=== PATIENT | male | born 1965 | race Caucasian/White ===

== ENCOUNTER 2023-03-10 09:12 | Outpatient (CLI) | payer OTHER, SELFPAY ==
--- NOTE | ~2023-03-10 | CT_ITS ---
EXAMINATION: CT cervical spine wo con DATE: 03/10/2023 09:49 INDICATION: Neck pain TECHNIQUE: Computed tomography (CT) of the cervical spine was performed without intravenous contrast. The dose-length product (DLP) was 429.98 mGy-cm. Automated exposure control and iterative reconstruc tion technique were employed. COMPARISON: None FINDINGS: There are 6 mm of anterolisthesis of C3 on C4. Bone alignment is otherwise normal. There is mild loss of intervertebral disc space height from C3-4 through C7-T1. There is severe facet and unc overtebral joint osteoarthritis at C3-4 and C4-5. The odontoid process is intact. The prevertebral so ft tissues are unremarkable. Small degenerative osteophytes project from the anterior endplates of mu ltiple vertebral bodies. IMPRESSION: 1. Grade 1 anterolisthesis of C3 on C4, otherwise mild to moderate cervical spondylosis. Reviewed, dictated and finalized at location B. IMPRESSION: 1. Grade 1 anterolisthesis of C3 on C4, otherwise mild to moderate cervical spo ndylosis.
--- NOTE | ~2023-03-10 | XR_ITS ---
EXAMINATION:[id number]_CR DATE: 03/10/2023 09:37 INDICATION: Neck pain TECHNIQUE: AP, lateral, lateral swimmers and odontoid views of the cervical spine are provided. COMPARISON: None FINDINGS: There are 6 mm of anterolisthesis of C3 on C4. The odontoid process is intact. No fracture is identified. The vertebral body heights are normal. There is mild loss of intervertebral disc space height from C3-4 through C7-T1. Prevertebral soft tissues are normal. There is severe facet and unco vertebral joint osteoarthritis at C3-4 and C4-5. IMPRESSION: 1. Grade 1 anterolisthesis of C3 on C4, otherwise mild to moderate cervical spondylosis. Reviewed, dictated and finalized at location B. IMPRESSION: 1. Grade 1 anterolisthesis of C3 on C4, otherwise mild to moderate cervical spo ndylosis.
== END 2023-03-10 09:13 | disposition home or self-care (01) ==
PROVIDERS: PCP Internal Medicine; Visit Provider Neurological Surgery
DX: M48.02 Spinal stenosis, cervical region (principal); M47.892 Other spondylosis, cervical region
CPT/HCPCS: 72040; 72125

== ENCOUNTER 2024-08-12 07:50 | Emergency (ER) | payer OTHER, SELFPAY ==
--- NOTE | ~2024-08-12 | CT_ITS ---
Non-contrast Head CT History: Trauma Technique: Axial non-contrast imaging of the brain was performed. Dose reduction technique was used on this scan by utilizing automated exposure control and iterative reconstruction technique. The dose -length product (DLP) was 605.33 mGy-cm. Findings: There is no evidence of intracranial hemorrhage, mass lesion, or acute infarct. There are patchy areas of decreased attenuation in the left centrum semiovale and left frontal lobe, suggestive areas of chronic infarct.. The ventricles and subarachnoid spaces are normal in size. The calvariu m appears normal. The visualized paranasal sinuses and mastoid air cells are clear. Impression: No acute abnormality seen. 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 Reviewed, dictated and finalized at location . INE FURNACE TENDER Impression: No acute abnormality seen. Multifocal areas of probable chronic infarction in the left centrum semiovale a nd left frontal lobe.
--- NOTE | ~2024-08-12 | XR_ITS ---
EXAMINATION: XR chest 2V DATE: 08/12/2024 09:09 INDICATION: Fall. Syncope. TECHNIQUE: frontal and lateral views of the chest were obtained. COMPARISON: Chest radiograph dated 08/27/2005 FINDINGS: Patient is rotated slightly towards the right on the frontal projection. Subtle lingular opacities at the anterior left lower lung zone which could represent atelectasis or pneumonia.. No other airspace opacities, pulmonary edema, pleural effusion or pneumothorax. Heart size is normal. IMPRESSION: 1. Mild lingular opacities consistent with atelectasis versus pneumonia. Reviewed, dictated and finalized at location A. T MAKER
--- NOTE | ~2024-08-12 | CT_ITS ---
Noncontrast CT scan of the cervical spine Technique: Multiple contiguous axial [address] images of the cervical spine were obtained and rec onstructed in 2D sagittal and coronal planes on the acquisition scanner. Dose reduction technique was used on this scan by utilizing automated exposure control, adjustment of the mA and/or kV according to patient size. The dose-length product (DLP) was 359.16 mGy-cm. Clinical History: Pain COMPARISON: 03/10/2023 Findings: No acute fracture or subluxation. Stable osseous alignment from prior exam. Stable 5 mm ant erolisthesis of C3 over C4. Stable minimal grade 4 mm anterolisthesis of C4 over C5. At C2-C3, there is mild degenerative disc change. No definite canal stenosis, cord compression, or ne ural foraminal narrowing. At C3-C4, there is severe facet arthropathy. Listhesis results in probable mild canal stenosis and se aiyana bilateral neural foraminal narrowing. At C4-C5, there is advanced facet arthropathy with bilateral neural foraminal narrowing. No definite canal stenosis or cord compression. At C5-C6, there is probable bilateral neural foraminal narrowing. No definite canal stenosis or cord compression. At C6-C7, there is disc ossify complex with probable mild canal stenosis and associated bilateral elena ral foraminal narrowing probably present. Paravertebral soft tissues are unremarkable. No prevertebral soft tissue swelling. Impression: No acute fracture or subluxation of the cervical spine. There is stable 5 mm anterolisthesis of C3 ov er C4, and 4 mm anterolisthesis of C4 over C5. Moderate to advanced degenerative spondylitic changes, as above. Reviewed, dictated and finalized at [facility]. NCIAL RESERVE CLERK Impression: No acute fracture or subluxation of the cervical spine. There is stable 5 mm an terolisthesis of C3 over C4, and 4 mm anterolisthesis of C4 over C5. Moderate to advanced degenerative spondylitic changes, as above.
[2024-08-12 07:43] VITALS: BP 153/104; PULSE 110; RESP 16; TEMP 36.7; O2SAT 96
[2024-08-12 08:12] LABS: Basophils Absolute Auto 0.1 K/mm3 (0.0-0.1); Basophils Percent Auto 0.5 % (0.2-1.2); Eosinophils Absolute Auto 0.1 K/mm3 (0-0.3); Eosinophils Percent Auto 0.8 % (0-4.4); Hematocrit 43.7 % (42.0-52.0); Hemoglobin 14.3 g/dL (14.0-18.0); Immature Granulocyte Absolute 0.07 K/mm3 (0.00-0.031); Immature Granulocyte Percent A 0.4 % (0-0.5); Lymphocytes Absolute Auto 0.79 K/mm3 (0.9-3.2); Lymphocytes Percent Auto 4.4 % (18.3-44.2); Mean Corpuscular HGB Conc 32.7 g/dl (32-36); Mean Corpuscular Hemoglobin 30.3 pg (26-34); Mean Corpuscular Volume 92.6 fl (80-100); Mean Platelet Volume 11.6 fl (7.4-10.4); Monocytes Percent Auto 5.6 % (2.6-8.5); Neutrophils Absolute Auto 15.9 K/mm3 (1.3-6.7); Neutrophils Percent Auto 88.3 % (45.5-73.1); Platelet Count Result 219 k/mm3 (150-375); Red Blood Count 4.72 M/mm3 (4.6-6.20); Red Cell Distribution Width 13.2 % (11.5-14.5)
[2024-08-12] MEDS: SODIUM CHLORIDE 0.9% IV 1,000 ML 999 ML IV CONT (08:20)
[2024-08-12 08:23] LABS: Alanine Aminotransferase 21 U/L (6-50); Albumin Level 3.9 g/dL (3.5-5.1); Alkaline Phosphatase 89 U/L (38-126); Anion Gap 7 mmol/L (4-12); Aspartate Amino Transferase 19 U/L (17-59); Bilirubin,Total 0.7 mg/dL (0.2-1.3); Blood Urea Nitrogen 9 mg/dL (9-20); Carbon Dioxide 30 mmol/L (22-30); Chloride 99 mmol/L (98-107); Estimated CRCL calculation 104 ml/min; Estimated Glomerular Filt Rate > 60; Glucose 167 mg/dL (65-110); Potassium 3.8 mmol/L (3.4-5.0); Sodium 136 mmol/L (137-145)
--- NOTE | 2024-08-12 08:27 | ED_ITS ---
HPI - Fall General Chief Complaint: Fall Stated Complaint: fall History of Present Illness HPI Narrative: Patient is a 58-year-old male who presents ER after falling out of his bed. He reports he did not stand up to get out of bed and merely woke up on the ground surrounded by healthcare workers. He does have contusion to left forehead. His roommate reports he was unconscious. Patient has no reports of pain. He does have an abrasion to left forearm. He has mild neck discomfort and is placed in a C-collar. Denies any recent symptoms of illness. Related Data Home Medications ?Medication ?Instructions ?Recorded ?Confirmed ?Last Taken ?Type alprazolam 0.5 mg tablet 0.5 mg PO TID PRN 01/10/23 Unknown History empagliflozin 10 mg-metformin ER 1 tablet PO DAILY 01/10/23 Unknown History 1,000 mg tablet,extended release 24hr (Synjardy XR) glimepiride 4 mg tablet 4 mg PO QAM 01/10/23 Unknown History lisinopril 20 1 tablet PO DAILY 01/10/23 Unknown History mg-hydrochlorothiazide 12.5 mg tablet pioglitazone 15 mg tablet 15 mg PO DAILY 01/10/23 Unknown History simvastatin 40 mg tablet 40 mg PO DAILY 01/10/23 Unknown History Allergies Allergy/AdvReac Type Severity Reaction Status Date / Time No Known Allergies Allergy Unverified 01/10/23 09:00 Review of Systems 2 Review of Systems: All systems reviewed & are unremarkable except as noted in HPI and below Constitutional: Constitutional: Reports no additional constitutional complaints ENT: Reports system reviewed and no additional complaints, except as documented Cardiovascular: Cardiovascular: Reports no additional cardiovascular complaints Respiratory: Respiratory: Reports no additional respiratory complaints Musculoskeletal: Musculoskeletal: Reports no additional musculoskeletal complaints Neurologic: Reports system reviewed and no additional complaints, except as documented [facility] Family History Family History (Updated 01/10/23 @ 09:08 by Jessica Snyder MA) Father Diabetes mellitus Cancer Mother Hypertension Heart disease Social History Social History (Updated 01/10/23 @ 09:07 by Jessica Snyder MA) Social History: Clifton is very confident filling out medical forms. In the last 12 months he has not received assistance from an organization or program. 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 Lack of Transportation: No Lack of Food: Sometimes True Current Housing: I Have Housing Concerned About Future Housing: No Difficulty Paying Gas/Electric Bills: No Difficulty Paying for Meds: No Currently Unemployed: No Education: High School Diploma/GED Difficulty w/ Childcare or Family Care: No Living arrangements: alone Occupation/Education: occupation 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 HEAD: Normocephalic, atraumatic. ENT: Mucous membranes moist. NECK: Supple. No midline tenderness, C-spine immobilized. CHEST: Clear to auscultation. No respiratory distress. HEART: Regular rate and rhythm. Normal peripheral pulses. ABDOMEN: Soft, nontender, nondistended. G-tube in epigastric. EXTREMITIES: Normal range of motion. No edema. SKIN: Warm, dry, no rash. Left forearm abrasion. NEURO: Alert and oriented x3. PSYCH: Normal mood and affect. Course Course Emergency Course: Patient resting comfortably. No complaints. Hydrated. Ambulatory without hypoxia and with a steady gait using walker. Appropriate for discharge home. Will place on antibiotics given lingular abnormality an elevated white blood cell count. Vital Signs Vital signs: Vital Signs Temperature 98.1 F 08/12/24 07:43 Pulse Rate 110 H 08/12/24 07:43 Respiratory Rate 16 08/12/24 07:43 Blood Pressure 153/104 H 08/12/24 07:43 Pulse Oximetry 96 08/12/24 07:43 Oxygen Delivery Room Air 08/12/24 07:43 Temperature 98.1 F 08/12/24 07:43 Pulse Rate 110 H 08/12/24 07:43 Respiratory Rate 16 08/12/24 07:43 Blood Pressure 153/104 H 08/12/24 07:43 Pulse Oximetry 96 08/12/24 07:43 Oxygen Delivery Room Air 08/12/24 07:43 MDM - Fall Lab Data 08/12/24 08:05 08/12/24 08:05 Labs: Lab Results 08/12/24 08/12/24 Range/Units 08:05 08:52 WBC 18.0 H (4.5-10.0) K/mm3 RBC 4.72 (4.6-6.20) M/mm3 Hgb 14.3 (14.0-18.0) g/dL Hct 43.7 (42.0-52.0) % MCV 92.6 (80-100) fl MCH 30.3 (26-34) pg MCHC 32.7 (32-36) g/dl RDW 13.2 (11.5-14.5) % Plt Count 219 (150-375) k/mm3 MPV 11.6 H (7.4-10.4) fl Immature Gran % (Auto) 0.4 (0-0.5) % Neut % (Auto) 88.3 H (45.5-73.1) % Lymph % (Auto) 4.4 L (18.3-44.2) % [place] % (Auto) 5.6 (2.6-8.5) % Eos % (Auto) 0.8 (0-4.4) % Baso % (Auto) 0.5 (0.2-1.2) % Lymph # (Auto) 0.79 L (0.9-3.2) K/mm3 Cascade # (Auto) 1.0 H (0.1-0.6) K/mm3 Eos # (Auto) 0.1 (0-0.3) K/mm3 Baso # (Auto) 0.1 (0.0-0.1) K/mm3 Abs Immat Gran (auto) 0.07 H (0.00-0.031) K/mm3 Absolute Neuts (auto) 15.9 H (1.3-6.7) K/mm3 Absolute Nucleated RBC 0.000 (0.0-0.012) K/mm3 Nucleated RBC % 0.0 (0.0-0.2) % Sodium 136 L (137-145) mmol/L Potassium 3.8 (3.4-5.0) mmol/L Chloride 99 (98-107) mmol/L Carbon Dioxide 30 (22-30) mmol/L Anion Gap 7 (4-12) mmol/L BUN 9 (9-20) mg/dL Creatinine 0.67 L (0.7-1.3) mg/dL Estim Creat Clear Calc 104 ml/min Estimated GFR > 60 (59 - ) Glucose 167 H (65-110) mg/dL Calcium 9.0 (8.4-10.2) mg/dL Total Bilirubin 0.7 (0.2-1.3) mg/dL AST 19 (17-59) U/L ALT 21 (6-50) U/L Alkaline Phosphatase 89 (38-126) U/L Total Creatine Kinase 56 (55-170) U/L Total Protein 7.0 (6.3-8.2) g/dL Albumin 3.9 (3.5-5.1) g/dL Urine Color Yellow (Yellow) Urine Appearance Clear (Clear) Urine pH 8.0 (5.0-9.0) Ur Specific [place] 1.010 (1.001-1.035) Urine Protein Trace (Negative) mg/dL Urine Glucose (UA) Negative (Negative) mg/dL Urine Ketones Negative (Negative) mg/dL Ur Blood (Man) Negative (Negative) Urine Nitrate Negative (Negative) Urine Bilirubin Negative (Negative) Urine Urobilinogen 0.2 (<2.0) mg/dL Leukocyte Esterase Rfl Negative (Negative) KO/UL Urine RBC 0-2 (0-2) /hpf Urine WBC 0-5 (0-3) /hpf Ur Squamous Epith Cells None seen (Few) /hpf Urine Bacteria None seen /hpf Urine Casts 0-2 Imaging Data Radiologist's impression: ITS Impressions Head CT 08/12/24 08:31 Impression: No acute abnormality seen. 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 Cervical Spine CT 08/12/24 08:32 Impression: No acute fracture or subluxation of the cervical spine. There is stable 5 mm anterolisthesis of C3 over C4, and 4 mm anterolisthesis of C4 over C5. Moderate to advanced degenerative spondylitic changes, as above. Chest X-Ray 08/12/24 09:09 IMPRESSION: 1. Mild lingular opacities consistent with atelectasis versus pneumonia. Discharge Plan Discharge Clinical Impression: Pneumonia, Contusion of head Patient Disposition: Home, Self-Care Condition: Stable Instructions: Antibiotic Form, Pneumonia (ED) Additional Instructions: Please return to the emergency department if you develop severe and persistent chest pain, difficulty breathing, dizziness, leg swelling or if you are coughing up blood as these can be signs of a medical emergency. Please call your doctor for a follow up appointment to determine the need for further testing. Patient Language: German Prescriptions: New amoxicillin-pot clavulanate 875-125 mg tablet 1 tablet PO Q12H Qty: 10 0RF No Action alprazolam 0.5 mg tablet 0.5 mg PO TID PRN glimepiride 4 mg tablet 4 mg PO QAM Rx Instructions: administer with breakfast lisinopril-hydrochlorothiazide 20-12.5 mg tablet 1 tablet PO DAILY simvastatin 40 mg tablet 40 mg PO DAILY Synjardy XR 10-1,000 mg tablet, IR - ER, biphasic 24hr 1 tablet PO DAILY pioglitazone 15 mg tablet 15 mg PO DAILY Follow-up/Referrals: Jose,Clifton Glasgow MD [Primary Care Provider] - 1 Week
--- OUTSIDE RECORDS SUMMARY | 2024-08-12 08:27 | XMS_ITS | Clinical Summary ---
Author Organization [employer] Administrative Offices Address [address] [place] [address] Care Team Providers Care Central Aisle Cashier Name Role Phone Clifton Garcia MD Primary Care Provider [phone] Allergies No known active allergies Medications lisinopril-hydr ochlorothiazide (ZESTORETIC) 20-12.5 mg Oral tablet Take 1 Tab by mouth daily. Active metFORMIN (GLUCOPHAGE) 500 mg Oral tablet Take 1 Tab by mouth 2 times daily. Active ALPRAZolam (XANAX) 0.25 mg Oral tablet Take 0.5 mg by mouth 3 times daily as needed . Active sertraline (ZOLOFT) 50 mg Oral tablet Take 2 Tablets by mouth daily . Active pioglitazone (ACTOS) 15 mg tablet Take 15 mg by mouth daily with breakfast. Active glimepiride (AMARYL) 4 mg tablet Take 4 mg by mouth daily with breakfast. Active ibuprofen (MOTRIN) 600 mg tablet Take 1 Tablet (600 mg) by mouth every 8 hours. 20 Tablet 09/09/2017 Active cyclobenzaprine (FLEXERIL) 5 mg Tablet Take 1 Tablet (5 mg) by mouth 3 times daily as needed for Spasm. 12 Tablet 09/09/2017 Active simvastatin (ZOCOR) 10 mg tablet Take 40 mg by mouth daily with supper . Active metFORMIN (GLUCOPHAGE XR) 500 mg Extended Release 24 hour tablet Take 500 mg by mouth daily with breakfast. Active Active Problems Problem Noted Date Diagnosed Date Episode of syncope 11/16/2018 Leukocytosis (leucocytosis) 11/16/2018 Type 2 diabetes mellitus with hyperglycemia 10/22 Tobacco abuse 11/16/2018 Hypotensive episode Immunizations Immunization Administration Dates Next Due (PNEUMOVAX 23)(50 YRS UP) PN EUMOCOCCAL POLYSACCHARIDE (PPV23) 0.5 ML, IM 11/16/2018() Family History Medical History Relation Name Comments Cancer Brother Cancer Father Diabetes Father Hypertension Father Heart Disease Mother Hypertension Mother Relation Name Status Comments Brother Alive Father Mother Sister Alive Social History Tobacco Use Types Packs/Day Years Used Date Smoking Tobacco: Every Day Cigarettes 1 25 Smokeless Tobacco: Never Tobacco Cessation:Ready to Q uit: Yes; Counseling Given: Yes Comments:Jun 2007 Alcohol Use Standard Drinks/Week Comments Yes 3 (1 standard drink = 0.6 oz pur e alcohol) Sex and Gender Information Value Date Recorded Sex Assigned at Not on file 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 Gender Identity Not on file Sexual Orientation Not on file Occupation Industry Job Start Date Job End Date Not on file Not on file Not on file Not on file Last Filed Vital Signs Vital Sign Reading Time Taken Comments Blood Pressure 188/85 11/16/2018 9:53 AM CDT Pulse 73 11/16/2018 8:00 AM CDT Temperature 36.8 C (98.3 F) 11/16/2018 8:00 AM CDT Respiratory Rate 18 11/16/2018 8:00 AM CDT Oxygen Saturation 99% 11/16/2018 8:00 AM CDT Inhaled Oxygen Concentration - - Weight 81.3 kg (179 lb 4.8 oz) 11/15/2018 8:42 P M CDT Height 180.3 cm (5' 11 ) 11/15/2018 8:42 PM CDT Body Mass Index 25.01 11/15/2018 8:42 PM CDT Plan of Treatment Health Maintenance Due Date Last Done Comments DIABETES ANNUAL FOOT EXAM 09/28/1981 DIABETES ANNUAL RETINAL EXAM 09/28/1981 DIABETES MICROALBUMIN ANNUAL SCREEN 09/28/1981 LDL CHOLESTEROL ANNUAL 09/28/1981 DTAP/TDAP/TD VACCINES (1 - Tdap) 09/28/1982 COLORECTAL SCREENING 09/28/2008 Colorectal Cancer Screening 09/28/2008 FIT-DNA Q 3 years 09/28/2008 FIT/FOBT Q 1 year 09/28/2008 Flex Sig/CT Colonography Q 5 years 09/28/2008 ZOSTER VACCINE (1 of 2) 09/28/2013 DIABETES HBA1C Q 6 MONTHS 05/18/20202019, 11/15/2018 INFLUENZA VACCINE (#1) 2024 RSV VACCINE (60+ or ) (1 - 1-dose 75+ series) 09/28/2038 HEPATITIS B VACCINES Aged Out No long er eligible based on patient's age to complete this topic Procedures Procedure Name Priority Date/Time Associated Diagnosis Comments HEMOGLOBIN A1C Routine 11/15/2018 4:43 PM CDT from Last 3 Months or Most Recently Relevant to Health Maintenance Results * (ABNORMAL) HEMOGLOBIN A1C (11/15/2018 4:43 PM CDT) HEMOGLOBIN A1C 10.6(H) See comment % 11/15/2018 9:12 PM CDT [facility] EST. AVG GLUCOSE, A1C 258 mg/dL 11/15/2018 9:12 PM CDT [facility] [facility] [facility] Blood Venipuncture / Unknown 11/15/2018 4:43 PM CDT 11/15/2018 4:49 PM CDT Narrative [facility] [employer] [facility] - 11/15/2018 9:12 PM CDT HGB A1C INTERPRETATION NORMAL: <5.7% PRE-DIABETES: 5.7 - 6.4% DIABETES: 6.5% OR GREATER us Zee Isaacs NP CHEMISTRY ORDERABLES Final Re sult [facility] [employer] [facility] CLIA# [id number] [place] [address] from Last 3 Months or Most Recently Relevant to Health Maintenance Insurance [facility] [id number] [facility] [id number] Advance Directives For more information, please contact: [phone] * Full Code (Latest Code Status on File) Date Activated Date Inactivated Comments 11/15/2018 8:45 PM 11/16/2018 3:20 PM * Full Code Date Activated Date Inactivated Comments 10/24/2009 7:24 AM 10/25/2009 2:32 AM Care Teams Central Aisle Cashier Relationship Specialty [place] [address] [place] [address] PCP - General 04/25/09
--- OUTSIDE RECORDS SUMMARY | 2024-08-12 08:28 | XMS_ITS | Encounter Summary ---
Author Organization [employer] Address 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 Gender Identity Not on file Sexual Orientation Not on file documented as of this encounter Plan of Treatment Not on file documented as of this encounter Procedures Procedure Name Priority Date/Time Associated Diagnosis Comments POC GLUCOSE Routine 09/02/2007 3:53 PM CDT PATHOLOGY Routine 09/02/2007 2:37 PM CDT POC GLUCOSE Routine 09/02/2007 2:36 PM CDT PATHOLOGY Routine 09/02/2007 1:48 PM CDT POC GLUCOSE Routine 09/02/2007 1:05 PM CDT POC GLUCOSE Routine 09/02/2007 12:23 PM CDT POC, BLOOD GASES Routine 09/02/2007 10:3 0 AM CDT documented in this encounter Results * (ABNORMAL) POC GLUCOSE (09/02/2007 3:53 PM CDT) GLUCOSE POC 196(H) 65 - 99 mg/dL [facility] Venous blood specimen (specimen) 09/02/2007 3:53 PM CDT 09/02/2007 3:53 PM CDT us Stephania Howard MD POINT OF CARE TESTING Final Resu lt Performing Organization Address City/State/[facility] Co de Phone Number [facility] [address] [place] [address] * PATHOLOGY (09/02/2007 2:37 PM CDT) FINAL REPORT [facility] [address] [place] [id number] Patient: FRANCK LOUISE : 1965 Procedure Date: 09/02/2007 Accession Date: 09/02/2007 Case No: [id number] Ordering Dr: STEPHANIA HOWARD Case types AW, BW, FW, NW and SH are performed by [place], [place] SURGICAL PATHOLOGY & NON-GYNECOLOGIC CYTOPATHOLOGY REPORT DIAGNOSIS LEFT NECK, FINE NEEDLE ASPIRATE, THINPREP CYTOLOGY AND CELL BLOCK EXAMINATION: - METASTATIC SQUAMOUS CARCINOMA (SEE DESCRIPTION). Specimen Description: FNA left neck mass. Operative Procedure: FNA left neck mass. Patient Information/Histor y/Diagnosis: A 41-year-old with left neck mass and left tonsillar lesion. See also [id number]. Gross: Received is one container with 30 cc blood-tinged fluid received in [employer]toLyt. MIKE/SHAJI 09.03.2007 03:24 pm Microscopic: The ThinPrep cytology preparation displays a cellular sample consisting of numerous pyknotic cells intermingled with atypical degenerated squamous epithelial cells; a few of these cells qualify as dysplastic keratinocytes. Rare anucleated squames are also present. The overall pattern is highly suspicious for squamous carcinoma. The cell block is examined at multiple levels. It displays isolated microfragments of squamous carcinoma set within a background of cellular degeneration. A single piece of distorted lymphoid stroma is also present. BBK/LKP 09.03.2007 03:24 pm Staging Form: No. ELECTRONIC SIGNATURE FOR AGUSTIN SINGER M.D.- 09/03/07 03:53 pm INTERFACE SYSTEM 09/02/2007 2:37 PM CDT Stephania Howard MD PATHOLOGY/CYTOLOGY ORDERABLES Fi nal Result Performing Organization Address City/[facility]/ZIP Co de Phone Number INTERFACE SYSTEM Refer to clinic/hospital department * (ABNORMAL) POC GLUCOSE (09/02/2007 2:36 PM CDT) GLUCOSE POC 210(H) 65 - 99 mg/dL [facility] Venous blood specimen (specimen) 09/02/2007 2:36 PM CDT 09/02/2007 2:36 PM CDT Stephania Howard MD POINT OF CARE TESTING Final Resu lt Performing Organization Address [facility] Co de Phone Number [facility] [address] [place] [address] * PATHOLOGY (09/02/2007 1:48 PM CDT) FINAL REPORT [facility] [address] [place], [place] [address] Patient: FRANCK LOUISE : 1965 Procedure Date: 09/02/2007 Accession Date: 09/02/2007 Case No: [id number] Ordering Dr: STEPHANIA HOWARD Case types AW, BW, FW, NW and SH are performed by [facility] [place], [place] SURGICAL PATHOLOGY & NON-GYNECOLOGIC CYTOPATHOLOGY REPORT DIAGNOSIS OROPHARYNX, LEFT PALATINE TONSIL, BIOPSY FOR FROZEN SECTION: - SQUAMOUS CELL CARCINOMA. - SEVERE DYSPLASIA. OROPHARYNX, LEFT PALATINE TONSIL, BIOPSY FOR PERMANENT SECTIONS: - DYSPLASIA, FOCAL. Specimen Description: (1) Left tonsil-for frozen section; (2) left tonsils-permanent. Operative Procedure: Micro-direct laryngoscopy; left tonsil biopsy; esophagoscopy. Patient Information/Histor y/Diagnosis: Left neck mass; left tonsil mass. Frozen Section: FS1: Tonsil, left, biopsy: - Architecturally complex atypical squamous proliferation, favor at least high-grade squamous dysplasia; cannot exclude invasion. - Acute inflammation. - Bacterial aggregates. [facility] 09.02.2007 04:01 pm Gross: Received are two containers labeled Franck Louise. Received in the first container, additionally labeled left tonsil for frozen section, is a 0.5 x 0.4 x 0.2-cm aggregate of multiple pink-cardoso tissue fragments which range from 0.1 cm to 0.3 cm in greatest dimension. The specimen is frozen entirely as FS1. The frozen section remnant is submitted in AFS1. Received in the second container, labeled left tonsil, is a 0.5 x 0.4 x 0.1-cm aggregate of pink-cardoso tissue fragments, which are submitted in block B1. [facility] 09.02.2007 04:01 pm Microscopic: Received are slides labeled [id number] Franck Louise. Review of frozen sections and subsequent permanent sections of left tonsil identify squamous cell carcinoma. The tonsillar epithelium is remarkable for foci of severe dysplasia. There is irregular extension of epithelium into the subepithelial stroma. Stromal fibrosis and infiltrates of plasma cells are present. The pattern is characteristic of invasive squamous cell carcinoma arising in the setting of severe dysplasia. The extent of invasion cannot be determined from this mucosal biopsy. Sections of left tonsillar biopsy for permanent sample stratified squamous epithelium and subepithelial stroma. There is very focal dysplasia of uncertain grade. Invasive carcinoma is not identified in this biopsy material. Summary of Significant Characteristics: Specimen Type: Biopsy. Tumor Site(s): Left tonsil. Tumor Size: Unknown. Histologic Type(s): Squamous cell carcinoma. Histologic Grade: Moderately differentiated. Extent of Invasion (TNM): TX NX MX. Perineural Invasion: Not identified. PJC/DRC 09.03.2007 12:59 pm Staging Form: Yes. ELECTRONIC SIGNATURE FOR SARAH SIN M.D.- 09/03/07 03:16 pm INTERFACE SYSTEM 09/02/2007 1:48 PM CDT Stephania Howard MD PATHOLOGY/CYTOLOGY ORDERABLES Fi nal Result Performing Organization Address City/[facility] Co de Phone Number INTERFACE SYSTEM Refer to clinic/hospital department * (ABNORMAL) POC GLUCOSE (09/02/2007 1:05 PM CDT) GLUCOSE POC 207(H) 65 - 99 mg/dL [facility] Venous blood specimen (specimen) 09/02/2007 1:05 PM CDT 09/02/2007 1:05 PM CDT Stephania Howard MD POINT OF CARE TESTING Final Resu lt Performing Organization Address [facility] Co de Phone Number [facility] [address] [place] [address] * (ABNORMAL) POC GLUCOSE (09/02/2007 12:23 PM CDT) GLUCOSE POC 197(H) 65 - 99 mg/dL [facility] Venous blood specimen (specimen) 09/02/2007 12:23 PM CDT 09/02/2007 12:23 PM CDT Stephania Howard MD POINT OF CARE TESTING Final Resu lt Performing Organization Address [facility] Co de Phone Number [facility] [address] [place] [address] * (ABNORMAL) POC RT, BLOOD GASES (09/02/2007 10:30 AM CDT) POTASSIUM POC 4.3 3.5 - 4.9 mmol/L [facility] HEMATOCRIT POC 49.0(H) 40.0 - 48.0 % [facility] PATIENT'S TEMPERATURE 37.0 Degree C [facility] COMMENT, GASES POC NOTIFIED [facility] Blood specimen (specimen) 09/02/2007 10:30 AM CDT 09/02/2007 10:30 AM CDT us Stephania Howard MD CHEMISTRY ORDERABLES Final Resul t Performing Organization Address City/State/[facility] Co de Phone Number [facility] [address] [place] [address] documented in this encounter Visit Diagnoses Not on filedocumented in this encounter Care Teams Felting Machine Operator Relationship Specialty [place] [address] [place] [address] PCP - General 04/25/09 documented as of this encounter
--- OUTSIDE RECORDS SUMMARY | 2024-08-12 08:28 | XMS_ITS | Referral Summary ---
Author Organization [facility] Address [address] [place] [address] Care Team Providers Care Marketing Communications Manager Name Role Phone Clifton Garcia MD Primary Care Provider [phone] Source Comments [facility],non-owned Affiliates and Associated Physician Practices is amultiple site organization consisting of ambulatory clinics and hospital sitesin [place], [place], [place] and [place]. This disclosure is being madepursuant to the Care Everywhere program and may not contain all information available regarding this patient. Last updated 18.[facility] [employer] Encounters Date Type Department Care Team Description 04/28/2024 9:22 AM ASSISTANT SCIENTIST - 06/02/2024 7:58 PM ASSISTANT SCIENTIST Hospital Encounter [facility] [id number] [place] [phone] Noam Jeff MD Esechie, Aimalohi, MD Jain, Aman, DO Edgell, Randall C, MD Scott, Jordan K, MD Linares, Guillermo, MD Nangle, Sarah E, DO Sonoda, Kento, MD Madi, Mahmoud, MD Fernelius, Joshua, MD Syed, MD Patrick Harris Keniesha O, MD Patel, Radhika, MD Internal Medicine Discharge Disposition: [facility] from Last 3 Months Allergies No known active allergies Medications * Be aware that medications may not be up to date on this document. Alwaysverify current medications with the patient. Medication Sig Dispensed Refills Start Date End Date Status metFORMIN (Glucophage) 500 MG tablet Take 1 (one) tablet by mouth 2 times daily with morning and evening meal Active polyethylene glycol 3350 (Miralax) 17 g packet 17 (seventeen) g by Enteral Tube route once daily 05/19/2024 Active senna (Senokot) 8.6 MG tablet 1 (one) tablet by Enteral Tube route once daily 05/19/2024 Active insulin aspart (NovoLOG) pen Inject 0 (zero) Units to 24 (twenty four) Units subcutaneously every 4 hours 05/18/2024 Active clopidogrel (plaVIX) 75 MG tablet Take 1 (one) tablet by mouth once daily 06/01/2024 Active atorvastatin (Lipitor) 80 MG tablet Take 1 (one) tablet by mouth at bedtime 06/01/2024 Active aspirin (Aspirin) 81 MG chew tablet Take 1 (one) tablet by mouth once daily 06/01/2024 Active finasteride (Proscar) 5 MG tablet Take 1 (one) tablet by mouth once daily 06/01/2024 Active insulin glargine (Lantus/Semglee) 100 units/mL pen Inject 30 (thirty) Units subcutaneously at bedtime 06/01/2024 Active vitamin D3 (Cholecalciferol) 25 MCG (1000 UNITS) tablet 4 (four) tablets by Enteral Tube route once daily 06/02/2024 Active multiple vitamins with iron tablet tablet 1 (one) tablet by Enteral Tube route once daily 06/02/2024 Active midodrine (Proamatine) 10 MG tablet 1 (one) tablet by Enteral Tube route every 8 hours 06/02/2024 Active Active Problems Problem Noted Date Diagnosed Date Severe malnutrition 06/01/2024 Adrenal insufficiency 05/08/2024 Partial anterior cerebral circulation infarction 05/04/2024 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 (FL UZONE; FLULAVAL; FLUARIX; AFLURIA TRIVALENT; 6MO+), 0.5 ML (IIV3) 06/01/2024 Social History Tobacco Use Types Packs/Day Years Used Date Smoking Tobacco: Every Day Pipe Tobacco Cessation:Ready to Q uit: Not Asked; Counseling Given: Not Answered AUDIT-C Answer Date Recorded Q1: How often do you have a drink containing alc ohol? Monthly or less 04/28/2024 Q2: How many drinks containi ng alcohol do you have on a typical day when you are drinking? 1 or 2 04/28/2024 Q3: How often do you have si x or more drinks on one occasion? Monthly 04/28/2024 Overall Financial Resource Strain (CARDIA) Answe r Date Recorded How hard is it for you to pa y for the very basics like food, housing, medical care, and heating? Not hard at all 04/28/2024 PHQ-2 Answer Date Recorded Patient Health Questionnaire-2 Score 0 05/12/2024 [facility] [place] [facility] - Occupational Stress Questionnaire Answer Date Recorded Do you feel stress - tense, restless, nervous, or anxious, or unable to sleep at night because your mind is troubled all the time - these days? Not at all 04/28/2024 Hunger Vital Sign Answer Date Recorded Within the past 12 months, y ou worried that your food would run out before you got the money to buy more. Never true 04/28/20 24 Within the past 12 months, t he food you bought just didn't last and you didn't have money to get more. Never true 04/28/2024 PRAPARE - Transportation Answer Date Re corded In the past 12 months, has l ack of transportation kept you from medical appointments or from getting medications? No 11/2023 In the past 12 months, has l ack of transportation kept you from meetings, work, or from getting things needed for daily living? No 04/28/2024 Housing Stability Vital Sign Answer Jose e Recorded In the last 12 months, was t here a time when you were not able to pay the mortgage or rent on time? No 04/28/2024 In the past 12 months, how m any times have you moved where you were living? 0 04/28/2024 At any time in the past 12 m [facility], were you homeless or living in a custodial (including now)? No 04/28/2024 Sex and Gender Information Value Date Recorded Sex Assigned at Not on file Gender Identity Not on file Sexual Orientation Not on file Last Filed Vital Signs Vital Sign Reading Time Taken Comments Blood Pressure 138/103 06/02/2024 7:26 PM ASSISTANT SCIENTIST Pulse 101 06/02/2024 7:26 PM ASSISTANT SCIENTIST Temperature 36.4 C (97.5 F) 06/02/2024 7:34 AM ASSISTANT SCIENTIST Respiratory Rate 18 06/02/2024 4:27 AM ASSISTANT SCIENTIST Oxygen Saturation 98% 06/02/2024 7:34 AM ASSISTANT SCIENTIST Inhaled Oxygen Concentration 28% 05/06/2024 7 :59 PM ASSISTANT SCIENTIST Weight 56.2 kg (124 lb) 05/27/2024 9:15 PM ASSISTANT SCIENTIST Height 177.8 cm (5' 10 ) 05/11/2024 8:00 AM ASSISTANT SCIENTIST Body Mass Index 17.79 05/11/2024 8:00 AM ASSISTANT SCIENTIST Functional Status Functional Status Response Date of Assess ment Is person deaf or have serious hearing difficult y? Yes 04/28/2024 Is person blind or have serious difficulty seein g? No 04/28/2024 Does person have serious dif ficulty walking/climbing stairs? No 04/28/2024 Does person have difficulty dressing/bathing? Ye s 04/28/2024 Does person have difficulty doing errands alone? Yes 04/28/2024 Cognitive Status Response Date of Assessm ent Does person have difficulty concentrating/remembering/making decisions? Yes 04/28/2024 Plan of Treatment Not on file Procedures Procedure Name Priority Date/Time Associated Diagnosis Comments GLUCOSE - POINT OF CARE Routine 06/02/2024 4:32 PM ASSISTANT SCIENTIST GLUCOSE - POINT OF CARE Routine 06/02/2024 11:17 AM ASSISTANT SCIENTIST GLUCOSE - POINT OF CARE Routine 06/02/2024 7:57 AM ASSISTANT SCIENTIST GLUCOSE - POINT OF CARE Routine 06/02/2024 4:35 AM ASSISTANT SCIENTIST GLUCOSE - POINT OF CARE Routine 06/02/2024 12:30 AM ASSISTANT SCIENTIST GLUCOSE - POINT OF CARE Routine 06/01/2024 8:52 PM ASSISTANT SCIENTIST GLUCOSE - POINT OF CARE Routine 06/01/2024 5:23 PM ASSISTANT SCIENTIST GLUCOSE - POINT OF CARE Routine 06/01/2024 2:47 PM ASSISTANT SCIENTIST GLUCOSE - POINT OF CARE Routine 06/01/2024 8:53 AM ASSISTANT SCIENTIST GLUCOSE - POINT OF CARE Routine 06/01/2024 7:31 AM ASSISTANT SCIENTIST GLUCOSE - POINT OF CARE Routine 06/01/2024 4:53 AM ASSISTANT SCIENTIST GLUCOSE - POINT OF CARE Routine 06/01/2024 12:38 AM ASSISTANT SCIENTIST GLUCOSE - POINT OF CARE Routine 05/31/2024 8:27 PM ASSISTANT SCIENTIST GLUCOSE - POINT OF CARE Routine 05/31/2024 4:27 PM ASSISTANT SCIENTIST GLUCOSE - POINT OF CARE Routine 05/31/2024 11:50 AM ASSISTANT SCIENTIST GLUCOSE - POINT OF CARE Routine 05/31/2024 8:31 AM ASSISTANT SCIENTIST GLUCOSE - POINT OF CARE Routine 05/31/2024 5:43 AM ASSISTANT SCIENTIST GLUCOSE - POINT OF CARE Routine 05/31/2024 12:42 AM ASSISTANT SCIENTIST GLUCOSE - POINT OF CARE Routine 05/30/2024 8:16 PM ASSISTANT SCIENTIST GLUCOSE - POINT OF CARE Routine 05/30/2024 4:40 PM ASSISTANT SCIENTIST GLUCOSE - POINT OF CARE Routine 05/30/2024 12:21 PM ASSISTANT SCIENTIST GLUCOSE - POINT OF CARE Routine 05/30/2024 8:19 AM ASSISTANT SCIENTIST GLUCOSE - POINT OF CARE Routine 05/30/2024 4:55 AM ASSISTANT SCIENTIST GLUCOSE - POINT OF CARE Routine 05/30/2024 1:09 AM ASSISTANT SCIENTIST GLUCOSE - POINT OF CARE Routine 05/30/2024 12:16 AM ASSISTANT SCIENTIST PHOSPHORUS BLOOD Routine 05/29/2024 8:44 PM ASSISTANT SCIENTIST MAGNESIUM BLOOD Routine 05/29/2024 8:44 PM ASSISTANT SCIENTIST CBC W/O DIFFERENTIAL Routine 05/29/2024 8:44 PM ASSISTANT SCIENTIST COMPREHENSIVE METABOLIC PANEL Routine 05/29/2024 8:44 PM ASSISTANT SCIENTIST GLUCOSE - POINT OF CARE Routine 05/29/2024 8:26 PM ASSISTANT SCIENTIST GLUCOSE - POINT OF CARE Routine 05/29/2024 11:33 AM ASSISTANT SCIENTIST GLUCOSE - POINT OF CARE Routine 05/29/2024 8:22 AM ASSISTANT SCIENTIST GLUCOSE - POINT OF CARE Routine 05/29/2024 3:46 AM ASSISTANT SCIENTIST GLUCOSE - POINT OF CARE Routine 05/29/2024 1:10 AM ASSISTANT SCIENTIST GLUCOSE - POINT OF CARE Routine 05/28/2024 8:19 PM ASSISTANT SCIENTIST GLUCOSE - POINT OF CARE Routine 05/28/2024 5:03 PM ASSISTANT SCIENTIST GLUCOSE - POINT OF CARE Routine 05/28/2024 11:43 AM ASSISTANT SCIENTIST GLUCOSE - POINT OF CARE Routine 05/28/2024 7:51 AM ASSISTANT SCIENTIST GLUCOSE - POINT OF CARE Routine 05/28/2024 3:47 AM ASSISTANT SCIENTIST GLUCOSE - POINT OF CARE Routine 05/27/2024 11:19 PM ASSISTANT SCIENTIST GLUCOSE - POINT OF CARE Routine 05/27/2024 8:14 PM ASSISTANT SCIENTIST GLUCOSE - POINT OF CARE Routine 05/27/2024 4:45 PM ASSISTANT SCIENTIST GLUCOSE - POINT OF CARE Routine 05/27/2024 12:20 PM ASSISTANT SCIENTIST GLUCOSE - POINT OF CARE Routine 05/27/2024 11:40 AM ASSISTANT SCIENTIST GLUCOSE - POINT OF CARE Routine 05/27/2024 8:29 AM ASSISTANT SCIENTIST GLUCOSE - POINT OF CARE Routine 05/27/2024 4:42 AM ASSISTANT SCIENTIST GLUCOSE - POINT OF CARE Routine 05/27/2024 12:25 AM ASSISTANT SCIENTIST GLUCOSE - POINT OF CARE Routine 05/26/2024 8:38 PM ASSISTANT SCIENTIST GLUCOSE - POINT OF CARE Routine 05/26/2024 5:03 PM ASSISTANT SCIENTIST GLUCOSE - POINT OF CARE Routine 05/26/2024 1:03 PM ASSISTANT SCIENTIST GLUCOSE - POINT OF CARE Routine 05/26/2024 12:24 PM ASSISTANT SCIENTIST GLUCOSE - POINT OF CARE Routine 05/26/2024 8:19 AM ASSISTANT SCIENTIST GLUCOSE - POINT OF CARE Routine 05/26/2024 3:28 AM ASSISTANT SCIENTIST GLUCOSE - POINT OF CARE Routine 05/26/2024 12:32 AM ASSISTANT SCIENTIST GLUCOSE - POINT OF CARE Routine 05/25/2024 8:21 PM ASSISTANT SCIENTIST GLUCOSE - POINT OF CARE Routine 05/25/2024 4:49 PM ASSISTANT SCIENTIST GLUCOSE - POINT OF CARE Routine 05/25/2024 12:08 PM ASSISTANT SCIENTIST GLUCOSE - POINT OF CARE Routine 05/25/2024 11:53 AM ASSISTANT SCIENTIST GLUCOSE - POINT OF CARE Routine 05/25/2024 7:51 AM ASSISTANT SCIENTIST GLUCOSE - POINT OF CARE Routine 05/25/2024 5:03 AM ASSISTANT SCIENTIST GLUCOSE - POINT OF CARE Routine 05/24/2024 11:05 PM ASSISTANT SCIENTIST GLUCOSE - POINT OF CARE Routine 05/24/2024 8:55 PM ASSISTANT SCIENTIST GLUCOSE - POINT OF CARE Routine 05/24/2024 4:24 PM ASSISTANT SCIENTIST GLUCOSE - POINT OF CARE Routine 05/24/2024 12:02 PM ASSISTANT SCIENTIST GLUCOSE - POINT OF CARE Routine 05/24/2024 8:28 AM ASSISTANT SCIENTIST GLUCOSE - POINT OF CARE Routine 05/24/2024 12:16 AM ASSISTANT SCIENTIST GLUCOSE - POINT OF CARE Routine 05/23/2024 9:56 PM ASSISTANT SCIENTIST GLUCOSE - POINT OF CARE Routine 05/23/2024 5:[address] BRAIN STROKE Routine 05/23/2024 12:36 PM ASSISTANT SCIENTIST Cerebrovascular accident (CVA), unspecified mechanism (HCC) GLUCOSE - POINT OF CARE Routine 05/23/2024 12:13 PM ASSISTANT SCIENTIST GLUCOSE - POINT OF CARE Routine 05/23/2024 8:14 AM ASSISTANT SCIENTIST GLUCOSE - POINT OF CARE Routine 05/23/2024 4:22 AM ASSISTANT SCIENTIST GLUCOSE - POINT OF CARE Routine 05/22/2024 11:44 PM ASSISTANT SCIENTIST GLUCOSE - POINT OF CARE Routine 05/22/2024 8:11 PM ASSISTANT SCIENTIST GLUCOSE - POINT OF CARE Routine 05/22/2024 5:27 PM ASSISTANT SCIENTIST GLUCOSE - POINT OF CARE Routine 05/22/2024 11:58 AM ASSISTANT SCIENTIST GLUCOSE - POINT OF CARE Routine 05/22/2024 7:36 AM ASSISTANT SCIENTIST CBC W/O DIFFERENTIAL Routine 05/22/2024 5:04 AM ASSISTANT SCIENTIST PHOSPHORUS BLOOD Routine 05/22/2024 5:03 AM ASSISTANT SCIENTIST MAGNESIUM BLOOD Timed 05/22/2024 5:03 AM ASSISTANT SCIENTIST BASIC METABOLIC PANEL (CALCIUM TOTAL) Routine 05/22/2024 5:03 AM ASSISTANT SCIENTIST GLUCOSE - POINT OF CARE Routine 05/22/2024 5:00 AM ASSISTANT SCIENTIST GLUCOSE - POINT OF CARE Routine 05/22/2024 12:54 AM ASSISTANT SCIENTIST GLUCOSE - POINT OF CARE Routine 05/21/2024 8:24 PM ASSISTANT SCIENTIST GLUCOSE - POINT OF CARE Routine 05/21/2024 4:43 PM ASSISTANT SCIENTIST GLUCOSE - POINT OF CARE Routine 05/21/2024 12:42 PM ASSISTANT SCIENTIST GLUCOSE - POINT OF CARE Routine 05/21/2024 11:52 AM ASSISTANT SCIENTIST GLUCOSE - POINT OF CARE Routine 05/21/2024 8:03 AM ASSISTANT SCIENTIST PHOSPHORUS BLOOD Routine 05/21/2024 5:35 AM ASSISTANT SCIENTIST MAGNESIUM BLOOD Timed 05/21/2024 5:35 AM ASSISTANT SCIENTIST CBC W/O DIFFERENTIAL Routine 05/21/2024 5:35 AM ASSISTANT SCIENTIST BASIC METABOLIC PANEL (CALCIUM TOTAL) Routine 05/21/2024 5:35 AM ASSISTANT SCIENTIST GLUCOSE - POINT OF CARE Routine 05/21/2024 4:59 AM ASSISTANT SCIENTIST GLUCOSE - POINT OF CARE Routine 05/20/2024 11:49 PM ASSISTANT SCIENTIST GLUCOSE - POINT OF CARE Routine 05/20/2024 8:28 PM ASSISTANT SCIENTIST GLUCOSE - POINT OF CARE Routine 05/20/2024 4:46 PM ASSISTANT SCIENTIST GLUCOSE - POINT OF CARE Routine 05/20/2024 12:14 PM ASSISTANT SCIENTIST C-PEPTIDE Routine 05/20/2024 10:17 AM ASSISTANT SCIENTIST PHOSPHORUS BLOOD Routine 05/20/2024 10:1 7 AM ASSISTANT SCIENTIST MAGNESIUM BLOOD Timed 05/20/2024 10:17 AM ASSISTANT SCIENTIST CBC W/O DIFFERENTIAL Routine 05/20/2024 10:17 AM ASSISTANT SCIENTIST BASIC METABOLIC PANEL (CALCIUM TOTAL) Routine 05/20/2024 10:17 AM ASSISTANT SCIENTIST GLUCOSE - POINT OF CARE Routine 05/20/2024 7:55 AM ASSISTANT SCIENTIST GLUCOSE - POINT OF CARE Routine 05/20/2024 3:57 AM ASSISTANT SCIENTIST GLUCOSE - POINT OF CARE Routine 05/20/2024 12:14 AM ASSISTANT SCIENTIST GLUCOSE - POINT OF CARE Routine 05/19/2024 8:07 PM ASSISTANT SCIENTIST GLUCOSE - POINT OF CARE Routine 05/19/2024 5:17 PM ASSISTANT SCIENTIST GLUCOSE - POINT OF CARE Routine 05/19/2024 11:28 AM ASSISTANT SCIENTIST GLUCOSE - POINT OF CARE Routine 05/19/2024 8:09 AM ASSISTANT SCIENTIST VITAMIN B12 AM Draw 05/19/2024 5:25 AM ASSISTANT SCIENTIST IRON + TRANSFERRIN PANEL Routine 05/19/2024 5:25 AM ASSISTANT SCIENTIST FOLATE Routine 05/19/2024 5:25 AM ASSISTANT SCIENTIST VITAMIN D 25-HYDROXY AM Draw 05/19/2024 5:25 AM ASSISTANT SCIENTIST PHOSPHORUS BLOOD Routine 05/19/2024 5:25 AM ASSISTANT SCIENTIST MAGNESIUM BLOOD Timed 05/19/2024 5:25 AM ASSISTANT SCIENTIST CBC W/O DIFFERENTIAL Routine 05/19/2024 5:25 AM ASSISTANT SCIENTIST BASIC METABOLIC PANEL (CALCIUM TOTAL) Routine 05/19/2024 5:25 AM ASSISTANT SCIENTIST GLUCOSE - POINT OF CARE Routine 05/19/2024 4:27 AM ASSISTANT SCIENTIST GLUCOSE - POINT OF CARE Routine 05/19/2024 12:14 AM ASSISTANT SCIENTIST GLUCOSE - POINT OF CARE Routine 05/18/2024 9:18 PM ASSISTANT SCIENTIST GLUCOSE - POINT OF CARE Routine 05/18/2024 5:48 PM ASSISTANT SCIENTIST GLUCOSE - POINT OF CARE Routine 05/18/2024 11:23 AM ASSISTANT SCIENTIST GLUCOSE - POINT OF CARE Routine 05/18/2024 7:56 AM ASSISTANT SCIENTIST GLUCOSE - POINT OF CARE Routine 05/18/2024 7:23 AM ASSISTANT SCIENTIST PHOSPHORUS BLOOD Routine 05/18/2024 5:35 AM ASSISTANT SCIENTIST MAGNESIUM BLOOD Timed 05/18/2024 5:35 AM ASSISTANT SCIENTIST CBC W/O DIFFERENTIAL Routine 05/18/2024 5:35 AM ASSISTANT SCIENTIST BASIC METABOLIC PANEL (CALCIUM TOTAL) Routine 05/18/2024 5:35 AM ASSISTANT SCIENTIST GLUCOSE - POINT OF CARE Routine 05/18/2024 4:04 AM ASSISTANT SCIENTIST GLUCOSE - POINT OF CARE Routine 05/17/2024 11:50 PM ASSISTANT SCIENTIST GLUCOSE - POINT OF CARE Routine 05/17/2024 8:48 PM ASSISTANT SCIENTIST GLUCOSE - POINT OF CARE Routine 05/17/2024 4:32 PM ASSISTANT SCIENTIST GLUCOSE - POINT OF CARE Routine 05/17/2024 12:17 PM ASSISTANT SCIENTIST GLUCOSE - POINT OF CARE Routine 05/17/2024 7:29 AM ASSISTANT SCIENTIST GLUCOSE - POINT OF CARE Routine 05/17/2024 4:01 AM ASSISTANT SCIENTIST PHOSPHORUS BLOOD Routine 05/17/2024 12:2 0 AM ASSISTANT SCIENTIST MAGNESIUM BLOOD Timed 05/17/2024 12:20 AM ASSISTANT SCIENTIST CBC W/O DIFFERENTIAL Routine 05/17/2024 12:20 AM ASSISTANT SCIENTIST BASIC METABOLIC PANEL (CALCIUM TOTAL) Routine 05/17/2024 12:20 AM ASSISTANT SCIENTIST GLUCOSE - POINT OF CARE Routine 05/17/2024 12:18 AM ASSISTANT SCIENTIST GLUCOSE - POINT OF CARE Routine 05/16/2024 8:36 PM ASSISTANT SCIENTIST GLUCOSE - POINT OF CARE Routine 05/16/2024 4:59 PM ASSISTANT SCIENTIST GLUCOSE - POINT OF CARE Routine 05/16/2024 12:28 PM ASSISTANT SCIENTIST GLUCOSE - POINT OF CARE Routine 05/16/2024 7:58 AM ASSISTANT SCIENTIST GLUCOSE - POINT OF CARE Routine 05/16/2024 4:12 AM ASSISTANT SCIENTIST PHOSPHORUS BLOOD Routine 05/15/2024 11:1 8 PM ASSISTANT SCIENTIST MAGNESIUM BLOOD Timed 05/15/2024 11:18 PM ASSISTANT SCIENTIST CBC W/O DIFFERENTIAL Routine 05/15/2024 11:18 PM ASSISTANT SCIENTIST BASIC METABOLIC PANEL (CALCIUM TOTAL) Routine 05/15/2024 11:18 PM ASSISTANT SCIENTIST GLUCOSE - POINT OF CARE Routine 05/15/2024 8:41 PM ASSISTANT SCIENTIST GLUCOSE - POINT OF CARE Routine 05/15/2024 4:42 PM ASSISTANT SCIENTIST BASIC METABOLIC PANEL (CALCIUM TOTAL) AM Draw 05/15/2024 2:29 PM ASSISTANT SCIENTIST GLUCOSE - POINT OF CARE Routine 05/15/2024 11:17 AM ASSISTANT SCIENTIST GLUCOSE - POINT OF CARE Routine 05/15/2024 8:10 AM ASSISTANT SCIENTIST GLUCOSE - POINT OF CARE Routine 05/15/2024 3:24 AM ASSISTANT SCIENTIST GLUCOSE - POINT OF CARE Routine 05/14/2024 11:13 PM ASSISTANT SCIENTIST PHOSPHORUS BLOOD Routine 05/14/2024 11:1 3 PM ASSISTANT SCIENTIST MAGNESIUM BLOOD Timed 05/14/2024 11:13 PM ASSISTANT SCIENTIST CBC W/O DIFFERENTIAL Routine 05/14/2024 11:13 PM ASSISTANT SCIENTIST BASIC METABOLIC PANEL (CALCIUM TOTAL) Routine 05/14/2024 11:13 PM ASSISTANT SCIENTIST GLUCOSE - POINT OF CARE Routine 05/14/2024 8:33 PM ASSISTANT SCIENTIST GLUCOSE - POINT OF CARE Routine 05/14/2024 4:12 PM ASSISTANT SCIENTIST PHOSPHORUS BLOOD Routine 05/14/2024 11:5 7 AM ASSISTANT SCIENTIST MAGNESIUM BLOOD Timed 05/14/2024 11:57 AM ASSISTANT SCIENTIST CBC W/O DIFFERENTIAL Routine 05/14/2024 11:57 AM ASSISTANT SCIENTIST BASIC METABOLIC PANEL (CALCIUM TOTAL) Routine 05/14/2024 11:57 AM ASSISTANT SCIENTIST GLUCOSE - POINT OF CARE Routine 05/14/2024 11:46 AM ASSISTANT SCIENTIST GLUCOSE - POINT OF CARE Routine 05/14/2024 8:32 AM ASSISTANT SCIENTIST GLUCOSE - POINT OF CARE Routine 05/14/2024 4:00 AM ASSISTANT SCIENTIST GLUCOSE - POINT OF CARE Routine 05/13/2024 11:08 PM ASSISTANT SCIENTIST PHOSPHORUS BLOOD Routine 05/13/2024 11:0 7 PM ASSISTANT SCIENTIST MAGNESIUM BLOOD Timed 05/13/2024 11:07 PM ASSISTANT SCIENTIST CBC W/O DIFFERENTIAL Routine 05/13/2024 11:07 PM ASSISTANT SCIENTIST BASIC METABOLIC PANEL (CALCIUM TOTAL) Routine 05/13/2024 11:07 PM ASSISTANT SCIENTIST GLUCOSE - POINT OF CARE Routine 05/13/2024 8:15 PM ASSISTANT SCIENTIST GLUCOSE - POINT OF CARE Routine 05/13/2024 4:15 PM ASSISTANT SCIENTIST GLUCOSE - POINT OF CARE Routine 05/13/2024 11:56 AM ASSISTANT SCIENTIST PHOSPHORUS BLOOD Routine 05/13/2024 11:5 4 AM ASSISTANT SCIENTIST MAGNESIUM BLOOD Timed 05/13/2024 11:54 AM ASSISTANT SCIENTIST CBC W/O DIFFERENTIAL Routine 05/13/2024 11:54 AM ASSISTANT SCIENTIST BASIC METABOLIC PANEL (CALCIUM TOTAL) Routine 05/13/2024 11:54 AM ASSISTANT SCIENTIST URINALYSIS REFLEX TO MICROSCOPIC NO CULTURE Routine 05/13/2024 11:27 AM ASSISTANT SCIENTIST LACTIC ACID BLOOD STAT 05/13/2024 8:0 5 AM ASSISTANT SCIENTIST GLUCOSE - POINT OF CARE Routine 05/13/2024 7:45 AM ASSISTANT SCIENTIST GLUCOSE - POINT OF CARE Routine 05/13/2024 4:17 AM ASSISTANT SCIENTIST PHOSPHORUS BLOOD Routine 05/13/2024 12:4 0 AM ASSISTANT SCIENTIST MAGNESIUM BLOOD Timed 05/13/2024 12:40 AM ASSISTANT SCIENTIST CBC W/O DIFFERENTIAL Routine 05/13/2024 12:40 AM ASSISTANT SCIENTIST BASIC METABOLIC PANEL (CALCIUM TOTAL) Routine 05/13/2024 12:40 AM ASSISTANT SCIENTIST GLUCOSE - POINT OF CARE Routine 05/13/2024 12:37 AM ASSISTANT SCIENTIST XR CHEST 1VW PORTABLE STAT 05/12/2024 7:52 PM ASSISTANT SCIENTIST Other specified hypotension GLUCOSE - POINT OF CARE Routine 05/12/2024 7:46 PM ASSISTANT SCIENTIST GLUCOSE - POINT OF CARE Routine 05/12/2024 4:08 PM ASSISTANT SCIENTIST FL SWALLOWING FUNCTION STUDY Routine 05/12/2024 2:11 PM ASSISTANT SCIENTIST 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) GLUCOSE - POINT OF CARE Routine 05/12/2024 12:34 PM ASSISTANT SCIENTIST PHOSPHORUS BLOOD Routine 05/12/2024 12:0 5 PM ASSISTANT SCIENTIST MAGNESIUM BLOOD Timed 05/12/2024 12:05 PM ASSISTANT SCIENTIST CBC W/O DIFFERENTIAL Routine 05/12/2024 12:05 PM ASSISTANT SCIENTIST BASIC METABOLIC PANEL (CALCIUM TOTAL) Routine 05/12/2024 12:05 PM ASSISTANT SCIENTIST GLUCOSE - POINT OF CARE Routine 05/12/2024 8:07 AM ASSISTANT SCIENTIST GLUCOSE - POINT OF CARE Routine 05/12/2024 4:07 AM ASSISTANT SCIENTIST HEMOGLOBIN A1C Add on 05/02/2024 9:09 AM ASSISTANT SCIENTIST from Last 3 Months or Most Recently Relevant to Health Maintenance Results * (ABNORMAL) GLUCOSE - POINT OF CARE (06/02/2024 4:32 PM ASSISTANT SCIENTIST) Only the most recent of134 resultswithin the time period is included. Pathologist [facility] Glucose WB/POC 249(H) 70 - 99 mg/dL 06/02/2024 4:59 PM ASSISTANT SCIENTIST [facility] Specimen Type Cap Fingerstick 2023 4:59 PM ASSISTANT SCIENTIST [facility] Blood BLOOD SPECIMEN / Unknown 06/02/2024 4:32 PM ASSISTANT SCIENTIST 06/02/2024 4:59 PM ASSISTANT SCIENTIST Elida Capellan MD LAB - POINT OF CARE ORDERABLES [address] [id number], [facility] [phone] * (ABNORMAL) CBC W/O DIFFERENTIAL (05/29/2024 8:44 PM ASSISTANT SCIENTIST) Only the most recent of14 resultswithin the time period is included. Pathologist [facility] WBC 8.6 4.0 - 10.7 x10E9/L 05/29/2024 9:21 PM ASSISTANT SCIENTIST [facility] RBC Count 4.24(L) 4.30 - 5.80 x10E12/L 05/29/2024 9:21 PM ASSISTANT SCIENTIST [facility] Hemoglobin 13.1(L) 13.3 - 17.5 g/dL 05/29/2024 9:21 PM [facility] Hematocrit 40.0 38.7 - 51.1 % 05/29/2024 9:21 PM [facility] MCV 94.3 80.0 - 98.0 fL 05/29/2024 9:21 PM [facility] MCH 30.9 26.7 - 33.6 pg 05/29/2024 9:21 PM [facility] MCHC 32.8 31.7 - 36.3 g/dL 05/29/2024 9:21 PM [facility] RDW-CV 14.7 11.3 - 14.8 % 05/29/2024 9:21 PM [facility] Platelet Count 177 150 - 420 x10E9/L 05/29/2024 9:21 PM [facility] MPV 12.8(H) 7.8 - 11.4 fL 05/29/2024 9:21 PM [facility] Blood BLOOD SPECIMEN / Unknown Lab Venipuncture / Unknown 05/29/2024 8:44 PM [facility] [employer] 05/29/2024 9:15 PM [facility] SCIENTIST Oral Nguyen MD LAB - HEMATOLOGY ORDERABLES Performing Organization Address City/State/[facility] Co de Phone Number [facility] [address] [place] [id number] [phone] * (ABNORMAL) COMPREHENSIVE METABOLIC PANEL (05/29/2024 8:44 PM [facility] SCIENTIST) BUN 26 7 - 26 mg/dL 05/29/2024 9:45 PM [facility] Creatinine 0.94 0.71 - 1.16 mg/dL 05/29/2024 9:45 PM [facility] Sodium 140 136 - 145 mmol/L 05/29/2024 9:45 PM [facility] Potassium 4.0 3.5 - 4.5 mmol/L 05/29/2024 9:45 PM [facility] Chloride 103 98 - 107 mmol/L 05/29/2024 9:45 PM [facility] CO2 27 22 - 29 mmol/L 05/29/2024 9:45 PM [facility] Glucose 194(H) 70 - 99 mg/dL 05/29/2024 9:45 PM [facility] Calcium 9.5 8.4 - 10.2 mg/dL 05/29/2024 9:45 PM [facility] Protein Total 6.7 6.0 - 8.3 g/dL 05/29/2024 9:45 PM [facility] Albumin 3.2(L) 3.4 - 5.0 g/dL 05/29/2024 9:45 PM [facility] Bilirubin Total 0.3 0.2 - 1.2 mg/dL 05/29/2024 9:45 PM [facility] Alkaline Phosphatase 72 40 - 150 U/L 05/29/2024 9:45 PM [facility] ALT 32 5 - 55 U/L 05/29/2024 9:45 PM [facility] AST 17 5 - 34 U/L 05/29/2024 9:45 PM [facility] Anion Gap 10 6 - 16 05/29/2024 9:45 PM [facility] BUN/Creatinine Ratio 28(H) 7 - 23 05/29/2024 9:45 PM [facility] Osmolality Calculated 300(H) 275 - 295 mOsm/kg 05/29/2024 9:45 PM [facility] Albumin/Globulin Ratio 0.9(L) 1.1 - 2.3 05/29/2024 9:45 PM [facility] eGFR by CKD-EPI >90 >=90 mL/min/1.7 3 m2 05/29/2024 9:45 PM [facility] Blood BLOOD SPECIMEN / Unknown Lab Venipuncture / Unknown 05/29/2024 8:44 PM ASSISTANT SCIENTIST 05/29/2024 9:15 PM ASSISTANT SCIENTIST Oral Nguyen MD LAB - CHEMISTRY O RDERABLES [facility] [address] [place] [address], [facility] [phone] * PHOSPHORUS BLOOD (05/29/2024 8:44 PM ASSISTANT SCIENTIST) Only the most recent of14 resultswithin the time period is included. Phosphorus 4.1 2.8 - 5.1 mg/dL 05/29/2024 9:45 PM ASSISTANT SCIENTIST [facility] Blood BLOOD SPECIMEN / Unknown Lab Venipuncture / Unknown 05/29/2024 8:44 PM ASSISTANT SCIENTIST 05/29/2024 9:15 PM ASSISTANT SCIENTIST Oral Nguyen MD LAB - CHEMISTRY O SALONI Performing Organization Address City/[facility]/ZIP Co de Phone Number [address] [address], [facility] [phone] * MAGNESIUM BLOOD (05/29/2024 8:44 PM ASSISTANT SCIENTIST) Only the most recent of14 resultswithin the time period is included. Magnesium 2.4 1.6 - 2.6 mg/dL 05/29/2024 9:45 PM ASSISTANT SCIENTIST [facility] Blood BLOOD SPECIMEN / Unknown Lab Venipuncture / Unknown 05/29/2024 8:44 PM ASSISTANT SCIENTIST 05/29/2024 9:15 PM ASSISTANT SCIENTIST Oral Nguyen MD LAB - CHEMISTRY O SALONI Performing Organization Address [facility] Co de Phone Number [address] [address], [facility] [phone] * CT Brain Stroke (05/23/2024 12:36 PM ASSISTANT SCIENTIST) Anatomical Region Laterality Modality Head Computed Tomogra phy 05/23/2024 12:3 3 PM ASSISTANT SCIENTIST Impressions 05/23/2024 12:43 PM ASSISTANT SCIENTIST IMPRESSION: 1. No acute intracranial hemorrhage. 2. Multiple areas of hypoattenuation with loss of gordon-white matter differentiation in the left greater than right cerebral hemispheres are consistent with developing encephalomalacia of areas of known infarct seen on the previous examination. These findings were discussed in detail with the patient's care provider, Dr. Hillman by Dr. Resendiz via telephone at 12:43 PM on 05/23/2024 with readback comprehension and verification. > Interpreting Provider: Yen Resendiz MD on 05/23/2024 12:43 PM Narrative 05/23/2024 12:43 PM ASSISTANT SCIENTIST PROCEDURE: CT BRAIN STROKE, DATE/TIME OF EXAM: 05/23/2024 12:36 PM, LOCATION [facility] INDICATION: I63.9: Cerebrovascular accident (CVA), unspecified mechanism (HCC) ADDITIONAL CLINICAL INFORMATION: Ordering Provider Reason For Exam: stroke Technologist Note: Additional: TECHNIQUE: CT of the head was performed without contrast according to standard protocol. CONTRAST: COMPARISON: Brain MRI dated 05/03/2024. FINDINGS: No acute intracranial hemorrhage or intra- or extra-axial fluid collections are identified. There is mild cerebral volume loss with associated ex vacuo ventricular dilatation. Multiple areas of hypoattenuation with loss of gordon-white matter differentiation in the left greater than right cerebral hemispheres are consistent with developing encephalomalacia of areas of known infarct seen on the previous examination. The basal cisterns are patent. No mass effect or midline shift is seen. The gordon-white matter differentiation is normal. Periventricular white matter hypoattenuation is a nonspecific finding that may be indicative of chronic small vessel ischemic disease. There is atherosclerotic calcification of the carotid siphons. The visualized portions of the orbits, paranasal sinuses, and mastoids appear normal. No acute calvarial fracture is identified. Procedure Note Yen Resendiz MD - 05/23/2024 PROCEDURE: CT BRAIN STROKE, DATE/TIME OF EXAM: 05/23/2024 12:36 PM, LOCATION [facility] INDICATION: I63.9: Cerebrovascular accident (CVA), unspecified mechanism (HCC) ADDITIONAL CLINICAL INFORMATION: Ordering Provider Reason For Exam: stroke Technologist Note: Additional: TECHNIQUE: CT of the head was performed without contrast according to standard protocol. CONTRAST: COMPARISON: Brain MRI dated 05/03/2024. FINDINGS: No acute intracranial hemorrhage or intra- or extra-axial fluidcollections are identified. There is mild cerebral volume loss with associated exvacuo ventricular dilatation. Multiple areas of hypoattenuation with loss of gordon-white matter differentiation in the left greater than rightcerebral hemispheres are consistent with developing encephalomalacia of areas of known infarct seen on the previous examination. The basal cisterns are patent. No mass effect or midline shift is seen. The gordon-white matter differentiation is normal. Periventricular white matter hypoattenuationis a nonspecific finding that may be indicative of chronic small vessel ischemic disease. There is atherosclerotic calcification of the carotid siphons. The visualized portions of the orbits, paranasal sinuses, and mastoids appear normal. No acute calvarial fracture is identified. IMPRESSION: 1. No acute intracranial hemorrhage. 2. Multiple areas of hypoattenuation with loss of gordon-white matter differentiation in the left greater than right cerebral hemispheres are consistent with developing encephalomalacia of areas of known infarctseen on the previous examination. These findings were discussed in detail with the patient's careprovider, Dr. Hillman by Dr. Resendiz via telephone at 12:43 PM on 05/23/2024 withreadback comprehension and verification. > Interpreting Provider: Yen Resendiz MD on 05/23/2024 12:43 PM Steffany Vidal MD CT ORDERABLES * (ABNORMAL) BASIC METABOLIC PANEL (CALCIUM TOTAL) (05/22/2024 5:03 AM ASSISTANT SCIENTIST) Only the most recent of14 resultswithin the time period is included. BUN 23 7 - 26 mg/dL 05/22/2024 7:15 AM [facility] Creatinine 1.02 0.71 - 1.16 mg/dL 05/22/2024 7:15 AM [facility] Sodium 143 136 - 145 mmol/L 05/22/2024 7:15 AM [facility] Potassium 4.3 3.5 - 4.5 mmol/L 05/22/2024 7:15 AM [facility] Chloride 104 98 - 107 mmol/L 05/22/2024 7:15 AM [facility] CO2 29 22 - 29 mmol/L 05/22/2024 7:15 AM [facility] Glucose 91 70 - 99 mg/dL 05/22/2024 7:15 AM [facility] Calcium 9.9 8.4 - 10.2 mg/dL 05/22/2024 7:15 AM [facility] Anion Gap 10 6 - 16 05/22/2024 7:15 AM [facility] BUN/Creatinine Ratio 23 7 - 23 05/22/2024 7:15 AM [facility] Osmolality Calculated 299(H) 275 - 295 mOsm/kg 05/22/2024 7:15 AM ASSISTANT SCIENTIST [facility] eGFR by CKD-EPI 84(L) >=90 mL/min/1.7 3 m2 05/22/2024 7:15 AM ASSISTANT SCIENTIST [facility] Blood BLOOD SPECIMEN / Unknown Lab Venipuncture / Unknown 05/22/2024 5:03 AM ASSISTANT SCIENTIST 05/22/2024 6:48 AM ASSISTANT SCIENTIST Patel Carroll MD LAB - CHEMISTRY ORD ERABLES [facility] [address] [place] [address], [facility] [phone] * (ABNORMAL) C-PEPTIDE (05/20/2024 10:17 AM ASSISTANT SCIENTIST) C-Peptide 4.0(H) 0.5 - 3.3 ng/mL 05/25/2024 9:33 PM ASSISTANT SCIENTIST [employer] ([facility]) Comment: INTERPRETIVE INFORMATION: Serum, C-Peptide Reference Interval applies to fasting specimens. To convert to nmol/L, multiply by 0.33 Performed By: [facility] [address] [place] [address] [employer] Grade Bulldozer Operator: Red Corbin MD, PhD CLIA Number: [id number] Blood BLOOD SPECIMEN / Unknown Lab Venipuncture / Unknown 05/20/2024 10:17 AM ASSISTANT SCIENTIST 05/20/2024 10:49 AM ASSISTANT SCIENTIST Marium Maria DO LAB - CHEMISTRY ORDE MARIANNA Performing Organization Address City/[facility]/ZIP Co de Phone Number [facility]) [address] * (ABNORMAL) VITAMIN D 25-HYDROXY (05/19/2024 5:25 AM ASSISTANT SCIENTIST) Vitamin D, 25 Hydroxy 28.4(L) 30.0 - 80.0 ng/mL 05/19/2024 7:38 AM ASSISTANT SCIENTIST [facility] Comment: The recommendations for 25-Hydroxy Vitamin D clinical decision points are as follows: Deficient: <20.0 ng/mL Insufficient: 20.0 - 29.9 ng/mL Sufficient: 30.0 - 100.0 ng/mL Potential Toxicity: >100 ng/mL Reference: The Endocrine Society Clinical Practice Guidelines. 2011 If the 25-Hydroxy Vitamin D results are inconsitent with clinical evidence, it is recommended that follow-up testing using a method such as LC/MS/MS be performed to confirm the result. Blood BLOOD SPECIMEN / Unknown Lab Venipuncture / Unknown 05/19/2024 5:25 AM ASSISTANT SCIENTIST 05/19/2024 6:32 AM ASSISTANT SCIENTIST Marium Maria DO LAB - CHEMISTRY ORDE MARIANNA [address] [address], [place] [phone] * FOLATE (05/19/2024 5:25 AM ASSISTANT SCIENTIST) Folate 14.8 7.0 - 31.4 ng/mL 05/19/2024 7:38 AM ASSISTANT SCIENTIST [facility] Blood BLOOD SPECIMEN / Unknown Lab Venipuncture / Unknown 05/19/2024 5:25 AM ASSISTANT SCIENTIST 05/19/2024 6:32 AM ASSISTANT SCIENTIST Marium Maria DO LAB - CHEMISTRY ORDE MARIANNA Performing Organization Address City/[facility]/ZIP Co de Phone Number [address] [address], [place] [phone] * VITAMIN B12 (05/19/2024 5:25 AM ASSISTANT SCIENTIST) Vitamin B12 627 213 - 816 pg/mL 05/19/2024 7:38 AM ASSISTANT SCIENTIST [facility] Blood BLOOD SPECIMEN / Unknown Lab Venipuncture / Unknown 05/19/2024 5:25 AM ASSISTANT SCIENTIST 05/19/2024 6:32 AM ASSISTANT SCIENTIST Marium Maria DO LAB - CHEMISTRY ORDE MARIANNA Performing Organization Address City/[facility]/ZIP Co de Phone Number [address] [address], [place] [phone] * (ABNORMAL) IRON + TRANSFERRIN PANEL (05/19/2024 5:25 AM ASSISTANT SCIENTIST) Iron 48(L) 50 - 175 ug/dL 05/19/2024 7:09 AM [facility] Transferrin 198 174 - 382 mg/dL 05/19/2024 7:09 AM [facility] Transferrin Saturation % 19 16 - 50 % 05/19/2024 7:09 AM [facility] TIBC Calculated 248 240 - 450 ug/dL 05/19/2024 7:09 AM [facility] Blood BLOOD SPECIMEN / Unknown Lab Venipuncture / Unknown 05/19/2024 5:25 AM ASSISTANT SCIENTIST 05/19/2024 6:[address] [facility] Marium Maria DO LAB - CHEMISTRY ORDE MARIANNA [facility] [address] [place] [address], [facility] [phone] * (ABNORMAL) URINALYSIS REFLEX TO MICROSCOPIC NO CULTURE (05/13/2024 11:27 AM ASSISTANT SCIENTIST) Color UA Yellow Straw, Yellow 05/13/2024 11:58 AM [facility] Clarity UA Clear Clear 05/13/2024 11:58 AM [facility] Specific Fackler UA 1.010 1.005 - 1.030 05/13/2024 11:58 AM [facility] pH UA 7.0 5.0 - 8.0 pH 05/13/2024 11:58 AM [facility] Protein UA Negative Negative 05/13/2024 11:58 AM [facility] Glucose UA 3+(A) Negative 05/13/2024 11:58 AM [facility] Ketone UA Negative Negative 05/13/2024 11:58 AM [facility] Bilirubin UA Negative Negative 05/13/2024 11:58 AM [facility] Blood UA Negative Negative 05/13/2024 11:58 AM [facility] Nitrite UA Negative Negative 05/13/2024 11:58 AM [facility] Leukocyte Esterase Negative Negative 05/13/2024 11:58 AM [facility] Urobilinogen UA Negative Negative mg/dL 05/13/2024 11:58 AM [facility] RBC UA 3-5 None Seen, 0-2, 3-5 /HPF 05/13/2024 11:58 AM [facility] WBC UA 0-5 None Seen, 0-5 /HPF 05/13/2024 11:58 AM [facility] Squamous Epithelial Cells UA None Seen None Seen, 0-2, 3-5 /HPF 05/13/2024 11:58 AM [facility] Urine URINE SPECIMEN OBTAINED BY SINGLE CATHETERIZATION OF URINARY BLADDER / Unknown Collection / Unknown 05/13/2024 11:27 AM ASSISTANT SCIENTIST 05/13/2024 11:36 AM ASSISTANT SCIENTIST Narrative [facility] - 05/13/2024 11:58 AM ASSISTANT SCIENTIST Sumanth Chacon FOOD PRESERVATION SCIENTIST-TRADER LAB - URINALYSIS O RDERABLES [address] [address], [facility] [phone] * LACTIC ACID BLOOD (05/13/2024 8:05 AM ASSISTANT SCIENTIST) Lactic Acid-Stat 1.0 <=2.0 mmol/L 05/13/2024 8:45 AM [facility] Blood BLOOD SPECIMEN / Unknown Venipuncture / Unknown 05/13/2024 8:05 AM ASSISTANT SCIENTIST 05/13/2024 8:13 AM ASSISTANT SCIENTIST Sonu Lemus MD LAB - CHEMISTRY [facility] [address] [address], [place] [phone] * XR Chest 1Vw Portable (05/12/2024 7:52 PM ASSISTANT SCIENTIST) Anatomical Region Laterality Modality Chest Digital Radiogra phy 05/13/2024 7:39 AM ASSISTANT SCIENTIST Impressions 05/13/2024 3:40 PM ASSISTANT SCIENTIST IMPRESSION: Mild amount of left medial basilar infiltrate and atelectasis. Report dictated by Summer Davidson MD, (Manager Filter). David Crane MD have personally reviewed and interpreted this examination/study. > Interpreting Provider: David Fitch MD on 05/13/2024 3:40 PM Narrative 05/13/2024 3:40 PM ASSISTANT SCIENTIST PROCEDURE: XR CHEST 1VW PORTABLE DATE/TIME OF EXAM: 05/12/2024 7:52 PM CLINICAL INFORMATION: None relevant/not provided if blank. Indication: I95.89: Other specified hypotension Additional History: ADDITIONAL CLINICAL INFORMATION: Ordering Provider Reason For Exam: concern for infection COMPARISON: Chest x-ray 05/04/2024. TECHNIQUE: Frontal radiograph of the chest. FINDINGS/IMPRESSION: AP portable semiupright view of the chest is performed and suggests subtle left medial basilar infiltrate/atelectasis. Left upper lung zone and visualized right lung appears clear. Lungs are hypoventilated. Heart, kar, mediastinum, pleural regions and vascular lung markings appeared within normal limits. Procedure Note David Fitch MD - 05/13/2024 PROCEDURE: XR CHEST 1VW PORTABLE DATE/TIME OF EXAM: 05/12/2024 7:52 PM CLINICAL INFORMATION: None relevant/not provided if blank. Indication: I95.89: Other specified hypotension Additional History: ADDITIONAL CLINICAL INFORMATION: Ordering Provider Reason For Exam: concern for infection COMPARISON: Chest x-ray 05/04/2024. TECHNIQUE: Frontal radiograph of the chest. FINDINGS/IMPRESSION: AP portable semiupright view of the chest is performed and suggestssubtle left medial basilar infiltrate/atelectasis. Left upper lung zone and visualized right lung appears clear. Lungs are hypoventilated. Heart, kar, mediastinum, pleural regions and vascular lung markings appeared within normal limits. IMPRESSION: Mild amount of left medial basilar infiltrate andatelectasis. Report dictated by Summer Davidson MD, (Manager Filter). David Crane MD have personally reviewed and interpreted this examination/study. > Interpreting Provider: David Fitch MD on 05/13/2024 3:40 PM Sonu Lemus MD DIAGNOSTIC IMAGING O RDERABLES * FL SWALLOWING FUNCTION STUDY (05/12/2024 2:11 PM ASSISTANT SCIENTIST) Anatomical Region Laterality Modality Chest Digital Radiogra phy 05/12/2024 2:35 PM ASSISTANT SCIENTIST Narrative 05/12/2024 6:40 PM ASSISTANT SCIENTIST PROCEDURE: FL SWALLOWING FUNCTION STUDY DATE/TIME OF EXAM: 05/12/2024 2:15 PM CLINICAL INFORMATION: None relevant/not provided if blank. 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 FLUOROSCOPY DOSE: 8.57 mGy Reference air kerma (ka,r). FLUOROSCOPY TIME: 3.51 minutes; Number of images: [id number] TECHNIQUE: Modified barium swallow fluoroscopy performed in conjunction with speech pathology staff. The speech pathologist administered varying thickness barium liquids and solids under direct Cine fluoroscopy. FINDINGS/IMPRESSION: Fluoroscopic assistance was provided for a modified barium swallow test performed by Speech Therapy. Please see the Speech Therapy report for details of the study and final recommendations. Report dictated by Summer Davidson MD, (global president). Betito Crane MD have personally reviewed and interpreted this examination/study. > Interpreting Provider: Betito Damico MD on 05/12/2024 6:40 PM Procedure Note Betito Damico MD - 05/12/2024 PROCEDURE: FL SWALLOWING FUNCTION STUDY DATE/TIME OF EXAM: 05/12/2024 2:15 PM CLINICAL INFORMATION: None relevant/not provided if blank. 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 FLUOROSCOPY DOSE: 8.57 mGy Reference air kerma (ka,r). FLUOROSCOPY TIME: 3.51 minutes; Number of images: [id number] TECHNIQUE: Modified barium swallow fluoroscopy performed in conjunction with speech pathology staff. The speech pathologist administered varying thickness barium liquids and solids under direct Cine fluoroscopy. FINDINGS/IMPRESSION: Fluoroscopic assistance was provided for a modified barium swallow test performed by Speech Therapy. Please see the Speech Therapy report for details of the study and final recommendations. Report dictated by Summer Davidson MD, (global president). Betito Crane MD have personally reviewed and interpreted this examination/study. > Interpreting Provider: Betito Damico MD on 05/12/2024 6:40 PM Sonu Lemus MD FLUOROSCOPY ORDERABL ES * (ABNORMAL) HEMOGLOBIN A1C (05/02/2024 9:09 AM ASSISTANT SCIENTIST) Hemoglobin A1c 8.5(H) <=5.6 % 05/02/2024 2:42 PM ASSISTANT SCIENTIST [facility] Estimated Average Glucose 197 mg/dL 05/02/2024 2:42 PM [facility] Comment: HbA1c Interpretation: Normal : < 5.7% Pre-diabetes: 5.7-6.4% Diabetes: Equal to or greater than 6.5% Test results diagnostic of diabetes should be repeated for confirmation. Treatment target values recommended by ADA and other clinical organizations should be used to evaluate metabolic control in patients. Reference: [place] [employer], Standards of Care in Diabetes -2020 In patients 70 years and older consider HbA1c target range of 7.0-7.5% (Reference: Rico Mercedes et al. JAMDA. 2012) The Sebia assay for the measurement of HbA1c is a National Glycohemoglobin Standardization Program (NGSP) certified method. Blood BLOOD SPECIMEN / Unknown Venipuncture / Unknown 05/02/2024 9:09 AM ASSISTANT SCIENTIST 05/02/2024 9:20 AM ASSISTANT SCIENTIST Martín Daly DO LAB - CHEMISTRY [facility] [address] [place] [address], [facility] [phone] from Last 3 Months or Most Recently Relevant to Health Maintenance Advance Directives * Full Code (Latest Code Status on File) Date Activated Date Inactivated Comments 04/28/2024 10:02 AM 06/02/2024 9:04 PM Care Teams Marketing Communications Manager Relationship Specialty [place] [address] [facility] [address] [place] [address] PCP - General Internal Medicine 04/28/24
--- OUTSIDE RECORDS SUMMARY | 2024-08-12 08:28 | XMS_ITS | Referral Summary ---
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 Name Role Phone Franck Garcia MD Primary Care Provider [phone] Encounters Date Type Department Care Team Description 07/08/2024 12:43 PM CLERICAL CLERK - 07/13/2024 2:20 PM CLERICAL CLERK Hospital Encounter [address] [address] PrograiLizet ham MD Lun, Yu, MD Lopez, Manuel Emilio, MD Syncope and collapse (Primary Dx); Sepsis due to Escherichia coli, unspecified whether acute organ dysfunction present (HCC); Benign prostatic hyperplasia, unspecified whether lower urinary tract symptoms present Discharge Disposition: Discharge to SNF 07/08/2024 NH/SNF Visit [facility] Medical [address] [phone] Percy Collins MD Syncope and collapse (Primary Dx); Type 2 diabetes mellitus without complication, with long-term current use of insulin ([facility]) (HCC); Dysphagia as late effect of cerebrovascular accident (CVA); PEG (percutaneous endoscopic gastrostomy) status ([facility]) (HCC); Hyperlipidemia, unspecified hyperlipidemia type 07/06/2024 NH/SNF Visit [facility] Medical Group Post [address] [phone] Pat Knight PA Neurogenic orthostatic hypotension (HCC) (Primary Dx); History of stroke; Type 2 diabetes mellitus without complication, with long-term current use of insulin (CMS/HCC) (HCC); Dysphagia as late effect of cerebrovascular accident (CVA); Urinary retention 07/01/2024 Documentation [facility] Medical [facility] Post [address] [phone] Percy Collins MD 06/30/2024 Orders [place] [facility] [place] [facility] [address] [place] [phone] Pat Knight PA 06/30/2024 NH/SNF Visit [facility] Acute Care [address] [phone] Pat Knight PA Dysphagia as late effect of cerebrovascular accident (CVA) (Primary Dx); Type 2 diabetes mellitus without complication, with long-term current use of insulin (CMS/[facility]) (HCC); Urinary retention 06/29/2024 1:00 PM CLERICAL CLERK - 06/29/2024 11:59 PM CLERICAL CLERK Hospital Encounter [facility] [address] [place] [address] Dysphagia as late effect of cerebrovascular accident (CVA) Discharge Disposition: Discharge to home or self care 06/29/2024 1:00 PM CLERICAL CLERK Therapy [facility] OP Speech Therapy [address] [address] Edson Talbert, CREW PERSON Dysphagia as late effect of cerebrovascular accident (CVA) (Primary Dx); Oropharyngeal dysphagia 06/28/2024 NH/SNF Visit [facility] Post [facility] [address] [phone] Pat Knight PA Type 2 diabetes mellitus without complication, with long-term current use of insulin (CMS/HCC) (HCC) (Primary Dx); Neurogenic orthostatic hypotension (HCC); History of stroke 06/23/2024 NH/SNF Visit [facility] Medical [facility] Post Acute Care [address] [phone] Pat Knight PA Dysphagia as late effect of cerebrovascular accident (CVA) (Primary Dx); Neurogenic orthostatic hypotension (HCC); Urinary retention 06/22/2024 Orders Only [facility] Medical Group Post Acute Care [address] [phone] Pat Knight PA Dysphagia as late effect of cerebrovascular accident (CVA) (Primary Dx) 06/21/2024 NH/SNF Visit [facility] Medical [facility] Acute Care [address] [phone] Pat Knight PA Type 2 diabetes mellitus without complication, with long-term current use of insulin (CMS/HCC) (HCC) (Primary Dx); History of stroke; Neurogenic orthostatic hypotension (HCC) 06/18/2024 NH/SNF Visit [facility] Medical [facility] Post [facility] [address] [phone] Percy Collins MD Type 2 diabetes mellitus without complication, with long-term current use of insulin (CMS/HCC) (HCC) (Primary Dx); PEG (percutaneous endoscopic gastrostomy) status (CMS/HCC) (HCC); Neurogenic orthostatic hypotension (HCC); History of stroke 06/15/2024 NH/SNF Visit [facility] Medical Group Post [address] [phone] Percy Collins MD Hyperlipidemia, unspecified hyperlipidemia type (Primary Dx); Neurogenic orthostatic hypotension (HCC); Type 2 diabetes mellitus without complication, with long-term current use of insulin (CMS/HCC) (HCC); PEG (percutaneous endoscopic gastrostomy) status (CMS/HCC) (HCC); Dysphagia as late effect of cerebrovascular accident (CVA) 06/10/2024 NH/SNF Visit [facility] Medical [facility] Post [facility] [address] [phone] Percy Collins MD Neurogenic orthostatic hypotension (HCC) (Primary Dx); PEG (percutaneous endoscopic gastrostomy) status (CMS/HCC) (HCC); Dysphagia as late effect of cerebrovascular accident (CVA); Hyperlipidemia, unspecified hyperlipidemia type; Type 2 diabetes mellitus without complication, with long-term current use of insulin (CMS/HCC) (HCC); History of stroke 06/09/2024 9:03 AM CLERICAL CLERK - 06/09/2024 11:59 PM CLERICAL CLERK Hospital Encounter [facility] [address] [place] [address] Dysphagia as late effect of cerebrovascular accident (CVA) Discharge Disposition: Discharge to home or self care 06/09/2024 1:30 PM CLERICAL CLERK Therapy [facility] OP Speech Therapy [address] [address] Oksana Lei SLP History of stroke (Primary Dx); Dysphagia as late effect of cerebrovascular accident (CVA); PEG (percutaneous endoscopic gastrostomy) status (CMS/HCC) (HCC) 06/08/2024 NH/SNF Visit [address] [phone] Pat Knight PA Type 2 diabetes mellitus without complication, with long-term current use of insulin (CMS/HCC) (HCC) (Primary Dx); Dysphagia as late effect of cerebrovascular accident (CVA); History of stroke; Neurogenic orthostatic hypotension (HCC) 06/06/2024 NH/SNF Visit [address] [phone] Percy Collins MD History of stroke (Primary Dx); Hyperlipidemia, unspecified hyperlipidemia type; Type 2 diabetes mellitus without complication, with long-term current use of insulin (CMS/HCC) (HCC); PEG (percutaneous endoscopic gastrostomy) status (CMS/HCC) (HCC); Dysphagia as late effect of cerebrovascular accident (CVA); Urinary retention; Smoker; Vitamin D deficiency; Benign prostatic hyperplasia, unspecified whether lower urinary tract symptoms present; Orthostatic hypotension; Slow transit constipation 06/04/2024 Orders Only [facility] Medical [facility]ists [address] [place] [phone] Tawny Batres, JENNIFER 06/04/2024 NH/SNF Visit [address] [phone] Pat Knight PA Dysphagia as late effect of cerebrovascular accident (CVA) (Primary Dx); Type 2 diabetes mellitus without complication, with long-term current use of insulin (CMS/HCC) (HCC); Neurogenic orthostatic hypotension (HCC) 06/03/2024 NH/SNF Visit [facility] Medical Group Post Acute Care [address] [phone] Tawny Batres NP History of stroke (Primary Dx); Urinary retention; Dysphagia as late effect of cerebrovascular accident (CVA); PEG (percutaneous endoscopic gastrostomy) status (CMS/HCC) (HCC); Neurogenic orthostatic hypotension (HCC); Type 2 diabetes mellitus without complication, unspecified whether [facility] insulin use (HCC) from Last 3 Months Allergies No known active allergies Medications acetaminophen (TYLENOL) 325 mg tablet Administer per tube 2 tablets (650 mg total) every 6 (six) hours as needed for pain Active metFORMIN (GLUCOPHAGE) 500 mg tablet Administer per tube 2 tablets (1,000 mg total) 2 (two) times a day with meals Active aspirin 81 mg enteric coated tablet Administer per tube 1 tablet (81 mg total) daily Active atorvastatin (LIPITOR) 80 mg tablet Administer per tube 1 tablet (80 mg total) daily Active clopidogreL (PLAVIX) 75 mg tablet Administer per tube 1 tablet (75 mg total) daily Active cholecalciferol 25 mcg (1,000 unit) tablet Administer per tube 1 tablet (1,000 Units total) daily Active finasteride (PROSCAR) 5 mg tablet Administer per tube 1 tablet (5 mg total) daily Active insulin glargine 100 unit/mL vial for injection Inject 30 Units under the skin nightly Active insulin aspart (NovoLOG) 100 unit/mL (3 mL) pen for injection Inject 2-10 Units under the skin 3 (three) times a day before meals Sliding scale Blood Glucose level - Units of Insulin/orders 150-199 = 2 units (call MD if less than 100) 200-249 = 4 units 250-299 = 6 units 300-349 = 8 units 350-399 = 10 units Call MD if > 400 Active multivitamin with iron tablet Administer per tube 1 tablet daily Active senna-docusate (PERICOLACE) 8.6-50 mg Take 2 tablets by mouth nightly Active midodrine (PROAMATINE) 2.5 mg tabletIndication s:Symptomatic Orthostatic Hypotension Take 1 tablet (2.5 mg total) by mouth 2 (two) times a day before breakfast and dinner 60 tablet Active Active Problems Problem Noted Date Diagnosed Date Pulmonary nodule 07/12/2024 Mild protein-calorie malnutrition (CMS/HCC) 06/23 Fall 07/08/2024 Hypotension 06/03/2024 Assessment & Plan (07/06/2024 11:09 AM CLERICAL CLERK): Hypotension has resolved, patient has not required use of midodrine. Midodrine discontinued. Continue to monitor Assessment & Plan (06/28/2024 1:34 PM CLERICAL CLERK): No further hypotensive episodes, patient denies dizziness with participation in therapy. Blood pressure was actually been higher. If this persists we will need to start an antihypertensive. Midodrine will remain on hold. Continue to monitor Assessment & Plan (06/23/2024 6:03 PM CLERICAL CLERK): Blood pressure has significantly improved. Midodrine has not been dosed due to hold parameters. We will place midodrine on hold. Monitor blood pressure Assessment & Plan (06/22/2024 9:07 AM CLERICAL CLERK): This is chronic but currently stable. We will continue midodrine 2.5 mg b.i.d.. Assessment & Plan (06/21/2024 6:18 PM CLERICAL CLERK): As patient's strength improves, blood pressure has rebounded. We will decrease midodrine to 2.5 mg b.i.d. with hold parameters in place. Assessment & Plan (06/20/2024 7:28 AM CLERICAL CLERK): This is chronic and currently stable. We will continue midodrine 10 mg b.i.d. Assessment & Plan (06/10/2024 2:44 PM CLERICAL CLERK): He had a witnessed episode of syncope or near-syncope that lasted less than 3 seconds. The staff was present. This was during his morning hygiene. There was no witnessed seizure activity. Afterwards his blood pressure and vital signs indicated a supine blood pressure 141/90 and a standing blood pressure 105/76. We will resume midodrine 10 mg at 8:00 a.m. and 10 mg at noon. We will observe for elevated resting blood pressure. Assessment & Plan (06/08/2024 11:56 AM CLERICAL CLERK): Blood pressure has rebounded, we will place midodrine on hold Assessment & Plan (06/04/2024 10:30 PM CLERICAL CLERK): Blood pressure so far well controlled, patient currently asymptomatic. Continue scheduled midodrine 10 mg t.i.d.. Patient has not displayed any hypertensive episodes. Hold parameters in place Assessment & Plan (06/03/2024 1:36 PM CLERICAL CLERK): BP stable, mildly elevated. Is on Midodrine q8h to be held with MAP>80 per Neurology. History of stroke 06/03/2024 Assessment & Plan (07/06/2024 11:12 AM CLERICAL CLERK): Remains weak but is slowly making improvements with strength and endurance. Continue aspirin, atorvastatin, Plavix, blood pressure management. Assessment & Plan (06/28/2024 1:36 PM CLERICAL CLERK): No new neurologic changes, dysphagia persists although has improved. Modified barium swallow was postponed until tomorrow. Continue post stroke prophylaxis with aspirin, atorvastatin, Plavix, blood pressure management. Assessment & Plan (06/21/2024 6:20 PM CLERICAL CLERK): Right-sided weakness and some dysphagia, slowly improving with therapy modalities. Pain is controlled. Continue post stroke prophylaxis with Plavix, aspirin, atorvastatin, blood pressure management Assessment & Plan (06/10/2024 2:58 PM CLERICAL CLERK): This is chronic and stable. Please continue aspirin 81 mg, atorvastatin, Plavix. Assessment & Plan (06/08/2024 11:55 AM CLERICAL CLERK): With persistent right-sided weakness. Patient is participating well in therapy and is slowly making progress with strength and endurance. Continue post stroke prophylaxis with aspirin, atorvastatin, Plavix, blood pressure control Assessment & Plan (06/06/2024 8:45 AM CLERICAL CLERK): I endorse admission to residential care. The patient is at risk of injury, illness and a requirement for a higher level of care without this service. The patient needs assistance from the nurses and care team for all activities of daily living including dressing, hygeine of person and toilet, safe transfer and mobility, dietary needs, medication administration, and grooming. The patient will need physical and occupational therapy to progress to a safer level of care. Assessment & Plan (06/03/2024 1:28 PM CLERICAL CLERK): L MCA stroke with residual effects of dysphagia & R-sided weakness. Continue ASA, Statin, BP & DM control. PT/OT/ST to assess. Dysphagia as late effect of cerebrovascular acci dent (CVA) 06/03/2024 Assessment & Plan (07/06/2024 11:11 AM CLERICAL CLERK): Patient was made significant progress with his swallow function. Last week was upgraded to pureed solids with nectar thickened liquids and has been attempting to advance with speech therapy. Has not required tube feed for nutrition, was started on ensure enlive with each meal Assessment & Plan (06/30/2024 11:34 PM CLERICAL CLERK): Patient had modified barium swallow performed 06/29/2024 with the following recommendations: Puree solids and [place] thick liquids (initially with CREW PERSON advancing to PO diet per treating CREW PERSON recommendations) Medication Administration: per tube Compensatory Strategies/Modifications: Sit upright at 90' during all oral intake, Small bites, Small sips, and Dry swallow 2-3 time(s) between bites/sips Spoke with house CREW PERSON, is hopeful to advanced quickly as patient seemed to do very well with his swallow study. We will continue current tube feeds for now with Glucerna 1.2 calories 360 cc 5 times daily. Hopeful that patient's p.o. intake will improve quickly and we will be able to reassess nutritional status and need for further tube feed. Assessment & Plan (06/23/2024 6:08 PM CLERICAL CLERK): Working with CREW PERSON - patient was making good progress, tolerating ice chips. CREW PERSON requesting to repeat modified barium swallow which will be performed in a.m.. Tolerating current tube feeds with Glucerna 1.2 heidi 360 cc 5 times per day followed by 30 cc water flushes Assessment & Plan (06/08/2024 11:54 AM CLERICAL CLERK): Patient is now tolerating tube feeds well without nausea, abdominal pain, emesis. He is working hard with speech therapy, CREW PERSON reports that he has been tolerating all trials of liquids and pudding/applesauce. We will order repeat modified barium swallow per CREW PERSON request Assessment & Plan (06/04/2024 10:23 PM CLERICAL CLERK): Adjustment in tube feeds have significantly reduced GI symptoms. Continue Glucerna 1.2 calorie boluses 360cc , 5 times per day followed by a 30 cc water flush after each feeding. Speech therapy will continue to follow, we will monitor for improved strength with swallow. Assessment & Plan (06/03/2024 1:35 PM CLERICAL CLERK): PEG in place with bolus feeds. Not tolerating bolus feeds well currently per nursing. Have reduced water flush to 30ml after feeding, continue bolus feeding 5x/d but nursing can run over pump. Will monitor. CREW PERSON to follow. Urinary retention 06/03/2024 Assessment & Plan (07/06/2024 11:11 AM CLERICAL CLERK): Resolved, continue finasteride Assessment & Plan (06/30/2024 11:34 PM CLERICAL CLERK): Patient continues to void well, we will continue finasteride Assessment & Plan (06/23/2024 6:09 PM CLERICAL CLERK): Patient has been voiding without difficulty using urinal. Continue finasteride 5 mg daily Assessment & Plan (06/03/2024 1:29 PM CLERICAL CLERK): Noted in hospital. Etiology unknown. Likely s/t neurogenic. Will have staff bladder scan & monitor for need for ISC. PEG (percutaneous endoscopic gastrostomy) status ([facility]) 06/03/2024 Assessment & Plan (06/22/2024 9:07 AM CLERICAL CLERK): We will continue tube feedings for nutrition. I appreciate the input from speech therapy and the dietitian. Smoker 01/06/2019 Type 2 diabetes mellitus 03/09/2017 Assessment & Plan (07/08/2024 5:31 PM CLERICAL CLERK): Pending ER evaluation, continue insulin aspart, insulin glargine, metformin. Assessment & Plan (07/06/2024 11:09 AM CLERICAL CLERK): A1c 7.6, Accu-Cheks well controlled with rare use sliding scale. Continue Lantus 30 units q.h.s., metformin 1000 mg b.i.d. Assessment & Plan (06/30/2024 11:29 PM CLERICAL CLERK): Accu-Cheks ranging from 114-220 with a hemoglobin A1c of 7.6. Continue Lantus 30 units q.h.s., metformin 1000 mg b.i.d., sliding scale insulin with meals Assessment & Plan (06/28/2024 1:36 PM CLERICAL CLERK): A1c 7.6, Accu-Cheks ranging from 111-209. Continue metformin 1000 mg b.i.d., Lantus 30 units q.h.s., sliding scale insulin with meals Assessment & Plan (06/22/2024 9:07 AM CLERICAL CLERK): This is chronic but currently stable. We will continue to monitor point of care glucose and labs. We will continue aspirin, atorvastatin, insulin aspart, insulin glargine, and metformin. Assessment & Plan (06/21/2024 6:20 PM CLERICAL CLERK): A1c 7.6, Accu-Cheks 144-223 continue Lantus 30 units q.h.s., metformin 1000 mg b.i.d., sliding scale insulin with meals Assessment & Plan (06/20/2024 7:28 AM CLERICAL CLERK): This is chronic and stable. We will continue insulin aspart and insulin glargine. We will continue scripting of metformin. We will follow point of care glucose. Assessment & Plan (06/10/2024 2:58 PM CLERICAL CLERK): This is chronic and stable. Please continue metformin Assessment & Plan (06/08/2024 11:53 AM CLERICAL CLERK): A1c 7.6, Accu-Cheks ranging from 177 to 303. We will increase metformin to 1000 mg b.i.d., continue Lantus 30 units q.h.s. with sliding scale insulin t.i.d. a.c. Assessment & Plan (06/04/2024 10:28 PM CLERICAL CLERK): A1c 7.6, blood sugars ranging from 140-310. Continue Lantus 30 units q.h.s., sliding scale insulin t.i.d., metformin 500 mg b.i.d.. If blood sugars remain elevated we will consider increasing metformin dose Assessment & Plan (06/03/2024 1:40 PM CLERICAL CLERK): A1c ordered in am. Continue insulin + Metformin currently & Monitor BS. Hyperlipidemia 03/09/2017 Assessment & Plan (07/08/2024 5:34 PM CLERICAL CLERK): Chronic, stable. Continue atorvastatin Assessment & Plan (06/20/2024 7:28 AM CLERICAL CLERK): This is chronic and stable. We will continue atorvastatin 80 mg daily Assessment & Plan (06/10/2024 2:57 PM CLERICAL CLERK): This is chronic and stable. Please continue atorvastatin Resolved Problems Problem Noted Date Diagnosed Date Resolved Date Syncope and collapse 07/08/2024 025 Assessment & Plan (07/08/2024 5:32 PM CLERICAL CLERK): He experienced an unwitnessed fall. The therapist found him sitting in an upright position beside his bed. At that time, he believed that he had lost his balance while standing up from the bed to look out the window at the snow. He was examined for injury and there were no focal findings of palpable tenderness, restricted motion, or angulation of his extremities. The nurses were asked to observe. Later of the same day, the same therapist called the nurse and this provider back to the room. She had noticed a staring like episode that lasted for several seconds. His roommate (a retired healthcare worker) noted that he had had several such episodes both before and since his fall. After evaluation he was transferred to the emergency room for further investigation and care. Social History Tobacco Use Types Packs/Day Years Used Date Smoking Tobacco: Light Smoker Smokeless Tobacco: Never Tobacco Cessation:Ready to Q uit: Not Asked; Counseling Given: Not Answered [facility] Decision Paceities Answer Date Recorded In the past 12 months has [employer], gas, oil, or water [employer] threatened to shut off services in your home? No 07/09/2024 Social Connection and Isolation Panel [NHANES] A nswer Date Recorded In a typical week, how many times do you talk on the phone with family, friends, or neighbors? Three times a week 07/09/2024 How often do you get togethe r with friends or relatives? Three times a week 07/09/2024 How often do you attend chur ch or yazidi services? Never 07/09/2024 Do you belong to any clubs o r organizations such as mandaen groups, unions, fraternal or athletic groups, or school groups? No 07/09/2024 How often do you attend meet ings of the clubs or organizations you belong to? Never 07/09/2024 Are you , , di vorced, , never , or living with a partner? Never 07/09/2024 Overall Financial Resource Strain (CARDIA) Answe r Date Recorded How hard is it for you to pa y for the very basics like food, housing, medical care, and heating? Not very hard 07/09/2024 Hunger Vital Sign Answer Date Recorded Within the past 12 months, y ou worried that your food would run out before you got the money to buy more. Never true 07/09/19 25 Within the past 12 months, t he food you bought just didn't last and you didn't have money to get more. Never true 07/09/2024 PRAPARE - Transportation Answer Date Re corded In the past 12 months, has l ack of transportation kept you from medical appointments or from getting medications? No 06/23 In the past 12 months, has l ack of transportation kept you from meetings, work, or from getting things needed for daily living? No 07/09/2024 Housing Stability Vital Sign Answer Jose e Recorded In the last 12 months, was t here a time when you were not able to pay the mortgage or rent on time? No 07/09/2024 In the past 12 months, how m any times have you moved where you were living? 0 07/09/2024 At any time in the past 12 m [facility], were you homeless or living in a intermediate (including now)? No 07/09/2024 Personal Safety Answer Date Recorded Have you ever been in or are you currently in a harmful physical or emotional relationship or is someone making you feel afraid or unsafe? 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 Not on file Not on libra e Last Filed Vital Signs Vital Sign Reading Time Taken Comments Blood Pressure 145/105 07/13/2024 11:04 AM CLERICAL CLERK Pulse 92 07/13/2024 11:04 AM CLERICAL CLERK Temperature 36.4 C (97.5 F) 07/13/2024 11:04 AM CLERICAL CLERK Respiratory Rate 18 07/13/2024 11:04 AM CLERICAL CLERK Oxygen Saturation 98% 07/13/2024 11:04 AM CLERICAL CLERK Inhaled Oxygen Concentration - - Weight 75.3 kg (166 lb 0.1 oz) 07/12/2024 5:00 A M CLERICAL CLERK Height 180.3 cm (5' 11 ) 07/08/2024 8:00 PM CLERICAL CLERK Body Mass Index 23.15 07/08/2024 8:00 PM CLERICAL CLERK Plan of Treatment Not on file Procedures Procedure Name Priority Date/Time Associated Diagnosis Comments POCT GLUCOSE DEVICE Routine 07/13/2024 12:00 PM CLERICAL CLERK POCT GLUCOSE DEVICE Routine 07/13/2024 8 :09 AM CLERICAL CLERK POCT GLUCOSE DEVICE Routine 07/12/2024 7 :48 PM CLERICAL CLERK POCT GLUCOSE DEVICE Routine 07/12/2024 4 :59 PM CLERICAL CLERK POCT GLUCOSE DEVICE Routine 07/12/2024 11:48 AM CLERICAL CLERK POCT GLUCOSE DEVICE Routine 07/12/2024 7 :39 AM CLERICAL CLERK POCT GLUCOSE DEVICE Routine 07/11/2024 8 :03 PM CLERICAL CLERK POCT GLUCOSE DEVICE Routine 07/11/2024 5 :26 PM CLERICAL CLERK POCT GLUCOSE DEVICE Routine 07/11/2024 1 :26 PM CLERICAL CLERK POCT GLUCOSE DEVICE Routine 07/11/2024 11:41 AM CLERICAL CLERK POCT GLUCOSE DEVICE Routine 07/11/2024 8 :04 AM CLERICAL CLERK POCT GLUCOSE DEVICE Routine 07/10/2024 7 :48 PM CLERICAL CLERK POCT GLUCOSE DEVICE Routine 07/10/2024 5 :34 PM CLERICAL CLERK POCT GLUCOSE DEVICE Routine 07/10/2024 1 :08 PM CLERICAL CLERK POCT GLUCOSE DEVICE Routine 07/10/2024 12:10 PM CLERICAL CLERK POCT GLUCOSE DEVICE Routine 07/10/2024 8 :04 AM CLERICAL CLERK POCT GLUCOSE DEVICE Routine 07/09/2024 8 :17 PM CLERICAL CLERK POCT GLUCOSE DEVICE Routine 07/09/2024 5 :18 PM CLERICAL CLERK CTA HEAD NECK W WO CONTRAST IP Routine 07/09/2024 3:57 PM CLERICAL CLERK POCT GLUCOSE DEVICE Routine 07/09/2024 1 :03 PM CLERICAL CLERK EEG Routine 07/09/2024 12:34 PM CLERICAL CLERK POCT GLUCOSE DEVICE Routine 07/09/2024 11:29 AM CLERICAL CLERK POCT GLUCOSE DEVICE Routine 07/09/2024 7 :40 AM CLERICAL CLERK EGFR Routine 07/09/2024 3:25 AM CLERICAL CLERK DIFFERENTIAL AUTO Routine 07/09/2024 3:2 5 AM CLERICAL CLERK BASIC METABOLIC PANEL Routine 07/09/2024 3:25 AM CLERICAL CLERK CBC WITH AUTO DIFFERENTIAL Routine 07/09/2024 3:25 AM CLERICAL CLERK POCT GLUCOSE DEVICE Routine 07/08/2024 8 :10 PM CLERICAL CLERK SEPSIS LACTATE WITH REFLEX Timed 07/08/2024 8:03 PM CLERICAL CLERK TROPONIN T HIGH-SENSITIVITY 6-HOUR Timed 07/08/2024 8:03 PM CLERICAL CLERK TROPONIN T HIGH-SENSITIVITY 4-HR Timed 07/08/2024 5:59 PM CLERICAL CLERK URINALYSIS, MICROSCOPIC ONLY STAT 07/08/2024 4:20 PM CLERICAL CLERK URINE CULTURE STAT 07/08/2024 4:20 PM CLERICAL CLERK URINALYSIS AND REFLEX TO MICROSCOPIC AND CULTURE STAT 07/08/2024 4:20 PM CLERICAL CLERK SEPSIS LACTATE WITH REFLEX Timed 07/08/2024 4:19 PM CLERICAL CLERK TROPONIN T HIGH-SENSITIVITY 2-HOUR Timed 07/08/2024 3:36 PM CLERICAL CLERK PROTIME-INR STAT 07/08/2024 1:34 PM CLERICAL CLERK SEPSIS LACTATE WITH REFLEX STAT 07/08/2024 1:[address] HEAD WO CONTRAST ED 07/08/2024 1 :31 PM CLERICAL CLERK XR CHEST 1 VIEW ED 07/08/2024 1:30 PM CLERICAL CLERK EGFR STAT 07/08/2024 1:04 PM CLERICAL CLERK DIFFERENTIAL AUTO STAT 07/08/2024 1:0 4 PM CLERICAL CLERK TROPONIN T HIGH-SENSITIVITY SERIES (BASELINE, 2HR, 4HR, 6HR) STAT 07/08/2024 1:04 PM CLERICAL CLERK COMPREHENSIVE METABOLIC PANEL STAT 07/08/2024 1:04 PM CLERICAL CLERK CBC WITH AUTO DIFFERENTIAL STAT 07/08/2024 1:04 PM CLERICAL CLERK ECG 12-LEAD STAT 07/08/2024 12:50 PM CLERICAL CLERK EGFR Routine 06/30/2024 5:40 AM CLERICAL CLERK COMPREHENSIVE METABOLIC PANEL Routine 06/30/2024 5:40 AM CLERICAL CLERK CBC WITHOUT DIFFERENTIAL Routine 06/30/2024 5:40 AM CLERICAL CLERK FL MODIFIED BARIUM SWALLOW W VIDEO Schedule Routine, Read Routine (OP Routine) 06/29/2024 2:01 PM CLERICAL CLERK Dysphagia as late effect of cerebrovascular accident (CVA) CBC WITHOUT DIFFERENTIAL Routine 06/14/2024 5:44 AM CLERICAL CLERK FL MODIFIED BARIUM SWALLOW W VIDEO Schedule Routine, Read Routine (OP Routine) 06/09/2024 2:28 PM CLERICAL CLERK Dysphagia as late effect of cerebrovascular accident (CVA) EGFR Routine 06/08/2024 8:31 AM CLERICAL CLERK COMPREHENSIVE METABOLIC PANEL Routine 06/08/2024 8:31 AM CLERICAL CLERK CBC WITHOUT DIFFERENTIAL Routine 06/08/2024 8:31 AM CLERICAL CLERK EGFR Routine 06/04/2024 4:21 PM CLERICAL CLERK COMPREHENSIVE METABOLIC PANEL Routine 06/04/2024 4:21 PM CLERICAL CLERK MAGNESIUM Routine 06/04/2024 4:21 PM CLERICAL CLERK PHOSPHORUS Routine 06/04/2024 4:21 PM CLERICAL CLERK HEMOGLOBIN A1C Routine 06/04/2024 4:21 PM CLERICAL CLERK CBC WITHOUT DIFFERENTIAL Routine 06/04/2024 4:21 PM CLERICAL CLERK from Last 3 Months Results * POCT glucose (07/13/2024 12:00 PM CLERICAL CLERK) Glucose, POC 172 70 - 199 mg/dL Glucose comment 1 Use This Result [facility] Blood 07/13/2024 12:0 0 PM CLERICAL CLERK 07/13/2024 12:00 PM CLERICAL CLERK us Vignesh Lopez MD LAB POCT ORDERABLES - DEV ICE Final Result [facility] [address] [facility] Department [place] [address] * (ABNORMAL) POCT glucose (07/13/2024 8:09 AM CLERICAL CLERK) Glucose, POC 213(H) 70 - 199 mg/dL Glucose comment 1 Use This Result [facility] Glucose comment 2 RN/MD Notified K[facility]L Blood 07/13/2024 8:09 AM CLERICAL CLERK 07/13/2024 8:09 AM CLERICAL CLERK Result [facility] Vignesh Lopez MD LAB POCT ORDERABLES - DEV ICE Final Result Performing Organization Address [facility] de Phone Number [address] Here@ [place] [address] * (ABNORMAL) POCT glucose (07/12/2024 7:48 PM CLERICAL CLERK) Glucose, POC 326(H) 70 - 199 mg/dL Glucose comment 1 Use This Result [facility] Glucose comment 2 RN/MD Notified [facility] Blood 07/12/2024 7:48 PM CLERICAL CLERK 07/12/2024 7:48 PM CLERICAL CLERK Result [facility] Leilani Resendiz MD LAB POCT ORDERABLES - DEVICE Fin al Result Performing Organization Address [facility] de Phone Number [address] Here@ [place] [address] * (ABNORMAL) POCT glucose (07/12/2024 4:59 PM CLERICAL CLERK) Glucose, POC 217(H) 70 - 199 mg/dL Blood 07/12/2024 4:59 PM CLERICAL CLERK 07/12/2024 4:59 PM CLERICAL CLERK Result [facility] Leilani Resendiz MD LAB POCT ORDERABLES - DEVICE Fin al Result Performing Organization Address [facility] de Phone Number [address] Here@ [place] [address] * (ABNORMAL) POCT glucose (07/12/2024 11:48 AM CLERICAL CLERK) Glucose, POC 317(H) 70 - 199 mg/dL Blood 07/12/2024 11:4 8 AM CLERICAL CLERK 07/12/2024 11:48 AM CLERICAL CLERK Leilani Resendiz MD LAB POCT ORDERABLES - DEVICE Fin al Result Performing Organization Address [facility] Co de Phone Number KARL [address] Here@ [place] [address] * (ABNORMAL) POCT glucose (07/12/2024 7:39 AM CLERICAL CLERK) Glucose, POC 224(H) 70 - 199 mg/dL Blood 07/12/2024 7:39 AM CLERICAL CLERK 07/12/2024 7:39 AM CLERICAL CLERK Leilani Resendiz MD LAB POCT ORDERABLES - DEVICE Fin al Result Performing Organization Address [facility] de Phone Number [address] [address] * (ABNORMAL) POCT glucose (07/11/2024 8:03 PM CLERICAL CLERK) Glucose, POC 326(H) 70 - 199 mg/dL Glucose comment 1 Use This Result [facility] Blood 07/11/2024 8:03 PM CLERICAL CLERK 07/11/2024 8:03 PM CLERICAL CLERK Leilani Resendiz MD LAB POCT ORDERABLES - DEVICE Fin al Result Performing Organization Address [facility] Co de Phone Number [address] Here@ [place] [address] * (ABNORMAL) POCT glucose (07/11/2024 5:26 PM CLERICAL CLERK) Glucose, POC 325(H) 70 - 199 mg/dL Blood 07/11/2024 5:26 PM CLERICAL CLERK 07/11/2024 5:26 PM CLERICAL CLERK Leilani Resendiz MD LAB POCT ORDERABLES - DEVICE Fin al Result Performing Organization Address [facility] Co de Phone Number [address] Here@ [place] [address] * (ABNORMAL) POCT glucose (07/11/2024 1:26 PM CLERICAL CLERK) Glucose, POC 283(H) 70 - 199 mg/dL Blood 07/11/2024 1:26 PM CLERICAL CLERK 07/11/2024 1:26 PM CLERICAL CLERK Leilani Resendiz MD LAB POCT ORDERABLES - DEVICE Fin al Result Performing Organization Address [facility] de Phone Number [address] [address] * (ABNORMAL) POCT glucose (07/11/2024 11:41 AM CLERICAL CLERK) Glucose, POC 366(H) 70 - 199 mg/dL Glucose comment 1 Use This Result [facility] Glucose comment 2 RN/MD Notified [facility] Blood 07/11/2024 11:4 1 AM CLERICAL CLERK 07/11/2024 11:41 AM CLERICAL CLERK Leilani Resendiz MD LAB POCT ORDERABLES - DEVICE Fin al Result Performing Organization Address [facility] de Phone Number [address] [address] * (ABNORMAL) POCT glucose (07/11/2024 8:04 AM CLERICAL CLERK) Glucose, POC 264(H) 70 - 199 mg/dL Blood 07/11/2024 8:04 AM CLERICAL CLERK 07/11/2024 8:04 AM CLERICAL CLERK Leilani Resendiz MD LAB POCT ORDERABLES - DEVICE Fin al Result Performing Organization Address [facility] de Phone Number [address] [address] * (ABNORMAL) POCT glucose (07/10/2024 7:48 PM CLERICAL CLERK) Glucose, POC 281(H) 70 - 199 mg/dL Glucose comment 1 Use This Result [facility] Blood 07/10/2024 7:48 PM CLERICAL CLERK 07/10/2024 7:48 PM CLERICAL CLERK us Leilani Resendiz MD LAB POCT ORDERABLES - DEVICE Fin al Result Performing Organization Address [facility] Co de Phone Number KARL [address] Here@ [place] [address] * (ABNORMAL) POCT glucose (07/10/2024 5:34 PM CLERICAL CLERK) Glucose, POC 366(H) 70 - 199 mg/dL Blood 07/10/2024 5:34 PM CLERICAL CLERK 07/10/2024 5:34 PM CLERICAL CLERK Leilani Resendiz MD LAB POCT ORDERABLES - DEVICE Fin al Result Performing Organization Address [facility] de Phone Number [address] Here@ [place] [address] * (ABNORMAL) POCT glucose (07/10/2024 1:08 PM CLERICAL CLERK) Glucose, POC 294(H) 70 - 199 mg/dL Blood 07/10/2024 1:08 PM CLERICAL CLERK 07/10/2024 1:08 PM CLERICAL CLERK us Leilani Resendiz MD LAB POCT ORDERABLES - DEVICE Fin al Result Performing Organization Address [facility] de Phone Number [address] Here@ [place] [address] * (ABNORMAL) POCT glucose (07/10/2024 12:10 PM CLERICAL CLERK) Glucose, POC 332(H) 70 - 199 mg/dL Glucose comment 1 RN/MD Notified [facility] Blood 07/10/2024 12:1 0 PM CLERICAL CLERK 07/10/2024 12:10 PM CLERICAL CLERK Result [facility] us Leilani Resendiz MD LAB POCT ORDERABLES - DEVICE Fin al Result Performing Organization Address [facility] Co de Phone Number [address] Here@ [place] [address] * (ABNORMAL) POCT glucose (07/10/2024 8:04 AM CLERICAL CLERK) Glucose, POC 269(H) 70 - 199 mg/dL Blood 07/10/2024 8:04 AM CLERICAL CLERK 07/10/2024 8:04 AM CLERICAL CLERK Leilani Resendiz MD LAB POCT ORDERABLES - DEVICE Fin al Result Performing Organization Address [facility] Co de Phone Number KARL [address] Here@ [place] [address] * (ABNORMAL) POCT glucose (07/09/2024 8:17 PM CLERICAL CLERK) Glucose, POC 387(H) 70 - 199 mg/dL Blood 07/09/2024 8:17 PM CLERICAL CLERK 07/09/2024 8:17 PM CLERICAL CLERK Leilani Resendiz MD LAB POCT ORDERABLES - DEVICE Fin al Result Performing Organization Address [facility] Co de Phone Number [address] [address] * (ABNORMAL) POCT glucose (07/09/2024 5:18 PM CLERICAL CLERK) Glucose, POC 275(H) 70 - 199 mg/dL Glucose comment 1 Use This Result [facility] Blood 07/09/2024 5:18 PM CLERICAL CLERK 07/09/2024 5:18 PM CLERICAL CLERK Leilani Resendiz MD LAB POCT ORDERABLES - DEVICE Fin al Result Performing Organization Address [facility] Co de Phone Number [address] Here@ [place] [address] * CTA Head Neck W WO Contrast (07/09/2024 3:57 PM CLERICAL CLERK) Anatomical Region Laterality Modality Head and Neck N/A Computed Tomogra phy 07/09/2024 4:24 PM CLERICAL CLERK Narrative 07/09/2024 8:21 PM CLERICAL CLERK EXAM DESCRIPTION: CTA HEAD NECK W WO CONTRAST REASON FOR STUDY: Stroke/TIA, determine embolic source, prior CVA, now w possible syncopal episode with staring spells Stroke/TIA, determine embolic source, prior CVA, now w possible syncopal episode with staring spells TECHNIQUE: Axial images were first obtained through the brain without contrast. Axial dynamic scanning technique with dynamic contrast enhancement through the intracranial and extracranial carotid and vertebral arteries. Multiplanar reconstruction. All stenosis measurements are based on NASCET criteria. 3D MIP images rendered on scanning unit and reviewed at time of interpretation. Automated exposure control was used as a dose optimization technique for this examination. CONTRAST TYPE/DOSE: 100mL of IOVERSOL 350 MG IODINE/ML INTRAVENOUS SYRINGE injected via intravenous COMPARISON: Head CT 07/08/2024. FINDINGS: BRAIN CEREBRUM: No acute infarction or hemorrhage. Stable old infarcts in border zone regions of the anterior and middle cerebral arteries primarily affecting the paramidline frontal lobes and white matter. No new or acute abnormality on today's head CT. WHITE MATTER: Border zone infarcts as above. Lacunar infarcts of periventricular white matter. Old lacunar infarct of left anterior limb internal capsule. POSTERIOR FOSSA: Small old lacunar infarct of the left meek. Brainstem and cerebellum otherwise appear unremarkable. EXTRA-AXIAL SPACES: No fluid collections. No masses. ORBITS: Postop changes of the right lens partly visualized. CALVARIUM: No fracture. SINUSES/MASTOIDS: No fluid or mucosal thickening. OTHER: No other significant abnormality. INTRACRANIAL VESSELS ALTURAS OF BATRES: The cervical internal carotid arteries are occluded bilaterally. There is faint reconstitution of the left internal carotid artery likely retrograde through the external carotid artery collaterals which supply a atretic cervical ICA to the skull base and cavernous carotid artery. This contributes to flow of the bilateral anterior and middle cerebral arteries with cross-filling through anterior communicating artery segment however there also appears to be marked leptomeningeal collateralization of intracranial vasculature bilaterally. The flow to the right and left MCA vasculature is not well delineated given overall low flow state. Within limitation, no definable aneurysm. No evidence of aneurysm or focal stenosis. POSTERIOR CIRCULATION: Reconstitution of the distal right vertebral artery likely from muscular branches at the foramen magnum. Both intracranial vertebral arteries demonstrate normal contrast enhancement. Normal supply to the basilar artery and posterior cerebral arteries is evident bilaterally. BRAIN: No gross enhancing lesions as visualized. CAROTID CTA RIGHT CAROTIDS: The right internal carotid artery is occluded roughly 1-2 cm from its origin at the innominate trunk. No significant reconstitution is evident. There is faint cross-filling of flow to the right anterior and middle cerebral arteries from the anterior communicating artery segment supplied by the external carotid artery collaterals on the left. LEFT CAROTIDS: The left carotid artery is occluded roughly 2 cm from its origin from the aortic arch. There is trace reconstitution of the left internal carotid artery likely due to facial collaterals through the external carotid artery.. LEFT VERTEBRAL: Patent. This is the dominant vessel. No significant stenosis. No dissection. RIGHT VERTEBRAL: Right vertebral artery is occluded throughout its cervical course. There may be some reconstitution distally from muscular branches at the skull base.. AORTIC ARCH: Normal three-vessel origin. Bilateral subclavian arteries are patent. No dissection. NECK SOFT TISSUE: No mass, adenopathy. No thyroid nodule greater than 1 cm. INCLUDED LUNGS: Irregular 7 mm nodule in the right upper lobe adjacent to minor fissure. This is new from chest CT dated 09/26/2022. Three-month follow-up chest CT is suggested. OTHER: Marked abnormality of the cervical spine with severe erosive appearing facet arthropathy and anterolisthesis of C3 on 4. There are postoperative changes of decompression of the posterior spinal canal. Dedicated cervical CT imaging correlation may be considered. IMPRESSION: BRAIN: No acute abnormalities. Multiple old infarcts in border zone regions. INTRACRANIAL CTA: Occlusion of the internal carotid arteries bilaterally with cross-filling of the anterior and middle cerebral arteries from the external carotid arteries through anterior communicating artery segment. There is also marked leptomeningeal collateralization of the intracranial vasculature. Within limitation, no definable aneurysm or other vascular abnormality. CAROTID CTA: Occlusion of the internal carotid arteries bilaterally roughly 2 cm from the aortic arch. Faint reconstitution of the left internal carotid artery at the carotid bifurcation likely due to retrograde flow through facial collaterals and muscular collaterals of the left external carotid artery. This reconstituted vessel does extend through skull base and supplies cavernous ICA with cross-filling to right-side intracranial vasculature. Not well delineated but partly visualized on this exam is extensive leptomeningeal, scalp, and other skull base collateralization of the intracranial vasculature. Occlusion of the right vertebral artery throughout its cervical course with some reconstitution distally from muscular branches at the skull base. Patent dominant left vertebral artery. New 7 mm nodule in the right upper lung field adjacent to the minor fissure. Per Fleischner Society Guidelines, follow-up CT of the complete chest after an appropriate interval (312 months depending on clinical risk) to confirm stability and to evaluate additional findings. Severe abnormality of the cervical spine with postoperative changes of the posterior spinal canal. Dedicated cervical CT imaging may be considered. THIS IS AN ELECTRONICALLY VERIFIED FINAL REPORT 07/09/2024 8:21 PM - Electronically signed by Sanjuanita Cleveland M.D. LC T: Report ID: [id number] Reading Location: [id number] Procedure Note Colette Cleveland MD - 07/09/2024 EXAM DESCRIPTION: CTA HEAD NECK W WO CONTRAST REASON FOR STUDY: Stroke/TIA, determine embolic source, prior CVA, now w possible syncopal episode with staring spells Stroke/TIA, determine embolic source, prior CVA, now w possible syncopal episode with staring spells TECHNIQUE: Axial images were first obtained through the brain without contrast. Axial dynamic scanning technique with dynamic contrast enhancement throughthe intracranial and extracranial carotid and vertebral arteries. Multiplanar reconstruction. All stenosis measurements are based on NASCET criteria. 3D MIP images rendered on scanning unit and reviewed at time of interpretation. Automated exposure control was used as a dose optimization technique forthis examination. CONTRAST TYPE/DOSE: 100mL of IOVERSOL 350 MG IODINE/ML INTRAVENOUSSYRINGE injected via intravenous COMPARISON: Head CT 07/08/2024. FINDINGS: BRAIN CEREBRUM: No acute infarction or hemorrhage. Stable old infarcts inborder zone regions of the anterior and middle cerebral arteries primarilyaffecting the paramidline frontal lobes and white matter. No new or acuteabnormality on today's head CT. WHITE MATTER: Border zone infarcts as above. Lacunar infarcts of periventricular white matter. Old lacunar infarct of left anterior limb internal capsule. POSTERIOR FOSSA: Small old lacunar infarct of the left meek. Brainstemand cerebellum otherwise appear unremarkable. EXTRA-AXIAL SPACES: No fluid collections. No masses. ORBITS: Postop changes of the right lens partly visualized. CALVARIUM: No fracture. SINUSES/MASTOIDS: No fluid or mucosal thickening. OTHER: No other significant abnormality. INTRACRANIAL VESSELS ALTURAS OF BATRES: The cervical internal carotid arteries are occluded bilaterally. There is faint reconstitution of the left internal carotid artery likely retrograde through the external carotid artery collateralswhich supply a atretic cervical ICA to the skull base and cavernous carotidartery. This contributes to flow of the bilateral anterior and middle cerebral arteries with cross-filling through anterior communicating artery segment however there also appears to be marked leptomeningeal collateralizationof intracranial vasculature bilaterally. The flow to the right and left MCA vasculature is not well delineated given overall low flow state. Within limitation, no definable aneurysm. No evidence of aneurysm or focalstenosis. POSTERIOR CIRCULATION: Reconstitution of the distal right vertebralartery likely from muscular branches at the foramen magnum. Both intracranial vertebral arteries demonstrate normal contrast enhancement. Normal supplyto the basilar artery and posterior cerebral arteries is evident bilaterally. BRAIN: No gross enhancing lesions as visualized. CAROTID CTA RIGHT CAROTIDS: The right internal carotid artery is occluded roughly1-2 cm from its origin at the innominate trunk. No significant reconstitution is evident. There is faint cross-filling of flow to the right anterior and middle cerebral arteries from the anterior communicating artery segment supplied by the external carotid artery collaterals on the left. LEFT CAROTIDS: The left carotid artery is occluded roughly 2 cm from its origin from the aortic arch. There is trace reconstitution of the left internal carotid artery likely due to facial collaterals through theexternal carotid artery.. LEFT VERTEBRAL: Patent. This is the dominant vessel. No significant stenosis. No dissection. RIGHT VERTEBRAL: Right vertebral artery is occluded throughout itscervical course. There may be some reconstitution distally from muscular branchesat the skull base.. AORTIC ARCH: Normal three-vessel origin. Bilateral subclavian arteriesare patent. No dissection. NECK SOFT TISSUE: No mass, adenopathy. No thyroid nodule greater than 1cm. INCLUDED LUNGS: Irregular 7 mm nodule in the right upper lobe adjacentto minor fissure. This is new from chest CT dated 09/26/2022. Three-month follow-up chest CT is suggested. OTHER: Marked abnormality of the cervical spine with severe erosive appearing facet arthropathy and anterolisthesis of C3 on 4. There are postoperative changes of decompression of the posterior spinal canal. Dedicated cervical CT imaging correlation may be considered. IMPRESSION: BRAIN: No acute abnormalities. Multiple old infarcts in border zone regions. INTRACRANIAL CTA: Occlusion of the internal carotid arteries bilaterally with cross-fillingof the anterior and middle cerebral arteries from the external carotidarteries through anterior communicating artery segment. There is also marked leptomeningeal collateralization of the intracranial vasculature. Within limitation, no definable aneurysm or other vascular abnormality. CAROTID CTA: Occlusion of the internal carotid arteries bilaterally roughly 2 cm fromthe aortic arch. Faint reconstitution of the left internal carotid artery atthe carotid bifurcation likely due to retrograde flow through facialcollaterals and muscular collaterals of the left external carotid artery. This reconstituted vessel does extend through skull base and supplies cavernousICA with cross-filling to right-side intracranial vasculature. Not well delineated but partly visualized on this exam is extensive leptomeningeal, scalp, and other skull base collateralization of the intracranialvasculature. Occlusion of the right vertebral artery throughout its cervical coursewith some reconstitution distally from muscular branches at the skull base. Patent dominant left vertebral artery. New 7 mm nodule in the right upper lung field adjacent to the minorfissure. Per Fleischner Society Guidelines, follow-up CT of the complete chestafter an appropriate interval (312 months depending on clinical risk) to confirm stability and to evaluate additional findings. Severe abnormality of the cervical spine with postoperative changes ofthe posterior spinal canal. Dedicated cervical CT imaging may be considered. THIS IS AN ELECTRONICALLY VERIFIED FINAL REPORT 07/09/2024 8:21 PM - Electronically signed by Sanjuanita Cleveland M.D. T: Report ID: [id number] Reading Location: [id number] Leilani Resendiz MD IMG CT PROCEDURES Final Result * (ABNORMAL) POCT glucose (07/09/2024 1:03 PM CLERICAL CLERK) Glucose, POC 215(H) 70 - 199 mg/dL Glucose comment 1 Use This Result KARL Blood 07/09/2024 1:03 PM CLERICAL CLERK 07/09/2024 1:03 PM CLERICAL CLERK Leilani Resendiz MD LAB POCT ORDERABLES - DEVICE Fin al Result Performing Organization Address City/State/[facility] Co de Phone Number KARL [address] [facility] Department of Here@ [place] [address] * EEG (07/09/2024 12:34 PM CLERICAL CLERK) Anatomical Region Laterality Modality Other Narrative 07/09/2024 12:46 PM CLERICAL CLERK Hilario Gilmore MD 07/09/2024 12:46 PM Reason for exam: Staring spells Technical: This is a digitally recorded electroencephalogram. It was just over 27 minutes long. The international 10-20 electrode placement system is used for scalp electrode placement. Eighteen channels of scalp EEG are recorded. One channel was used for EOG. Another channel was used for ECG. The data are stored digitally and reviewed in reformatted montages for optimal display. Background: 8-9 hertz alpha activity was seen. Maximal over the posterior head region. These activities are symmetric on both sides. They attenuated with eye opening. Description: No focal slowing was seen. No seizure like activity was observed during this recording. Patient entered into periods of drowsiness and light sleep. Hyperventilation was not performed due to patient's clinical condition. Photic stimulation was performed without any additional abnormalities. Impression: Normal EEG. No focal slowing no seizure like activity was observed. Correlation with clinical findings is needed. us Leilani Resendiz MD NEUROLOGY ORDERABLES Final Resul t * (ABNORMAL) POCT glucose (07/09/2024 11:29 AM CLERICAL CLERK) Glucose, POC 284(H) 70 - 199 mg/dL Glucose comment 1 Use This Result KARL Blood 07/09/2024 11:2 9 AM CLERICAL CLERK 07/09/2024 11:29 AM CLERICAL CLERK us Leilani Resendiz MD LAB POCT ORDERABLES - DEVICE Fin al Result Performing Organization Address [facility] Co de Phone Number KARL [address] [facility] Department of Here@ [place] [address] * POCT glucose (07/09/2024 7:40 AM CLERICAL CLERK) Glucose, POC 147 70 - 199 mg/dL Glucose comment 1 Use This Result KRYSTALKEVIN Blood 07/09/2024 7:40 AM CLERICAL CLERK 07/09/2024 7:40 AM CLERICAL CLERK Leilani Resendiz MD LAB POCT ORDERABLES - DEVICE Fin al Result Performing Organization Address [facility] Co de Phone Number [address] Here@ [place] [address] * eGFR (07/09/2024 3:25 AM CLERICAL CLERK) eGFR >90 >=60 mL/min/1. 73 m2 Comment: Interpretive Data Reference Interval Normal >/= 90 mL/min/1.73m2 Mildly decreased* 60 - 89 mL/min/1.73m2 Mildly to moderately decreased 45 - 59 mL/min/1.73m2 Moderately to severely decreased 30 - 44 mL/min/1.73m2 Severely decreased 15 - 29 mL/min/1.73m2 Kidney Failure < 15 mL/min/1.73m2 *Relative to young adult level Estimated glomerular filtration rate is determined by the 2020 CKD-EPI equation recommended by the National Kidney Foundation (A Unifying Approach to GFR Estimation: Recommendations of the NKF-ASK Task Force on Reassessing the Inclusion of Race in Diagnosing Kidney Disease, JASN 2020). The CKD-EPI equation should not be used for patients with unstable renal function and has not been validated in children and those over 70. Current interpretive data was last reviewed 2021. Blood 07/09/2024 3:25 AM CLERICAL CLERK 07/09/2024 3:29 AM CLERICAL CLERK Leilani Resendiz MD LAB BLOOD ORDERABLES Final Resul t Performing Organization Address [facility] Co de Phone Number [address] Here@ [place] [address] * (ABNORMAL) Differential, auto (07/09/2024 3:25 AM CLERICAL CLERK) Neutrophil abs 5.5 1.5 - 6.5 K/cumm Imm gran abs 0.0 0.0 - 0.1 K/cumm [facility] Lymphocyte abs 1.6 0.8 - 3.3 K/cumm [facility] Monocyte abs 0.9(H) 0.2 - 0.8 K/cumm [facility] Eosinophil abs 0.3 0.0 - 0.5 K/cumm [facility] Basophil abs 0.1 0.0 - 0.1 K/cumm [facility] Neutrophil pct 65.0 % [facility] Comment: Interpretive Data Percent cell count reference ranges are not reported, since discordance with absolute values may lead to misinterpretation of CBC data. Current Interpretive Data was last revised on 2017. Imm gran pct 0.5 % [facility] Comment: Interpretive Data Percent cell count reference ranges are not reported, since discordance with absolute values may lead to misinterpretation of CBC data. Current Interpretive Data was last revised on 2017. Lymphocyte pct 18.4 % [facility] Comment: Interpretive Data Percent cell count reference ranges are not reported, since discordance with absolute values may lead to misinterpretation of CBC data. Current Interpretive Data was last revised on 2017. Monocyte pct 11.1 % [facility] Comment: Interpretive Data Percent cell count reference ranges are not reported, since discordance with absolute values may lead to misinterpretation of CBC data. Current Interpretive Data was last revised on 2017. Eosinophil pct 3.8 % [facility] Comment: Interpretive Data Percent cell count reference ranges are not reported, since discordance with absolute values may lead to misinterpretation of CBC data. Current Interpretive Data was last revised on 2017. Basophil pct 1.2 % [facility] Comment: Interpretive Data Percent cell count reference ranges are not reported, since discordance with absolute values may lead to misinterpretation of CBC data. Current Interpretive Data was last revised on 2017. Blood 07/09/2024 3:25 AM CLERICAL CLERK 07/09/2024 3:29 AM CLERICAL CLERK us Leilani Resendiz MD LAB BLOOD ORDERABLES Final Resul t [facility] [address] [facility] [place] [address] * (ABNORMAL) CBC with auto differential (07/09/2024 3:25 AM CLERICAL CLERK) [facility] WBC 8.5 3.8 - 9.9 K/cumm Hgb 14.1 13.0 - 17.5 g/dL [facility] Hct 43.7 38.9 - 50.3 % [facility] Plt 214 150 - 400 K/cumm [facility] MPV 11.7 9.1 - 12.3 fL [facility] RBC 4.59 4.30 - 5.80 M/cumm [facility] MCV 95.2 81.3 - 96.4 fL [facility] MCH 30.7 27.1 - 33.3 pg [facility] MCHC 32.3 32.3 - 35.7 g/dL [facility] RDW CV 13.9 11.1 - 14.9 % [facility] RDW SD 48.3(H) 35.7 - 48.1 fL [facility] NRBC abs 0.00 0.00 - 0.01 K/cumm [facility] Blood 07/09/2024 3:25 AM CLERICAL CLERK 07/09/2024 3:29 AM CLERICAL CLERK us Leilani Resendiz MD LAB BLOOD ORDERABLES Final Resul t [facility] [address] [facility] [place] [address] * Basic metabolic panel (07/09/2024 3:25 AM CLERICAL CLERK) [facility] Sodium 138 135 - 145 mmol/L Potassium, pl 4.1 3.3 - 4.9 mmol/L [facility] Chloride 102 97 - 110 mmol/L [facility] CO2 26 22 - 32 mmol/L [facility] Anion gap 10 2 - 15 mmol/L [facility] BUN 14 6 - 25 mg/dL [facility] Creatinine 0.81 0.80 - 1.30 mg/dL [facility] Glucose 152 70 - 199 mg/dL [facility] Comment: Interpretive Data Fasting glucose >/= 126 mg/dl is diagnostic for diabetes. Fasting is defined as no caloric intake for at least 8 hours. Fasting glucose between 100 mg/dl to 125 mg/dl is diagnostic of prediabetes. In a patient with classic symptoms of hyperglycemia or hyperglycemic crisis, a random glucose >/= 200 mg/dl is diagnostic for diabetes. In the absence of unequivocal hyperglycemia, results should be confirmed by repeat testing. The classification and Diagnosis of Diabetes Diabetes Care 202; 46: S19-S40. Current interpretive data was last revised 2022. Calcium 9.8 8.5 - 10.3 mg/dL [facility] Blood 07/09/2024 3:25 AM CLERICAL CLERK 07/09/2024 3:29 AM CLERICAL CLERK Result [facility] Leilani Resendiz MD LAB BLOOD ORDERABLES Final Resul t Performing Organization Address City/[facility]/ZIP Co de Phone Number [address] [place] [address] * POCT glucose (07/08/2024 8:10 PM CLERICAL CLERK) Glucose, POC 96 70 - 199 mg/dL Glucose comment 1 RN/MD Notified [facility] Blood 07/08/2024 8:10 PM CLERICAL CLERK 07/08/2024 8:10 PM CLERICAL CLERK Result [facility] Leilani Resendiz MD LAB POCT ORDERABLES - DEVICE Fin al Result Performing Organization Address [facility] Co de Phone Number [address] Here@ [place] [address] * Troponin T high-sensitivity 6-hour (07/08/2024 8:03 PM CLERICAL CLERK) Trop T hs 13 <=22 ng/L Comment: Interpretive Data For further hscTnT resources including the diagnostic algorithm and an aid in interpretation, copy and paste this link: https://nrl.testcatalog.org/show/hsTrop Current Interpretive Data last revised 2020. Trop T hs delta -3 ng/L [facility] Trop T hs interp Insignificant [facility] Blood 07/08/2024 8:03 PM CLERICAL CLERK 07/08/2024 8:07 PM CLERICAL CLERK Lorraine Dumont MD LAB BLOOD ORDERABLES Final Resu lt Performing Organization Address [facility] de Phone Number KARL [address] Here@ [place] [address] * Sepsis Lactate w/ Reflex (07/08/2024 8:03 PM CLERICAL CLERK) [facility] Sepsis Lactate 1.4 0.7 - 2.0 mmol/L Blood 07/08/2024 8:03 PM CLERICAL CLERK 07/08/2024 8:07 PM CLERICAL CLERK Lizet Sotelo MD LAB BLOOD ORDERABLES F inal Result Performing Organization Address [facility] de Phone Number [address]RY[address] [address] * Troponin T high-sensitivity 4-hour (07/08/2024 5:59 PM CLERICAL CLERK) [facility] Trop T hs 11 <=22 ng/L Comment: Interpretive Data For further hscTnT resources including the diagnostic algorithm and an aid in interpretation, copy and paste this link: https://nrl.testcatalog.org/show/hsTrop Current Interpretive Data last revised 2020. Trop T hs delta -5 ng/L KARL Trop T hs interp Equivocal KARL Blood 07/08/2024 5:59 PM CLERICAL CLERK 07/08/2024 6:01 PM CLERICAL CLERK Lorraine Dumont MD LAB BLOOD ORDERABLES Final Resu lt Performing Organization Address [facility] de Phone Number [facility] [address] [facility] Here@ [place] [address] * (ABNORMAL) Urinalysis reflex to microscopic and culture Urine, in and out catheter (07/08/2024 4:20PM CLERICAL CLERK) [facility] Color, ur Yellow Yellow Clarity, ur Cloudy(A) Clear KARL Specific gravity, ur 1.018 1.003 - 1.030 KARL pH, urine 6.0 KARL Comment: Interpretive Data U rine pH is affected by diet, medications, systemic acid-base disturbances, and renal tubular function. pH may affect urinary stone formation. For example, urine pH below 6.0 may help reduce the tendency for calcium phosphate stones and pH greater than 6.0 may reduce the tendency for uric acid stone formation. Source: [facility] Current Interpretive Data was last revised on 2017 Protein, ur ql 1+(A) Negative [facility] Glucose, ur ql Negative Negative [facility] Ketones, ur Negative Negative [facility] Bilirubin, ur Negative Negative [facility] Blood, ur Negative Negative [facility] Urobilinogen, ur 2.0(A) <2.0 mg/dL [facility] Nitrite, ur Positive(A) Negative [facility] Leukocyte esterase, ur 4+(A) Negative [facility] UA reflex comment Reflex to microscopic UA will be performed. KARL Urine, in and out catheter 07/08/2024 4:20 PM CLERICAL CLERK 07/08/2024 4:25 PM CLERICAL CLERK Lizet Sotelo MD LAB MICROBIOLOGY - GEN ERAL ORDERABLES Final Result Performing Organization Address [facility] Co de Phone Number KARL [address] Here@ [place] [address] * (ABNORMAL) Urinalysis, microscopic only (07/08/2024 4:20 PM CLERICAL CLERK) WBC, ur >50(A) 0 - 5 /HPF RBC, ur 6-10(A) 0 - 2 /HPF [facility] Bacteria, ur 4+(A) [facility] Mucous, ur Present(A) [facility] Culture Reflex Comment Reflex to urine culture will be performed. [facility] Urine, in and out catheter 07/08/2024 4:20 PM CLERICAL CLERK 07/08/2024 4:25 PM CLERICAL CLERK Lizet Sotelo MD LAB URINE ORDERABLES F inal Result Performing Organization Address [facility] Co de Phone Number KRYSTAL[address] Here@ [place] [address] * (ABNORMAL) Urine culture Urine, in and out catheter (07/08/2024 4:20 PM CLERICAL CLERK) Report Final Report: Greater than or equal to 100,000 colonies/mL of Klebsiella pneumoniae Greater than or equal to 100,000 colonies/mL of Klebsiella pneumoniae #2 (.) Comment:Testing performed by : [facility], [address] [place] [address] Organism KLEBSIELLA PNEUMONIAE KARL Organism KLEBSIELLA PNEUMONIAE KARL Urine, in and out catheter 07/08/2024 4:20 PM CLERICAL CLERK 07/08/2024 8:01 PM CLERICAL CLERK Narrative KARL [place] - 07/10/2024 3:41 PM CLERICAL CLERK Urine culture reflexed based upon urinalysis results. Testing performed by [facility] ([phone]) Organism Antibiotic Method Susceptibility Klebsiella pneumoniae Ampicillin INTERPRETATION Resistant Klebsiella pneumoniae Cefazolin INTERPRETATION Susceptible Klebsiella pneumoniae Nitrofurantoin INTERPRETATION Susceptible Klebsiella pneumoniae Gentamicin INTERPRETATION Susceptible Klebsiella pneumoniae Trimethoprim with Sulfamethoxazole INTERPRETATION Susceptible Klebsiella pneumoniae Meropenem INTERPRETATION Susceptible Klebsiella pneumoniae Cefepime INTERPRETATION Susceptible Klebsiella pneumoniae Ciprofloxacin INTERPRETATION Susceptible Klebsiella pneumoniae Ceftazidime INTERPRETATION Susceptible Klebsiella pneumoniae Ceftriaxone INTERPRETATION Susceptible Klebsiella pneumoniae Piperacillin/Tazobactam INTERPRE TATION Susceptible Klebsiella pneumoniae Cephalexin INTERPRETATION Susceptible Klebsiella pneumoniae Cefuroxime-axetil INTERPRETATION Susceptible Klebsiella pneumoniae Cefdinir INTERPRETATION Susceptible Klebsiella pneumoniae Ampicillin INTERPRETATION Resistant Klebsiella pneumoniae Cefazolin INTERPRETATION Susceptible Klebsiella pneumoniae Nitrofurantoin INTERPRETATION Susceptible Klebsiella pneumoniae Gentamicin INTERPRETATION Susceptible Klebsiella pneumoniae Trimethoprim with Sulfamethoxazole INTERPRETATION Susceptible Klebsiella pneumoniae Meropenem INTERPRETATION Susceptible Klebsiella pneumoniae Cefepime INTERPRETATION Susceptible Klebsiella pneumoniae Ciprofloxacin INTERPRETATION Susceptible Klebsiella pneumoniae Ceftazidime INTERPRETATION Susceptible Klebsiella pneumoniae Ceftriaxone INTERPRETATION Susceptible Klebsiella pneumoniae Piperacillin/Tazobactam INTERPRE TATION Susceptible Klebsiella pneumoniae Cephalexin INTERPRETATION Susceptible Klebsiella pneumoniae Cefuroxime-axetil INTERPRETATION Susceptible Klebsiella pneumoniae Cefdinir INTERPRETATION Susceptible us Lizet Sotelo MD LAB MICROBIOLOGY - GEN ERAL ORDERABLES Final Result KARL [address] [facility] Department [place] [address] * (ABNORMAL) Sepsis Lactate w/ Reflex (07/08/2024 4:19 PM CLERICAL CLERK) [facility] Sepsis Lactate 3.2(C) 0.7 - 2.0 mmol/L Comment:Critical Result call ed to and read back by [id number], DATE: 2024-07-08 16:56:38 BY: [id number] Blood 07/08/2024 4:19 PM CLERICAL CLERK 07/08/2024 4:25 PM CLERICAL CLERK Lizet Sotelo MD LAB BLOOD ORDERABLES F inal Result Performing Organization Address [facility] Co de Phone Number KARL [address] of Here@ [place] [address] * Troponin T high-sensitivity 2-hour (07/08/2024 3:36 PM CLERICAL CLERK) [facility] Trop T hs 14 <=22 ng/L Comment: Interpretive Data For further hscTnT resources including the diagnostic algorithm and an aid in interpretation, copy and paste this link: https://nrl.testcatalog.org/show/hsTrop Current Interpretive Data last revised 2020. Trop T hs delta -2 ng/L KARL Trop T hs interp Insignificant KARL Blood 07/08/2024 3:36 PM CLERICAL CLERK 07/08/2024 3:41 PM CLERICAL CLERK Lorraine Dumont MD LAB BLOOD ORDERABLES Final Resu lt Performing Organization Address [facility]/ZIP Co de Phone Number KRYSTAL[address] [place] [address] * (ABNORMAL) Sepsis Lactate w/ Reflex (07/08/2024 1:34 PM CLERICAL CLERK) [facility] Sepsis Lactate 3.5(C) 0.7 - 2.0 mmol/L Comment:Critical Result call ed to and read back by [email or web address], DATE: 2024-07-08 14:05:44 BY: [id number] Blood 07/08/2024 1:34 PM CLERICAL CLERK 07/08/2024 1:36 PM CLERICAL CLERK Lizet Sotelo MD LAB BLOOD ORDERABLES F inal Result Performing Organization Address [facility] de Phone Number KARL [facility] Here@ [place] [address] * Protime-INR (07/08/2024 1:34 PM CLERICAL CLERK) PT 12.9 12.0 - 14.6 sec INR 1.0 0.9 - 1.2 KARL Comment: Ref Range High Interpretive data Oral anticoagulant therapeutic ranges: Venous thromboembolism prophylaxis or treatment: 2.0-3.0 CARDIOLOGY Standard range: 2.0-3.0 High-intensity range: 2.5-3.5 Refer to indication-specific guidelines for appropriate target ranges for prosthetic heart valve replacement. Current interpretive data was last revised on 2019. Blood 07/08/2024 1:34 PM CLERICAL CLERK 07/08/2024 1:36 PM CLERICAL CLERK Lizet Sotelo MD LAB BLOOD ORDERABLES F inal Result Performing Organization Address [facility] de Phone Number [place] [address] [place] [address] * CT Head WO Contrast (07/08/2024 1:31 PM CLERICAL CLERK) Anatomical Region Laterality Modality Head and Neck N/A Computed Tomogra phy 07/08/2024 1:41 PM CLERICAL CLERK Narrative 07/08/2024 1:44 PM CLERICAL CLERK EXAM DESCRIPTION: CT HEAD WO CONTRAST REASON FOR STUDY: Syncopal episode and fall this morning at 1100 without provided history of closed head injury pursuant to event. No provided focal neurologic deficits. No provided history of inciting and/or aggravating events. No provided past medical or surgical history. TECHNIQUE: Axial images acquired through the brain without intravenous contrast. Images stored on PACS. Automated exposure control was used as a dose optimization technique for this examination. COMPARISON: Relevant portions of CT soft tissue neck with contrast 09/26/2022. FINDINGS: BRAIN: No acute intra-axial hemorrhage. No edema, mass effect, midline shift, or herniation. No evidence of acute territorial ischemia or infarct. Area of encephalomalacia with surrounding gliosis anterior left frontal lobe. Otherwise, scattered chronic lacunar infarcts, maximal about the left rodriguez radiata extending into the anterior limb of the left internal capsule. Otherwise, there is periventricular-subcortical hypoattenuating white matter disease, nonspecific, though likely secondary to chronic microvascular ischemia. EXTRA-AXIAL SPACES: No extra-axial fluid collections. No unenhanced CT evidence of extra-axial mass. There is cerebral and cerebellar volume loss. There is intracranial calcific atherosclerotic disease. CALVARIUM: No acute calvarial fracture. SINUSES/MASTOIDS: No significant mucosal thickening and no fluid levels of the visualized paranasal sinuses. Mastoid air cells well-developed and well aerated. Debris in the luuxo-mgjkgbr-ryra-left EACs. ORBITS: No acute abnormality. Right nightmute ocular lens replaced. OTHER: No other significant abnormality. IMPRESSION: No acute intracranial process with chronic findings as above. THIS IS AN ELECTRONICALLY VERIFIED FINAL REPORT 07/08/2024 1:44 PM - Electronically signed by Mike OLIVEIRA T: Report ID: [id number] Reading Location: [place] [address] Procedure Note Mike Madera MD - 07/08/2024 EXAM DESCRIPTION: CT HEAD WO CONTRAST REASON FOR STUDY: Syncopal episode and fall this morning at 1100 without provided history of closed head injury pursuant to event. No providedfocal neurologic deficits. No provided history of inciting and/or aggravating events. No provided past medical or surgical history. TECHNIQUE: Axial images acquired through the brain without intravenous contrast. Images stored on PACS. Automated exposure control was used asa dose optimization technique for this examination. COMPARISON: Relevant portions of CT soft tissue neck with [id number]/2023. FINDINGS: BRAIN: No acute intra-axial hemorrhage. No edema, mass effect, midlineshift, or herniation. No evidence of acute territorial ischemia or infarct.Area of encephalomalacia with surrounding gliosis anterior left frontal lobe. Otherwise, scattered chronic lacunar infarcts, maximal about the leftcorona radiata extending into the anterior limb of the left internal capsule. Otherwise, there is periventricular-subcortical hypoattenuating whitematter disease, nonspecific, though likely secondary to chronic microvascular ischemia. EXTRA-AXIAL SPACES: No extra-axial fluid collections. No unenhanced CT evidence of extra-axial mass. There is cerebral and cerebellar volumeloss. There is intracranial calcific atherosclerotic disease. CALVARIUM: No acute calvarial fracture. SINUSES/MASTOIDS: No significant mucosal thickening and no fluid levelsof the visualized paranasal sinuses. Mastoid air cells well-developed andwell aerated. Debris in the lqvts-guqrzbn-gxae-left EACs. ORBITS: No acute abnormality. Right nightmute ocular lens replaced. OTHER: No other significant abnormality. IMPRESSION: No acute intracranial process with chronic findings as above. THIS IS AN ELECTRONICALLY VERIFIED FINAL REPORT 07/08/2024 1:44 PM - Electronically signed by Mike OLIVEIRA T: Report ID: [id number] Reading Location: [id number] Lizet Sotelo MD IMG CT PROCEDURES Di l Result * XR Chest 1 Vw Portable (if patient condition/safety warrant portable) (07/08/2024 1:30 PM CLERICAL CLERK) Anatomical Region Laterality Modality Body, Chest N/A Computed Radiogr aphy 07/08/2024 1:44 PM CLERICAL CLERK Narrative 07/08/2024 1:45 PM CLERICAL CLERK EXAM DESCRIPTION: XR CHEST 1 VIEW REASON FOR STUDY: Syncopal episode today. No provided chest complaints. TECHNIQUE: Frontal radiographic views acquired of the chest. COMPARISON: Chest radiograph 07/30/2007 (images without report). FINDINGS: LUNGS: No focal consolidation. No pleural effusion. No pneumothorax. HEART/MEDIASTINUM: Trachea midline. Heart normal size and contour. Left hilar calcified lymph nodes. LINES/TUBES: None. BONES: No acute osseous abnormality. IMPRESSION: No acute cardiopulmonary process. THIS IS AN ELECTRONICALLY VERIFIED FINAL REPORT 07/08/2024 1:45 PM - Electronically signed by Mike OLIVEIRA T: Report ID: [id number] Reading Location: [id number] Procedure Note Mike Madera MD - 07/08/2024 EXAM DESCRIPTION: XR CHEST 1 VIEW REASON FOR STUDY: Syncopal episode today. No provided chest complaints. TECHNIQUE: Frontal radiographic views acquired of the chest. COMPARISON: Chest radiograph 07/30/2007 (images without report). FINDINGS: LUNGS: No focal consolidation. No pleural effusion. No pneumothorax. HEART/MEDIASTINUM: Trachea midline. Heart normal size and contour. Left hilar calcified lymph nodes. LINES/TUBES: None. BONES: No acute osseous abnormality. IMPRESSION: No acute cardiopulmonary process. THIS IS AN ELECTRONICALLY VERIFIED FINAL REPORT 07/08/2024 1:45 PM - Electronically signed by Mike OLIVEIRA T: Report ID: [id number] Reading Location: [id number] us Lizet Sotelo MD IMG XR PROCEDURES Di l Result * Troponin T high-sensitivity series (baseline, 2hr, 4hr, 6hr) (07/08/2024 1:04 PM CLERICAL CLERK) Pathologist [facility] Trop T hs 16 <=22 ng/L Comment: Interpretive Data For further hscTnT resources including the diagnostic algorithm and an aid in interpretation, copy and paste this link: [email or web address].testcatalog.org/[email or web address] Current Interpretive Data last revised 2020. Blood 07/08/2024 1:04 PM CLERICAL CLERK 07/08/2024 1:07 PM CLERICAL CLERK us Lizet Sotelo MD LAB BLOOD ORDERABLES F inal Result [facility] [address] [facility] Department [place] [address] * eGFR (07/08/2024 1:04 PM CLERICAL CLERK) [facility] eGFR >90 >=60 mL/min/1. 73 m2 Comment: Interpretive Data Reference Interval Normal >/= 90 mL/min/1.73m2 Mildly decreased* 60 - 89 mL/min/1.73m2 Mildly to moderately decreased 45 - 59 mL/min/1.73m2 Moderately to severely decreased 30 - 44 mL/min/1.73m2 Severely decreased 15 - 29 mL/min/1.73m2 Kidney Failure < 15 mL/min/1.73m2 *Relative to young adult level Estimated glomerular filtration rate is determined by the 2020 CKD-EPI equation recommended by the National Kidney Foundation (A Unifying Approach to GFR Estimation: Recommendations of the NKF-ASK Task Force on Reassessing the Inclusion of Race in Diagnosing Kidney Disease, JASN 2020). The CKD-EPI equation should not be used for patients with unstable renal function and has not been validated in children and those over 70. Current interpretive data was last reviewed 2021. Blood 07/08/2024 1:04 PM CLERICAL CLERK 07/08/2024 1:07 PM CLERICAL CLERK us Rehab Tim MATHIAS LAB BLOOD ORDERABLES Final Resu lt [place] [id number] [facility] Department [place] [address] * (ABNORMAL) Differential, auto (07/08/2024 1:04 PM CLERICAL CLERK) Pathologist [facility] Neutrophil abs 10.0(H) 1.5 - 6.5 K/cumm Imm gran abs 0.1 0.0 - 0.1 K/cumm [facility] Lymphocyte abs 1.3 0.8 - 3.3 K/cumm [facility] Monocyte abs 1.0(H) 0.2 - 0.8 K/cumm [facility] Eosinophil abs 0.2 0.0 - 0.5 K/cumm [facility] Basophil abs 0.1 0.0 - 0.1 K/cumm [facility] Neutrophil pct 79.9 % [facility] Comment: Interpretive Data Percent cell count reference ranges are not reported, since discordance with absolute values may lead to misinterpretation of CBC data. Current Interpretive Data was last revised on 2017. Imm gran pct 0.4 % [facility] Comment: Interpretive Data Percent cell count reference ranges are not reported, since discordance with absolute values may lead to misinterpretation of CBC data. Current Interpretive Data was last revised on 2017. Lymphocyte pct 10.1 % [facility] Comment: Interpretive Data Percent cell count reference ranges are not reported, since discordance with absolute values may lead to misinterpretation of CBC data. Current Interpretive Data was last revised on 2017. Monocyte pct 7.7 % [facility] Comment: Interpretive Data Percent cell count reference ranges are not reported, since discordance with absolute values may lead to misinterpretation of CBC data. Current Interpretive Data was last revised on 2017. Eosinophil pct 1.3 % [facility] Comment: Interpretive Data Percent cell count reference ranges are not reported, since discordance with absolute values may lead to misinterpretation of CBC data. Current Interpretive Data was last revised on 2017. Basophil pct 0.6 % [facility] Comment: Interpretive Data Percent cell count reference ranges are not reported, since discordance with absolute values may lead to misinterpretation of CBC data. Current Interpretive Data was last revised on 2017. Blood 07/08/2024 1:04 PM CLERICAL CLERK 07/08/2024 1:07 PM CLERICAL CLERK us Rehab Tim MATHIAS LAB BLOOD ORDERABLES Final Resu lt [facility] [address] [facility] Department [place] [address] * (ABNORMAL) CBC with auto differential (07/08/2024 1:04 PM CLERICAL CLERK) WBC 12.5(H) 3.8 - 9.9 K/cumm Hgb 15.0 13.0 - 17.5 g/dL [facility] Hct 44.9 38.9 - 50.3 % [facility] Plt 213 150 - 400 K/cumm [facility] MPV 11.9 9.1 - 12.3 fL [facility] RBC 4.79 4.30 - 5.80 M/cumm [facility] MCV 93.7 81.3 - 96.4 fL [facility] MCH 31.3 27.1 - 33.3 pg [facility] MCHC 33.4 32.3 - 35.7 g/dL [facility] RDW CV 13.9 11.1 - 14.9 % [facility] RDW SD 47.7 35.7 - 48.1 fL [facility] NRBC abs 0.00 0.00 - 0.01 K/cumm [facility] Blood (Blood, Venous) 07/08/2024 1:04 PM CLERICAL CLERK 07/08/2024 1:07 PM CLERICAL CLERK us Lizet Sotelo MD LAB BLOOD ORDERABLES F inal Result [facility] [address] [facility] Department [place] [address] * Comprehensive metabolic panel (07/08/2024 1:04 PM CLERICAL CLERK) Sodium 135 135 - 145 mmol/L Potassium, pl 4.3 3.3 - 4.9 mmol/L [facility] Chloride 98 97 - 110 mmol/L [facility] CO2 25 22 - 32 mmol/L [facility] Anion gap 12 2 - 15 mmol/L [facility] BUN 15 6 - 25 mg/dL [facility] Creatinine 0.90 0.80 - 1.30 mg/dL [facility] Glucose 177 70 - 199 mg/dL [facility] Comment: Interpretive Data Fasting glucose >/= 126 mg/dl is diagnostic for diabetes. Fasting is defined as no caloric intake for at least 8 hours. Fasting glucose between 100 mg/dl to 125 mg/dl is diagnostic of prediabetes. In a patient with classic symptoms of hyperglycemia or hyperglycemic crisis, a random glucose >/= 200 mg/dl is diagnostic for diabetes. In the absence of unequivocal hyperglycemia, results should be confirmed by repeat testing. The classification and Diagnosis of Diabetes Diabetes Care 202; 46: S19-S40. Current interpretive data was last revised 2022. Calcium 9.9 8.5 - 10.3 mg/dL [facility] Bilirubin, total 0.5 0.1 - 1.2 mg/dL [facility] Protein, pl 7.3 6.5 - 8.5 g/dL [facility] Albumin 4.2 3.5 - 5.0 g/dL [facility] Alk phos 76 40 - 130 Units/L [facility] ALT 19 7 - 55 Units/L [facility] AST 12 10 - 50 Units/L [facility] Blood 07/08/2024 1:04 PM CLERICAL CLERK 07/08/2024 1:07 PM CLERICAL CLERK Lizet Sotelo MD LAB BLOOD ORDERABLES F inal Result Performing Organization Address [facility] Co de Phone Number [facility] [address] [facility] Department [place] [address] * ECG 12 lead (07/08/2024 12:50 PM CLERICAL CLERK) Pathologist [facility] Ventricular Rate EKG/Min 107 BPM [facility] Atrial Rate 107 BPM [facility] CA-Interval (MSEC) 190 ms [facility] QRS-Interval (MSEC) 92 ms [facility] QT-Interval (MSEC) 356 ms [facility] QTc 475 ms [facility] P [place] 62 degrees [facility] R [place] 61 degrees [facility] T [place] 55 degrees [facility] Diagnosis Sinus tachycardia Low voltage QRS Borderline ECG No previous ECGs available Confirmed by KENDALL ORTEGA M.D. ([id number]) on 07/09/2024 8:19:39 AM [facility] 07/08/2024 12:5 0 PM CLERICAL CLERK 07/09/2024 8:19 AM CLERICAL CLERK us Lizet Sotelo MD ECG ORDERABLES Final Result Performing Organization Address [facility] de Phone Number [facility] * eGFR (06/30/2024 5:40 AM CLERICAL CLERK) Pathologist [facility] eGFR >90 >=60 mL/min/1. 73 m2 KARL Comment: Interpretive Data Reference Interval Normal >/= 90 mL/min/1.73m2 Mildly decreased* 60 - 89 mL/min/1.73m2 Mildly to moderately decreased 45 - 59 mL/min/1.73m2 Moderately to severely decreased 30 - 44 mL/min/1.73m2 Severely decreased 15 - 29 mL/min/1.73m2 Kidney Failure < 15 mL/min/1.73m2 *Relative to young adult level Estimated glomerular filtration rate is determined by the 2020 CKD-EPI equation recommended by the National Kidney Foundation (A Unifying Approach to GFR Estimation: Recommendations of the NKF-ASK Task Force on Reassessing the Inclusion of Race in Diagnosing Kidney Disease, JASN 2020). The CKD-EPI equation should not be used for patients with unstable renal function and has not been validated in children and those over 70. Current interpretive data was last reviewed 2021. [facility], [address] [place] [address]., [id number] Blood 06/30/2024 5:40 AM CLERICAL CLERK 06/30/2024 7:08 AM CLERICAL CLERK us Pat EMERY LAB BLOOD ORDERABLES Final Resu lt [facility] [place] [address] [place] [address] Department [place] [address] * (ABNORMAL) CBC without differential (06/30/2024 5:40 AM CLERICAL CLERK) WBC 7.6 3.8 - 9.9 K/cumm [facility] [place] Comment:[address] [address] Hgb 13.9 13.0 - 17.5 g/dL [facility] [place] Comment:[address] [address] Hct 42.5 38.9 - 50.3 % [facility] [place] Comment:[address] [address] Plt 185 150 - 400 K/cumm [facility] [place] Comment:[address] [address] MPV 12.9(H) 9.1 - 12.3 fL [facility] [place] Comment:[address] [address] RBC 4.50 4.30 - 5.80 M/cumm [facility] [place] Comment:[address] [address] MCV 94.4 81.3 - 96.4 fL [facility] [place] Comment:[address] [address] MCH 30.9 27.1 - 33.3 pg [facility] [place] Comment:[address], [address] MCHC 32.7 32.3 - 35.7 g/dL [facility] Comment:[address] [address] RDW CV 13.9 11.1 - 14.9 % [facility] Comment:[address] [address] RDW SD 47.9 35.7 - 48.1 fL [facility] Comment:[address], [address] NRBC abs 0.00 0.00 - 0.01 K/cumm [facility] [place] Comment:[address] [address] Blood 06/30/2024 5:40 AM CLERICAL CLERK 06/30/2024 7:08 AM CLERICAL CLERK us Pat EMERY LAB BLOOD ORDERABLES Final Resu lt [facility] 45[address] [facility] Department [place] [address] * Comprehensive metabolic panel (06/30/2024 5:40 AM CLERICAL CLERK) Sodium 138 135 - 145 mmol/L [facility] Comment:[address] [address] Potassium, pl 4.1 3.3 - 4.9 mmol/L [facility] Comment:[address] [address] Chloride 99 97 - 110 mmol/L [facility] Comment:[address], [address] CO2 29 22 - 32 mmol/L [facility] Comment:[address], [address] Anion gap 10 2 - 15 mmol/L [facility] Comment:[address], [address] BUN 18 6 - 25 mg/dL [facility] Comment:[address] [address] Creatinine 0.80 0.80 - 1.30 mg/dL [facility] Comment:[address] [address] Glucose 187 70 - 199 mg/dL [facility] Comment: Interpretive Data Fasting glucose >/= 126 mg/dl is diagnostic for diabetes. Fasting is defined as no caloric intake for at least 8 hours. Fasting glucose between 100 mg/dl to 125 mg/dl is diagnostic of prediabetes. In a patient with classic symptoms of hyperglycemia or hyperglycemic crisis, a random glucose >/= 200 mg/dl is diagnostic for diabetes. In the absence of unequivocal hyperglycemia, results should be confirmed by repeat testing. The classification and Diagnosis of Diabetes Diabetes Care 202; 46: S19-S40. Current interpretive data was last revised 2022. [facility], [address] [place]., [address] Calcium 9.5 8.5 - 10.3 mg/dL [facility] Comment:[address] [address] Bilirubin, total 0.3 0.1 - 1.2 mg/dL [facility] Comment:[address] [address] Protein, pl 6.5 6.5 - 8.5 g/dL [facility] Comment:[address] [address] Albumin 3.9 3.5 - 5.0 g/dL [facility] Comment:[address] [address] Alk phos 69 40 - 130 Units/L [facility] Comment:[address] [address] ALT 12 7 - 55 Units/L [facility] Comment:[address] [address] AST 12 10 - 50 Units/L [facility] Comment:[address] [address] Blood 06/30/2024 5:40 AM CLERICAL CLERK 06/30/2024 7:08 AM CLERICAL CLERK Pat EMERY LAB BLOOD ORDERABLES Final Resu lt KAR[facility] 8[address] [facility] Department [place] [address] * FL Modified Barium Swallow W Video (06/29/2024 2:01 PM CLERICAL CLERK) Anatomical Region Laterality Modality Head and Neck N/A Computed Radiogr aphy, Computed Radiography 06/29/2024 2:13 PM CLERICAL CLERK Narrative 06/29/2024 2:14 PM CLERICAL CLERK EXAM DESCRIPTION: FL MODIFIED BARIUM SWALLOW EVALUATION WITH SPEECH THERAPIST REASON FOR STUDY: DYSPHAGIA, OROPHARYNGEAL, HAS ATTRIBUTABLE CAUSE TECHNIQUE: A fluoroscopic swallowing evaluation was performed in conjunction with the speech pathologist using multiple consistencies of barium. Dose area product 336.15 uGy per meter squared. FINDINGS: Penetration with silent aspiration of thin liquids, particularly with a straw. IMPRESSION: Aspiration. Please refer to the speech pathologist's report for additional details. THIS IS AN ELECTRONICALLY VERIFIED FINAL REPORT 06/29/2024 2:14 PM - Electronically signed by Kareem Burnett M.D. SN T: Report ID: [id number] Reading Location: [place] [address] Procedure Note Kareem Burnett MD - 06/29/2024 EXAM DESCRIPTION: FL MODIFIED BARIUM SWALLOW EVALUATION WITH SPEECHTHERAPIST REASON FOR STUDY: DYSPHAGIA, OROPHARYNGEAL, HAS ATTRIBUTABLE CAUSE TECHNIQUE: A fluoroscopic swallowing evaluation was performed inconjunction with the speech pathologist using multiple consistencies of barium. Dosearea product 336.15 uGy per meter squared. FINDINGS: Penetration with silent aspiration of thin liquids, particularly with a straw. IMPRESSION: Aspiration. Please refer to the speech pathologist's report for additional details. THIS IS AN ELECTRONICALLY VERIFIED FINAL REPORT 06/29/2024 2:14 PM - Electronically signed by Kareem Burnett M.D. SN T: Report ID: [id number] Reading Location: [place] [address] Pat EMERY IMG FLUOROSCOPY PROCEDURES Di l Result * (ABNORMAL) CBC without differential (06/14/2024 5:44 AM CLERICAL CLERK) WBC 9.2 3.8 - 9.9 K/cumm K[facility] Comment:[address], [address] Hgb 13.5 13.0 - 17.5 g/dL [facility] Comment:[address], [address] Hct 41.7 38.9 - 50.3 % [facility] Comment:[address], [address] Plt 226 150 - 400 K/cumm [facility] Comment:[address], [address] MPV 13.1(H) 9.1 - 12.3 fL [facility] Comment:[address], [address] RBC 4.33 4.30 - 5.80 M/cumm [facility] Comment:[address], [address] MCV 96.3 81.3 - 96.4 fL [facility] Comment:[address], [address] MCH 31.2 27.1 - 33.3 pg [facility] Comment:[address], [address] MCHC 32.4 32.3 - 35.7 g/dL [facility] Comment:[address], [address] RDW CV 14.2 11.1 - 14.9 % [facility] Comment:[address], [address] RDW SD 50.1(H) 35.7 - 48.1 fL [facility] Comment:[address], [address] NRBC abs 0.00 0.00 - 0.01 K/cumm [facility] Comment:[address], [address] Blood 06/14/2024 5:44 AM CLERICAL CLERK 06/14/2024 8:08 AM CLERICAL CLERK us Pat EMERY LAB BLOOD ORDERABLES Final Resu lt [facility] [address] [facility] Department [place] [address] * FL Modified Barium Swallow W Video (06/09/2024 2:28 PM CLERICAL CLERK) Anatomical Region Laterality Modality Head and Neck N/A Computed Radiogr aphy, Computed Radiography 06/09/2024 2:41 PM CLERICAL CLERK Narrative 06/09/2024 2:43 PM CLERICAL CLERK EXAM DESCRIPTION: FL MODIFIED BARIUM SWALLOW EVALUATION WITH SPEECH THERAPIST REASON FOR STUDY: Chronic dysphagia. RADIATION DOSE: Dose: 191.21 mGy Reference Air Kerma (Ka,r) TECHNIQUE: Fluoroscopic assistance provided to Speech Pathology Department who performed the exam. The patient was brought into the fluoro room and placed upright on a modified barium swallow chair. The patient was then given multiple consistencies mixed with barium to swallow under live fluoroscopic video guidance. COMPARISON: None. FINDINGS: Aspiration of thin liquid consistency. Variable residuals to include variable vallecular pooling of multiple consistencies. IMPRESSION: 1. Aspiration of thin liquid consistency. 2. Variable residuals to include variable vallecular pooling of multiple consistencies. 3. Please reference Speech Pathology report for details. THIS IS AN ELECTRONICALLY VERIFIED FINAL REPORT 06/09/2024 2:43 PM - Electronically signed by Mike Madera M.D. TEE T: Report ID: [id number] Reading Location: [id number] Procedure Note Mike Madera MD - 06/09/2024 EXAM DESCRIPTION: FL MODIFIED BARIUM SWALLOW EVALUATION WITH SPEECH THERAPIST REASON FOR STUDY: Chronic dysphagia. RADIATION DOSE: Dose: 191.21 mGy Reference Air Kerma (Ka,r) TECHNIQUE: Fluoroscopic assistance provided to Speech Pathology Departmentwho performed the exam. The patient was brought into the fluoro room and placed upright on amodified barium swallow chair. The patient was then given multiple consistenciesmixed with barium to swallow under live fluoroscopic video guidance. COMPARISON: None. FINDINGS: Aspiration of thin liquid consistency. Variable residuals to include variable vallecular pooling of multiple consistencies. IMPRESSION: 1. Aspiration of thin liquid consistency. 2. Variable residuals to include variable vallecular pooling of multiple consistencies. 3. Please reference Speech Pathology report for details. THIS IS AN ELECTRONICALLY VERIFIED FINAL REPORT 06/09/2024 2:43 PM - Electronically signed by Mike OLIVEIRA T: Report ID: [id number] Reading Location: [place] [address] Pat EMERY IMG FLUOROSCOPY PROCEDURES Di l Result * eGFR (06/08/2024 8:31 AM CLERICAL CLERK) eGFR >90 >=60 mL/min/1. 73 m2 [facility] [place] Comment: Interpretive Data Reference Interval Normal >/= 90 mL/min/1.73m2 Mildly decreased* 60 - 89 mL/min/1.73m2 Mildly to moderately decreased 45 - 59 mL/min/1.73m2 Moderately to severely decreased 30 - 44 mL/min/1.73m2 Severely decreased 15 - 29 mL/min/1.73m2 Kidney Failure < 15 mL/min/1.73m2 *Relative to young adult level Estimated glomerular filtration rate is determined by the 2020 CKD-EPI equation recommended by the National Kidney Foundation (A Unifying Approach to GFR Estimation: Recommendations of the NKF-ASK Task Force on Reassessing the Inclusion of Race in Diagnosing Kidney Disease, JASN 2020). The CKD-EPI equation should not be used for patients with unstable renal function and has not been validated in children and those over 70. Current interpretive data was last reviewed 2021. [facility], [address] [place] [address], [place]., [address] Blood 06/08/2024 8:31 AM CLERICAL CLERK 06/08/2024 8:42 AM CLERICAL CLERK Pat EMERY LAB BLOOD ORDERABLES Final Resu lt [facility] [place] [address] [place] [address] Department [place] [address] * (ABNORMAL) CBC without differential (06/08/2024 8:31 AM CLERICAL CLERK) WBC 11.1(H) 3.8 - 9.9 K/cumm [facility] Comment:[address], [address] Hgb 13.6 13.0 - 17.5 g/dL [facility] Comment:[address], [address] Hct 41.6 38.9 - 50.3 % [facility] Comment:[address], [address] Plt 171 150 - 400 K/cumm [facility] Comment:[address], [address] MPV 13.2(H) 9.1 - 12.3 fL [facility] Comment:[address], [address] RBC 4.33 4.30 - 5.80 M/cumm [facility] Comment:[address], [address] MCV 96.1 81.3 - 96.4 fL [facility] Comment:[address], [address] MCH 31.4 27.1 - 33.3 pg [facility] Comment:[address], [address] MCHC 32.7 32.3 - 35.7 g/dL [facility] Comment:[address], [address] RDW CV 14.6 11.1 - 14.9 % [facility] Comment:[address], [address] RDW SD 51.8(H) 35.7 - 48.1 fL [facility] Comment:[address], [address] NRBC abs 0.00 0.00 - 0.01 K/cumm [facility] Comment:[address], [address] Blood 06/08/2024 8:31 AM CLERICAL CLERK 06/08/2024 8:42 AM CLERICAL CLERK us Pat EMERY LAB BLOOD ORDERABLES Final Resu lt [facility] [address] Department [place] [address] * (ABNORMAL) Comprehensive metabolic panel (06/08/2024 8:31 AM CLERICAL CLERK) Sodium 135 135 - 145 mmol/L [facility] Comment:[address] [address] Potassium, pl 4.2 3.3 - 4.9 mmol/L [facility] Comment:[address] [address] Chloride 98 97 - 110 mmol/L [facility] Comment:[address] [address] CO2 29 22 - 32 mmol/L [facility] Comment:[address] [address] Anion gap 8 2 - 15 mmol/L [facility] Comment:[address] [address] BUN 24 6 - 25 mg/dL [facility] Comment:[address] [address] Creatinine 0.94 0.80 - 1.30 mg/dL [facility] Comment:[address] [address] Glucose 271(H) 70 - 199 mg/dL [facility] Comment: Interpretive Data Fasting glucose >/= 126 mg/dl is diagnostic for diabetes. Fasting is defined as no caloric intake for at least 8 hours. Fasting glucose between 100 mg/dl to 125 mg/dl is diagnostic of prediabetes. In a patient with classic symptoms of hyperglycemia or hyperglycemic crisis, a random glucose >/= 200 mg/dl is diagnostic for diabetes. In the absence of unequivocal hyperglycemia, results should be confirmed by repeat testing. The classification and Diagnosis of Diabetes Diabetes Care 202; 46: S19-S40. Current interpretive data was last revised 2022. [facility], [address] [place] [address]., [address] Calcium 9.9 8.5 - 10.3 mg/dL [facility] Comment:[address] [address] Bilirubin, total 0.3 0.1 - 1.2 mg/dL [facility] Comment:[address] [address] Protein, pl 6.6 6.5 - 8.5 g/dL [facility] Comment:[address] [address] Albumin 3.9 3.5 - 5.0 g/dL [facility] Comment:[address] [address] Alk phos 78 40 - 130 Units/L [facility] Comment:[address] [address] ALT 23 7 - 55 Units/L [facility] Comment:[address], [address] AST 18 10 - 50 Units/L [facility] Comment:[address] [address] Blood 06/08/2024 8:31 AM CLERICAL CLERK 06/08/2024 8:42 AM CLERICAL CLERK us Pat EMERY LAB BLOOD ORDERABLES Final Resu lt [facility] [address] [facility] Department [place] [address] * eGFR (06/04/2024 4:21 PM CLERICAL CLERK) eGFR >90 >=60 mL/min/1. 73 m2 [facility] Comment: Interpretive Data Reference Interval Normal >/= 90 mL/min/1.73m2 Mildly decreased* 60 - 89 mL/min/1.73m2 Mildly to moderately decreased 45 - 59 mL/min/1.73m2 Moderately to severely decreased 30 - 44 mL/min/1.73m2 Severely decreased 15 - 29 mL/min/1.73m2 Kidney Failure < 15 mL/min/1.73m2 *Relative to young adult level Estimated glomerular filtration rate is determined by the 2020 CKD-EPI equation recommended by the National Kidney Foundation (A Unifying Approach to GFR Estimation: Recommendations of the NKF-ASK Task Force on Reassessing the Inclusion of Race in Diagnosing Kidney Disease, JASN 202). The CKD-EPI equation should not be used for patients with unstable renal function and has not been validated in children and those over 70. Current interpretive data was last reviewed 2021. [facility], [facility] [place]., [address] Blood 06/04/2024 4:21 PM CLERICAL CLERK 06/04/2024 4:34 PM CLERICAL CLERK us Tawny Batres BED LABORER LAB BLOOD ORDERABLES Final Result KARL [address] Department [place] [address] * (ABNORMAL) CBC without differential (06/04/2024 4:21 PM CLERICAL CLERK) WBC 8.3 3.8 - 9.9 K/cumm KARL Comment:[address] [address] Hgb 13.3 13.0 - 17.5 g/dL KARL Comment:[address] [address] Hct 39.4 38.9 - 50.3 % KARL Comment:[address] [address] Plt 136(L) 150 - 400 K/cumm KARL Comment:[address] [address] MPV 12.7(H) 9.1 - 12.3 fL KARL Comment:[address] [address] RBC 4.17(L) 4.30 - 5.80 M/cumm KARL Comment:[address] [address] MCV 94.5 81.3 - 96.4 fL KARL Comment:[address] [address] MCH 31.9 27.1 - 33.3 pg KARL Comment:[address] [address] MCHC 33.8 32.3 - 35.7 g/dL [facility] [place] Comment:[address] [address] RDW CV 14.6 11.1 - 14.9 % [facility] [place] Comment:[address] [address] RDW SD 50.1(H) 35.7 - 48.1 fL [facility] [place] Comment:[address] [address] NRBC abs 0.00 0.00 - 0.01 K/cumm [facility] [place] Comment:[address] [address] Blood 06/04/2024 4:21 PM CLERICAL CLERK 06/04/2024 4:34 PM CLERICAL CLERK Tawny Batres BED LABORER LAB BLOOD ORDERABLES Final Result Performing Organization Address City/[facility] Co de Phone Number [id number] [employer]@ [place] [address] * Phosphorus (06/04/2024 4:21 PM CLERICAL CLERK) Phosphorus, pl 3.6 2.3 - 4.5 mg/dL KARL Comment:[address] [address] Blood 06/04/2024 4:21 PM CLERICAL CLERK 06/04/2024 4:34 PM CLERICAL CLERK Tawny Batres BED LABORER LAB BLOOD ORDERABLES Final Result [address] Here@ [place] [address] * Magnesium (06/04/2024 4:21 PM CLERICAL CLERK) Magnesium 2.3 1.4 - 2.5 mg/dL [facility] [place] Comment:[address] [address] Blood 06/04/2024 4:21 PM CLERICAL CLERK 06/04/2024 4:34 PM CLERICAL CLERK Tawny Batres BED LABORER LAB BLOOD ORDERABLES Final Result Performing Organization Address [facility]/ZIP Co de Phone Number KARL [address] Department [place] [address] * (ABNORMAL) Hemoglobin A1c (06/04/2024 4:21 PM CLERICAL CLERK) Hgb A1C 7.6(H) 4.0 - 5.6 % KARL Comment:[address] [address] Estimated Average Glucose 171 mg/dL KARL Comment: The ADA recommends reporting an estimated Average Glucose (eAG) with all Hemoglobin A1c results using the equation derived from a study of 507 normal and diabetic adults. Minority populations were underrepresented and children were not included. (Diabetes Care 31:2887-8462, 2008). The eAG is not equivalent to a fasting glucose. [address] [address] Blood 06/04/2024 4:21 PM CLERICAL CLERK 06/04/2024 4:34 PM CLERICAL CLERK Tawny Batres NP LAB BLOOD ORDERABLES Final Result Performing Organization Address [facility] Co de Phone Number KARL [address] [place] [address] * (ABNORMAL) Comprehensive metabolic panel (06/04/2024 4:21 PM CLERICAL CLERK) Sodium 134(L) 135 - 145 mmol/L KRAL Comment:[address] [address] Potassium, pl 4.1 3.3 - 4.9 mmol/L KARL Comment:[address] [address] Chloride 95(L) 97 - 110 mmol/L KARL Comment:[address] [address] CO2 27 22 - 32 mmol/L KARL Comment:[address] [address] Anion gap 12 2 - 15 mmol/L [facility] Comment:[address] [address] BUN 25 6 - 25 mg/dL [facility] Comment:[address] [address] Creatinine 0.86 0.80 - 1.30 mg/dL [facility] Comment:[address] [address] Glucose 229(H) 70 - 199 mg/dL [facility] Comment: Interpretive Data Fasting glucose >/= 126 mg/dl is diagnostic for diabetes. Fasting is defined as no caloric intake for at least 8 hours. Fasting glucose between 100 mg/dl to 125 mg/dl is diagnostic of prediabetes. In a patient with classic symptoms of hyperglycemia or hyperglycemic crisis, a random glucose >/= 200 mg/dl is diagnostic for diabetes. In the absence of unequivocal hyperglycemia, results should be confirmed by repeat testing. The classification and Diagnosis of Diabetes Diabetes Care 202; 46: S19-S40. Current interpretive data was last revised 2022. [facility], [address] [place]., [address] Calcium 9.5 8.5 - 10.3 mg/dL [facility] Comment:[address] [address] Bilirubin, total 0.4 0.1 - 1.2 mg/dL [facility] Comment:[address] [address] Protein, pl 6.5 6.5 - 8.5 g/dL [facility] Comment:[address] [address] Albumin 3.9 3.5 - 5.0 g/dL [facility] Comment:[address] [address] Alk phos 79 40 - 130 Units/L [facility] Comment:[address] [address] ALT 28 7 - 55 Units/L [facility] Comment:[address] [address] AST 13 10 - 50 Units/L [facility] Comment:[address] [address] Blood 06/04/2024 4:21 PM CLERICAL CLERK 06/04/2024 4:34 PM CLERICAL CLERK Tawny Batres BED LABORER LAB BLOOD ORDERABLES Final Result KARL [facility] [address] [facility] Department [place] [address] from Last 3 Months Insurance [address] [place] [id number] Advance Directives For more information, please contact: [phone] Documents on File Type Date Recorded Patient Quality Technician Expl anation ADVANCE DIRECTIVE 07/14/2024 11:20 AM POLS T - Phys Order for PT Preferences * Full Code (Latest Code Status on File) Date Activated Date Inactivated Comments 07/08/2024 8:07 PM 07/13/2024 6:31 PM Care Teams [employer]er Relationship Specialty Start Date End Date Franck Garcia MD PCP - General 02/10/17
--- OUTSIDE RECORDS SUMMARY | 2024-08-12 08:28 | XMS_ITS | Clinical Summary ---
Author Organization [facility] Physician Office Building [address] [place] [phone] Care Team Providers Care Stroke Coordinator Name Role Phone Franck Garcia MD Primary Care Provider Allergies No known active allergies Medications acetaminophen [...] 06/03/2024 Assessment & Plan (07/06/2024 11:09 AM INTERACTIVE MULTIMEDIA DESIGNER): Hypotension has resolved, patient has not required use of midodrine. Midodrine discontinued. Continue to monitor Assessment & Plan (06/28/2024 1:34 PM INTERACTIVE MULTIMEDIA DESIGNER): No further hypotensive episodes, patient denies dizziness with participation in therapy. Blood pressure was actually been higher. If this persists we will need to start an antihypertensive. Midodrine will remain on hold. Continue to monitor Assessment & Plan (06/23/2024 6:03 PM INTERACTIVE MULTIMEDIA DESIGNER): Blood pressure has significantly improved. Midodrine has not been dosed due to hold parameters. We will place midodrine on hold. Monitor blood pressure Assessment & Plan (06/22/2024 9:07 AM INTERACTIVE MULTIMEDIA DESIGNER): This is chronic but currently stable. We will continue midodrine 2.5 mg b.i.d.. Assessment & Plan (06/21/2024 6:18 PM INTERACTIVE MULTIMEDIA DESIGNER): As patient's strength improves, blood pressure has rebounded. We will decrease midodrine to 2.5 mg b.i.d. with hold parameters in place. Assessment & Plan (06/20/2024 7:28 AM INTERACTIVE MULTIMEDIA DESIGNER): This is chronic and currently stable. We will continue midodrine 10 mg b.i.d. Assessment & Plan (06/10/2024 2:44 PM INTERACTIVE MULTIMEDIA DESIGNER): He had a witnessed episode of syncope [...] pressure. Assessment & Plan (06/08/2024 11:56 AM INTERACTIVE MULTIMEDIA DESIGNER): Blood pressure has rebounded, we will place midodrine on hold Assessment & Plan (06/04/2024 10:30 PM INTERACTIVE MULTIMEDIA DESIGNER): Blood pressure so far well controlled, patient currently asymptomatic. Continue scheduled midodrine 10 mg t.i.d.. Patient has not displayed any hypertensive episodes. Hold parameters in place Assessment & Plan (06/03/2024 1:36 PM INTERACTIVE MULTIMEDIA DESIGNER): BP stable, mildly elevated. Is on Midodrine q8h to be held with MAP>80 per Neurology. History of stroke 06/03/2024 Assessment & Plan (07/06/2024 11:12 AM INTERACTIVE MULTIMEDIA DESIGNER): Remains weak but is slowly making improvements with strength and endurance. Continue aspirin, atorvastatin, Plavix, blood pressure management. Assessment & Plan (06/28/2024 1:36 PM INTERACTIVE MULTIMEDIA DESIGNER): No new neurologic changes, dysphagia persists although has improved. Modified barium swallow was postponed until tomorrow. Continue post stroke prophylaxis with aspirin, atorvastatin, Plavix, blood pressure management. Assessment & Plan (06/21/2024 6:20 PM INTERACTIVE MULTIMEDIA DESIGNER): Right-sided weakness and some dysphagia, slowly improving with therapy modalities. Pain is controlled. Continue post stroke prophylaxis with Plavix, aspirin, atorvastatin, blood pressure management Assessment & Plan (06/10/2024 2:58 PM INTERACTIVE MULTIMEDIA DESIGNER): This is chronic and stable. Please continue aspirin 81 mg, atorvastatin, Plavix. Assessment & Plan (06/08/2024 11:55 AM INTERACTIVE MULTIMEDIA DESIGNER): With persistent right-sided weakness. Patient is participating well in therapy and is slowly making progress with strength and endurance. Continue post stroke prophylaxis with aspirin, atorvastatin, Plavix, blood pressure control Assessment & Plan (06/06/2024 8:45 AM INTERACTIVE MULTIMEDIA DESIGNER): I endorse admission to custodial care. The patient is at risk of [...] care. 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 Continue ASA, Statin, BP & DM control. PT/OT/ST to assess. Dysphagia as late effect of cerebrovascular acci dent (CVA) 06/03/2024 Assessment & Plan (07/06/2024 11:11 AM INTERACTIVE MULTIMEDIA DESIGNER): Patient was made significant progress with his swallow function. Last week was upgraded to pureed solids with nectar thickened liquids and has been attempting to advance with speech therapy. Has not required tube feed for nutrition, was started on ensure enlive with each meal Assessment & Plan (06/30/2024 11:34 PM INTERACTIVE MULTIMEDIA DESIGNER): Patient had modified barium swallow performed 06/29/2024 with the following recommendations: Puree solids and Gibbon thick liquids (initially with RN APPEALS advancing to PO diet per treating RN APPEALS recommendations) Medication Administration: per tube Compensatory Strategies/Modifications: Sit upright at 90' during all oral intake, Small bites, Small sips, and Dry swallow 2-3 time(s) between bites/sips Spoke with house RN APPEALS, is hopeful to advanced quickly as patient seemed to do very well with his swallow study. We will continue current tube feeds for now with Glucerna 1.2 calories 360 cc 5 times daily. Hopeful that patient's p.o. intake will improve quickly and we will be able to reassess nutritional status and need for further tube feed. Assessment & Plan (06/23/2024 6:08 PM INTERACTIVE MULTIMEDIA DESIGNER): Working with RN APPEALS - patient was making good progress, tolerating ice chips. RN APPEALS requesting to repeat modified barium swallow which will be performed in a.m.. Tolerating current tube feeds with Glucerna 1.2 heidi 360 cc 5 times per day followed by 30 cc water flushes Assessment & Plan (06/08/2024 11:54 AM INTERACTIVE MULTIMEDIA DESIGNER): Patient is now tolerating tube feeds well without nausea, abdominal pain, emesis. He is working hard with speech therapy, RN APPEALS reports that he has been tolerating all trials of liquids and pudding/applesauce. We will order repeat modified barium swallow per RN APPEALS request Assessment & Plan (06/04/2024 10:23 PM INTERACTIVE MULTIMEDIA DESIGNER): Adjustment in tube feeds have significantly reduced GI symptoms. Continue Glucerna 1.2 calorie boluses 360cc , 5 times per day followed by a 30 cc water flush after each feeding. Speech therapy will continue to follow, we will monitor for improved strength with swallow. Assessment & Plan (06/03/2024 1:35 PM INTERACTIVE MULTIMEDIA DESIGNER): PEG in place with bolus feeds. Not tolerating bolus feeds well currently per nursing. Have reduced water flush to 30ml after feeding, continue bolus feeding 5x/d but nursing can run over pump. Will monitor. RN APPEALS to follow. Urinary retention 06/03/2024 Assessment & Plan (07/06/2024 11:11 AM INTERACTIVE MULTIMEDIA DESIGNER): Resolved, continue finasteride Assessment & Plan (06/30/2024 11:34 PM INTERACTIVE MULTIMEDIA DESIGNER): Patient continues to void well, we will continue finasteride Assessment & Plan (06/23/2024 6:09 PM INTERACTIVE MULTIMEDIA DESIGNER): Patient has been voiding without difficulty using urinal. Continue finasteride 5 mg daily Assessment & Plan (06/03/2024 1:29 PM INTERACTIVE MULTIMEDIA DESIGNER): Noted in hospital. Etiology unknown. Likely s/t neurogenic. Will have staff bladder scan & monitor for need for ISC. PEG (percutaneous endoscopic gastrostomy) status ([facility]) 06/03/2024 Assessment & Plan (06/22/2024 9:07 AM INTERACTIVE MULTIMEDIA DESIGNER): We will continue tube feedings for nutrition. I appreciate the input from speech therapy and the dietitian. Smoker 01/06/2019 Type 2 diabetes mellitus 03/09/2017 Assessment & Plan (07/08/2024 5:31 PM INTERACTIVE MULTIMEDIA DESIGNER): Pending ER evaluation, continue insulin aspart, insulin glargine, metformin. Assessment & Plan (07/06/2024 11:09 AM INTERACTIVE MULTIMEDIA DESIGNER): A1c 7.6, Accu-Cheks well controlled with rare use sliding scale. Continue Lantus 30 units q.h.s., metformin 1000 mg b.i.d. Assessment & Plan (06/30/2024 11:29 PM INTERACTIVE MULTIMEDIA DESIGNER): Accu-Cheks ranging from 114-220 with a hemoglobin A1c of 7.6. Continue Lantus 30 units q.h.s., metformin 1000 mg b.i.d., sliding scale insulin with meals Assessment & Plan (06/28/2024 1:36 PM INTERACTIVE MULTIMEDIA DESIGNER): A1c 7.6, Accu-Cheks ranging from 111-209. Continue metformin 1000 mg b.i.d., Lantus 30 units q.h.s., sliding scale insulin with meals Assessment & Plan (06/22/2024 9:07 AM INTERACTIVE MULTIMEDIA DESIGNER): This is chronic but currently stable. We will continue to monitor point of care glucose and labs. We will continue aspirin, atorvastatin, insulin aspart, insulin glargine, and metformin. Assessment & Plan (06/21/2024 6:20 PM INTERACTIVE MULTIMEDIA DESIGNER): A1c 7.6, Accu-Cheks 144-223 continue Lantus 30 units q.h.s., metformin 1000 mg b.i.d., sliding scale insulin with meals Assessment & Plan (06/20/2024 7:28 AM INTERACTIVE MULTIMEDIA DESIGNER): This is chronic and stable. We will continue insulin aspart and insulin glargine. We will continue scripting of metformin. We will follow point of care glucose. Assessment & Plan (06/10/2024 2:58 PM INTERACTIVE MULTIMEDIA DESIGNER): This is chronic and stable. Please continue metformin Assessment & Plan (06/08/2024 11:53 AM INTERACTIVE MULTIMEDIA DESIGNER): A1c 7.6, Accu-Cheks ranging from 177 to 303. We will increase metformin to 1000 mg b.i.d., continue Lantus 30 units q.h.s. with sliding scale insulin t.i.d. a.c. Assessment & Plan (06/04/2024 10:28 PM INTERACTIVE MULTIMEDIA DESIGNER): A1c 7.6, blood sugars ranging from 140-310. Continue Lantus 30 units q.h.s., sliding scale insulin t.i.d., metformin 500 mg b.i.d.. If blood sugars remain elevated we will consider increasing metformin dose Assessment & Plan (06/03/2024 1:40 PM INTERACTIVE MULTIMEDIA DESIGNER): A1c ordered in am. Continue insulin + Metformin currently & Monitor BS. Hyperlipidemia 03/09/2017 Assessment & Plan (07/08/2024 5:34 PM INTERACTIVE MULTIMEDIA DESIGNER): Chronic, stable. Continue atorvastatin Assessment & Plan (06/20/2024 7:28 AM INTERACTIVE MULTIMEDIA DESIGNER): This is chronic and stable. We will continue atorvastatin 80 mg daily Assessment & Plan (06/10/2024 2:57 PM INTERACTIVE MULTIMEDIA DESIGNER): This is chronic and stable. Please continue atorvastatin Resolved Problems Problem Noted Date Diagnosed Date Resolved Date Syncope and collapse 07/08/2024 025 Assessment & Plan (07/08/2024 5:32 PM INTERACTIVE MULTIMEDIA DESIGNER): He experienced an unwitnessed fall. The therapist [...] emergency room for further investigation and care. Encounters Date Type Department Care Team Description 07/08/2024 12:43 PM INTERACTIVE MULTIMEDIA DESIGNER - 07/13/2024 2:20 PM INTERACTIVE MULTIMEDIA DESIGNER [place] [address] Lizet Sotelo MD Lun, Yu, MD Lopez, Manuel Emilio, MD Syncope and collapse (Primary Dx); Sepsis due to Escherichia coli, unspecified whether acute organ dysfunction present (HCC); Benign prostatic hyperplasia, unspecified whether lower urinary tract symptoms present Discharge Disposition: Discharge to SNF 07/08/2024 NH/SNF Visit [facility] [address] [phone] Percy Collins MD Syncope and collapse (Primary Dx); Type 2 diabetes mellitus without complication, with long-term current use of insulin ([facility]) (HCC); Dysphagia as late effect of cerebrovascular accident (CVA); PEG (percutaneous endoscopic gastrostomy) status ([facility]) (HCC); Hyperlipidemia, unspecified hyperlipidemia type 07/06/2024 NH/SNF Visit [facility] [address] [phone] Pat Knight PA Neurogenic orthostatic hypotension (HCC) (Primary Dx); History of stroke; Type 2 diabetes mellitus without complication, with long-term current use of insulin (CMS/HCC) (HCC); Dysphagia as late effect of cerebrovascular accident (CVA); Urinary retention 07/01/2024 Documentation [facility] [address] [phone] Percy Collins MD 06/30/2024 Orders [place] [facility] [address] [place] [phone] Pat Knight PA 06/30/2024 NH/SNF Visit [facility] [address] [phone] Pat Knight PA Dysphagia as late effect of cerebrovascular accident (CVA) (Primary Dx); Type 2 diabetes mellitus without complication, with long-term current use of insulin (CMS/[facility]) (HCC); Urinary retention 06/29/2024 1:00 PM INTERACTIVE MULTIMEDIA DESIGNER - 06/29/2024 11:59 PM INTERACTIVE MULTIMEDIA DESIGNER Hospital Encounter [facility] [address] [place] [address] Dysphagia as late effect of cerebrovascular accident (CVA) Discharge Disposition: Discharge to home or self care 06/29/2024 1:00 PM INTERACTIVE MULTIMEDIA DESIGNER Therapy [facility] Speech Therapy [address] [phone] Edson Talbert, RN APPEALS Dysphagia as late effect of cerebrovascular accident (CVA) (Primary Dx); Oropharyngeal dysphagia 06/28/2024 NH/SNF Visit [facility] Care [address] [phone] Pat Kngiht PA Type 2 diabetes mellitus without complication, with long-term current use of insulin (CMS/HCC) (HCC) (Primary Dx); Neurogenic orthostatic hypotension (HCC); History of stroke 06/23/2024 NH/SNF Visit [facility] [address] [phone] Pat Knight PA Dysphagia as late effect of cerebrovascular accident (CVA) (Primary Dx); Neurogenic orthostatic hypotension (HCC); Urinary retention 06/22/2024 Orders Only [facility] Acute [address] [phone] Pat Knight PA Dysphagia as late effect of cerebrovascular accident (CVA) (Primary Dx) 06/21/2024 NH/SNF Visit [facility] [address] [phone] Pat Knight PA Type 2 diabetes mellitus without complication, with long-term current use of insulin (CMS/HCC) (HCC) (Primary Dx); History of stroke; Neurogenic orthostatic hypotension (HCC) 06/18/2024 NH/SNF Visit [facility] Care [address] [phone] Percy Collins MD Type 2 diabetes mellitus without complication, with long-term current use of insulin (CMS/HCC) (HCC) (Primary Dx); PEG (percutaneous endoscopic gastrostomy) status (CMS/HCC) (HCC); Neurogenic orthostatic hypotension (HCC); History of stroke 06/15/2024 NH/SNF Visit [facility] Care [address] [phone] Percy Collins MD Hyperlipidemia, unspecified hyperlipidemia type (Primary Dx); Neurogenic orthostatic hypotension (HCC); Type 2 diabetes mellitus without complication, with long-term current use of insulin (CMS/HCC) (HCC); PEG (percutaneous endoscopic gastrostomy) status (CMS/HCC) (HCC); Dysphagia as late effect of cerebrovascular accident (CVA) 06/10/2024 NH/SNF Visit [facility] Care [address] [phone] Percy Collins MD Neurogenic orthostatic hypotension (HCC) (Primary Dx); PEG (percutaneous endoscopic gastrostomy) status (CMS/HCC) (HCC); Dysphagia as late effect of cerebrovascular accident (CVA); Hyperlipidemia, unspecified hyperlipidemia type; Type 2 diabetes mellitus without complication, with long-term current use of insulin (CMS/HCC) (HCC); History of stroke 06/09/2024 1:30 PM INTERACTIVE MULTIMEDIA DESIGNER Therapy [facility] OP Speech Therapy [address] [phone] Oksana Lei SLP History of stroke (Primary Dx); Dysphagia as late effect of cerebrovascular accident (CVA); PEG (percutaneous endoscopic gastrostomy) status (CMS/HCC) (HCC) 06/09/2024 9:03 AM INTERACTIVE MULTIMEDIA DESIGNER - 06/09/2024 11:59 PM INTERACTIVE MULTIMEDIA DESIGNER Hospital Encounter [facility] [address] [place] [address] Dysphagia as late effect of cerebrovascular accident (CVA) Discharge Disposition: Discharge to home or self care 06/08/2024 NH/SNF Visit [facility] Medical [address] [phone] Pat Knight PA Type 2 diabetes mellitus without complication, with long-term current use of insulin (CMS/[facility]) ([facility]) (Primary Dx); Dysphagia as late effect of cerebrovascular accident (CVA); History of stroke; Neurogenic orthostatic hypotension (HCC) 06/06/2024 NH/SNF Visit [facility] Medical [address] [phone] Percy Collins MD History of stroke (Primary Dx); Hyperlipidemia, unspecified hyperlipidemia type; Type 2 diabetes mellitus without complication, with long-term current use of insulin (CMS/[facility]) (HCC); PEG (percutaneous endoscopic gastrostomy) status ([facility]) (HCC); Dysphagia as late effect of cerebrovascular accident (CVA); Urinary retention; Smoker; Vitamin D deficiency; Benign prostatic hyperplasia, unspecified whether lower urinary tract symptoms present; Orthostatic hypotension; Slow transit constipation 06/04/2024 Orders Only [facility] Medical [facility] [address] [place] [phone] Tawny Batres NP 06/04/2024 NH/SNF Visit [facility] Medical [address] [phone] Pat Knight PA Dysphagia as late effect of cerebrovascular accident (CVA) (Primary Dx); Type 2 diabetes mellitus without complication, with long-term current use of insulin (CMS/HCC) (HCC); Neurogenic orthostatic hypotension (HCC) 06/03/2024 NH/SNF Visit [facility] [address] [phone] Tawny Batres NP History of stroke (Primary Dx); Urinary retention; Dysphagia as late effect of cerebrovascular accident (CVA); PEG (percutaneous endoscopic gastrostomy) status (CMS/HCC) (HCC); Neurogenic orthostatic hypotension (HCC); Type 2 diabetes mellitus without complication, unspecified whether continuous churn buttermaker insulin use (HCC) from Last 3 Months Surgical History Surgery Date Site/Laterality Comments LAMINECTOMY 06/23/2016 - 06/22/2017 Medical History Medical History Date Comments Anxiety Cancer (CMS/HCC) (HCC) Diabetes mellitus (HCC) Hypertension Dental disease Dizziness Family History Medical History Relation Name Comments Cancer Father Deep Diabetes Father Deep Hearing loss Father Deep Relation Name Status Comments Father Deep Social History Tobacco Use Types Packs/Day Years Used Date Smoking Tobacco: Light Smoker Smokeless Tobacco: Never Tobacco Cessation:Ready to Q uit: Not Asked; Counseling Given: Not Answered [facility] [employer] Answer Date Recorded In the past 12 months has e [employer], gas, oil, or water [employer] threatened to shut off services in your [...] often do you attend chur ch or rastafari services? Never 07/09/2024 Do you belong to any clubs o r organizations such as jain groups, unions, fraternal or athletic groups, or [...] any time in the past 12 [facility], were you homeless or living in a long-term (including now)? No 07/09/2024 Personal Safety Answer Date Recorded Have you ever been in or are you currently in a harmful physical or emotional relationship or is someone making you feel afraid or unsafe? 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 Not on file Not on file Not on libra e Obstetrics History Last Filed Vital Signs Vital Sign Reading Time Taken Comments Blood Pressure 145/105 07/13/2024 11:04 AM INTERACTIVE MULTIMEDIA DESIGNER Pulse 92 07/13/2024 11:04 AM INTERACTIVE MULTIMEDIA DESIGNER Temperature 36.4 C (97.5 F) 07/13/2024 11:04 AM INTERACTIVE MULTIMEDIA DESIGNER Respiratory Rate 18 07/13/2024 11:04 AM INTERACTIVE MULTIMEDIA DESIGNER Oxygen Saturation 98% 07/13/2024 11:04 AM INTERACTIVE MULTIMEDIA DESIGNER Inhaled Oxygen Concentration - - Weight 75.3 kg (166 lb 0.1 oz) 07/12/2024 5:00 A M INTERACTIVE MULTIMEDIA DESIGNER Height 180.3 cm (5' 11 ) 07/08/2024 8:00 PM INTERACTIVE MULTIMEDIA DESIGNER Body Mass Index 23.15 07/08/2024 8:00 PM INTERACTIVE MULTIMEDIA DESIGNER Plan of Treatment Health Maintenance Due Date Last Done Comments Albumin Creatinine Ratio, Urine 1963 Colon Cancer Screening-Colonoscopy 1963 Depression Screening 1963 Hepatitis C Screening 1963 Prostate Cancer Screening-PSA 1963 Dilated Eye Exam 1963 Foot Exam 1963 DTaP/Tdap/Td Vaccine (1 - Tdap) 09/28/1974 Hepatitis B Screening 09/28/1981 Regular Well Visit/Exam 18-64 09/28/1981 Pneumococcal vaccine <65 (2 of 2 - PPSV23) 03/03/2019 01/06/2019 Covid-19 Vaccine (2023-2 5 season) 2024 04/24/2021, 10/15/2020, 09/22/2020, Additional history exists Lipid Panel 10/30/2024 10/31/2023 Hemoglobin A1C 12/03/2024 06/04/2024 eGFR 07/09/2025 07/09/2024, 06/23, 06/30/2024, Additional history exists Zoster Vaccine Completed 02/07/2024, 11/09/2023 Influenza Vaccine Completed 06/01/2024, , 07/13/2019 Procedures Procedure Name Priority Date/Time Associated Diagnosis Comments POCT GLUCOSE DEVICE Routine 07/13/2024 12:00 PM INTERACTIVE MULTIMEDIA DESIGNER POCT GLUCOSE DEVICE Routine 07/13/2024 8 :09 AM INTERACTIVE MULTIMEDIA DESIGNER POCT GLUCOSE DEVICE Routine 07/12/2024 7 :48 PM INTERACTIVE MULTIMEDIA DESIGNER POCT GLUCOSE DEVICE Routine 07/12/2024 4 :59 PM INTERACTIVE MULTIMEDIA DESIGNER POCT GLUCOSE DEVICE Routine 07/12/2024 11:48 AM INTERACTIVE MULTIMEDIA DESIGNER POCT GLUCOSE DEVICE Routine 07/12/2024 7 :39 AM INTERACTIVE MULTIMEDIA DESIGNER POCT GLUCOSE DEVICE Routine 07/11/2024 8 :03 PM INTERACTIVE MULTIMEDIA DESIGNER POCT GLUCOSE DEVICE Routine 07/11/2024 5 :26 PM INTERACTIVE MULTIMEDIA DESIGNER POCT GLUCOSE DEVICE Routine 07/11/2024 1 :26 PM INTERACTIVE MULTIMEDIA DESIGNER POCT GLUCOSE DEVICE Routine 07/11/2024 11:41 AM INTERACTIVE MULTIMEDIA DESIGNER POCT GLUCOSE DEVICE Routine 07/11/2024 8 :04 AM INTERACTIVE MULTIMEDIA DESIGNER POCT GLUCOSE DEVICE Routine 07/10/2024 7 :48 PM INTERACTIVE MULTIMEDIA DESIGNER POCT GLUCOSE DEVICE Routine 07/10/2024 5 :34 PM INTERACTIVE MULTIMEDIA DESIGNER POCT GLUCOSE DEVICE Routine 07/10/2024 1 :08 PM INTERACTIVE MULTIMEDIA DESIGNER POCT GLUCOSE DEVICE Routine 07/10/2024 12:10 PM INTERACTIVE MULTIMEDIA DESIGNER POCT GLUCOSE DEVICE Routine 07/10/2024 8 :04 AM INTERACTIVE MULTIMEDIA DESIGNER POCT GLUCOSE DEVICE Routine 07/09/2024 8 :17 PM INTERACTIVE MULTIMEDIA DESIGNER POCT GLUCOSE DEVICE Routine 07/09/2024 5 :18 PM INTERACTIVE MULTIMEDIA DESIGNER CTA HEAD NECK W WO CONTRAST IP Routine 07/09/2024 3:57 PM INTERACTIVE MULTIMEDIA DESIGNER POCT GLUCOSE DEVICE Routine 07/09/2024 1 :03 PM INTERACTIVE MULTIMEDIA DESIGNER EEG Routine 07/09/2024 12:34 PM INTERACTIVE MULTIMEDIA DESIGNER POCT GLUCOSE DEVICE Routine 07/09/2024 11:29 AM INTERACTIVE MULTIMEDIA DESIGNER POCT GLUCOSE DEVICE Routine 07/09/2024 7 :40 AM INTERACTIVE MULTIMEDIA DESIGNER EGFR Routine 07/09/2024 3:25 AM INTERACTIVE MULTIMEDIA DESIGNER DIFFERENTIAL AUTO Routine 07/09/2024 3:2 5 AM INTERACTIVE MULTIMEDIA DESIGNER BASIC METABOLIC PANEL Routine 07/09/2024 3:25 AM INTERACTIVE MULTIMEDIA DESIGNER CBC WITH AUTO DIFFERENTIAL Routine 07/09/2024 3:25 AM INTERACTIVE MULTIMEDIA DESIGNER POCT GLUCOSE DEVICE Routine 07/08/2024 8 :10 PM INTERACTIVE MULTIMEDIA DESIGNER SEPSIS LACTATE WITH REFLEX Timed 07/08/2024 8:03 PM INTERACTIVE MULTIMEDIA DESIGNER TROPONIN T HIGH-SENSITIVITY 6-HOUR Timed 07/08/2024 8:03 PM INTERACTIVE MULTIMEDIA DESIGNER TROPONIN T HIGH-SENSITIVITY 4-HR Timed 07/08/2024 5:59 PM INTERACTIVE MULTIMEDIA DESIGNER URINALYSIS, MICROSCOPIC ONLY STAT 07/08/2024 4:20 PM INTERACTIVE MULTIMEDIA DESIGNER URINE CULTURE STAT 07/08/2024 4:20 PM INTERACTIVE MULTIMEDIA DESIGNER URINALYSIS AND REFLEX TO MICROSCOPIC AND CULTURE STAT 07/08/2024 4:20 PM INTERACTIVE MULTIMEDIA DESIGNER SEPSIS LACTATE WITH REFLEX Timed 07/08/2024 4:19 PM INTERACTIVE MULTIMEDIA DESIGNER TROPONIN T HIGH-SENSITIVITY 2-HOUR Timed 07/08/2024 3:36 PM INTERACTIVE MULTIMEDIA DESIGNER PROTIME-INR STAT 07/08/2024 1:34 PM INTERACTIVE MULTIMEDIA DESIGNER SEPSIS LACTATE WITH REFLEX STAT 07/08/2024 1:34 PM INTERACTIVE MULTIMEDIA DESIGNER CT HEAD WO CONTRAST ED 07/08/2024 1 :31 PM INTERACTIVE MULTIMEDIA DESIGNER XR CHEST 1 VIEW ED 07/08/2024 1:30 PM INTERACTIVE MULTIMEDIA DESIGNER EGFR STAT 07/08/2024 1:04 PM INTERACTIVE MULTIMEDIA DESIGNER DIFFERENTIAL AUTO STAT 07/08/2024 1:0 4 PM INTERACTIVE MULTIMEDIA DESIGNER TROPONIN T HIGH-SENSITIVITY SERIES (BASELINE, 2HR, 4HR, 6HR) STAT 07/08/2024 1:04 PM INTERACTIVE MULTIMEDIA DESIGNER COMPREHENSIVE METABOLIC PANEL STAT 07/08/2024 1:04 PM INTERACTIVE MULTIMEDIA DESIGNER CBC WITH AUTO DIFFERENTIAL STAT 07/08/2024 1:04 PM INTERACTIVE MULTIMEDIA DESIGNER ECG 12-LEAD STAT 07/08/2024 12:50 PM INTERACTIVE MULTIMEDIA DESIGNER EGFR Routine 06/30/2024 5:40 AM INTERACTIVE MULTIMEDIA DESIGNER COMPREHENSIVE METABOLIC PANEL Routine 06/30/2024 5:40 AM INTERACTIVE MULTIMEDIA DESIGNER CBC WITHOUT DIFFERENTIAL Routine 06/30/2024 5:40 AM INTERACTIVE MULTIMEDIA DESIGNER FL MODIFIED BARIUM SWALLOW W VIDEO Schedule Routine, Read Routine (OP Routine) 06/29/2024 2:01 PM INTERACTIVE MULTIMEDIA DESIGNER Dysphagia as late effect of cerebrovascular accident (CVA) CBC WITHOUT DIFFERENTIAL Routine 06/14/2024 5:44 AM INTERACTIVE MULTIMEDIA DESIGNER FL MODIFIED BARIUM SWALLOW W VIDEO Schedule Routine, Read Routine (OP Routine) 06/09/2024 2:28 PM INTERACTIVE MULTIMEDIA DESIGNER Dysphagia as late effect of cerebrovascular accident (CVA) EGFR Routine 06/08/2024 8:31 AM INTERACTIVE MULTIMEDIA DESIGNER COMPREHENSIVE METABOLIC PANEL Routine 06/08/2024 8:31 AM INTERACTIVE MULTIMEDIA DESIGNER CBC WITHOUT DIFFERENTIAL Routine 06/08/2024 8:31 AM INTERACTIVE MULTIMEDIA DESIGNER EGFR Routine 06/04/2024 4:21 PM INTERACTIVE MULTIMEDIA DESIGNER COMPREHENSIVE METABOLIC PANEL Routine 06/04/2024 4:21 PM INTERACTIVE MULTIMEDIA DESIGNER MAGNESIUM Routine 06/04/2024 4:21 PM INTERACTIVE MULTIMEDIA DESIGNER PHOSPHORUS Routine 06/04/2024 4:21 PM INTERACTIVE MULTIMEDIA DESIGNER HEMOGLOBIN A1C Routine 06/04/2024 4:21 PM INTERACTIVE MULTIMEDIA DESIGNER CBC WITHOUT DIFFERENTIAL Routine 06/04/2024 4:21 PM INTERACTIVE MULTIMEDIA DESIGNER from Last 3 Months Results * POCT glucose (07/13/2024 12:00 PM INTERACTIVE MULTIMEDIA DESIGNER) Glucose, POC 172 70 - 199 mg/dL Glucose comment 1 Use This Result [facility] Blood 07/13/2024 12:0 0 PM INTERACTIVE MULTIMEDIA DESIGNER 07/13/2024 12:00 PM INTERACTIVE MULTIMEDIA DESIGNER us Vignesh Lopez MD LAB POCT ORDERABLES - DEV ICE Final Result Performing Organization Address City/[facility] Co de Phone Number [address] [place] [address] * (ABNORMAL) POCT glucose (07/13/2024 8:09 AM INTERACTIVE MULTIMEDIA DESIGNER) Glucose, POC 213(H) 70 - 199 mg/dL Glucose comment 1 Use This Result [facility] Glucose comment 2 RN/MD Notified [facility] Blood 07/13/2024 8:09 AM INTERACTIVE MULTIMEDIA DESIGNER 07/13/2024 8:09 AM INTERACTIVE MULTIMEDIA DESIGNER us Vignesh Lopez MD LAB POCT ORDERABLES - DEV ICE Final Result [address] [place] [address] * (ABNORMAL) POCT glucose (07/12/2024 7:48 PM INTERACTIVE MULTIMEDIA DESIGNER) Glucose, POC 326(H) 70 - 199 mg/dL Glucose comment 1 Use This Result [facility] Glucose comment 2 RN/MD Notified [facility] Blood 07/12/2024 7:48 PM INTERACTIVE MULTIMEDIA DESIGNER 07/12/2024 7:48 PM INTERACTIVE MULTIMEDIA DESIGNER us Leilani Resendiz MD LAB POCT ORDERABLES - DEVICE Fin al Result Performing Organization Address [facility] Co de Phone Number KARL [address] [place] [address] * (ABNORMAL) POCT glucose (07/12/2024 4:59 PM INTERACTIVE MULTIMEDIA DESIGNER) Glucose, POC 217(H) 70 - 199 mg/dL Blood 07/12/2024 4:59 PM INTERACTIVE MULTIMEDIA DESIGNER 07/12/2024 4:59 PM INTERACTIVE MULTIMEDIA DESIGNER us Leilani Resendiz MD LAB POCT ORDERABLES - DEVICE Fin al Result Performing Organization Address [facility] de Phone Number KARL [address] [place] [address] * (ABNORMAL) POCT glucose (07/12/2024 11:48 AM INTERACTIVE MULTIMEDIA DESIGNER) Glucose, POC 317(H) 70 - 199 mg/dL Blood 07/12/2024 11:4 8 AM INTERACTIVE MULTIMEDIA DESIGNER 07/12/2024 11:48 AM INTERACTIVE MULTIMEDIA DESIGNER Leilani Resendiz MD LAB POCT ORDERABLES - DEVICE Fin al Result Performing Organization Address [facility] Co de Phone Number [address] [place] [address] * (ABNORMAL) POCT glucose (07/12/2024 7:39 AM INTERACTIVE MULTIMEDIA DESIGNER) Glucose, POC 224(H) 70 - 199 mg/dL Blood 07/12/2024 7:39 AM INTERACTIVE MULTIMEDIA DESIGNER 07/12/2024 7:39 AM INTERACTIVE MULTIMEDIA DESIGNER us Leilani Resendiz MD LAB POCT ORDERABLES - DEVICE Fin al Result Performing Organization Address [facility] Co de Phone Number [address] [address] * (ABNORMAL) POCT glucose (07/11/2024 8:03 PM INTERACTIVE MULTIMEDIA DESIGNER) Glucose, POC 326(H) 70 - 199 mg/dL Glucose comment 1 Use This Result [facility] Blood 07/11/2024 8:03 PM INTERACTIVE MULTIMEDIA DESIGNER 07/11/2024 8:03 PM INTERACTIVE MULTIMEDIA DESIGNER Leilani Resenidz MD LAB POCT ORDERABLES - DEVICE Fin al Result Performing Organization Address [facility] Co de Phone Number [address] [address] * (ABNORMAL) POCT glucose (07/11/2024 5:26 PM INTERACTIVE MULTIMEDIA DESIGNER) Glucose, POC 325(H) 70 - 199 mg/dL Blood 07/11/2024 5:26 PM INTERACTIVE MULTIMEDIA DESIGNER 07/11/2024 5:26 PM INTERACTIVE MULTIMEDIA DESIGNER Leilani Resendiz MD LAB POCT ORDERABLES - DEVICE Fin al Result Performing Organization Address [facility] Co de Phone Number [address] [address] * (ABNORMAL) POCT glucose (07/11/2024 1:26 PM INTERACTIVE MULTIMEDIA DESIGNER) Glucose, POC 283(H) 70 - 199 mg/dL Blood 07/11/2024 1:26 PM INTERACTIVE MULTIMEDIA DESIGNER 07/11/2024 1:26 PM INTERACTIVE MULTIMEDIA DESIGNER Leilani Resendiz MD LAB POCT ORDERABLES - DEVICE Fin al Result Performing Organization Address [facility] Co de Phone Number [address] [address] * (ABNORMAL) POCT glucose (07/11/2024 11:41 AM INTERACTIVE MULTIMEDIA DESIGNER) Glucose, POC 366(H) 70 - 199 mg/dL Glucose comment 1 Use This Result [facility] Glucose comment 2 RN/MD Notified [facility] Blood 07/11/2024 11:4 1 AM INTERACTIVE MULTIMEDIA DESIGNER 07/11/2024 11:41 AM INTERACTIVE MULTIMEDIA DESIGNER Leilani Resendiz MD LAB POCT ORDERABLES - DEVICE Fin al Result Performing Organization Address [facility] Co de Phone Number KARL [address] [place] [address] * (ABNORMAL) POCT glucose (07/11/2024 8:04 AM INTERACTIVE MULTIMEDIA DESIGNER) Glucose, POC 264(H) 70 - 199 mg/dL Blood 07/11/2024 8:04 AM INTERACTIVE MULTIMEDIA DESIGNER 07/11/2024 8:04 AM INTERACTIVE MULTIMEDIA DESIGNER Leilani Resendiz MD LAB POCT ORDERABLES - DEVICE Fin al Result Performing Organization Address [facility] Co de Phone Number [address] [place] [address] * (ABNORMAL) POCT glucose (07/10/2024 7:48 PM INTERACTIVE MULTIMEDIA DESIGNER) Glucose, POC 281(H) 70 - 199 mg/dL Glucose comment 1 Use This Result [facility] Blood 07/10/2024 7:48 PM INTERACTIVE MULTIMEDIA DESIGNER 07/10/2024 7:48 PM INTERACTIVE MULTIMEDIA DESIGNER Leilani Resendiz MD LAB POCT ORDERABLES - DEVICE Fin al Result Performing Organization Address [facility] Co de Phone Number [address] [place] [address] * (ABNORMAL) POCT glucose (07/10/2024 5:34 PM INTERACTIVE MULTIMEDIA DESIGNER) Glucose, POC 366(H) 70 - 199 mg/dL Blood 07/10/2024 5:34 PM INTERACTIVE MULTIMEDIA DESIGNER 07/10/2024 5:34 PM INTERACTIVE MULTIMEDIA DESIGNER Leilani Resendiz MD LAB POCT ORDERABLES - DEVICE Fin al Result Performing Organization Address [facility] Co de Phone Number KARL [address] [place] [address] * (ABNORMAL) POCT glucose (07/10/2024 1:08 PM INTERACTIVE MULTIMEDIA DESIGNER) Glucose, POC 294(H) 70 - 199 mg/dL Blood 07/10/2024 1:08 PM INTERACTIVE MULTIMEDIA DESIGNER 07/10/2024 1:08 PM INTERACTIVE MULTIMEDIA DESIGNER Leilani Resendiz MD LAB POCT ORDERABLES - DEVICE Fin al Result Performing Organization Address [facility] de Phone Number KARL [address] [place] [address] * (ABNORMAL) POCT glucose (07/10/2024 12:10 PM INTERACTIVE MULTIMEDIA DESIGNER) Glucose, POC 332(H) 70 - 199 mg/dL Glucose comment 1 RN/MD Notified [facility] Blood 07/10/2024 12:1 0 PM INTERACTIVE MULTIMEDIA DESIGNER 07/10/2024 12:10 PM INTERACTIVE MULTIMEDIA DESIGNER Leilani Resendiz MD LAB POCT ORDERABLES - DEVICE Fin al Result Performing Organization Address [facility] Co de Phone Number [address] [place] [address] * (ABNORMAL) POCT glucose (07/10/2024 8:04 AM INTERACTIVE MULTIMEDIA DESIGNER) Glucose, POC 269(H) 70 - 199 mg/dL Blood 07/10/2024 8:04 AM INTERACTIVE MULTIMEDIA DESIGNER 07/10/2024 8:04 AM INTERACTIVE MULTIMEDIA DESIGNER us Leilani Resendiz MD LAB POCT ORDERABLES - DEVICE Fin al Result Performing Organization Address City/[facility] Co de Phone Number [address] [place] [address] * (ABNORMAL) POCT glucose (07/09/2024 8:17 PM INTERACTIVE MULTIMEDIA DESIGNER) Glucose, POC 387(H) 70 - 199 mg/dL Blood 07/09/2024 8:17 PM INTERACTIVE MULTIMEDIA DESIGNER 07/09/2024 8:17 PM INTERACTIVE MULTIMEDIA DESIGNER Leilani Resendiz MD LAB POCT ORDERABLES - DEVICE Fin al Result Performing Organization Address [facility] Co de Phone Number [address] [place] [address] * (ABNORMAL) POCT glucose (07/09/2024 5:18 PM INTERACTIVE MULTIMEDIA DESIGNER) Glucose, POC 275(H) 70 - 199 mg/dL Glucose comment 1 Use This Result [facility] Blood 07/09/2024 5:18 PM INTERACTIVE MULTIMEDIA DESIGNER 07/09/2024 5:18 PM INTERACTIVE MULTIMEDIA DESIGNER Leilani Resendiz MD LAB POCT ORDERABLES - DEVICE Fin al Result Performing Organization Address [facility] de Phone Number [address] [place] [address] * CTA Head Neck W WO Contrast (07/09/2024 3:57 PM INTERACTIVE MULTIMEDIA DESIGNER) Anatomical Region Laterality Modality Head and Neck N/A Computed Tomogra phy 07/09/2024 4:24 PM INTERACTIVE MULTIMEDIA DESIGNER Narrative 07/09/2024 8:21 PM INTERACTIVE MULTIMEDIA DESIGNER EXAM DESCRIPTION: CTA HEAD NECK W WO [...] OTHER: No other significant abnormality. INTRACRANIAL VESSELS [place]: The cervical internal carotid arteries [...] 8:21 PM - Electronically signed by Sanjuanita CEBALLOS T: Report ID: [id number] Reading Location: [id number] Procedure Note Colette Cleveland MD - 07/09/2024 [...] OTHER: No other significant abnormality. INTRACRANIAL VESSELS [place]: The cervical internal carotid arteries [...] by Sanjuanita Cleveland M.D. T: Report ID: [id number] Reading Location: [place] [address] Leilani Resendiz MD IMG CT PROCEDURES Final Result * (ABNORMAL) POCT glucose (07/09/2024 1:03 PM INTERACTIVE MULTIMEDIA DESIGNER) Glucose, POC 215(H) 70 - 199 mg/dL Glucose comment 1 Use This Result [facility] [place] Blood 07/09/2024 1:03 PM INTERACTIVE MULTIMEDIA DESIGNER 07/09/2024 1:03 PM INTERACTIVE MULTIMEDIA DESIGNER us Leilani Resendiz MD LAB POCT ORDERABLES - DEVICE Fin al Result [facility] [address] [facility] [place] [address] * EEG (07/09/2024 12:34 PM INTERACTIVE MULTIMEDIA DESIGNER) Anatomical Region Laterality Modality Other Narrative 07/09/2024 12:46 PM INTERACTIVE MULTIMEDIA DESIGNER Hilario Gilmore MD 07/09/2024 12:46 PM Reason [...] * (ABNORMAL) POCT glucose (07/09/2024 11:29 AM INTERACTIVE MULTIMEDIA DESIGNER) Glucose, POC 284(H) 70 - 199 mg/dL Glucose comment 1 Use This Result [facility] Blood 07/09/2024 11:2 9 AM INTERACTIVE MULTIMEDIA DESIGNER 07/09/2024 11:29 AM INTERACTIVE MULTIMEDIA DESIGNER us Leilani Resendiz MD LAB POCT ORDERABLES - DEVICE Fin al Result Performing Organization Address [facility] Co de Phone Number KARL [address] [place] [place] [address] * POCT glucose (07/09/2024 7:40 AM INTERACTIVE MULTIMEDIA DESIGNER) Glucose, POC 147 70 - 199 mg/dL Glucose comment 1 Use This Result [facility] Blood 07/09/2024 7:40 AM INTERACTIVE MULTIMEDIA DESIGNER 07/09/2024 7:40 AM INTERACTIVE MULTIMEDIA DESIGNER Leilani Resendiz MD LAB POCT ORDERABLES - DEVICE Fin al Result Performing Organization Address [facility] Co de Phone Number [address] [place] [address] * eGFR (07/09/2024 3:25 AM INTERACTIVE MULTIMEDIA DESIGNER) Pathologist [facility] eGFR >90 >=60 mL/min/1. 73 m2 Comment: [...] last reviewed 2021. Blood 07/09/2024 3:25 AM INTERACTIVE MULTIMEDIA DESIGNER 07/09/2024 3:29 AM INTERACTIVE MULTIMEDIA DESIGNER Leilani Resendiz MD LAB BLOOD ORDERABLES Final Resul t [facility] [address] [facility] Department of Laboratories [place], [place] [id number] * (ABNORMAL) Differential, auto (07/09/2024 3:25 AM INTERACTIVE MULTIMEDIA DESIGNER) Neutrophil abs 5.5 1.5 - 6.5 K/cumm Imm gran abs 0.0 0.0 - 0.1 K/cumm [facility] Lymphocyte abs 1.6 0.8 - 3.3 K/cumm [facility] Monocyte abs 0.9(H) 0.2 - 0.8 K/cumm [facility] Eosinophil abs 0.3 0.0 - 0.5 K/cumm [facility] Basophil abs 0.1 0.0 - 0.1 K/cumm [facility] Neutrophil pct 65.0 % [facility] Comment: Interpretive Data Percent cell count reference ranges are not reported, since discordance with absolute values may lead to misinterpretation of CBC data. Current Interpretive Data was last revised on 2017. Imm gran pct 0.5 % [facility] Comment: Interpretive Data Percent cell count reference ranges are not reported, since discordance with absolute values may lead to misinterpretation of CBC data. Current Interpretive Data was last revised on 2017. Lymphocyte pct 18.4 % [facility] Comment: Interpretive Data Percent cell count reference ranges are not reported, since discordance with absolute values may lead to misinterpretation of CBC data. Current Interpretive Data was last revised on 2017. Monocyte pct 11.1 % [facility] Comment: Interpretive Data Percent cell count reference ranges are not reported, since discordance with absolute values may lead to misinterpretation of CBC data. Current Interpretive Data was last revised on 2017. Eosinophil pct 3.8 % [facility] Comment: Interpretive Data Percent cell count reference ranges are not reported, since discordance with absolute values may lead to misinterpretation of CBC data. Current Interpretive Data was last revised on 2017. Basophil pct 1.2 % [facility] Comment: Interpretive Data Percent cell count reference ranges are not reported, since discordance with absolute values may lead to misinterpretation of CBC data. Current Interpretive Data was last revised on 2017. Blood 07/09/2024 3:25 AM INTERACTIVE MULTIMEDIA DESIGNER 07/09/2024 3:29 AM INTERACTIVE MULTIMEDIA DESIGNER us Leilani Resendiz MD LAB BLOOD ORDERABLES Final Resul t [facility] [address] [facility] Department [place] [address] * (ABNORMAL) CBC with auto differential (07/09/2024 3:25 AM INTERACTIVE MULTIMEDIA DESIGNER) WBC 8.5 3.8 - 9.9 K/cumm Hgb 14.1 13.0 - 17.5 g/dL [facility] Hct 43.7 38.9 - 50.3 % [facility] Plt 214 150 - 400 K/cumm [facility] MPV 11.7 9.1 - 12.3 fL [facility] RBC 4.59 4.30 - 5.80 M/cumm [facility] MCV 95.2 81.3 - 96.4 fL [facility] MCH 30.7 27.1 - 33.3 pg [facility] MCHC 32.3 32.3 - 35.7 g/dL [facility] RDW CV 13.9 11.1 - 14.9 % [facility] RDW SD 48.3(H) 35.7 - 48.1 fL [facility] NRBC abs 0.00 0.00 - 0.01 K/cumm [facility] Blood 07/09/2024 3:25 AM INTERACTIVE MULTIMEDIA DESIGNER 07/09/2024 3:29 AM INTERACTIVE MULTIMEDIA DESIGNER Leilani Resendiz MD LAB BLOOD ORDERABLES Final Resul t Performing Organization Address [facility] de Phone Number [facility] [address] [facility] Department [place] [address] * Basic metabolic panel (07/09/2024 3:25 AM INTERACTIVE MULTIMEDIA DESIGNER) Sodium 138 135 - 145 mmol/L Potassium, pl 4.1 3.3 - 4.9 mmol/L [facility] Chloride 102 97 - 110 mmol/L [facility] CO2 26 22 - 32 mmol/L [facility] Anion gap 10 2 - 15 mmol/L [facility] BUN 14 6 - 25 mg/dL [facility] Creatinine 0.81 0.80 - 1.30 mg/dL [facility] Glucose 152 70 - 199 mg/dL [facility] Comment: Interpretive Data Fasting glucose >/= 126 [...] classification and Diagnosis of Diabetes Diabetes Care 2021; 46: [id number]. Current interpretive data was last revised 2022. Calcium 9.8 8.5 - 10.3 mg/dL [facility] Blood 07/09/2024 3:25 AM INTERACTIVE MULTIMEDIA DESIGNER 07/09/2024 3:29 AM INTERACTIVE MULTIMEDIA DESIGNER Leilani Resendiz MD LAB BLOOD ORDERABLES Final Resul t Performing Organization Address [facility]/ZIP Co de Phone Number [address] [address] * POCT glucose (07/08/2024 8:10 PM INTERACTIVE MULTIMEDIA DESIGNER) [facility] Glucose, POC 96 70 - 199 mg/dL Glucose comment 1 RN/MD Notified [facility] Blood 07/08/2024 8:10 PM INTERACTIVE MULTIMEDIA DESIGNER 07/08/2024 8:10 PM INTERACTIVE MULTIMEDIA DESIGNER us Leilani Resendiz MD LAB POCT ORDERABLES - DEVICE Fin al Result Performing Organization Address [facility] Co de Phone Number [address] [address] * Troponin T high-sensitivity 6-hour (07/08/2024 8:03 PM INTERACTIVE MULTIMEDIA DESIGNER) [facility] Trop T hs 13 <=22 ng/L Comment: Interpretive Data For further hscTnT resources including the diagnostic algorithm and an aid in interpretation, copy and paste this link: https://nrl.testcatalog.org/show/hsTrop Current Interpretive Data last revised 2020. Trop T hs delta -3 ng/L [facility] Trop T hs interp Insignificant [facility] Blood 07/08/2024 8:03 PM INTERACTIVE MULTIMEDIA DESIGNER 07/08/2024 8:07 PM INTERACTIVE MULTIMEDIA DESIGNER us Lorraine Dumont MD LAB BLOOD ORDERABLES Final Resu lt Performing Organization Address [facility]/ZIP Co de Phone Number [address] [address] * Sepsis Lactate w/ Reflex (07/08/2024 8:03 PM INTERACTIVE MULTIMEDIA DESIGNER) [facility] Sepsis Lactate 1.4 0.7 - 2.0 mmol/L Blood 07/08/2024 8:03 PM INTERACTIVE MULTIMEDIA DESIGNER 07/08/2024 8:07 PM INTERACTIVE MULTIMEDIA DESIGNER Lizet Sotelo MD LAB BLOOD ORDERABLES F inal Result Performing Organization Address [facility] de Phone Number [facility] [address] [place] [address] * Troponin T high-sensitivity 4-hour (07/08/2024 5:59 PM INTERACTIVE MULTIMEDIA DESIGNER) Trop T hs 11 <=22 ng/L Comment: Interpretive Data For further hscTnT resources including the diagnostic algorithm and an aid in interpretation, copy and paste this link: https://nrl.testcatalog.org/show/hsTrop Current Interpretive Data last revised 2020. Trop T hs delta -5 ng/L [facility] Trop T hs interp Equivocal [facility] Blood 07/08/2024 5:59 PM INTERACTIVE MULTIMEDIA DESIGNER 07/08/2024 6:01 PM INTERACTIVE MULTIMEDIA DESIGNER us Rehab Tim MATHIAS LAB BLOOD ORDERABLES Final Resu lt Performing Organization Address [facility] de Phone Number [facility] [address] [place] [address] * (ABNORMAL) Urinalysis reflex to microscopic and culture Urine, in and out catheter (07/08/2024 4:20PM INTERACTIVE MULTIMEDIA DESIGNER) Color, ur Yellow Yellow Clarity, ur Cloudy(A) Clear [facility] Specific gravity, ur 1.018 1.003 - 1.030 [facility] pH, urine 6.0 [facility] Comment: Interpretive Data U rine pH is affected by diet, medications, systemic acid-base disturbances, and renal tubular function. pH may affect urinary stone formation. For example, urine pH below 6.0 may help reduce the tendency for calcium phosphate stones and pH greater than 6.0 may reduce the tendency for uric acid stone formation. Source: [facility] [place] Current Interpretive Data was last revised on 2017 Protein, ur ql 1+(A) Negative [facility] Glucose, ur ql Negative Negative [facility] Ketones, ur Negative Negative [facility] Bilirubin, ur Negative Negative [facility] Blood, ur Negative Negative [facility] Urobilinogen, ur 2.0(A) <2.0 mg/dL [facility] Nitrite, ur Positive(A) Negative [facility] Leukocyte esterase, ur 4+(A) Negative [facility] UA reflex comment Reflex to microscopic UA will be performed. [facility] Urine, in and out catheter 07/08/2024 4:20 PM INTERACTIVE MULTIMEDIA DESIGNER 07/08/2024 4:25 PM INTERACTIVE MULTIMEDIA DESIGNER Lizet Sotelo MD LAB MICROBIOLOGY - GEN ERAL ORDERABLES Final Result Performing Organization Address [facility] de Phone Number [address] [address] * (ABNORMAL) Urinalysis, microscopic only (07/08/2024 4:20 PM INTERACTIVE MULTIMEDIA DESIGNER) WBC, ur >50(A) 0 - 5 /HPF RBC, ur 6-10(A) 0 - 2 /HPF [facility] Bacteria, ur 4+(A) [facility] Mucous, ur Present(A) [facility] Culture Reflex Comment Reflex to urine culture will be performed. [facility] Urine, in and out catheter 07/08/2024 4:20 PM INTERACTIVE MULTIMEDIA DESIGNER 07/08/2024 4:25 PM INTERACTIVE MULTIMEDIA DESIGNER Lizet Sotelo MD LAB URINE ORDERABLES F inal Result Performing Organization Address [facility] de Phone Number [address] [address] * (ABNORMAL) Urine culture Urine, in and out catheter (07/08/2024 4:20 PM INTERACTIVE MULTIMEDIA DESIGNER) Report Final Report: Greater than or equal to 100,000 colonies/mL of Klebsiella pneumoniae Greater than or equal to 100,000 colonies/mL of Klebsiella pneumoniae #2 (.) Comment:Testing performed by : [facility], [address] [facility], [place]., [address] Organism KLEBSIELLA PNEUMONIAE [facility] Organism KLEBSIELLA PNEUMONIAE [facility] Urine, in and out catheter 07/08/2024 4:20 PM INTERACTIVE MULTIMEDIA DESIGNER 07/08/2024 8:01 PM INTERACTIVE MULTIMEDIA DESIGNER Narrative KARL - 07/10/2024 3:41 PM INTERACTIVE MULTIMEDIA DESIGNER Urine culture reflexed based upon urinalysis results. Testing performed by [facility] ([phone]) Organism Antibiotic Method Susceptibility Klebsiella pneumoniae Ampicillin [...] INTERPRETATION Susceptible Klebsiella pneumoniae Cefdinir INTERPRETATION Susceptible Lizet Sotelo MD LAB MICROBIOLOGY - GEN ERAL ORDERABLES Final Result Performing Organization Address City/[facility]/ZIP Co de Phone Number [address] [place] [employer] [place] [address] * (ABNORMAL) Sepsis Lactate w/ Reflex (07/08/2024 4:19 PM INTERACTIVE MULTIMEDIA DESIGNER) Sepsis Lactate 3.2(C) 0.7 - 2.0 mmol/L Comment:Critical Result call ed to and read back by [id number], DATE: 2024-07-08 16:56:38 BY: [id number] Blood 07/08/2024 4:19 PM INTERACTIVE MULTIMEDIA DESIGNER 07/08/2024 4:25 PM INTERACTIVE MULTIMEDIA DESIGNER Lizet Sotelo MD LAB BLOOD ORDERABLES F inal Result [address] [place] [employer] [place] [address] * Troponin T high-sensitivity 2-hour (07/08/2024 3:36 PM INTERACTIVE MULTIMEDIA DESIGNER) Pathologist [facility] [place] Trop T hs 14 <=22 ng/L Comment: Interpretive Data For further hscTnT resources including the diagnostic algorithm and an aid in interpretation, copy and paste this link: https://nrl.testcatalog.org/show/hsTrop Current Interpretive Data last revised 2020. Trop T hs delta -2 ng/L KARL Trop T hs interp Insignificant KARL Blood 07/08/2024 3:36 PM INTERACTIVE MULTIMEDIA DESIGNER 07/08/2024 3:41 PM INTERACTIVE MULTIMEDIA DESIGNER Lorraine Dumont MD LAB BLOOD ORDERABLES Final Resu lt Performing Organization Address [facility]/ZIP Co de Phone Number [address] [employer] [address] * (ABNORMAL) Sepsis Lactate w/ Reflex (07/08/2024 1:34 PM INTERACTIVE MULTIMEDIA DESIGNER) [facility] Sepsis Lactate 3.5(C) 0.7 - 2.0 mmol/L Comment:Critical Result call ed to and read back by [id number], DATE: 2024-07-08 14:05:44 BY: [id number] Blood 07/08/2024 1:34 PM INTERACTIVE MULTIMEDIA DESIGNER 07/08/2024 1:36 PM INTERACTIVE MULTIMEDIA DESIGNER Lizet Sotelo MD LAB BLOOD ORDERABLES F inal Result Performing Organization Address City/[facility]/ZIP Co de Phone Number [address] [place] [address] * Protime-INR (07/08/2024 1:34 PM INTERACTIVE MULTIMEDIA DESIGNER) [facility] PT 12.9 12.0 - 14.6 sec INR 1.0 0.9 - 1.2 KARL Comment: Ref Range High Interpretive data Oral anticoagulant therapeutic ranges: Venous thromboembolism prophylaxis or treatment: 2.0-3.0 CARDIOLOGY Standard range: 2.0-3.0 High-intensity range: 2.5-3.5 Refer to indication-specific guidelines for appropriate target ranges for prosthetic heart valve replacement. Current interpretive data was last revised on 2019. Blood 07/08/2024 1:34 PM INTERACTIVE MULTIMEDIA DESIGNER 07/08/2024 1:36 PM INTERACTIVE MULTIMEDIA DESIGNER us Lizet Sotelo MD LAB BLOOD ORDERABLES F inal Result KARL [address] [facility] [place] [address] * CT Head WO Contrast (07/08/2024 1:31 PM INTERACTIVE MULTIMEDIA DESIGNER) Anatomical Region Laterality Modality Head and Neck N/A Computed Tomogra phy 07/08/2024 1:41 PM INTERACTIVE MULTIMEDIA DESIGNER Narrative 07/08/2024 1:44 PM INTERACTIVE MULTIMEDIA DESIGNER EXAM DESCRIPTION: CT HEAD WO CONTRAST REASON [...] well-developed and well aerated. Debris in the sueho-pofspkr-kpkr-left EACs. ORBITS: No acute abnormality. Right [place] ocular lens replaced. OTHER: No other significant abnormality. IMPRESSION: No acute intracranial process with chronic findings as above. THIS IS AN ELECTRONICALLY VERIFIED FINAL REPORT 07/08/2024 1:44 PM - Electronically signed by Mike OLIVEIRA T: Report ID: [id number] Reading Location: [id number] Procedure Note Mike Madera MD - 07/08/2024 [...] portions of CT soft tissue neck with fxckotzv69/06/2023. FINDINGS: BRAIN: No acute intra-axial hemorrhage. No [...] cells well-developed andwell aerated. Debris in the qholx-vxbkyvx-fjwz-left EACs. ORBITS: No acute abnormality. Right tu[place] ocular lens replaced. OTHER: No other significant abnormality. IMPRESSION: No acute intracranial process with chronic findings as above. THIS IS AN ELECTRONICALLY VERIFIED FINAL REPORT 07/08/2024 1:44 PM - Electronically signed by Mike OLIVEIRA T: Report ID: [id number] Reading Location: [id number] Lizet Sotelo MD IMG CT PROCEDURES Di l Result * XR Chest 1 Vw Portable (if patient condition/safety warrant portable) (07/08/2024 1:30 PM INTERACTIVE MULTIMEDIA DESIGNER) Anatomical Region Laterality Modality Body, Chest N/A Computed Radiogr aphy 07/08/2024 1:44 PM INTERACTIVE MULTIMEDIA DESIGNER Narrative 07/08/2024 1:45 PM INTERACTIVE MULTIMEDIA DESIGNER EXAM DESCRIPTION: XR CHEST 1 VIEW REASON [...] signed by Mike OLIVEIRA T: Report ID: [id number] Reading Location: [id number] Procedure Note Mike Madera MD - 07/08/2024 [...] signed by Mike OLIVEIRA T: Report ID: [id number] Reading Location: [id number] us Lizet Sotelo MD IMG XR PROCEDURES Di l Result * Troponin T high-sensitivity series (baseline, 2hr, 4hr, 6hr) (07/08/2024 1:04 PM INTERACTIVE MULTIMEDIA DESIGNER) Trop T hs 16 <=22 ng/L Comment: Interpretive Data For further hscTnT resources including the diagnostic algorithm and an aid in interpretation, copy and paste this link: https://nrl.testcatalog.org/show/hsTrop Current Interpretive Data last revised 2020. Blood 07/08/2024 1:04 PM INTERACTIVE MULTIMEDIA DESIGNER 07/08/2024 1:07 PM INTERACTIVE MULTIMEDIA DESIGNER us Lizet Sotelo MD LAB BLOOD ORDERABLES F inal Result [facility] [address] [facility] [place] [address] * eGFR (07/08/2024 1:04 PM INTERACTIVE MULTIMEDIA DESIGNER) eGFR >90 >=60 mL/min/1. 73 m2 Comment: [...] of Race in Diagnosing Kidney Disease, JASN 2021). The CKD-EPI equation should not be used for patients with unstable renal function and has not been validated in children and those over 70. Current interpretive data was last reviewed 2021. Blood 07/08/2024 1:04 PM INTERACTIVE MULTIMEDIA DESIGNER 07/08/2024 1:07 PM INTERACTIVE MULTIMEDIA DESIGNER us Rehab Tim MATHIAS LAB BLOOD ORDERABLES Final Resu lt [facility] [address] [facility] [place] [address] * (ABNORMAL) Differential, auto (07/08/2024 1:04 PM INTERACTIVE MULTIMEDIA DESIGNER) Neutrophil abs 10.0(H) 1.5 - 6.5 K/cumm Imm gran abs 0.1 0.0 - 0.1 K/cumm [facility] Lymphocyte abs 1.3 0.8 - 3.3 K/cumm [facility] Monocyte abs 1.0(H) 0.2 - 0.8 K/cumm [facility] Eosinophil abs 0.2 0.0 - 0.5 K/cumm [facility] Basophil abs 0.1 0.0 - 0.1 K/cumm [facility] Neutrophil pct 79.9 % [facility] Comment: Interpretive Data Percent cell count reference ranges are not reported, since discordance with absolute values may lead to misinterpretation of CBC data. Current Interpretive Data was last revised on 2017. Imm gran pct 0.4 % [facility] Comment: Interpretive Data Percent cell count reference ranges are not reported, since discordance with absolute values may lead to misinterpretation of CBC data. Current Interpretive Data was last revised on 2017. Lymphocyte pct 10.1 % [facility] Comment: Interpretive Data Percent cell count reference ranges are not reported, since discordance with absolute values may lead to misinterpretation of CBC data. Current Interpretive Data was last revised on 2017. Monocyte pct 7.7 % [facility] Comment: Interpretive Data Percent cell count reference ranges are not reported, since discordance with absolute values may lead to misinterpretation of CBC data. Current Interpretive Data was last revised on 2017. Eosinophil pct 1.3 % [facility] Comment: Interpretive Data Percent cell count reference ranges are not reported, since discordance with absolute values may lead to misinterpretation of CBC data. Current Interpretive Data was last revised on 2017. Basophil pct 0.6 % [facility] Comment: Interpretive Data Percent cell count reference ranges are not reported, since discordance with absolute values may lead to misinterpretation of CBC data. Current Interpretive Data was last revised on 2017. Blood 07/08/2024 1:04 PM INTERACTIVE MULTIMEDIA DESIGNER 07/08/2024 1:07 PM INTERACTIVE MULTIMEDIA DESIGNER us Lorraine Dumont MD LAB BLOOD ORDERABLES Final Resu lt Performing Organization Address City/[facility] Co de Phone Number [facility] [address] [facility] Department [place] [address] * (ABNORMAL) CBC with auto differential (07/08/2024 1:04 PM INTERACTIVE MULTIMEDIA DESIGNER) WBC 12.5(H) 3.8 - 9.9 K/cumm Hgb 15.0 13.0 - 17.5 g/dL [facility] Hct 44.9 38.9 - 50.3 % [facility] Plt 213 150 - 400 K/cumm [facility] MPV 11.9 9.1 - 12.3 fL [facility] RBC 4.79 4.30 - 5.80 M/cumm [facility] MCV 93.7 81.3 - 96.4 fL [facility] MCH 31.3 27.1 - 33.3 pg [facility] MCHC 33.4 32.3 - 35.7 g/dL [facility] RDW CV 13.9 11.1 - 14.9 % [facility] RDW SD 47.7 35.7 - 48.1 fL [facility] NRBC abs 0.00 0.00 - 0.01 K/cumm [facility] Blood (Blood, Venous) 07/08/2024 1:04 PM INTERACTIVE MULTIMEDIA DESIGNER 07/08/2024 1:07 PM INTERACTIVE MULTIMEDIA DESIGNER Lizet Sotelo MD LAB BLOOD ORDERABLES F inal Result Performing Organization Address City/[facility]/ZIP Co de Phone Number KARL [address] [facility] Department [place] [address] * Comprehensive metabolic panel (07/08/2024 1:04 PM INTERACTIVE MULTIMEDIA DESIGNER) Sodium 135 135 - 145 mmol/L Potassium, pl 4.3 3.3 - 4.9 mmol/L [facility] Chloride 98 97 - 110 mmol/L [facility] CO2 25 22 - 32 mmol/L [facility] Anion gap 12 2 - 15 mmol/L [facility] BUN 15 6 - 25 mg/dL [facility] Creatinine 0.90 0.80 - 1.30 mg/dL [facility] Glucose 177 70 - 199 mg/dL [facility] Comment: Interpretive Data Fasting glucose >/= 126 [...] classification and Diagnosis of Diabetes Diabetes Care 2021; 46: S19-S40. Current interpretive data was last revised 2022. Calcium 9.9 8.5 - 10.3 mg/dL [facility] Bilirubin, total 0.5 0.1 - 1.2 mg/dL [facility] Protein, pl 7.3 6.5 - 8.5 g/dL [facility] Albumin 4.2 3.5 - 5.0 g/dL [facility] Alk phos 76 40 - 130 Units/L [facility] ALT 19 7 - 55 Units/L [facility] AST 12 10 - 50 Units/L [facility] Blood 07/08/2024 1:04 PM INTERACTIVE MULTIMEDIA DESIGNER 07/08/2024 1:07 PM INTERACTIVE MULTIMEDIA DESIGNER Lizet Sotelo MD LAB BLOOD ORDERABLES F inal Result Performing Organization Address [facility]/ZIP Co de Phone Number KARL [address] [facility] Department [place] [address] * ECG 12 lead (07/08/2024 12:50 PM INTERACTIVE MULTIMEDIA DESIGNER) Ventricular Rate EKG/Min 107 BPM [facility] Atrial Rate 107 BPM [facility] HI-Interval (MSEC) 190 ms [facility] QRS-Interval (MSEC) 92 ms [facility] QT-Interval (MSEC) 356 ms [facility] QTc 475 ms [facility] P [place]win 62 degrees [facility] R [place] 61 degrees [facility] T [place]win 55 degrees [facility] Diagnosis Sinus tachycardia Low voltage QRS Borderline ECG No previous ECGs available Confirmed by KENDALL ORTEGA M.D. ([id number]) on 07/09/2024 8:19:39 AM [facility] 07/08/2024 12:5 0 PM INTERACTIVE MULTIMEDIA DESIGNER 07/09/2024 8:19 AM INTERACTIVE MULTIMEDIA DESIGNER us Lizet Sotelo MD ECG ORDERABLES Final Result [facility] * eGFR (06/30/2024 5:40 AM INTERACTIVE MULTIMEDIA DESIGNER) eGFR >90 >=60 mL/min/1. 73 m2 KARL [...] Current interpretive data was last reviewed 2021. [facility], [facility]0 [facility], [place]., [address] Blood 06/30/2024 5:40 AM INTERACTIVE MULTIMEDIA DESIGNER 06/30/2024 7:08 AM INTERACTIVE MULTIMEDIA DESIGNER us Pat EMERY LAB BLOOD ORDERABLES Final Resu lt KARL [address] [facility] Department [place] [address] * (ABNORMAL) CBC without differential (06/30/2024 5:40 AM INTERACTIVE MULTIMEDIA DESIGNER) WBC 7.6 3.8 - 9.9 K/cumm CERNER Comment:[address] [address] Hgb 13.9 13.0 - 17.5 g/dL [facility] Comment:[address], [address] Hct 42.5 38.9 - 50.3 % [facility] Comment:[address], [address] Plt 185 150 - 400 K/cumm [facility] Comment:[address], [address] MPV 12.9(H) 9.1 - 12.3 fL [facility] Comment:[address], [address] RBC 4.50 4.30 - 5.80 M/cumm [facility] Comment:[address], [address] MCV 94.4 81.3 - 96.4 fL [facility] Comment:[address], [address] MCH 30.9 27.1 - 33.3 pg [facility] Comment:[address] [address] MCHC 32.7 32.3 - 35.7 g/dL [facility] Comment:[address], [address] RDW CV 13.9 11.1 - 14.9 % [facility] Comment:[address], [address] RDW SD 47.9 35.7 - 48.1 fL [facility] Comment:[address], [address] NRBC abs 0.00 0.00 - 0.01 K/cumm KARL Comment:[address] [address] Blood 06/30/2024 5:40 AM INTERACTIVE MULTIMEDIA DESIGNER 06/30/2024 7:08 AM INTERACTIVE MULTIMEDIA DESIGNER us Pat EMERY LAB BLOOD ORDERABLES Final Resu lt KARL [address] [facility] Department [place] [address] * Comprehensive metabolic panel (06/30/2024 5:40 AM INTERACTIVE MULTIMEDIA DESIGNER) Sodium 138 135 - 145 mmol/L KARL Comment:[address] [address] Potassium, pl 4.1 3.3 - 4.9 mmol/L KARL Comment:[address] [address] Chloride 99 97 - 110 mmol/L KARL Comment:[address] [address] CO2 29 22 - 32 mmol/L KARL Comment:[address] [address] Anion gap 10 2 - 15 mmol/L KARL Comment:[address] [address] BUN 18 6 - 25 mg/dL KARL Comment:[address] [address] Creatinine 0.80 0.80 - 1.30 mg/dL KARL Comment:[address] [address] Glucose 187 70 - 199 mg/dL KARL Comment: Interpretive [...] Current interpretive data was last revised 2022. [facility], [address] [place]., [address] Calcium 9.5 8.5 - 10.3 mg/dL [facility] Comment:[facility], [address] [place] [address]., [address] Bilirubin, total 0.3 0.1 - 1.2 mg/dL [facility] Comment:[address] [address] Protein, pl 6.5 6.5 - 8.5 g/dL [facility] Comment:[address] [address] Albumin 3.9 3.5 - 5.0 g/dL [facility] Comment:[address] [address] Alk phos 69 40 - 130 Units/L [facility] Comment:[address] [address] ALT 12 7 - 55 Units/L [facility] Comment:[address] [address] AST 12 10 - 50 Units/L [facility] Comment:[address] [address] Blood 06/30/2024 5:40 AM INTERACTIVE MULTIMEDIA DESIGNER 06/30/2024 7:08 AM INTERACTIVE MULTIMEDIA DESIGNER Pat EMERY LAB BLOOD ORDERABLES Final Resu lt KARL [address] [place] [address] * FL Modified Barium Swallow W Video (06/29/2024 2:01 PM INTERACTIVE MULTIMEDIA DESIGNER) Anatomical Region Laterality Modality Head and Neck N/A Computed Radiogr aphy, Computed Radiography 06/29/2024 2:13 PM INTERACTIVE MULTIMEDIA DESIGNER Narrative 06/29/2024 2:14 PM INTERACTIVE MULTIMEDIA DESIGNER EXAM DESCRIPTION: FL MODIFIED BARIUM SWALLOW EVALUATION [...] Kareem Burnett M.D. SN T: Report ID: [id number] Reading Location: [place] [address] Procedure Note Kareem Burnett MD - 06/29/2024 [...] Kareem Burnett M.D. SN T: Report ID: [id number] Reading Location: [place] [address] Pat EMERY IMG FLUOROSCOPY PROCEDURES Di l Result * (ABNORMAL) CBC without differential (06/14/2024 5:44 AM INTERACTIVE MULTIMEDIA DESIGNER) WBC 9.2 3.8 - 9.9 K/cumm [facility]ARL [place] Comment:[address] [address] Hgb 13.5 13.0 - 17.5 g/dL [facility]ARL [place] Comment:[address] [address] Hct 41.7 38.9 - 50.3 % KARL [place] Comment:[address] [address] Plt 226 150 - 400 K/cumm KARL [place] Comment:[address], [address] MPV 13.1(H) 9.1 - 12.3 fL KARL Comment:[address], [address] RBC 4.33 4.30 - 5.80 M/cumm KARL MH Comment:[address], [address] MCV 96.3 81.3 - 96.4 fL KARL Comment:[address], [address] MCH 31.2 27.1 - 33.3 pg KARL Comment:[address], [address] MCHC 32.4 32.3 - 35.7 g/dL KARL Comment:[address], [address] RDW CV 14.2 11.1 - 14.9 % KARL Comment:[address], [address] RDW SD 50.1(H) 35.7 - 48.1 fL KARL Comment:[address], [address] NRBC abs 0.00 0.00 - 0.01 K/cumm KARL Comment:[address] [address] Blood 06/14/2024 5:44 AM INTERACTIVE MULTIMEDIA DESIGNER 06/14/2024 8:08 AM INTERACTIVE MULTIMEDIA DESIGNER Pat EMERY LAB BLOOD ORDERABLES Final Resu lt KARL [address] [facility] Department [place] [address] * FL Modified Barium Swallow W Video (06/09/2024 2:28 PM INTERACTIVE MULTIMEDIA DESIGNER) Anatomical Region Laterality Modality Head and Neck N/A Computed Radiogr aphy, Computed Radiography 06/09/2024 2:41 PM INTERACTIVE MULTIMEDIA DESIGNER Narrative 06/09/2024 2:43 PM INTERACTIVE MULTIMEDIA DESIGNER EXAM DESCRIPTION: FL MODIFIED BARIUM SWALLOW EVALUATION [...] signed by Mike OLIVEIRA T: Report ID: [id number] Reading Location: [id number] Procedure Note Mike Madera MD - 06/09/2024 [...] signed by Mike OLIVEIRA T: Report ID: [id number] Reading Location: [id number] Pat EMERY IMG FLUOROSCOPY PROCEDURES Di l Result * eGFR (06/08/2024 8:31 AM INTERACTIVE MULTIMEDIA DESIGNER) eGFR >90 >=60 mL/min/1. 73 m2 KARL [...] Current interpretive data was last reviewed 2021. [facility], [address] [place] [address]., [address] Blood 06/08/2024 8:31 AM INTERACTIVE MULTIMEDIA DESIGNER 06/08/2024 8:42 AM INTERACTIVE MULTIMEDIA DESIGNER us Pat EMERY LAB BLOOD ORDERABLES Final Resu lt KARL [address] Department [place] [address] * (ABNORMAL) CBC without differential (06/08/2024 8:31 AM INTERACTIVE MULTIMEDIA DESIGNER) Pathologist [facility] [place] WBC 11.1(H) 3.8 - 9.9 K/cumm KARL [place] Comment:[address] [address] Hgb 13.6 13.0 - 17.5 g/dL KARL [place] Comment:[address] [address] Hct 41.6 38.9 - 50.3 % KALR [place] Comment:[address] [address] Plt 171 150 - 400 K/cumm KARL Comment:[address] [address] MPV 13.2(H) 9.1 - 12.3 fL KARL Comment:[address] [address] RBC 4.33 4.30 - 5.80 M/cumm KARL MH Comment:[address] [address] MCV 96.1 81.3 - 96.4 fL KARL Comment:[address] [address] MCH 31.4 27.1 - 33.3 pg KARL Comment:[address], [address] MCHC 32.7 32.3 - 35.7 g/dL KARL Comment:[address], [address] RDW CV 14.6 11.1 - 14.9 % KARL Comment:[address] [address] RDW SD 51.8(H) 35.7 - 48.1 fL KARL Comment:[address] [address] NRBC abs 0.00 0.00 - 0.01 K/cumm KARL Comment:[address] [address] Blood 06/08/2024 8:31 AM INTERACTIVE MULTIMEDIA DESIGNER 06/08/2024 8:42 AM INTERACTIVE MULTIMEDIA DESIGNER Pat EMERY LAB BLOOD ORDERABLES Final Resu lt [facility] [address] [facility] [place] [address] * (ABNORMAL) Comprehensive metabolic panel (06/08/2024 8:31 AM INTERACTIVE MULTIMEDIA DESIGNER) Sodium 135 135 - 145 mmol/L KARL Comment:[address], [address] Potassium, pl 4.2 3.3 - 4.9 mmol/L KARL [place] Comment:[address] [address] Chloride 98 97 - 110 mmol/L [facility] Comment:[address] [address] CO2 29 22 - 32 mmol/L [facility] Comment:[address] [address] Anion gap 8 2 - 15 mmol/L [facility] Comment:[address] [address] BUN 24 6 - 25 mg/dL [facility] Comment:[address] [address] Creatinine 0.94 0.80 - 1.30 mg/dL [facility] Comment:[address] [address] Glucose 271(H) 70 - 199 mg/dL [facility] Comment: Interpretive Data Fasting glucose >/= 126 [...] Current interpretive data was last revised 2022. [facility], [address] [place]., [address] Calcium 9.9 8.5 - 10.3 mg/dL [facility] Comment:[address] [address] Bilirubin, total 0.3 0.1 - 1.2 mg/dL [facility] Comment:[address] [address] Protein, pl 6.6 6.5 - 8.5 g/dL [facility] Comment:[address] [address] Albumin 3.9 3.5 - 5.0 g/dL [facility] Comment:[address] [address] Alk phos 78 40 - 130 Units/L [facility] Comment:[address], [place]., [address] ALT 23 7 - 55 Units/L KARL Comment:[address] [address] AST 18 10 - 50 Units/L KARL Comment:[address] [address] Blood 06/08/2024 8:31 AM INTERACTIVE MULTIMEDIA DESIGNER 06/08/2024 8:42 AM INTERACTIVE MULTIMEDIA DESIGNER Pat Knight PA LAB BLOOD ORDERABLES Final Resu lt [address] [place] [address] * eGFR (06/04/2024 4:21 PM INTERACTIVE MULTIMEDIA DESIGNER) eGFR >90 >=60 mL/min/1. 73 m2 KARL [...] Current interpretive data was last reviewed 2021. [facility], [address] [place] [address]., [address] Blood 06/04/2024 4:21 PM INTERACTIVE MULTIMEDIA DESIGNER 06/04/2024 4:34 PM INTERACTIVE MULTIMEDIA DESIGNER Tawny Batres [employer]GRAM[employer] LAB BLOOD ORDERABLES Final Result KARL [address] [facility] Department [place] [address] * (ABNORMAL) CBC without differential (06/04/2024 4:21 PM INTERACTIVE MULTIMEDIA DESIGNER) WBC 8.3 3.8 - 9.9 K/cumm KARL Comment:[address], [address] Hgb 13.3 13.0 - 17.5 g/dL KARL Comment:[address], [address] Hct 39.4 38.9 - 50.3 % KARL Comment:[address], [address] Plt 136(L) 150 - 400 K/cumm KARL Comment:[address], [address] MPV 12.7(H) 9.1 - 12.3 fL KARL Comment:[address], [address] RBC 4.17(L) 4.30 - 5.80 M/cumm KARL Comment:[address], [address] MCV 94.5 81.3 - 96.4 fL KARL Comment:[address], [address] MCH 31.9 27.1 - 33.3 pg KARL Comment:[address], [address] MCHC 33.8 32.3 - 35.7 g/dL KARL Comment:[address], [address] RDW CV 14.6 11.1 - 14.9 % KARL Comment:[address], [address] RDW SD 50.1(H) 35.7 - 48.1 fL KARL Comment:[address], [address] NRBC abs 0.00 0.00 - 0.01 K/cumm KARL Comment:[address], [address] Blood 06/04/2024 4:21 PM INTERACTIVE MULTIMEDIA DESIGNER 06/04/2024 4:34 PM INTERACTIVE MULTIMEDIA DESIGNER Tawny Batres NP LAB BLOOD ORDERABLES Final Result KARL [address] [place] [address] * Phosphorus (06/04/2024 4:21 PM INTERACTIVE MULTIMEDIA DESIGNER) Phosphorus, pl 3.6 2.3 - 4.5 mg/dL KARL Comment:[address] [address] Blood 06/04/2024 4:21 PM INTERACTIVE MULTIMEDIA DESIGNER 06/04/2024 4:34 PM INTERACTIVE MULTIMEDIA DESIGNER Result [facility] Tawny Batres NP LAB BLOOD ORDERABLES Final Result Performing Organization Address [facility]/ZIP Co de Phone Number [id number] [place] [address] * Magnesium (06/04/2024 4:21 PM INTERACTIVE MULTIMEDIA DESIGNER) Pathologist [facility] [place] Magnesium 2.3 1.4 - 2.5 mg/dL KARL Comment:[facility], [address] [place] [address]., [address] Blood 06/04/2024 4:21 PM INTERACTIVE MULTIMEDIA DESIGNER 06/04/2024 4:34 PM INTERACTIVE MULTIMEDIA DESIGNER Result [facility] Tawny Batres NP LAB BLOOD ORDERABLES Final Result [address] [place] [address] * (ABNORMAL) Hemoglobin A1c (06/04/2024 4:21 PM INTERACTIVE MULTIMEDIA DESIGNER) Hgb A1C 7.6(H) 4.0 - 5.6 % KARL Comment:[address] [address] Estimated Average Glucose 171 mg/dL KARL Comment: The ADA recommends reporting an estimated Average Glucose (eAG) with all Hemoglobin A1c results using the equation derived from a study of 507 normal and diabetic adults. Minority populations were underrepresented and children were not included. (Diabetes Care 31:9288-9388, 2008). The eAG is not equivalent to a fasting glucose. [facility], [address] [place] [address]., [address] Blood 06/04/2024 4:21 PM INTERACTIVE MULTIMEDIA DESIGNER 06/04/2024 4:34 PM INTERACTIVE MULTIMEDIA DESIGNER us Tawny Batres NP LAB BLOOD ORDERABLES Final Result KARL [address] [place] [address] * (ABNORMAL) Comprehensive metabolic panel (06/04/2024 4:21 PM INTERACTIVE MULTIMEDIA DESIGNER) Sodium 134(L) 135 - 145 mmol/L KARL Comment:[address] [address] Potassium, pl 4.1 3.3 - 4.9 mmol/L KARL Comment:[address] [address] Chloride 95(L) 97 - 110 mmol/L KARL Comment:[address] [address] CO2 27 22 - 32 mmol/L KARL Comment:[address] [address] Anion gap 12 2 - 15 mmol/L KARL Comment:[address] [address] BUN 25 6 - 25 mg/dL KARL Comment:[address] [address] Creatinine 0.86 0.80 - 1.30 mg/dL KARL Comment:[address] [address] Glucose 229(H) 70 - 199 mg/dL KARL Comment: Interpretive [...] classification and Diagnosis of Diabetes Diabetes Care 2021; 46: S19-S40. Current interpretive data was last revised 2022. [facility], [address] [place]., [address] Calcium 9.5 8.5 - 10.3 mg/dL [facility] Comment:[address] [address] Bilirubin, total 0.4 0.1 - 1.2 mg/dL [facility] Comment:[address] [address] Protein, pl 6.5 6.5 - 8.5 g/dL [facility] Comment:[address] [address] Albumin 3.9 3.5 - 5.0 g/dL [facility] Comment:[address] [address] Alk phos 79 40 - 130 Units/L [facility] Comment:[address] [address] ALT 28 7 - 55 Units/L [facility] Comment:[address] [address] AST 13 10 - 50 Units/L [facility] Comment:[address] [address] Blood 06/04/2024 4:21 PM INTERACTIVE MULTIMEDIA DESIGNER 06/04/2024 4:34 PM INTERACTIVE MULTIMEDIA DESIGNER us Tawny Batres SAP ABAP PROGRAMMER LAB BLOOD ORDERABLES Final Result KARL [address] [place] [address] from Last 3 Months Insurance Advance Directives For more information, please contact: [phone] Documents on File Type Date Recorded Patient Electroplater Automatic Expl anation ADVANCE DIRECTIVE 07/14/2024 11:20 AM POLS T - Phys Order for PT Preferences * Full Code (Latest Code Status on File) Date Activated Date Inactivated Comments 07/08/2024 8:07 PM 07/13/2024 6:31 PM Care Teams Stroke Coordinator Relationship Specialty Start Date End Date Franck Garcia MD PCP - General 02/10/17
--- OUTSIDE RECORDS SUMMARY | 2024-08-12 08:29 | XMS_ITS | Encounter Summary ---
Author Organization [employer] Address [address] [place] [address] Care Team Providers Care Multigraph Operator Name Role Phone Clifton Garcia MD Primary Care Provider [phone] Encounter Details Date Type Department Care Team (Latest Contact Info) Description 11/06/2007 Outpatient Historical HIS RADIATION THERAPY David Seymour MD [facility] [address] [place] [address] Hilario Howard MD [address] [facility]. 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
--- OUTSIDE RECORDS SUMMARY | 2024-08-12 08:29 | XMS_ITS | Encounter Summary ---
Author Organization [employer] Address 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
--- OUTSIDE RECORDS SUMMARY | 2024-08-12 08:29 | XMS_ITS | Encounter Summary ---
Author Organization [employer] Address 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
--- OUTSIDE RECORDS SUMMARY | 2024-08-12 08:29 | XMS_ITS | Encounter Summary ---
Author Organization [employer] Address [address] [place] [address] Care Team Providers Care Patternmaker Wood Name Role Phone Clifton Garcia MD Primary Care Provider [phone] Encounter Details Date Type Department Care Team (Latest Contact Info) Description 02/17/2008 Outpatient Historical HIS RADIATION THERAPY David Seymour MD [address] [place] [address] [address] [place] [address] Malignant Neoplasm of Oropharynx, Unspecified Site (CMS/HCC) Social History Tobacco Use Types Packs/Day Years Used Date Smoking Tobacco: Never Assessed Sex and Gender Information Value Date Recorded Sex Assigned at Not on file Legal Sex Male 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
--- OUTSIDE RECORDS SUMMARY | 2024-08-12 08:29 | XMS_ITS | Encounter Summary ---
Author Organization [employer] [place] Address [address] [place] [address] Care Team Providers Care Asphalt Plant Laborer Name Role Phone Franck Garcia MD Primary Care Provider [phone] Encounter Details Date Type Department Care Team (Latest Contact Info) Description 10/07/2007 Outpatient Historical [facility] Stephania Howard MD [address] [facility] 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 He was treated with tonsillectomy and a left neck dissection at that time that demonstrated 15 of 49 lymph nodes positive for malignancy. He has not yet received radiation therapy or chemotherapy. A PET/CT study is needed for initial staging. PROCEDURE: Approximately 60 minutes after injection with 11.35 mCi of F-18 labeled FDG, CT imaging was acquired from the level of the orbits to the most proximal thighs. Subsequently, positron emission imaging was acquired over the same territory. The patient's blood glucose level at the time of tracer injection was 86 mg/dl. FINDINGS: No prior correlative imaging is available for . Tracer activity in the gordon matter, and cerebellum is unremarkable. At the level of the head and neck, the patient is status post left neck dissection with sacrifice of the left common jugular vein and left submandibular gland. The sternocleidomastoid muscle is intact. No significant adenopathy is appreciated in the left cervical territories. Additionally, there is only physiologic activity in subcentimeter right cervical lymph nodes. There is an expected post tonsillectomy pattern of FDG uptake in the oropharynx. Glottic and thyroid activity is physiologic. Bilaterally, the supraclavicular fossa are unremarkable. At the level of the chest, there is a normal pattern of tracer activity. Specifically, there is no significant uptake within the axillary or mediastinal lymphatics. Both lungs demonstrate an unremarkable pattern of tracer distribution. A vague groundglass opacity in the medial right middle lobe is FDG negative, and very difficult to characterize on the non-breath- hold CT images. At the level of the abdomen, there is diffuse fatty hepatic infiltration with relative sparing of hepatic segment 4. Hepatic FDG uptake is unremarkable. There is normal FDG uptake within the adrenal glands, spleen, stomach, duodenum and pancreas. FDG excretion via the kidneys bilaterally is in an expected pattern. At the level of the pelvis, there is normal tracer distribution to the iliac, obturator, inguinal and femoral lymph node territories bilaterally. Prostatic tracer activity is unremarkable, and a tiny calcification in the left prostate lobe is identified. Staples images are available on the hospital PACS system for review. IMPRESSION: 1. Postsurgical changes in the head and neck. 2. No evidence for recurrent or residual malignancy. 3. Vague groundglass opacity in the medial right middle lobe; finding is FDG negative, but very difficult to evaluate with the CT images from this study. 4. Fatty hepatic infiltration with relative sparing of hepatic segment 4. . Dictated by: KOLE GONZALEZ 10/07/2007 10:37 Electronically signed by: KOLE GONZALEZ 10/07/2007 10:55 Procedure Note Kole Gonzalez - 10/07/[address] [address] Admit Date: 10/07/2007 FRANCK LOUISE Sex: M Admit Prov: STEPHANIA HOWARD Date: 1965 Primary Care Prov: CMRN: [id number] Room: [facility] SSN: [id number] IMAGING SERVICES Ordering Prov: N/A Interpretation WHOLE BODY PET/CT HISTORY: 42 year old male diagnosed with squamous cell carcinoma of the lefttonsil in August 2007. He was treated with tonsillectomy and a left neckdissection at that time that demonstrated 15 of 49 lymph nodes positive for malignancy. He has not yet received radiation therapy orchemotherapy. A PET/CT study is needed for initial staging. PROCEDURE: Approximately 60 minutes after injection with 11.35 mCi of F-18labeled FDG, CT imaging was acquired from the level of the orbits to themost proximal thighs. Subsequently, positron emission imaging was acquiredover the same territory. The patient's blood glucose level at the time oftracer injection was 86 mg/dl. FINDINGS: No prior correlative imaging is available for . Tracer activity inthe gordon matter, and cerebellum is unremarkable. At the level of the head andneck, the patient is status post left neck dissection with sacrifice of theleft common jugular vein and left submandibular gland. Thesternocleidomastoid muscle is intact. No significant adenopathy is appreciated in theleft cervical territories. Additionally, there is only physiologicactivity in subcentimeter right cervical lymph nodes. There is an expected post tonsillectomy pattern of FDG uptake in the oropharynx. Glottic andthyroid activity is physiologic. Bilaterally, the supraclavicular fossa are unremarkable. At the level of the chest, there is a normal pattern of traceractivity. Specifically, there is no significant uptake within the axillary or mediastinal lymphatics. Both lungs demonstrate an unremarkablepattern of tracer distribution. A vague groundglass opacity in the medial rightmiddle lobe is FDG negative, and very difficult to characterize on thenon-breath- hold CT images. At the level of the abdomen, there is diffuse fatty hepaticinfiltration with relative sparing of hepatic segment 4. Hepatic FDG uptake is unremarkable. There is normal FDG uptake within the adrenal glands,spleen, stomach, duodenum and pancreas. FDG excretion via the kidneysbilaterally is in an expected pattern. At the level of the pelvis, there is normal tracer distribution tothe iliac, obturator, inguinal and femoral lymph node territoriesbilaterally. Prostatic tracer activity is unremarkable, and a tiny calcificationin the left prostate lobe is identified. Staples images are available on the hospital PACS system for review. IMPRESSION: 1. Postsurgical changes in the head and neck. 2. No evidence for recurrent or residual malignancy. 3. Vague groundglass opacity in the medial right middle lobe; findingis FDG negative, but very difficult to evaluate with the CT images fromthis study. 4. Fatty hepatic infiltration with relative sparing of hepaticsegment 4. . Dictated by: KOLE GONZALEZ 10/07/2007 10:37 Electronically signed by: KOLE GONZALEZ 10/07/2007 10:55 Stephania Howard MD PE ORDERABLES Final Result documented in this encounter Visit Diagnoses Diagnosis Malignant neoplasm of head, face, and neck (CMS/HCC) Malignant neoplasm of head, face, and neck documented in this encounter Care Teams Asphalt Plant Laborer Relationship Specialty [place] [address] [place] [id number] PCP - General 04/25/09 documented as of this encounter
--- OUTSIDE RECORDS SUMMARY | 2024-08-12 08:29 | XMS_ITS | Encounter Summary ---
Author Organization [employer] Address [address] [place] [address] Care Team Providers Care Therapeutic Dietitian Name Role Phone Clifton Garcia MD Primary Care Provider [phone] Encounter Details Date Type Department Care Team (Latest Contact Info) Description 10/05/2007 Outpatient Historical HIS RADIATION THERAPY David Seymour MD [facility] [address] [place] [address] Hilario Howard MD [address] [facility]. 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
--- OUTSIDE RECORDS SUMMARY | 2024-08-12 08:29 | XMS_ITS | Encounter Summary ---
Author Organization [employer] Address [address] [place] [address] Care Team Providers Care School Bus Inspector Name Role Phone Clifton Garcia MD Primary Care Provider [phone] Encounter Details Date Type Department Care Team (Latest Contact Info) Description 10/07/2007 Outpatient Historical [facility] Hilario Howard MD [address] 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 Gender Identity Not on file Sexual Orientation Not on file documented as of this encounter Plan of Treatment Not on file documented as of this encounter Visit Diagnoses Diagnosis Malignant neoplasm of head, face, and neck (CMS/HCC) Malignant neoplasm of head, face, and neck Other malignant neoplasm without specification of site (CMS/HCC) Other malignant neoplasm without specification of site documented in this encounter Care Teams School Bus Inspector Relationship Specialty Start [place] [address] [place] [address] PCP - General 04/25/09 documented as of this encounter
--- OUTSIDE RECORDS SUMMARY | 2024-08-12 08:29 | XMS_ITS | Encounter Summary ---
Author Organization [facility] Address [address] [place] [address] Care Team Providers Care Tobacco Packer Name Role Phone Franck Garcia MD Primary Care Provider [phone] Encounter Details Date Type Department Care Team (Latest Contact Info) Description 09/04/2007 Inpatient Historical [facility] Stephania Howard MD [address] [place] [id number] Malignant Neoplasm of Head, Face, and Neck (CMS/HCC) Social History Tobacco Use Types Packs/Day Years Used Date Smoking Tobacco: Never Assessed Sex and Gender Information Value Date Recorded Sex Assigned at Not on file Legal Sex Male 5:32 AM [employer] Gender Identity Not on file Sexual Orientation Not on file documented as of this encounter Plan of Treatment Not on file documented as of this encounter Procedures Procedure Name Priority Date/Time Associated Diagnosis Comments PATHOLOGY Routine 09/04/2007 3:53 PM CDT HEMOGLOBIN AND HEMATOCRIT Stat 09/04/2007 12:14 PM CDT BASIC METABOLIC PANEL Stat 09/04/2007 11:43 AM CDT documented in this encounter Results * PATHOLOGY (09/04/2007 3:53 PM CDT) FINAL [facility]PORT [facility] [address], [place] [address] Patient: FRANCK LOUISE : 1965 Procedure Date: 09/04/2007 Accession Date: 09/04/2007 Case No: [id number] Ordering Dr: STEPHANIA HOWARD Case types AW, BW, FW, NW and SH are performed by [facility], [place], [place] SURGICAL PATHOLOGY & NON-GYNECOLOGIC CYTOPATHOLOGY REPORT DIAGNOSIS TONSILLECTOMY: - SQUAMOUS CELL CARCINOMA (SEE DESCRIPTION). - SEVERE DYSPLASIA. OROPHARYNX, LEFT TONSIL, SUPERIOR MARGIN, EXCISION: - NO TUMOR SEEN. LYMPH NODE, LEFT CERVICAL, DISSECTION: - METASTATIC SQUAMOUS CELL CARCINOMA (15 OF 49 LYMPH NODES). SOFT TISSUE, LEFT NECK, DISSECTION: - SQUAMOUS CELL CARCINOMA. VEIN, LEFT JUGULAR, DISSECTION: - NO TUMOR SEEN. SALIVARY GLAND, LEFT SUBMANDIBULAR, NECK DISSECTION: - NO TUMOR SEEN. Specimen Description: (1) Left tonsil-stitch pathak superior; (2) new superior margin. Operative Procedure: Left tonsillectomy; left neck dissection. Patient Information/Histor y/Diagnosis: Squamous cell carcinoma, left tonsil. Gross: Two containers are received, labeled Franck Louise. Received in the first container, additionally labeled left tonsil, stitch pathak superior, is a 2.6 x 1.5 x 1-cm excision of ink-gordon glistening mucosa consistent with tonsil. A suture is present, indicating the superior margin. This tip is designated 12 o'clock. No discrete lesions are identified on the mucosal surface. The 3 o'clock half of the specimen is marked with blue ink. The 9 o'clock half of the specimen is marked with black ink. The tonsil is then serially sectioned from 12 o'clock to 6 o'clock. Sectioning exhibits a 0.8 x 0.7-cm mass in the 3 o'clock half of the tonsil, near the 12 o'clock tip. The mass is less than 0.1 cm from the blue-inked margin, and is 0.6 cm from the black-inked margin. The remainder of the tonsil has an unremarkable crypt architecture. The tonsil is entirely, sequentially submitted from 12 o'clock to 6 o'clock, in cassettes A1 through A4. Received in the second container additionally labeled new superior margin, are two unoriented pieces of red-gordon tissue, which are 0.8 and 1.4 cm in greatest dimension. The mucosa is identified on the larger piece of tissue. Both pieces of tissue are submitted in cassette B1. Received in the third container labeled left neck dissection tissue is the product of a left radical neck dissection. It includes the submandibular gland, internal and external jugular veins, and soft tissue with lymph nodes. The overall measurements are 10 x 9 x 2.5 cm. Skeletal muscle is not identified. The submandibular gland measures 4 x 3 x 2.5 cm. A segment of internal jugular vein included measures 5 cm in length and 0.6 cm in diameter. The external jugular portion included measures 5.5 cm in length and 0.7 cm in diameter. The veins contain blood clot. The submandibular gland has a lobulated appearance and appears grossly unremarkable. A sampling of the gland is submitted in block E1. The internal and external jugular veins appear grossly unremarkable, and they are sampled in block D1. Lymph nodes are dissected from the submandibular, superior jugular, mid jugular, inferior jugular and posterior triangle areas. Some submandibular and superior jugular lymph nodes are enlarged, the largest node being in the superior jugular area measuring 3.7 cm. Sections of the submandibular lymph nodes are submitted in blocks C1 and C2. The largest superior jugular node is grossly involved by tumor. It is partly cystic and is sampled in block C3. Additional superior jugular lymph nodes are submitted in blocks C4 and C5. The mid jugular lymph nodes are submitted in blocks C6 and C7. The inferior jugular lymph nodes are submitted in blocks C8 and C9, while the posterior triangle nodes are in C10. [facility] 09.04.2007 08:17 pm Microscopic: Received are slides labeled [id number], Franck Louise. Sections of left tonsil identify an invasive, keratinizing squamous cell carcinoma arising in the setting of severe dysplasia. Squamous cell carcinoma consists of irregular nests, cords, and patternless sheets of neoplastic cells, distributed in a desmoplastic stroma. This is a moderately differentiated, keratinizing neoplasm. Squamous cell carcinoma infiltrates skeletal muscle at the advancing edge of the tumor. Focal lymphovascular deposits of carcinoma are noted. Perineural invasion is focally noted. Carcinoma is extensively present in the superior edge of the excision (A1), and is present at the black-inked (9 o'clock half) margin in this section. Carcinoma focally approaches to within less than 1 mm of the blue inked margin (3 o'clock half) in this section. In the next section (A2), squamous cell carcinoma is focally present at the blue-inked margin in this section, within skeletal muscle. Squamous cell carcinoma is only a few microns from the black-inked margin in this section. The deep margin of resection is negative. All mucosal margins of resection are negative. Sections of new superior margin, sample unremarkable stratified squamous epithelium and abundance of epithelial stroma that includes skeletal muscle and minor salivary gland acini. Keratinous debris is focally present, but is not identifiable as squamous cell carcinoma. This may reflect tonsillar epithelium. Fifteen of 49 lymph nodes retrieved from the left neck dissection, contain deposits of metastatic carcinoma. Involved lymph nodes are in the superior, mid, and inferior jugular regions. The largest lymph node is in the superior jugular area of the dissection, and measures 3.7 cm in diameter. There are extensive infiltrates of squamous cell carcinoma in the adjacent soft tissue. Sections of jugular veins are unremarkable. Sections of the submandibular salivary gland are also unremarkable. Summary of Significant Characteristics: Specimen Type: Tonsillectomy. Tumor Site(s): Left palatine tonsil. Tumor Size: 0.8 x 0.7 x 0.7 cm. Histologic Type(s): Squamous cell carcinoma. Histologic Grade: Moderately differentiated. Extent of Invasion (TNM): T1 N2 Mx. Lymph Nodes: Number Examined 49; Number Involved 15. Margin(s): See description. Perineural Invasion: Present. [facility] 09.07.2007 04:19 pm Staging Form: Yes. ELECTRONIC SIGNATURE FOR SARAH SIN M.D.- 09/08/07 04:42 pm INTERFACE SYSTEM ADDENDUM REPORT [facility] [address] [place], [place] [address] Patient: FRANCK LOUISE : 1965 Procedure Date: 09/04/2007 Accession Date: 09/04/2007 Case No: [id number] Ordering Dr: STEPHANIA HOWARD Case types AW, BW, FW, NW and SH are performed by [facility], [place], [place] ADDENDUM REPORT NOTE: This addendum is issued to report the results of in situ hybridization studies for human papilloma virus. 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 Testing was performed and interpreted by [facility]. Tissue was tested via in situ hybridization using the INFORM low-risk and high-risk HPV kit. The low-risk HPV is interpreted as negative. The high- risk HPV was interpreted as positive. The high-risk HPV probe detects the following HPV genotypes: 16, 18, 31, 33, 35, 45, 51, 52, 56, 58, 59, 68, and 70. [facility] 02.08.08 ELECTRONIC SIGNATURE FOR SARAH SIN M.D. - 02/08/08 10:03 am SURGICAL PATHOLOGY & NON-GYNECOLOGIC CYTOPATHOLOGY REPORT DIAGNOSIS TONSILLECTOMY: - SQUAMOUS CELL CARCINOMA (SEE DESCRIPTION). - SEVERE DYSPLASIA. OROPHARYNX, LEFT TONSIL, SUPERIOR MARGIN, EXCISION: - NO TUMOR SEEN. LYMPH NODE, LEFT CERVICAL, DISSECTION: - METASTATIC SQUAMOUS CELL CARCINOMA (15 OF 49 LYMPH NODES). SOFT TISSUE, LEFT NECK, DISSECTION: - SQUAMOUS CELL CARCINOMA. VEIN, LEFT JUGULAR, DISSECTION: - NO TUMOR SEEN. SALIVARY GLAND, LEFT SUBMANDIBULAR, NECK DISSECTION: - NO TUMOR SEEN. Specimen Description: (1) Left tonsil-stitch pathak superior; (2) new superior margin. Operative Procedure: Left tonsillectomy; left neck dissection. Patient Information/Histor y/Diagnosis: Squamous cell carcinoma, left tonsil. Gross: Two containers are received, labeled Franck Louise. Received in the first container, additionally labeled left tonsil, stitch pathak superior, is a 2.6 x 1.5 x 1-cm excision of ink-gordon glistening mucosa consistent with tonsil. A suture is present, indicating the superior margin. This tip is designated 12 o'clock. No discrete lesions are identified on the mucosal surface. The 3 o'clock half of the specimen is marked with blue ink. The 9 o'clock half of the specimen is marked with black ink. The tonsil is then serially sectioned from 12 o'clock to 6 o'clock. Sectioning exhibits a 0.8 x 0.7-cm mass in the 3 o'clock half of the tonsil, near the 12 o'clock tip. The mass is less than 0.1 cm from the blue-inked margin, and is 0.6 cm from the black-inked margin. The remainder of the tonsil has an unremarkable crypt architecture. The tonsil is entirely, sequentially submitted from 12 o'clock to 6 o'clock, in cassettes A1 through A4. Received in the second container additionally labeled new superior margin, are two unoriented pieces of red-gordon tissue, which are 0.8 and 1.4 cm in greatest dimension. The mucosa is identified on the larger piece of tissue. Both pieces of tissue are submitted in cassette B1. Received in the third container labeled left neck dissection tissue is the product of a left radical neck dissection. It includes the submandibular gland, internal and external jugular veins, and soft tissue with lymph nodes. The overall measurements are 10 x 9 x 2.5 cm. Skeletal muscle is not identified. The submandibular gland measures 4 x 3 x 2.5 cm. A segment of internal jugular vein included measures 5 cm in length and 0.6 cm in diameter. The external jugular portion included measures 5.5 cm in length and 0.7 cm in diameter. The veins contain blood clot. The submandibular gland has a lobulated appearance and appears grossly unremarkable. A sampling of the gland is submitted in block E1. The internal and external jugular veins appear grossly unremarkable, and they are sampled in block D1. Lymph nodes are dissected from the submandibular, superior jugular, mid jugular, inferior jugular and posterior triangle areas. Some submandibular and superior jugular lymph nodes are enlarged, the largest node being in the superior jugular area measuring 3.7 cm. Sections of the submandibular lymph nodes are submitted in blocks C1 and C2. The largest superior jugular node is grossly involved by tumor. It is partly cystic and is sampled in block C3. Additional superior jugular lymph nodes are submitted in blocks C4 and C5. The mid jugular lymph nodes are submitted in blocks C6 and C7. The inferior jugular lymph nodes are submitted in blocks C8 and C9, while the posterior triangle nodes are in C10. [facility] 09.04.2007 08:17 pm Microscopic: Received are slides labeled [id number], Franck Louise. Sections of left tonsil identify an invasive, keratinizing squamous cell carcinoma arising in the setting of severe dysplasia. Squamous cell carcinoma consists of irregular nests, cords, and patternless sheets of neoplastic cells, distributed in a desmoplastic stroma. This is a moderately differentiated, keratinizing neoplasm. Squamous cell carcinoma infiltrates skeletal muscle at the advancing edge of the tumor. Focal lymphovascular deposits of carcinoma are noted. Perineural invasion is focally noted. Carcinoma is extensively present in the superior edge of the excision (A1), and is present at the black-inked (9 o'clock half) margin in this section. Carcinoma focally approaches to within less than 1 mm of the blue inked margin (3 o'clock half) in this section. In the next section (A2), squamous cell carcinoma is focally present at the blue-inked margin in this section, within skeletal muscle. Squamous cell carcinoma is only a few microns from the black-inked margin in this section. The deep margin of resection is negative. All mucosal margins of resection are negative. Sections of new superior margin, sample unremarkable stratified squamous epithelium and abundance of epithelial stroma that includes skeletal muscle and minor salivary gland acini. Keratinous debris is focally present, but is not identifiable as squamous cell carcinoma. This may reflect tonsillar epithelium. Fifteen of 49 lymph nodes retrieved from the left neck dissection, contain deposits of metastatic carcinoma. Involved lymph nodes are in the superior, mid, and inferior jugular regions. The largest lymph node is in the superior jugular area of the dissection, and measures 3.7 cm in diameter. There are extensive infiltrates of squamous cell carcinoma in the adjacent soft tissue. Sections of jugular veins are unremarkable. Sections of the submandibular salivary gland are also unremarkable. Summary of Significant Characteristics: Specimen Type: Tonsillectomy. Tumor Site(s): Left palatine tonsil. Tumor Size: 0.8 x 0.7 x 0.7 cm. Histologic Type(s): Squamous cell carcinoma. Histologic Grade: Moderately differentiated. Extent of Invasion (TNM): T1 N2 Mx. Lymph Nodes: Number Examined 49; Number Involved 15. Margin(s): See description. Perineural Invasion: Present. [facility] 09.07.2007 04:19 pm Staging Form: Yes. ELECTRONIC SIGNATURE FOR SARAH SIN M.D.- 09/08/07 04:42 pm INTERFACE SYSTEM 09/04/2007 3:53 PM CDT us Stephania Howard MD PATHOLOGY/CYTOLOGY ORDERABLES Ed ited INTERFACE SYSTEM Refer to clinic/hospital department * (ABNORMAL) HEMOGLOBIN AND HEMATOCRIT (09/04/2007 12:14 PM CDT) HEMATOCRIT 48.2(H) 40.0 - 48.0 % [facility] HEMOGLOBIN 16.2 13.6 - 16.5 g/dL [facility] Blood specimen (specimen) 09/04/2007 12:14 PM CDT 09/04/2007 12:22 PM CDT Narrative [facility] - 09/04/2007 12:28 PM CDT RM 36 us Stephania Howard MD HEMATOLOGY ORDERABLES Final Resu lt [facility] [address] [place], [place] [address] * (ABNORMAL) BASIC METABOLIC PANEL (09/04/2007 11:43 AM CDT) BUN 16 6 - 20 mg/dL [facility] CHLORIDE 96 96 - 108 mmol/L [facility] GLUCOSE 188(H) 65 - 99 mg/dL [facility] SODIUM 134(L) 135 - 145 mmol/L [facility] CALCIUM 8.9 8.4 - 10.2 mg/dL [facility] CO2 29 22 - 30 mmol/L [facility] CREATININE 0.91 0.67 - 1.17 mg/dL [facility] POTASSIUM 4.4 3.5 - 4.9 mmol/L [facility] GFR, >60 >=60 mL/min/1. 7 sq meter [facility] GFR >60 >=60 mL/min/1. 7 sq meter [facility] Comment: Estimated GFR rate interpretative information for both Americans and non- Americans is available on the [facility] Intranet at: [email or web address] Select: Lab Policies and Procedures Select: Reference Ranges - GFR Blood specimen (specimen) 09/04/2007 11:43 AM CDT 09/04/2007 12:22 PM CDT Narrative [facility] - 09/04/2007 12:57 PM CDT rm36 us Stephania Howard MD CHEMISTRY ORDERABLES Edited [facility] [address] [place] [place] [address] documented in this encounter Visit Diagnoses Diagnosis Malignant neoplasm of head, face, and neck (CMS/HCC) Malignant neoplasm of head, face, and neck documented in this encounter Care Teams Tobacco Packer Relationship Specialty [place] [address] [place] [address] PCP - General 04/25/09 documented as of this encounter
--- OUTSIDE RECORDS SUMMARY | 2024-08-12 08:29 | XMS_ITS | Encounter Summary ---
Author Organization [facility] Address [address] [place] [address] Care Team Providers Care Offc Spec Name Role Phone Franck Garcia MD Primary Care Provider [phone] Encounter Details Date Type Department Care Team (Late st Contact Info) Description 08/10/2008 Outpatient Historical [facility] Stephania Howard MD 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 [place], [place] [address] Patient: FRANCK LOUISE : 1965 Procedure Date: 08/17/2008 Accession Date: 08/17/2008 Case No: [id number] Ordering Dr: STEPHANIA HOWARD Case types AW, BW, FW, NW and SH are performed by [facility], [place], [place] SURGICAL PATHOLOGY & NON-GYNECOLOGIC CYTOPATHOLOGY REPORT DIAGNOSIS SKIN, LEFT FACE, EXCISION: - EPIDERMAL KERATINOUS CYST, RUPTURED. Specimen Description: Left facial sebaceous cyst. Operative Procedure: Excision. Patient Information/Histo ry/Diagnosis: Sebaceous cyst. Gross: Received in a single container labeled Franck Louise., left facial sebaceous cyst is a 2.0 x 0.9-cm cardoso skin ellipse excised to a depth of 0.8 cm. The tissue is inked blue at its margin and sectioned to reveal a cystic cavity that is 0.5 cm in greatest dimension and is filled with cardoso, thick fluid. The entire specimen is submitted in cassettes A1 and A2. [facility] 08.17.2008 10:52 pm Microscopic: The slides are labeled [id number]. Sections demonstrate a ruptured epidermal cyst. There is a marked foreign-body granulomatous inflammatory response to the extruded keratin contents. The features are benign. [facility] 08.18.2008 02:06 pm Staging Form: No ELECTRONIC SIGNATURE FOR TAD MATA M.D.- 08/18/08 04:02 pm INTERFACE SYSTEM 08/17/2008 11:1 8 AM CHURN DRILLER Stephania Howard MD PATHOLOGY/CYTOLOGY ORDERABLES Fi nal Result Performing Organization Address City/[facility] Co de Phone Number INTERFACE SYSTEM Refer to clinic/hospital department * CBC WITH DIFFERENTIAL (08/17/2008 9:15 AM CHURN DRILLER) Blood specimen (specimen) 08/17/2008 9:15 AM CHURN DRILLER 08/17/2008 9:27 AM CHURN DRILLER Stephania Howard MD HEMATOLOGY ORDERABLES Edited Performing Organization Address [facility] Co de Phone Number INTERFACE SYSTEM Refer to clinic/hospital department * (ABNORMAL) BASIC METABOLIC PANEL (08/17/2008 9:15 AM CHURN DRILLER) CREATININE 0.91 0.67 - 1.17 mg/dL [facility] POTASSIUM 4.2 3.5 - 4.9 mmol/L [facility] BUN 13 6 - 20 mg/dL [facility] CHLORIDE 101 96 - 108 mmol/L [facility] GLUCOSE 107(H) 65 - 99 mg/dL [facility] SODIUM 138 135 - 145 mmol/L [facility] GFR, >60 >=60 mL/min/1. 7 sq meter [facility] CALCIUM 9.2 8.6 - 10.2 mg/dL [facility] CO2 31(H) 22 - 30 mmol/L [facility] GFR >60 >=60 mL/min/1. 7 sq meter [facility] Comment: Modification of Diet in Renal Disease (MDRD) study formula. Estimated GFR rate interpretative information for both Americans and non- Americans is available on the [facility] Intranet at: [email or web address] Select: Lab Policies and Procedures Select: Reference Ranges - GFR Blood specimen (specimen) 08/17/2008 9:15 AM CHURN DRILLER 08/17/2008 9:27 AM CHURN DRILLER Narrative INTERFACE SYSTEM - 08/17/2008 10:03 AM CHURN DRILLER 26 Stephania Howard MD CHEMISTRY ORDERABLES Edited INTERFACE SYSTEM Refer to clinic/hospital department [facility] CLIA# [id number] [address] [place] [address] documented in this encounter Visit Diagnoses Diagnosis Sebaceous cyst documented in this encounter Care Teams Offc Spec Relationship Specialty [place] [address] [place] [address] PCP - General 04/25/09 documented as of this encounter
--- OUTSIDE RECORDS SUMMARY | 2024-08-12 08:29 | XMS_ITS | Encounter Summary ---
Author Organization [employer] Address 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
--- OUTSIDE RECORDS SUMMARY | 2024-08-12 08:29 | XMS_ITS | Encounter Summary ---
Author Organization [employer] Address [address] [place] [address] Care Team Providers Care Poultry Hatchery Laborer Name Role Phone Clifton Garcia MD Primary Care Provider Encounter Details Date Type Department Care Team (Latest Contact Info) Description 12/08/2007 Outpatient Historical [facility] David Seymour MD [facility] [id number] [place] [address] Hilario Howard MD [address] [facility]. 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
--- OUTSIDE RECORDS SUMMARY | 2024-08-12 08:29 | XMS_ITS | Encounter Summary ---
Author Organization [employer] Address 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 Comment:Note new reference r devan effective 01/21/08 ALBUMIN 4.2 3.4 - 4.8 g/dL [facility] CHLORIDE 98 96 - 108 mmol/L [facility] CREATININE 0.96 0.67 - 1.17 mg/dL [facility] ALT 17 0 - 41 U/L [facility] SODIUM 138 135 - 145 mmol/L [facility] ALKALINE PHOSPHATASE 73 40 - 129 U/L [facility] CO2 28 22 - 30 mmol/L [facility] BILIRUBIN TOTAL 0.2 0.2 - 1.0 mg/dL [facility] POTASSIUM 4.3 3.5 - 4.9 mmol/L [facility] TOTAL PROTEIN 7.2 6.3 - 8.6 g/dL [facility] GLUCOSE 212(H) 65 - 99 mg/dL [facility] AST 14 12 - 38 U/L [facility] BUN 20 6 - 20 mg/dL [facility] GFR, >60 >=60 mL/min/1. [address] [facility] GFR >60 >=60 mL/min/1. [address] [facility] Comment: Modification of Diet in Renal Disease (MDRD) study formula. Estimated GFR rate interpretative information for both Americans and non- Americans is available on the [facility] [facility] at: [email or web address] Select: Lab Policies and Procedures Select: Reference Ranges - GFR Blood specimen (specimen) 01/29/2008 9:22 AM CDT 01/29/2008 9:25 AM CDT Ever [employer] CHEMISTRY ORDERABLES Edited [facility] CLIA# [id number] [address] [place] [address] * (ABNORMAL) CBC WITH DIFFERENTIAL (01/29/2008 9:22 AM CDT) [facility] MCV 96.1 82.0 - 99.[address] [facility] PLATELETS 223 140 - 350 K/uL [facility] HEMOGLOBIN 12.9(L) 13.6 - 16.5 g/dL [facility] RDW 12.9 11.5 - 14.5 % [facility] WBC 8.8 4.0 - 9.8 K/uL [facility] MCH 33.2(H) 27.2 - 32.[address] [facility] MPV 9.6 9.3 - 12.[address] [facility] HEMATOCRIT 37.3(L) 40.0 - 48.0 % [facility] RDW-STDEV 45.1 37.1 - 48.[address] [facility] RBC 3.88(L) 4.50 - 5.40 M/uL [facility] MCHC 34.6 31.5 - 35.5 % [facility] ANISOCYTOSIS Slight [facility] MONOCYTES 8 3 - 13 % [facility] NEUTROPHIL ABSOLUTE 7.39(H) 1.90 - 7.00 K/uL [facility] NEUTROPHILS, SEG 84(H) 45 - 70 % [facility] PLATELET EST. Consistent w/ count Normal [facility] EOSINOPHIL ABSOLUTE 0.18 0.00 - 0.70 K/uL [facility] EOSINOPHILS 2 0 - 7 % [facility] LYMPHOCYTE ABSOLUTE 0.53(L) 0.70 - 4.50 K/uL [facility] LYMPHOCYTES 6(L) 16 - 45 % [facility] BASOPHILS ABSOLUTE 0.00 0.00 - 0.20 K/uL [facility] BASOPHILS 0 0 - 2 % [facility] MONOCYTE ABSOLUTE 0.70 0.10 - 1.30 K/uL [facility] Blood specimen (specimen) 01/29/2008 9:22 AM CDT 01/29/2008 9:25 AM CDT us Hsiaoou Hu HEMATOLOGY ORDERABLES Edited [facility] CLIA# [id number] [address] [place] [address] documented in this encounter Visit Diagnoses Diagnosis Malignant neoplasm of head, face, and neck (CMS/HCC) Malignant neoplasm of head, face, and neck documented in this encounter Care Teams House Calls Nurse Practitioner Relationship Specialty Start [place] [address] [place] [address] PCP - General 04/25/09 documented as of this encounter
--- OUTSIDE RECORDS SUMMARY | 2024-08-12 08:29 | XMS_ITS | Encounter Summary ---
Author Organization [employer] Address 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 Gender Identity Not on file Sexual Orientation Not on file documented as of this encounter Plan of Treatment Not on file documented as of this encounter Procedures Procedure Name Priority Date/Time Associated Diagnosis Comments CBC WITH DIFFERENTIAL Stat 12/18/2007 9:22 AM CDT COMPREHENSIVE METABOLIC PANEL Stat 12/18/2007 9:22 AM CDT documented in this encounter Results * (ABNORMAL) COMPREHENSIVE METABOLIC PANEL (12/18/2007 9:22 AM CDT) CO2 31(H) 22 - 30 mmol/L [facility] TOTAL PROTEIN 7.3 6.3 - 8.6 g/dL [facility] POTASSIUM 5.1(H) 3.5 - 4.9 mmol/L [facility] Comment: No significant hemolysis GLUCOSE 247(H) 65 - 99 mg/dL [facility] AST 17 12 - 38 U/L [facility] BUN 25(H) 6 - 20 mg/dL [facility] CALCIUM 9.8 8.4 - 10.2 mg/dL [facility] CHLORIDE 91(L) 96 - 108 mmol/L [facility] ALBUMIN 4.2 3.4 - 4.8 g/dL [facility] CREATININE 1.15 0.67 - 1.17 mg/dL [facility] SODIUM 132(L) 135 - 145 mmol/L [facility] ALT 15 0 - 41 U/L [facility] ALKALINE PHOSPHATASE 108 40 - 129 U/L [facility] BILIRUBIN TOTAL 0.2 0.2 - 1.0 mg/dL [facility] GFR, >60 >=60 mL/min/1. 7 sq meter [facility] GFR >60 >=60 mL/min/1. 7 sq meter [facility] Comment: Modification of Diet in Renal Disease (MDRD) study formula. Estimated GFR rate interpretative information for both Americans and non- Americans is available on the [facility] Intranet at: [email or web address] Select: Lab Policies and Procedures Select: Reference Ranges - GFR Blood specimen (specimen) 12/18/2007 9:22 AM CDT 12/18/2007 9:30 AM CDT Ever [employer] CHEMISTRY ORDERABLES Edited [facility] CLIA# [id number] [address] [place] [address] * (ABNORMAL) CBC WITH DIFFERENTIAL (12/18/2007 9:22 AM CDT) HEMOGLOBIN 11.1(L) 13.6 - 16.5 g/dL [facility] RDW 16.7(H) 11.5 - 14.5 % [facility] WBC 10.6(H) 4.0 - 9.8 K/uL [facility] MCH 32.4 27.2 - 32.6 pg [facility] MPV 9.9 9.3 - 12.4 fL [facility] HEMATOCRIT 33.7(L) 40.0 - 48.0 % [facility] RDW-STDEV 57.1(H) 37.1 - 48.7 fL [facility] RBC 3.43(L) 4.50 - 5.40 M/uL [facility] MCHC 32.9 31.5 - 35.5 % [facility] MCV 98.3 82.0 - 99.0 fL [facility] PLATELETS 198 140 - 350 K/uL [facility] MONOCYTE ABSOLUTE 0.74 0.10 - 1.30 K/uL [facility] LYMPHOCYTES 5(L) 16 - 45 % [facility] DOHLE BODIES Present [facility] PLATELET EST. Consistent w/ count Normal [facility] NEUTROPHIL ABSOLUTE 9.01(H) 1.90 - 7.00 K/uL [facility] NEUTROPHILS, SEG 82(H) 45 - 70 % [facility] HYPOCHROMIA Slight [facility] BASOPHILS 1 0 - 2 % [facility] EOSINOPHIL ABSOLUTE 0.11 0.00 - 0.70 K/uL [facility] MONOCYTES 7 3 - 13 % [facility] ANISOCYTOSIS Slight [facility] LYMPHOCYTE ABSOLUTE 0.53(L) 0.70 - 4.50 K/uL [facility] BANDS 3 0 - 5 % [facility] MYELOCYTES 1(H) <=0 % [facility] TOXIC GRANULATION Slight [facility] BASOPHILS ABSOLUTE 0.11 0.00 - 0.20 K/uL [facility] EOSINOPHILS 1 0 - 7 % [facility] POLYCHROMASIA Slight [facility] Blood specimen (specimen) 12/18/2007 9:22 AM CDT 12/18/2007 9:30 AM CDT Hsiaoou Hu HEMATOLOGY ORDERABLES Edited [facility] CLIA# [id number] [address] [place] [address] documented in this encounter Visit Diagnoses Diagnosis Malignant neoplasm of head, face, and neck (CMS/HCC) Malignant neoplasm of head, face, and neck documented in this encounter Care Teams Scientist Relationship Specialty Start [place] [address] [place] [address] PCP - General 04/25/09 documented as of this encounter
--- OUTSIDE RECORDS SUMMARY | 2024-08-12 08:29 | XMS_ITS | Patient Health Summary ---
Author Organization [facility] Address [address] [place] [address] Care Team Providers Care Barrel Drainer Name Role Phone Clifton Garcia MD Primary Care Provider Note from [facility],non-owned Affiliates and Associated Physician Practices is amultiple site organization consisting of ambulatory clinics and hospital sitesin [place], [place], [place] and [place]. This disclosure is being madepursuant to the Care Everywhere program and may not contain all information available regarding this patient. Last updated 18.[facility] Allergies No known active allergies Medications * Be aware that medications may not be up to date on this document. Alwaysverify current medications with the patient. * metFORMIN (Glucophage) 500 MG tablet Take 1 (one) tablet by mouth 2 times daily with morning and evening meal * polyethylene glycol 3350 (Miralax) 17 g packet(Started 05/19/2024) 17 (seventeen) g by Enteral Tube route once daily * senna (Senokot) 8.6 MG tablet(Started 05/19/2024) 1 (one) tablet by Enteral Tube route once daily * insulin aspart (NovoLOG) pen(Started 05/18/2024) Inject 0 (zero) Units to 24 (twenty four) Units subcutaneously every 4 hours * clopidogrel (plaVIX) 75 MG tablet(Started 06/01/2024) Take 1 (one) tablet by mouth once daily * atorvastatin (Lipitor) 80 MG tablet(Started 06/01/2024) Take 1 (one) tablet by mouth at bedtime * aspirin (Aspirin) 81 MG chew tablet(Started 06/01/2024) Take 1 (one) tablet by mouth once daily * finasteride (Proscar) 5 MG tablet(Started 06/01/2024) Take 1 (one) tablet by mouth once daily * insulin glargine (Lantus/Semglee) 100 units/mL pen(Started 06/01/2024) Inject 30 (thirty) Units subcutaneously at bedtime * vitamin D3 (Cholecalciferol) 25 MCG (1000 UNITS) tablet(Started 06/02/2024) 4 (four) tablets by Enteral Tube route once daily * multiple vitamins with iron tablet tablet(Started 06/02/2024) 1 (one) tablet by Enteral Tube route once daily * midodrine (Proamatine) 10 MG tablet(Started 06/02/2024) 1 (one) tablet by Enteral Tube route every 8 hours Active Problems Problem Noted Date Diagnosed Date Severe malnutrition 06/01/2024 Adrenal insufficiency 05/08/2024 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 (FLUZONE; FLULAVAL; FLUARIX; AFLURIA TRIVALENT; 6MO+), 0.5 ML (IIV3)(Given 06/01/2024) Social History Tobacco Use Types Packs/Day Years [...] Recorded Patient Health Questionnaire-2 Score 0 05/12/2024 [facility] [place] [facility] - Occupational Stress [...] any time in the past 12 m [facility], were you homeless or living in a longterm (including now)? No 04/28/2024 Sex and Gender Information Value Date Recorded Sex Assigned at Not on file Gender Identity Not on file Sexual Orientation Not on file Last Filed Vital Signs Vital Sign Reading Time Taken Comments Blood Pressure 138/103 06/02/2024 7:26 PM [employer] Pulse 101 06/02/2024 7:26 PM [employer] Temperature 36.4 C (97.5 F) 06/02/2024 7:34 AM [employer] Respiratory Rate 18 06/02/2024 4:27 AM [employer] Oxygen Saturation 98% 06/02/2024 7:34 AM [employer] Inhaled Oxygen Concentration 28% 05/06/2024 7 :59 PM [employer] Weight 56.2 kg (124 lb) 05/27/2024 9:15 PM [employer] Height 177.8 cm (5' 10 ) 05/11/2024 8:00 AM [employer] Body Mass Index 17.79 05/11/2024 8:00 AM [employer] Procedures * GLUCOSE - POINT OF CARE(Performed 06/02/2024) * GLUCOSE - POINT OF CARE(Performed 06/02/2024) * GLUCOSE - POINT OF CARE(Performed 06/02/2024) * GLUCOSE - POINT OF CARE(Performed 06/02/2024) * GLUCOSE - POINT OF CARE(Performed 06/02/2024) * GLUCOSE - POINT OF CARE(Performed 06/01/2024) * GLUCOSE - POINT OF CARE(Performed 06/01/2024) * GLUCOSE - POINT OF CARE(Performed 06/01/2024) * GLUCOSE - POINT OF CARE(Performed 06/01/2024) * GLUCOSE - POINT OF CARE(Performed 06/01/2024) * GLUCOSE - POINT OF CARE(Performed 06/01/2024) * GLUCOSE - POINT OF CARE(Performed 06/01/2024) * GLUCOSE - POINT OF CARE(Performed 05/31/2024) * GLUCOSE - POINT OF CARE(Performed 05/31/2024) * GLUCOSE - POINT OF CARE(Performed 05/31/2024) * GLUCOSE - POINT OF CARE(Performed 05/31/2024) * GLUCOSE - POINT OF CARE(Performed 05/31/2024) * GLUCOSE - POINT OF CARE(Performed 05/31/2024) * GLUCOSE - POINT OF CARE(Performed 05/30/2024) * GLUCOSE - POINT OF CARE(Performed 05/30/2024) * GLUCOSE - POINT OF CARE(Performed 05/30/2024) * GLUCOSE - POINT OF CARE(Performed 05/30/2024) * GLUCOSE - POINT OF CARE(Performed 05/30/2024) * GLUCOSE - POINT OF CARE(Performed 05/30/2024) * GLUCOSE - POINT OF CARE(Performed 05/30/2024) * PHOSPHORUS BLOOD(Performed 05/29/2024) * MAGNESIUM BLOOD(Performed 05/29/2024) * CBC W/O DIFFERENTIAL(Performed 05/29/2024) * COMPREHENSIVE METABOLIC PANEL(Performed 05/29/2024) * GLUCOSE - POINT OF CARE(Performed 05/29/2024) * GLUCOSE - POINT OF CARE(Performed 05/29/2024) * GLUCOSE - POINT OF CARE(Performed 05/29/2024) * GLUCOSE - POINT OF CARE(Performed 05/29/2024) * GLUCOSE - POINT OF CARE(Performed 05/29/2024) * GLUCOSE - POINT OF CARE(Performed 05/28/2024) * GLUCOSE - POINT OF CARE(Performed 05/28/2024) * GLUCOSE - POINT OF CARE(Performed 05/28/2024) * GLUCOSE - POINT OF CARE(Performed 05/28/2024) * GLUCOSE - POINT OF CARE(Performed 05/28/2024) * GLUCOSE - POINT OF CARE(Performed 05/27/2024) * GLUCOSE - POINT OF CARE(Performed 05/27/2024) * GLUCOSE - POINT OF CARE(Performed 05/27/2024) * GLUCOSE - POINT OF CARE(Performed 05/27/2024) * GLUCOSE - POINT OF CARE(Performed 05/27/2024) * GLUCOSE - POINT OF CARE(Performed 05/27/2024) * GLUCOSE - POINT OF CARE(Performed 05/27/2024) * GLUCOSE - POINT OF CARE(Performed 05/27/2024) * GLUCOSE - POINT OF CARE(Performed 05/26/2024) * GLUCOSE - POINT OF CARE(Performed 05/26/2024) * GLUCOSE - POINT OF CARE(Performed 05/26/2024) * GLUCOSE - POINT OF CARE(Performed 05/26/2024) * GLUCOSE - POINT OF CARE(Performed 05/26/2024) * GLUCOSE - POINT OF CARE(Performed 05/26/2024) * GLUCOSE - POINT OF CARE(Performed 05/26/2024) * GLUCOSE - POINT OF CARE(Performed 05/25/2024) * GLUCOSE - POINT OF CARE(Performed 05/25/2024) * GLUCOSE - POINT OF CARE(Performed 05/25/2024) * GLUCOSE - POINT OF CARE(Performed 05/25/2024) * GLUCOSE - POINT OF CARE(Performed 05/25/2024) * GLUCOSE - POINT OF CARE(Performed 05/25/2024) * GLUCOSE - POINT OF CARE(Performed 05/24/2024) * GLUCOSE - POINT OF CARE(Performed 05/24/2024) * GLUCOSE - POINT OF CARE(Performed 05/24/2024) * GLUCOSE - POINT OF CARE(Performed 05/24/2024) * GLUCOSE - POINT OF CARE(Performed 05/24/2024) * GLUCOSE - POINT OF CARE(Performed 05/24/2024) * GLUCOSE - POINT OF CARE(Performed 05/23/2024) * GLUCOSE - POINT OF CARE(Performed 05/23/2024) * CT BRAIN STROKE(Performed 05/23/2024) Performed for Cerebrovascular accident (CVA), unspecified mechanism (HCC) * GLUCOSE - POINT OF CARE(Performed 05/23/2024) * GLUCOSE - POINT OF CARE(Performed 05/23/2024) * GLUCOSE - POINT OF CARE(Performed 05/23/2024) * GLUCOSE - POINT OF CARE(Performed 05/22/2024) * GLUCOSE - POINT OF CARE(Performed 05/22/2024) * GLUCOSE - POINT OF CARE(Performed 05/22/2024) * GLUCOSE - POINT OF CARE(Performed 05/22/2024) * GLUCOSE - POINT OF CARE(Performed 05/22/2024) * CBC W/O DIFFERENTIAL(Performed 05/22/2024) * PHOSPHORUS BLOOD(Performed 05/22/2024) * MAGNESIUM BLOOD(Performed 05/22/2024) * BASIC METABOLIC PANEL (CALCIUM TOTAL)(Performed 05/22/2024) * GLUCOSE - POINT OF CARE(Performed 05/22/2024) * GLUCOSE - POINT OF CARE(Performed 05/22/2024) * GLUCOSE - POINT OF CARE(Performed 05/21/2024) * GLUCOSE - POINT OF CARE(Performed 05/21/2024) * GLUCOSE - POINT OF CARE(Performed 05/21/2024) * GLUCOSE - POINT OF CARE(Performed 05/21/2024) * GLUCOSE - POINT OF CARE(Performed 05/21/2024) * PHOSPHORUS BLOOD(Performed 05/21/2024) * MAGNESIUM BLOOD(Performed 05/21/2024) * CBC W/O DIFFERENTIAL(Performed 05/21/2024) * BASIC METABOLIC PANEL (CALCIUM TOTAL)(Performed 05/21/2024) * GLUCOSE - POINT OF CARE(Performed 05/21/2024) * GLUCOSE - POINT OF CARE(Performed 05/20/2024) * GLUCOSE - POINT OF CARE(Performed 05/20/2024) * GLUCOSE - POINT OF CARE(Performed 05/20/2024) * GLUCOSE - POINT OF CARE(Performed 05/20/2024) * C-PEPTIDE(Performed 05/20/2024) * PHOSPHORUS BLOOD(Performed 05/20/2024) * MAGNESIUM BLOOD(Performed 05/20/2024) * CBC W/O DIFFERENTIAL(Performed 05/20/2024) * BASIC METABOLIC PANEL (CALCIUM TOTAL)(Performed 05/20/2024) * GLUCOSE - POINT OF CARE(Performed 05/20/2024) * GLUCOSE - POINT OF CARE(Performed 05/20/2024) * GLUCOSE - POINT OF CARE(Performed 05/20/2024) * GLUCOSE - POINT OF CARE(Performed 05/19/2024) * GLUCOSE - POINT OF CARE(Performed 05/19/2024) * GLUCOSE - POINT OF CARE(Performed 05/19/2024) * GLUCOSE - POINT OF CARE(Performed 05/19/2024) * VITAMIN B12(Performed 05/19/2024) * IRON + TRANSFERRIN PANEL(Performed 05/19/2024) * FOLATE(Performed 05/19/2024) * VITAMIN D 25-HYDROXY(Performed 05/19/2024) * PHOSPHORUS BLOOD(Performed 05/19/2024) * MAGNESIUM BLOOD(Performed 05/19/2024) * CBC W/O DIFFERENTIAL(Performed 05/19/2024) * BASIC METABOLIC PANEL (CALCIUM TOTAL)(Performed 05/19/2024) * GLUCOSE - POINT OF CARE(Performed 05/19/2024) * GLUCOSE - POINT OF CARE(Performed 05/19/2024) * GLUCOSE - POINT OF CARE(Performed 05/18/2024) * GLUCOSE - POINT OF CARE(Performed 05/18/2024) * GLUCOSE - POINT OF CARE(Performed 05/18/2024) * GLUCOSE - POINT OF CARE(Performed 05/18/2024) * GLUCOSE - POINT OF CARE(Performed 05/18/2024) * PHOSPHORUS BLOOD(Performed 05/18/2024) * MAGNESIUM BLOOD(Performed 05/18/2024) * CBC W/O DIFFERENTIAL(Performed 05/18/2024) * BASIC METABOLIC PANEL (CALCIUM TOTAL)(Performed 05/18/2024) * GLUCOSE - POINT OF CARE(Performed 05/18/2024) * GLUCOSE - POINT OF CARE(Performed 05/17/2024) * GLUCOSE - POINT OF CARE(Performed 05/17/2024) * GLUCOSE - POINT OF CARE(Performed 05/17/2024) * GLUCOSE - POINT OF CARE(Performed 05/17/2024) * GLUCOSE - POINT OF CARE(Performed 05/17/2024) * GLUCOSE - POINT OF CARE(Performed 05/17/2024) * PHOSPHORUS BLOOD(Performed 05/17/2024) * MAGNESIUM BLOOD(Performed 05/17/2024) * CBC W/O DIFFERENTIAL(Performed 05/17/2024) * BASIC METABOLIC PANEL (CALCIUM TOTAL)(Performed 05/17/2024) * GLUCOSE - POINT OF CARE(Performed 05/17/2024) * GLUCOSE - POINT OF CARE(Performed 05/16/2024) * GLUCOSE - POINT OF CARE(Performed 05/16/2024) * GLUCOSE - POINT OF CARE(Performed 05/16/2024) * GLUCOSE - POINT OF CARE(Performed 05/16/2024) * GLUCOSE - POINT OF CARE(Performed 05/16/2024) * PHOSPHORUS BLOOD(Performed 05/15/2024) * MAGNESIUM BLOOD(Performed 05/15/2024) * CBC W/O DIFFERENTIAL(Performed 05/15/2024) * BASIC METABOLIC PANEL (CALCIUM TOTAL)(Performed 05/15/2024) * GLUCOSE - POINT OF CARE(Performed 05/15/2024) * GLUCOSE - POINT OF CARE(Performed 05/15/2024) * BASIC METABOLIC PANEL (CALCIUM TOTAL)(Performed 05/15/2024) * GLUCOSE - POINT OF CARE(Performed 05/15/2024) * GLUCOSE - POINT OF CARE(Performed 05/15/2024) * GLUCOSE - POINT OF CARE(Performed 05/15/2024) * GLUCOSE - POINT OF CARE(Performed 05/14/2024) * PHOSPHORUS BLOOD(Performed 05/14/2024) * MAGNESIUM BLOOD(Performed 05/14/2024) * CBC W/O DIFFERENTIAL(Performed 05/14/2024) * BASIC METABOLIC PANEL (CALCIUM TOTAL)(Performed 05/14/2024) * GLUCOSE - POINT OF CARE(Performed 05/14/2024) * GLUCOSE - POINT OF CARE(Performed 05/14/2024) * PHOSPHORUS BLOOD(Performed 05/14/2024) * MAGNESIUM BLOOD(Performed 05/14/2024) * CBC W/O DIFFERENTIAL(Performed 05/14/2024) * BASIC METABOLIC PANEL (CALCIUM TOTAL)(Performed 05/14/2024) * GLUCOSE - POINT OF CARE(Performed 05/14/2024) * GLUCOSE - POINT OF CARE(Performed 05/14/2024) * GLUCOSE - POINT OF CARE(Performed 05/14/2024) * GLUCOSE - POINT OF CARE(Performed 05/13/2024) * PHOSPHORUS BLOOD(Performed 05/13/2024) * MAGNESIUM BLOOD(Performed 05/13/2024) * CBC W/O DIFFERENTIAL(Performed 05/13/2024) * BASIC METABOLIC PANEL (CALCIUM TOTAL)(Performed 05/13/2024) * GLUCOSE - POINT OF CARE(Performed 05/13/2024) * GLUCOSE - POINT OF CARE(Performed 05/13/2024) * GLUCOSE - POINT OF CARE(Performed 05/13/2024) * PHOSPHORUS BLOOD(Performed 05/13/2024) * MAGNESIUM BLOOD(Performed 05/13/2024) * CBC W/O DIFFERENTIAL(Performed 05/13/2024) * BASIC METABOLIC PANEL (CALCIUM TOTAL)(Performed 05/13/2024) * URINALYSIS REFLEX TO MICROSCOPIC NO CULTURE(Performed 05/13/2024) * LACTIC ACID BLOOD(Performed 05/13/2024) * GLUCOSE - POINT OF CARE(Performed 05/13/2024) * GLUCOSE - POINT OF CARE(Performed 05/13/2024) * PHOSPHORUS BLOOD(Performed 05/13/2024) * MAGNESIUM BLOOD(Performed 05/13/2024) * CBC W/O DIFFERENTIAL(Performed 05/13/2024) * BASIC METABOLIC PANEL (CALCIUM TOTAL)(Performed 05/13/2024) * GLUCOSE - POINT OF CARE(Performed 05/13/2024) * XR CHEST 1VW PORTABLE(Performed 05/12/2024) Performed for Other specified hypotension * GLUCOSE - POINT OF CARE(Performed 05/12/2024) * GLUCOSE - POINT OF CARE(Performed 05/12/2024) * FL SWALLOWING FUNCTION STUDY(Performed 05/12/2024) Performed for 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) * GLUCOSE - POINT OF CARE(Performed 05/12/2024) * PHOSPHORUS BLOOD(Performed 05/12/2024) * MAGNESIUM BLOOD(Performed 05/12/2024) * CBC W/O DIFFERENTIAL(Performed 05/12/2024) * BASIC METABOLIC PANEL (CALCIUM TOTAL)(Performed 05/12/2024) * GLUCOSE - POINT OF CARE(Performed 05/12/2024) * GLUCOSE - POINT OF CARE(Performed 05/12/2024) * GLUCOSE - POINT OF CARE(Performed 05/11/2024) * PHOSPHORUS BLOOD(Performed 05/11/2024) * MAGNESIUM BLOOD(Performed 05/11/2024) * CBC W/O DIFFERENTIAL(Performed 05/11/2024) * BASIC METABOLIC PANEL (CALCIUM TOTAL)(Performed 05/11/2024) * GLUCOSE - POINT OF CARE(Performed 05/11/2024) * GLUCOSE - POINT OF CARE(Performed 05/11/2024) * GLUCOSE - POINT OF CARE(Performed 05/11/2024) * PHOSPHORUS BLOOD(Performed 05/11/2024) * MAGNESIUM BLOOD(Performed 05/11/2024) * CBC W/O DIFFERENTIAL(Performed 05/11/2024) * BASIC METABOLIC PANEL (CALCIUM TOTAL)(Performed 05/11/2024) * GLUCOSE - POINT OF CARE(Performed 05/11/2024) * GLUCOSE - POINT OF CARE(Performed 05/11/2024) * GLUCOSE - POINT OF CARE(Performed 05/11/2024) * GLUCOSE - POINT OF CARE(Performed 05/11/2024) * GLUCOSE - POINT OF CARE(Performed 05/11/2024) * GLUCOSE - POINT OF CARE(Performed 05/11/2024) * GLUCOSE - POINT OF CARE(Performed 05/11/2024) * GLUCOSE - POINT OF CARE(Performed 05/11/2024) * GLUCOSE - POINT OF CARE(Performed 05/11/2024) * GLUCOSE - POINT OF CARE(Performed 05/11/2024) * GLUCOSE - POINT OF CARE(Performed 05/11/2024) * GLUCOSE - POINT OF CARE(Performed 05/10/2024) * PHOSPHORUS BLOOD(Performed 05/10/2024) * MAGNESIUM BLOOD(Performed 05/10/2024) * CBC W/O DIFFERENTIAL(Performed 05/10/2024) * BASIC METABOLIC PANEL (CALCIUM TOTAL)(Performed 05/10/2024) * GLUCOSE - POINT OF CARE(Performed 05/10/2024) * GLUCOSE - POINT OF CARE(Performed 05/10/2024) * GLUCOSE - POINT OF CARE(Performed 05/10/2024) * GLUCOSE - POINT OF CARE(Performed 05/10/2024) * GLUCOSE - POINT OF CARE(Performed 05/10/2024) * GLUCOSE - POINT OF CARE(Performed 05/10/2024) * GLUCOSE - POINT OF CARE(Performed 05/10/2024) * GLUCOSE - POINT OF CARE(Performed 05/10/2024) * GLUCOSE - POINT OF CARE(Performed 05/10/2024) * GLUCOSE - POINT OF CARE(Performed 05/10/2024) * GLUCOSE - POINT OF CARE(Performed 05/10/2024) * GLUCOSE - POINT OF CARE(Performed 05/10/2024) * GLUCOSE - POINT OF CARE(Performed 05/10/2024) * PHOSPHORUS BLOOD(Performed 05/10/2024) * MAGNESIUM BLOOD(Performed 05/10/2024) * CBC W/O DIFFERENTIAL(Performed 05/10/2024) * BASIC METABOLIC PANEL (CALCIUM TOTAL)(Performed 05/10/2024) * GLUCOSE - POINT OF CARE(Performed 05/10/2024) * GLUCOSE - POINT OF CARE(Performed 05/10/2024) * GLUCOSE - POINT OF CARE(Performed 05/10/2024) * GLUCOSE - POINT OF CARE(Performed 05/10/2024) * GLUCOSE - POINT OF CARE(Performed 05/10/2024) * GLUCOSE - POINT OF CARE(Performed 05/10/2024) * GLUCOSE - POINT OF CARE(Performed 05/10/2024) * GLUCOSE - POINT OF CARE(Performed 05/10/2024) * GLUCOSE - POINT OF CARE(Performed 05/10/2024) * GLUCOSE - POINT OF CARE(Performed 05/09/2024) * GLUCOSE - POINT OF CARE(Performed 05/09/2024) * GLUCOSE - POINT OF CARE(Performed 05/09/2024) * PHOSPHORUS BLOOD(Performed 05/09/2024) * MAGNESIUM BLOOD(Performed 05/09/2024) * CBC W/O DIFFERENTIAL(Performed 05/09/2024) * BASIC METABOLIC PANEL (CALCIUM TOTAL)(Performed 05/09/2024) * GLUCOSE - POINT OF CARE(Performed 05/09/2024) * GLUCOSE - POINT OF CARE(Performed 05/09/2024) * GLUCOSE - POINT OF CARE(Performed 05/09/2024) * GLUCOSE - POINT OF CARE(Performed 05/09/2024) * GLUCOSE - POINT OF CARE(Performed 05/09/2024) * GLUCOSE - POINT OF CARE(Performed 05/09/2024) * GLUCOSE - POINT OF CARE(Performed 05/09/2024) * GLUCOSE - POINT OF CARE(Performed 05/09/2024) * GLUCOSE - POINT OF CARE(Performed 05/09/2024) * GLUCOSE - POINT OF CARE(Performed 05/09/2024) * GLUCOSE - POINT OF CARE(Performed 05/09/2024) * GLUCOSE - POINT OF CARE(Performed 05/09/2024) * PHOSPHORUS BLOOD(Performed 05/09/2024) * MAGNESIUM BLOOD(Performed 05/09/2024) * CBC W/O DIFFERENTIAL(Performed 05/09/2024) * BASIC METABOLIC PANEL (CALCIUM TOTAL)(Performed 05/09/2024) * GLUCOSE - POINT OF CARE(Performed 05/09/2024) * GLUCOSE - POINT OF CARE(Performed 05/09/2024) * GLUCOSE - POINT OF CARE(Performed 05/09/2024) * GLUCOSE - POINT OF CARE(Performed 05/09/2024) * GLUCOSE - POINT OF CARE(Performed 05/09/2024) * GLUCOSE - POINT OF CARE(Performed 05/09/2024) * GLUCOSE - POINT OF CARE(Performed 05/09/2024) * GLUCOSE - POINT OF CARE(Performed 05/09/2024) * GLUCOSE - POINT OF CARE(Performed 05/09/2024) * GLUCOSE - POINT OF CARE(Performed 05/08/2024) * GLUCOSE - POINT OF CARE(Performed 05/08/2024) * GLUCOSE - POINT OF CARE(Performed 05/08/2024) * TSH REFLEX FREE T4(Performed 05/08/2024) * PHOSPHORUS BLOOD(Performed 05/08/2024) * MAGNESIUM BLOOD(Performed 05/08/2024) * CBC W/O DIFFERENTIAL(Performed 05/08/2024) * BASIC METABOLIC PANEL (CALCIUM TOTAL)(Performed 05/08/2024) * GLUCOSE - POINT OF CARE(Performed 05/08/2024) * GLUCOSE - POINT OF CARE(Performed 05/08/2024) * TSH REFLEX FREE T4(Performed 05/08/2024) * GLUCOSE - POINT OF CARE(Performed 05/08/2024) * GLUCOSE - POINT OF CARE(Performed 05/08/2024) * GLUCOSE - POINT OF CARE(Performed 05/08/2024) * GLUCOSE - POINT OF CARE(Performed 05/08/2024) * GLUCOSE - POINT OF CARE(Performed 05/08/2024) * GLUCOSE - POINT OF CARE(Performed 05/08/2024) * GLUCOSE - POINT OF CARE(Performed 05/08/2024) * GLUCOSE - POINT OF CARE(Performed 05/08/2024) * GLUCOSE - POINT OF CARE(Performed 05/08/2024) * GLUCOSE - POINT OF CARE(Performed 05/08/2024) * GLUCOSE - POINT OF CARE(Performed 05/08/2024) * GLUCOSE - POINT OF CARE(Performed 05/08/2024) * PHOSPHORUS BLOOD(Performed 05/08/2024) * MAGNESIUM BLOOD(Performed 05/08/2024) * ACTH 60 MINUTES(Performed 05/08/2024) * GLUCOSE - POINT OF CARE(Performed 05/08/2024) * GLUCOSE - POINT OF CARE(Performed 05/08/2024) * ACTH 30 MINUTES(Performed 05/08/2024) * PHOSPHORUS BLOOD(Performed 05/08/2024) * MAGNESIUM BLOOD(Performed 05/08/2024) * CORTISOL BLOOD AM(Performed 05/08/2024) * CBC W/O DIFFERENTIAL(Performed 05/08/2024) * BASIC METABOLIC PANEL (CALCIUM TOTAL)(Performed 05/08/2024) * GLUCOSE - POINT OF CARE(Performed 05/08/2024) * GLUCOSE - POINT OF CARE(Performed 05/07/2024) * GLUCOSE - POINT OF CARE(Performed 05/07/2024) * GLUCOSE - POINT OF CARE(Performed 05/07/2024) * GLUCOSE - POINT OF CARE(Performed 05/07/2024) * GLUCOSE - POINT OF CARE(Performed 05/07/2024) * PHOSPHORUS BLOOD(Performed 05/07/2024) * MAGNESIUM BLOOD(Performed 05/07/2024) * CBC W/O DIFFERENTIAL(Performed 05/07/2024) * BASIC METABOLIC PANEL (CALCIUM TOTAL)(Performed 05/07/2024) * GLUCOSE - POINT OF CARE(Performed 05/07/2024) * GLUCOSE - POINT OF CARE(Performed 05/07/2024) * GLUCOSE - POINT OF CARE(Performed 05/07/2024) * GLUCOSE - POINT OF CARE(Performed 05/07/2024) * GLUCOSE - POINT OF CARE(Performed 05/07/2024) * PHOSPHORUS BLOOD(Performed 05/07/2024) * MAGNESIUM BLOOD(Performed 05/07/2024) * CBC W/O DIFFERENTIAL(Performed 05/07/2024) * BASIC METABOLIC PANEL (CALCIUM TOTAL)(Performed 05/07/2024) * GLUCOSE - POINT OF CARE(Performed 05/07/2024) * GLUCOSE - POINT OF CARE(Performed 05/07/2024) * GLUCOSE - POINT OF CARE(Performed 05/07/2024) * PHOSPHORUS BLOOD(Performed 05/07/2024) * MAGNESIUM BLOOD(Performed 05/07/2024) * CBC W/O DIFFERENTIAL(Performed 05/07/2024) * GLUCOSE - POINT OF CARE(Performed 05/07/2024) * GLUCOSE - POINT OF CARE(Performed 05/07/2024) * PHOSPHORUS BLOOD(Performed 05/07/2024) * MAGNESIUM BLOOD(Performed 05/07/2024) * CBC W/O DIFFERENTIAL(Performed 05/07/2024) * BASIC METABOLIC PANEL (CALCIUM TOTAL)(Performed 05/07/2024) * GLUCOSE - POINT OF CARE(Performed 05/07/2024) * GLUCOSE - POINT OF CARE(Performed 05/07/2024) * GLUCOSE - POINT OF CARE(Performed 05/07/2024) * GLUCOSE - POINT OF CARE(Performed 05/07/2024) * PHOSPHORUS BLOOD(Performed 05/07/2024) * MAGNESIUM BLOOD(Performed 05/07/2024) * CBC W/O DIFFERENTIAL(Performed 05/07/2024) * BASIC METABOLIC PANEL (CALCIUM TOTAL)(Performed 05/07/2024) * GLUCOSE - POINT OF CARE(Performed 05/06/2024) * GLUCOSE - POINT OF CARE(Performed 05/06/2024) * PROCALCITONIN LEVEL(Performed 05/06/2024) * GLUCOSE - POINT OF CARE(Performed 05/06/2024) * GLUCOSE - POINT OF CARE(Performed 05/06/2024) * GLUCOSE - POINT OF CARE(Performed 05/06/2024) * GLUCOSE - POINT OF CARE(Performed 05/06/2024) * GLUCOSE - POINT OF CARE(Performed 05/05/2024) * PHOSPHORUS BLOOD(Performed 05/05/2024) * MAGNESIUM BLOOD(Performed 05/05/2024) * CBC W/O DIFFERENTIAL(Performed 05/05/2024) * BASIC METABOLIC PANEL (CALCIUM TOTAL)(Performed 05/05/2024) * MRSA DNA PCR(Performed 05/05/2024) * CULTURE SPUTUM+GRAM STAIN(Performed 05/05/2024) * GLUCOSE - POINT OF CARE(Performed 05/05/2024) * GLUCOSE - POINT OF CARE(Performed 05/05/2024) * FL SWALLOWING FUNCTION STUDY(Performed 05/05/2024) Performed for Cerebrovascular accident (CVA), unspecified mechanism (HCC) * GLUCOSE - POINT OF CARE(Performed 05/05/2024) * GLUCOSE - POINT OF CARE(Performed 05/05/2024) * PHOSPHORUS BLOOD(Performed 05/04/2024) * MAGNESIUM BLOOD(Performed 05/04/2024) * CBC W/O DIFFERENTIAL(Performed 05/04/2024) * BASIC METABOLIC PANEL (CALCIUM TOTAL)(Performed 05/04/2024) * GLUCOSE - POINT OF CARE(Performed 05/04/2024) * IR PICC LINE INSERT(Performed 05/04/2024) 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 * XR CHEST 1VW PORTABLE(Performed 05/04/2024) Performed for Cerebrovascular accident (CVA), unspecified mechanism (HCC) * GLUCOSE - POINT OF CARE(Performed 05/04/2024) * ECHO LIMITED W BUBBLES W COLOR FLOW AND DOPPLER(Performed 05/04/2024) Performed for Cerebrovascular accident (CVA), unspecified mechanism (HCC) * GLUCOSE - POINT OF CARE(Performed 05/04/2024) * MRI BRAIN WO CONTRAST(Performed 05/04/2024) Performed for Cerebrovascular accident (CVA), unspecified mechanism (HCC) * GLUCOSE - POINT OF CARE(Performed 05/03/2024) * PHOSPHORUS BLOOD(Performed 05/03/2024) * MAGNESIUM BLOOD(Performed 05/03/2024) * CBC W/O DIFFERENTIAL(Performed 05/03/2024) * BASIC METABOLIC PANEL (CALCIUM TOTAL)(Performed 05/03/2024) * GLUCOSE - POINT OF CARE(Performed 05/03/2024) * GLUCOSE - POINT OF CARE(Performed 05/03/2024) * GLUCOSE - POINT OF CARE(Performed 05/03/2024) * PTT SLH(Performed 05/02/2024) * PHOSPHORUS BLOOD(Performed 05/02/2024) * MAGNESIUM BLOOD(Performed 05/02/2024) * CBC W/O DIFFERENTIAL(Performed 05/02/2024) * BASIC METABOLIC PANEL (CALCIUM TOTAL)(Performed 05/02/2024) * GLUCOSE - POINT OF CARE(Performed 05/02/2024) * GLUCOSE - POINT OF CARE(Performed 05/02/2024) * URINALYSIS REFLEX TO MICROSCOPIC NO CULTURE(Performed 05/02/2024) * GLUCOSE - POINT OF CARE(Performed 05/02/2024) * XR CHEST 1VW PORTABLE(Performed 05/02/2024) Performed for Cerebrovascular accident (CVA), unspecified mechanism (HCC) * TROPONIN-I HIGH SENSITIVE(Performed 05/02/2024) * EKG 12-LEAD(Performed 05/02/2024) Performed for Cerebrovascular accident (CVA), unspecified mechanism (HCC) * GLUCOSE - POINT OF CARE(Performed 05/02/2024) * HEMOGLOBIN A1C(Performed 05/02/2024) * TROPONIN-I HIGH SENSITIVE BASELINE + 1HR(Performed 05/02/2024) * CT ANGIO BRAIN NECK STROKE(Performed 05/02/2024) Performed for Weakness, Cerebrovascular accident (CVA), unspecified mechanism (HCC) * CT BRAIN STROKE(Performed 05/02/2024) Performed for Weakness, Cerebrovascular accident (CVA), unspecified mechanism (HCC) * PT EVAL AND TREAT(Performed 05/02/2024) * OT EVAL AND TREAT(Performed 05/02/2024) * GLUCOSE - POINT OF CARE(Performed 05/02/2024) * PHOSPHORUS BLOOD(Performed 05/02/2024) * MAGNESIUM BLOOD(Performed 05/02/2024) * CBC W/O DIFFERENTIAL(Performed 05/02/2024) * BASIC METABOLIC PANEL (CALCIUM TOTAL)(Performed 05/02/2024) * GLUCOSE - POINT OF CARE(Performed 05/01/2024) * GLUCOSE - POINT OF CARE(Performed 05/01/2024) * GLUCOSE - POINT OF CARE(Performed 05/01/2024) * GLUCOSE - POINT OF CARE(Performed 05/01/2024) * PHOSPHORUS BLOOD(Performed 05/01/2024) * MAGNESIUM BLOOD(Performed 05/01/2024) * CBC W/O DIFFERENTIAL(Performed 05/01/2024) * BASIC METABOLIC PANEL (CALCIUM TOTAL)(Performed 05/01/2024) * GLUCOSE - POINT OF CARE(Performed 04/30/2024) * GLUCOSE - POINT OF CARE(Performed 04/30/2024) * GLUCOSE - POINT OF CARE(Performed 04/30/2024) * GLUCOSE - POINT OF CARE(Performed 04/30/2024) * PHOSPHORUS BLOOD(Performed 04/30/2024) * MAGNESIUM BLOOD(Performed 04/30/2024) * CBC W/O DIFFERENTIAL(Performed 04/30/2024) * BASIC METABOLIC PANEL (CALCIUM TOTAL)(Performed 04/30/2024) * GLUCOSE - POINT OF CARE(Performed 04/29/2024) * GLUCOSE - POINT OF CARE(Performed 04/29/2024) * FL SWALLOWING FUNCTION STUDY(Performed 04/29/2024) Performed for Weakness * CARDIAC EKG ORDER(Performed 04/29/2024) * GLUCOSE - POINT OF CARE(Performed 04/29/2024) * GLUCOSE - POINT OF CARE(Performed 04/29/2024) * GLUCOSE - POINT OF CARE(Performed 04/29/2024) * PHOSPHORUS BLOOD(Performed 04/29/2024) * MAGNESIUM BLOOD(Performed 04/29/2024) * CBC W/O DIFFERENTIAL(Performed 04/29/2024) * BASIC METABOLIC PANEL (CALCIUM TOTAL)(Performed 04/29/2024) * MRI BRAIN WO CONTRAST(Performed 04/29/2024) Performed for Weakness * XR SKULL 3VW OR LESS(Performed 04/28/2024) Performed for Weakness * XR PELVIS 1 OR 2VW(Performed 04/28/2024) Performed for Weakness * XR ABDOMEN KUB PORTABLE(Performed 04/28/2024) Performed for Weakness * XR CHEST 1VW PORTABLE(Performed 04/28/2024) Performed for Weakness * GLUCOSE - POINT OF CARE(Performed 04/28/2024) * GLUCOSE - POINT OF CARE(Performed 04/28/2024) * TROPONIN-I HIGH SENSITIVE REFLEX 1HOUR(Performed 04/28/2024) * GLUCOSE - POINT OF CARE(Performed 04/28/2024) * COMPREHENSIVE METABOLIC PANEL(Performed 04/28/2024) * LIPID PROFILE(Performed 04/28/2024) * TROPONIN-I HIGH SENSITIVE BASELINE + 1HR(Performed 04/28/2024) * BLOOD TYPE VERIFICATION(Performed 04/28/2024) * PT EVAL AND TREAT(Performed 04/28/2024) * OT EVAL AND TREAT(Performed 04/28/2024) * CT ANGIO BRAIN NECK STROKE(Performed 04/28/2024) Performed for Weakness * CT BRAIN STROKE(Performed 04/28/2024) Performed for Weakness * CREATININE - POCT INTERFACED(Performed 04/28/2024) * INR WHOLE BLOOD - POINT OF CARE (IP) STROKE(Performed 04/28/2024) * TYPE + SCREEN PANEL(Performed 04/28/2024) * PHOSPHORUS BLOOD(Performed 04/28/2024) * MAGNESIUM BLOOD(Performed 04/28/2024) * HEMOGLOBIN A1C(Performed 04/28/2024) * PT-INR [facility](Performed 04/28/2024) * COMPREHENSIVE METABOLIC PANEL(Performed 04/28/2024) * CBC W AUTO DIFFERENTIAL(Performed 04/28/2024) Results * (ABNORMAL) GLUCOSE - POINT OF CARE (06/02/2024 4:32 PM [employer]) Only the most recent of274 resultswithin the time period is included. [facility] Glucose WB/POC 249(H) 70 - 99 mg/dL 06/02/2024 4:59 PM [employer] [facility] Specimen Type Cap Fingerstick 2023 4:59 PM [employer] [facility] Blood BLOOD SPECIMEN / Unknown 06/02/2024 4:32 PM [employer] 06/02/2024 4:59 PM [employer] Elida Capellan MD LAB - POINT OF CARE ORDERABLES [address] [address], [facility] [phone] * (ABNORMAL) CBC W/O DIFFERENTIAL (05/29/2024 8:44 PM [employer]) Only the most recent of35 resultswithin the time period is included. [facility] WBC 8.6 4.0 - 10.7 x10E9/L 05/29/2024 9:21 PM [employer] [facility] RBC Count 4.24(L) 4.30 - 5.80 x10E12/L 05/29/2024 9:21 PM [employer] [facility] Hemoglobin 13.1(L) 13.3 - 17.5 g/dL 05/29/2024 9:21 PM [facility] Hematocrit 40.0 38.7 - 51.1 % 05/29/2024 9:21 PM [facility] MCV 94.3 80.0 - 98.0 fL 05/29/2024 9:21 PM [facility] MCH 30.9 26.7 - 33.6 pg 05/29/2024 9:21 PM [facility] MCHC 32.8 31.7 - 36.3 g/dL 05/29/2024 9:21 PM [facility] RDW-CV 14.7 11.3 - 14.8 % 05/29/2024 9:21 PM [facility] Platelet Count 177 150 - 420 x10E9/L 05/29/2024 9:21 PM [facility] MPV 12.8(H) 7.8 - 11.4 fL 05/29/2024 9:21 PM [facility] Blood BLOOD SPECIMEN / Unknown Lab Venipuncture / Unknown 05/29/2024 8:44 PM [employer] 05/29/2024 9:15 PM [employer] Oral Nguyen MD LAB - HEMATOLOGY ORDERABLES Performing Organization Address City/State/[facility] Co de Phone Number [facility] [address] [place] [phone], [facility] [phone] * (ABNORMAL) COMPREHENSIVE METABOLIC PANEL (05/29/2024 8:44 PM [employer]) Only the most recent of3 resultswithin the time period is included. BUN 26 7 - 26 mg/dL 05/29/2024 9:45 PM [facility] Creatinine 0.94 0.71 - 1.16 mg/dL 05/29/2024 9:45 PM [facility] Sodium 140 136 - 145 mmol/L 05/29/2024 9:45 PM [facility] Potassium 4.0 3.5 - 4.5 mmol/L 05/29/2024 9:45 PM [facility] Chloride 103 98 - 107 mmol/L 05/29/2024 9:45 PM [facility] CO2 27 22 - 29 mmol/L 05/29/2024 9:45 PM [facility] Glucose 194(H) 70 - 99 mg/dL 05/29/2024 9:45 PM [facility] Calcium 9.5 8.4 - 10.2 mg/dL 05/29/2024 9:45 PM [facility] Protein Total 6.7 6.0 - 8.3 g/dL 05/29/2024 9:45 PM [facility] Albumin 3.2(L) 3.4 - 5.0 g/dL 05/29/2024 9:45 PM [facility] Bilirubin Total 0.3 0.2 - 1.2 mg/dL 05/29/2024 9:45 PM [facility] Alkaline Phosphatase 72 40 - 150 U/L 05/29/2024 9:45 PM [facility] ALT 32 5 - 55 U/L 05/29/2024 9:45 PM [facility] AST 17 5 - 34 U/L 05/29/2024 9:45 PM [facility] Anion Gap 10 6 - 16 05/29/2024 9:45 PM [facility] BUN/Creatinine Ratio 28(H) 7 - 23 05/29/2024 9:45 PM [facility] Osmolality Calculated 300(H) 275 - 295 mOsm/kg 05/29/2024 9:45 PM [facility] Albumin/Globulin Ratio 0.9(L) 1.1 - 2.3 05/29/2024 9:45 PM [facility] eGFR by CKD-EPI >90 >=90 mL/min/1.7 3 m2 05/29/2024 9:45 PM [facility] Blood BLOOD SPECIMEN / Unknown Lab Venipuncture / Unknown 05/29/2024 8:44 PM [employer] 05/29/2024 9:15 PM [facility] Oral Nguyen MD LAB - CHEMISTRY O RDERABLES [facility] [address] [place] [address], [facility] [phone] * PHOSPHORUS BLOOD (05/29/2024 8:44 PM [employer]) Only the most recent of37 resultswithin the time period is included. Phosphorus 4.1 2.8 - 5.1 mg/dL 05/29/2024 9:45 PM [employer] [facility] Blood BLOOD SPECIMEN / Unknown Lab Venipuncture / Unknown 05/29/2024 8:44 PM [employer] 05/29/2024 9:15 PM [employer] Oral Nguyen MD LAB - CHEMISTRY O SALONI Performing Organization Address City/[facility]/ZIP Co de Phone Number [facility] [address] [place] [phone], [facility] [phone] * MAGNESIUM BLOOD (05/29/2024 8:44 PM [employer]) Only the most recent of37 resultswithin the time period is included. Magnesium 2.4 1.6 - 2.6 mg/dL 05/29/2024 9:45 PM [employer] [facility] Blood BLOOD SPECIMEN / Unknown Lab Venipuncture / Unknown 05/29/2024 8:44 PM [employer] 05/29/2024 9:15 PM [employer] Oral Nguyen MD LAB - CHEMISTRY O SALONI Performing Organization Address City/[facility]/ZIP Co de Phone Number [facility] [address] [place] [phone], [facility] [phone] * CT Brain Stroke (05/23/2024 12:36 PM [employer]) Only the most recent of3 resultswithin the time period is included. Anatomical Region Laterality Modality Head Computed Tomogra phy 05/23/2024 12:3 3 PM [employer] Impressions 05/23/2024 12:43 PM [employer] IMPRESSION: 1. No acute intracranial hemorrhage. 2. [...] 05/23/2024 12:43 PM Narrative 05/23/2024 12:43 PM [employer] PROCEDURE: CT BRAIN STROKE, DATE/TIME OF EXAM: 05/23/2024 12:36 PM, LOCATION [facility] INDICATION: I63.9: Cerebrovascular accident (CVA), unspecified mechanism [...] DATE/TIME OF EXAM: 05/23/2024 12:36 PM, LOCATION [facility] INDICATION: I63.9: Cerebrovascular accident (CVA), unspecified mechanism [...] METABOLIC PANEL (CALCIUM TOTAL) (05/22/2024 5:03 AM [facility]) Only the most recent of34 resultswithin the time period is included. BUN 23 7 - 26 mg/dL 05/22/2024 7:15 AM [facility] Creatinine 1.02 0.71 - 1.16 mg/dL 05/22/2024 7:15 AM [facility] Sodium 143 136 - 145 mmol/L 05/22/2024 7:15 AM [facility] Potassium 4.3 3.5 - 4.5 mmol/L 05/22/2024 7:15 AM [facility] Chloride 104 98 - 107 mmol/L 05/22/2024 7:15 AM [facility] CO2 29 22 - 29 mmol/L 05/22/2024 7:15 AM [facility] Glucose 91 70 - 99 mg/dL 05/22/2024 7:15 AM [facility] Calcium 9.9 8.4 - 10.2 mg/dL 05/22/2024 7:15 AM [facility] Anion Gap 10 6 - 16 05/22/2024 7:15 AM [facility] BUN/Creatinine Ratio 23 7 - 23 05/22/2024 7:15 AM [facility] Osmolality Calculated 299(H) 275 - 295 mOsm/kg 05/22/2024 7:15 AM [facility] eGFR by CKD-EPI 84(L) >=90 mL/min/1.7 3 m2 05/22/2024 7:15 AM [facility] Blood BLOOD SPECIMEN / Unknown Lab Venipuncture / Unknown 05/22/2024 5:03 AM [employer] 05/22/2024 6:48 AM [employer] Patel Carroll MD LAB - CHEMISTRY ORD RACHEL [facility] [address] [place] [address], [facility] [phone] * (ABNORMAL) C-PEPTIDE (05/20/2024 10:17 AM [employer]) C-Peptide 4.0(H) 0.5 - 3.3 ng/mL 05/25/2024 9:33 PM [employer] [facility] ([facility]) Comment: INTERPRETIVE INFORMATION: Serum, C-Peptide Reference Interval applies to fasting specimens. To convert to nmol/L, multiply by 0.33 Performed By: [employer] [address] [place] [address] General House Worker: Red Corbin MD, PhD CLIA Number: [id number] Blood BLOOD SPECIMEN / Unknown Lab Venipuncture / Unknown 05/20/2024 10:17 AM [employer] 05/20/2024 10:49 AM [employer] Marium Maria DO LAB - CHEMISTRY [facility]) [address] * (ABNORMAL) VITAMIN D 25-HYDROXY (05/19/2024 5:25 AM [employer]) Vitamin D, 25 Hydroxy 28.4(L) 30.0 - 80.0 ng/mL 05/19/2024 7:38 AM [employer] [facility] Comment: The recommendations for 25-Hydroxy Vitamin [...] Lab Venipuncture / Unknown 05/19/2024 5:25 AM [employer] 05/19/2024 6:32 AM [employer] Marium Maria DO LAB - CHEMISTRY ORDAdolfo CABRAL Performing Organization Address City/[facility]/ZIP Co de Phone Number [address] [address], [facility] [phone] * FOLATE (05/19/2024 5:25 AM [employer]) Folate 14.8 7.0 - 31.4 ng/mL 05/19/2024 7:38 AM [employer] [facility] Blood BLOOD SPECIMEN / Unknown Lab Venipuncture / Unknown 05/19/2024 5:25 AM [employer] 05/19/2024 6:32 AM [employer] Marium Maria DO LAB - CHEMISTRY ORDAdolfo CABRAL Performing Organization Address City/[facility]/ZIP Co de Phone Number [address] [phone], [facility] [phone] * VITAMIN B12 (05/19/2024 5:25 AM [employer]) Vitamin B12 627 213 - 816 pg/mL 05/19/2024 7:38 AM [employer] [facility] Blood BLOOD SPECIMEN / Unknown Lab Venipuncture / Unknown 05/19/2024 5:25 AM [employer] 05/19/2024 6:32 AM [employer] Marium Maria DO LAB - CHEMISTRY ORDE MARIANNA Performing Organization Address City/[facility]/ZIP Co de Phone Number [address] [phone], [facility] [phone] * (ABNORMAL) IRON + TRANSFERRIN PANEL (05/19/2024 5:25 AM [employer]) Pathologist [facility] Iron 48(L) 50 - 175 ug/dL 05/19/2024 7:09 AM [facility] Transferrin 198 174 - 382 mg/dL 05/19/2024 7:09 AM [facility] Transferrin Saturation % 19 16 - 50 % 05/19/2024 7:09 AM [facility] TIBC Calculated 248 240 - 450 ug/dL 05/19/2024 7:09 AM [facility] Blood BLOOD SPECIMEN / Unknown Lab Venipuncture / Unknown 05/19/2024 5:25 AM [employer] 05/19/2024 6:54 AM [employer] Marium Adolfo Maria DO LAB - CHEMISTRY [facility]ZALA CABRAL Performing Organization Address [facility] Co de Phone Number [address] [address], [facility] [phone] * (ABNORMAL) URINALYSIS REFLEX TO MICROSCOPIC NO CULTURE (05/13/2024 11:27 AM [employer]) Only the most recent of2 resultswithin the time period is included. Color UA Yellow Straw, Yellow 05/13/2024 11:58 AM [facility] Clarity UA Clear Clear 05/13/2024 11:58 AM [facility] Specific [place] UA 1.010 1.005 - 1.030 05/13/2024 11:58 AM [facility] pH UA 7.0 5.0 - 8.0 pH 05/13/2024 11:58 AM [facility] Protein UA Negative Negative 05/13/2024 11:58 AM [facility] Glucose UA 3+(A) Negative 05/13/2024 11:58 AM [facility] Ketone UA Negative Negative 05/13/2024 11:58 AM [facility] Bilirubin UA Negative Negative 05/13/2024 11:58 AM [facility] Blood UA Negative Negative 05/13/2024 11:58 AM [facility] Nitrite UA Negative Negative 05/13/2024 11:58 AM [facility] Leukocyte Esterase Negative Negative 05/13/2024 11:58 AM [facility] Urobilinogen UA Negative Negative mg/dL 05/13/2024 11:58 AM [facility] RBC UA 3-5 None Seen, 0-2, 3-5 /HPF 05/13/2024 11:58 AM [facility] WBC UA 0-5 None Seen, 0-5 /HPF 05/13/2024 11:58 AM [facility] Squamous Epithelial Cells UA None Seen None Seen, 0-2, 3-5 /HPF 05/13/2024 11:58 AM [facility] Urine URINE SPECIMEN OBTAINED BY SINGLE CATHETERIZATION OF URINARY BLADDER / Unknown Collection / Unknown 05/13/2024 11:27 AM [employer] 05/13/2024 11:36 AM [employer] Narrative [facility] - 05/13/2024 11:58 AM [employer] Sumanth Chacon APRN-CLAUDIO LAB - URINALYSIS O RDERABLES [address] [address], [facility] [phone] * LACTIC ACID BLOOD (05/13/2024 8:05 AM [employer]) Lactic Acid-Stat 1.0 <=2.0 mmol/L 05/13/2024 8:45 AM [facility] Blood BLOOD SPECIMEN / Unknown Venipuncture / Unknown 05/13/2024 8:05 AM [employer] 05/13/2024 8:13 AM [employer] Sonu Lemus MD LAB - CHEMISTRY [facility] [address] [address], [facility] [phone] * XR Chest 1Vw Portable (05/12/2024 7:52 PM [employer]) Only the most recent of4 resultswithin the time period is included. Anatomical Region Laterality Modality Chest Digital Radiogra phy 05/13/2024 7:39 AM [employer] Impressions 05/13/2024 3:40 PM [employer] IMPRESSION: Mild amount of left medial basilar infiltrate and atelectasis. Report dictated by Summer Davidson MD, (Bus Cleaner). David Crane MD have personally reviewed and interpreted this examination/study. > Interpreting Provider: David Fitch MD on 05/13/2024 3:40 PM Narrative 05/13/2024 3:40 PM [employer] PROCEDURE: XR CHEST 1VW PORTABLE DATE/TIME OF [...] andatelectasis. Report dictated by Summer Davidson MD, (Bus Cleaner). David Crane MD have personally reviewed and interpreted this examination/study. > Interpreting Provider: David Fitch MD on 05/13/2024 3:40 PM Sonu Lemus MD DIAGNOSTIC IMAGING O RDERABLES * FL SWALLOWING FUNCTION STUDY (05/12/2024 2:11 PM [employer]) Only the most recent of3 resultswithin the time period is included. Anatomical Region Laterality Modality Chest Digital Radiogra phy 05/12/2024 2:35 PM [employer] Narrative 05/12/2024 6:40 PM [employer] PROCEDURE: FL SWALLOWING FUNCTION STUDY DATE/TIME OF [...] recommendations. Report dictated by Summer Davidson MD, (vice president of compliance). Betito Crane MD have personally reviewed and [...] recommendations. Report dictated by Summer Davidson MD, (vice president of compliance). I, Betito Damico MD have personally reviewed and interpreted this examination/study. > Interpreting Provider: Betito Damico MD on 05/12/2024 6:40 PM Sonu Lemus MD FLUOROSCOPY ORDERABL ES * TSH REFLEX FREE T4 (05/08/2024 8:15 PM [employer]) Only the most recent of2 resultswithin the time period is included. TSH 3.223 0.350 - 4.940 uIU/mL 05/08/2024 9:12 PM [employer] [facility] Blood BLOOD SPECIMEN / Unknown Venipuncture / Unknown 05/08/2024 8:15 PM [employer] 05/08/2024 8:26 PM [employer] Sonu Lemus MD LAB - CHEMISTRY ORDAdolfo CABRAL Performing Organization Address City/[facility]/ZIP Co de Phone Number [address] [address], [facility] [phone] * (ABNORMAL) ACTH 60 MINUTES (05/08/2024 1:54 AM [employer]) Cortisol 60 Min 15.9(L) >=20.0 mcg/dL 05/08/2024 2:45 AM [employer] [facility] Blood BLOOD SPECIMEN / Unknown Venipuncture / Unknown 05/08/2024 1:54 AM [employer] 05/08/2024 1:57 AM [employer] Son[facility]us MD [facility] [address] [address], [facility] [phone] * (ABNORMAL) ACTH 30 MINUTES (05/08/2024 1:06 AM [employer]) Cortisol 30 Min 16.1(L) >=20.0 mcg/dL 05/08/2024 2:04 AM [employer] [facility] Blood BLOOD SPECIMEN / Unknown Venipuncture / Unknown 05/08/2024 1:06 AM [employer] 05/08/2024 1:16 AM [employer] Sonu Lemus MD LAB - CHEMISTRY [facility] [address] [address], [facility] [phone] * CORTISOL BLOOD AM (05/08/2024 12:21 AM [employer]) Cortisol AM 12.7 3.7 - 19.4 ug/dL 05/08/2024 1:22 AM [employer] [facility] Blood BLOOD SPECIMEN / Unknown Venipuncture / Unknown 05/08/2024 12:21 AM [employer] 05/08/2024 12:30 AM [employer] [facility] [place] - 05/08/2024 1:22 AM [employer] Normal cortisol levels are generally highest in the morning hours and lowest from late evening through the gun perforator hours (8 PM to 4 AM). The PM measurements of cortisol run approximately one-half to one-third of the AM values. Sonu Lemus MD LAB - CHEMISTRY [facility] [address] [address], [facility] [phone] * PROCALCITONIN LEVEL (05/06/2024 3:58 PM [employer]) PROCALCITONIN 0.07 <=0.10 ng/mL 05/06/2024 5:12 PM [employer] [facility] Blood BLOOD SPECIMEN / Unknown Venipuncture / Unknown 05/06/2024 3:58 PM [employer] 05/06/2024 4:39 PM [employer] [facility] [place] - 05/06/2024 5:12 PM [employer] The change in procalcitonin (PCT) concentration over time provides support in decision making on antibiotic discontinuation for suspected or confirmed septic patients. Follow-up samples should be tested once every 1-2 days based upon physician discretion taking into account the patient s evolution and progress. Consider discontinuation of antibiotic therapy if the PCT current is <= 0.5 ng/mL or if the delta PCT is > 80%. Duration of antibiotics should not be determined solely on PCT; established guidelines for the indication should be followed. PCT peak: Highest observed PCT concentration PCT current: Most recent PCT concentration Calculate delta PCT using the following equation: Delta PCT = PCT Peak PCT current X 100% PCT Peak The Change in Procalcitonin Calculator is available at [email or web address] If clinical picture has not improved and PCT remains high, reevaluate and consider treatment failure or other causes. Terry Edwards MD LAB - CHEMISTRY GHAZALA CABRAL Performing Organization Address [facility]/ZIP Co de Phone Number [address] [phone], [facility] [phone] * MRSA DNA PCR (05/05/2024 5:59 PM [employer]) MRSA DNA by PCR Not detected Not detected 05/06/2024 1:37 AM [employer] [facility] Microbiology SPECIMEN FROM NASAL FOSSAE / Unknown Collection / Unknown 05/05/2024 5:59 PM [employer] 05/05/2024 6:22 PM [employer] Narrative [facility] - 05/06/2024 1:37 AM [employer] Methicillin-resistant Staphylococcus aureus (MRSA) DNA is not detected (presumed not colonized with MRSA). Terry Edwards MD LAB - MICROBIOLOGY O RDERABLES Performing Organization Address City/[facility]/ZIP Co de Phone Number [facility] [address] [place] [address], [facility] [phone] * (ABNORMAL) CULTURE SPUTUM+GRAM STAIN (05/05/2024 5:59 PM [employer]) Culture Heavy Staphylococcus aureus(A) ROBERT 05/09/2024 5:38 AM [employer] [facility] Comment:Staphylococcus aureu s methicillin-susceptible (MSSA) detected by penicillin binding protein immunoassay. Culture Heavy Klebsiella pneumoniae(A) ROBERT 05/09/2024 5:38 AM [facility] Culture Heavy normal oropharyngeal jin ROBERT 05/09/2024 5:38 AM [facility] Gram Stain Heavy Polymorphonuclear cells 05/09/2024 5:38 AM [facility] Gram Stain Heavy Gram-positive bacilli 05/09/2024 5:38 AM [facility] Gram Stain Heavy Gram-positive cocci 05/09/2024 5:38 AM [facility] MICROBIOLOGY Gram Stain Light Gram-negative bacilli 05/09/2024 5:38 AM [facility] MICROBIOLOGY Microbiology SPUTUM / Unknown Collection / Unknown 05/05/2024 5:59 PM INSPECTOR OUTSIDE STEAM DISTRIBUTION 05/05/2024 6:22 PM [facility] Organism Antibiotic Method Susceptibility Staphylococcus aureus Cefazolin ROBERT Susceptible Staphylococcus aureus Clindamycin ROBERT >=4 ug/mL: Resistant Staphylococcus aureus Doxycycline ROBERT <=0.5 ug/mL: Susceptible Staphylococcus aureus Inducible Clindamy mikel Resistance ROBERT POS ug/mL: Pos Staphylococcus aureus Oxacillin ROBERT 0.5 ug/mL: Susceptible Staphylococcus aureus Trimethoprim-sulfa methoxa zole ROBERT <=10 ug/mL: Susceptible Comment: This isolate is presumed to be resistant to clindamycin on the basis of detection of inducible clindamycin resistance. Staphylococcus sensitivity to oxacillin predicts susceptibility for nafcillin, ampicillin/sulbactam, amoxicillin/clavulanate, piperacillin/tazobactam, all cephalosporins (except ceftazidime, ceftazidime/avibactam, ceftolozane/tazobactam), and all carbapenems. Klebsiella pneumoniae Amikacin ROBERT <=2 ug/mL: Susceptible Klebsiella pneumoniae Ampicillin-sulbactam ROBERT <=2 ug/mL: Susceptible Klebsiella pneumoniae Cefazolin ROBERT <=4 ug/mL: See Comment* Klebsiella pneumoniae Cefepime ROBERT <=1 ug/mL: Susceptible Klebsiella pneumoniae Ceftriaxone ROBERT <=1 ug/mL: Susceptible Klebsiella pneumoniae Ciprofloxacin ROBERT <=0.25 ug/mL: Susceptible Klebsiella pneumoniae Gentamicin ROBERT <=1 ug/mL: Susceptible Klebsiella pneumoniae Meropenem ROBERT <=0.25 ug/mL: Susceptible Klebsiella pneumoniae Piperacillin-tazobactam ROBERT <=4 ug/mL: Susceptible Klebsiella pneumoniae Tobramycin ROBERT <=1 ug/mL: Susceptible Klebsiella pneumoniae Trimethoprim-sulfa methoxa zole ROBERT <=20 ug/mL: Susceptible Comment:*Cefazolin ROBERT of </ =4 cannot distinguish between susceptible or intermediate for systemic breakpoints. If further defined interpretation is needed, call Microbiology and a disk diffusion test will be performed. Terry Edwards MD LAB - MICROBIOLOGY O RDERABLES [facility] MICROBIOLOGY [address] [place] [address], [facility] [phone] * IR Picc Line Insert (05/04/2024 3:35 PM INSPECTOR OUTSIDE STEAM DISTRIBUTION) Anatomical Region Laterality Modality Chest, Upper Extremity Other Narrative 05/04/2024 3:30 PM INSPECTOR OUTSIDE STEAM DISTRIBUTION Richy Perez RN 05/04/2024 3:44 PM Department of Interventional Radiology Procedure Note: PICC line placement Complications: Initial attempt to advance PICC in left basilic vein was unsuccessful due to possible stenosis at the left subclavian area. The left arm attempt was then aborted and the RUE was prepped and draped in sterile fashion. History: 58 year old male recently transferred from stroke service to [facility] after completion of stroke workup. 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 Patient was transferred on DAPT and Atorvastatin 80 mg with goal of liberalizing Blood Pressure goals to the 160s. Indication: Vasopressors Makeup Instructor: Richy Perez RN ID- Procedures: 1. Limited extremity ultrasound to assess vascular patency 2. Ultrasound guided access of the Right basilic vein. 3. Placement of peripherally inserted central line with magnetic tracking and ECG tip positioning system ([employer]). Anesthesia: Local anesthesia with 4mL of 1% Lidocaine without epinephrine Procedure in detail: Type of line placed: Dual Lumen Power PICC The risks and benefits of PICC placement were explained to Family. The risks include discussed include pain, inadvertent arterial puncture, infection, blood clots, phlebitis, and cardiac arrhythmias. They were able to consent to the PICC insertion. Timeout and hand hygiene completed prior to procedure. Traffic was limited in the room during the procedure. Skin prepped with appropriate antibacterial solution prior to skin puncture. Maximum sterile barrier precautions were used including sterile gown and gloves, hat, mask, eye protection and a large sterile drape. Limited ultrasound of the the basilic vein demonstrated patent and compressible vein. A gordon scale image was documented. The patient was given local anesthesia with 3 milliliters of 1% Lidocaine without epinephrine. The basilic vein was accessed using a micropuncture needle. The needle entry was documented. A 0.018-inch guidewire was then advanced centrally. A small dermatotomy was made at the puncture site, and then the peel-away sheath was advanced into the vein. The length of the catheter was assessed with magnetic tracking and ECG tip positioning system. The PICC line pre-loaded with magnetic tip was then introduced through the peel-away sheath and advanced to the right atrium near the cavoatrial junction. The double lumen PICC was placed using the Seldinger technique with a Right Basilic approach without complication. There was dark, non-pulsatile blood return in all ports and they were easily flushed with saline. The tip of the catheter was guided by the magnetic tracking and ECG tip positioning system (Watsin), The peel-away sheath was removed, and the PICC was secured to the skin with a engineered securement device. An overlying dressing was placed. PICC tip position was verified by portable chest x-ray due to poor 3CG feedback. This showed PICC tip in good position in the right atrium. Reposition of the PICC was not indicated. The patient tolerated the procedure well. Patient Guide Booklet and Fact Sheet for preventing infection placed in chart for discharge packet. Reviewed with: RN Complications: Initial attempt to advance PICC in left basilic vein was unsuccessful due to possible stenosis at the left subclavian area. The left arm attempt was then aborted and the RUE was prepped and draped in sterile fashion. All the ports were aspirated and flushed to assure patency. The patient tolerated this procedure without apparent immediate complication. Impression: Successful placement of 44 cm PICC Fr: 4 F double lumen power PICC via the Right basilic vein with tip at the right atrium. The procedure was performed by Richy Perez RN [facility]. The final image was reviewed by Dr. Marvin Allen and, Interventional Radiology Attending- Mikal Watts MD The catheter can be used now. Terry Edwards MD IR ORDERABLES * ECHO LIMITED W BUBBLES W COLOR FLOW AND DOPPLER (05/04/2024 10:42 AM INSPECTOR OUTSIDE STEAM DISTRIBUTION) IVSd 2D 1.331 cm SSM CV FUJ I PACS LVIDd 4.638 cm SSM CV FUJ I PACS LVIDs 2.509 cm SSM CV FUJ I PACS LVOT diam 2.331 cm SSM CV FUJ I PACS LVPWd 1.33 cm SSM CV FUJ I PACS LA size 2.822 cm SSM CV FUJ I PACS Ascending aorta 3.252 cm SSM CV FUJI PACS Myocardial strain charge 2 unitless SSM CV FUJI PACS Anatomical Region Laterality Modality Ultrasound 05/04/2024 10:0 8 AM INSPECTOR [employer]SIDE STEAM DISTRIBUTION Narrative 05/04/2024 12:28 PM INSPECTOR [employer]SIDE STEAM DISTRIBUTION Summary * The left ventricle is not well visualized, but appears grossly normal in size with hyperdynamic systolic function and an estimated ejection fraction of > 70% by visual estimate. Left ventricular wall motion is unable to be assessed secondary to poor endocardial definition. * Right ventricle is not well visualized, but appears grossly normal in size with normal systolic function. Patient Info Name: Clifton Lambert Age: 58 years : 1965 Gender: Male Ht: 60 in Wt: 155 lb BSA: 1.75 m2 HR: 101 bpm BP: 180 / 115 mmHg Heart Rhythm: Tachycardia Exam Date: 05/04/2024 10:08 AM Exam Room: [facility] Patient Status: I/P Study Site: [facility] Primary Location: [facility] EStudy Info Technical Quality: Technically Difficult Exam Type: ECHO LIMITED W BUBBLES W COLOR FLOW AND DOPPLER Indications I63.9 - Cerebrovascular accident (CVA), unspecified mechanism (HCC) Procedure(s) * A limited 2D transthoracic echocardiogram was performed. Contrast/Agitated Saline Contrast / Saline: Agitated Saline Amount: 10.00 ml Administered By: Jorden May Reaction to Contrast: no Reason for Technically Difficult Study: poor echocardiographic windows, patient on ventilation, patient supine, poor acoustic windows, poor patient cooperation Staff Referring Physician: Terry Edwards Ordering Provider: Terry Edwards Attending Physician: Terry Edwards Hydraulic Punch Press Operator: Jorden May Left Ventricle The left ventricle is not well visualized, but appears grossly normal in size. Left ventricular systolic function is hyperdynamic with an estimated ejection fraction of > 70% by visual estimate. The left ventricular mass is mildly increased with concentric hypertrophy. Left ventricular segmental wall motion is unable to be assessed secondary to poor endocardial definition. Right Ventricle The right ventricle is not well visualized, but appears grossly normal in size. Right ventricular systolic function is normal. Atrial Septum Interatrial septum not well visualized by 2D and color Doppler imaging. Bubble study was not of diagnostic quality. Pericardium/Pleural There is no pericardial effusion. Moderately thickened epicardial fat pad. Aorta The ascending aorta is normal in size. Measurements Left Ventricular Outflow Tract Name Value Normal LVOT 2D LVOT Diameter 2.3 cm LVOT Area 4.3 cm2 Tricuspid Valve Name Value Normal Estimated PAP/RSVP RA Pressure 8 mmHg <=5 Aorta Name Value Normal Ascending Aorta Ao Root Diameter (MM) 3.5 cm Ao Root Diam Index (MM) 2.0 cm/m2 Asc Ao Diameter 3.3 cm 2.2-3.8 Asc Ao Diameter Index 1.9 cm/m2 1.1-1.9 Aortic Valve Name Value Normal AV Regurgitation 2D LVOT Area 4.26 cm2 Ventricles Name Value Normal LV Dimensions 2D/MM IVS Diastolic Thickness (2D) 1.3 cm 0.6-1.0 LVID Diastole (2D) 4.6 cm 4.2-5.8 LVPW Diastolic Thickness (2D) 1.3 cm 0.6-1.0 LVID Systole (2D) 2.5 cm 2.5-4.0 LV Mass (2D Cubed) 241 g 88-224 LV Mass Index (2D Cubed) 138 g/m2 49-115 Relative Wall Thickness (2D) 0.57 <=0.42 LV Fractional Shortening/Ejection Fraction 2D/MM LV Fractional Shortening (2D) 46 % 25-43 LV EF (2D Teicholz) 77 % 52-72 Atria Name Value Normal LA Dimensions LA Dimension (2D) 2.8 cm 3.0-4.1 LA Dimen Index (2D) 1.6 cm/m2 LA Dimension (MM) 3.2 cm 3.0-4.1 Report Signatures Finalized by Ramírez Tyler on 05/04/2024 12:28 PM Procedure Note Ramírez Tyler MD - 05/04/2024 Summary * The left ventricle is not well visualized, but appears grossly normalin size with hyperdynamic systolic function and an estimated ejectionfraction of > 70% by visual estimate. Left ventricular wall motion is unable to be assessed secondary to poor endocardial definition. * Right ventricle is not well visualized, but appears grossly normal insize with normal systolic function. Patient Info Name: Clifton Lambert Age: 58 years : 1965 Gender: Male Ht: 60 in Wt: 155 lb BSA: 1.75 m2 HR: 101 bpm BP: 180 / 115 mmHg Heart Rhythm: Tachycardia Exam Date: 05/04/2024 10:08 AM Exam Room: 314 Patient Status: I/P Study Site: [facility] Primary Location: [facility] EStud Info Technical Quality: Technically Difficult Exam Type: ECHO LIMITED W BUBBLES W COLOR FLOW AND DOPPLER Indications I63.9 - Cerebrovascular accident (CVA), unspecified mechanism (HCC) Procedure(s) * A limited 2D transthoracic echocardiogram was performed. Contrast/Agitated Saline Contrast / Saline: Agitated Saline Amount: 10.00 ml Administered By: Jorden May Reaction to Contrast: no Reason for Technically Difficult Study: poor echocardiographicwindows, patient on ventilation, patient supine, poor acoustic windows, poorpatient cooperation Staff Referring Physician: Terry Edwards Ordering Provider: Terry Edawrds Attending Physician: Terry Edwards Hydraulic Punch Press Operator: Jorden May Left Ventricle The left ventricle is not well visualized, but appears grossly normalin size. Left ventricular systolic function is hyperdynamic with anestimated ejection fraction of > 70% by visual estimate. The left ventricular massis mildly increased with concentric hypertrophy. Left ventricular segmentalwall motion is unable to be assessed secondary to poor endocardialdefinition. Right Ventricle The right ventricle is not well visualized, but appears grossly normalin size. Right ventricular systolic function is normal. Atrial Septum Interatrial septum not well visualized by 2D and color Dopplerimaging. Bubble study was not of diagnostic quality. Pericardium/Pleural There is no pericardial effusion. Moderately thickened epicardial fatpad. Aorta The ascending aorta is normal in size. Measurements Left Ventricular Outflow Tract Name Value Normal LVOT 2D LVOT Diameter 2.3 cm LVOT Area 4.3 cm2 Tricuspid Valve Name Value Normal Estimated PAP/RSVP RA Pressure 8 mmHg <=5 Aorta Name Value Normal Ascending Aorta Ao Root Diameter (MM) 3.5 cm Ao Root Diam Index (MM) 2.0 cm/m2 Asc Ao Diameter 3.3 cm 2.2-3.8 Asc Ao Diameter Index 1.9 cm/m2 1.1-1.9 Aortic Valve Name Value Normal AV Regurgitation 2D LVOT Area 4.26 cm2 Ventricles Name Value Normal LV Dimensions 2D/MM IVS Diastolic Thickness (2D) 1.3 cm 0.6-1.0 LVID Diastole (2D) 4.6 cm 4.2-5.8 LVPW Diastolic Thickness (2D) 1.3 cm 0.6-1.0 LVID Systole (2D) 2.5 cm 2.5-4.0 LV Mass (2D Cubed) 241 g 88-224 LV Mass Index (2D Cubed) 138 g/m2 49-115 Relative Wall Thickness (2D) 0.57 <=0.42 LV Fractional Shortening/Ejection Fraction 2D/MM LV Fractional Shortening (2D) 46 % 25-43 LV EF (2D Teicholz) 77 % 52-72 Atria Name Value Normal LA Dimensions LA Dimension (2D) 2.8 cm 3.0-4.1 LA Dimen Index (2D) 1.6 cm/m2 LA Dimension (MM) 3.2 cm 3.0-4.1 Report Signatures Finalized by Ramírez Tyler on 05/04/2024 12:28 PM Terry Edwards MD ECHO CUPID * MRI BRAIN WO CONTRAST (05/04/2024 12:19 AM INSPECTOR OUTSIDE STEAM DISTRIBUTION) Only the most recent of2 resultswithin the time period is included. Anatomical Region Laterality Modality Head Magnetic Resonan ce 05/04/2024 3:07 AM INSPECTOR OUTSIDE STEAM DISTRIBUTION Impressions 05/04/2024 10:35 AM INSPECTOR OUTSIDE STEAM DISTRIBUTION IMPRESSION: Compared to the prior MRI of the brain from 04/29/2024: 2.There has been interval development of new infarcts, predominantly in the left cerebral hemisphere, as detailed above. Please see report text for additional details. No evidence of associated hemorrhagic transformation. 3.Otherwise, redemonstration of evolving, acute bilateral, left greater than right watershed infarcts as outlined above. No evidence of hemorrhagic transformation. 4.No midline shift. Results of this exam were communicated with closed loop confirmation to Li by Dr. Jeter via telephone on 05/04/2024 at 10:30 AM with readback comprehension and verification. > Interpreting Provider: Deejay Jeter MD on 05/04/2024 10:35 AM Narrative 05/04/2024 10:35 AM INSPECTOR OUTSIDE STEAM DISTRIBUTION PROCEDURE: MRI BRAIN WO CONTRAST, DATE/TIME OF EXAM: 05/04/2024 12:19 AM, LOCATION [facility] INDICATION: I63.9: Cerebrovascular accident (CVA), unspecified mechanism (HCC) ADDITIONAL CLINICAL INFORMATION: Ordering Provider Reason For Exam: Stroke Technologist Note: None. Additional: None. EXAMINATION: Magnetic resonance imaging (MRI) of the brain without contrast TECHNIQUE: MRI of the brain was performed without contrast according to standard protocol. COMPARISON: MRI of the brain from . FINDINGS: The images are degraded due to the presence of artifacts, particularly obscuring the posterior fossa. Within this limitation: No evidence of acute or chronic hemorrhage is identified. Compared to the prior MRI of the brain from 07/09/2023: There has been interval development of new areas of acute infarcts for reference: *Prominent patchy areas of restricted diffusion in the left rodriguez radiata, along the left periventricular white matter adjacent to the left lateral ventricle, (series 3, and series 4, image 15). *New areas of restricted diffusion are also identified in the inferior left basal ganglia and the left insula, (series 3 and series 4, images 10-11). *Additional new small infarcts in the left basal ganglia and the left posterior insular region, (series 3 and series 4, image 12 for example). *Additional smaller new infarcts in the bilateral cerebral hemispheres are not excluded. Otherwise, redemonstration of prominent patchy areas of restricted diffusion are identified in the left frontotemporoparietal regions, compatible with evolving acute watershed infarcts. There are additional tiny foci of restricted diffusion in the left periventricular white matter and the basal ganglia, compatible with additional tiny acute infarcts. Similar but to a lesser extent right-sided findings, with scattered smaller foci of restricted diffusion involving the right frontoparietal region and the right basal ganglia, compatible with additional evolving acute right sided watershed infarcts. No evidence of hemorrhagic transformation. Mild local mass effect due to the presence of cytotoxic edema and associated FLAIR hyperintensity in the infarcted areas mentioned above in the bilateral cerebral hemispheres, as outlined. There is mild cerebral volume loss with associated ex vacuo ventricular dilatation. No mass effect or midline shift is otherwise seen. Periventricular and subcortical white matter FLAIR hyperintensities likely represent sequelae of chronic small vessel ischemic disease. The corpus callosum and sella appear grossly stable. The posterior fossa, brainstem, and craniocervical junction appear grossly unremarkable. Other than right cataract extraction, the visualized portions of the orbits appear grossly unremarkable. There is mild paranasal sinus disease. Mild opacification in the left mastoid air cells. The imaged mastoid air cells appear grossly clear. Grade 1 anterolisthesis of C3 on C4 and additional degenerative changes, with mild or [id number] spinal canal stenosis at C3-C4. If there is clinical concern, MRI of the cervical spine could be obtained for further evaluation. Please refer to the prior CT angiogram of the head the neck for the angiographic findings. The calvarium and visualized cervical spine appear otherwise grossly unremarkable. Procedure Note Deejay Jeter MD - 05/04/2024 PROCEDURE: MRI BRAIN WO CONTRAST, DATE/TIME OF EXAM: 05/04/2024 12:19AM, LOCATION [facility] INDICATION: I63.9: Cerebrovascular accident (CVA), unspecified mechanism (HCC) ADDITIONAL CLINICAL INFORMATION: Ordering Provider Reason For Exam: Stroke Technologist Note: None. Additional: None. EXAMINATION: Magnetic resonance imaging (MRI) of the brain withoutcontrast TECHNIQUE: MRI of the brain was performed without contrast according to standard protocol. COMPARISON: MRI of the brain from . FINDINGS: The images are degraded due to the presence of artifacts, particularly obscuring the posterior fossa. Within this limitation: No evidence of acute or chronic hemorrhage is identified. Compared to the prior MRI of the brain from 07/09/2023: There has been interval development of new areas of acute infarcts for reference: *Prominent patchy areas of restricted diffusion in the left coronaradiata, along the left periventricular white matter adjacent to the left lateral ventricle, (series 3, and series 4, image 15). *New areas of restricted diffusion are also identified in the inferiorleft basal ganglia and the left insula, (series 3 and series 4, [id number]). *Additional new small infarcts in the left basal ganglia and the left posterior insular region, (series 3 and series 4, image 12 for example). *Additional smaller new infarcts in the bilateral cerebral hemispheresare not excluded. Otherwise, redemonstration of prominent patchy areas of restricted diffusion are identified in the left frontotemporoparietal regions, compatible with evolving acute watershed infarcts. There are additional tiny foci of restricted diffusion in the left periventricular whitematter and the basal ganglia, compatible with additional tiny acute infarcts. Similar but to a lesser extent right-sided findings, with scatteredsmaller foci of restricted diffusion involving the right frontoparietal regionand the right basal ganglia, compatible with additional evolving acute right sided watershed infarcts. No evidence of hemorrhagic transformation.Mild local mass effect due to the presence of cytotoxic edema and associated FLAIR hyperintensity in the infarcted areas mentioned above in the bilateral cerebral hemispheres, as outlined. There is mild cerebralvolume loss with associated ex vacuo ventricular dilatation. No mass effect or midline shift is otherwise seen. Periventricular and subcortical white matter FLAIR hyperintensities likely represent sequelae of chronic small vessel ischemic disease. The corpus callosum and sella appear grossly stable. The posterior fossa, brainstem, and craniocervical junctionappear grossly unremarkable. Other than right cataract extraction, the visualized portions of theorbits appear grossly unremarkable. There is mild paranasal sinus disease. Mild opacification in the left mastoid air cells. The imaged mastoid aircells appear grossly clear. Grade 1 anterolisthesis of C3 on C4 and additional degenerative changes, with mild or [id number] spinal canalstenosis at C3-C4. If there is clinical concern, MRI of the cervical spine couldbe obtained for further evaluation. Please refer to the prior CT angiogramof the head the neck for the angiographic findings. The calvarium and visualized cervical spine appear otherwise grossly unremarkable. IMPRESSION: Compared to the prior MRI of the brain from 04/29/2024: 2.There has been interval development of new infarcts, predominantly inthe left cerebral hemisphere, as detailed above. Please see report text for additional details. No evidence of associated hemorrhagictransformation. 3.Otherwise, redemonstration of evolving, acute bilateral, left greater than right watershed infarcts as outlined above. No evidence ofhemorrhagic transformation. 4.No midline shift. Results of this exam were communicated with closed loop confirmation toLi by Dr. Jeter via telephone on 05/04/2024 at 10:30 AM with readback comprehension and verification. > Interpreting Provider: Deejay Jeter MD on 05/04/2024 10:35AM Martín Daly DO MR ORDERABLES * PTT [facility] (05/02/2024 11:54 PM INSPECTOR OUTSIDE STEAM DISTRIBUTION) APTT 23.1 23.0 - 38.4 Seconds 05/03/2024 12:26 AM INSPECTOR OUTSIDE STEAM DISTRIBUTION [facility] Comment:Suggested therapeuti c range for full dose I.V. unfractionated heparin therapy for venous thromboembolism is 71 to 109 seconds. Blood BLOOD SPECIMEN / Unknown Venipuncture / Unknown 05/02/2024 11:54 PM INSPECTOR OUTSIDE STEAM DISTRIBUTION 05/03/2024 12:00 AM INSPECTOR OUTSIDE STEAM DISTRIBUTION Terry Edwards MD LAB - COAGULATION OR DERABLES [facility] [address] [place] [id number], [facility] [phone] * TROPONIN-I HIGH SENSITIVE (05/02/2024 10:46 AM INSPECTOR OUTSIDE STEAM DISTRIBUTION) Pathologist [facility] Troponin I High Sensitive 6 <=35 ng/L 05/02/2024 11:36 AM INSPECTOR OUTSIDE STEAM DISTRIBUTION [facility] Blood BLOOD SPECIMEN / Unknown Venipuncture / Unknown 05/02/2024 10:46 AM INSPECTOR OUTSIDE STEAM DISTRIBUTION 05/02/2024 10:56 AM INSPECTOR OUTSIDE STEAM DISTRIBUTION Patel Carroll MD LAB - CHEMISTRY ORD ERABLES [facility] [address] [place] [address], [facility] [phone] * EKG 12-LEAD (05/02/2024 9:26 AM INSPECTOR OUTSIDE STEAM DISTRIBUTION) [facility] Ventricular Rate 81 BPM SL MUSE Atrial Rate 81 BPM SL MUSE P-R Interval 204 ms SL MUSE QRS Duration ms 100 ms SL MUSE Q-T Interval ms 404 ms [facility] MUSE QTC Calculation (Bezet) 469 ms [facility] MUSE Calculated P [place] 77 degrees SL MUSE Calculated R [place] 59 degrees [facility] MUSE Calculated T [place] 31 degrees [facility] MUSE Interpretation EKG NORMAL SINUS RHYTHM NORMAL ECG NO PREVIOUS ECGS AVAILABLE Confirmed by NATALIE MATHIAS, HAYDEN KABA ([id number]) on 05/06/2024 10:33:47 AM [facility] 05/02/2024 9:26 AM [employer]ION 05/06/2024 10:33 AM [facility] Patel Carroll MD ECG ORDERABLES Performing Organization Address [facility]/ZIP Co de Phone Number [facility] MUSE * TROPONIN-I HIGH SENSITIVE BASELINE + 1HR (05/02/2024 9:09 AM INS[employer]RIBUTION) Only the most recent of2 resultswithin the time period is included. Pathologist [facility] Troponin I High Sensitive 5 <=35 ng/L 05/02/2024 9:50 AM INS[employer]SIDE STE[employer] DISTRIBUTION [facility] Blood BLOOD SPECIMEN / Unknown Venipuncture / Unknown 05/02/2024 9:09 AM [employer] 05/02/2024 9:18 AM [employer] Martín Daly DO LAB - CHEMISTRY GHAZALA CABRAL Performing Organization Address City/[facility]/ZIP Co de Phone Number [address] [address], [facility] [phone] * (ABNORMAL) HEMOGLOBIN A1C (05/02/2024 9:09 AM INS[employer]BUTION) Only the most recent of2 resultswithin the time period is included. Hemoglobin A1c 8.5(H) <=5.6 % 05/02/2024 2:42 PM [facility] Estimated Average Glucose 197 mg/dL 05/02/2024 2:42 PM [facility] Comment: HbA1c Interpretation: Normal : < 5.7% Pre-diabetes: 5.7-6.4% Diabetes: Equal to or greater than 6.5% Test results diagnostic of diabetes should be repeated for confirmation. Treatment target values recommended by ADA and other clinical organizations should be used to evaluate metabolic control in patients. Reference: [place] [employer], Standards of Care in Diabetes -2020 In patients 70 years and older consider HbA1c target range of 7.0-7.5% (Reference: Rico Mercedes et al. JAMDA. 2012) The Sebia assay for the measurement of HbA1c is a National Glycohemoglobin Standardization Program (NGSP) certified method. Blood BLOOD SPECIMEN / Unknown Venipuncture / Unknown 05/02/2024 9:09 AM [employer] 05/02/2024 9:20 AM [employer]ION Martín Daly DO LAB - CHEMISTRY GHAZALA CABRAL Performing Organization Address City/[facility]/ZIP Co de Phone Number [address] [address], [facility] [phone] * CT Angio Brain Neck Stroke (05/02/2024 8:52 AM INSPECTOR [employer] DISTRIBUTION) Only the most recent of2 resultswithin the time period is included. Anatomical Region Laterality Modality Head Computed Tomogra phy 05/02/2024 8:49 AM [employer]ION Impressions 05/02/2024 10:24 AM INS[employer]IDE [employer] DISTRIBUTION IMPRESSION: 1.Diffusely slightly smaller caliber of the left internal carotid artery when compared to the prior study. 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 3.The anterior, middle and posterior cerebral arteries are patent and unchanged in appearance. Viz.AI was used for large vessel occlusion detection. Report dictated by Yuri Cano MD (vice president of compliance). I, Yen Resendiz MD have personally reviewed and interpreted this examination/study. > Interpreting Provider: Yen Resendiz MD on 05/02/2024 10:24 AM Narrative 05/02/2024 10:24 AM [employer]BUTION PROCEDURE: CT ANGIO BRAIN NECK STROKE, DATE/TIME OF EXAM: 05/02/2024 8:22 AM, LOCATION [facility] INDICATION: R53.1: Weakness I63.9: Cerebrovascular accident (CVA), unspecified mechanism (HCC) ADDITIONAL CLINICAL INFORMATION: Ordering Provider Reason For Exam: Code stroke Technologist Note: None Additional: Generalized weakness, more so on the right side. EXAMINATION: 1. Computed tomographic (CT) angiography of the head with contrast 2. CT angiography of the neck with contrast CONTRAST: 75 mL Isovue-370 TECHNIQUE: CT angiography of the head and neck was obtained after the uneventful administration of 75 mL Isovue-370 intravenous contrast. Three dimensional postprocessing was performed by the technologist and sent to the workstation for review. Stenosis measurements are based on NASCET criteria. CT dose reduction technique was used, including Automated Exposure Control. COMPARISON: CT brain stroke from same day, CT angio brain the neck 04/28/2024 FINDINGS: Non-angiographic findings: The separately dictated CT brain stroke from the same day contain nonangiographic findings within the head. There is dextroscoliosis of the cervical spine. There is chronic. I/II anterolisthesis of C3 on C4 with chronic jumped facet joint on the right and severe facet joint osteoarthritis at C3-C4 and C4-C5 bilaterally and moderately at C2-C3 on the left. Angiographic findings: There is atherosclerotic disease of the aortic arch. The configuration of the brachiocephalic vessels is typical. The innominate artery and both subclavian arteries appear normal. Redemonstrated complete occlusion of the right common carotid artery, right internal carotid artery with reconstitution of the supraclinoid segment likely via retrograde flow. Redemonstrated complete occlusion of the left common carotid artery with reconstitution of the left ICA just above the carotid bifurcation via retrograde flow. However, the left internal carotid artery is smaller in caliber than seen on the prior study. 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 Dominant left vertebral artery is redemonstrated, there is atherosclerosis without significant stenosis. There is atherosclerotic disease involving the distal internal carotid arteries without significant focal stenosis. Unchanged atherosclerotic disease of the distal left internal carotid artery with up to moderate stenosis. The anterior and middle cerebral arteries appear patent. The right V4 segment of the vertebral artery is small in caliber after reconstitution. The left distal vertebral artery is grossly normal appearance, atherosclerotic. The basilar artery and posterior cerebral arteries appear normal. No aneurysms, vascular occlusions, or intracranial stenoses are identified. Procedure Note Yen Resendiz MD - 05/02/2024 PROCEDURE: CT ANGIO BRAIN NECK STROKE, DATE/TIME OF EXAM: 48:22 AM, LOCATION [facility] INDICATION: R53.1: Weakness I63.9: Cerebrovascular accident (CVA), unspecified mechanism (HCC) ADDITIONAL CLINICAL INFORMATION: Ordering Provider Reason For Exam: Code stroke Technologist Note: None Additional: Generalized weakness, more so on the right side. EXAMINATION: 1. Computed tomographic (CT) angiography of the head with contrast 2. CT angiography of the neck with contrast CONTRAST: 75 mL Isovue-370 TECHNIQUE: CT angiography of the head and neck was obtained after the uneventful administration of 75 mL Isovue-370 intravenous contrast.Three dimensional postprocessing was performed by the technologist and sent to the workstation for review. Stenosis measurements are based on NASCET criteria. CT dose reduction technique was used, including Automated Exposure Control. COMPARISON: CT brain stroke from same day, CT angio brain the neck 04/28/2024 FINDINGS: Non-angiographic findings: The separately dictated CT brain stroke from the same day contain nonangiographic findings within the head. There is dextroscoliosis of the cervical spine. There is chronic. I/II anterolisthesis of C3 on C4 with chronic jumped facet joint on the right and severe facet joint osteoarthritis at C3-C4 and C4-C5 bilaterally and moderately at C2-C3 on the left. Angiographic findings: There is atherosclerotic disease of the aortic arch. The configurationof the brachiocephalic vessels is typical. The innominate artery and both subclavian arteries appear normal. Redemonstrated complete occlusion ofthe right common carotid artery, right internal carotid artery with reconstitution of the supraclinoid segment likely via retrograde flow. Redemonstrated complete occlusion of the left common carotid artery with reconstitution of the left ICA just above the carotid bifurcation via retrograde flow. However, the left internal carotid artery is smaller in caliber than seen on the prior study. 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 Dominant left vertebral artery is redemonstrated,there is atherosclerosis without significant stenosis. There is atherosclerotic disease involving the distal internal carotid arteries without significant focal stenosis. Unchanged atherosclerotic disease of the distal left internal carotid artery with up to moderate stenosis. The anterior and middle cerebral arteries appear patent. The right V4 segment of the vertebral artery is small in caliber after reconstitution. The left distal vertebral artery is grossly normal appearance, atherosclerotic. The basilar artery and posterior cerebral arteries appear normal. No aneurysms, vascular occlusions, orintracranial stenoses are identified. IMPRESSION: 1.Diffusely slightly smaller caliber of the left internal carotid artery when compared to the prior study. 2.Redemonstration of complete occlusion of the right common and internal carotid arteries, the left common carotid artery and the right vertebral artery with distal reconstitution of these vessels from retrograde flowas detailed above. 3.The anterior, middle and posterior cerebral arteries are patent and unchanged in appearance. Viz.AI was used for large vessel occlusion detection. Report dictated by Yuri Caon MD (vice president of compliance). I, Yen Resendiz MD have personally reviewed and interpreted this examination/study. > Interpreting Provider: Yen Resendiz MD on 05/02/2024 10:24 AM Martín Daly DO CT ORDERABLES * CARDIAC EKG ORDER (04/29/2024 2:17 PM INS[employer]BUTION) Narrative 04/29/2024 2:17 PM [employer] Ordered by an unspecified provider. Scanned Document CARDIAC SERVICES ORD ERABLES * XR Skull 3Vw or Less (04/28/2024 5:40 PM INS[employer]RIBUTION) Anatomical Region Laterality Modality Head Digital Radiogra phy 04/29/2024 7:33 AM [employer]ION Impressions 04/29/2024 8:38 AM [employer]ION IMPRESSION: No metallic objects seen in the skull. Report dictated by David Denis MD,(vice president of compliance). Wilfredo Crane MD have personally reviewed and interpreted this examination/study. > Interpreting Provider: Wilfredo Bach MD on 04/29/2024 8:38 AM Narrative 04/29/2024 8:38 AM [employer]ION PROCEDURE: XR SKULL 3VW OR LESS, DATE/TIME OF EXAM: 04/28/2024 5:40 PM, LOCATION [facility] INDICATION: R53.1: Weakness ADDITIONAL CLINICAL INFORMATION: Ordering Provider Reason For Exam: MRI Clearance Technologist Note: Additional: COMPARISON: None. FINDINGS: The calvarium is intact. No definite facial fracture is identified. The visible sinuses are unremarkable. No air-fluid level is seen. Procedure Note Wilfredo Bach MD - 04/29/2024 PROCEDURE: XR SKULL 3VW OR LESS, DATE/TIME OF EXAM: 04/28/2024 5:40 PM, LOCATION [facility] INDICATION: R53.1: Weakness ADDITIONAL CLINICAL INFORMATION: Ordering Provider Reason For Exam: MRI Clearance Technologist Note: Additional: COMPARISON: None. FINDINGS: The calvarium is intact. No definite facial fracture is identified. The visible sinuses are unremarkable. No air-fluid level is seen. IMPRESSION: No metallic objects seen in the skull. Report dictated by David Denis MD,(vice president of compliance). Wilfredo Crane MD have personally reviewed and interpreted this examination/study. > Interpreting Provider: Wilfredo Bach MD on 04/29/2024 8:38 AM Tristan Quinn MD DIAGNOSTIC IMAGING O RDERABLES * XR Abdomen Kub Portable (04/28/2024 5:40 PM INSPECT[employer] DISTRIBUTION) Anatomical Region Laterality Modality Abdomen Digital Radiogra phy 04/29/2024 7:31 AM [employer]BUTION Impressions 04/29/2024 8:34 AM INS[employer]IDE [employer] DIST[employer]BUTION IMPRESSION: Non-obstructive bowel gas pattern. No metallic objects in the field of view. Report dictated by David Denis MD, (vice president of compliance). Wilfredo Crane MD have personally reviewed and interpreted this examination/study. > Interpreting Provider: Wilfredo Bach MD on 04/29/2024 8:34 AM Narrative 04/29/2024 8:34 AM [employer]ION PROCEDURE: XR ABDOMEN KUB PORTABLE, DATE/TIME OF EXAM: 04/28/2024 5:40 PM, LOCATION [facility] INDICATION: R53.1: Weakness ADDITIONAL CLINICAL INFORMATION: Ordering Provider Reason For Exam: MRI Clearance Technologist Note: Additional: COMPARISON: None. FINDINGS: There is no dilatation of small or large bowel. No pneumoperitoneum or pathological calcification is seen. The visible osseous structures are intact. The lung bases are clear. There is contrast in the bladder and bilateral collecting system. Procedure Note Wilfredo Bach MD - 04/29/2024 PROCEDURE: XR ABDOMEN KUB PORTABLE, DATE/TIME OF EXAM: 04/28/2024 5:40PM, LOCATION [facility] INDICATION: R53.1: Weakness ADDITIONAL CLINICAL INFORMATION: Ordering Provider Reason For Exam: MRI Clearance Technologist Note: Additional: COMPARISON: None. FINDINGS: There is no dilatation of small or large bowel. No pneumoperitoneum or pathological calcification is seen. The visible osseous structures are intact. The lung bases are clear. There is contrast in the bladder and bilateral collecting system. IMPRESSION: Non-obstructive bowel gas pattern. No metallic objects in the field of view. Report dictated by David Denis MD, (vice president of compliance). Wilfredo Crane MD have personally reviewed and interpreted this examination/study. > Interpreting Provider: Wilfredo Bach MD on 04/29/2024 8:34 AM Tristan Quinn MD DIAGNOSTIC IMAGING O RDERABLES * XR Pelvis 1 or 2Vw (04/28/2024 5:40 PM INS[employer] DISTRIBUTION) Anatomical Region Laterality Modality Pelvis Digital Radiogra phy 04/29/2024 7:28 AM [employer] DISTRIBUTION Impressions 04/29/2024 8:32 AM [employer]BUTION IMPRESSION: No acute fracture identified. No metallic objects identified. Report dictated by David Denis MD, (vice president of compliance). Wilfredo Crane MD have personally reviewed and interpreted this examination/study. > Interpreting Provider: Wilfredo Bach MD on 04/29/2024 8:32 AM Narrative 04/29/2024 8:32 AM INS[employer] DIST[employer]BUTION PROCEDURE: XR PELVIS 1 OR 2VW, DATE/TIME OF EXAM: 04/28/2024 5:40 PM, LOCATION [facility] INDICATION: R53.1: Weakness ADDITIONAL CLINICAL INFORMATION: Ordering Provider Reason For Exam: MRI Clearance Technologist Note: Additional: COMPARISON: None. FINDINGS: No acute fracture is identified. The femoral heads appear well-seated within their respective acetabula. The pubic symphysis is intact. Bone density and texture are normal. The sacroiliac joints are normal. There is contrast in the bladder. Sacrum is not well visualized. Procedure Note Wilfredo Bach MD - 04/29/2024 PROCEDURE: XR PELVIS 1 OR 2VW, DATE/TIME OF EXAM: 04/28/2024 5:40 PM, LOCATION [facility] INDICATION: R53.1: Weakness ADDITIONAL CLINICAL INFORMATION: Ordering Provider Reason For Exam: MRI Clearance Technologist Note: Additional: COMPARISON: None. FINDINGS: No acute fracture is identified. The femoral heads appear well-seated within their respective acetabula. The pubic symphysis is intact. Bone density and texture are normal. The sacroiliac joints are normal. Thereis contrast in the bladder. Sacrum is not well visualized. IMPRESSION: No acute fracture identified. No metallic objects identified. Report dictated by David Denis MD, (vice president of compliance). Wilfredo Crane MD have personally reviewed and interpreted this examination/study. > Interpreting Provider: Wilfredo Bach MD on 04/29/2024 8:32 AM Tristan Quinn MD DIAGNOSTIC IMAGING O RDERABLES * TROPONIN-I HIGH SENSITIVE REFLEX 1HOUR (04/28/2024 1:26 PM INS[employer]BUTION) Troponin I High Sensitive 4 <=35 ng/L 04/28/2024 2:11 PM INS[employer]IDE STEAM DISTRIBUTION [facility] Delta Troponin I HS 04/28/2024 2:11 PM [facility] Comment:Delta value intentio darlene not calculated. Baseline to 1 hour specimen collection interval exceeded. Blood BLOOD SPECIMEN / Unknown Venipuncture / Unknown 04/28/2024 1:26 PM [employer] DIST[employer]BUTION 04/28/2024 1:32 PM [employer] DISTRIBUTION Noam Jeff MD LAB - CHEMISTRY GHAZALA CABRAL Performing Organization Address City/[facility]/ZIP Co de Phone Number [facility] [address] [place] [address], [place] [phone] * (ABNORMAL) LIPID PROFILE (04/28/2024 11:48 AM INSPECTOR [employer]IDE STEAM DISTRIBUTION) [facility] Cholesterol Total 187 <200 mg/dL 04/28/2024 12:32 PM [facility] HDL 44 >40 mg/dL 04/28/2024 12:32 PM [facility] Comment: ATP III Classification of HDL Cholesterol: <40 mg/dL: Considered a major risk factor. >60 mg/dL: Considered a negative risk factor. LDL Calculated 122(H) <100 mg/dL 04/28/2024 12:32 PM [facility] Comment: ATP III Classification of LDL Cholesterol: <100 mg/dL: Optimal 100 - 129 mg/dL: Near Optimal/Above Optimal 130 - 159 mg/dL: Borderline High 160 - 189 mg/dL: High >190 mg/dL: Very High Triglycerides 107 <150 mg/dL 04/28/2024 12:32 PM [facility] Comment: ATP III Classification of Triglycerides: <150 mg/dL: Normal 150 - 199 mg/dL: Borderline High 200 - 400 mg/dL: High >500 mg/dL: Very High Blood BLOOD SPECIMEN / Unknown Venipuncture / Unknown 04/28/2024 11:48 AM [employer]BUTION 04/28/2024 12:00 PM [employer]BUTION Noam Jeff MD LAB - CHEMISTRY GHAZALA CABRAL [facility] [address] [place] [phone], [place] [phone] * BLOOD TYPE VERIFICATION (04/28/2024 11:45 AM INS[employer] DISTRIBUTION) ABO Rh A POS 04/28/2024 12:33 PM INSPECTOR [employer]IDE STEAM DISTRIBUTION [facility] BLOOD BANK LAB Blood Bank BLOOD SPECIMEN / Unknown 04/28/2024 11:45 AM [employer] DIST[employer]BUTION 04/28/2024 12:00 PM [employer]BUTION Noam Jeff MD LAB - BLOOD BANK ORD ERABLES [facility] BLOOD BANK LAB [address] [place] [address], [facility] [phone] * INR WHOLE BLOOD - POINT OF CARE (IP) STROKE (04/28/2024 9:35 AM INS[employer] DISTRIBUTION) INR 0.9 0.9 - 1.2 04/28/2024 12:02 PM [employer] DISTRIBUTION [facility] Device [id number] 04/28/2024 12:02 PM INS[employer] DISTRIBUTION [facility] Makeup Instructor ID [id number] 04/28/2024 12:02 PM [facility] Blood BLOOD SPECIMEN / Unknown 04/28/2024 9:35 AM [employer] DIST[employer]BUTION 04/28/2024 12:01 PM [employer]BUTION Noam Jeff MD LAB - POINT OF CARE ORDERABLES Performing Organization Address City/[facility]/ZIP Co de Phone Number [facility] [address] [place] [phone], [place] [phone] * CREATININE - POCT INTERFACED (04/28/2024 9:35 AM INSPECT[employer] DISTRIBUTION) Creatinine POCT 0.82 0.30 - 1.30 mg/dL 04/28/2024 9:46 AM [facility] eGFR >90 >=90 mL/min/1.7 3 m2 04/28/2024 9:46 AM [facility] Blood BLOOD SPECIMEN / Unknown 04/28/2024 9:35 AM [employer]BUTION 04/28/2024 9:46 AM [employer]BUTION Noam Jeff MD LAB - POINT OF CARE ORDERABLES [facility] [address] [place] [address], [facility] [phone] * (ABNORMAL) PT-INR [facility] (04/28/2024 9:23 AM INSPECT[employer]IDE STE[employer] DISTRIBUTION) [facility] PT 12.0(L) 12.1 - 14.8 Seconds 04/28/2024 9:59 AM [facility] INR 0.9 See Comment 04/28/2024 9:59 AM [facility] Comment:The suggested therap eutic range for standard coumadin (warfarin) therapy is an INR of 2.0-3.0. For high-risk patients (Mechanical Mitral Valve Prosthesis, etc.), the suggested prophylactic therapeutic range is an INR of 2.5-3.5. Blood BLOOD SPECIMEN / Unknown Venipuncture / Unknown 04/28/2024 9:23 AM [employer] DIST[employer]BUTION 04/28/2024 9:27 AM [employer] DISTRIBUTION Chaparro Hines MD LAB - COAGULATION OR DERABLES Performing Organization Address City/[facility]/ZIP Co de Phone Number [address] [address], [facility] [phone] * TYPE + SCREEN PANEL (04/28/2024 9:23 AM INS[employer]BUTION) [facility] Antibody Screen NEG 10:15 AM INS[employer] DISTRIBUTION [facility] BLOOD BANK LAB ABO Rh A POS 04/28/2024 10:15 AM INS[employer]IDE [employer]AM DISTRIBUTION [facility] BLOOD BANK LAB Blood Bank BLOOD SPECIMEN / Unknown Venipuncture / Unknown 04/28/2024 9:23 AM [employer]BUTION 04/28/2024 9:37 AM [employer] DIST[employer]BUTION Chaparro Hines MD LAB - BLOOD BANK ORD ERABLES [facility] BLOOD BANK LAB [address] [place] [phone], [facility] [phone] * (ABNORMAL) CBC W AUTO DIFFERENTIAL (04/28/2024 9:23 AM INSPECTOR [employer] DISTRIBUTION) [facility] WBC 12.1(H) 4.0 - 10.7 x10E9/L 04/28/2024 9:41 AM [facility] RBC Count 4.59 4.30 - 5.80 x10E12/L 04/28/2024 9:41 AM [facility] Hemoglobin 14.1 13.3 - 17.5 g/dL 04/28/2024 9:41 AM [facility] Hematocrit 41.5 38.7 - 51.1 % 04/28/2024 9:41 AM [facility] MCV 90.4 80.0 - 98.0 fL 04/28/2024 9:41 AM [facility] MCH 30.7 26.7 - 33.6 pg 04/28/2024 9:41 AM [facility] MCHC 34.0 31.7 - 36.3 g/dL 04/28/2024 9:41 AM [facility] RDW-CV 13.2 11.3 - 14.8 % 04/28/2024 9:41 AM [facility] Platelet Count 239 150 - 420 x10E9/L 04/28/2024 9:41 AM [facility] MPV 11.5(H) 7.8 - 11.4 fL 04/28/2024 9:41 AM [facility] Neutrophil % 87.6(H) 41.0 - 74.0 % 04/28/2024 9:41 AM [facility] Lymphocyte % 4.0(L) 17.0 - 47.0 % 04/28/2024 9:41 AM [facility] Monocyte % 7.5 3.0 - 11.0 % 04/28/2024 9:41 AM [facility] Eosinophil % 0.0 0.0 - 7.0 % 04/28/2024 9:41 AM [facility] Basophil % 0.4 0.0 - 1.6 % 04/28/2024 9:41 AM [facility] Immature Granulocytes % 0.5 0.0 - 1.0 % 04/28/2024 9:41 AM [facility] Neutrophil Absolute 10.58(H) 1.60 - 7.50 x10E9/L 04/28/2024 9:41 AM [facility] Lymphocyte Absolute 0.48(L) 1.00 - 4.40 x10E9/L 04/28/2024 9:41 AM INSPECTOR [employer]SIDE STEAM DISTRIBUTION [facility] Monocyte Absolute 0.90 0.15 - 1.00 x10E9/L 04/28/2024 9:41 AM [facility] Eosinophil Absolute 0.00 0.00 - 0.60 x10E9/L 04/28/2024 9:41 AM [facility] Basophil Absolute 0.05 0.00 - 0.13 x10E9/L 04/28/2024 9:41 AM [facility] Blood BLOOD SPECIMEN / Unknown Venipuncture / Unknown 04/28/2024 9:23 AM INS[employer] DISTRIBUTION 04/28/2024 9:36 AM [facility] Chaparro Hines MD LAB - HEMATOLOGY ORD ERABLES [facility] [address] [place] [address], [facility] [phone] Care Teams Barrel Drainer Relationship Specialty [place] [id number] [address] [facility] [address] [place] [id number] PCP - General Internal Medicine 04/28/24
--- OUTSIDE RECORDS SUMMARY | 2024-08-12 08:29 | XMS_ITS | Encounter Summary ---
Author Organization [employer] Address 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 Gender Identity Not on file Sexual Orientation Not on file documented as of this encounter Plan of Treatment Not on file documented as of this encounter Procedures Procedure Name Priority Date/Time Associated Diagnosis Comments CBC WITH DIFFERENTIAL Stat 11/27/2007 8:25 AM CDT COMPREHENSIVE METABOLIC PANEL Stat 11/27/2007 8:25 AM CDT CBC WITH DIFFERENTIAL Stat 11/06/2007 8:37 AM CDT COMPREHENSIVE METABOLIC PANEL Stat 11/06/2007 8:37 AM CDT CBC WITH DIFFERENTIAL Stat 10/30/2007 3:14 PM CDT COMPREHENSIVE METABOLIC PANEL Stat 10/30/2007 3:14 PM CDT documented in this encounter Results * (ABNORMAL) COMPREHENSIVE METABOLIC PANEL (11/27/2007 8:25 AM CDT) BUN 20 6 - 20 mg/dL [facility] ALKALINE PHOSPHATASE 107 40 - 129 U/L [facility] ALBUMIN 3.9 3.4 - 4.8 g/dL [facility] CHLORIDE 95(L) 96 - 108 mmol/L [facility] TOTAL PROTEIN 7.4 6.3 - 8.6 g/dL [facility] SODIUM 132(L) 135 - 145 mmol/L [facility] GLUCOSE 218(H) 65 - 99 mg/dL [facility] AST 17 12 - 38 U/L [facility] CO2 29 22 - 30 mmol/L [facility] CALCIUM 9.1 8.4 - 10.2 mg/dL [facility] POTASSIUM 4.6 3.5 - 4.9 mmol/L [facility] CREATININE 1.11 0.67 - 1.17 mg/dL [facility] ALT 11 0 - 41 U/L [facility] BILIRUBIN TOTAL 0.2 0.2 - 1.0 mg/dL [facility] GFR, >60 >=60 mL/min/1. 7 sq meter [facility] GFR >60 >=60 mL/min/1. 7 sq meter [facility] Comment: Modification of Diet in Renal Disease (MDRD) study formula. Estimated GFR rate interpretative information for both Americans and non- Americans is available on the [facility] at: [email or web address] Select: Lab Policies and Procedures Select: Reference Ranges - GFR Blood specimen (specimen) 11/27/2007 8:25 AM CDT 11/27/2007 8:25 AM CDT Ever [employer] CHEMISTRY ORDERABLES Edited [facility] CLIA# [id number] [address] [place] [address] * (ABNORMAL) CBC WITH DIFFERENTIAL (11/27/2007 8:25 AM CDT) HEMATOCRIT 37.2(L) 40.0 - 48.0 % [facility] RDW-STDEV 54.2(H) 37.1 - 48.7 fL [facility] RBC 3.81(L) 4.50 - 5.40 M/uL [facility] Comment: All cbc indices show significant change from prior results, correlate clinically and redraw if necessary. MCHC 32.8 31.5 - 35.5 % [facility] MCV 97.6 82.0 - 99.0 fL [facility] PLATELETS 293 140 - 350 K/uL [facility] HEMOGLOBIN 12.2(L) 13.6 - 16.5 g/dL [facility] RDW 16.2(H) 11.5 - 14.5 % [facility] WBC 13.6(H) 4.0 - 9.8 K/uL [facility] MCH 32.0 27.2 - 32.6 pg [facility] MPV 10.2 9.3 - 12.4 fL [facility] CLUMPED PLATELETS Present [facility] NEUTROPHIL ABSOLUTE 10.88(H) 1.90 - 7.00 K/uL [facility] NEUTROPHILS, SEG 66 45 - 70 % [facility] BASOPHILS 0 0 - 2 % [facility] ANISOCYTOSIS Slight [facility] EOSINOPHIL ABSOLUTE 0.14 0.00 - 0.70 K/uL [facility] MONOCYTES 7 3 - 13 % [facility] REVIEWED ON SMEAR WBC & Plt Reviewed [facility] ATYPICAL LYMPHOCYTE 1 0 - 5 % [facility] LYMPHOCYTE ABSOLUTE 0.41(L) 0.70 - 4.50 K/uL [facility] BANDS 14(H) 0 - 5 % [facility] TOXIC GRANULATION Slight [facility] METAMYELOCYTE 4(H) <=0 % [facility] BASOPHILS ABSOLUTE 0.00 0.00 - 0.20 K/uL [facility] PLATELET EST. Consistent w/ count Normal [facility] EOSINOPHILS 1 0 - 7 % [facility] MONOCYTE ABSOLUTE 0.95 0.10 - 1.30 K/uL [facility] MYELOCYTES 5(H) <=0 % [facility] LYMPHOCYTES 2(L) 16 - 45 % [facility] Blood specimen (specimen) 11/27/2007 8:25 AM CDT 11/27/2007 8:25 AM CDT us Hsiaoou Hu HEMATOLOGY ORDERABLES Edited [facility] CLIA# [id number] [address] [place] [address] * (ABNORMAL) COMPREHENSIVE METABOLIC PANEL (11/06/2007 8:37 AM CDT) CREATININE 0.84 0.67 - 1.17 mg/dL [facility] ALT 25 0 - 41 U/L [facility] SODIUM 133(L) 135 - 145 mmol/L [facility] ALKALINE PHOSPHATASE 109 40 - 129 U/L [facility] CO2 28 22 - 30 mmol/L [facility] BILIRUBIN TOTAL 0.3 0.2 - 1.0 mg/dL [facility] POTASSIUM 4.0 3.5 - 4.9 mmol/L [facility] TOTAL PROTEIN 7.3 6.3 - 8.6 g/dL [facility] GLUCOSE 193(H) 65 - 99 mg/dL [facility] AST 17 12 - 38 U/L [facility] BUN 13 6 - 20 mg/dL [facility] CALCIUM 9.2 8.4 - 10.2 mg/dL [facility] ALBUMIN 4.1 3.4 - 4.8 g/dL [facility] CHLORIDE 95(L) 96 - 108 mmol/L [facility] GFR, >60 >=60 mL/min/1. 7 sq meter [facility] GFR >60 >=60 mL/min/1. 7 sq meter [facility] Comment: Estimated GFR rate interpretative information for both Americans and non- Americans is available on the [facility] at: [email or web address] Select: Lab Policies and Procedures Select: Reference Ranges - GFR Blood specimen (specimen) 11/06/2007 8:37 AM CDT 11/06/2007 8:45 AM CDT Hsiaoou Hu CHEMISTRY ORDERABLES Edited [facility] CLIA# [id number] [address] [place] [address] * (ABNORMAL) CBC WITH DIFFERENTIAL (11/06/2007 8:37 AM CDT) HEMOGLOBIN 13.7 13.6 - 16.5 g/dL [facility] RDW 14.6(H) 11.5 - 14.5 % [facility] MPV 9.9 9.3 - 12.4 fL [facility] WBC 5.9 4.0 - 9.8 K/uL [facility] MCH 31.1 27.2 - 32.6 pg [facility] HEMATOCRIT 41.1 40.0 - 48.0 % [facility] RDW-STDEV 48.0 37.1 - 48.7 fL [facility] RBC 4.40(L) 4.50 - 5.40 M/uL [facility] MCHC 33.3 31.5 - 35.5 % [facility] PLATELETS 189 140 - 350 K/uL [facility] MCV 93.4 82.0 - 99.0 fL [facility] BASOPHILS ABSOLUTE 0.03 0.00 - 0.20 K/uL [facility] MONOCYTES 10 3 - 13 % [facility] MONOCYTE ABSOLUTE 0.56 0.10 - 1.30 K/uL [facility] NEUTROPHILS 77(H) 45 - 70 % [facility] NEUTROPHIL ABSOLUTE 4.57 1.90 - 7.00 K/uL [facility] EOSINOPHILS 3 0 - 7 % [facility] EOSINOPHIL ABSOLUTE 0.15 0.00 - 0.70 K/uL [facility] LYMPHOCYTES 10(L) 16 - 45 % [facility] LYMPHOCYTE ABSOLUTE 0.60(L) 0.70 - 4.50 K/uL [facility] BASOPHILS 1 0 - 2 % [facility] Blood specimen (specimen) 11/06/2007 8:37 AM CDT 11/06/2007 8:45 AM CDT Hsiaoou Hu HEMATOLOGY ORDERABLES Edited INTERFACE SYSTEM Refer to clinic/hospital department [facility] CLIA# [id number] [address] [place] [address] * (ABNORMAL) COMPREHENSIVE METABOLIC PANEL (10/30/2007 3:14 PM CDT) POTASSIUM 4.4 3.5 - 4.9 mmol/L [facility] GLUCOSE 107(H) 65 - 99 mg/dL [facility] AST 18 12 - 38 U/L [facility] BUN 14 6 - 20 mg/dL [facility] CALCIUM 9.3 8.4 - 10.2 mg/dL [facility] CHLORIDE 96 96 - 108 mmol/L [facility] ALBUMIN 4.0 3.4 - 4.8 g/dL [facility] CREATININE 0.85 0.67 - 1.17 mg/dL [facility] SODIUM 134(L) 135 - 145 mmol/L [facility] ALT 40 0 - 41 U/L [facility] ALKALINE PHOSPHATASE 136(H) 40 - 129 U/L [facility] BILIRUBIN TOTAL 0.2 0.2 - 1.0 mg/dL [facility] CO2 30 22 - 30 mmol/L [facility] TOTAL PROTEIN 7.0 6.3 - 8.6 g/dL [facility] GFR, >60 >=60 mL/min/1. 7 sq meter [facility] GFR >60 >=60 mL/min/1. 7 sq meter [facility] Comment: Estimated GFR rate interpretative information for both Americans and non- Americans is available on the [facility] Intr[facility] at: [email or web address] Select: Lab Policies and Procedures Select: Reference Ranges - GFR Blood specimen (specimen) 10/30/2007 3:14 PM CDT 10/30/2007 3:17 PM CDT Ever [employer] CHEMISTRY ORDERABLES Edited [facility] CLIA# [id number] [address] [facility] [place], [place] [address] * (ABNORMAL) CBC WITH DIFFERENTIAL (10/30/2007 3:14 PM CDT) WBC 6.9 4.0 - 9.8 K/uL [facility] MCH 30.9 27.2 - 32.6 pg [facility] MPV 10.8 9.3 - 12.4 fL [facility] HEMATOCRIT 40.0 40.0 - 48.0 % [facility] RDW-STDEV 44.7 37.1 - 48.7 fL [facility] RBC 4.34(L) 4.50 - 5.40 M/uL [facility] MCHC 33.5 31.5 - 35.5 % [facility] MCV 92.2 82.0 - 99.0 fL [facility] PLATELETS 96(L) 140 - 350 K/uL [facility] Comment: Results to be confirmed. HEMOGLOBIN 13.4(L) 13.6 - 16.5 g/dL [facility] RDW 13.8 11.5 - 14.5 % [facility] MONOCYTES 10 3 - 13 % [facility] MONOCYTE ABSOLUTE 0.67 0.10 - 1.30 K/uL [facility] NEUTROPHILS 76(H) 45 - 70 % [facility] NEUTROPHIL ABSOLUTE 5.21 1.90 - 7.00 K/uL [facility] EOSINOPHILS 2 0 - 7 % [facility] EOSINOPHIL ABSOLUTE 0.11 0.00 - 0.70 K/uL [facility] LYMPHOCYTES 12(L) 16 - 45 % [facility] LYMPHOCYTE ABSOLUTE 0.84 0.70 - 4.50 K/uL [facility] BASOPHILS 0 0 - 2 % [facility] BASOPHILS ABSOLUTE 0.03 0.00 - 0.20 K/uL [facility] Blood specimen (specimen) 10/30/2007 3:14 PM CDT 10/30/2007 3:17 PM CDT Hsiaoou Hu HEMATOLOGY ORDERABLES Edited INTERFACE SYSTEM Refer to clinic/hospital department [facility] CLIA# [id number] [address] [place] [address] documented in this encounter Visit Diagnoses Diagnosis Malignant neoplasm of head, face, and neck (CMS/HCC) Malignant neoplasm of head, face, and neck documented in this encounter Care Teams Ice Bag Assembler Relationship Specialty [place] [address] [place] [address] PCP - General 04/25/09 documented as of this encounter
--- OUTSIDE RECORDS SUMMARY | 2024-08-12 08:29 | XMS_ITS | Continuity of Care Document ---
Author Organization [facility] Address [address] [place] [address] Phone Care Team Providers Care Social Human Services Assistants Name Role Phone Raoul Salomon DO Unavailable Unavailable Advance Directives Directive Yes / No Effective Date File Name No Information Encounters Encounter Description Practice Location Reason(s) For Visit Diagnoses Date Provider Providers Copied on Encounter [facility], [address], [place], [place], [id number], [place] tel:[phone] [facility] No Information Aime Suarez. [address] [facility], [place], [address], [place]. tel: [phone] Family History Family Member Type Diagnosis Age At Onset No Information Payers Payer name Insurance type Covered green party ID Authoriza tion(s) [facility] Commercial CI [id number] Social History Type Description Quantity Date [...]
--- OUTSIDE RECORDS SUMMARY | 2024-08-12 08:29 | XMS_ITS | Encounter Summary ---
Author Organization [employer] Address [address] [place] [address] Care Team Providers Care Director Of Laboratory Operations Name Role Phone Clifton Garcia MD Primary Care Provider [phone] Encounter Details Date Type Department Care Team (Latest Contact Info) Description 09/28/2008 Outpatient Historical [facility] David Seymour MD [address] [place] [address] [address] [place] [address] Malignant Neoplasm of Oropharynx, Unspecified Site (CMS/HCC) Social History Tobacco Use Types Packs/Day Years Used Date Smoking Tobacco: Never Assessed Sex and Gender Information Value Date Recorded Sex Assigned at Not on file 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
--- OUTSIDE RECORDS SUMMARY | 2024-08-12 08:29 | XMS_ITS | Clinical Summary ---
Author Organization [facility] Address [address] [place] [address] Care Team Providers Care Ob/Gyn Name Role Phone Clifton Garcia MD Primary Care Provider [phone] Source Comments [facility] [employer],non-owned Affiliates and Associated Physician Practices is amultiple site organization consisting of ambulatory clinics and hospital sitesin [place] and [place]. This disclosure is being madepursuant to the Care Everywhere program and may not contain all information available regarding this patient. Last updated 18.[facility] [employer] Allergies No known active allergies Medications * [...] 04/28/2024 Stenosis of right vertebral artery 04/28/2024 Encounters Date Type Department Care Team Description 04/28/2024 9:22 AM [employer] - 06/02/2024 7:58 PM [employer] Hospital Encounter [facility] [phone] [place] [address] Noam Jeff MD Esechie, MD Addy Hudson Aman, DO Edgell, Randall C, MD Scott, Jordan K, MD Linares, Guillermo, MD Nangle, Sarah E, DO Sonoda, Kento, MD Madi, Mahmoud, MD Fernelius, Joshua, MD Syed, MD Patrick Harris Keniesha O, MD Patel, MD [facility] Discharge Disposition: Half-Way Facility from Last 3 Months Immunizations Name Administration Dates Next Due INFLUENZA [...] Recorded Patient Health Questionnaire-2 Score 0 05/12/2024 [facility] [place] of Occupat ional Health - Occupational Stress [...] any time in the past 12 m [facility] [place], were you homeless or living in a chcf (including now)? No 04/28/2024 Sex and Gender Information Value Date Recorded Sex Assigned at Not on file Gender Identity Not on file Sexual Orientation Not on file Last Filed Vital Signs Vital Sign Reading Time Taken Comments Blood Pressure 138/103 06/02/2024 7:26 PM [employer] Pulse 101 06/02/2024 7:26 PM [employer] Temperature 36.4 C (97.5 F) 06/02/2024 7:34 AM [employer] Respiratory Rate 18 06/02/2024 4:27 AM [employer] Oxygen Saturation 98% 06/02/2024 7:34 AM [employer] Inhaled Oxygen Concentration 28% 05/06/2024 7 :59 PM [employer] Weight 56.2 kg (124 lb) 05/27/2024 9:15 PM [employer] Height 177.8 cm (5' 10 ) 05/11/2024 8:00 AM [employer] Body Mass Index 17.79 05/11/2024 8:00 AM [employer] Plan of Treatment Health Maintenance Due Date Last Done Comments COLOGUARD (AGES 45-75) - COLON CA SCREENING 1963 COLON MONITORING 1963 COLONOSCOPY - COLON CA SCREENING 1963 CT COLONOGRAPHY - COLON CA SCREENING 1963 Colorectal Cancer Screening 1963 FIT - COLON CA SCREENING 1963 FLEX SIG - COLON CA SCREENING 1963 HIV SCREENING 09/28/1978 HEPATITIS C SCREENING 09/24/1981 DTAP/TDAP/TD VACCINES (1 - Tdap) 09/28/1982 PNEUMOCOCCAL VACCINE 50+ (1 of 2 - PCV) 09/28/1982 ZOSTER VACCINE (1 of 2) 09/28/2013 Respiratory Syncytial Virus (RSV) Vaccine Pt: or over 60 yrs (1 - Risk 60-74 years 1-dose series) 2023 COVID-19 VACCINE ( - season) 2024 DIABETES RETINOPATHY SCREENING 04/28/2024 DIABETES-FOOT EXAM WITH MONOFILAMENT 04/28/2024 DEPRESSION SCREENING 06/23/2024 04/28/2024 DIABETES - URINE PROTEIN SCREENING 06/23/2024 DIABETES-HGB A1C 10/30/2024 05/02/2024, 11/2023, 11/16/2019, Additional history exists DIABETES-SERUM CREATININE 05/29/20252023, 05/22/2024, 05/21/2024, Additional history exists INFLUENZA VACCINE Completed 06/01/2024, 07/13/2019 HEPATITIS B VACCINE Aged Out No longe r eligible based on patient's age to complete this topic HIB VACCINE Aged Out No longer eligi ble based on patient's age to complete this topic HPV VACCINE Aged Out No longer eligi ble based on patient's age to complete this topic MENINGOCOCCAL (Group B) VACCINE Aged Out No longer eligible based on patient's age to complete this topic MENINGOCOCCAL VACCINE Aged Out No katherine shelbie eligible based on patient's age to complete this topic Procedures Procedure Name Priority Date/Time Associated Diagnosis Comments GLUCOSE - POINT OF CARE Routine 06/02/2024 4:32 PM [employer] GLUCOSE - POINT OF CARE Routine 06/02/2024 11:17 AM [employer] GLUCOSE - POINT OF CARE Routine 06/02/2024 7:57 AM [employer] GLUCOSE - POINT OF CARE Routine 06/02/2024 4:35 AM [employer]ING GLUCOSE - POINT OF CARE Routine 06/02/2024 12:30 AM SUPER[employer]ING GLUCOSE - POINT OF CARE Routine 06/01/2024 8:52 PM SU[employer]ING GLUCOSE - POINT OF CARE Routine 06/01/2024 5:23 PM SU[employer]ING GLUCOSE - POINT OF CARE Routine 06/01/2024 2:47 PM SU[employer]ING GLUCOSE - POINT OF CARE Routine 06/01/2024 8:53 AM SUPER[employer]ING GLUCOSE - POINT OF CARE Routine 06/01/2024 7:31 AM SUPER[employer]OR [employer]ING GLUCOSE - POINT OF CARE Routine 06/01/2024 4:53 AM SU[employer]ING GLUCOSE - POINT OF CARE Routine 06/01/2024 12:38 AM SU[employer]ING GLUCOSE - POINT OF CARE Routine 05/31/2024 8:27 PM SU[employer]ING GLUCOSE - POINT OF CARE Routine 05/31/2024 4:27 PM SU[employer]ING GLUCOSE - POINT OF CARE Routine 05/31/2024 11:50 AM SUPER[employer]ING GLUCOSE - POINT OF CARE Routine 05/31/2024 8:31 AM SUPER[employer]ING GLUCOSE - POINT OF CARE Routine 05/31/2024 5:43 AM SU[employer]ING GLUCOSE - POINT OF CARE Routine 05/31/2024 12:42 AM SUPER[employer]OR [employer]ING GLUCOSE - POINT OF CARE Routine 05/30/2024 8:16 PM SU[employer]ING GLUCOSE - POINT OF CARE Routine 05/30/2024 4:40 PM SU[employer]OR [employer]ING GLUCOSE - POINT OF CARE Routine 05/30/2024 12:21 PM [employer]OR [employer]ING GLUCOSE - POINT OF CARE Routine 05/30/2024 8:19 AM SUPER[employer]OR [employer]ING GLUCOSE - POINT OF CARE Routine 05/30/2024 4:55 AM SUPER[employer]ING GLUCOSE - POINT OF CARE Routine 05/30/2024 1:09 AM SUPER[employer]ING GLUCOSE - POINT OF CARE Routine 05/30/2024 12:16 AM SU[employer]ING PHOSPHORUS BLOOD Routine 05/29/2024 8:44 PM SUPER[employer]OR [employer]ING MAGNESIUM BLOOD Routine 05/29/2024 8:44 PM [employer] CBC W/O DIFFERENTIAL Routine 05/29/2024 8:44 PM [employer] COMPREHENSIVE METABOLIC PANEL Routine 05/29/2024 8:44 PM [employer] GLUCOSE - POINT OF CARE Routine 05/29/2024 8:26 PM [employer]ING GLUCOSE - POINT OF CARE Routine 05/29/2024 11:33 AM SUPER[employer]OR [employer]ING GLUCOSE - POINT OF CARE Routine 05/29/2024 8:22 AM SUPER[employer]OR [employer]ING GLUCOSE - POINT OF CARE Routine 05/29/2024 3:46 AM SUPER[employer]OR [employer]ING GLUCOSE - POINT OF CARE Routine 05/29/2024 1:10 AM SU[employer]ING GLUCOSE - POINT OF CARE Routine 05/28/2024 8:19 PM SUPER[employer]OR [employer]ING GLUCOSE - POINT OF CARE Routine 05/28/2024 5:03 PM [employer]ING GLUCOSE - POINT OF CARE Routine 05/28/2024 11:43 AM SU[employer]ING GLUCOSE - POINT OF CARE Routine 05/28/2024 7:51 AM SU[employer]ING GLUCOSE - POINT OF CARE Routine 05/28/2024 3:47 AM SUPER[employer]ING GLUCOSE - POINT OF CARE Routine 05/27/2024 11:19 PM SUPER[employer]ING GLUCOSE - POINT OF CARE Routine 05/27/2024 8:14 PM SUPER[employer]ING GLUCOSE - POINT OF CARE Routine 05/27/2024 4:45 PM SUPER[employer]OR [employer]ING GLUCOSE - POINT OF CARE Routine 05/27/2024 12:20 PM SUPER[employer]OR [employer]ING GLUCOSE - POINT OF CARE Routine 05/27/2024 11:40 AM SUPER[employer]OR [employer]ING GLUCOSE - POINT OF CARE Routine 05/27/2024 8:29 AM SUPER[employer]ING GLUCOSE - POINT OF CARE Routine 05/27/2024 4:42 AM [employer]PER[employer]ING GLUCOSE - POINT OF CARE Routine 05/27/2024 12:25 AM SU[employer]OR [employer]ING GLUCOSE - POINT OF CARE Routine 05/26/2024 8:38 PM SUPER[employer]ING GLUCOSE - POINT OF CARE Routine 05/26/2024 5:03 PM SUPER[employer]OR [employer]ING GLUCOSE - POINT OF CARE Routine 05/26/2024 1:03 PM [employer]ING GLUCOSE - POINT OF CARE Routine 05/26/2024 12:24 PM [employer]PER[employer]ING GLUCOSE - POINT OF CARE Routine 05/26/2024 8:19 AM [employer]ING GLUCOSE - POINT OF CARE Routine 05/26/2024 3:28 AM SU[employer]ING GLUCOSE - POINT OF CARE Routine 05/26/2024 12:32 AM SUPER[employer]ING GLUCOSE - POINT OF CARE Routine 05/25/2024 8:21 PM SUPER[employer]OR [employer]ING GLUCOSE - POINT OF CARE Routine 05/25/2024 4:49 PM SUPER[employer]ING GLUCOSE - POINT OF CARE Routine 05/25/2024 12:08 PM SUPER[employer]OR [employer]ING GLUCOSE - POINT OF CARE Routine 05/25/2024 11:53 AM SUPER[employer]ING GLUCOSE - POINT OF CARE Routine 05/25/2024 7:51 AM SU[employer]OR [employer]ING GLUCOSE - POINT OF CARE Routine 05/25/2024 5:03 AM SUPER[employer]ING GLUCOSE - POINT OF CARE Routine 05/24/2024 11:05 PM [employer]ING GLUCOSE - POINT OF CARE Routine 05/24/2024 8:55 PM [employer]ING GLUCOSE - POINT OF CARE Routine 05/24/2024 4:24 PM SU[employer]ING GLUCOSE - POINT OF CARE Routine 05/24/2024 12:02 PM SUPER[employer]OR [employer]ING GLUCOSE - POINT OF CARE Routine 05/24/2024 8:28 AM SUPER[employer]OR [employer]ING GLUCOSE - POINT OF CARE Routine 05/24/2024 12:16 AM SU[employer]ING GLUCOSE - POINT OF CARE Routine 05/23/2024 9:56 PM [employer] GLUCOSE - POINT OF CARE Routine 05/23/2024 5:[address] [address] BRAIN STROKE Routine 05/23/2024 12:36 PM [employer] Cerebrovascular accident (CVA), unspecified mechanism (HCC) GLUCOSE - POINT OF CARE Routine 05/23/2024 12:13 PM [employer]ING GLUCOSE - POINT OF CARE Routine 05/23/2024 8:14 AM SU[employer]ING GLUCOSE - POINT OF CARE Routine 05/23/2024 4:22 AM [employer] GLUCOSE - POINT OF CARE Routine 05/22/2024 11:44 PM [employer]ING GLUCOSE - POINT OF CARE Routine 05/22/2024 8:11 PM [employer]ING GLUCOSE - POINT OF CARE Routine 05/22/2024 5:27 PM [employer]ING GLUCOSE - POINT OF CARE Routine 05/22/2024 11:58 AM [employer]ING GLUCOSE - POINT OF CARE Routine 05/22/2024 7:36 AM [employer] CBC W/O DIFFERENTIAL Routine 05/22/2024 5:04 AM [employer] PHOSPHORUS BLOOD Routine 05/22/2024 5:03 AM [employer] MAGNESIUM BLOOD Timed 05/22/2024 5:03 AM [employer]PER[employer]ING BASIC METABOLIC PANEL (CALCIUM TOTAL) Routine 05/22/2024 5:03 AM [employer] GLUCOSE - POINT OF CARE Routine 05/22/2024 5:00 AM [employer]ING GLUCOSE - POINT OF CARE Routine 05/22/2024 12:54 AM [employer] GLUCOSE - POINT OF CARE Routine 05/21/2024 8:24 PM [employer] GLUCOSE - POINT OF CARE Routine 05/21/2024 4:43 PM [employer] GLUCOSE - POINT OF CARE Routine 05/21/2024 12:42 PM [employer]ING GLUCOSE - POINT OF CARE Routine 05/21/2024 11:52 AM [employer]ING GLUCOSE - POINT OF CARE Routine 05/21/2024 8:03 AM [employer] PHOSPHORUS BLOOD Routine 05/21/2024 5:35 AM [employer] MAGNESIUM BLOOD Timed 05/21/2024 5:35 AM [employer] CBC W/O DIFFERENTIAL Routine 05/21/2024 5:35 AM [employer] BASIC METABOLIC PANEL (CALCIUM TOTAL) Routine 05/21/2024 5:35 AM [employer]ING GLUCOSE - POINT OF CARE Routine 05/21/2024 4:59 AM [employer]ING GLUCOSE - POINT OF CARE Routine 05/20/2024 11:49 PM [employer] GLUCOSE - POINT OF CARE Routine 05/20/2024 8:28 PM [employer] GLUCOSE - POINT OF CARE Routine 05/20/2024 4:46 PM [employer] GLUCOSE - POINT OF CARE Routine 05/20/2024 12:14 PM [employer] C-PEPTIDE Routine 05/20/2024 10:17 AM [employer] PHOSPHORUS BLOOD Routine 05/20/2024 10:1 7 AM [employer] MAGNESIUM BLOOD Timed 05/20/2024 10:17 AM [employer] CBC W/O DIFFERENTIAL Routine 05/20/2024 10:17 AM [employer] BASIC METABOLIC PANEL (CALCIUM TOTAL) Routine 05/20/2024 10:17 AM [employer] GLUCOSE - POINT OF CARE Routine 05/20/2024 7:55 AM [employer]ING GLUCOSE - POINT OF CARE Routine 05/20/2024 3:57 AM [employer]ING GLUCOSE - POINT OF CARE Routine 05/20/2024 12:14 AM [employer]ING GLUCOSE - POINT OF CARE Routine 05/19/2024 8:07 PM [employer]ING GLUCOSE - POINT OF CARE Routine 05/19/2024 5:17 PM [employer] GLUCOSE - POINT OF CARE Routine 05/19/2024 11:28 AM [employer] GLUCOSE - POINT OF CARE Routine 05/19/2024 8:09 AM [employer] VITAMIN B12 AM Draw 05/19/2024 5:25 AM [employer] IRON + TRANSFERRIN PANEL Routine 05/19/2024 5:25 AM [employer]ING FOLATE Routine 05/19/2024 5:25 AM [employer] VITAMIN D 25-HYDROXY AM Draw 05/19/2024 5:25 AM [employer] PHOSPHORUS BLOOD Routine 05/19/2024 5:25 AM [employer] MAGNESIUM BLOOD Timed 05/19/2024 5:25 AM [employer] CBC W/O DIFFERENTIAL Routine 05/19/2024 5:25 AM [employer]ING BASIC METABOLIC PANEL (CALCIUM TOTAL) Routine 05/19/2024 5:25 AM [employer] GLUCOSE - POINT OF CARE Routine 05/19/2024 4:27 AM [employer] GLUCOSE - POINT OF CARE Routine 05/19/2024 12:14 AM SU[employer]ING GLUCOSE - POINT OF CARE Routine 05/18/2024 9:18 PM [employer]OR [employer]ING GLUCOSE - POINT OF CARE Routine 05/18/2024 5:48 PM [employer]ING GLUCOSE - POINT OF CARE Routine 05/18/2024 11:23 AM SUPER[employer]OR [employer]ING GLUCOSE - POINT OF CARE Routine 05/18/2024 7:56 AM [employer]PER[employer]ING GLUCOSE - POINT OF CARE Routine 05/18/2024 7:23 AM SUPER[employer]OR [employer]ING PHOSPHORUS BLOOD Routine 05/18/2024 5:35 AM [employer]ING MAGNESIUM BLOOD Timed 05/18/2024 5:35 AM [employer] CBC W/O DIFFERENTIAL Routine 05/18/2024 5:35 AM SUPER[employer]OR [employer]ING BASIC METABOLIC PANEL (CALCIUM TOTAL) Routine 05/18/2024 5:35 AM SUPER[employer]ING GLUCOSE - POINT OF CARE Routine 05/18/2024 4:04 AM [employer]PER[employer]OR [employer]ING GLUCOSE - POINT OF CARE Routine 05/17/2024 11:50 PM SUPER[employer]OR [employer]ING GLUCOSE - POINT OF CARE Routine 05/17/2024 8:48 PM SUPER[employer]OR [employer]ING GLUCOSE - POINT OF CARE Routine 05/17/2024 4:32 PM SUPER[employer]OR [employer]ING GLUCOSE - POINT OF CARE Routine 05/17/2024 12:17 PM SUPERVISOR [employer]ING GLUCOSE - POINT OF CARE Routine 05/17/2024 7:29 AM SUPER[employer]OR [employer]ING GLUCOSE - POINT OF CARE Routine 05/17/2024 4:01 AM [employer]ING PHOSPHORUS BLOOD Routine 05/17/2024 12:2 0 AM [employer]ING MAGNESIUM BLOOD Timed 05/17/2024 12:20 AM [employer]ING CBC W/O DIFFERENTIAL Routine 05/17/2024 12:20 AM SUPER[employer]OR [employer]ING BASIC METABOLIC PANEL (CALCIUM TOTAL) Routine 05/17/2024 12:20 AM SUPER[employer]OR [employer]ING GLUCOSE - POINT OF CARE Routine 05/17/2024 12:18 AM SUPER[employer]OR [employer]ING GLUCOSE - POINT OF CARE Routine 05/16/2024 8:36 PM SUPER[employer]OR [employer]ING GLUCOSE - POINT OF CARE Routine 05/16/2024 4:59 PM SUPER[employer]ING GLUCOSE - POINT OF CARE Routine 05/16/2024 12:28 PM [employer]ING GLUCOSE - POINT OF CARE Routine 05/16/2024 7:58 AM SUPER[employer]ING GLUCOSE - POINT OF CARE Routine 05/16/2024 4:12 AM [employer]ING PHOSPHORUS BLOOD Routine 05/15/2024 11:1 8 PM [employer] MAGNESIUM BLOOD Timed 05/15/2024 11:18 PM [employer] CBC W/O DIFFERENTIAL Routine 05/15/2024 11:18 PM [employer]ING BASIC METABOLIC PANEL (CALCIUM TOTAL) Routine 05/15/2024 11:18 PM [employer]ING GLUCOSE - POINT OF CARE Routine 05/15/2024 8:41 PM [employer]ING GLUCOSE - POINT OF CARE Routine 05/15/2024 4:42 PM [employer]ING BASIC METABOLIC PANEL (CALCIUM TOTAL) AM Draw 05/15/2024 2:29 PM [employer]ING GLUCOSE - POINT OF CARE Routine 05/15/2024 11:17 AM SUPER[employer]OR [employer]ING GLUCOSE - POINT OF CARE Routine 05/15/2024 8:10 AM SUPER[employer]ING GLUCOSE - POINT OF CARE Routine 05/15/2024 3:24 AM SU[employer]ING GLUCOSE - POINT OF CARE Routine 05/14/2024 11:13 PM [employer]PER[employer]ING PHOSPHORUS BLOOD Routine 05/14/2024 11:1 3 PM [employer]ING MAGNESIUM BLOOD Timed 05/14/2024 11:13 PM [employer]PER[employer]ING CBC W/O DIFFERENTIAL Routine 05/14/2024 11:13 PM [employer]PER[employer]OR [employer]ING BASIC METABOLIC PANEL (CALCIUM TOTAL) Routine 05/14/2024 11:13 PM SUPERVISOR [employer]ING GLUCOSE - POINT OF CARE Routine 05/14/2024 8:33 PM SUPER[employer]OR [employer]ING GLUCOSE - POINT OF CARE Routine 05/14/2024 4:12 PM SUPER[employer]OR [employer]ING PHOSPHORUS BLOOD Routine 05/14/2024 11:5 7 AM SUPER[employer]OR [employer]ING MAGNESIUM BLOOD Timed 05/14/2024 11:57 AM [employer]PER[employer]ING CBC W/O DIFFERENTIAL Routine 05/14/2024 11:57 AM SUPER[employer]OR [employer]ING BASIC METABOLIC PANEL (CALCIUM TOTAL) Routine 05/14/2024 11:57 AM SUPERVISOR SHE[employer]ING GLUCOSE - POINT OF CARE Routine 05/14/2024 11:46 AM SUPERVISOR SHE[employer]ING GLUCOSE - POINT OF CARE Routine 05/14/2024 8:32 AM SUPERVISOR [employer]ING GLUCOSE - POINT OF CARE Routine 05/14/2024 4:00 AM SUPERVISOR [employer]ING GLUCOSE - POINT OF CARE Routine 05/13/2024 11:08 PM SUPER[employer]OR [employer]ING PHOSPHORUS BLOOD Routine 05/13/2024 11:0 7 PM [employer]PER[employer]OR [employer]ING MAGNESIUM BLOOD Timed 05/13/2024 11:07 PM [employer]PER[employer]OR [employer]ING CBC W/O DIFFERENTIAL Routine 05/13/2024 11:07 PM SUPERVISOR [employer]ING BASIC METABOLIC PANEL (CALCIUM TOTAL) Routine 05/13/2024 11:07 PM SUPERVISOR SHE[employer]URING GLUCOSE - POINT OF CARE Routine 05/13/2024 8:15 PM SUPERVISOR [employer]URING GLUCOSE - POINT OF CARE Routine 05/13/2024 4:15 PM SUPERVISOR [employer]ING GLUCOSE - POINT OF CARE Routine 05/13/2024 11:56 AM SUPERVISOR [employer]ING PHOSPHORUS BLOOD Routine 05/13/2024 11:5 4 AM SUPER[employer]OR [employer]ING MAGNESIUM BLOOD Timed 05/13/2024 11:54 AM [employer]PER[employer]OR [employer]ING CBC W/O DIFFERENTIAL Routine 05/13/2024 11:54 AM SUPER[employer]OR [employer]ING BASIC METABOLIC PANEL (CALCIUM TOTAL) Routine 05/13/2024 11:54 AM SUPER[employer]OR [employer]ING URINALYSIS REFLEX TO MICROSCOPIC NO CULTURE Routine 05/13/2024 11:27 AM SUPER[employer]ING LACTIC ACID BLOOD STAT 05/13/2024 8:0 5 AM SUPER[employer]OR [employer]ING GLUCOSE - POINT OF CARE Routine 05/13/2024 7:45 AM SUPER[employer]OR [employer]ING GLUCOSE - POINT OF CARE Routine 05/13/2024 4:17 AM SUPER[employer]OR [employer]ING PHOSPHORUS BLOOD Routine 05/13/2024 12:4 0 AM [employer]PER[employer]OR [employer]ING MAGNESIUM BLOOD Timed 05/13/2024 12:40 AM SUPER[employer]OR [employer]ING CBC W/O DIFFERENTIAL Routine 05/13/2024 12:40 AM SUPER[employer]OR [employer]URING BASIC METABOLIC PANEL (CALCIUM TOTAL) Routine 05/13/2024 12:40 AM SUPERVISOR SHE[employer]ING GLUCOSE - POINT OF CARE Routine 05/13/2024 12:37 AM SUPER[employer]OR [employer]ING XR CHEST 1VW PORTABLE STAT 05/12/2024 7:52 PM [employer]ING Other specified hypotension GLUCOSE - POINT OF CARE Routine 05/12/2024 7:46 PM SUPERVISOR [employer]ING GLUCOSE - POINT OF CARE Routine 05/12/2024 4:08 PM SUPERVISOR [employer]ING FL SWALLOWING FUNCTION STUDY Routine 05/12/2024 2:11 PM [employer]PER[employer]ING 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) GLUCOSE - POINT OF CARE Routine 05/12/2024 12:34 PM SUPERVISOR [employer]ING PHOSPHORUS BLOOD Routine 05/12/2024 12:0 5 PM SUPER[employer]OR [employer]ING MAGNESIUM BLOOD Timed 05/12/2024 12:05 PM SUPER[employer]OR [employer]ING CBC W/O DIFFERENTIAL Routine 05/12/2024 12:05 PM SUPERVISOR [employer]ING BASIC METABOLIC PANEL (CALCIUM TOTAL) Routine 05/12/2024 12:05 PM SUPERVISOR SHEET [employer] GLUCOSE - POINT OF CARE Routine 05/12/2024 8:07 AM [employer] GLUCOSE - POINT OF CARE Routine 05/12/2024 4:07 AM [employer] HEMOGLOBIN A1C Add on 05/02/2024 9:09 AM [employer] from Last 3 Months or Most Recently Relevant to Health Maintenance Results * (ABNORMAL) GLUCOSE - POINT OF CARE (06/02/2024 4:32 PM [employer]) Only the most recent of134 resultswithin the time period is included. Glucose WB/POC 249(H) 70 - 99 mg/dL 06/02/2024 4:59 PM [facility] Specimen Type Cap Fingerstick 2023 4:59 PM [facility] Blood BLOOD SPECIMEN / Unknown 06/02/2024 4:32 PM [employer] 06/02/2024 4:59 PM [employer] Elida Capellan MD LAB - POINT OF CARE ORDERABLES [facility] [address] [place] [address], [facility] [phone] * (ABNORMAL) CBC W/O DIFFERENTIAL (05/29/2024 8:44 PM [employer]) Only the most recent of14 resultswithin the time period is included. Pathologist [facility] WBC 8.6 4.0 - 10.7 x10E9/L 05/29/2024 9:21 PM [facility] RBC Count 4.24(L) 4.30 - 5.80 x10E12/L 05/29/2024 9:21 PM [facility] Hemoglobin 13.1(L) 13.3 - 17.5 g/dL 05/29/2024 9:21 PM [facility] Hematocrit 40.0 38.7 - 51.1 % 05/29/2024 9:21 PM [facility] MCV 94.3 80.0 - 98.0 fL 05/29/2024 9:21 PM [facility] MCH 30.9 26.7 - 33.6 pg 05/29/2024 9:21 PM [facility] MCHC 32.8 31.7 - 36.3 g/dL 05/29/2024 9:21 PM [facility] RDW-CV 14.7 11.3 - 14.8 % 05/29/2024 9:21 PM [facility] Platelet Count 177 150 - 420 x10E9/L 05/29/2024 9:21 PM [facility] MPV 12.8(H) 7.8 - 11.4 fL 05/29/2024 9:21 PM [facility] Blood BLOOD SPECIMEN / Unknown Lab Venipuncture / Unknown 05/29/2024 8:44 PM [employer] 05/29/2024 9:15 PM [employer] Oral Nguyen MD LAB - HEMATOLOGY ORDERABLES Performing Organization Address [facility]/ZIP Co de Phone Number [facility] [address] [place] [id number] [phone] * (ABNORMAL) COMPREHENSIVE METABOLIC PANEL (05/29/2024 8:44 PM [employer]) BUN 26 7 - 26 mg/dL 05/29/2024 9:45 PM [facility] Creatinine 0.94 0.71 - 1.16 mg/dL 05/29/2024 9:45 PM [facility] Sodium 140 136 - 145 mmol/L 05/29/2024 9:45 PM [facility] Potassium 4.0 3.5 - 4.5 mmol/L 05/29/2024 9:45 PM [facility] Chloride 103 98 - 107 mmol/L 05/29/2024 9:45 PM [facility] CO2 27 22 - 29 mmol/L 05/29/2024 9:45 PM [facility] Glucose 194(H) 70 - 99 mg/dL 05/29/2024 9:45 PM [facility] Calcium 9.5 8.4 - 10.2 mg/dL 05/29/2024 9:45 PM [facility] Protein Total 6.7 6.0 - 8.3 g/dL 05/29/2024 9:45 PM [facility] Albumin 3.2(L) 3.4 - 5.0 g/dL 05/29/2024 9:45 PM [facility] Bilirubin Total 0.3 0.2 - 1.2 mg/dL 05/29/2024 9:45 PM [facility] Alkaline Phosphatase 72 40 - 150 U/L 05/29/2024 9:45 PM [facility] ALT 32 5 - 55 U/L 05/29/2024 9:45 PM [facility] HOSPITAL AST 17 5 - 34 U/L 05/29/2024 9:45 PM [facility] Anion Gap 10 6 - 16 05/29/2024 9:45 PM [facility] BUN/Creatinine Ratio 28(H) 7 - 23 05/29/2024 9:45 PM [facility] Osmolality Calculated 300(H) 275 - 295 mOsm/kg 05/29/2024 9:45 PM [facility] Albumin/Globulin Ratio 0.9(L) 1.1 - 2.3 05/29/2024 9:45 PM [facility] eGFR by CKD-EPI >90 >=90 mL/min/1.7 3 m2 05/29/2024 9:45 PM [facility] Blood BLOOD SPECIMEN / Unknown Lab Venipuncture / Unknown 05/29/2024 8:44 PM [employer] 05/29/2024 9:15 PM [employer] Oral Nguyen MD LAB - CHEMISTRY O RDRACHEL [address] [address], [facility] [phone] * PHOSPHORUS BLOOD (05/29/2024 8:44 PM [employer]) Only the most recent of14 resultswithin the time period is included. Phosphorus 4.1 2.8 - 5.1 mg/dL 05/29/2024 9:45 PM [facility] Blood BLOOD SPECIMEN / Unknown Lab Venipuncture / Unknown 05/29/2024 8:44 PM [employer] 05/29/2024 9:15 PM [employer] Oral Nguyen MD LAB - CHEMISTRY O RDERAPRERNA [address] [address], [facility] [phone] * MAGNESIUM BLOOD (05/29/2024 8:44 PM [employer]) Only the most recent of14 resultswithin the time period is included. Magnesium 2.4 1.6 - 2.6 mg/dL 05/29/2024 9:45 PM [employer] [facility] Blood BLOOD SPECIMEN / Unknown Lab Venipuncture / Unknown 05/29/2024 8:44 PM [employer] 05/29/2024 9:15 PM [employer] Oral Nguyen MD LAB - CHEMISTRY O RDERABLES [facility] [address] [place] [address], [facility] [phone] * CT Brain Stroke (05/23/2024 12:36 PM [employer]) Anatomical Region Laterality Modality Head Computed Tomogra phy 05/23/2024 12:3 3 PM [employer] Impressions 05/23/2024 12:43 PM [employer] IMPRESSION: 1. No acute intracranial hemorrhage. 2. [...] 05/23/2024 12:43 PM Narrative 05/23/2024 12:43 PM [employer] PROCEDURE: CT BRAIN STROKE, DATE/TIME OF EXAM: 05/23/2024 12:36 PM, LOCATION [facility] INDICATION: I63.9: Cerebrovascular accident (CVA), unspecified [...] DATE/TIME OF EXAM: 05/23/2024 12:36 PM, LOCATION [facility] INDICATION: I63.9: Cerebrovascular accident (CVA), unspecified [...] METABOLIC PANEL (CALCIUM TOTAL) (05/22/2024 5:03 AM [facility]) Only the most recent of14 resultswithin the time period is included. BUN 23 7 - 26 mg/dL 05/22/2024 7:15 AM [facility] Creatinine 1.02 0.71 - 1.16 mg/dL 05/22/2024 7:15 AM [facility] Sodium 143 136 - 145 mmol/L 05/22/2024 7:15 AM [facility] Potassium 4.3 3.5 - 4.5 mmol/L 05/22/2024 7:15 AM [facility] Chloride 104 98 - 107 mmol/L 05/22/2024 7:15 AM [facility] CO2 29 22 - 29 mmol/L 05/22/2024 7:15 AM [facility] Glucose 91 70 - 99 mg/dL 05/22/2024 7:15 AM [facility] Calcium 9.9 8.4 - 10.2 mg/dL 05/22/2024 7:15 AM [facility] Anion Gap 10 6 - 16 05/22/2024 7:15 AM [facility] BUN/Creatinine Ratio 23 7 - 23 05/22/2024 7:15 AM [facility] Osmolality Calculated 299(H) 275 - 295 mOsm/kg 05/22/2024 7:15 AM [facility] eGFR by CKD-EPI 84(L) >=90 mL/min/1.7 3 m2 05/22/2024 7:15 AM [facility] Blood BLOOD SPECIMEN / Unknown Lab Venipuncture / Unknown 05/22/2024 5:03 AM [employer] 05/22/2024 6:48 AM [facility] Patel Carroll MD LAB - CHEMISTRY ORD ERABLES [facility] [address] [place] [address], [facility] [phone] * (ABNORMAL) C-PEPTIDE (05/20/2024 10:17 AM [employer]) C-Peptide 4.0(H) 0.5 - 3.3 ng/mL 05/25/2024 9:33 PM [employer] [facility] ([facility]) Comment: INTERPRETIVE INFORMATION: Serum, C-Peptide Reference Interval applies to fasting specimens. To convert to nmol/L, multiply by 0.33 Performed By: [email or web address] [address] [id number] Finish Repair Worker: Red Corbin MD, PhD CLIA Number: [id number] Blood BLOOD SPECIMEN / Unknown Lab Venipuncture / Unknown 05/20/2024 10:17 AM [employer] 05/20/2024 10:49 AM [employer] Marium Monterrosodorothy SANCHEZ LAB - CHEMISTRY ORDE LEILANIANTWON Performing Organization Address City/[facility]/ZIP Co de Phone Number [facility]) [address] [id number] * (ABNORMAL) VITAMIN D 25-HYDROXY (05/19/2024 5:25 AM [employer]) Pathologist [facility] Vitamin D, 25 Hydroxy 28.4(L) 30.0 - 80.0 ng/mL 05/19/2024 7:38 AM [employer] [facility] Comment: The recommendations for 25-Hydroxy Vitamin D [...] Lab Venipuncture / Unknown 05/19/2024 5:25 AM [employer] 05/19/2024 6:32 AM [employer] Marium Monterrosojoseluismadeline DO LAB - CHEMISTRY ORDE LEILANIANTWON [address] [address], [facility] [phone] * FOLATE (05/19/2024 5:25 AM [employer]) Folate 14.8 7.0 - 31.4 ng/mL 05/19/2024 7:38 AM [employer] [facility] Blood BLOOD SPECIMEN / Unknown Lab Venipuncture / Unknown 05/19/2024 5:25 AM [employer] 05/19/2024 6:32 AM [employer] Marium Maria DO LAB - CHEMISTRY ORDE MARIANNA [address] [address], [facility] [phone] * VITAMIN B12 (05/19/2024 5:25 AM [employer]) Vitamin B12 627 213 - 816 pg/mL 05/19/2024 7:38 AM [facility] Blood BLOOD SPECIMEN / Unknown Lab Venipuncture / Unknown 05/19/2024 5:25 AM [employer] 05/19/2024 6:32 AM [employer] Marium Maria DO LAB - CHEMISTRY ORDE LEILANIANTWON Performing Organization Address City/[facility]/ZIP Co de Phone Number [address] [address], [facility] [phone] * (ABNORMAL) IRON + TRANSFERRIN PANEL (05/19/2024 5:25 AM [employer]) Iron 48(L) 50 - 175 ug/dL 05/19/2024 7:09 AM [facility] Transferrin 198 174 - 382 mg/dL 05/19/2024 7:09 AM [facility] Transferrin Saturation % 19 16 - 50 % 05/19/2024 7:09 AM [facility] TIBC Calculated 248 240 - 450 ug/dL 05/19/2024 7:09 AM [facility] Blood BLOOD SPECIMEN / Unknown Lab Venipuncture / Unknown 05/19/2024 5:25 AM [employer] 05/19/2024 6:54 AM [employer] Marium Maria DO LAB - CHEMISTRY ORDE MARIANNA [facility] [address] [place] [address], [facility] [phone] * (ABNORMAL) URINALYSIS REFLEX TO MICROSCOPIC NO CULTURE (05/13/2024 11:27 AM [employer]) Color UA Yellow Straw, Yellow 05/13/2024 11:58 AM [facility] Clarity UA Clear Clear 05/13/2024 11:58 AM [facility] Specific [place] UA 1.010 1.005 - 1.030 05/13/2024 11:58 AM [facility] pH UA 7.0 5.0 - 8.0 pH 05/13/2024 11:58 AM [facility] Protein UA Negative Negative 05/13/2024 11:58 AM [facility] Glucose UA 3+(A) Negative 05/13/2024 11:58 AM [facility] Ketone UA Negative Negative 05/13/2024 11:58 AM [facility] Bilirubin UA Negative Negative 05/13/2024 11:58 AM [facility] Blood UA Negative Negative 05/13/2024 11:58 AM [facility] Nitrite UA Negative Negative 05/13/2024 11:58 AM [facility] Leukocyte Esterase Negative Negative 05/13/2024 11:58 AM [facility] Urobilinogen UA Negative Negative mg/dL 05/13/2024 11:58 AM [facility] RBC UA 3-5 None Seen, 0-2, 3-5 /HPF 05/13/2024 11:58 AM [facility] WBC UA 0-5 None Seen, 0-5 /HPF 05/13/2024 11:58 AM [facility] Squamous Epithelial Cells UA None Seen None Seen, 0-2, 3-5 /HPF 05/13/2024 11:58 AM [facility] Urine URINE SPECIMEN OBTAINED BY SINGLE CATHETERIZATION OF URINARY BLADDER / Unknown Collection / Unknown 05/13/2024 11:27 AM [employer] 05/13/2024 11:36 AM [facility] - 05/13/2024 11:58 AM [employer] Sumanth Chacon [employer]IG[employer] MAKING SUPERVISOR-CHEMIST HELPER LAB - URINALYSIS O RDERABLES Performing Organization Address City/[facility]/ZIP Co de Phone Number [facility] [address] [place] [address], [facility] [phone] * LACTIC ACID BLOOD (05/13/2024 8:05 AM [employer]) Lactic Acid-Stat 1.0 <=2.0 mmol/L 05/13/2024 8:45 AM [employer] [facility] Blood BLOOD SPECIMEN / Unknown Venipuncture / Unknown 05/13/2024 8:05 AM [employer] 05/13/2024 8:13 AM [employer] Sonu Lemus MD LAB - CHEMISTRY ORDE MARIANNA Performing Organization Address [facility]/ZIP Co de Phone Number [address] [address], [facility] [phone] * XR Chest 1Vw Portable (05/12/2024 7:52 PM [employer]) Anatomical Region Laterality Modality Chest Digital Radiogra phy 05/13/2024 7:39 AM [employer] Impressions 05/13/2024 3:40 PM [employer] IMPRESSION: Mild amount of left medial basilar infiltrate and atelectasis. Report dictated by Summer Davidson MD, (Night Worker). I, David Fitch MD have personally reviewed and interpreted this examination/study. > Interpreting Provider: David Fitch MD on 05/13/2024 3:40 PM Narrative 05/13/2024 3:40 PM [employer] PROCEDURE: XR CHEST 1VW PORTABLE DATE/TIME OF [...] andatelectasis. Report dictated by Summer Davidson MD, (Night Worker). I, David Fitch MD have personally reviewed and interpreted this examination/study. > Interpreting Provider: David Fitch MD on 05/13/2024 3:40 PM Sonu Lemus MD DIAGNOSTIC IMAGING O RDERABLES * FL SWALLOWING FUNCTION STUDY (05/12/2024 2:11 PM [employer]) Anatomical Region Laterality Modality Chest Digital Radiogra phy 05/12/2024 2:35 PM [employer] Narrative 05/12/2024 6:40 PM [employer] PROCEDURE: FL SWALLOWING FUNCTION STUDY DATE/TIME OF [...] * (ABNORMAL) HEMOGLOBIN A1C (05/02/2024 9:09 AM [employer]) Hemoglobin A1c 8.5(H) <=5.6 % 05/02/2024 2:42 PM [facility] Estimated Average Glucose 197 mg/dL 05/02/2024 2:42 PM [facility] Comment: HbA1c Interpretation: Normal : < 5.7% Pre-diabetes: 5.7-6.4% Diabetes: Equal to or greater than 6.5% Test results diagnostic of diabetes should be repeated for confirmation. Treatment target values recommended by ADA and other clinical organizations should be used to evaluate metabolic control in patients. Reference: [place] [employer], Standards of Care in Diabetes -2020 In patients 70 years and older consider HbA1c target range of 7.0-7.5% (Reference: Rico Mercedes et fabienne. JAMDA. 2012) The Sebia assay for the measurement of HbA1c is a National Glycohemoglobin Standardization Program (NGSP) certified method. Blood BLOOD SPECIMEN / Unknown Venipuncture / Unknown 05/02/2024 9:09 AM [employer] 05/02/2024 9:20 AM [employer] Martín Daly DO LAB - CHEMISTRY GHAZALA CABRAL Performing Organization Address City/State/[place] Co de Phone Number [facility] [address] [place] [address], [facility] [phone] from Last 3 Months or Most Recently Relevant to Health Maintenance Advance Directives * Full Code (Latest Code Status on File) Date Activated Date Inactivated Comments 04/28/2024 10:02 AM 06/02/2024 9:04 PM Care Teams Ob/Gyn Relationship Specialty [place] [address] [facility] [address] [place] [address] PCP - General Internal Medicine 04/28/24
--- OUTSIDE RECORDS SUMMARY | 2024-08-12 08:29 | XMS_ITS | Encounter Summary ---
Author Organization [employer] Address [address] [place] [address] Care Team Providers Care Cardiac Rehabilitation Program Director Name Role Phone Franck Garcia MD Primary Care Provider Encounter Details Date Type Department Care Team (Latest Contact Info) Description 07/25/2008 Outpatient Historical [facility] Hemal Scottysisi Malignant Neoplasm of Head, Face, and Neck (CMS/HCC) Social History Tobacco Use Types Packs/Day Years Used Date Smoking Tobacco: Never Assessed Sex and Gender Information Value Date Recorded Sex Assigned at Not on file Legal Sex Male 5:32 AM [employer] Gender Identity Not on file Sexual Orientation Not on file documented as of this encounter Plan of Treatment Not on file documented as of this encounter Procedures Procedure Name Priority Date/Time Associated Diagnosis Comments CT CHEST W CONTRAST Routine 07/25/2008 8 :[address] SOFT TISSUE NECK W CONTRAST Routine 07/25/2008 8:35 AM [employer] documented in this encounter Results * CT CHEST W CONTRAST (07/25/2008 8:35 AM [employer]) Anatomical Region Laterality Modality Chest Other 07/25/2008 8:35 AM [employer] Narrative 07/25/2008 6:40 PM [employer] [facility] [address] [place], [place] [address] Admit Date: 07/25/2008 FRANCK LOUISE Sex: M Admit Prov: EVER RECIO Date: 1965 Primary Care Prov: CMRN: [id number] Room: [facility] SSN: [id number] IMAGING SERVICES Ordering Prov: N/A Accession Number: [id number] Interpretation CT OF THE CHEST WITH INTRAVENOUS CONTRAST 07/25/08 Clinical History: History of head and neck carcinoma. Technique: Spiral volumetric acquisition of the chest was performed following intravenous contrast. Findings: No mediastinal, hilar, or axillary adenopathy is seen. No pericardial or pleural effusions are evident. Lung parenchymal windows demonstrate minimal infiltrate and atelectasis within the right middle lobe. A 3 mm calcified nodule is noted within the posterior right lower lobe. No other pulmonary nodules are seen. No focal consolidation is evident. The airway is patent. The visualized upper abdomen is unremarkable. IMPRESSION: Mild infiltrate, atelectasis, or scarring within the medial right middle lobe. 3 mm calcified nodule within the left lower lobe consistent with old granulomatous disease. . Report revised on 07/25/2008 2:41:01 PM by ROSELINE DIEGO Dictated by: ROSELINE DIEGO 07/25/2008 09:15 Electronically signed by: ROSELINE DIEGO07/25/2008 14:41 Transcribed: 07/25/2008 14:32 AMK Procedure Note Roseline Diego MD - 07/25/[address] [address] Admit Date: 07/25/2008 FRANCK LOUISE Sex: M Admit Prov: EVER RECIO Date: 1965 Primary Care Prov: CMRN: [id number] Room: [facility] SSN: [id number] IMAGING SERVICES Ordering Prov: N/A Interpretation CT OF THE CHEST WITH INTRAVENOUS CONTRAST 07/25/08 Clinical History: History of head and neck carcinoma. Technique: Spiral volumetric acquisition of the chest was performed following intravenous contrast. Findings: No mediastinal, hilar, or axillary adenopathy is seen. No pericardialor pleural effusions are evident. Lung parenchymal windows demonstrate minimal infiltrate andatelectasis within the right middle lobe. A 3 mm calcified nodule is noted withinthe posterior right lower lobe. No other pulmonary nodules are seen. Nofocal consolidation is evident. The airway is patent. The visualizedupper abdomen is unremarkable. IMPRESSION: Mild infiltrate, atelectasis, or scarring within the medial rightmiddle lobe. 3 mm calcified nodule within the left lower lobe consistent withold granulomatous disease. . Report revised on 07/25/2008 2:41:01 PM by YOANDY DIEGO Dictated by: ROSELINE DIEGO 07/25/2008 09:15 Electronically signed by: ROSELINE DIEGO07/25/2008 14:41 Transcribed: 07/25/2008 14:[address] ORDERABLES Edited * CT SOFT TISSUE NECK W CONTRAST (07/25/2008 8:35 AM [employer]) Anatomical Region Laterality Modality Neck Other 07/25/2008 8:35 AM [employer] Narrative 07/25/2008 2:42 PM [employer] [facility] [address] [place], [place] [address] Admit Date: 07/25/2008 FRANCK LOUISE Sex: M Admit Prov: EVER RECIO Date: 1965 Primary Care Prov: CMRN: [id number] Room: [facility] SSN: [id number] IMAGING SERVICES Ordering Prov: N/A Accession Number: [id number] Interpretation SOFT TISSUE NECK CT WITH IV CONTRAST, 07/25/2008 History: Malignant head neck cancer, followup Comparison: 01/18/2008 After IV contrast, imaging from the thoracic inlet through the skullbase was performed. The nasopharynx, oropharynx status post left tonsillectomy, oral cavity, parotid glands, right submandibular gland and glottis appear unchanged. The left internal jugular vein and submandibular gland are surgically absent. The supraglottic and glottic edema as well subcutaneous fat stranding suggest prior radiation therapy. IMPRESSION: No new pathologic adenopathy or asymmetry seen. Post-treatment changes. . Dictated by: LINDSEY JAMIL 07/25/2008 11:03 Electronically signed by: LINDSEY JAMIL 07/25/2008 14:41 Transcribed: 07/25/2008 11:45 Procedure Note Lindsey Jamil - 07/25/2008 [facility] [address] [place], [place] [address] Admit Date: 07/25/2008 FRANCK LOUISE Sex: M Admit Prov: HEMALSCOTTYSISI ADRIANNE Date: 1965 Primary Care Prov: CMRN: [id number] Room: [facility] SSN: [id number] IMAGING SERVICES Ordering Prov: N/A Interpretation SOFT TISSUE NECK CT WITH IV CONTRAST, 07/25/2008 History: Malignant head neck cancer, followup Comparison: 01/18/2008 After IV contrast, imaging from the thoracic inlet through theskullbase was performed. The nasopharynx, oropharynx status post lefttonsillectomy, oral cavity, parotid glands, right submandibular gland and glottisappear unchanged. The left internal jugular vein and submandibular glandare surgically absent. The supraglottic and glottic edema as wellsubcutaneous fat stranding suggest prior radiation therapy. IMPRESSION: No new pathologic adenopathy or asymmetry seen. Post-treatment changes. . Dictated by: LINDSEY JAMIL 07/25/2008 11:03 Electronically signed by: LINDSEY JAMIL 07/25/2008 14:41 Transcribed: 07/25/2008 11:[address] ORDERABLES Final Result documented in this encounter Visit Diagnoses Diagnosis Malignant neoplasm of head, face, and neck (CMS/HCC) Malignant neoplasm of head, face, and neck documented in this encounter Care Teams Cardiac Rehabilitation Program Director Relationship Specialty [place] [address] [place] [address] PCP - General 04/25/09 documented as of this encounter
--- OUTSIDE RECORDS SUMMARY | 2024-08-12 08:29 | XMS_ITS | Encounter Summary ---
Author Organization [employer] Address 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[employer] Gender Identity Not on file Sexual Orientation Not on file documented as of this encounter Plan of Treatment Not on file documented as of this encounter Procedures Procedure Name Priority Date/Time Associated Diagnosis Comments CBC WITH DIFFERENTIAL Routine 11/22/2007 5:50 AM CDT BASIC METABOLIC PANEL Routine 11/22/2007 5:50 AM CDT XR CHEST PA AND LATERAL 2 VW Timed Study 11/21/2007 10:56 AM CDT BLOOD CULTURE Timed Study 11/21/2007 4:00 AM CDT CBC WITH DIFFERENTIAL Routine 11/21/2007 3:45 AM CDT C-PEPTIDE Stat 11/21/2007 3:45 AM CDT BLOOD CULTURE Stat 11/21/2007 3:45 AM CDT URINALYSIS WITH REFLEX CULTURE Timed Study 11/20/2007 11:00 PM CDT URINALYSIS W/REFLEX MICROSCOPIC Timed Study 11/20/2007 11:00 PM CDT CBC WITH DIFFERENTIAL Routine 11/20/2007 4:58 AM CDT COMPREHENSIVE METABOLIC PANEL Routine 11/20/2007 4:58 AM CDT BLOOD BANK DRAW ONLY Routine 11/18/2007 1:33 PM CDT CBC WITH DIFFERENTIAL Timed Study 11/18/2007 11:55 AM CDT CBC WITH DIFFERENTIAL Routine 11/18/2007 8:17 AM CDT COMPREHENSIVE METABOLIC PANEL Routine 11/18/2007 8:17 AM CDT PRODUCT PLATELETS Routine 11/18/2007 7:5 3 AM CDT BASIC METABOLIC PANEL Timed Study 11/17/2007 1:13 PM CDT XR CHEST PA OR AP 1 VW Routine 11/16/2007 6:42 PM CDT CBC WITH DIFFERENTIAL Stat 11/16/2007 4:49 PM CDT BLOOD CULTURE Stat 11/16/2007 4:49 PM CDT BLOOD CULTURE Stat 11/16/2007 4:49 PM CDT URINALYSIS WITH MICROSCOPIC Stat 11/16/2007 4:49 PM CDT URINE CULTURE Stat 11/16/2007 4:49 PM CDT C-REACTIVE PROTEIN Stat 11/16/2007 4: 49 PM CDT COMPREHENSIVE METABOLIC PANEL Stat 11/16/2007 4:49 PM CDT ED HOLD Stat 11/16/2007 4:32 PM CDT documented in this encounter Results * BASIC METABOLIC PANEL (11/22/2007 5:50 AM CDT) GLUCOSE 93 65 - 99 mg/dL [facility] SODIUM 143 135 - 145 mmol/L [facility] CALCIUM 8.5 8.4 - 10.2 mg/dL [facility] CO2 29 22 - 30 mmol/L [facility] CREATININE 0.69 0.67 - 1.17 mg/dL [facility] POTASSIUM 3.7 3.5 - 4.9 mmol/L [facility] BUN 6 6 - 20 mg/dL [facility] CHLORIDE 108 96 - 108 mmol/L [facility] GFR, >60 >=60 mL/min/1.7 sq meter [facility] GFR >60 >=60 mL/min/1.7 sq meter [facility] Comment: Modification of Diet in Renal Disease (MDRD) study formula. Estimated GFR rate interpretative information for both Americans and non- Americans is available on the [facility] Intranet at: [email or web address] Select: Lab Policies and Procedures Select: Reference Ranges - GFR Blood specimen (specimen) 11/22/2007 5:50 AM CDT 11/22/2007 6:56 AM CDT Stuart Osborne MD CHEMISTRY ORDERABLES Edited [facility] CLIA# [id number] [address] [facility] [address] [place], [place] [address] * (ABNORMAL) CBC WITH DIFFERENTIAL (11/22/2007 5:50 AM CDT) WBC 2.3(AA) 4.0 - 9.8 K/uL [facility] Comment: Persistent abnormal result MCH 30.8 27.2 - 32.6 pg [facility] MPV 10.1 9.3 - 12.4 fL [facility] HEMATOCRIT 27.1(L) 40.0 - 48.0 % [facility] RDW-STDEV 50.7(H) 37.1 - 48.7 fL [facility] RBC 2.92(L) 4.50 - 5.40 M/uL [facility] MCHC 33.2 31.5 - 35.5 % [facility] MCV 92.8 82.0 - 99.0 fL [facility] PLATELETS 93(L) 140 - 350 K/uL [facility] Comment: Persistent abnormal result HEMOGLOBIN 9.0(L) 13.6 - 16.5 g/dL [facility] RDW 15.4(H) 11.5 - 14.5 % [facility] METAMYELOCYTE 1(H) <=0 % [facility] BANDS 12(H) 0 - 5 % [facility] POIKILOCYTES Slight [facility] BASOPHILS ABSOLUTE 0.05 0.00 - 0.20 K/uL [facility] EOSINOPHILS 1 0 - 7 % [facility] REVIEWED ON SMEAR Plt OK by Smear Rev. [facility] PLATELET EST. Consistent w/ count Normal [facility] MONOCYTE ABSOLUTE 0.14 0.10 - 1.30 K/uL [facility] LYMPHOCYTES 17 16 - 45 % [facility] POLYCHROMASIA Slight [facility] MYELOCYTES 1(H) <=0 % [facility] NEUTROPHIL ABSOLUTE 1.61(L) 1.90 - 7.00 K/uL [facility] NEUTROPHILS, SEG 58 45 - 70 % [facility] ANISOCYTOSIS Slight [facility] BASOPHILS 2 0 - 2 % [facility] EOSINOPHIL ABSOLUTE 0.02 0.00 - 0.70 K/uL [facility] ATYPICAL LYMPHOCYTE 2 0 - 5 % [facility] MONOCYTES 6 3 - 13 % [facility] TOXIC GRANULATION Slight [facility] LYMPHOCYTE ABSOLUTE 0.44(L) 0.70 - 4.50 K/uL [facility] Blood specimen (specimen) 11/22/2007 5:50 AM CDT 11/22/2007 6:56 AM CDT Stuart Osborne MD HEMATOLOGY ORDERABLES Edited [facility] CLIA# [id number] [address] [place] [address] * XR CHEST PA AND LATERAL (11/21/2007 10:56 AM CDT) Anatomical Region Laterality Modality Chest Other 11/21/2007 10:5 6 AM CDT Narrative 11/21/2007 11:49 AM CDT [facility] [address] [place], [place] [address] Admit Date: 11/16/2007 FRANCK LOUISE Sex: M Admit Prov: YE CORNELIUS Date: 1965 Primary Care Prov: CMRN: [id number] Room: [address] [place] [address] [id number]: [id number] IMAGING SERVICES Ordering Prov: N/A Accession Number: [id number] Interpretation CHEST 2 VIEWS, 11/21/2007 Comparison: 11/16/2007 History: Fever, hypotension. Findings: PA and lateral views of the chest demonstrate minor blunting posteriorly at both costophrenic angles suggestive of a small component of pleural effusion. However, no focal air space infiltrate, pneumothorax, mediastinal or bony abnormality is seen. The lung fernandez are unchanged compared with 2006. Impression: Very small bilateral pleural effusions. . Dictated by: LINDSEY JAMIL 11/21/2007 11:03 Electronically signed by: LINDSEY JAMIL 11/21/2007 11:49 Transcribed: 11/21/2007 11:10 SJ Procedure Note Lindsey Jamil - 11/21/2007 [facility] [address] [place], [place] [address] Admit Date: 11/16/2007 KIERADEMETRIFRANCK Sex: M Admit Prov: YE CORNELIUS Date: 1965 Primary Care Prov: CMRN: [id number] Room: [address] [place] [address] SSN: [id number] IMAGING SERVICES Ordering Prov: N/A Interpretation CHEST 2 VIEWS, 11/21/2007 Comparison: 11/16/2007 History: Fever, hypotension. Findings: PA and lateral views of the chest demonstrate minorblunting posteriorly at both costophrenic angles suggestive of a smallcomponent of pleural effusion. However, no focal air space infiltrate,pneumothorax, mediastinal or bony abnormality is seen. The lung fernandez areunchanged compared with 2006. Impression: Very small bilateral pleural effusions. . Dictated by: LINDSEY JAMIL 11/21/2007 11:03 Electronically signed by: LINDSEY JAMIL 11/21/2007 11:49 Transcribed: 11/21/2007 11:10 SJ us Stuart Osborne MD DIAGNOSTIC IMAGING ORDERABLES F inal Result * BLOOD CULTURE (11/21/2007 4:00 AM CDT) PRELIMINARY REPORT No growth to date. Culture in progress [facility] FINAL REPORT No growth 5 days [facility] Blood specimen (specimen) 11/21/2007 4:00 AM CDT 11/21/2007 7:15 AM CDT Stuart Osborne MD MICROBIOLOGY - GENERAL ORDERABL ES Final Result [facility] CLIA# [id number] [address] [place], [place] [address] * (ABNORMAL) CBC WITH DIFFERENTIAL (11/21/2007 3:45 AM CDT) MCV 91.3 82.0 - 99.0 fL [facility] PLATELETS 81(L) 140 - 350 K/uL [facility] Comment: Persistent abnormal result HEMOGLOBIN 9.5(L) 13.6 - 16.5 g/dL [facility] RDW 14.8(H) 11.5 - 14.5 % [facility] WBC 1.8(AA) 4.0 - 9.8 K/uL [facility] Comment: Persistent abnormal result MCH 30.5 27.2 - 32.6 pg [facility] MPV 10.2 9.3 - 12.4 fL [facility] HEMATOCRIT 28.4(L) 40.0 - 48.0 % [facility] RDW-STDEV 47.8 37.1 - 48.7 fL [facility] RBC 3.11(L) 4.50 - 5.40 M/uL [facility] MCHC 33.5 31.5 - 35.5 % [facility] BASOPHILIC STIPPLING Slight [facility] LYMPHOCYTE ABSOLUTE 0.29(L) 0.70 - 4.50 K/uL [facility] METAMYELOCYTE 1(H) <=0 % [facility] BANDS 18(H) 0 - 5 % [facility] REVIEWED ON SMEAR Plt OK by Smear Rev. [facility] POIKILOCYTES Slight [facility] BASOPHILS ABSOLUTE 0.04 0.00 - 0.20 K/uL [facility] EOSINOPHILS 3 0 - 7 % [facility] TOXIC GRANULATION Slight [facility] PLATELET EST. Consistent w/ count Normal [facility] MONOCYTE ABSOLUTE 0.20 0.10 - 1.30 K/uL [facility] LYMPHOCYTES 15(L) 16 - 45 % [facility] POLYCHROMASIA Slight [facility] MYELOCYTES 1(H) <=0 % [facility] NEUTROPHIL ABSOLUTE 1.19(L) 1.90 - 7.00 K/uL [facility] NEUTROPHILS, SEG 48 45 - 70 % [facility] ANISOCYTOSIS Slight [facility] BASOPHILS 2 0 - 2 % [facility] DOHLE BODIES Present [facility] EOSINOPHIL ABSOLUTE 0.05 0.00 - 0.70 K/uL [facility] ATYPICAL LYMPHOCYTE 1 0 - 5 % [facility] MONOCYTES 11 3 - 13 % [facility] Blood specimen (specimen) 11/21/2007 3:45 AM CDT 11/21/2007 4:06 AM CDT Hsiaoou Hu HEMATOLOGY ORDERABLES Edited [facility] CLIA# [id number] [address] [place] [address] * (ABNORMAL) C-PEPTIDE (11/21/2007 3:45 AM CDT) C-PEPTIDE 5.0(H) 0.8 - 3.1 ng/mL [facility] Comment: Lab test performed by: [employer] [address] [address] [place] [address] ERIK STUART MD Blood specimen (specimen) 11/21/2007 3:45 AM CDT 11/21/2007 4:06 AM CDT Stuart Osborne MD CHEMISTRY ORDERABLES Final Resu lt Performing Organization Address [facility] Co de Phone Number [facility] CLIA# [id number] [address] [facility] [place] [address] * BLOOD CULTURE (11/21/2007 3:45 AM CDT) REPORT/SPECIMEN COMMENT Specimen processed with suboptimal blood volume collected. Recommended adult blood volume is 8-10mL per bottle. [facility] PRELIMINARY REPORT No growth to date. Culture in progress [facility] FINAL REPORT No growth 5 days [facility] Blood specimen (specimen) 11/21/2007 3:45 AM CDT 11/21/2007 7:15 AM CDT Stuart Osborne MD MICROBIOLOGY - GENERAL ORDERABL ES Final Result Performing Organization Address [facility] Co de Phone Number [facility] CLIA# [id number] [address] [facility] [address] * URINALYSIS (11/20/2007 11:00 PM CDT) COLOR UA Pale Yellow [facility] NITRITE UA Negative Negative [facility] UROBILINOGEN UA <1 <=1 mg/dL [facility] PH UA 7.0 5.0 - 8.0 [facility] KETONES UA Negative Negative [facility] CLARITY UA Clear Clear [facility] BILIRUBIN UA Negative Negative [facility] PROTEIN UA Negative Negative [facility] LEUKOCYTE ESTERASE UA Negative Negative [facility] SPECIFIC GRAVITY UA 1.004 1.001 - 1.035 [facility] GLUCOSE UA Negative Negative [facility] BLOOD UA Negative Negative [facility] WBC UA 1 0 - 3 /HPF [facility] RBC UA 1 0 - 3 /HPF [facility] 11/20/2007 11:0 0 PM CDT 11/21/2007 1:43 AM CDT Stuart Osborne MD URINE ORDERABLES Edited Performing Organization Address [facility] Co de Phone Number [facility] CLIA# [id number] [address] [place] [address] * URINALYSIS WITH REFLEX CULTURE (11/20/2007 11:00 PM CDT) Pathologist [facility] URINE CULTURE ORDER Not indicated [facility] Comment: Criteria for a reflex culture include one or more of the following: Abnormal nitrite, leukocyte esterase, WBCs or RBCs. Lack of qualifying criteria does not exclude the possiblity of a urinary tract infection. Dilute urine, drug interference, etc. may decrease the sensitivity of the criteria analytes. Urine specimen (specimen) 11/20/2007 11:00 PM CDT 11/21/2007 1:43 AM CDT Stuart Osborne MD URINE ORDERABLES Final Result Performing Organization Address [facility] Co de Phone Number [facility] CLIA# [id number] [address] [place] [address] * (ABNORMAL) COMPREHENSIVE METABOLIC PANEL (11/20/2007 4:58 AM CDT) ALKALINE PHOSPHATASE 105 40 - 129 U/L [facility] BILIRUBIN TOTAL 0.3 0.2 - 1.0 mg/dL [facility] CO2 28 22 - 30 mmol/L [facility] TOTAL PROTEIN 6.0(L) 6.3 - 8.6 g/dL [facility] POTASSIUM 3.0(L) 3.5 - 4.9 mmol/L [facility] GLUCOSE 169(H) 65 - 99 mg/dL [facility] AST 12 12 - 38 U/L [facility] BUN 9 6 - 20 mg/dL [facility] CALCIUM 7.8(L) 8.4 - 10.2 mg/dL [facility] CHLORIDE 96 96 - 108 mmol/L [facility] ALBUMIN 3.2(L) 3.4 - 4.8 g/dL [facility] CREATININE 0.71 0.67 - 1.17 mg/dL [facility] SODIUM 135 135 - 145 mmol/L [facility] ALT 13 0 - 41 U/L [facility] GFR, >60 >=60 mL/min/1. 7 sq meter [facility] GFR >60 >=60 mL/min/1. 7 sq meter [facility] Comment: Modification of Diet in Renal Disease (MDRD) study formula. Estimated GFR rate interpretative information for both Americans and non- Americans is available on the [facility] Intranet at: [email or web address] Select: Lab Policies and Procedures Select: Reference Ranges - GFR Blood specimen (specimen) 11/20/2007 4:58 AM CDT 11/20/2007 5:41 AM CDT Hsiaoou Hu CHEMISTRY ORDERABLES Edited [facility] CLIA# [id number] [address] [place] [address] * (ABNORMAL) CBC WITH DIFFERENTIAL (11/20/2007 4:58 AM CDT) MPV 10.2 9.3 - 12.4 fL [facility] HEMATOCRIT 29.2(L) 40.0 - 48.0 % [facility] RDW-STDEV 48.3 37.1 - 48.7 fL [facility] RBC 3.19(L) 4.50 - 5.40 M/uL [facility] MCHC 33.6 31.5 - 35.5 % [facility] PLATELETS 81(L) 140 - 350 K/uL [facility] MCV 91.5 82.0 - 99.0 fL [facility] HEMOGLOBIN 9.8(L) 13.6 - 16.5 g/dL [facility] RDW 14.7(H) 11.5 - 14.5 % [facility] WBC 1.2(AA) 4.0 - 9.8 K/uL [facility] Comment: Verified by repeat analysis. Attempt made to phone results. 11/20/07 7:02 AM MCH 30.7 27.2 - 32.6 pg [facility] BASOPHILS ABSOLUTE 0.00 0.00 - 0.20 K/uL [facility] LYMPHOCYTES 10(L) 16 - 45 % [facility] RBC MORPHOLOGY Normal Normal [facility] MONOCYTE ABSOLUTE 0.17 0.10 - 1.30 K/uL [facility] NEUTROPHILS, SEG 74(H) 45 - 70 % [facility] BASOPHILS 0 0 - 2 % [facility] NEUTROPHIL ABSOLUTE 0.89(L) 1.90 - 7.00 K/uL [facility] TOTAL CELLS COUNTED IN DIFF 50 WBC Counted [facility] MONOCYTES 14(H) 3 - 13 % [facility] EOSINOPHIL ABSOLUTE 0.02 0.00 - 0.70 K/uL [facility] PLATELET EST. Consistent w/ count Normal [facility] LYMPHOCYTE ABSOLUTE 0.12(L) 0.70 - 4.50 K/uL [facility] EOSINOPHILS 2 0 - 7 % [facility] Blood specimen (specimen) 11/20/2007 4:58 AM CDT 11/20/2007 5:41 AM CDT [facility] HEMATOLOGY ORDERABLES Edited Performing Organization Address City/[facility]/ZIP Co de Phone Number [facility] CLIA# [id number] [address] [place], [place] [address] * BLOOD BANK DRAW ONLY (11/18/2007 1:33 PM CDT) Blood specimen (specimen) 11/18/2007 1:33 PM CDT 11/18/2007 1:33 PM CDT [facility] BLOOD BANK ORDERABLES Final Resu lt Performing Organization Address City/[facility]/ZIP Co de Phone Number INTERFACE SYSTEM Refer to clinic/hospital department * (ABNORMAL) CBC WITH DIFFERENTIAL (11/18/2007 11:55 AM CDT) HEMATOCRIT 31.7(L) 40.0 - 48.0 % [facility] RDW-STDEV 46.9 37.1 - 48.7 fL [facility] RBC 3.50(L) 4.50 - 5.40 M/uL [facility] MCHC 34.1 31.5 - 35.5 % [facility] MCV 90.6 82.0 - 99.0 fL [facility] HEMOGLOBIN 10.8(L) 13.6 - 16.5 g/dL [facility] RDW 14.3 11.5 - 14.5 % [facility] WBC 2.6(L) 4.0 - 9.8 K/uL [facility] MCH 30.9 27.2 - 32.6 pg [facility] PLATELETS 88(L) 140 - 350 K/uL [facility] MPV 10.1 9.3 - 12.4 fL [facility] MONOCYTE ABSOLUTE 0.10 0.10 - 1.30 K/uL [facility] ANISOCYTOSIS Slight [facility] LYMPHOCYTES 12(L) 16 - 45 % [facility] NEUTROPHIL ABSOLUTE 2.18 1.90 - 7.00 K/uL [facility] NEUTROPHILS, SEG 81(H) 45 - 70 % [facility] BASOPHILS 0 0 - 2 % [facility] EOSINOPHIL ABSOLUTE 0.00 0.00 - 0.70 K/uL [facility] MONOCYTES 4 3 - 13 % [facility] REVIEWED ON SMEAR Plt OK by Smear Rev. [facility] LYMPHOCYTE ABSOLUTE 0.31(L) 0.70 - 4.50 K/uL [facility] BANDS 3 0 - 5 % [facility] PLATELET EST. Consistent w/ count Normal [facility] BASOPHILS ABSOLUTE 0.00 0.00 - 0.20 K/uL [facility] EOSINOPHILS 0 0 - 7 % [facility] Blood specimen (specimen) 11/18/2007 11:55 AM CDT 11/18/2007 12:00 PM CDT us Chencho Pete MD HEMATOLOGY ORDERABLES Edite d [facility] CLIA# [id number] [address] [place] [address] * (ABNORMAL) COMPREHENSIVE METABOLIC PANEL (11/18/2007 8:17 AM CDT) CREATININE 0.75 0.67 - 1.17 mg/dL [facility] ALT 15 0 - 41 U/L [facility] SODIUM 135 135 - 145 mmol/L [facility] ALKALINE PHOSPHATASE 116 40 - 129 U/L [facility] CO2 26 22 - 30 mmol/L [facility] BILIRUBIN TOTAL 0.3 0.2 - 1.0 mg/dL [facility] POTASSIUM 3.4(L) 3.5 - 4.9 mmol/L [facility] TOTAL PROTEIN 6.2(L) 6.3 - 8.6 g/dL [facility] GLUCOSE 80 65 - 99 mg/dL [facility] AST 11(L) 12 - 38 U/L [facility] BUN 12 6 - 20 mg/dL [facility] CALCIUM 8.1(L) 8.4 - 10.2 mg/dL [facility] ALBUMIN 3.5 3.4 - 4.8 g/dL [facility] CHLORIDE 100 96 - 108 mmol/L [facility] GFR, >60 >=60 mL/min/1. 7 sq meter [facility] GFR >60 >=60 mL/min/1. 7 sq meter [facility] Comment: Modification of Diet in Renal Disease (MDRD) study formula. Estimated GFR rate interpretative information for both Americans and non- Americans is available on the [facility] Intranet at: [email or web address] Select: Lab Policies and Procedures Select: Reference Ranges - GFR Blood specimen (specimen) 11/18/2007 8:17 AM CDT 11/18/2007 8:58 AM CDT Hsiaoou Hu CHEMISTRY ORDERABLES Edited [facility] CLIA# [id number] [address] [place] [id number] * (ABNORMAL) CBC WITH DIFFERENTIAL (11/18/2007 8:17 AM CDT) HEMATOCRIT 30.2(L) 40.0 - 48.0 % [facility] RDW-STDEV 47.3 37.1 - 48.7 fL [facility] RBC 3.32(L) 4.50 - 5.40 M/uL [facility] MCHC 33.8 31.5 - 35.5 % [facility] MCV 91.0 82.0 - 99.0 fL [facility] HEMOGLOBIN 10.2(L) 13.6 - 16.5 g/dL [facility] RDW 14.4 11.5 - 14.5 % [facility] WBC 2.9(L) 4.0 - 9.8 K/uL [facility] MCH 30.7 27.2 - 32.6 pg [facility] MONOCYTES 4 3 - 13 % [facility] MONOCYTE ABSOLUTE 0.12 0.10 - 1.30 K/uL [facility] NEUTROPHILS 83(H) 45 - 70 % [facility] NEUTROPHIL ABSOLUTE 2.41 1.90 - 7.00 K/uL [facility] EOSINOPHILS 1 0 - 7 % [facility] EOSINOPHIL ABSOLUTE 0.02 0.00 - 0.70 K/uL [facility] LYMPHOCYTES 11(L) 16 - 45 % [facility] LYMPHOCYTE ABSOLUTE 0.32(L) 0.70 - 4.50 K/uL [facility] BASOPHILS 1 0 - 2 % [facility] BASOPHILS ABSOLUTE 0.02 0.00 - 0.20 K/uL [facility] MPV 11.3 9.3 - 12.4 fL [facility] PLATELETS 51(L) 140 - 350 K/uL [facility] Comment: Persistent abnormal result Platelets verified by smear review. Blood specimen (specimen) 11/18/2007 8:17 AM CDT 11/18/2007 8:58 AM CDT [facility] ORDERABLES Edited Performing Organization Address City/[facility]/ZIP Co de Phone Number [facility] CLIA# [id number] [address] [place], [place] [address] * PRODUCT PLATELETS (11/18/2007 7:53 AM CDT) Specimen of unknown material (specimen) 11/18/2007 7:53 AM CDT 11/18/2007 9:32 AM CDT Narrative INTERFACE SYSTEM - 11/18/2007 9:32 AM CDT stat for PEG tube placement [facility] BLOOD [facility] ORDERABLES Final Resu lt Performing Organization Address [facility] Co de Phone Number INTERFACE SYSTEM Refer to clinic/hospital department * (ABNORMAL) BASIC METABOLIC PANEL (11/17/2007 1:13 PM CDT) POTASSIUM 3.9 3.5 - 4.9 mmol/L [facility] BUN 16 6 - 20 mg/dL [facility] CHLORIDE 99 96 - 108 mmol/L [facility] GLUCOSE 92 65 - 99 mg/dL [facility] SODIUM 135 135 - 145 mmol/L [facility] CALCIUM 8.3(L) 8.4 - 10.2 mg/dL [facility] CO2 27 22 - 30 mmol/L [facility] CREATININE 0.84 0.67 - 1.17 mg/dL [facility] Comment: Significant change from prior result, correlate clinically and redraw if necessary. GFR, >60 >=60 mL/min/1. 7 sq meter [facility] GFR >60 >=60 mL/min/1. 7 sq meter [facility] Comment: Modification of Diet in Renal Disease (MDRD) study formula. Estimated GFR rate interpretative information for both Americans and non- Americans is available on the [facility] Intranet at: [email or web address] Select: Lab Policies and Procedures Select: Reference Ranges - GFR Blood specimen (specimen) 11/17/2007 1:13 PM CDT 11/17/2007 2:37 PM CDT Cyril Hua MD CHEMISTRY ORDERABLES Ed ited [facility] CLIA# [id number] [address] [facility] [place] [address] * XR CHEST PA OR AP (11/16/2007 6:42 PM CDT) Anatomical Region Laterality Modality Chest Other 11/16/2007 6:42 PM CDT Narrative 11/16/2007 9:13 PM CDT [facility] [address] [place], [place] [address] Admit Date: 11/16/2007 FRANCK LOUISE Sex: M Admit Prov: YE CORNELIUS Date: 1965 Primary Care Prov: CMRN: [id number] Room: ER-A N: [id number] IMAGING SERVICES Ordering Prov: N/A Accession Number: [id number] Interpretation Portable AP upright chest at 1840 hours. 11/16/2007 History: Weakness and dizziness. Findings: The lung fernandez are clear and well aerated without significant infiltrate. There is no pneumothorax or pleural effusion. The heart size is normal. Impression: No acute disease. . Dictated by: CRISTINA OTTO 11/16/2007 18:56 Electronically signed by: CRISTINA OTTO 11/16/2007 21:13 Transcribed: 11/16/2007 19:00 AMK Procedure Note Cristina Otto MD - 11/16/2007 [facility] [address] [place], [place] [address] Admit Date: 11/16/2007 FRANCK LOUISE Sex: M Admit Prov: YE CORNELIUS Date: 1965 Primary Care Prov: CMRN: [id number] Room: [facility] SSN: [id number] IMAGING SERVICES Ordering Prov: N/A Interpretation Portable AP upright chest at 1840 hours. 11/16/2007 History: Weakness and dizziness. Findings: The lung fernandez are clear and well aerated withoutsignificant infiltrate. There is no pneumothorax or pleural effusion. The heartsize is normal. Impression: No acute disease. . Dictated by: CRISTINA OTTO 11/16/2007 18:56 Electronically signed by: CRISTINA OTTO 11/16/2007 21:13 Transcribed: 11/16/2007 19:00 AMK Jaime Luong MD DIAGNOSTIC IMAGING ORDERABLES F inal Result * (ABNORMAL) C-REACTIVE PROTEIN (11/16/2007 4:49 PM CDT) CRP 4.2(H) 0.0 - 0.8 mg/dL [facility] Blood specimen (specimen) 11/16/2007 4:49 PM CDT 11/16/2007 4:59 PM CDT Jaime Luong MD CHEMISTRY ORDERABLES Final Resu lt [facility] CLIA# [id number] [address] [place] [address] * (ABNORMAL) COMPREHENSIVE METABOLIC PANEL (11/16/2007 4:49 PM CDT) CO2 31(H) 22 - 30 mmol/L [facility] TOTAL PROTEIN 7.3 6.3 - 8.6 g/dL [facility] POTASSIUM 3.2(L) 3.5 - 4.9 mmol/L [facility] GLUCOSE 118(H) 65 - 99 mg/dL [facility] AST 11(L) 12 - 38 U/L [facility] BUN 33(H) 6 - 20 mg/dL [facility] CALCIUM 9.2 8.4 - 10.2 mg/dL [facility] CHLORIDE 92(L) 96 - 108 mmol/L [facility] ALBUMIN 4.1 3.4 - 4.8 g/dL [facility] CREATININE 1.41(H) 0.67 - 1.17 mg/dL [facility] SODIUM 133(L) 135 - 145 mmol/L [facility] ALT 19 0 - 41 U/L [facility] ALKALINE PHOSPHATASE 150(H) 40 - 129 U/L [facility] BILIRUBIN TOTAL 0.5 0.2 - 1.0 mg/dL [facility] GFR, >60 >=60 mL/min/1. 7 sq meter [facility] GFR 55(L) >=60 mL/min/1. 7 sq meter [facility] Comment: Modification of Diet in Renal Disease (MDRD) study formula. Estimated GFR rate interpretative information for both Americans and non- Americans is available on the [facility] Intranet at: [email or web address] Select: Lab Policies and Procedures Select: Reference Ranges - GFR Blood specimen (specimen) 11/16/2007 4:49 PM CDT 11/16/2007 4:59 PM CDT Jaime Luong MD CHEMISTRY ORDERABLES Edited [facility] CLIA# [id number] [address] [facility] [address] * (ABNORMAL) CBC WITH DIFFERENTIAL (11/16/2007 4:49 PM CDT) RBC 3.83(L) 4.50 - 5.40 M/uL [facility] MCHC 34.6 31.5 - 35.5 % [facility] MCV 90.6 82.0 - 99.0 fL [facility] HEMOGLOBIN 12.0(L) 13.6 - 16.5 g/dL [facility] RDW 14.4 11.5 - 14.5 % [facility] WBC 6.2 4.0 - 9.8 K/uL [facility] MCH 31.3 27.2 - 32.6 pg [facility] HEMATOCRIT 34.7(L) 40.0 - 48.0 % [facility] RDW-STDEV 47.0 37.1 - 48.7 fL [facility] NEUTROPHILS 86(H) 45 - 70 % [facility] NEUTROPHIL ABSOLUTE 5.34 1.90 - 7.00 K/uL [facility] EOSINOPHILS 0 0 - 7 % [facility] EOSINOPHIL ABSOLUTE 0.02 0.00 - 0.70 K/uL [facility] LYMPHOCYTES 8(L) 16 - 45 % [facility] LYMPHOCYTE ABSOLUTE 0.49(L) 0.70 - 4.50 K/uL [facility] BASOPHILS 0 0 - 2 % [facility] BASOPHILS ABSOLUTE 0.02 0.00 - 0.20 K/uL [facility] MONOCYTES 6 3 - 13 % [facility] MONOCYTE ABSOLUTE 0.36 0.10 - 1.30 K/uL [facility] PLATELETS 67(L) 140 - 350 K/uL [facility] Comment: Platelets verified by smear review. MPV 12.0 9.3 - 12.4 fL [facility] Blood specimen (specimen) 11/16/2007 4:49 PM CDT 11/16/2007 4:59 PM CDT Jaime Luong MD HEMATOLOGY ORDERABLES Edited Performing Organization Address City/[facility]/ZIP Co de Phone Number [facility] CLIA# [id number] [address] [place] [address] * BLOOD CULTURE (11/16/2007 4:49 PM CDT) PRELIMINARY REPORT No growth to date. Culture in progress [facility] FINAL REPORT No growth 5 days [facility] Blood specimen (specimen) 11/16/2007 4:49 PM CDT 11/16/2007 6:48 PM CDT us Jaime Luong MD MICROBIOLOGY - GENERAL ORDERABL ES Final Result Performing Organization Address City/[facility]/ZIP Co de Phone Number [facility] CLIA# [id number] [address] [place] [place] [address] * BLOOD CULTURE (11/16/2007 4:49 PM CDT) PRELIMINARY REPORT No growth to date. Culture in progress [facility] FINAL REPORT No growth 5 days [facility] Blood specimen (specimen) 11/16/2007 4:49 PM CDT 11/16/2007 6:48 PM CDT Jaime Luong MD MICROBIOLOGY - GENERAL ORDERABL ES Final Result Performing Organization Address City/[facility]/ZIP Co de Phone Number [facility] CLIA# [id number] [address] [place] [address] * URINE CULTURE (11/16/2007 4:49 PM CDT) Pathologist [facility] PRELIMINARY REPORT Pending [facility] FINAL REPORT Polymicrobial growth present consistent with urethral jin and/or colonizing bacteria. [facility] 11/16/2007 4:49 PM CDT 11/16/2007 5:26 PM CDT Jaime Luong MD MICROBIOLOGY - GENERAL ORDERABL ES Final Result Performing Organization Address [facility] Co de Phone Number [facility] CLIA# [id number] [address] [place] [address] * (ABNORMAL) URINALYSIS WITH MICROSCOPIC (11/16/2007 4:49 PM CDT) Pathologist [facility] LEUKOCYTE ESTERASE UA Negative Negative [facility] RBC UA 4(H) 0 - 3 /HPF [facility] CLARITY UA Clear Clear [facility] GLUCOSE UA Negative Negative [facility] BLOOD UA 1+(A) Negative [facility] NITRITE UA Negative Negative [facility] EPITHELIAL CELLS, URINE 0-2 /HPF [facility] UROBILINOGEN UA <1 <=1 mg/dL [facility] SPECIFIC GRAVITY UA 1.017 1.001 - 1.035 [facility] PH UA 5.5 5.0 - 8.0 [facility] WBC UA 4(H) 0 - 3 /HPF [facility] KETONES UA Negative Negative [facility] COLOR UA Yellow [facility] BILIRUBIN UA Negative Negative [facility] PROTEIN UA Trace(A) Negative [facility] 11/16/2007 4:49 PM CDT 11/16/2007 4:59 PM CDT us Jaime Luong MD URINE ORDERABLES Final Result Performing Organization Address [facility] Co de Phone Number [facility] CLIA# [id number] [address] [place] [address] * ED HOLD (11/16/2007 4:32 PM CDT) SPECIMEN HOLD, BLOOD 7 days [facility] Specimen of unknown material (specimen) 11/16/2007 4:32 PM CDT 11/16/2007 4:59 PM CDT us Jaime Luong MD CHEMISTRY ORDERABLES Final Resu lt Performing Organization Address City/[facility] Co de Phone Number [facility] CLIA# [id number] [address] [place] [address] documented in this encounter Visit Diagnoses Diagnosis Hypotension, unspecified documented in this encounter Care Teams Health Professional Relationship Specialty [place] [address] [place] [address] PCP - General 04/25/09 documented as of this encounter
--- OUTSIDE RECORDS SUMMARY | 2024-08-12 08:29 | XMS_ITS | Encounter Summary ---
Author Organization [employer] Address [address] [place] [address] Care Team Providers Care Auto Wrecker Name Role Phone Franck Garcia MD Primary Care Provider [phone] Encounter Details Date Type Department Care Team (Latest Contact Info) Description 04/25/2008 Outpatient Historical [facility] Hemal Rolandleny Malignant Neoplasm of Head, Face, and Neck (CMS/HCC) Social History Tobacco Use Types Packs/Day Years Used Date Smoking Tobacco: Never Assessed Sex and Gender Information Value Date Recorded Sex Assigned at Not on file Legal Sex Male 5:32 AM DOCK BOSS Gender Identity Not on file Sexual Orientation Not on file documented as of this encounter Plan of Treatment Not on file documented as of this encounter Procedures Procedure Name Priority Date/Time Associated Diagnosis Comments CBC WITH DIFFERENTIAL Stat 04/29/2008 9:37 AM DOCK BOSS COMPREHENSIVE METABOLIC PANEL Stat 04/29/2008 9:37 AM DOCK BOSS PET TUMOR OR INFECTION IMG W CT SKB MDTH Routine 04/25/2008 8:28 AM DOCK BOSS documented in this encounter Results * (ABNORMAL) COMPREHENSIVE METABOLIC PANEL (04/29/2008 9:37 AM DOCK BOSS) ALKALINE PHOSPHATASE 82 40 - 129 U/L [facility] BILIRUBIN TOTAL 0.3 0.2 - 1.0 mg/dL [facility] CO2 30 22 - 30 mmol/L [facility] POTASSIUM 4.5 3.5 - 4.9 mmol/L [facility] TOTAL PROTEIN 7.3 6.3 - 8.6 g/dL [facility] GLUCOSE 141(H) 65 - 99 mg/dL [facility] AST 22 12 - 38 U/L [facility] BUN 17 6 - 20 mg/dL [facility] CALCIUM 9.7 8.6 - 10.2 mg/dL [facility] ALBUMIN 4.5 3.4 - 4.8 g/dL [facility] CHLORIDE 97 96 - 108 mmol/L [facility] CREATININE 0.90 0.67 - 1.17 mg/dL [facility] ALT 21 0 - 41 U/L [facility] SODIUM 138 135 - 145 mmol/L [facility] GFR, >60 >=60 mL/min/1. [address] [facility] GFR >60 >=60 mL/min/1. [address] [facility] Comment: Modification of Diet in Renal Disease (MDRD) study formula. Estimated GFR rate interpretative information for both Americans and non- Americans is available on the [facility] Intranet at: [email or web address] Select: Lab Policies and Procedures Select: Reference Ranges - GFR Blood specimen (specimen) 04/29/2008 9:37 AM DOCK BOSS 04/29/2008 9:43 AM DOCK BOSS Hsiaoou Hu CHEMISTRY ORDERABLES Edited INTERFACE SYSTEM Refer to clinic/hospital department [facility] CLIA# [id number] [address] [place] [address] * (ABNORMAL) CBC WITH DIFFERENTIAL (04/29/2008 9:37 AM DOCK BOSS) WBC 5.3 4.0 - 9.8 K/uL [facility] MCH 31.8 27.2 - 32.[address] [facility] MPV 10.4 9.3 - 12.[address] [facility] HEMATOCRIT 40.6 40.0 - 48.0 % [facility] RDW-STDEV 42.9 37.1 - 48.[address] [facility] RBC 4.43(L) 4.50 - 5.40 M/uL [facility] MCHC 34.7 31.5 - 35.5 % [facility] MCV 91.6 82.0 - 99.[address] [facility] PLATELETS 215 140 - 350 K/uL [facility] HEMOGLOBIN 14.1 13.6 - 16.5 g/dL [facility] RDW 12.7 11.5 - 14.5 % [facility] BASOPHILS 1 0 - 2 % [facility] BASOPHILS ABSOLUTE 0.05 0.00 - 0.20 K/uL [facility] MONOCYTES 10 3 - 13 % [facility] MONOCYTE ABSOLUTE 0.53 0.10 - 1.30 K/uL [facility] NEUTROPHILS 66 45 - 70 % [facility] NEUTROPHIL ABSOLUTE 3.53 1.90 - 7.00 K/uL [facility] EOSINOPHILS 4 0 - 7 % [facility] EOSINOPHIL ABSOLUTE 0.21 0.00 - 0.70 K/uL [facility] LYMPHOCYTES 19 16 - 45 % [facility] LYMPHOCYTE ABSOLUTE 1.01 0.70 - 4.50 K/uL [facility] Blood specimen (specimen) 04/29/2008 9:37 AM DOCK BOSS 04/29/2008 9:43 AM DOCK BOSS Ye Recio HEMATOLOGY ORDERABLES Edited INTERFACE SYSTEM Refer to clinic/hospital department [facility] CLIA# [id number] [address] [place] [address] * PET TUMOR IMG W CT SKL BSE MID THG (04/25/2008 8:28 AM DOCK BOSS) Anatomical Region Laterality Modality Other 04/25/2008 8:28 AM DOCK BOSS Narrative 04/25/2008 10:45 AM DOCK BOSS [facility] [address] [place], [place] [address] Admit Date: 04/25/2008 KIERADEMETRIFRANCK Sex: M Admit Prov: YE RECIO Date: 1965 Primary Care Prov: CMRN: [id number] Room: [facility] SSN: [id number] IMAGING SERVICES Ordering Prov: N/A Accession Number: [id number] Interpretation WHOLE BODY PET/CT HISTORY: 42 year old male 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 He was treated with a tonsillectomy and left superior omohyoid neck dissection at that time. PET/CT imaging from September 2007 demonstrated postsurgical changes without evidence for recurrent or residual malignancy. Is not received radiation therapy or chemotherapy. CT imaging from December 2007 demonstrated only slight asymmetry the base of tongue without evidence for a true mass. A new PET-CT study is needed for re-staging. PROCEDURE: Approximately 60 minutes after injection with 10.14 mCi of F-18 labeled FDG, CT imaging was acquired from the level of the orbits to the most proximal thighs. Subsequently, positron emission imaging was acquired over the same territory. The patient's blood glucose level at the time of tracer injection was 129 mg/dl. FINDINGS: Correlation is made with CT imaging dated 01/18/2008, and the prior PET/CT study dated 10/07/2007. Tracer activity in the gordon matter, basal ganglia, thalamus and cerebellum is unremarkable. At the level of the head and neck, postsurgical changes are evident in the region of the left palatine tonsil and in the left cervical territory. However, no significant adenopathy is identified. Salivary gland, glottic and thyroid activity is within normal physiologic limits. The supraclavicular fossa are free of suspicious adenopathy. At the level of the chest, there is a normal pattern of tracer activity. Specifically, there is no significant uptake within the axillary or mediastinal lymphatics. Both lungs demonstrate an unremarkable pattern of tracer distribution. The right middle lobe groundglass opacity seen on the prior study is unchanged on the current, and remains FDG negative. This finding is therefore very likely benign. A calcified left lower lobe granuloma is entirely FDG negative. At the level of the abdomen, uptake within the liver, spleen, stomach, adrenals and bowel is normal. No significant adenopathy is present in the mesenteric, portacaval, perihepatic or retroperitoneal territories. Normal tracer excretion via the kidneys is seen. At the level of the pelvis, there is normal tracer distribution to the iliac, obturator, inguinal and femoral lymph node territories bilaterally. Prostatic FDG uptake is within normal physiologic limits. Staples images are available on the hospital PACS system for review. IMPRESSION: 1. Postsurgical changes in the head and neck. 2. No evidence for recurrent or residual malignancy. 3. No significant change since prior PET/CT study of 10/07/2007. . 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 He was treated with a tonsillectomyand left superior omohyoid neck dissection at that time. PET/CT imaging fromSeptember 2007 demonstrated postsurgical changes without evidence for recurrentor residual malignancy. Is not received radiation therapy orchemotherapy. CT imaging from December 2007 demonstrated only slight asymmetry the baseof tongue without evidence for a true mass. A new PET-CT study is neededfor re-staging. PROCEDURE: Approximately 60 minutes after injection with 10.14 mCi of F-18labeled FDG, CT imaging was acquired from the level of the orbits to themost proximal thighs. Subsequently, positron emission imaging was acquiredover the same territory. The patient's blood glucose level at the time oftracer injection was 129 mg/dl. FINDINGS: Correlation is made with CT imaging dated 01/18/2008, and the priorPET/CT study dated 10/07/2007. Tracer activity in the gordon matter, basalganglia, thalamus and cerebellum is unremarkable. At the level of the headand neck, postsurgical changes are evident in the region of the leftpalatine tonsil and in the left cervical territory. However, no significant adenopathy is identified. Salivary gland, glottic and thyroidactivity is within normal physiologic limits. The supraclavicular fossa are freeof suspicious adenopathy. At the level of the chest, there is a normal pattern of traceractivity. Specifically, there is no significant uptake within the axillary or mediastinal lymphatics. Both lungs demonstrate an unremarkablepattern of tracer distribution. The right middle lobe groundglass opacity seenon the prior study is unchanged on the current, and remains FDG negative.This finding is therefore very likely benign. A calcified left lowerlobe granuloma is entirely FDG negative. At the level of the abdomen, uptake within the liver, spleen,stomach, adrenals and bowel is normal. No significant adenopathy is present inthe mesenteric, portacaval, perihepatic or retroperitoneal territories.Normal tracer excretion via the kidneys is seen. At the level of the pelvis,there is normal tracer distribution to the iliac, obturator, inguinal andfemoral lymph node territories bilaterally. Prostatic FDG uptake is withinnormal physiologic limits. Staples images are available on the hospital PACS system for review. IMPRESSION: 1. Postsurgical changes in the head and neck. 2. No evidence for recurrent or residual malignancy. 3. No significant change since prior PET/CT study of 10/07/2007. . Dictated by: KOLE GONZALEZ 04/25/2008 10:31 Electronically signed by: KOLE GONZALEZ 04/25/2008 10:44 Hsiaoou Hu PE ORDERABLES Final Result documented in this encounter Visit Diagnoses Diagnosis Malignant neoplasm of head, face, and neck (CMS/HCC) Malignant neoplasm of head, face, and neck documented in this encounter Care Teams Auto Wrecker Relationship Specialty [place] [address] [facility] [address] [place] [address] PCP - General 04/25/09 documented as of this encounter
--- OUTSIDE RECORDS SUMMARY | 2024-08-12 08:29 | XMS_ITS | Encounter Summary ---
Author Organization [employer] Address [address] [place] [address] Care Team Providers Care Shank Maker Name Role Phone Clifton Garcia MD Primary Care Provider [phone] Encounter Details Date Type Department Care Team (Latest Contact Info) Description 01/09/2008 Outpatient Historical [facility] David Seymour MD [facility] [address] [place] [address] Hilario Howard MD [address] [facility] [facility] [address] [place] [address] Malignant Neoplasm of Head, Face, and Neck (CMS/HCC) Social History Tobacco Use Types Packs/Day Years Used Date Smoking Tobacco: Never Assessed Sex and Gender Information Value Date Recorded Sex Assigned at Not on file Legal Sex Male 5:32 AM BELT WEAVER Gender Identity Not on file Sexual Orientation Not on file documented as of this encounter Plan of Treatment Not on file documented as of this encounter Visit Diagnoses Diagnosis Malignant neoplasm of head, face, and neck (CMS/HCC) Malignant neoplasm of head, face, and neck documented in this encounter Care Teams Shank Maker Relationship Specialty [place] [address] [facility] [address] [place], [place] [id number] PCP - General 04/25/09 documented as of this encounter
--- OUTSIDE RECORDS SUMMARY | 2024-08-12 08:29 | XMS_ITS | Encounter Summary ---
Author Organization [employer] Address [address] [place] [address] Care Team Providers Care Watch Train Inspector Name Role Phone Clifton Garcia MD Primary Care Provider [phone] Encounter Details Date Type Department Care Team (Latest Contact Info) Description 09/03/2007 Outpatient Historical [facility] RAD[facility]APY David Seymour MD [facility] [address] [place] [address] Hilario Howard MD [address] [facility] [facility] [address] [place] [address] Malignant Neoplasm of Head, Face, and Neck (CMS/HCC) Social History Tobacco Use Types Packs/Day Years Used Date Smoking Tobacco: Never Assessed Sex and Gender Information Value Date Recorded Sex Assigned at Not on file Legal Sex Male 5:32 AM DRY SAND MOLDER Gender Identity Not on file Sexual Orientation Not on file documented as of this encounter Plan of Treatment Not on file documented as of this encounter Visit Diagnoses Diagnosis Malignant neoplasm of head, face, and neck (CMS/HCC) Malignant neoplasm of head, face, and neck documented in this encounter Care Teams Watch Train Inspector Relationship Specialty [place] [address] [facility] [address] [place], [place] [id number] PCP - General 11/3/09 documented as of this encounter
--- OUTSIDE RECORDS SUMMARY | 2024-08-12 08:29 | XMS_ITS | Encounter Summary ---
Author Organization [employer] Address [address] [place] [address] Care Team Providers Care Clinical Nurse Specialist Name Role Phone Franck Garcia MD Primary Care Provider [phone] Encounter Details Date Type Department Care Team (Latest Contact Info) Description 01/18/2008 Outpatient Historical [facility] Stephania Howard MD [address] [facility] [address] [place] [address] Malignant Neoplasm of Tonsil (CMS/HCC) Social History Tobacco Use Types Packs/Day Years Used Date Smoking Tobacco: Never Assessed Sex and Gender Information Value Date Recorded Sex Assigned at Not on file Legal Sex Male 5:32 AM AGENCY CASHIER Gender Identity Not on file Sexual Orientation Not on file documented as of this encounter Plan of Treatment Not on file documented as of this encounter Procedures Procedure Name Priority Date/Time Associated Diagnosis Comments CT SOFT TISSUE NECK W CONTRAST Routine 01/18/2008 3:31 PM CDT documented in this encounter Results * CT SOFT TISSUE NECK W CONTRAST (01/18/2008 3:31 PM CDT) Anatomical Region Laterality Modality Neck Other 01/18/2008 3:31 PM CDT Narrative 01/19/2008 12:18 PM CDT [facility] [address] [place], [place] [address] Admit Date: 01/18/2008 FRANCK LOUISE Sex: M Admit Prov: STEPHANIA HOWARD Date: 1965 Primary Care Prov: CMRN: [id number] Room: [facility] SSN: [id number] IMAGING SERVICES Ordering Prov: N/A Accession Number: [id number] Interpretation CT SCAN SOFT TISSUE NECK WITH IV CONTRAST 01/18/2008. History: Malignant neoplasm of tonsil Findings: Fossae of Rosenmueller and torus tubarius regions appear symmetric. Skullbase appears normal. There is some enhancement at the left tongue base which is asymmetric with respect to the opposite side. Reportedly, this is the site of prior resection. Patient is status post left neck dissection. There is motion artifact due to breathing or coughing. Pre-epiglottic space is slightly edematous. No adenopathy is identified in the upper neck. Left aryepiglottic fold is edematous. Vocal cords appear symmetric. Right and left lobes of the thyroid appear normal. Impression: Status post left tonsillectomy and left neck dissection. Slightly asymmetric enhancement of base of tongue without definite mass. Hypopharyngeal edema. . Dictated by: LATESHA CARTAGENA 01/18/2008 16:12 Electronically signed by: LATESHA CARTAGENA 01/19/2008 12:16 Transcribed: 01/18/2008 18:44 AMK Procedure Note Latesha Cartagena MD - 01/19/[address] [address] Admit Date: 01/18/2008 FRANCK LOUISE Sex: M Admit Prov: STEPHANIA HOWARD Date: 1965 Primary Care Prov: CMRN: [id number] Room: [facility] SSN: [id number] IMAGING SERVICES Ordering Prov: N/A Interpretation CT SCAN SOFT TISSUE NECK WITH IV CONTRAST 01/18/2008. History: Malignant neoplasm of tonsil Findings: Fossae of Rosenmueller and torus tubarius regions appear symmetric. Skullbase appears normal. There is some enhancement at the lefttongue base which is asymmetric with respect to the opposite side. Reportedly,this is the site of prior resection. Patient is status post left neckdissection. There is motion artifact due to breathing or coughing. Pre-epiglotticspace is slightly edematous. No adenopathy is identified in the upper neck.Left aryepiglottic fold is edematous. Vocal cords appear symmetric. Rightand left lobes of the thyroid appear normal. Impression: Status post left tonsillectomy and left neck dissection. Slightly asymmetric enhancement of base of tongue without definitemass. Hypopharyngeal edema. . Dictated by: LATESHA CARTAGENA 01/18/2008 16:12 Electronically signed by: LATESHA CARTAGENA 01/19/2008 12:16 Transcribed: 01/18/2008 18:44 AMK us Stephania Howard MD CT ORDERABLES Final Result documented in this encounter Visit Diagnoses Diagnosis Malignant neoplasm of tonsil (CMS/HCC) Malignant neoplasm of tonsil documented in this encounter Care Teams Clinical Nurse Specialist Relationship Specialty [place] [address] [facility] [address] [place] [address] PCP - General 04/25/09 documented as of this encounter
--- OUTSIDE RECORDS SUMMARY | 2024-08-12 08:29 | XMS_ITS | Encounter Summary ---
Author Organization [facility] Address [address] [place] [address] Care Team Providers Care Television Program Director Name Role Phone Franck Garcia MD Primary Care Provider [phone] Encounter Details Date Type Department Care Team (Late st Contact Info) Description 03/14/2008 Outpatient Historical [facility] Abilio Bernstein MD [address] [place] [id number] Social History Tobacco Use Types Packs/Day Years Used Date Smoking Tobacco: Never Assessed Sex and Gender Information Value Date Recorded Sex Assigned at Not on file Legal Sex Male 5:32 AM TREAD BOOKER Gender Identity Not on file Sexual Orientation Not on file documented as of this encounter Plan of Treatment Not on file documented as of this encounter Procedures Procedure Name Priority Date/Time Associated Diagnosis Comments PATHOLOGY Routine 03/14/2008 3:26 PM CDT HELICOBACTER PYLORI RAPID UREASE TEST Routine 03/14/2008 2:35 PM CDT documented in this encounter Results * PATHOLOGY (03/14/2008 3:26 PM CDT) FINAL REPORT [place] [address] [place], [place] [address] Patient: FRANCK LOUISE : 1965 Procedure Date: 03/14/2008 Accession Date: 03/14/2008 Case No: [id number] Ordering Dr: Ace BERNSTEIN Case types AW, BW, FW, NW and SH are performed by [facility] [place] SURGICAL PATHOLOGY & NON-GYNECOLOGIC CYTOPATHOLOGY REPORT DIAGNOSIS ESOPHAGUS, ENDOSCOPIC BIOPSY: - GASTRIC MUCOSA WITH FEATURES CONISTENT WITH MILD REFLUX (SEE DESCRIPTION). Specimen Description: Esophagus biopsies. Operative Procedure: EGD. Patient Information/Histo ry/Diagnosis: Endoscopic findings c/w Gee's Esophagus. Bx from this area above GE junction. Is there dysplasia? Gross: The specimen is received in a container labeled Franck Louise, esophagus. It consists of two pieces of cardoso tissue measuring less than 0.1 and 0.2 cm in greatest dimension. The specimen is submitted entirely labeled A1. KLA/SHAJI 03.14.2008 07:06 pm Microscopic: The sections are labeled [id number], Franck Louise. The biopsy from the esophagus displays gastric mucosa with mild nonspecific reactive changes and slight inflammation. No squamous component is identified in the biopsy material. No specialized intestinal metaplasia is identified. No dysplasia is seen. BBK/TMZ 03.15.2008 11:56 am Staging Form: No. ELECTRONIC SIGNATURE FOR AGUSTIN SINGER M.D.- 03/15/08 12:20 pm INTERFACE SYSTEM 03/14/2008 3:26 PM CDT Abilio Bernstein MD PATHOLOGY/CYTOLOGY ORDER SIN Final Result Performing Organization Address City/State/[facility] Co de Phone Number INTERFACE SYSTEM Refer to clinic/hospital department * HELICOBACTER PYLORI RAPID UREASE TEST (03/14/2008 2:35 PM CDT) FINAL REPORT KATHARINA Test: Negative [facility] 03/14/2008 2:35 PM CDT 03/14/2008 4:10 PM CDT Abilio Bernstein MD MICROBIOLOGY - GENERAL O RDERABLES Final Result INTERFACE SYSTEM Refer to clinic/hospital department [facility] CLIA# [id number] [address] [place] [address] documented in this encounter Visit Diagnoses Not on filedocumented in this encounter Care Teams Television Program Director Relationship Specialty [place] [address] [place], [place] [id number] PCP - General 04/25/09 documented as of this encounter
--- OUTSIDE RECORDS SUMMARY | 2024-08-12 08:29 | XMS_ITS | Encounter Summary ---
Author Organization [employer] Address [address] [place] [address] Care Team Providers Care Service Order Taker Name Role Phone Clifton Garcia MD Primary Care Provider [phone] Encounter Details Date Type Department Care Team (Latest Contact Info) Description 06/01/2008 Outpatient Historical [facility] RADIATION THERAPY David Seymour MD [address] [place] [address] [address] [place] [address] Malignant Neoplasm of Oropharynx, Unspecified Site (CMS/HCC) Social History Tobacco Use Types Packs/Day Years Used Date Smoking Tobacco: Never Assessed Sex and Gender Information Value Date Recorded Sex Assigned at Not on file Legal Sex Male 5:32 AM APPLICATION RELEASE MANAGER Gender Identity Not on file Sexual Orientation Not on file documented as of this encounter Plan of Treatment Not on file documented as of this encounter Visit Diagnoses Diagnosis Malignant neoplasm of oropharynx, unspecified site (CMS/HCC) Malignant neoplasm of oropharynx, unspecified site documented in this encounter Care Teams Service Order Taker Relationship Specialty Start [place] [address] [address] [place] [address] PCP - General 04/25/09 documented as of this encounter
--- OUTSIDE RECORDS SUMMARY | 2024-08-12 08:29 | XMS_ITS | Continuity of Care Document ---
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 Name Role Phone Clifton Garcia MD Unavailable Unavailable Allergies, Adverse Reactions, Alerts Substance Reaction Status Criticality No Known Drug Allergies Other Active No I nformation Procedures Procedure Date FALL RISK ASSESSMENT DOC'D PRES/ABSN URINE INCON ASSESS Pt inelig neg scrn depres PREVENTATIVE-EST: 40-64 BODY MASS INDEX DOCD SYST BP LT 130 MM HG DIAST BP < 80 MM HG COMPREHEN METABOLIC PANEL CMP HEMOGLOBIN A1C HGA1C, GLYCO LIPID PANEL MICROALBUMIN, QN (URINE) CREATININE, (U-R) PSA, TOTAL ROUTINE VENIPUNCTURE FALL RISK ASSESSMENT DOC'D PRES/ABSN URINE INCON ASSESS OFFICE [id number] BODY MASS INDEX DOCD SYST BP LT 130 MM HG DIAST BP < 80 MM HG HEMOGLOBIN A1C HGA1C, GLYCO ROUTINE VENIPUNCTURE FALL RISK ASSESSMENT DOC'D PRES/ABSN URINE INCON ASSESS IMMUN ADMIN (INC PERCUTANEOUS) SINGLE, F IRST INJ COMPREHEN METABOLIC PANEL CMP 3 HEMOGLOBIN A1C HGA1C, GLYCO LIPID PANEL MICROALBUMIN, QN (URINE) CREATININE, (U-R) PSA, TOTAL ROUTINE VENIPUNCTURE PREVENTATIVE-EST: 40-64 BODY MASS INDEX DOCD SYST BP LT 130 MM HG DIAST BP 80-89 MM HG Pt inelig neg scrn depres LDL-CHOLESTEROL, DIRECT FLU VAC NO PRSV 4 TATIANA, 0.5mL DOSAGE FALL RISK ASSESSMENT DOC'D PRES/ABSN URINE INCON ASSESS Pt inelig neg scrn depres PREVENTATIVE-EST: 40-64 BODY MASS INDEX DOCD SYST BP LT 130 MM HG DIAST BP 80-89 MM HG COMPREHEN METABOLIC PANEL CMP 1 HEMOGLOBIN A1C HGA1C, GLYCO LIPID PANEL MICROALBUMIN, QN (URINE) CREATININE, (U-R) PSA, TOTAL ROUTINE VENIPUNCTURE FALL RISK ASSESSMENT DOC'D PRES/ABSN URINE INCON ASSESS OFFICE [id number] BODY MASS INDEX DOCD SYST BP LT 130 MM HG DIAST BP 80-89 MM HG HEMOGLOBIN A1C HGA1C, GLYCO ROUTINE VENIPUNCTURE FALL PLAN OF CARE DOC'D URINE INCON PLAN DOC'D PRES/ABSN URINE INCON ASSESS HEMOGLOBIN A1C HGA1C, GLYCO ROUTINE VENIPUNCTURE IMMUN ADMIN (INC PERCUTANEOUS) LAUREN, Carole IRST INJ Flu Vac, quad (RIV4), Preservative And A ntibiotic Free IM OFFICE [id number] BODY MASS INDEX DOCD SYST BP LT 130 MM HG DIAST BP < 80 MM HG FALL PLAN OF CARE DOC'D URINE INCON PLAN DOC'D PRES/ABSN URINE INCON ASSESS IMMUN ADMIN (INC PERCUTANEOUS) LAUREN, Carole IRST INJ Flu Vac, quad (RIV4), Preservative And A ntibiotic Free IM HEMOGLOBIN A1C HGA1C, GLYCO ROUTINE VENIPUNCTURE OFFICE [id number] BODY MASS INDEX DOCD SYST BP GE 130 - 139MM HG DIAST BP 80-89 MM HG SCREENING COLONOSCOPY (NOT HIGH RISK) Oc FALL PLAN OF CARE DOC'D URINE INCON PLAN DOC'D PRES/ABSN URINE INCON ASSESS COMPREHEN METABOLIC PANEL [facility] 9 HEMOGLOBIN A1C HGA1C, GLYCO LIPID PANEL MICROALBUMIN, QN (URINE) CREATININE, (U-R) PSA, TOTAL ROUTINE VENIPUNCTURE IMMUN ADMIN (INC PERCUTANEOUS) LAUREN, F IRST INJ PNEUMOCOCCAL CONJUGATE VACCINE, 13 DOTTY T, IM Pt inelig neg scrn depres PREVENTATIVE-EST: 40-64 BODY MASS INDEX DOCD SYST BP LT 130 MM HG DIAST BP < 80 MM HG Advance Directives Directive Yes / No Effective Date File Name Life Support Not Answered N/A N/A Intubation Not Answered N/A N/A Antibiotics Not Answered N/A N/A IV Fluid Support Not Answered N/A N/A Tube Feed Not Answered N/A N/A Other Directive N/A N/A WARNING:The information contained in this section is historical and is provided for information only and does not constitute a legal document or any assurance that the information is still accurate. Please verify the information with the glover of the legal document before using it for clinical purposes. Encounters Encounter Description Practice Location Reason(s) For Visit Diagnoses Date Provider Providers Copied on Encounter [email or web address], [address], [place], [place], [address] , tel: [phone] [facility] No Information 5 Jose Lazo. [address] [place] [address], [address] , [place], [place], [address], . tel:[phone] [email or web address], [address], [place], [place], [address] , tel: [phone] [facility] No Information 4 Jose Lazo. [address] [place] [address], [address] , [place], [place], [address], . tel:[phone] [email or web address], [address] [place] [address], [id number] , tel: [phone] [facility] No Information 4 Jose Lazo. [address] [place] [address], [address] , [place], [place], [address], . tel:[phone] PREVENTATIVE -EST: 40-64 [email or web address], [address] [facility], [place], [place], [address] , tel:[phone] [facility] Chronic Conditions (chief complaint) Encounter for annual health examinationContr olled type 2 diabetes mellitus with diabetic cataract, without long-term current use of insulinPrimary hypertensionHype rlipidemia, unspecified hyperlipidemia typeCervical myelopathyAnxiet yScreening for prostate cancerEncounter for immunizationBody mass index [BMI] 26.0-26.9, adult 4 Jose Lazo. [address] [place] [address], [facility] [address] , [place], [place], [address], . tel:[phone] Referring Provider: Clifton Garcia [address] [place] [address] [address], [place], [address] . tel:[phone] OFFICE ARBVC-TIG-LH TAILED [facility], [address], [place], [place], [address] , tel:[phone] [facility] Chronic Conditions (chief complaint) Controlled type 2 diabetes mellitus with complication, without long-term current use of insulinCervical myelopathyEncoun ter for immunization 3 Jose Lazo. [address] [place] [address], [address], [place], [place], [address], . tel:[phone] Referring Provider: Clifton Garcia, [address] [place] [address] [address], [place], [address] . tel:[phone] PREVENTATIVE -EST: [facility], [address], [place], [place], [address] , tel: [phone] [facility] Chronic Conditions (chief complaint) Hyperlipidemia, unspecified hyperlipidemia typeScreening for prostate cancerEncounter for annual health examinationContr olled type 2 diabetes mellitus without complication, without long-term current use of insulinPrimary hypertensionCerv ical myelopathyChroni c sinusitis, unspecified location 3 Jose Lazo. [address] [place] [address], [address], [place], [place], [address], . tel:[phone] Referring Provider: Clifton Garcia [address] [place] [address] [address] , [place], [address] . tel:[phone] PREVENTATIVE -EST: [facility], [address], [place], [place], [address] , tel:[phone] [facility] Chronic Conditions (chief complaint) Encounter for annual health examinationContr olled type 2 diabetes mellitus without complication, without long-term current use of insulinPrimary hypertensionHype rlipidemia, unspecified hyperlipidemia typeCervical myelopathySmoker Screening for prostate cancer 1 Jose Lazo. [address] [place] [address], [address] , [place], [place], [address], . [phone] Referring Provider: Clifton Garcia [address] [place] [address] [address], [place], [address] . tel:[phone] OFFICE DGCPP-ZBZ-HD [facility], [address], [place], [place], [address] , tel: [phone] [facility] Chronic Conditions (chief complaint) Controlled type 2 diabetes mellitus without complication, without long-term current use of insulinSmokerSea rafael allergic rhinitis, unspecified trigger 0 Jose Lazo. [address] [place] [address], [address], [place], [place], [address], . [phone] Referring Provider: Clifton Garcia, [address] [place] [address] [address], [place], [address] . tel:[phone] OFFICE OAOSZ-XXW-LW [facility], [address], [place], [place], [address] , tel: [phone] [facility] Chronic Conditions (chief complaint) Uncontrolled type 2 diabetes mellitus with hyperglycemiaEnc ounter for immunizationEsse ntial hypertensionHype rlipidemia, unspecified hyperlipidemia typeErectile dysfunction, unspecified erectile dysfunction typeSmoker 0 Jose Lazo. [address] [place] [address], [address], [place], [place], [address], . tel:[phone] Referring Provider: Clifton Garcia, [address] [place] [address] [address], [place], [address] . tel:[phone] OFFICE ARITI-ZEY-YH PANDED [facility], [address], [place], [place], [address] , tel: [phone] [facility] Chronic Conditions (chief complaint) Controlled type 2 diabetes mellitus without complication, without long-term current use of insulinEncounter for immunizationErec tile dysfunction due to diseases classified elsewhere 9 Jose Lazo. [address] [place] [address], [address], [place], [place], [address], . [phone] Referring Provider: Clifton Garcia, [address] [place] [address] [address], [place], [address] . tel:[phone] [facility], [address], [place], [address] , [place] tel: [phone] [facility] No Information Marisol Alatorre. [address] [facility], [address], [place], [place], [address], . tel:[phone] Referring Provider: Clifton Garcia, [address] [place] [address] [address], [place], [address] . tel:[phone] PREVENTATIVE -EST: 40-64 [email or web address], [address], [place], [place], [address] , [place] tel: [phone] [facility] Chronic Conditions (chief complaint) Cervical myelopathyContro lled type 2 diabetes mellitus without complication, without long-term current use of insulinEssential hypertensionHype rlipidemia, unspecified hyperlipidemia typeSkin lesionSmokerScre ening for prostate cancerScreening for colon cancerBody mass index (BMI) 26.0-26.9, adultEncounter for general health examination 9 Jose Lazo. [address] [place] [address], [address], [place], [address], [place]. [phone] Referring Provider: Clifton Garcia, [address] [place] [address] [address], [place], [address] . tel:[phone] [email or web address], [address], [place], [place], [address] , [place] tel: [phone] [facility] Controlled type 2 diabetes mellitus without complication, without long-term current use of insulinHyperlipi demia, unspecified hyperlipidemia typeCervical myelopathyEssent ial hypertensionScre ening for prostate cancer 7 Jose Lazo. [address] [place] [address], [address], [place], [place], [address], [place]. [phone] Referring Provider: Clifton Garcia [address] [place] [address] [address], [place], [address] . tel:[phone] [email or web address], [address], [place], [address] , [place] tel: [phone] [facility] UnderweightCervi heidi myelopathyContro lled type 2 diabetes mellitus without complication, without long-term current use of insulin 7 Elsa Almazan. [address] [facility], [address], [place], [place], [address], . tel:[phone] Referring Provider: Clifton Garcia, [address] [place] [address] [address], [place], [address] . tel:[phone] [facility] [employer], [address], [place], [place], [address] , tel: [phone] [facility] Radiculopathy of cervical region Brice Aileen. [address], [place], [place], [address]. tel:[phone] [email or web address], [address], [place], [place], [address] , tel: [phone] [facility] Cervical radiculopathyAcu te non-recurrent sinusitis, unspecified location Brice Aileen. [address] , [address], [place], [place], [address]. tel:[phone] Referring Provider: Clifton Garcia, [address] [place] [address] [address], [place], [address] . tel:[phone] [facility], [address], [place], [place], [address] , tel: [phone] [facility] Controlled type 2 diabetes mellitus without complication, without long-term current use of insulinEssential hypertensionHype rlipidemia, unspecified hyperlipidemia typeMild episode of recurrent major depressive disorderGastroes ophageal reflux disease without esophagitisSmoke rAnxietyNeed for Tdap vaccination Brice Aileen. [address] [facility], [address], [place], [place], [address]. tel:[phone] Referring Provider: Clifton Garcia [address] [place] [address] [address], [place], [address] . tel:[phone] [email or web address], [address], [place], [place], [address] , tel: [phone] [facility] Diabetes mellitus type 2, uncontrolledHype rlipidemia, unspecified [address] [place] [address], [address], [place], [place], [address], . tel:[phone] Referring Provider: Clifton Garcia, [address] [place] [address] [address], [place], [address] . tel:[phone] [email or web address], [address], [place], [place], [address] , tel: [phone] [facility] Encounter for general health examinationDiabe brenda mellitus type 2, controlledHypert ensionHyperlipid emiaED (erectile dysfunction)Pros valentin cancer screening 5 Jose Lazo. [address] [place] [address], [address], [place], [place], [address], . tel:[phone] Referring Provider: Clifton Garcia, [address] [place] [address] [address], [place], [address] . tel:[phone] [email or web address], [address], [place], [place], [address] , tel: [phone] [facility] Dysthymic disorderDiabetes mellitus without mention of complication, type II or unspecified type, not stated as uncontrolledEsop hageal refluxOther and unspecified hyperlipidemiaUn specified essential hypertension 3 Elsa Almazan. [address] , [address], [place], [place], [address], . tel:[phone] Referring Provider: Clifton Garcia, [address] [place] [address] [address], [place], [address] . tel:[phone] [email or web address], [address], [place], [place], [address] , tel: [phone] [facility] Diabetes mellitus type 2, controlledHypert ensionHyperlipid emiaGERD (gastroesophagea l reflux disease)Anxiety and depressionPerson al history of malignant neoplasm of other and unspecified parts of oral cavity and pharynxFatigueSc reening for malignant neoplasms of the prostate 3 Brice Gallagher. [address], [place], [place], [address]. tel:[phone] Referring Provider: Clifton Garcia, [address] [place] [address] [address], [place], [address] . tel:[phone] [email or web address], [address], [place], [place], [address] , tel: [phone] [facility] Unspecified essential hypertensionEsop hageal refluxDiabetes mellitus type 2, controlledHyperl ipidemiaPersonal history of malignant neoplasm of other and unspecified parts of oral cavity and pharynxDepressiv e disorder, not elsewhere classified 2 Brice Gallagher. [address] [place] [address], [address], [place], [place], [address]. tel:[phone] Referring Provider: Clifton Garcia, [address] [place] [address] [address] , [place], [address] . tel:[phone] [email or web address], [address], [place], [place], [address] , tel: [phone] [facility] Diabetes mellitus without mention of complication, type II or unspecified type, not stated as uncontrolledOthe r and unspecified hyperlipidemiaEs ophageal refluxPersonal history of malignant neoplasm of other and unspecified parts of oral cavity and pharynx 2 Jose Lazo. [address] [place] [address], [facility] [address] , [place], [place], [address], . tel:[phone] [email or web address], [address], [place], [place], [address] , tel: [phone] [facility] Diabetes mellitus without mention of complication, type II or unspecified type, not stated as uncontrolledUnsp ecified essential hypertensionOthe r and unspecified hyperlipidemiaEs ophageal refluxANXIETY STATE NOSScreening for malignant neoplasms of the prostate 1 Jose Lazo. [address] [place] [address], [address] , [place], [place], [address], . tel:[phone] Referring Provider: Clifton Garcia, [address] [place] [address] [address], [place], [address] . tel:[phone] [email or web address], [address], [place], [address] , [place] tel: [phone] [facility] DM Controlled, No ComplicationUnsp ecified essential hypertensionOthe r and unspecified hyperlipidemiaAn xiety state, unspecifiedEsoph ageal reflux 1 Jose Lazo. [address] [place] [address], [address], [place], [place], [address], . tel: [phone] Referring Provider: Clifton Garcia, [address] [place] [address] [address], [place], [address] . tel:[phone] [facility] [employer], [address], [place], [address] , [place] tel: [phone] [facility] Unspecified essential hypertension 1 Jose Lazo. [address] [place] [address], [address] , [place], [place], [address], . tel: [phone] [email or web address], [address], [place], [place], [address] , tel: [phone] [facility] SCREENING-PULMON RUTH TB 8 Jose Lazo. [address] [place] [address], [address], [place], [address], [place]. tel: [phone] [facility] [employer], [address], [place], [address] , [place] tel: [phone] [facility] ACUTE BRONCHITIS [phone] Elsa Almazna. [address] [place] [address], [address], [place], [place], [address], . tel: [phone] [email or web address], [address], [place], [address] , [place] tel: [phone] [facility] ENLARGEMENT LYMPH NODES [phone] Jose Lazo. [address] [place] [address], [address], [place], [place], [address], . tel: [phone] [email or web address], [address], [place], [place], [address] , tel: [phone] [facility] CHEST PAIN NOS 8200 8 Conversion Doctor. [address] [place] [address], [place], [address], [place]. [facility], [address], [place], [address] , [place] tel: [phone] [facility] COUGH 5200 7 Conversion Doctor. [address] [place] [address], [address], [place]. [facility], [address], [place], [place], [address] , tel: [phone] [facility] ACUTE URI NOS Feb- 6 Conversion Doctor. [address] [place] [address], [address], [place]. [facility], [address], [place], [address] , [place] tel: [phone] [facility] ANXIETY STATE NOS 6 Elsa Almazan. [address] [place] [address], [address], [place], [place], [address], . tel: [phone] [facility], [address], [place], [address] , tel: [phone] [facility] BENIGN HYPERTENSIONDMII WO CMP NT ST UNCNTRSHORTNESS OF BREATHMIXED HYPERLIPIDEMIAMA LAISE AND FATIGUE NEC 6 Jose Lazo. [address] [place] [address], [address], [place], [address], [place]. tel: [phone] [facility], [address], [place], [address] , [place] tel: [phone] [facility] PURE HYPERCHOLESTEROL EMHYPERLIPIDEMIA NEC/NOS 6 Jose Lazo. [address] [place] [address], [address], [place], [place], [address], . tel: [phone] Family History Family Member Type Diagnosis Age At Onset Father Problem (finding) prostate cancer Mother Problem (finding) diabetes melli tus in first degree relative Immunizations Vaccine Date Status Comments zoster recombinant administered Source: O ther Provider zoster recombinant administered Source: O ther Provider Fluzone High-Dose, high dose , preservative free administered Source: New Immuniza tion Record [employer] ([employer] Recon[employer] d) COVID19 Vaccine, 0.3mL per dose, 2 doses, administered 21 days apart administered Note: booster shot ; Source: Source Unspecified Pfizer ([employer]) COVID19 Vaccine, 0.3mL per dose, 2 doses, administered 21 days apart administered Source: Source Unspe cified Pfizer ([employer] Re[employer] d) COVID19 Vaccine, 0.3mL per dose, 2 doses, administered 21 days apart administered Source: Source Unspe cified Flublok, quadrivalent, preservative free, 0.5mL dosage administered Source: New Immuniza tion Record Payers Payer name Insurance type Covered republican ID Authoriza tion(s) [facility] [employer] [place] [id number] [facility] [place] CI [id number] [facility] [place] CI [id number] [facility] CI [id number] Social History Type Description Quantity Date Captured Comments Alcohol Use Details Unknown Caffeine Use Details Unknown Tobacco Use Status Smoking Status No Information Sex Male Chief Complaint And Reason For Visit No Information Reason For Referral Reason For Referral No Information Plan Of Treatment Date Type Action Status Goal Dietary management education , guidance, and counseling completed Goal Tobacco cessation counseling completed Goal Dietary management education , guidance, and counseling completed Goal Tobacco cessation counseling completed Goal Tobacco cessation counseling completed Goal Tobacco cessation counseling completed Goal Dietary management education , guidance, and counseling completed History Of Present Illness Encounter Date Complaint History Of Prese nt Illness Chronic Conditions *See Chronic Conditions HPI Chronic Conditions *See Chronic Conditions HPI Chronic Conditions *See Chronic Conditions HPI Chronic Conditions *See Chronic Conditions HPI Chronic Conditions *See Chronic Conditions HPI Chronic Conditions *See Chronic Conditions HPI Chronic Conditions *See Chronic Conditions HPI Chronic Conditions *See Chronic Conditions HPI Functional Status Date Functional Assessmen t No Information Instructions Date Instruction Additional Infor andrzej Check PSA today. Related to Scre ening for prostate cancer Get the Shingrix. Related to Enc ounter for immunization Continue current med ications for now. Related to Anxiety No new recommendations. Related to Cervical myelopathy Continue medications at current dose/regimen and check CMP. Related to Primary hypertension Continue medications at current dose/regimen and check A1C and micral. F/u with ophtho. Goals: Your goal is to monitor your diabetes. Barriers: No barriers to goal achievement have been identified. 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 Related to Hyperlipidemia, unspecified hyperlipidemia type Get appropriate vacc nav. Return 6 months Related to Encounter for annual health examination Giving encouragement to exercise Related to Body mass index (BMI) 26.0-26.9, adult Dietary management e ducation, guidance, and counseling Related to Body mass index (BMI) 26.0-26.9, adult Disease process Get a flu shot. Related to Encou nter for immunization OK to try healthcare interpreter. Rel ated to Cervical myelopathy Continue medications at current dose/regimen and check A1C. Goals: Your goal is to monitor your diabetes. Barriers: No barriers to goal achievement have been identified. Related to Controlled type 2 diabetes mellitus with complication, without long-term current use of insulin Disease process Check PSA today. Related to Scre ening for prostate cancer Given [facility] inf ormation to call and get an appt. Related to Chronic sinusitis, unspecified location Needs an MRI of the cervical spi ne. Related to Cervical myelopathy Follow a low cholest mehdi diet and check lipids. Related to Hyperlipidemia, unspecified hyperlipidemia type Continue medications at current dose/regimen and check CMP. Related to Primary hypertension Continue medications at current dose/regimen and check A1C and micral. Goals: Your goal is to manage your medicine. Barriers: No barriers to goal achievement have been identified. Related to Controlled type 2 diabetes mellitus without complication, without long-term current use of insulin Get appropriate vacc nav. Return 6 months Related to Encounter for annual health examination Disease process Check PSA today. Related to Scre ening for prostate cancer Fall precautions. Related to Cer vical myelopathy Continue medications at current dose/regimen and check A1C and UA. Your goal is to monitor your diabetes. No barriers to goal achievement have been identified. Related to Controlled type 2 diabetes mellitus without complication, without long-term current use of insulin Continue medications at current dose/regimen and check CMP. Related to Primary hypertension Follow a low cholest mehdi diet and check lipids. Related to Hyperlipidemia, unspecified hyperlipidemia type Get appropriate vaccines. Relate d to Encounter for annual health examination Fall Risk Prevention Disease process Urinary Incontinence Diabetes Health Report Continue medications at current dose/regimen and check A1C. Your goal is to manage your medicine. No barriers to goal achievement have been identified. Related to Controlled type 2 diabetes mellitus without complication, without long-term current use of insulin Try Claritin 10mg 2 times daily Related to Seasonal allergic rhinitis, unspecified trigger Dietary management e ducation, guidance, and counseling Related to Body mass index (BMI) 27.0-27.9, adult Diabetes Health Report Diabetes Health Report Giving encouragement to exercise Related to Body mass index (BMI) 27.0-27.9, adult Disease process Continue current med ications for now. Related to Hyperlipidemia, unspecified hyperlipidemia type Try Tadalafil. Related to Erect ile dysfunction, unspecified erectile dysfunction type Continue medications at current dose/regimen and check A1C. Your goal is to monitor your diabetes. No barriers to goal achievement have been identified. Related to Uncontrolled type 2 diabetes mellitus with hyperglycemia Continue current med ications for now. Related to Essential hypertension Disease process Diabetes Health Report Retry sildenafil and call if not helping. Related to Erectile dysfunction due to diseases classified elsewhere Continue medications at current dose/regimen and check A1C. Your goal is to manage your medicine. No barriers to goal achievement have been identified. Related to Controlled type 2 diabetes mellitus without complication, without long-term current use of insulin Fall Risk Prevention Disease process Diabetes Health Report Urinary Incontinence Refer for a colonoscopy. Related to Screening for colon cancer Not for sure cancero us but recommend seeing dermatology. Related to Skin lesion Check PSA today. Related to Scre ening for prostate cancer Follow a low cholest mehdi diet and check lipids. Related to Hyperlipidemia, unspecified hyperlipidemia type Continue medications at current dose/regimen and check CMP. Related to Essential hypertension Call if any changes. Related to Cervical myelopathy Continue medications at current dose/regimen and check A1C and UA. Your goal is to manage your medicine. No barriers to goal achievement have been identified. Related to Controlled type 2 diabetes mellitus without complication, without long-term current use of insulin Get appropriate vaccines. Relate d to Encounter for general health examination Giving encouragement to exercise Related to Body mass index (BMI) 26.0-26.9, adult Disease process Dietary management e ducation, guidance, and counseling Related to Body mass index (BMI) 26.0-26.9, adult Disease process Assessments Type Assessment Date No Information Patient Care Teams Name Effective Dates (start - stop) Status Members No Information
--- OUTSIDE RECORDS SUMMARY | 2024-08-12 08:30 | XMS_ITS | Encounter Summary ---
Author Organization [employer] Address 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 Gender Identity Not on file Sexual Orientation Not on file documented as of this encounter Plan of Treatment Not on file documented as of this encounter Procedures Procedure Name Priority Date/Time Associated Diagnosis Comments PET TUMOR OR INFECTION IMG W CT SKB MDTH Routine 10/21/2008 10:09 AM CDT documented in this encounter Results * PET TUMOR IMG W CT SKL BSE MID THG (10/21/2008 10:09 AM CDT) Anatomical Region Laterality Modality Other 10/21/2008 10:0 9 AM CDT Narrative 10/21/2008 10:46 AM CDT [facility] [address] [place], [place] [address] Admit Date: 10/21/2008 FRANCK LOUISE Sex: M Admit Prov: YE CORNELIUS Date: 1965 Primary Care Prov: CMRN: [id number] Room: [facility] SSN: [id number] IMAGING SERVICES Ordering Prov: N/A Accession Number: [id number] Interpretation PET/CT imaging with hardware fusion 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 Procedure: Low mA noncontrast enhanced CT imaging performed for attenuation correction and anatomic localization from the canthal meatal line to mid thigh. 10.5 mCi F-18 FDG injected with a blood glucose of 127 mg %. PET imaging performed after approximately 65 minutes from the canthal meatal line through mid thigh. All SUVs reported are maximal within the region of interest and have units of MBq/ml. Findings: The visualized portions of the mid and lower brain appear normal. The sinuses appear normal. The nasopharynx appears normal. The oropharynx appears normal. The base of tongue is unremarkable. there is increased metabolism along the tip of the nose which has an SUV of 3.8; this is nonspecific and may represent local inflammation. No pathologic head and neck adenopathy noted. There is atrophy of the right submandibular gland. The left submandibular gland is surgically absent. The left jugular vein has been sacrificed. Subcutaneous stranding is seen in the mid neck suggestive of post radiation changes. The larynx has a normal appearance. The thyroid has a normal appearance. No supraclavicular adenopathy. No axillary adenopathy. The mediastinum appears free of pathologic adenopathy. No significant pulmonary nodules are identified. The liver has a homogeneous pattern of uptake with mild fatty infiltration. The spleen is normal in size with no hypodensities and a normal pattern of metabolism. The adrenal glands have a normal appearance. The kidneys have a normal appearance. No mesenteric, aortocaval, pelvic or inguinal adenopathy. Physiologic uptake within the transverse colon. Mild sigmoid diverticulosis. The bladder is decompressed. The prostate is of normal size. Multiple clips along the vas deferens suggesting prior vasectomies. No osseous abnormalities. Impressions: 1. No findings to suggest recurrent squamous cell cancer of the tonsil. 2. Mild diffuse hypermetabolism in the tip of the nose is nonspecific. Physical examination recommended to exclude the possibility of a skin cancer. . Dictated by: GISELE MCCABE 10/21/2008 10:15 Electronically signed by: GISELE MCCABE 10/21/2008 10:44 Procedure Note Gisele Mccabe MD - 10/21/2008 [facility] [address] [place], [place] [address] Admit Date: 10/21/2008 FRANCK LOUISE Sex: M Admit Prov: YE CORNELIUS Date: 1965 Primary Care Prov: CMRN: [id number] Room: [facility] SSN: [id number] IMAGING SERVICES Ordering Prov: N/A Interpretation PET/CT imaging with hardware fusion History: Restaging of squamous cell cancer of the left palatinetonsil. Procedure: Low mA noncontrast enhanced CT imaging performed forattenuation correction and anatomic localization from the canthal meatal line tomid thigh. 10.5 mCi F-18 FDG injected with a blood glucose of 127 mg %.PET imaging performed after approximately 65 minutes from the canthalmeatal line through mid thigh. All SUVs reported are maximal within theregion of interest and have units of MBq/ml. Findings: The visualized portions of the mid and lower brain appear normal.The sinuses appear normal. The nasopharynx appears normal. Theoropharynx appears normal. The base of tongue is unremarkable. there isincreased metabolism along the tip of the nose which has an SUV of 3.8; thisis nonspecific and may represent local inflammation. No pathologic headand neck adenopathy noted. There is atrophy of the right submandibulargland. The left submandibular gland is surgically absent. The left jugularvein has been sacrificed. Subcutaneous stranding is seen in the mid neck suggestive of post radiation changes. The larynx has a normalappearance. The thyroid has a normal appearance. No supraclavicular adenopathy.No axillary adenopathy. The mediastinum appears free of pathologic adenopathy. No significant pulmonary nodules are identified. Theliver has a homogeneous pattern of uptake with mild fatty infiltration.The spleen is normal in size with no hypodensities and a normal patternof metabolism. The adrenal glands have a normal appearance. Thekidneys have a normal appearance. No mesenteric, aortocaval, pelvic or inguinal adenopathy. Physiologic uptake within the transverse colon. Mildsigmoid diverticulosis. The bladder is decompressed. The prostate is ofnormal size. Multiple clips along the vas deferens suggesting priorvasectomies. No osseous abnormalities. Impressions: 1. No findings to suggest recurrent squamous cell cancer of thetonsil. 2. Mild diffuse hypermetabolism in the tip of the nose isnonspecific. Physical examination recommended to exclude the possibility of askin cancer. . Dictated by: GISELE MCCABE 10/21/2008 10:15 Electronically signed by: GISELE MCCABE 10/21/2008 10:44 Hsiaoou Hu PE ORDERABLES Final Result documented in this encounter Visit Diagnoses Diagnosis Malignant neoplasm of head, face, and neck (CMS/HCC) Malignant neoplasm of head, face, and neck documented in this encounter Care Teams Machine Coil Assembler Relationship Specialty [place] [address] [place] [address] PCP - General 04/25/09 documented as of this encounter
--- OUTSIDE RECORDS SUMMARY | 2024-08-12 08:30 | XMS_ITS | Encounter Summary ---
Author Organization [employer] Address [address] [place] [address] Care Team Providers Care Bone Char Kiln Tender Name Role Phone Clifton Garcia MD Primary Care Provider Encounter Details Date Type Department Care Team (Latest Contact Info) Description 10/28/2008 Outpatient Historical [facility] Hemal Rolandleny Malignant Neoplasm of Head, Face, and Neck (CMS/HCC) Social History Tobacco Use Types Packs/Day Years Used Date Smoking Tobacco: Never Assessed Sex and Gender Information Value Date Recorded Sex Assigned at Not on file Legal Sex Male 5:32 AM BMET Gender Identity Not on file Sexual Orientation Not on file documented as of this encounter Plan of Treatment Not on file documented as of this encounter Procedures Procedure Name Priority Date/Time Associated Diagnosis Comments CBC WITH DIFFERENTIAL Stat 10/28/2008 10:01 AM CDT COMPREHENSIVE METABOLIC PANEL Stat 10/28/2008 10:01 AM CDT documented in this encounter Results * (ABNORMAL) COMPREHENSIVE METABOLIC PANEL (10/28/2008 10:01 AM CDT) CREATININE 1.05 0.67 - 1.17 mg/dL [facility] ALT 25 0 - 41 U/L [facility] SODIUM 136 135 - 145 mmol/L [facility] ALKALINE PHOSPHATASE 69 40 - 129 U/L [facility] CO2 26 22 - 30 mmol/L [facility] BILIRUBIN TOTAL 0.3 0.2 - 1.0 mg/dL [facility] POTASSIUM 4.0 3.5 - 4.9 mmol/L [facility] TOTAL PROTEIN 7.4 6.3 - 8.6 g/dL [facility] GLUCOSE 134(H) 65 - 99 mg/dL [facility] AST 21 12 - 38 U/L [facility] BUN 17 6 - 20 mg/dL [facility] CALCIUM 9.7 8.6 - 10.2 mg/dL [facility] ALBUMIN 4.5 3.4 - 4.8 g/dL [facility] CHLORIDE 98 96 - 108 mmol/L [facility] GFR, >60 >=60 mL/min/1. 7 sq meter [facility] GFR >60 >=60 mL/min/1. 7 sq meter [facility] Comment: Modification of Diet in Renal Disease (MDRD) study formula. Estimated GFR rate interpretative information for both Americans and non- Americans is available on the [facility] Intranet at: [email or web address] Select: Lab Policies and Procedures Select: Reference Ranges - GFR Blood specimen (specimen) 10/28/2008 10:01 AM CDT 10/28/2008 10:01 AM CDT us Hsiaoou Hu CHEMISTRY ORDERABLES Edited INTERFACE SYSTEM Refer to clinic/hospital department [facility] CLIA# [id number] [address] [place], [place] [address] * (ABNORMAL) CBC WITH DIFFERENTIAL (10/28/2008 10:01 AM CDT) HEMOGLOBIN 14.6 13.6 - 16.5 g/dL [facility] RDW 13.5 11.5 - 14.5 % [facility] WBC 7.7 4.0 - 9.8 K/uL [facility] MCH 32.1 27.2 - 32.6 pg [facility] MPV 10.5 9.3 - 12.4 fL [facility] HEMATOCRIT 41.3 40.0 - 48.0 % [facility] RDW-STDEV 44.9 37.1 - 48.7 fL [facility] RBC 4.55 4.50 - 5.40 M/uL [facility] MCHC 35.4 31.5 - 35.5 % [facility] MCV 90.8 82.0 - 99.0 fL [facility] PLATELETS 209 140 - 350 K/uL [facility] EOSINOPHILS 3 0 - 7 % [facility] EOSINOPHIL ABSOLUTE 0.24 0.00 - 0.70 K/uL [facility] LYMPHOCYTES 15(L) 16 - 45 % [facility] LYMPHOCYTE ABSOLUTE 1.14 0.70 - 4.50 K/uL [facility] BASOPHILS 1 0 - 2 % [facility] BASOPHILS ABSOLUTE 0.04 0.00 - 0.20 K/uL [facility] MONOCYTES 10 3 - 13 % [facility] MONOCYTE ABSOLUTE 0.74 0.10 - 1.30 K/uL [facility] NEUTROPHILS 72(H) 45 - 70 % [facility] NEUTROPHIL ABSOLUTE 5.56 1.90 - 7.00 K/uL [facility] Blood specimen (specimen) 10/28/2008 10:01 AM CDT 10/28/2008 10:01 AM CDT Hsiaoou Hu HEMATOLOGY ORDERABLES Edited INTERFACE SYSTEM Refer to clinic/hospital department [facility] CLIA# [id number] [address] [place] [address] documented in this encounter Visit Diagnoses Diagnosis Malignant neoplasm of head, face, and neck (CMS/HCC) Malignant neoplasm of head, face, and neck documented in this encounter Care Teams Bone Char Kiln Tender Relationship Specialty [place] [address] [place] [address] PCP - General 04/25/09 documented as of this encounter
[2024-08-12 09:02] LABS: Add Urine Microscopic? YES; Appearance Urine Clear (Clear); Bacteria Urine None Seen /hpf; Bilirubin Urine Negative (Negative); Blood Urine Negative (Negative); Color Urine Yellow (Yellow); Glucose Urine UA Negative (Negative); Ketones Urine Negative (Negative); Leukocyte Esterase Ur Negative LEU/UL (Negative); Nitrate Urine Negative (Negative); Non Pathogenic Casts 0-2; Protein Urine Trace mg/dL (Negative); RBC Urine 0-2 /hpf (0-2); Squamous Epithelial Cell Urine None Seen /hpf (Few); Urobilinogen Urine 0.2 mg/dL (<2.0); WBC Urine 0-5 /hpf (0-3)
[2024-08-12 09:08] LABS: Creatine Kinase 56 U/L (55-170)
[2024-08-12 12:07] VITALS: BP 168/92; PULSE 84; RESP 16; O2SAT 97
== END 2024-08-12 12:08 | disposition home or self-care (01) ==
PROVIDERS: Emergency Provider Emergency Medicine; PCP Internal Medicine
DX: J18.9 Pneumonia, unspecified organism (principal); S00.83XA Contusion of other part of head, initial encounter; W06.XXXA Fall from bed, initial encounter; F17.290 Nicotine dependence, other tobacco product, uncomplicated
CPT/HCPCS: 36415; 70450; 71046; 72125; 80053; 81001; 82550; 85025; 96360; 99284; J7030

== ENCOUNTER 2024-09-02 09:53 | Emergency (ER) | payer OTHER, MEDICAID, SELFPAY ==
[2024-09-02] VITALS (8 sets, daily range): BP systolic 120–195; BP diastolic 79–139; PULSE 73–93; RESP 14–16; TEMP 36.3–36.6; O2SAT 96–100
--- NOTE | ~2024-09-02 | XR_ITS ---
Portable chest x-ray Comparison: 08/12/2024 Clinical History: Pneumonia Findings: Lungs are clear, without focal consolidation or pleural effusion. Cardiomediastinal silho uette is stable. Bones and soft tissues are unremarkable. Impression: Clear lungs. Reviewed, dictated and finalized at location . Impression: Clear lungs.
--- NOTE | ~2024-09-02 | CT_ITS ---
EXAMINATION: CT abdomen pelvis w con DATE: 09/02/2024 11:20 INDICATION: Left lower quadrant abdominal pain. TECHNIQUE: Computed tomography (CT) of the abdomen and pelvis was performed with 100 mL Omnipaque 350 intravenous contrast. Automated exposure control and iterative reconstruction technique were employe d. The dose-length product was 356.73 mGy-cm. COMPARISON: None. FINDINGS: The visualized portions of the lung bases demonstrate tree-in-bud opacities in lingula and left lower lobe and groundglass opacities in left lower lobe, consistent with pneumonia. There is mil d atelectasis in right lower lobe. A calcified left lung nodule is consistent with old granulomatous disease. No pleural effusion. The heart size is normal. There are coronary artery calcifications. No pericardial effusion. The liver, gallbladder, spleen, pancreas, adrenal glands, and right kidney are normal. There is a 7 mm cyst in left kidney. There are bilateral inguinal hernias containing fat. The re are no dilated loops of bowel. The appendix is normal. There are no pathologically enlarged lymph nodes. There is no free intraperitoneal fluid. There is mild lumbar spondylosis. IMPRESSION: 1. Pneumonia involving left lower lobe and lingula. 2. Bilateral inguinal hernias containing fat. Reviewed, dictated and finalized at location B.
--- NOTE | 2024-09-02 10:29 | ED.BACK ---
HPI - Back Pain/Injury General Chief Complaint: Back Pain/Injury Stated Complaint: low back flank pain Time Seen by Provider: 09/02/24 10:26 Source: patient and EMS Mode of arrival: EMS Limitations: no limitations History of Present Illness HPI Narrative: 58 YEAR OLD WHITE MALE CAME FROM LONGTERM BY AMBULANCE COMPLAINING OF LEFT FLANK PAIN STARTED OVER 1 WEEK AGO, HE DENIES ANY FEVER, CHILLS, NAUSEA, VOMITING, DIARRHEA, CONSTIPATION, TRAUMA OR NEW PHYSICAL ACTIVITIES. PATIENT REPORTS PAIN IS DULL ACHING, CONSTANT, NO AGGRAVATING OR RELIEVING FACTORS Related Data Home Medications ?Medication ?Instructions ?Recorded ?Confirmed ?Last Taken ?Type alprazolam 0.5 mg tablet 0.5 mg PO TID PRN 01/10/23 Unknown History empagliflozin 10 mg-metformin ER 1 tablet PO DAILY 01/10/23 Unknown History 1,000 mg tablet,extended release 24hr (Synjardy XR) glimepiride 4 mg tablet 4 mg PO QAM 01/10/23 Unknown History lisinopril 20 1 tablet PO DAILY 01/10/23 Unknown History mg-hydrochlorothiazide 12.5 mg tablet pioglitazone 15 mg tablet 15 mg PO DAILY 01/10/23 Unknown History simvastatin 40 mg tablet 40 mg PO DAILY 01/10/23 Unknown History Allergies Allergy/AdvReac Type Severity Reaction Status Date / Time No Known Allergies Allergy Verified 09/02/24 10:03 Review of Systems Review of Systems: All systems reviewed & are unremarkable except as noted in HPI and below PMFSH Family History Family History Father Diabetes mellitus Cancer Mother Hypertension Heart disease Social History Social History Social History: Clifton is very confident filling out medical forms. In the last 12 months he has not received assistance from an organization or program. 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 Lack of Transportation: No Lack of Food: Sometimes True Current Housing: I Have Housing Concerned About Future Housing: No Difficulty Paying Gas/Electric Bills: No Difficulty Paying for Meds: No Currently Unemployed: No Education: High School Diploma/GED Difficulty w/ Childcare or Family Care: No Living arrangements: alone Occupation/Education: occupation 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 MUSCULOSKELETAL: NORMAL RANGE OF MOTION, NONTENDER BACK, KYPHOSIS, SURGICAL NECK SCAR NEUROLOGIC: ALERT AND ORIENTED ?3, SCHOOL CHILD CARE ATTENDANT IS NORMAL TESTED, NO GROSS MOTOR DEFICIT Course Vital Signs Vital signs: Vital Signs Temperature 36.3 C L 09/02/24 09:51 Pulse Rate 93 09/02/24 09:51 Respiratory Rate 15 09/02/24 09:51 Blood Pressure 195/116 H 09/02/24 09:51 Pulse Oximetry 97 09/02/24 09:51 Oxygen Delivery Room Air 09/02/24 09:51 Temperature 36.6 C 09/02/24 14:15 Pulse Rate 77 09/02/24 14:15 Respiratory Rate 16 09/02/24 14:15 Blood Pressure 161/90 H 09/02/24 14:15 Pulse Oximetry 99 09/02/24 14:15 Oxygen Delivery Room Air 09/02/24 09:51 MDM - Back Pain/Injury MDM Narrative Medical decision making narrative: PATIENT PRESENTS WITH LEFT FLANK PAIN, NONTRAUMATIC VITAL SIGNS SHOWING BLOOD PRESSURE 195/116 OTHERWISE WITHIN NORMAL LIMIT PHYSICAL EXAMINATION INSIGNIFICANT DIFFERENTIAL DIAGNOSIS INCLUDE MUSCULOSKELETAL, KIDNEY STONE, URINARY TRACT INFECTION, PNEUMONIA, ELECTROLYTE IMBALANCE, DEHYDRATION, COLITIS, DIVERTICULITIS, CONSTIPATION BLOOD WORKUP TODAY INCLUDES CBC, CMP, LIPASE, SHOWED SHOWED NO SIGNIFICANT ABNORMALITY URINALYSIS SHOWED NO EVIDENCE OF INFECTION CT ABDOMEN PELVIS WITH IV CONTRAST SHOWED LEFT LOWER LOBE PNEUMONIA, PATIENT RECEIVED 750 MG OF LEVAQUIN IV, WAITING FOR CHEST X-RAY RESULT CHEST X-RAY SHOWED CLEAR LUNG., NO PNEUMONIA DISCHARGE WITH FLANK PAIN OF UNKNOWN ETIOLOGY, MUSCULOSKELETAL IS MY CONCERN. THE PT WAS DISCHARGED TO HOME.THE PT,S CONDITION UPON DISCHARGE WAS FAIR,EDUCATION WAS PROVIDED TO THE PT IN REFERENCE TO THE FINAL IMPRESSION,DISCHARGE STUDY RESULTS,TREATMENT,PROGNOSIS AND NEED FOR FOLLOW UP . Lab Data 09/02/24 10:42 09/02/24 10:42 Labs: Lab Results 09/02/24 Range/Units 10:42 WBC 7.8 (4.5-10.0) K/mm3 RBC 4.77 (4.6-6.20) M/mm3 Hgb 13.9 L (14.0-18.0) g/dL Hct 43.1 (42.0-52.0) % MCV 90.4 (80-100) fl MCH 29.1 (26-34) pg MCHC 32.3 (32-36) g/dl RDW 13.7 (11.5-14.5) % Plt Count 277 (150-375) k/mm3 MPV 10.9 H (7.4-10.4) fl Immature Gran % (Auto) 0.4 (0-0.5) % Neut % (Auto) 68.3 (45.5-73.1) % Lymph % (Auto) 17.3 L (18.3-44.2) % [place] % (Auto) 7.9 (2.6-8.5) % Eos % (Auto) 4.9 H (0-4.4) % Baso % (Auto) 1.2 (0.2-1.2) % Lymph # (Auto) 1.35 (0.9-3.2) K/mm3 [place] # (Auto) 0.6 (0.1-0.6) K/mm3 Eos # (Auto) 0.4 H (0-0.3) K/mm3 Baso # (Auto) 0.1 (0.0-0.1) K/mm3 Abs Immat Gran (auto) 0.03 (0.00-0.031) K/mm3 Absolute Neuts (auto) 5.3 (1.3-6.7) K/mm3 Absolute Nucleated RBC 0.000 (0.0-0.012) K/mm3 Nucleated RBC % 0.0 (0.0-0.2) % Sodium 139 (137-145) mmol/L Potassium 4.1 (3.4-5.0) mmol/L Chloride 100 (98-107) mmol/L Carbon Dioxide 28 (22-30) mmol/L Anion Gap 11 (4-12) mmol/L BUN 7 L (9-20) mg/dL Creatinine 0.88 (0.7-1.3) mg/dL Estim Creat Clear Calc 75 ml/min Estimated GFR > 60 (59 - ) Glucose 227 H (65-110) mg/dL Calcium 9.1 (8.4-10.2) mg/dL Total Bilirubin 0.4 (0.2-1.3) mg/dL AST 20 (17-59) U/L ALT 18 (6-50) U/L Alkaline Phosphatase 68 (38-126) U/L Total Protein 7.0 (6.3-8.2) g/dL Albumin 3.8 (3.5-5.1) g/dL Lipase 115 (23-300) U/L Urine Color Yellow (Yellow) Urine Appearance Clear (Clear) Urine pH 6.5 (5.0-9.0) Ur Specific [place] 1.006 (1.001-1.035) Urine Protein Negative (Negative) mg/dL Urine Glucose (UA) 2+ H (Negative) mg/dL Urine Ketones Negative (Negative) mg/dL Ur Blood (Man) Negative (Negative) Urine Nitrate Negative (Negative) Urine Bilirubin Negative (Negative) Urine Urobilinogen 0.2 (<2.0) mg/dL Leukocyte Esterase Rfl Negative (Negative) KO/UL Imaging Data My impression: Impressions Abdomen/Pelvis CT 09/02/24 11:37 IMPRESSION: 1. Pneumonia involving left lower lobe and lingula. 2. Bilateral inguinal hernias containing fat. Radiologist's impression: Impressions Abdomen/Pelvis CT 09/02/24 11:37 IMPRESSION: 1. Pneumonia involving left lower lobe and lingula. 2. Bilateral inguinal hernias containing fat. Critical Care Time Critical Care Time Critical Care Time: No Discharge Plan Discharge Clinical Impression: Acute left flank pain, Hypertension Patient Disposition: [place] Longterm/Asst Living Condition: Stable Instructions: Flank Pain (ED) Additional Instructions: RETURN IF SYMPTOMS ARE WORSENING , CALL YOUR FAMILY PHYSICIAN FOR APPOINTMENT, TAKE TYLENOL NEEDED FOR ACHES AND PAIN, CONTINUE HOME MEDICATIONS. Patient Language: Telugu Prescriptions: No Action alprazolam 0.5 mg tablet 0.5 mg PO TID PRN glimepiride 4 mg tablet 4 mg PO QAM Rx Instructions: administer with breakfast lisinopril-hydrochlorothiazide 20-12.5 mg tablet 1 tablet PO DAILY simvastatin 40 mg tablet 40 mg PO DAILY Synjardy XR 10-1,000 mg tablet, IR - ER, biphasic 24hr 1 tablet PO DAILY pioglitazone 15 mg tablet 15 mg PO DAILY amoxicillin-pot clavulanate 875-125 mg tablet 1 tablet PO Q12H Qty: 10 0RF Follow-up/Referrals: Jose,Clifton Glasgow MD [Primary Care Provider] -
[2024-09-02] MEDS: SODIUM CHLORIDE 0.9% IV 1,000 ML 999 ML IV CONT (10:46)
[2024-09-02 10:49] LABS: Basophils Absolute Auto 0.1 K/mm3 (0.0-0.1); Basophils Percent Auto 1.2 % (0.2-1.2); Eosinophils Absolute Auto 0.4 K/mm3 (0-0.3); Eosinophils Percent Auto 4.9 % (0-4.4); Hematocrit 43.1 % (42.0-52.0); Hemoglobin 13.9 g/dL (14.0-18.0); Immature Granulocyte Absolute 0.03 K/mm3 (0.00-0.031); Immature Granulocyte Percent A 0.4 % (0-0.5); Lymphocytes Absolute Auto 1.35 K/mm3 (0.9-3.2); Lymphocytes Percent Auto 17.3 % (18.3-44.2); Mean Corpuscular HGB Conc 32.3 g/dl (32-36); Mean Corpuscular Hemoglobin 29.1 pg (26-34); Mean Corpuscular Volume 90.4 fl (80-100); Mean Platelet Volume 10.9 fl (7.4-10.4); Monocytes Absolute Auto 0.6 K/mm3 (0.1-0.6); Monocytes Percent Auto 7.9 % (2.6-8.5); Neutrophils Absolute Auto 5.3 K/mm3 (1.3-6.7); Neutrophils Percent Auto 68.3 % (45.5-73.1); Platelet Count Result 277 k/mm3 (150-375); Red Blood Count 4.77 M/mm3 (4.6-6.20); Red Cell Distribution Width 13.7 % (11.5-14.5); White Blood Count 7.8 K/mm3 (4.5-10.0)
[2024-09-02 10:55] LABS: Add Urine Microscopic? NO; Appearance Urine Clear (Clear); Bilirubin Urine Negative (Negative); Blood Urine Negative (Negative); Color Urine Yellow (Yellow); Glucose Urine UA 2+ mg/dL (Negative); Ketones Urine Negative (Negative); Leukocyte Esterase Ur Negative LEU/UL (Negative); Nitrate Urine Negative (Negative); Protein Urine Negative (Negative); Specific Grav Ur 1.006 (1.001-1.035); Urobilinogen Urine 0.2 mg/dL (<2.0); pH Urine 6.5 (5.0-9.0)
[2024-09-02 11:01] LABS: Alanine Aminotransferase 18 U/L (6-50); Albumin Level 3.8 g/dL (3.5-5.1); Alkaline Phosphatase 68 U/L (38-126); Anion Gap 11 mmol/L (4-12); Aspartate Amino Transferase 20 U/L (17-59); Bilirubin,Total 0.4 mg/dL (0.2-1.3); Blood Urea Nitrogen 7 mg/dL (9-20); Calcium 9.1 mg/dL (8.4-10.2); Carbon Dioxide 28 mmol/L (22-30); Chloride 100 mmol/L (98-107); Estimated CRCL calculation 75 ml/min; Estimated Glomerular Filt Rate > 60; Glucose 227 mg/dL (65-110); Lipase 115 U/L (23-300); Potassium 4.1 mmol/L (3.4-5.0); Sodium 139 mmol/L (137-145)
--- OUTSIDE RECORDS SUMMARY | 2024-09-02 12:14 | XMS_ITS | Referral Summary ---
Author Organization [facility] Physician Office Building [address] [place] [id number] Care Team Providers Care Tumbler Operator Name Role Phone Franck Garcia MD Primary Care Provider [phone] Encounters Date Type Department Care Team Description 07/08/2024 12:43 PM TECHNOLOGY TEACHER - 07/13/2024 2:20 PM TECHNOLOGY TEACHER Hospital Encounter [address] [address] PrograisLizet MD Lun, Yu, MD Lopez, Manuel Emilio, MD Syncope and collapse (Primary Dx); Sepsis due to Escherichia coli, unspecified whether acute organ dysfunction present (HCC); Benign prostatic hyperplasia, unspecified whether lower urinary tract symptoms present Discharge Disposition: Discharge to SNF 07/08/2024 NH/SNF Visit [facility] Medical [address] [phone] Percy Collins MD Syncope and collapse (Primary Dx); Type 2 diabetes mellitus without complication, with long-term current use of insulin (HCC); Dysphagia as late effect of cerebrovascular accident (CVA); PEG (percutaneous endoscopic gastrostomy) status (HCC); Hyperlipidemia, unspecified hyperlipidemia type 07/06/2024 NH/SNF Visit [facility] Medical [facility] Post [address] [phone] Pat Knight PA Neurogenic orthostatic hypotension (HCC) (Primary Dx); History of stroke; Type 2 diabetes mellitus without complication, with long-term current use of insulin (HCC); Dysphagia as late effect of cerebrovascular accident (CVA); Urinary retention 07/01/2024 Documentation [facility] Medical [facility] Post [address] [phone] Percy Collins MD 06/30/2024 Orders Only [facility] [address] [place] [phone] Pat Knight PA 06/30/2024 NH/SNF Visit [facility] Post Acute Care [address] [phone] Pat Knight PA Dysphagia as late effect of cerebrovascular accident (CVA) (Primary Dx); Type 2 diabetes mellitus without complication, with long-term current use of insulin (HCC); Urinary retention 06/29/2024 1:00 PM TECHNOLOGY TEACHER - 06/29/2024 11:59 PM TECHNOLOGY TEACHER Hospital Encounter [facility] [address] [place] [address] Dysphagia as late effect of cerebrovascular accident (CVA) Discharge Disposition: Discharge to home or self care 06/29/2024 1:00 PM TECHNOLOGY TEACHER Therapy [facility] OP Speech Therapy [address] [address] Edson Talbert, JINRIKISHA DRIVER Dysphagia as late effect of cerebrovascular accident (CVA) (Primary Dx); Oropharyngeal dysphagia 06/28/2024 NH/SNF Visit [facility] Post [address] [phone] Pat Knight PA Type 2 diabetes mellitus without complication, with long-term current use of insulin (HCC) (Primary Dx); Neurogenic orthostatic hypotension (HCC); History of stroke 06/23/2024 NH/SNF Visit [facility] Post [address] [phone] Pat Knight PA Dysphagia as late effect of cerebrovascular accident (CVA) (Primary Dx); Neurogenic orthostatic hypotension (HCC); Urinary retention 06/22/2024 Orders Only [facility] Medical [facility] Post [address] [phone] Pat Knight PA Dysphagia as late effect of cerebrovascular accident (CVA) (Primary Dx) 06/21/2024 NH/SNF Visit [facility] Medical [facility] Post [address] [phone] Pat Knight PA Type 2 diabetes mellitus without complication, with long-term current use of insulin (HCC) (Primary Dx); History of stroke; Neurogenic orthostatic hypotension (HCC) 06/18/2024 NH/SNF Visit [facility] Medical [facility] Post Acute Care [address] [phone] Percy Collins MD Type 2 diabetes mellitus without complication, with long-term current use of insulin (HCC) (Primary Dx); PEG (percutaneous endoscopic gastrostomy) status (HCC); Neurogenic orthostatic hypotension (HCC); History of stroke 06/15/2024 NH/SNF Visit [facility] Medical Group Post [address] [phone] Percy Collins MD Hyperlipidemia, unspecified hyperlipidemia type (Primary Dx); Neurogenic orthostatic hypotension (HCC); Type 2 diabetes mellitus without complication, with long-term current use of insulin (HCC); PEG (percutaneous endoscopic gastrostomy) status (HCC); Dysphagia as late effect of cerebrovascular accident (CVA) 06/10/2024 NH/SNF Visit [facility] Medical [facility] Post [facility] Care [address] [phone] Percy Collins MD Neurogenic orthostatic hypotension (HCC) (Primary Dx); PEG (percutaneous endoscopic gastrostomy) status (HCC); Dysphagia as late effect of cerebrovascular accident (CVA); Hyperlipidemia, unspecified hyperlipidemia type; Type 2 diabetes mellitus without complication, with long-term current use of insulin (HCC); History of stroke 06/09/2024 9:03 AM TECHNOLOGY TEACHER - 06/09/2024 11:59 PM TECHNOLOGY TEACHER Hospital Encounter [facility] [address] [place] [address] Dysphagia as late effect of cerebrovascular accident (CVA) Discharge Disposition: Discharge to home or self care 06/09/2024 1:30 PM TECHNOLOGY TEACHER Therapy [facility] OP Speech Therapy [address] [address] Oksana Lei SLP History of stroke (Primary Dx); Dysphagia as late effect of cerebrovascular accident (CVA); PEG (percutaneous endoscopic gastrostomy) status (HCC) 06/08/2024 NH/SNF Visit [address] [phone] Pat Knight PA Type 2 diabetes mellitus without complication, with long-term current use of insulin (HCC) (Primary Dx); Dysphagia as late effect of cerebrovascular accident (CVA); History of stroke; Neurogenic orthostatic hypotension (HCC) 06/06/2024 NH/SNF Visit [address] [phone] Percy Collins MD History of stroke (Primary Dx); Hyperlipidemia, unspecified hyperlipidemia type; Type 2 diabetes mellitus without complication, with long-term current use of insulin (HCC); PEG (percutaneous endoscopic gastrostomy) status (HCC); Dysphagia as late effect of cerebrovascular accident (CVA); Urinary retention; Smoker; Vitamin D deficiency; Benign prostatic hyperplasia, unspecified whether lower urinary tract symptoms present; Orthostatic hypotension; Slow transit constipation 06/04/2024 Orders Only [facility] [address] [place] [phone] Tawny Batres NP 06/04/2024 NH/SNF Visit [address] [phone] Pat Knight PA Dysphagia as late effect of cerebrovascular accident (CVA) (Primary Dx); Type 2 diabetes mellitus without complication, with long-term current use of insulin (HCC); Neurogenic orthostatic hypotension (HCC) from Last 3 Months Allergies No [...] mg Take 2 tablets by mouth nightly 5 Active midodrine (PROAMATINE) 2.5 mg tabletIndication s:Symptomatic Orthostatic Hypotension Take 1 tablet (2.5 mg total) by mouth 2 (two) times a day before breakfast and dinner 60 tablet 5 Active Active Problems Problem Noted Date Diagnosed Date Pulmonary nodule 07/12/2024 Mild protein-calorie malnutrition 07/09/2024 Fall 07/08/2024 Hypotension 06/03/2024 Assessment & Plan (07/06/2024 11:09 AM TECHNOLOGY TEACHER): Hypotension has resolved, patient has not required use of midodrine. Midodrine discontinued. Continue to monitor Assessment & Plan (06/28/2024 1:34 PM TECHNOLOGY TEACHER): No further hypotensive episodes, patient denies dizziness with participation in therapy. Blood pressure was actually been higher. If this persists we will need to start an antihypertensive. Midodrine will remain on hold. Continue to monitor Assessment & Plan (06/23/2024 6:03 PM TECHNOLOGY TEACHER): Blood pressure has significantly improved. Midodrine has not been dosed due to hold parameters. We will place midodrine on hold. Monitor blood pressure Assessment & Plan (06/22/2024 9:07 AM TECHNOLOGY TEACHER): This is chronic but currently stable. We will continue midodrine 2.5 mg b.i.d.. Assessment & Plan (06/21/2024 6:18 PM TECHNOLOGY TEACHER): As patient's strength improves, blood pressure has rebounded. We will decrease midodrine to 2.5 mg b.i.d. with hold parameters in place. Assessment & Plan (06/20/2024 7:28 AM TECHNOLOGY TEACHER): This is chronic and currently stable. We will continue midodrine 10 mg b.i.d. Assessment & Plan (06/10/2024 2:44 PM TECHNOLOGY TEACHER): He had a witnessed episode of syncope [...] pressure. Assessment & Plan (06/08/2024 11:56 AM TECHNOLOGY TEACHER): Blood pressure has rebounded, we will place midodrine on hold Assessment & Plan (06/04/2024 10:30 PM TECHNOLOGY TEACHER): Blood pressure so far well controlled, patient currently asymptomatic. Continue scheduled midodrine 10 mg t.i.d.. Patient has not displayed any hypertensive episodes. Hold parameters in place Assessment & Plan (06/03/2024 1:36 PM TECHNOLOGY TEACHER): BP stable, mildly elevated. Is on Midodrine q8h to be held with MAP>80 per Neurology. History of stroke 06/03/2024 Assessment & Plan (07/06/2024 11:12 AM TECHNOLOGY TEACHER): Remains weak but is slowly making improvements with strength and endurance. Continue aspirin, atorvastatin, Plavix, blood pressure management. Assessment & Plan (06/28/2024 1:36 PM TECHNOLOGY TEACHER): No new neurologic changes, dysphagia persists although has improved. Modified barium swallow was postponed until tomorrow. Continue post stroke prophylaxis with aspirin, atorvastatin, Plavix, blood pressure management. Assessment & Plan (06/21/2024 6:20 PM TECHNOLOGY TEACHER): Right-sided weakness and some dysphagia, slowly improving with therapy modalities. Pain is controlled. Continue post stroke prophylaxis with Plavix, aspirin, atorvastatin, blood pressure management Assessment & Plan (06/10/2024 2:58 PM TECHNOLOGY TEACHER): This is chronic and stable. Please continue aspirin 81 mg, atorvastatin, Plavix. Assessment & Plan (06/08/2024 11:55 AM TECHNOLOGY TEACHER): With persistent right-sided weakness. Patient is participating well in therapy and is slowly making progress with strength and endurance. Continue post stroke prophylaxis with aspirin, atorvastatin, Plavix, blood pressure control Assessment & Plan (06/06/2024 8:45 AM TECHNOLOGY TEACHER): I endorse admission to correction care. The patient is at risk of [...] care. 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 Continue ASA, Statin, BP & DM control. PT/OT/ST to assess. Dysphagia as late effect of cerebrovascular acci dent (CVA) 06/03/2024 Assessment & Plan (07/06/2024 11:11 AM TECHNOLOGY TEACHER): Patient was made significant progress with his swallow function. Last week was upgraded to pureed solids with nectar thickened liquids and has been attempting to advance with speech therapy. Has not required tube feed for nutrition, was started on ensure enlive with each meal Assessment & Plan (06/30/2024 11:34 PM TECHNOLOGY TEACHER): Patient had modified barium swallow performed 06/29/2024 with the following recommendations: Puree solids and [place] thick liquids (initially with JINRIKISHA DRIVER advancing to PO diet per treating JINRIKISHA DRIVER recommendations) Medication Administration: per tube Compensatory Strategies/Modifications: Sit upright at 90' during all oral intake, Small bites, Small sips, and Dry swallow 2-3 time(s) between bites/sips Spoke with house JINRIKISHA DRIVER, is hopeful to advanced quickly as patient seemed to do very well with his swallow study. We will continue current tube feeds for now with Glucerna 1.2 calories 360 cc 5 times daily. Hopeful that patient's p.o. intake will improve quickly and we will be able to reassess nutritional status and need for further tube feed. Assessment & Plan (06/23/2024 6:08 PM TECHNOLOGY TEACHER): Working with JINRIKISHA DRIVER - patient was making good progress, tolerating ice chips. JINRIKISHA DRIVER requesting to repeat modified barium swallow which will be performed in a.m.. Tolerating current tube feeds with Glucerna 1.2 heidi 360 cc 5 times per day followed by 30 cc water flushes Assessment & Plan (06/08/2024 11:54 AM TECHNOLOGY TEACHER): Patient is now tolerating tube feeds well without nausea, abdominal pain, emesis. He is working hard with speech therapy, JINRIKISHA DRIVER reports that he has been tolerating all trials of liquids and pudding/applesauce. We will order repeat modified barium swallow per JINRIKISHA DRIVER request Assessment & Plan (06/04/2024 10:23 PM TECHNOLOGY TEACHER): Adjustment in tube feeds have significantly reduced GI symptoms. Continue Glucerna 1.2 calorie boluses 360cc , 5 times per day followed by a 30 cc water flush after each feeding. Speech therapy will continue to follow, we will monitor for improved strength with swallow. Assessment & Plan (06/03/2024 1:35 PM TECHNOLOGY TEACHER): PEG in place with bolus feeds. Not tolerating bolus feeds well currently per nursing. Have reduced water flush to 30ml after feeding, continue bolus feeding 5x/d but nursing can run over pump. Will monitor. JINRIKISHA DRIVER to follow. Urinary retention 06/03/2024 Assessment & Plan (07/06/2024 11:11 AM TECHNOLOGY TEACHER): Resolved, continue finasteride Assessment & Plan (06/30/2024 11:34 PM TECHNOLOGY TEACHER): Patient continues to void well, we will continue finasteride Assessment & Plan (06/23/2024 6:09 PM TECHNOLOGY TEACHER): Patient has been voiding without difficulty using urinal. Continue finasteride 5 mg daily Assessment & Plan (06/03/2024 1:29 PM TECHNOLOGY TEACHER): Noted in hospital. Etiology unknown. Likely s/t neurogenic. Will have staff bladder scan & monitor for need for ISC. PEG (percutaneous endoscopic gastrostomy) status 06/03/2024 Assessment & Plan (06/22/2024 9:07 AM TECHNOLOGY TEACHER): We will continue tube feedings for nutrition. I appreciate the input from speech therapy and the dietitian. Smoker 01/06/2019 Type 2 diabetes mellitus 03/09/2017 Assessment & Plan (07/08/2024 5:31 PM TECHNOLOGY TEACHER): Pending ER evaluation, continue insulin aspart, insulin glargine, metformin. Assessment & Plan (07/06/2024 11:09 AM TECHNOLOGY TEACHER): A1c 7.6, Accu-Cheks well controlled with rare use sliding scale. Continue Lantus 30 units q.h.s., metformin 1000 mg b.i.d. Assessment & Plan (06/30/2024 11:29 PM TECHNOLOGY TEACHER): Accu-Cheks ranging from 114-220 with a hemoglobin A1c of 7.6. Continue Lantus 30 units q.h.s., metformin 1000 mg b.i.d., sliding scale insulin with meals Assessment & Plan (06/28/2024 1:36 PM TECHNOLOGY TEACHER): A1c 7.6, Accu-Cheks ranging from 111-209. Continue metformin 1000 mg b.i.d., Lantus 30 units q.h.s., sliding scale insulin with meals Assessment & Plan (06/22/2024 9:07 AM TECHNOLOGY TEACHER): This is chronic but currently stable. We will continue to monitor point of care glucose and labs. We will continue aspirin, atorvastatin, insulin aspart, insulin glargine, and metformin. Assessment & Plan (06/21/2024 6:20 PM TECHNOLOGY TEACHER): A1c 7.6, Accu-Cheks 144-223 continue Lantus 30 units q.h.s., metformin 1000 mg b.i.d., sliding scale insulin with meals Assessment & Plan (06/20/2024 7:28 AM TECHNOLOGY TEACHER): This is chronic and stable. We will continue insulin aspart and insulin glargine. We will continue scripting of metformin. We will follow point of care glucose. Assessment & Plan (06/10/2024 2:58 PM TECHNOLOGY TEACHER): This is chronic and stable. Please continue metformin Assessment & Plan (06/08/2024 11:53 AM TECHNOLOGY TEACHER): A1c 7.6, Accu-Cheks ranging from 177 to 303. We will increase metformin to 1000 mg b.i.d., continue Lantus 30 units q.h.s. with sliding scale insulin t.i.d. a.c. Assessment & Plan (06/04/2024 10:28 PM TECHNOLOGY TEACHER): A1c 7.6, blood sugars ranging from 140-310. Continue Lantus 30 units q.h.s., sliding scale insulin t.i.d., metformin 500 mg b.i.d.. If blood sugars remain elevated we will consider increasing metformin dose Assessment & Plan (06/03/2024 1:40 PM TECHNOLOGY TEACHER): A1c ordered in am. Continue insulin + Metformin currently & Monitor BS. Hyperlipidemia 03/09/2017 Assessment & Plan (07/08/2024 5:34 PM TECHNOLOGY TEACHER): Chronic, stable. Continue atorvastatin Assessment & Plan (06/20/2024 7:28 AM TECHNOLOGY TEACHER): This is chronic and stable. We will continue atorvastatin 80 mg daily Assessment & Plan (06/10/2024 2:57 PM TECHNOLOGY TEACHER): This is chronic and stable. Please continue atorvastatin Resolved Problems Problem Noted Date Diagnosed Date Resolved Date Syncope and collapse 07/08/2024 025 Assessment & Plan (07/08/2024 5:32 PM TECHNOLOGY TEACHER): He experienced an unwitnessed fall. The therapist [...] uit: Not Asked; Counseling Given: Not Answered [facility] Utilities Answer Date Recorded In the past 12 months has th e electric, gas, oil, or water company threatened to shut off services in your [...] often do you attend chur ch or samaritan services? Never 07/09/2024 Do you belong to any clubs o r organizations such as bahai groups, unions, fraternal or athletic groups, or [...] any time in the past 12 m [facility], were you homeless or living in a group home (including now)? No 07/09/2024 Personal Safety Answer Date Recorded Have you ever been in or are you currently in a harmful physical or emotional relationship or is someone making you feel afraid or unsafe? 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 file Not on file Not on libra e Last Filed Vital Signs Vital Sign Reading Time Taken Comments Blood Pressure 145/105 07/13/2024 11:04 AM TECHNOLOGY TEACHER Pulse 92 07/13/2024 11:04 AM TECHNOLOGY TEACHER Temperature 36.4 C (97.5 F) 07/13/2024 11:04 AM TECHNOLOGY TEACHER Respiratory Rate 18 07/13/2024 11:04 AM TECHNOLOGY TEACHER Oxygen Saturation 98% 07/13/2024 11:04 AM TECHNOLOGY TEACHER Inhaled Oxygen Concentration - - Weight 75.3 kg (166 lb 0.1 oz) 07/12/2024 5:00 A M TECHNOLOGY TEACHER Height 180.3 cm (5' 11 ) 07/08/2024 8:00 PM TECHNOLOGY TEACHER Body Mass Index 23.15 07/08/2024 8:00 PM TECHNOLOGY TEACHER Plan of Treatment Not on file Procedures Procedure Name Priority Date/Time Associated Diagnosis Comments POCT GLUCOSE DEVICE Routine 07/13/2024 12:00 PM TECHNOLOGY TEACHER POCT GLUCOSE DEVICE Routine 07/13/2024 8 :09 AM TECHNOLOGY TEACHER POCT GLUCOSE DEVICE Routine 07/12/2024 7 :48 PM TECHNOLOGY TEACHER POCT GLUCOSE DEVICE Routine 07/12/2024 4 :59 PM TECHNOLOGY TEACHER POCT GLUCOSE DEVICE Routine 07/12/2024 11:48 AM TECHNOLOGY TEACHER POCT GLUCOSE DEVICE Routine 07/12/2024 7 :39 AM TECHNOLOGY TEACHER POCT GLUCOSE DEVICE Routine 07/11/2024 8 :03 PM TECHNOLOGY TEACHER POCT GLUCOSE DEVICE Routine 07/11/2024 5 :26 PM TECHNOLOGY TEACHER POCT GLUCOSE DEVICE Routine 07/11/2024 1 :26 PM TECHNOLOGY TEACHER POCT GLUCOSE DEVICE Routine 07/11/2024 11:41 AM TECHNOLOGY TEACHER POCT GLUCOSE DEVICE Routine 07/11/2024 8 :04 AM TECHNOLOGY TEACHER POCT GLUCOSE DEVICE Routine 07/10/2024 7 :48 PM TECHNOLOGY TEACHER POCT GLUCOSE DEVICE Routine 07/10/2024 5 :34 PM TECHNOLOGY TEACHER POCT GLUCOSE DEVICE Routine 07/10/2024 1 :08 PM TECHNOLOGY TEACHER POCT GLUCOSE DEVICE Routine 07/10/2024 12:10 PM TECHNOLOGY TEACHER POCT GLUCOSE DEVICE Routine 07/10/2024 8 :04 AM TECHNOLOGY TEACHER POCT GLUCOSE DEVICE Routine 07/09/2024 8 :17 PM TECHNOLOGY TEACHER POCT GLUCOSE DEVICE Routine 07/09/2024 5 :18 PM TECHNOLOGY TEACHER CTA HEAD NECK W WO CONTRAST IP Routine 07/09/2024 3:57 PM TECHNOLOGY TEACHER POCT GLUCOSE DEVICE Routine 07/09/2024 1 :03 PM TECHNOLOGY TEACHER EEG Routine 07/09/2024 12:34 PM TECHNOLOGY TEACHER POCT GLUCOSE DEVICE Routine 07/09/2024 11:29 AM TECHNOLOGY TEACHER POCT GLUCOSE DEVICE Routine 07/09/2024 7 :40 AM TECHNOLOGY TEACHER EGFR Routine 07/09/2024 3:25 AM TECHNOLOGY TEACHER DIFFERENTIAL AUTO Routine 07/09/2024 3:2 5 AM TECHNOLOGY TEACHER BASIC METABOLIC PANEL Routine 07/09/2024 3:25 AM TECHNOLOGY TEACHER CBC WITH AUTO DIFFERENTIAL Routine 07/09/2024 3:25 AM TECHNOLOGY TEACHER POCT GLUCOSE DEVICE Routine 07/08/2024 8 :10 PM TECHNOLOGY TEACHER SEPSIS LACTATE WITH REFLEX Timed 07/08/2024 8:03 PM TECHNOLOGY TEACHER TROPONIN T HIGH-SENSITIVITY 6-HOUR Timed 07/08/2024 8:03 PM TECHNOLOGY TEACHER TROPONIN T HIGH-SENSITIVITY 4-HR Timed 07/08/2024 5:59 PM TECHNOLOGY TEACHER URINALYSIS, MICROSCOPIC ONLY STAT 07/08/2024 4:20 PM TECHNOLOGY TEACHER URINE CULTURE STAT 07/08/2024 4:20 PM TECHNOLOGY TEACHER URINALYSIS AND REFLEX TO MICROSCOPIC AND CULTURE STAT 07/08/2024 4:20 PM TECHNOLOGY TEACHER SEPSIS LACTATE WITH REFLEX Timed 07/08/2024 4:19 PM TECHNOLOGY TEACHER TROPONIN T HIGH-SENSITIVITY 2-HOUR Timed 07/08/2024 3:36 PM TECHNOLOGY TEACHER PROTIME-INR STAT 07/08/2024 1:34 PM TECHNOLOGY TEACHER SEPSIS LACTATE WITH REFLEX STAT 07/08/2024 1:[address] HEAD WO CONTRAST ED 07/08/2024 1 :31 PM TECHNOLOGY TEACHER XR CHEST 1 VIEW ED 07/08/2024 1:30 PM TECHNOLOGY TEACHER EGFR STAT 07/08/2024 1:04 PM TECHNOLOGY TEACHER DIFFERENTIAL AUTO STAT 07/08/2024 1:0 4 PM TECHNOLOGY TEACHER TROPONIN T HIGH-SENSITIVITY SERIES (BASELINE, 2HR, 4HR, 6HR) STAT 07/08/2024 1:04 PM TECHNOLOGY TEACHER COMPREHENSIVE METABOLIC PANEL STAT 07/08/2024 1:04 PM TECHNOLOGY TEACHER CBC WITH AUTO DIFFERENTIAL STAT 07/08/2024 1:04 PM TECHNOLOGY TEACHER ECG 12-LEAD STAT 07/08/2024 12:50 PM TECHNOLOGY TEACHER EGFR Routine 06/30/2024 5:40 AM TECHNOLOGY TEACHER COMPREHENSIVE METABOLIC PANEL Routine 06/30/2024 5:40 AM TECHNOLOGY TEACHER CBC WITHOUT DIFFERENTIAL Routine 06/30/2024 5:40 AM TECHNOLOGY TEACHER FL MODIFIED BARIUM SWALLOW W VIDEO Schedule Routine, Read Routine (OP Routine) 06/29/2024 2:01 PM TECHNOLOGY TEACHER Dysphagia as late effect of cerebrovascular accident (CVA) CBC WITHOUT DIFFERENTIAL Routine 06/14/2024 5:44 AM TECHNOLOGY TEACHER FL MODIFIED BARIUM SWALLOW W VIDEO Schedule Routine, Read Routine (OP Routine) 06/09/2024 2:28 PM TECHNOLOGY TEACHER Dysphagia as late effect of cerebrovascular accident (CVA) EGFR Routine 06/08/2024 8:31 AM TECHNOLOGY TEACHER COMPREHENSIVE METABOLIC PANEL Routine 06/08/2024 8:31 AM TECHNOLOGY TEACHER CBC WITHOUT DIFFERENTIAL Routine 06/08/2024 8:31 AM TECHNOLOGY TEACHER EGFR Routine 06/04/2024 4:21 PM TECHNOLOGY TEACHER COMPREHENSIVE METABOLIC PANEL Routine 06/04/2024 4:21 PM TECHNOLOGY TEACHER MAGNESIUM Routine 06/04/2024 4:21 PM TECHNOLOGY TEACHER PHOSPHORUS Routine 06/04/2024 4:21 PM TECHNOLOGY TEACHER HEMOGLOBIN A1C Routine 06/04/2024 4:21 PM TECHNOLOGY TEACHER CBC WITHOUT DIFFERENTIAL Routine 06/04/2024 4:21 PM TECHNOLOGY TEACHER from Last 3 Months Results * POCT glucose (07/13/2024 12:00 PM TECHNOLOGY TEACHER) Glucose, POC 172 70 - 199 mg/dL Glucose comment 1 Use This Result [facility] Blood 07/13/2024 12:0 0 PM TECHNOLOGY TEACHER 07/13/2024 12:00 PM TECHNOLOGY TEACHER us Vignesh Lopez MD LAB POCT ORDERABLES - DEV ICE Final Result Performing Organization Address [facility] Co de Phone Number [address] [place] [address] * (ABNORMAL) POCT glucose (07/13/2024 8:09 AM TECHNOLOGY TEACHER) Glucose, POC 213(H) 70 - 199 mg/dL Glucose comment 1 Use This Result [facility] Glucose comment 2 RN/MD Notified [facility] Blood 07/13/2024 8:09 AM TECHNOLOGY TEACHER 07/13/2024 8:09 AM TECHNOLOGY TEACHER Vignesh Lopez MD LAB POCT ORDERABLES - DEV ICE Final Result Performing Organization Address City/[facility]/ZIP Co de Phone Number [address] [place] [address] * (ABNORMAL) POCT glucose (07/12/2024 7:48 PM TECHNOLOGY TEACHER) Glucose, POC 326(H) 70 - 199 mg/dL Glucose comment 1 Use This Result [facility] Glucose comment 2 RN/MD Notified [facility] Blood 07/12/2024 7:48 PM TECHNOLOGY TEACHER 07/12/2024 7:48 PM TECHNOLOGY TEACHER us Leilani Resendiz MD LAB POCT ORDERABLES - DEVICE Fin al Result Performing Organization Address [facility] Co de Phone Number [address] [place] [address] * (ABNORMAL) POCT glucose (07/12/2024 4:59 PM TECHNOLOGY TEACHER) Glucose, POC 217(H) 70 - 199 mg/dL Blood 07/12/2024 4:59 PM TECHNOLOGY TEACHER 07/12/2024 4:59 PM TECHNOLOGY TEACHER Leilani Resendiz MD LAB POCT ORDERABLES - DEVICE Fin al Result Performing Organization Address [facility] Co de Phone Number [address] [place] [address] * (ABNORMAL) POCT glucose (07/12/2024 11:48 AM TECHNOLOGY TEACHER) Glucose, POC 317(H) 70 - 199 mg/dL Blood 07/12/2024 11:4 8 AM TECHNOLOGY TEACHER 07/12/2024 11:48 AM TECHNOLOGY TEACHER Leilani Resendiz MD LAB POCT ORDERABLES - DEVICE Fin al Result Performing Organization Address [facility] Co de Phone Number [address] [place] [address] * (ABNORMAL) POCT glucose (07/12/2024 7:39 AM TECHNOLOGY TEACHER) Glucose, POC 224(H) 70 - 199 mg/dL Blood 07/12/2024 7:39 AM TECHNOLOGY TEACHER 07/12/2024 7:39 AM TECHNOLOGY TEACHER Leilani Resendiz MD LAB POCT ORDERABLES - DEVICE Fin al Result Performing Organization Address [facility] Co de Phone Number [address] [place] [address] * (ABNORMAL) POCT glucose (07/11/2024 8:03 PM TECHNOLOGY TEACHER) Glucose, POC 326(H) 70 - 199 mg/dL Glucose comment 1 Use This Result [facility] Blood 07/11/2024 8:03 PM TECHNOLOGY TEACHER 07/11/2024 8:03 PM TECHNOLOGY TEACHER Leilani Resendiz MD LAB POCT ORDERABLES - DEVICE Fin al Result Performing Organization Address [facility] Co de Phone Number KARL [address] [place] [address] * (ABNORMAL) POCT glucose (07/11/2024 5:26 PM TECHNOLOGY TEACHER) Glucose, POC 325(H) 70 - 199 mg/dL Blood 07/11/2024 5:26 PM TECHNOLOGY TEACHER 07/11/2024 5:26 PM TECHNOLOGY TEACHER Leilani Resendiz MD LAB POCT ORDERABLES - DEVICE Fin al Result Performing Organization Address [facility] Co de Phone Number [address] [place] [address] * (ABNORMAL) POCT glucose (07/11/2024 1:26 PM TECHNOLOGY TEACHER) Glucose, POC 283(H) 70 - 199 mg/dL Blood 07/11/2024 1:26 PM TECHNOLOGY TEACHER 07/11/2024 1:26 PM TECHNOLOGY TEACHER Leilani Resendiz MD LAB POCT ORDERABLES - DEVICE Fin al Result Performing Organization Address [facility] Co de Phone Number [address] [place] [address] * (ABNORMAL) POCT glucose (07/11/2024 11:41 AM TECHNOLOGY TEACHER) Glucose, POC 366(H) 70 - 199 mg/dL Glucose comment 1 Use This Result [facility] Glucose comment 2 RN/MD Notified [facility] Blood 07/11/2024 11:4 1 AM TECHNOLOGY TEACHER 07/11/2024 11:41 AM TECHNOLOGY TEACHER Leilani Resendiz MD LAB POCT ORDERABLES - DEVICE Fin al Result Performing Organization Address [facility] Co de Phone Number [address] [place] [address] * (ABNORMAL) POCT glucose (07/11/2024 8:04 AM TECHNOLOGY TEACHER) Glucose, POC 264(H) 70 - 199 mg/dL Blood 07/11/2024 8:04 AM TECHNOLOGY TEACHER 07/11/2024 8:04 AM TECHNOLOGY TEACHER Result [facility] Leilani Resendiz MD LAB POCT ORDERABLES - DEVICE Fin al Result Performing Organization Address [facility] de Phone Number [address] [place] [address] * (ABNORMAL) POCT glucose (07/10/2024 7:48 PM TECHNOLOGY TEACHER) Glucose, POC 281(H) 70 - 199 mg/dL Glucose comment 1 Use This Result [facility] Blood 07/10/2024 7:48 PM TECHNOLOGY TEACHER 07/10/2024 7:48 PM TECHNOLOGY TEACHER Result [facility] Leilani Resendiz MD LAB POCT ORDERABLES - DEVICE Fin al Result Performing Organization Address [facility] Co de Phone Number [address] [place] [address] * (ABNORMAL) POCT glucose (07/10/2024 5:34 PM TECHNOLOGY TEACHER) Glucose, POC 366(H) 70 - 199 mg/dL Blood 07/10/2024 5:34 PM TECHNOLOGY TEACHER 07/10/2024 5:34 PM TECHNOLOGY TEACHER Result [facility] us Leilani Resendiz MD LAB POCT ORDERABLES - DEVICE Fin al Result Performing Organization Address [facility] Co de Phone Number [address] [place] [address] * (ABNORMAL) POCT glucose (07/10/2024 1:08 PM TECHNOLOGY TEACHER) Glucose, POC 294(H) 70 - 199 mg/dL Blood 07/10/2024 1:08 PM TECHNOLOGY TEACHER 07/10/2024 1:08 PM TECHNOLOGY TEACHER Leilani Resendiz MD LAB POCT ORDERABLES - DEVICE Fin al Result Performing Organization Address [facility] Co de Phone Number [address] [place] [address] * (ABNORMAL) POCT glucose (07/10/2024 12:10 PM TECHNOLOGY TEACHER) Glucose, POC 332(H) 70 - 199 mg/dL Glucose comment 1 RN/MD Notified [facility] Blood 07/10/2024 12:1 0 PM TECHNOLOGY TEACHER 07/10/2024 12:10 PM TECHNOLOGY TEACHER Leilani Resendiz MD LAB POCT ORDERABLES - DEVICE Fin al Result Performing Organization Address [facility] de Phone Number [address] [place] [address] * (ABNORMAL) POCT glucose (07/10/2024 8:04 AM TECHNOLOGY TEACHER) Glucose, POC 269(H) 70 - 199 mg/dL Blood 07/10/2024 8:04 AM TECHNOLOGY TEACHER 07/10/2024 8:04 AM TECHNOLOGY TEACHER Leilani Resendiz MD LAB POCT ORDERABLES - DEVICE Fin al Result Performing Organization Address [facility] Co de Phone Number [address] [place] [address] * (ABNORMAL) POCT glucose (07/09/2024 8:17 PM TECHNOLOGY TEACHER) Glucose, POC 387(H) 70 - 199 mg/dL Blood 07/09/2024 8:17 PM TECHNOLOGY TEACHER 07/09/2024 8:17 PM TECHNOLOGY TEACHER Leilani Resendiz MD LAB POCT ORDERABLES - DEVICE Fin al Result Performing Organization Address City/[facility] Co de Phone Number KARL [address] [place] [address] * (ABNORMAL) POCT glucose (07/09/2024 5:18 PM TECHNOLOGY TEACHER) Glucose, POC 275(H) 70 - 199 mg/dL Glucose comment 1 Use This Result [facility] Blood 07/09/2024 5:18 PM TECHNOLOGY TEACHER 07/09/2024 5:18 PM TECHNOLOGY TEACHER Result [facility] Leilani Resendiz MD LAB POCT ORDERABLES - DEVICE Fin al Result Performing Organization Address [facility] de Phone Number KARL [address] [address] * CTA Head Neck W WO Contrast (07/09/2024 3:57 PM TECHNOLOGY TEACHER) Anatomical Region Laterality Modality Head and Neck N/A Computed Tomogra phy 07/09/2024 4:24 PM TECHNOLOGY TEACHER Narrative 07/09/2024 8:21 PM TECHNOLOGY TEACHER EXAM DESCRIPTION: CTA HEAD NECK W WO [...] OTHER: No other significant abnormality. INTRACRANIAL VESSELS [place] OF [place]: The cervical internal carotid arteries [...] by Sanjuanita Cleveland M.D. T: Report ID: [id number] Reading Location: [place] [id number] Procedure Note Colette Cleveland MD - 07/09/2024 [...] OTHER: No other significant abnormality. INTRACRANIAL VESSELS [place] OF [place]: The cervical internal carotid arteries [...] by Sanjuanita Cleveland M.D. T: Report ID: [id number] Reading Location: [id number] Leilani Resendiz MD IMG CT PROCEDURES Final Result * (ABNORMAL) POCT glucose (07/09/2024 1:03 PM TECHNOLOGY TEACHER) Glucose, POC 215(H) 70 - 199 mg/dL Glucose comment 1 Use This Result [facility] Blood 07/09/2024 1:03 PM TECHNOLOGY TEACHER 07/09/2024 1:03 PM TECHNOLOGY TEACHER Leilani Resendiz MD LAB POCT ORDERABLES - DEVICE Fin al Result [facility] Department [place] [address] * EEG (07/09/2024 12:34 PM TECHNOLOGY TEACHER) Anatomical Region Laterality Modality Other Narrative 07/09/2024 12:46 PM TECHNOLOGY TEACHER Hilario Gilmore MD 07/09/2024 12:46 PM Reason [...] * (ABNORMAL) POCT glucose (07/09/2024 11:29 AM TECHNOLOGY TEACHER) Glucose, POC 284(H) 70 - 199 mg/dL Glucose comment 1 Use This Result [facility] Blood 07/09/2024 11:2 9 AM TECHNOLOGY TEACHER 07/09/2024 11:29 AM TECHNOLOGY TEACHER Result [facility] us Leilani Resendiz MD LAB POCT ORDERABLES - DEVICE Fin al Result Performing Organization Address [facility] de Phone Number [address] [place] [address] * POCT glucose (07/09/2024 7:40 AM TECHNOLOGY TEACHER) Pathologist [facility] Glucose, POC 147 70 - 199 mg/dL Glucose comment 1 Use This Result [facility] Blood 07/09/2024 7:40 AM TECHNOLOGY TEACHER 07/09/2024 7:40 AM TECHNOLOGY TEACHER Result [facility] Leilani Resendiz MD LAB POCT ORDERABLES - DEVICE Fin al Result Performing Organization Address [facility] de Phone Number [address] [place] [address] * eGFR (07/09/2024 3:25 AM TECHNOLOGY TEACHER) Pathologist [facility] eGFR >90 >=60 mL/min/1. 73 m2 Comment: [...] last reviewed 2021. Blood 07/09/2024 3:25 AM TECHNOLOGY TEACHER 07/09/2024 3:29 AM TECHNOLOGY TEACHER Leilani Resendiz MD LAB BLOOD ORDERABLES Final Resul t [place] [id number] [facility] Department [place] [address] * (ABNORMAL) Differential, auto (07/09/2024 3:25 AM TECHNOLOGY TEACHER) Neutrophil abs 5.5 1.5 - 6.5 K/cumm Imm gran abs 0.0 0.0 - 0.1 K/cumm [facility] Lymphocyte abs 1.6 0.8 - 3.3 K/cumm [facility] Monocyte abs 0.9(H) 0.2 - 0.8 K/cumm [facility] Eosinophil abs 0.3 0.0 - 0.5 K/cumm [facility] Basophil abs 0.1 0.0 - 0.1 K/cumm [facility] Neutrophil pct 65.0 % [facility] Comment: Interpretive Data Percent cell count reference ranges are not reported, since discordance with absolute values may lead to misinterpretation of CBC data. Current Interpretive Data was last revised on 2017. Imm gran pct 0.5 % [facility] Comment: Interpretive Data Percent cell count reference ranges are not reported, since discordance with absolute values may lead to misinterpretation of CBC data. Current Interpretive Data was last revised on 2017. Lymphocyte pct 18.4 % [facility] Comment: Interpretive Data Percent cell count reference ranges are not reported, since discordance with absolute values may lead to misinterpretation of CBC data. Current Interpretive Data was last revised on 2017. Monocyte pct 11.1 % [facility] Comment: Interpretive Data Percent cell count reference ranges are not reported, since discordance with absolute values may lead to misinterpretation of CBC data. Current Interpretive Data was last revised on 2017. Eosinophil pct 3.8 % [facility] Comment: Interpretive Data Percent cell count reference ranges are not reported, since discordance with absolute values may lead to misinterpretation of CBC data. Current Interpretive Data was last revised on 2017. Basophil pct 1.2 % [facility] Comment: Interpretive Data Percent cell count reference ranges are not reported, since discordance with absolute values may lead to misinterpretation of CBC data. Current Interpretive Data was last revised on 2017. Blood 07/09/2024 3:25 AM TECHNOLOGY TEACHER 07/09/2024 3:29 AM TECHNOLOGY TEACHER Leilani Resendiz MD LAB BLOOD ORDERABLES Final Resul t [facility] [address] [facility] Department of Laboratories [place], [place] [id number] * (ABNORMAL) CBC with auto differential (07/09/2024 3:25 AM TECHNOLOGY TEACHER) WBC 8.5 3.8 - 9.9 K/cumm Hgb 14.1 13.0 - 17.5 g/dL [facility] Hct 43.7 38.9 - 50.3 % [facility] Plt 214 150 - 400 K/cumm [facility] MPV 11.7 9.1 - 12.3 fL [facility] RBC 4.59 4.30 - 5.80 M/cumm [facility] MCV 95.2 81.3 - 96.4 fL [facility] MCH 30.7 27.1 - 33.3 pg [facility] MCHC 32.3 32.3 - 35.7 g/dL [facility] RDW CV 13.9 11.1 - 14.9 % [facility] RDW SD 48.3(H) 35.7 - 48.1 fL [facility] NRBC abs 0.00 0.00 - 0.01 K/cumm [facility] Blood 07/09/2024 3:25 AM TECHNOLOGY TEACHER 07/09/2024 3:29 AM TECHNOLOGY TEACHER Leilani Resendiz MD LAB BLOOD ORDERABLES Final Resul t Performing Organization Address [facility] de Phone Number [address] [place] [address] * Basic metabolic panel (07/09/2024 3:25 AM TECHNOLOGY TEACHER) Pathologist [facility] Sodium 138 135 - 145 mmol/L Potassium, pl 4.1 3.3 - 4.9 mmol/L [facility] Chloride 102 97 - 110 mmol/L [facility] CO2 26 22 - 32 mmol/L [facility] Anion gap 10 2 - 15 mmol/L [facility] BUN 14 6 - 25 mg/dL [facility] Creatinine 0.81 0.80 - 1.30 mg/dL [facility] Glucose 152 70 - 199 mg/dL [facility] Comment: Interpretive Data Fasting glucose >/= [...] Calcium 9.8 8.5 - 10.3 mg/dL [facility] Blood 07/09/2024 3:25 AM TECHNOLOGY TEACHER 07/09/2024 3:29 AM TECHNOLOGY TEACHER Leilani Resendiz MD LAB BLOOD ORDERABLES Final Resul t Performing Organization Address [facility] Co de Phone Number [address] [place] [address] * POCT glucose (07/08/2024 8:10 PM TECHNOLOGY TEACHER) Glucose, POC 96 70 - 199 mg/dL Glucose comment 1 RN/MD Notified [facility] Blood 07/08/2024 8:10 PM TECHNOLOGY TEACHER 07/08/2024 8:10 PM TECHNOLOGY TEACHER Leilani Resendiz MD LAB POCT ORDERABLES - DEVICE Fin al Result Performing Organization Address City/[facility]/ZIP Co de Phone Number [address] [address] * Troponin T high-sensitivity 6-hour (07/08/2024 8:03 PM TECHNOLOGY TEACHER) [facility] Trop T hs 13 <=22 ng/L Comment: Interpretive Data For further hscTnT resources including the diagnostic algorithm and an aid in interpretation, copy and paste this link: https://nrl.testcatalog.org/show/hsTrop Current Interpretive Data last revised 2020. Trop T hs delta -3 ng/L [facility] Trop T hs interp Insignificant [facility] Blood 07/08/2024 8:03 PM TECHNOLOGY TEACHER 07/08/2024 8:07 PM TECHNOLOGY TEACHER Lorraine Dumont MD LAB BLOOD ORDERABLES Final Resu lt Performing Organization Address [facility]/ZIP Co de Phone Number [address] [place] [address] * Sepsis Lactate w/ Reflex (07/08/2024 8:03 PM TECHNOLOGY TEACHER) [facility] Sepsis Lactate 1.4 0.7 - 2.0 mmol/L Blood 07/08/2024 8:03 PM TECHNOLOGY TEACHER 07/08/2024 8:07 PM TECHNOLOGY TEACHER Lizet Sotelo MD LAB BLOOD ORDERABLES F inal Result Performing Organization Address City/[facility]/ZIP Co de Phone Number [address] [place] [address] * Troponin T high-sensitivity 4-hour (07/08/2024 5:59 PM TECHNOLOGY TEACHER) Trop T hs 11 <=22 ng/L Comment: Interpretive Data For further hscTnT resources including the diagnostic algorithm and an aid in interpretation, copy and paste this link: https://nrl.testcatalog.org/show/hsTrop Current Interpretive Data last revised 2020. Trop T hs delta -5 ng/L [facility] Trop T hs interp Equivocal [facility] Blood 07/08/2024 5:59 PM TECHNOLOGY TEACHER 07/08/2024 6:01 PM TECHNOLOGY TEACHER us Rehab Tim MATHIAS LAB BLOOD ORDERABLES Final Resu lt [facility] [address] [facility] Department [place] [address] * (ABNORMAL) Urinalysis reflex to microscopic and culture Urine, in and out catheter (07/08/2024 4:20PM TECHNOLOGY TEACHER) Color, ur Yellow Yellow Clarity, ur Cloudy(A) Clear [facility] Specific gravity, ur 1.018 1.003 - 1.030 [facility] pH, urine 6.0 [facility] Comment: Interpretive Data U rine pH is affected by diet, medications, systemic acid-base disturbances, and renal tubular function. pH may affect urinary stone formation. For example, urine pH below 6.0 may help reduce the tendency for calcium phosphate stones and pH greater than 6.0 may reduce the tendency for uric acid stone formation. Source: [facility] Current Interpretive Data was last revised on 2017 Protein, ur ql 1+(A) Negative [facility] Glucose, ur ql Negative Negative [facility] Ketones, ur Negative Negative [facility] Bilirubin, ur Negative Negative [facility] Blood, ur Negative Negative [facility] Urobilinogen, ur 2.0(A) <2.0 mg/dL [facility] Nitrite, ur Positive(A) Negative [facility] Leukocyte esterase, ur 4+(A) Negative [facility] UA reflex comment Reflex to microscopic UA will be performed. [facility] Urine, in and out catheter 07/08/2024 4:20 PM TECHNOLOGY TEACHER 07/08/2024 4:25 PM TECHNOLOGY TEACHER Lizet Sotelo MD LAB MICROBIOLOGY - GEN ERAL ORDERABLES Final Result Performing Organization Address [facility] Co de Phone Number KARL [address] [address] * (ABNORMAL) Urinalysis, microscopic only (07/08/2024 4:20 PM TECHNOLOGY TEACHER) WBC, ur >50(A) 0 - 5 /HPF RBC, ur 6-10(A) 0 - 2 /HPF [facility] Bacteria, ur 4+(A) [facility] Mucous, ur Present(A) [facility] Culture Reflex Comment Reflex to urine culture will be performed. [facility] Urine, in and out catheter 07/08/2024 4:20 PM TECHNOLOGY TEACHER 07/08/2024 4:25 PM TECHNOLOGY TEACHER Lizet Sotelo MD LAB URINE ORDERABLES F inal Result Performing Organization Address [facility] Co de Phone Number KARL [address] [place] [address] * (ABNORMAL) Urine culture Urine, in and out catheter (07/08/2024 4:20 PM TECHNOLOGY TEACHER) Report Final Report: Greater than or equal to 100,000 colonies/mL of Klebsiella pneumoniae Greater than or equal to 100,000 colonies/mL of Klebsiella pneumoniae #2 (.) Comment:Testing performed by : [facility], [address] [facility], [place]., [address] Organism KLEBSIELLA PNEUMONIAE [facility] Organism KLEBSIELLA PNEUMONIAE [facility] Urine, in and out catheter 07/08/2024 4:20 PM TECHNOLOGY TEACHER 07/08/2024 8:01 PM TECHNOLOGY TEACHER Narrative [facility] - 07/10/2024 3:41 PM TECHNOLOGY TEACHER Urine culture reflexed based upon urinalysis results. Testing performed by [facility] ([phone]) Organism Antibiotic Method Susceptibility Klebsiella pneumoniae Ampicillin [...] ERAL ORDERABLES Final Result Performing Organization Address City/[facility] Co de Phone Number [address]RY[address] [employer] [place], [place] [id number] * (ABNORMAL) Sepsis Lactate w/ Reflex (07/08/2024 4:19 PM TECHNOLOGY TEACHER) [facility] Sepsis Lactate 3.2(C) 0.7 - 2.0 mmol/L Comment:Critical Result call ed to and read back by [id number], DATE: 2024-07-08 16:56:38 BY: [id number] Blood 07/08/2024 4:19 PM TECHNOLOGY TEACHER 07/08/2024 4:25 PM TECHNOLOGY TEACHER Lizet Sotelo MD LAB BLOOD ORDERABLES F inal Result Performing Organization Address City/[facility] Co de Phone Number [address] [employer] [place], [place] [id number] * Troponin T high-sensitivity 2-hour (07/08/2024 3:36 PM TECHNOLOGY TEACHER) [facility] Trop T hs 14 <=22 ng/L Comment: Interpretive Data For further hscTnT resources including the diagnostic algorithm and an aid in interpretation, copy and paste this link: https://nrl.testcatalog.org/show/hsTrop Current Interpretive Data last revised 2020. Trop T hs delta -2 ng/L [facility] Trop T hs interp Insignificant [facility] Blood 07/08/2024 3:36 PM TECHNOLOGY TEACHER 07/08/2024 3:41 PM TECHNOLOGY TEACHER Lorraine Dumont MD LAB BLOOD ORDERABLES Final Resu lt [facility] [address] [facility] Department [place] [address] * (ABNORMAL) Sepsis Lactate w/ Reflex (07/08/2024 1:34 PM TECHNOLOGY TEACHER) Sepsis Lactate 3.5(C) 0.7 - 2.0 mmol/L Comment:Critical Result call ed to and read back by [id number], DATE: 2024-07-08 14:05:44 BY: [id number] Blood 07/08/2024 1:34 PM TECHNOLOGY TEACHER 07/08/2024 1:36 PM TECHNOLOGY TEACHER Lizet Sotelo MD LAB BLOOD ORDERABLES F inal Result Performing Organization Address City/[facility]/ZIP Co de Phone Number [facility] [address] [facility] Department [place] [address] * Protime-INR (07/08/2024 1:34 PM TECHNOLOGY TEACHER) PT 12.9 12.0 - 14.6 sec INR 1.0 0.9 - 1.2 [facility] Comment: Ref Range High Interpretive data Oral anticoagulant therapeutic ranges: Venous thromboembolism prophylaxis or treatment: 2.0-3.0 CARDIOLOGY Standard range: 2.0-3.0 High-intensity range: 2.5-3.5 Refer to indication-specific guidelines for appropriate target ranges for prosthetic heart valve replacement. Current interpretive data was last revised on 2019. Blood 07/08/2024 1:34 PM TECHNOLOGY TEACHER 07/08/2024 1:36 PM TECHNOLOGY TEACHER us Lizet Sotelo MD LAB BLOOD ORDERABLES F inal Result [facility] [address] [facility] Department [place] [address] * CT Head WO Contrast (07/08/2024 1:31 PM TECHNOLOGY TEACHER) Anatomical Region Laterality Modality Head and Neck N/A Computed Tomogra phy 07/08/2024 1:41 PM TECHNOLOGY TEACHER Narrative 07/08/2024 1:44 PM TECHNOLOGY TEACHER EXAM DESCRIPTION: CT HEAD WO CONTRAST REASON [...] well-developed and well aerated. Debris in the [id number]-left EACs. ORBITS: No acute abnormality. Right stillaguamish ocular lens replaced. OTHER: No other significant abnormality. IMPRESSION: No acute intracranial process with chronic findings as above. THIS IS AN ELECTRONICALLY VERIFIED FINAL REPORT 07/08/2024 1:44 PM - Electronically signed by Mike OLIVEIRA T: Report ID: [id number] Reading Location: [place] [address] Procedure Note Mike Madera MD - 07/08/2024 [...] portions of CT soft tissue neck with ieythmgb77/06/2023. FINDINGS: BRAIN: No acute intra-axial hemorrhage. No [...] cells well-developed andwell aerated. Debris in the [id number]-left EACs. ORBITS: No acute abnormality. Right stillaguamish ocular lens replaced. OTHER: No other significant abnormality. IMPRESSION: No acute intracranial process with chronic findings as above. THIS IS AN ELECTRONICALLY VERIFIED FINAL REPORT 07/08/2024 1:44 PM - Electronically signed by Mike OLIVEIRA T: Report ID: [id number] Reading Location: [id number] Lizet Sotelo MD IM CT PROCEDURES Di l Result * XR Chest 1 Vw Portable (if patient condition/safety warrant portable) (07/08/2024 1:30 PM TECHNOLOGY TEACHER) Anatomical Region Laterality Modality Body, Chest N/A Computed Radiogr aphy 07/08/2024 1:44 PM TECHNOLOGY TEACHER Narrative 07/08/2024 1:45 PM TECHNOLOGY TEACHER EXAM DESCRIPTION: XR CHEST 1 VIEW REASON [...] signed by Mike OLIVEIRA T: Report ID: [id number] Reading Location: [id number] Procedure Note Mike Madera MD - 07/08/2024 [...] signed by Mike OLIVEIRA T: Report ID: [id number] Reading Location: [id number] us Lizet Sotelo MD IMG XR PROCEDURES Di l Result * Troponin T high-sensitivity series (baseline, 2hr, 4hr, 6hr) (07/08/2024 1:04 PM TECHNOLOGY TEACHER) Trop T hs 16 <=22 ng/L Comment: Interpretive Data For further hscTnT resources including the diagnostic algorithm and an aid in interpretation, copy and paste this link: https://nrl.testcatalog.org/show/hsTrop Current Interpretive Data last revised 2020. Blood 07/08/2024 1:04 PM TECHNOLOGY TEACHER 07/08/2024 1:07 PM TECHNOLOGY TEACHER us Lizet Sotelo MD LAB BLOOD ORDERABLES F inal Result [facility] [address] [facility] Department [place] [address] * eGFR (07/08/2024 1:04 PM TECHNOLOGY TEACHER) eGFR >90 >=60 mL/min/1. 73 m2 Comment: [...] last reviewed 2021. Blood 07/08/2024 1:04 PM TECHNOLOGY TEACHER 07/08/2024 1:07 PM TECHNOLOGY TEACHER us Rehab Tim MATHIAS LAB BLOOD ORDERABLES Final Resu lt KARL [address] [facility] Department [place] [address] * (ABNORMAL) Differential, auto (07/08/2024 1:04 PM TECHNOLOGY TEACHER) Neutrophil abs 10.0(H) 1.5 - 6.5 K/cumm Imm gran abs 0.1 0.0 - 0.1 K/cumm [facility] Lymphocyte abs 1.3 0.8 - 3.3 K/cumm [facility] Monocyte abs 1.0(H) 0.2 - 0.8 K/cumm [facility] Eosinophil abs 0.2 0.0 - 0.5 K/cumm [facility] Basophil abs 0.1 0.0 - 0.1 K/cumm [facility] Neutrophil pct 79.9 % [facility] Comment: Interpretive Data Percent cell count reference ranges are not reported, since discordance with absolute values may lead to misinterpretation of CBC data. Current Interpretive Data was last revised on 2017. Imm gran pct 0.4 % [facility] Comment: Interpretive Data Percent cell count reference ranges are not reported, since discordance with absolute values may lead to misinterpretation of CBC data. Current Interpretive Data was last revised on 2017. Lymphocyte pct 10.1 % [facility] Comment: Interpretive Data Percent cell count reference ranges are not reported, since discordance with absolute values may lead to misinterpretation of CBC data. Current Interpretive Data was last revised on 2017. Monocyte pct 7.7 % [facility] Comment: Interpretive Data Percent cell count reference ranges are not reported, since discordance with absolute values may lead to misinterpretation of CBC data. Current Interpretive Data was last revised on 2017. Eosinophil pct 1.3 % [facility] Comment: Interpretive Data Percent cell count reference ranges are not reported, since discordance with absolute values may lead to misinterpretation of CBC data. Current Interpretive Data was last revised on 2017. Basophil pct 0.6 % [facility] Comment: Interpretive Data Percent cell count reference ranges are not reported, since discordance with absolute values may lead to misinterpretation of CBC data. Current Interpretive Data was last revised on 2017. Blood 07/08/2024 1:04 PM TECHNOLOGY TEACHER 07/08/2024 1:07 PM TECHNOLOGY TEACHER Lorraine Dumont MD LAB BLOOD ORDERABLES Final Resu lt Performing Organization Address City/[facility]/ZIP Co de Phone Number [address] [place] [address] * (ABNORMAL) CBC with auto differential (07/08/2024 1:04 PM TECHNOLOGY TEACHER) [facility] WBC 12.5(H) 3.8 - 9.9 K/cumm Hgb 15.0 13.0 - 17.5 g/dL [facility] Hct 44.9 38.9 - 50.3 % [facility] Plt 213 150 - 400 K/cumm [facility] MPV 11.9 9.1 - 12.3 fL [facility] RBC 4.79 4.30 - 5.80 M/cumm [facility] MCV 93.7 81.3 - 96.4 fL [facility] MCH 31.3 27.1 - 33.3 pg [facility] MCHC 33.4 32.3 - 35.7 g/dL [facility] RDW CV 13.9 11.1 - 14.9 % [facility] RDW SD 47.7 35.7 - 48.1 fL [facility] NRBC abs 0.00 0.00 - 0.01 K/cumm [facility] Blood Venous blood specimen / Unknown 07/08/2024 1:04 PM TECHNOLOGY TEACHER 07/08/2024 1:07 PM TECHNOLOGY TEACHER Lizet Sotelo MD LAB BLOOD ORDERABLES F inal Result Performing Organization Address [facility] Co de Phone Number KARL [address] [place] [address] * Comprehensive metabolic panel (07/08/2024 1:04 PM TECHNOLOGY TEACHER) [facility] Sodium 135 135 - 145 mmol/L Potassium, pl 4.3 3.3 - 4.9 mmol/L [facility] Chloride 98 97 - 110 mmol/L [facility] CO2 25 22 - 32 mmol/L [facility] Anion gap 12 2 - 15 mmol/L [facility] BUN 15 6 - 25 mg/dL [facility] Creatinine 0.90 0.80 - 1.30 mg/dL [facility] Glucose 177 70 - 199 mg/dL [facility] Comment: Interpretive Data Fasting glucose >/= [...] Calcium 9.9 8.5 - 10.3 mg/dL [facility] Bilirubin, total 0.5 0.1 - 1.2 mg/dL [facility] Protein, pl 7.3 6.5 - 8.5 g/dL [facility] Albumin 4.2 3.5 - 5.0 g/dL [facility] Alk phos 76 40 - 130 Units/L [facility] ALT 19 7 - 55 Units/L [facility] AST 12 10 - 50 Units/L [facility] Blood 07/08/2024 1:04 PM TECHNOLOGY TEACHER 07/08/2024 1:07 PM TECHNOLOGY TEACHER us Lizet Sotelo MD LAB BLOOD ORDERABLES F inal Result [facility] [address] [facility] Department [place] [address] * ECG 12 lead (07/08/2024 12:50 PM TECHNOLOGY TEACHER) [facility] Ventricular Rate EKG/Min 107 BPM [facility] Atrial Rate 107 BPM [facility] HI-Interval (MSEC) 190 ms [facility] QRS-Interval (MSEC) 92 ms [facility] QT-Interval (MSEC) 356 ms [facility] QTc 475 ms [facility] P [place] 62 degrees [facility] R [place] 61 degrees [facility] T [place] 55 degrees [facility] Diagnosis Sinus tachycardia Low voltage QRS Borderline ECG No previous ECGs available Confirmed by KENDALL ORTEGA M.D. ([id number]) on 07/09/2024 8:19:39 AM [facility] 07/08/2024 12:5 0 PM TECHNOLOGY TEACHER 07/09/2024 8:19 AM TECHNOLOGY TEACHER us Lizet Sotelo MD ECG ORDERABLES Final Result Performing Organization Address [facility] Co de Phone Number [facility] * eGFR (06/30/2024 5:40 AM TECHNOLOGY TEACHER) eGFR >90 >=60 mL/min/1. 73 m2 KARL [...] Current interpretive data was last reviewed 2021. [facility], [facility] [facility], [place]., [address] Blood 06/30/2024 5:40 AM TECHNOLOGY TEACHER 06/30/2024 7:08 AM TECHNOLOGY TEACHER us Pat EMERY LAB BLOOD ORDERABLES Final Resu lt KARL [address] [facility] Department [place] [address] * (ABNORMAL) CBC without differential (06/30/2024 5:40 AM TECHNOLOGY TEACHER) WBC 7.6 3.8 - 9.9 K/cumm KARL Comment:[address], [address] Hgb 13.9 13.0 - 17.5 g/dL KARL Comment:[address], [address] Hct 42.5 38.9 - 50.3 % KARL Comment:[address], [address] Plt 185 150 - 400 K/cumm KARL MH Comment:[address], [address] MPV 12.9(H) 9.1 - 12.3 fL KARL Comment:[address], [address] RBC 4.50 4.30 - 5.80 M/cumm KRAL Comment:[address], [address] MCV 94.4 81.3 - 96.4 fL KARL Comment:[address], [address] MCH 30.9 27.1 - 33.3 pg KARL MH Comment:[address], [address] MCHC 32.7 32.3 - 35.7 g/dL KARL Comment:[address], [address] RDW CV 13.9 11.1 - 14.9 % KARL Comment:[address], [address] RDW SD 47.9 35.7 - 48.1 fL KARL Comment:[address], [address] NRBC abs 0.00 0.00 - 0.01 K/cumm KARL Comment:[address], [address] Blood 06/30/2024 5:40 AM TECHNOLOGY TEACHER 06/30/2024 7:08 AM TECHNOLOGY TEACHER Pat EMERY LAB BLOOD ORDERABLES Final Resu lt KARL [address] Department [place] [address] * Comprehensive metabolic panel (06/30/2024 5:40 AM TECHNOLOGY TEACHER) Sodium 138 135 - 145 mmol/L KARL Comment:[address] [address] Potassium, pl 4.1 3.3 - 4.9 mmol/L KARL Comment:[address] [address] Chloride 99 97 - 110 mmol/L KARL Comment:[address] [address] CO2 29 22 - 32 mmol/L KARL Comment:[address] [address] Anion gap 10 2 - 15 mmol/L KARL Comment:[address] [address] BUN 18 6 - 25 mg/dL KARL Comment:[address] [address] Creatinine 0.80 0.80 - 1.30 mg/dL KARL Comment:[address] [address] Glucose 187 70 - 199 mg/dL KARL [...] Current interpretive data was last revised 2022. [facility], [address] [place] [address]., [address] Calcium 9.5 8.5 - 10.3 mg/dL [facility] Comment:[address] [address] Bilirubin, total 0.3 0.1 - 1.2 mg/dL [facility] Comment:[address] [address] Protein, pl 6.5 6.5 - 8.5 g/dL [facility] Comment:[address] [address] Albumin 3.9 3.5 - 5.0 g/dL [facility] Comment:[address] [address] Alk phos 69 40 - 130 Units/L [facility] Comment:[address] [address] ALT 12 7 - 55 Units/L [facility] Comment:[address] [address] AST 12 10 - 50 Units/L [facility] Comment:[address] [address] Blood 06/30/2024 5:40 AM TECHNOLOGY TEACHER 06/30/2024 7:08 AM TECHNOLOGY TEACHER Pat EMERY LAB BLOOD ORDERABLES Final Resu lt KARL [place] [address] [facility] Department [place] [address] * FL Modified Barium Swallow W Video (06/29/2024 2:01 PM TECHNOLOGY TEACHER) Anatomical Region Laterality Modality Head and Neck N/A Computed Radiogr aphy, Computed Radiography 06/29/2024 2:13 PM TECHNOLOGY TEACHER Narrative 06/29/2024 2:14 PM TECHNOLOGY TEACHER EXAM DESCRIPTION: FL MODIFIED BARIUM SWALLOW EVALUATION [...] Kareem Burnett M.D. SN T: Report ID: [id number] Reading Location: [place] [address] Procedure Note Kareem Burnett MD - 06/29/2024 [...] Kareem Burnett M.D. SN T: Report ID: [id number] Reading Location: [place] [address] Pat EMERY IMG FLUOROSCOPY PROCEDURES Di l Result * (ABNORMAL) CBC without differential (06/14/2024 5:44 AM TECHNOLOGY TEACHER) WBC 9.2 3.8 - 9.9 K/cumm KARL Comment:[address] [address] Hgb 13.5 13.0 - 17.5 g/dL KARL Comment:[address] [address] Hct 41.7 38.9 - 50.3 % KARL Comment:[address] [address] Plt 226 150 - 400 K/cumm KARL Comment:[address] [address] MPV 13.1(H) 9.1 - 12.3 fL KARL Comment:[address], [address] RBC 4.33 4.30 - 5.80 M/cumm KARL Comment:[address] [address] MCV 96.3 81.3 - 96.4 fL KARL Comment:[address] [address] MCH 31.2 27.1 - 33.3 pg KARL Comment:[address], [address] MCHC 32.4 32.3 - 35.7 g/dL KARL Comment:[address] [address] RDW CV 14.2 11.1 - 14.9 % KARL Comment:[address], [address] RDW SD 50.1(H) 35.7 - 48.1 fL KARL Comment:[address], [address] NRBC abs 0.00 0.00 - 0.01 K/cumm KARL Comment:[address] [address] Blood 06/14/2024 5:44 AM TECHNOLOGY TEACHER 06/14/2024 8:08 AM TECHNOLOGY TEACHER Pat EMERY LAB BLOOD ORDERABLES Final Resu lt [facility] [address] [facility] Department [place] [address] * FL Modified Barium Swallow W Video (06/09/2024 2:28 PM TECHNOLOGY TEACHER) Anatomical Region Laterality Modality Head and Neck N/A Computed Radiogr aphy, Computed Radiography 06/09/2024 2:41 PM TECHNOLOGY TEACHER Narrative 06/09/2024 2:43 PM TECHNOLOGY TEACHER EXAM DESCRIPTION: FL MODIFIED BARIUM SWALLOW EVALUATION [...] signed by Mike OLIVEIRA T: Report ID: [id number] Reading Location: [id number] Procedure Note Mike Madera MD - 06/09/2024 [...] Mike Madera M.D. TEE T: Report ID: [id number] Reading Location: [id number] Pat EMERY IMG FLUOROSCOPY PROCEDURES Di l Result * eGFR (06/08/2024 8:31 AM TECHNOLOGY TEACHER) eGFR >90 >=60 mL/min/1. 73 m2 KARL [...] Current interpretive data was last reviewed 2021. [address] [address] Blood 06/08/2024 8:31 AM TECHNOLOGY TEACHER 06/08/2024 8:42 AM TECHNOLOGY TEACHER us Pat EMERY LAB BLOOD ORDERABLES Final Resu lt KARL [place] [address] [place] [address] Department [place] [address] * (ABNORMAL) CBC without differential (06/08/2024 8:31 AM TECHNOLOGY TEACHER) WBC 11.1(H) 3.8 - 9.9 K/cumm [facility]ARL [place] Comment:[address] [address] Hgb 13.6 13.0 - 17.5 g/dL [facility] [place] Comment:[address] [address] Hct 41.6 38.9 - 50.3 % [facility] [place] Comment:[address] [address] Plt 171 150 - 400 K/cumm KARL [place] Comment:[address] [address] MPV 13.2(H) 9.1 - 12.3 fL [facility] [place] Comment:[address] [address] RBC 4.33 4.30 - 5.80 M/cumm [facility] [place] Comment:[address] [address] MCV 96.1 81.3 - 96.4 fL KARL Comment:[address] [address] MCH 31.4 27.1 - 33.3 pg KARL MH Comment:[address], [address] MCHC 32.7 32.3 - 35.7 g/dL [facility] MH Comment:[address], [address] RDW CV 14.6 11.1 - 14.9 % KARL Comment:[address] [address] RDW SD 51.8(H) 35.7 - 48.1 fL KARL Comment:[address], [address] NRBC abs 0.00 0.00 - 0.01 K/cumm [facility]L [place] Comment:[address] [address] Blood 06/08/2024 8:31 AM TECHNOLOGY TEACHER 06/08/2024 8:42 AM TECHNOLOGY TEACHER us Pat EMERY LAB BLOOD ORDERABLES Final Resu lt KARL [address] [facility] Department [place] [address] * (ABNORMAL) Comprehensive metabolic panel (06/08/2024 8:31 AM TECHNOLOGY TEACHER) Sodium 135 135 - 145 mmol/L [facility] [place] Comment:[address] [address] Potassium, pl 4.2 3.3 - 4.9 mmol/L [facility] [place] Comment:[address] [address] Chloride 98 97 - 110 mmol/L KARL Comment:[address], [address] CO2 29 22 - 32 mmol/L [facility] Comment:[address] [address] Anion gap 8 2 - 15 mmol/L [facility] Comment:[address] [address] BUN 24 6 - 25 mg/dL [facility] Comment:[address] [address] Creatinine 0.94 0.80 - 1.30 mg/dL [facility] Comment:[address] [address] Glucose 271(H) 70 - 199 mg/dL [facility] Comment: Interpretive Data Fasting glucose >/= [...] Current interpretive data was last revised 2022. [facility], [address] [place]., [address] Calcium 9.9 8.5 - 10.3 mg/dL [facility] Comment:[address] [address] Bilirubin, total 0.3 0.1 - 1.2 mg/dL [facility] Comment:[address] [address] Protein, pl 6.6 6.5 - 8.5 g/dL [facility] Comment:[address] [address] Albumin 3.9 3.5 - 5.0 g/dL [facility] Comment:[address] [address] Alk phos 78 40 - 130 Units/L [facility] Comment:[address] [address] ALT 23 7 - 55 Units/L [facility] Comment:[address] [address] AST 18 10 - 50 Units/L [facility] Comment:[facility], [address] [place]., [address] Blood 06/08/2024 8:31 AM TECHNOLOGY TEACHER 06/08/2024 8:42 AM TECHNOLOGY TEACHER Pat Knight PA LAB BLOOD ORDERABLES Final Resu lt Performing Organization Address [facility]/ZIP Co de Phone Number [address] Department [place] [address] * eGFR (06/04/2024 4:21 PM TECHNOLOGY TEACHER) eGFR >90 >=60 mL/min/1. 73 m2 KARL [...] Current interpretive data was last reviewed 2021. [facility], [address] [place] [address]., [address] Blood 06/04/2024 4:21 PM TECHNOLOGY TEACHER 06/04/2024 4:34 PM TECHNOLOGY TEACHER Tawny Batres THERAPEUTIC DIETITIAN LAB BLOOD ORDERABLES Final Result Performing Organization Address City/[facility]/ZIP Co de Phone Number [address] Department [place] [address] * (ABNORMAL) CBC without differential (06/04/2024 4:21 PM TECHNOLOGY TEACHER) WBC 8.3 3.8 - 9.9 K/cumm [facility] MH Comment:[address], [address] Hgb 13.3 13.0 - 17.5 g/dL [facility] MH Comment:[address], [address] Hct 39.4 38.9 - 50.3 % [facility] MH Comment:[address], [address] Plt 136(L) 150 - 400 K/cumm [facility] MH Comment:[address], [address] MPV 12.7(H) 9.1 - 12.3 fL [facility] Comment:[address], [address] RBC 4.17(L) 4.30 - 5.80 M/cumm [facility] Comment:[address], [address] MCV 94.5 81.3 - 96.4 fL [facility] Comment:[address], [address] MCH 31.9 27.1 - 33.3 pg [facility] Comment:[address], [address] MCHC 33.8 32.3 - 35.7 g/dL [facility] Comment:[address], [address] RDW CV 14.6 11.1 - 14.9 % [facility] Comment:[address], [address] RDW SD 50.1(H) 35.7 - 48.1 fL [facility] Comment:[address], [address] NRBC abs 0.00 0.00 - 0.01 K/cumm [facility]ER Comment:[address], [address] Blood 06/04/2024 4:21 PM TECHNOLOGY TEACHER 06/04/2024 4:34 PM TECHNOLOGY TEACHER Tawny Batres THERAPEUTIC DIETITIAN LAB BLOOD ORDERABLES Final Result Performing Organization Address [facility] Co de Phone Number [address] [address] * Phosphorus (06/04/2024 4:21 PM TECHNOLOGY TEACHER) [facility] Phosphorus, pl 3.6 2.3 - 4.5 mg/dL KARL Comment:[address] [address] Blood 06/04/2024 4:21 PM TECHNOLOGY TEACHER 06/04/2024 4:34 PM TECHNOLOGY TEACHER Tawny Batres NP LAB BLOOD ORDERABLES Final Result Performing Organization Address [facility] Co de Phone Number [address] [address] * Magnesium (06/04/2024 4:21 PM TECHNOLOGY TEACHER) [facility] Magnesium 2.3 1.4 - 2.5 mg/dL KARL Comment:[address] [address] Blood 06/04/2024 4:21 PM TECHNOLOGY TEACHER 06/04/2024 4:34 PM TECHNOLOGY TEACHER Tawny Batres NP LAB BLOOD ORDERABLES Final Result Performing Organization Address [facility] Co de Phone Number [address] [address] * (ABNORMAL) Hemoglobin A1c (06/04/2024 4:21 PM TECHNOLOGY TEACHER) [facility] Hgb A1C 7.6(H) 4.0 - 5.6 % KARL Comment:[address] [address] Estimated Average Glucose 171 mg/dL KARL Comment: The ADA recommends reporting an estimated Average Glucose (eAG) with all Hemoglobin A1c results using the equation derived from a study of 507 normal and diabetic adults. Minority populations were underrepresented and children were not included. (Diabetes Care 31:8118-0495, 2008). The eAG is not equivalent to a fasting glucose. [facility], [address] [place]., [address] Blood 06/04/2024 4:21 PM TECHNOLOGY TEACHER 06/04/2024 4:34 PM TECHNOLOGY TEACHER us Tawny Batres THERAPEUTIC DIETITIAN LAB BLOOD ORDERABLES Final Result [address] Department [place] [address] * (ABNORMAL) Comprehensive metabolic panel (06/04/2024 4:21 PM TECHNOLOGY TEACHER) Sodium 134(L) 135 - 145 mmol/L KARL Comment:[address] [address] Potassium, pl 4.1 3.3 - 4.9 mmol/L KARL Comment:[address] [address] Chloride 95(L) 97 - 110 mmol/L [facility] Comment:[address] [address] CO2 27 22 - 32 mmol/L [facility] Comment:[address] [address] Anion gap 12 2 - 15 mmol/L [facility] Comment:[address] [address] BUN 25 6 - 25 mg/dL [facility]L Comment:[address] [address] Creatinine 0.86 0.80 - 1.30 mg/dL [facility]L Comment:[address] [address] Glucose 229(H) 70 - 199 mg/dL KARL [...] Current interpretive data was last revised 2022. [facility], [address] [place]., [address] Calcium 9.5 8.5 - 10.3 mg/dL [facility] Comment:[facility], [address] [place] [address]., [address] Bilirubin, total 0.4 0.1 - 1.2 mg/dL [facility] Comment:[address] [address] Protein, pl 6.5 6.5 - 8.5 g/dL [facility] Comment:[address] [address] Albumin 3.9 3.5 - 5.0 g/dL [facility] Comment:[address] [address] Alk phos 79 40 - 130 Units/L [facility] Comment:[address] [address] ALT 28 7 - 55 Units/L [facility] Comment:[address] [address] AST 13 10 - 50 Units/L [facility] Comment:[address] [address] Blood 06/04/2024 4:21 PM TECHNOLOGY TEACHER 06/04/2024 4:34 PM TECHNOLOGY TEACHER Tawny Batres THERAPEUTIC DIETITIAN LAB BLOOD ORDERABLES Final Result [facility] [address] [place] [address] Department [place] [address] from Last [address] [facility] [employer] [id number] Advance Directives For more information, please contact: [phone] Documents on File Type Date Recorded Patient It Architect Expl anation ADVANCE DIRECTIVE 07/14/2024 11:20 AM POLS T - Phys Order for PT Preferences * Full Code (Latest Code Status on File) Date Activated Date Inactivated Comments 07/08/2024 8:07 PM 07/13/2024 6:31 PM Care Teams Tumbler Operator Relationship Specialty Start Date End Date Franck Garcia MD PCP - General 02/10/17
--- OUTSIDE RECORDS SUMMARY | 2024-09-02 12:14 | XMS_ITS | Clinical Summary ---
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 Gender Identity Not on file Sexual Orientation [...] 09/28/2008 ZOSTER VACCINE (1 of 2) 09/28/2013 RSV VACCINE (60+ or ) (1 - Risk 60-74 years 1-dose series) 2023 DIABETES HBA1C Q 6 MONTHS 10/30/20242023, 04/28/2024, 11/15/2018 INFLUENZA VACCINE Completed 06/01/2024 HEPATITIS B VACCINES Aged Out No long er eligible based on patient's age to complete this topic Procedures Procedure Name Priority Date/Time Associated Diagnosis Comments HEMOGLOBIN A1C Routine 11/15/2018 4:43 PM CDT from Last 3 Months or Most Recently Relevant to Health Maintenance Results * (ABNORMAL) HEMOGLOBIN A1C (11/15/2018 4:43 PM CDT) HEMOGLOBIN A1C 10.6(H) See comment % 11/15/2018 9:12 PM CDT [facility] EST. AVG GLUCOSE, A1C 258 mg/dL 11/15/2018 9:12 PM CDT [facility] Blood Venipuncture / Unknown 11/15/2018 4:43 PM CDT 11/15/2018 4:49 PM CDT Narrative [facility] - 11/15/2018 9:12 PM CDT HGB A1C INTERPRETATION NORMAL: <5.7% PRE-DIABETES: 5.7 - 6.4% DIABETES: 6.5% OR GREATER us Zee Isaacs NP CHEMISTRY ORDERABLES Final Re sult [facility] CLIA# [id number] [place] [address] from Last 3 Months or Most Recently Relevant to Health Maintenance Insurance [facility] [id number] [facility] [id number] Advance Directives For more information, please contact: [phone] * Full Code (Latest Code Status on File) Date Activated Date Inactivated Comments 11/15/2018 8:45 PM 11/16/2018 3:20 PM * Full Code Date Activated Date Inactivated Comments 10/24/2009 7:24 AM 10/25/2009 2:32 AM Care Teams Community Living Coach Relationship Specialty [place] [address] [place] [address] PCP - General 04/25/09
--- OUTSIDE RECORDS SUMMARY | 2024-09-02 12:15 | XMS_ITS | Encounter Summary ---
Author Organization [employer] Address 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 Gender Identity Not on file Sexual Orientation Not on file documented as of this encounter Plan of Treatment Not on file documented as of this encounter Procedures Procedure Name Priority Date/Time Associated Diagnosis Comments CT CHEST W CONTRAST Routine 07/25/2008 8 :[address] SOFT TISSUE NECK W CONTRAST Routine 07/25/2008 8:35 AM PRESSURIZATION MECHANIC documented in this encounter Results * CT CHEST W CONTRAST (07/25/2008 8:35 AM PRESSURIZATION MECHANIC) Anatomical Region Laterality Modality Chest Other 07/25/2008 8:35 AM PRESSURIZATION MECHANIC Narrative 07/25/2008 6:40 PM PRESSURIZATION MECHANIC [facility] [address] [place], [place] [address] Admit Date: 07/25/2008 FRANCK LOUISE Sex: M Admit Prov: EVER RECIO Date: 1965 Primary Care Prov: CMRN: [id number] Room: [facility] SSN: [id number] IMAGING SERVICES Ordering Prov: N/A Accession Number: [id number] Interpretation CT OF THE CHEST WITH INTRAVENOUS [...] Procedure Note Roseline Diego MD - 07/25/[address] [address] Admit Date: 07/25/2008 FRANCK LOUISE Sex: M Admit Prov: EVER RECIO Date: 1965 Primary Care Prov: CMRN: [id number] Room: [facility] SSN: [id number] IMAGING SERVICES Ordering Prov: N/A Interpretation CT [...] TISSUE NECK W CONTRAST (07/25/2008 8:35 AM PRESSURIZATION MECHANIC) Anatomical Region Laterality Modality Neck Other 07/25/2008 8:35 AM PRESSURIZATION MECHANIC Narrative 07/25/2008 2:42 PM PRESSURIZATION MECHANIC [facility] [address] [place], [place] [address] Admit Date: 07/25/2008 FRANCK LOUISE Sex: M Admit Prov: EVER RECIO Date: 1965 Primary Care Prov: CMRN: [id number] Room: [facility] SSN: [id number] IMAGING SERVICES Ordering Prov: N/A Accession Number: [id number] Interpretation SOFT TISSUE NECK CT WITH IV [...] 11:45 Procedure Note Lindsey Jamil - 07/25/2008 [facility] [address] [place], [place] [address] Admit Date: 07/25/2008 FRANCK LOUISE Sex: M Admit Prov: HEMALSCOTTYSISI ADRIANNE Date: 1965 Primary Care Prov: CMRN: [id number] Room: [facility] SSN: [id number] IMAGING SERVICES Ordering Prov: N/A Interpretation SOFT [...] neck documented in this encounter Care Teams Oncology Transplant Network Manager Relationship Specialty [place] [address] [place] [address] PCP - General 04/25/09 documented as of this encounter
--- OUTSIDE RECORDS SUMMARY | 2024-09-02 12:15 | XMS_ITS | Encounter Summary ---
Author Organization [employer] Address 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 Gender Identity Not on file Sexual Orientation [...] CDT) CREATININE 1.05 0.67 - 1.17 mg/dL [facility] ALT 25 0 - 41 U/L [facility] SODIUM 136 135 - 145 mmol/L [facility] ALKALINE PHOSPHATASE 69 40 - 129 U/L [facility] CO2 26 22 - 30 mmol/L [facility] BILIRUBIN TOTAL 0.3 0.2 - 1.0 mg/dL [facility] POTASSIUM 4.0 3.5 - 4.9 mmol/L [facility] TOTAL PROTEIN 7.4 6.3 - 8.6 g/dL [facility] GLUCOSE 134(H) 65 - 99 mg/dL [facility] AST 21 12 - 38 U/L [facility] BUN 17 6 - 20 mg/dL [facility] CALCIUM 9.7 8.6 - 10.2 mg/dL [facility] ALBUMIN 4.5 3.4 - 4.8 g/dL [facility] CHLORIDE 98 96 - 108 mmol/L [facility] GFR, >60 >=60 mL/min/1. 7 sq meter [facility] GFR >60 >=60 mL/min/1. 7 sq meter [facility] Comment: Modification of Diet in Renal Disease (MDRD) study formula. Estimated GFR rate interpretative information for both Americans and non- Americans is available on the [facility] Intranet at: [email or web address] Select: Lab Policies and Procedures Select: Reference Ranges - GFR Blood specimen (specimen) 10/28/2008 10:01 AM CDT 10/28/2008 10:01 AM CDT us Hsiaoou Hu CHEMISTRY ORDERABLES Edited INTERFACE SYSTEM Refer to clinic/hospital department [facility] CLIA# [id number] [address] [place], [place] [address] * (ABNORMAL) CBC WITH DIFFERENTIAL (10/28/2008 10:01 AM CDT) HEMOGLOBIN 14.6 13.6 - 16.5 g/dL [facility] RDW 13.5 11.5 - 14.5 % [facility] WBC 7.7 4.0 - 9.8 K/uL [facility] MCH 32.1 27.2 - 32.6 pg [facility] MPV 10.5 9.3 - 12.4 fL [facility] HEMATOCRIT 41.3 40.0 - 48.0 % [facility] RDW-STDEV 44.9 37.1 - 48.7 fL [facility] RBC 4.55 4.50 - 5.40 M/uL [facility] MCHC 35.4 31.5 - 35.5 % [facility] MCV 90.8 82.0 - 99.0 fL [facility] PLATELETS 209 140 - 350 K/uL [facility] EOSINOPHILS 3 0 - 7 % [facility] EOSINOPHIL ABSOLUTE 0.24 0.00 - 0.70 K/uL [facility] LYMPHOCYTES 15(L) 16 - 45 % [facility] LYMPHOCYTE ABSOLUTE 1.14 0.70 - 4.50 K/uL [facility] BASOPHILS 1 0 - 2 % [facility] BASOPHILS ABSOLUTE 0.04 0.00 - 0.20 K/uL [facility] MONOCYTES 10 3 - 13 % [facility] MONOCYTE ABSOLUTE 0.74 0.10 - 1.30 K/uL [facility] NEUTROPHILS 72(H) 45 - 70 % [facility] NEUTROPHIL ABSOLUTE 5.56 1.90 - 7.00 K/uL [facility] Blood specimen (specimen) 10/28/2008 10:01 AM CDT 10/28/2008 10:01 AM CDT Hsiaoou Hu HEMATOLOGY ORDERABLES Edited INTERFACE SYSTEM Refer to clinic/hospital department [facility] CLIA# [id number] [address] [place] [address] documented in this encounter Visit Diagnoses Diagnosis Malignant neoplasm of head, face, and neck (CMS/HCC) Malignant neoplasm of head, face, and neck documented in this encounter Care Teams Dermatopathologist Relationship Specialty [place] [address] [place] [address] PCP - General 04/25/09 documented as of this encounter
--- OUTSIDE RECORDS SUMMARY | 2024-09-02 12:15 | XMS_ITS | Encounter Summary ---
Author Organization [employer] Address [address] [place] [address] Care Team Providers Care Physician Scribe Name Role Phone Clifton Garcia MD Primary Care Provider [phone] Encounter Details Date Type Department Care Team (Latest Contact Info) Description 01/09/2008 Outpatient Historical [facility] David Seymour MD [facility] [address] [place] [address] Hilario Howard MD [address] [facility]. 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 [address] [place], [place] [address] PCP - General 11/3/09 documented as of this encounter
--- OUTSIDE RECORDS SUMMARY | 2024-09-02 12:15 | XMS_ITS | Encounter Summary ---
Author Organization [employer] Address [address] [place] [address] Care Team Providers Care Physician In Private Practice Name Role Phone Clifton Garcia MD Primary Care Provider [phone] Encounter Details Date Type Department Care Team (Latest Contact Info) Description 10/05/2007 Outpatient Historical [facility] [address] [place] [address] Hilario Howard MD [address] [facility] 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
--- OUTSIDE RECORDS SUMMARY | 2024-09-02 12:15 | XMS_ITS | Encounter Summary ---
Author Organization [employer] Address [address] [place] [address] Care Team Providers Care Nurse Informatics Educator Name Role Phone Franck Garcia MD Primary Care Provider [phone] Encounter Details Date Type Department Care Team (Latest Contact Info) Description 01/18/2008 Outpatient Historical [facility] Stephania Howard MD [address] 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 Gender Identity Not on file Sexual [...] PM CDT Narrative 01/19/2008 12:18 PM CDT [facility] [address] [place], [place] [address] Admit Date: 01/18/2008 FRANCK LOUISE Sex: M Admit Prov: STEPHANIA HOWARD Date: 1965 Primary Care Prov: CMRN: [id number] Room: [facility] SSN: [id number] IMAGING SERVICES Ordering Prov: N/A Accession Number: [id number] Interpretation CT SCAN SOFT TISSUE NECK WITH [...] Procedure Note Latesha Cartagena MD - 01/19/[address] [address] Admit Date: 01/18/2008 FRANCK LOUISE Sex: M Admit Prov: STEPHANIA HOWARD Date: 1965 Primary Care Prov: CMRN: [id number] Room: [facility] SSN: [id number] IMAGING SERVICES Ordering Prov: N/A Interpretation CT [...] tonsil documented in this encounter Care Teams Nurse Informatics Educator Relationship Specialty [place] [address] [facility] [address] [place] [address] PCP - General 04/25/09 documented as of this encounter
--- OUTSIDE RECORDS SUMMARY | 2024-09-02 12:15 | XMS_ITS | Encounter Summary ---
Author Organization [facility] Address [address] [place] [address] Care Team Providers Care Building Pressure Washer Name Role Phone Franck Garcia MD Primary Care Provider Encounter Details Date Type Department Care Team (Late st Contact Info) Description 08/10/2008 Outpatient Historical [facility] Stephania Howard MD [address] [place] [address] Sebaceous Cyst Social History Tobacco Use Types Packs/Day Years Used Date Smoking Tobacco: Never Assessed Sex and Gender Information Value Date Recorded Sex Assigned at Not on file Legal Sex Male 5:32 AM MANUAL TRAINING TEACHER Gender Identity Not on file Sexual Orientation Not on file documented as of this encounter Plan of Treatment Not on file documented as of this encounter Procedures Procedure Name Priority Date/Time Associated Diagnosis Comments PATHOLOGY Routine 08/17/2008 11:18 AM MANUAL TRAINING TEACHER CBC WITH DIFFERENTIAL Stat 08/17/2008 9:15 AM MANUAL TRAINING TEACHER BASIC METABOLIC PANEL Stat 08/17/2008 9:15 AM MANUAL TRAINING TEACHER documented in this encounter Results * PATHOLOGY (08/17/2008 11:18 AM MANUAL TRAINING TEACHER) FINAL REPORT [facility] [address] [place], [place] [address] Patient: FRANCK LOUISE : 1965 Procedure Date: 08/17/2008 Accession Date: 08/17/2008 Case No: [id number] Ordering Dr: STEPHANIA HOWARD Case types AW, BW, FW, NW and SH are performed by [facility] [place], [place] SURGICAL PATHOLOGY & NON-GYNECOLOGIC CYTOPATHOLOGY REPORT [...] is submitted in cassettes A1 and A2. [facility] 08.17.2008 10:52 pm Microscopic: The slides are labeled [id number]. Sections demonstrate a ruptured epidermal cyst. There is a marked foreign-body granulomatous inflammatory response to the extruded keratin contents. The features are benign. [facility] 08.18.2008 02:06 pm Staging Form: No ELECTRONIC SIGNATURE FOR TAD MATA M.D.- 08/18/08 04:02 pm INTERFACE SYSTEM 08/17/2008 11:1 8 AM MANUAL TRAINING TEACHER Stephania Howard MD PATHOLOGY/CYTOLOGY ORDERABLES Fi nal Result Performing Organization Address City/[facility] Co de Phone Number INTERFACE SYSTEM Refer to clinic/hospital department * CBC WITH DIFFERENTIAL (08/17/2008 9:15 AM MANUAL TRAINING TEACHER) Blood specimen (specimen) 08/17/2008 9:15 AM MANUAL TRAINING TEACHER 08/17/2008 9:27 AM MANUAL TRAINING TEACHER Stephania Howard MD HEMATOLOGY ORDERABLES Edited Performing Organization Address [facility] Co de Phone Number INTERFACE SYSTEM Refer to clinic/hospital department * (ABNORMAL) BASIC METABOLIC PANEL (08/17/2008 9:15 AM MANUAL TRAINING TEACHER) CREATININE 0.91 0.67 - 1.17 mg/dL [facility] POTASSIUM 4.2 3.5 - 4.9 mmol/L [facility] BUN 13 6 - 20 mg/dL [facility] CHLORIDE 101 96 - 108 mmol/L [facility] GLUCOSE 107(H) 65 - 99 mg/dL [facility] SODIUM 138 135 - 145 mmol/L [facility] GFR, >60 >=60 mL/min/1. 7 sq meter [facility] CALCIUM 9.2 8.6 - 10.2 mg/dL [facility] CO2 31(H) 22 - 30 mmol/L [facility] GFR >60 >=60 mL/min/1. 7 sq meter [facility] Comment: Modification of Diet in Renal Disease (MDRD) study formula. Estimated GFR rate interpretative information for both Americans and non- Americans is available on the [facility] Intranet at: [email or web address] Select: Lab Policies and Procedures Select: Reference Ranges - GFR Blood specimen (specimen) 08/17/2008 9:15 AM MANUAL TRAINING TEACHER 08/17/2008 9:27 AM MANUAL TRAINING TEACHER Narrative INTERFACE SYSTEM - 08/17/2008 10:03 AM MANUAL TRAINING TEACHER 26 Stephania Howard MD CHEMISTRY ORDERABLES Edited INTERFACE SYSTEM Refer to clinic/hospital department [facility] CLIA# [id number] [address] [place] [address] documented in this encounter Visit Diagnoses Diagnosis Sebaceous cyst documented in this encounter Care Teams Building Pressure Washer Relationship Specialty [place] [address] [place] [address] PCP - General 04/25/09 documented as of this encounter
--- OUTSIDE RECORDS SUMMARY | 2024-09-02 12:15 | XMS_ITS | Encounter Summary ---
Author Organization [employer] Address [address] [place] [address] Care Team Providers Care Hospice Nurse Name Role Phone Clifton Garcia MD Primary Care Provider [phone] Encounter Details Date Type Department Care Team (Latest Contact Info) Description 02/17/2008 Outpatient Historical [facility] David Seymour MD [address] [place] [address] [address] [place] [address] Malignant Neoplasm of Oropharynx, Unspecified Site (CMS/HCC) Social History Tobacco Use Types Packs/Day Years Used Date Smoking Tobacco: Never Assessed Sex and Gender Information Value Date Recorded Sex Assigned at Not on file 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
--- OUTSIDE RECORDS SUMMARY | 2024-09-02 12:15 | XMS_ITS | Encounter Summary ---
Author Organization [employer] Address [address] [place] [address] Care Team Providers Care Lining Brusher Name Role Phone Franck Garcia MD Primary Care Provider [phone] Encounter Details Date Type Department Care Team (Latest Contact Info) Description 04/25/2008 Outpatient Historical [facility] Hemal Rolandleny Malignant Neoplasm of Head, Face, and Neck (CMS/HCC) Social History Tobacco Use Types Packs/Day Years Used Date Smoking Tobacco: Never Assessed Sex and Gender Information Value Date Recorded Sex Assigned at Not on file Legal Sex Male 5:32 AM CRATE TIER Gender Identity Not on file Sexual Orientation Not on file documented as of this encounter Plan of Treatment Not on file documented as of this encounter Procedures Procedure Name Priority Date/Time Associated Diagnosis Comments CBC WITH DIFFERENTIAL Stat 04/29/2008 9:37 AM CRATE TIER COMPREHENSIVE METABOLIC PANEL Stat 04/29/2008 9:37 AM CRATE TIER PET TUMOR OR INFECTION IMG W CT SKB MDTH Routine 04/25/2008 8:28 AM CRATE TIER documented in this encounter Results * (ABNORMAL) COMPREHENSIVE METABOLIC PANEL (04/29/2008 9:37 AM CRATE TIER) ALKALINE PHOSPHATASE 82 40 - 129 U/L [facility] BILIRUBIN TOTAL 0.3 0.2 - 1.0 mg/dL [facility] CO2 30 22 - 30 mmol/L [facility] POTASSIUM 4.5 3.5 - 4.9 mmol/L [facility] TOTAL PROTEIN 7.3 6.3 - 8.6 g/dL [facility] GLUCOSE 141(H) 65 - 99 mg/dL [facility] AST 22 12 - 38 U/L [facility] BUN 17 6 - 20 mg/dL [facility] CALCIUM 9.7 8.6 - 10.2 mg/dL [facility] ALBUMIN 4.5 3.4 - 4.8 g/dL [facility] CHLORIDE 97 96 - 108 mmol/L [facility] CREATININE 0.90 0.67 - 1.17 mg/dL [facility] ALT 21 0 - 41 U/L [facility] SODIUM 138 135 - 145 mmol/L [facility] GFR, >60 >=60 mL/min/1. 7 sq meter [facility] GFR >60 >=60 mL/min/1. 7 sq meter [facility] Comment: Modification of Diet in Renal Disease (MDRD) study formula. Estimated GFR rate interpretative information for both Americans and non- Americans is available on the [facility] Intranet at: [email or web address] Select: Lab Policies and Procedures Select: Reference Ranges - GFR Blood specimen (specimen) 04/29/2008 9:37 AM CRATE TIER 04/29/2008 9:43 AM CRATE TIER Hsiaoou Hu CHEMISTRY ORDERABLES Edited INTERFACE SYSTEM Refer to clinic/hospital department [facility] CLIA# [id number] [address] [place] [address] * (ABNORMAL) CBC WITH DIFFERENTIAL (04/29/2008 9:37 AM CRATE TIER) WBC 5.3 4.0 - 9.8 K/uL [facility] MCH 31.8 27.2 - 32.6 pg [facility] MPV 10.4 9.3 - 12.4 fL [facility] HEMATOCRIT 40.6 40.0 - 48.0 % [facility] RDW-STDEV 42.9 37.1 - 48.7 fL [facility] RBC 4.43(L) 4.50 - 5.40 M/uL [facility] MCHC 34.7 31.5 - 35.5 % [facility] MCV 91.6 82.0 - 99.0 fL [facility] PLATELETS 215 140 - 350 K/uL [facility] HEMOGLOBIN 14.1 13.6 - 16.5 g/dL [facility] RDW 12.7 11.5 - 14.5 % [facility] BASOPHILS 1 0 - 2 % [facility] BASOPHILS ABSOLUTE 0.05 0.00 - 0.20 K/uL [facility] MONOCYTES 10 3 - 13 % [facility] MONOCYTE ABSOLUTE 0.53 0.10 - 1.30 K/uL [facility] NEUTROPHILS 66 45 - 70 % [facility] NEUTROPHIL ABSOLUTE 3.53 1.90 - 7.00 K/uL [facility] EOSINOPHILS 4 0 - 7 % [facility] EOSINOPHIL ABSOLUTE 0.21 0.00 - 0.70 K/uL [facility] LYMPHOCYTES 19 16 - 45 % [facility] LYMPHOCYTE ABSOLUTE 1.01 0.70 - 4.50 K/uL [facility] Blood specimen (specimen) 04/29/2008 9:37 AM CRATE TIER 04/29/2008 9:43 AM CRATE TIER Ye Recio HEMATOLOGY ORDERABLES Edited INTERFACE SYSTEM Refer to clinic/hospital department [facility] CLIA# [id number] [address] [place] [address] * PET TUMOR IMG W CT SKL BSE MID THG (04/25/2008 8:28 AM CRATE TIER) Anatomical Region Laterality Modality Other 04/25/2008 8:28 AM CRATE TIER Narrative 04/25/2008 10:45 AM CRATE TIER [facility] [address] [place], [place] [address] Admit Date: 04/25/2008 KIERADEMETRIFRANCK Sex: M Admit Prov: YE RECIO Date: 1965 Primary Care Prov: CMRN: [id number] Room: [facility] SSN: [id number] IMAGING SERVICES Ordering Prov: N/A Accession Number: [id number] Interpretation WHOLE BODY PET/CT HISTORY: 42 year [...] 10:44 Procedure Note Kole Gonzalez - 04/25/2008 [facility] [address] [place], [place] [address] Admit Date: 04/25/2008 FRANCK LOUISE Sex: M Admit Prov: YE RECIO Date: 1965 Primary Care Prov: CMRN: [id number] Room: [facility] SSN: [id number] IMAGING SERVICES Ordering Prov: N/A Interpretation WHOLE [...] neck documented in this encounter Care Teams Lining Brusher Relationship Specialty [place] [address] [facility] [address] [place] [address] PCP - General 04/25/09 documented as of this encounter
--- OUTSIDE RECORDS SUMMARY | 2024-09-02 12:15 | XMS_ITS | Encounter Summary ---
Author Organization [employer] Address 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 Gender Identity Not on file Sexual Orientation [...] CDT) CALCIUM 10.0 8.6 - 10.2 mg/dL [facility] Comment:Note new reference r devan effective 01/21/08 ALBUMIN 4.2 3.4 - 4.8 g/dL [facility] CHLORIDE 98 96 - 108 mmol/L [facility] CREATININE 0.96 0.67 - 1.17 mg/dL [facility] ALT 17 0 - 41 U/L [facility] SODIUM 138 135 - 145 mmol/L [facility] ALKALINE PHOSPHATASE 73 40 - 129 U/L [facility] CO2 28 22 - 30 mmol/L [facility] BILIRUBIN TOTAL 0.2 0.2 - 1.0 mg/dL [facility] POTASSIUM 4.3 3.5 - 4.9 mmol/L [facility] TOTAL PROTEIN 7.2 6.3 - 8.6 g/dL [facility] GLUCOSE 212(H) 65 - 99 mg/dL [facility] AST 14 12 - 38 U/L [facility] BUN 20 6 - 20 mg/dL [facility] GFR, >60 >=60 mL/min/1. 7 sq meter [facility] GFR >60 >=60 mL/min/1. 7 sq meter [facility] Comment: Modification of Diet in Renal Disease (MDRD) study formula. Estimated GFR rate interpretative information for both Americans and non- Americans is available on the [facility] Intranet at: [email or web address] Select: Lab Policies and Procedures Select: Reference Ranges - GFR Blood specimen (specimen) 01/29/2008 9:22 AM CDT 01/29/2008 9:25 AM CDT Ever Rec[employer] CHEMISTRY ORDERABLES Edited [facility] CLIA# [id number] [address] [place] [address] * (ABNORMAL) CBC WITH DIFFERENTIAL (01/29/2008 9:22 AM CDT) [facility] MCV 96.1 82.0 - 99.0 fL [facility] PLATELETS 223 140 - 350 K/uL [facility] HEMOGLOBIN 12.9(L) 13.6 - 16.5 g/dL [facility] RDW 12.9 11.5 - 14.5 % [facility] WBC 8.8 4.0 - 9.8 K/uL [facility] MCH 33.2(H) 27.2 - 32.6 pg [facility] MPV 9.6 9.3 - 12.4 fL [facility] HEMATOCRIT 37.3(L) 40.0 - 48.0 % [facility] RDW-STDEV 45.1 37.1 - 48.7 fL [facility] RBC 3.88(L) 4.50 - 5.40 M/uL [facility] MCHC 34.6 31.5 - 35.5 % [facility] ANISOCYTOSIS Slight [facility] MONOCYTES 8 3 - 13 % [facility] NEUTROPHIL ABSOLUTE 7.39(H) 1.90 - 7.00 K/uL [facility] NEUTROPHILS, SEG 84(H) 45 - 70 % [facility] PLATELET EST. Consistent w/ count Normal [facility] EOSINOPHIL ABSOLUTE 0.18 0.00 - 0.70 K/uL [facility] EOSINOPHILS 2 0 - 7 % [facility] LYMPHOCYTE ABSOLUTE 0.53(L) 0.70 - 4.50 K/uL [facility] LYMPHOCYTES 6(L) 16 - 45 % [facility] BASOPHILS ABSOLUTE 0.00 0.00 - 0.20 K/uL [facility] BASOPHILS 0 0 - 2 % [facility] MONOCYTE ABSOLUTE 0.70 0.10 - 1.30 K/uL [facility] Blood specimen (specimen) 01/29/2008 9:22 AM CDT 01/29/2008 9:25 AM CDT us Hsiaoou Hu HEMATOLOGY ORDERABLES Edited [facility] CLIA# [id number] [address] [place] [address] documented in this encounter Visit Diagnoses Diagnosis Malignant neoplasm of head, face, and neck (CMS/HCC) Malignant neoplasm of head, face, and neck documented in this encounter Care Teams Vice President Digital Strategist Relationship Specialty [place] [address] [place] [address] PCP - General 04/25/09 documented as of this encounter
--- OUTSIDE RECORDS SUMMARY | 2024-09-02 12:15 | XMS_ITS | Clinical Summary ---
Author Organization [facility] Address [address] [place] [address] Care Team Providers Care Mobile Device Engineer Name Role Phone Clifton Garcia MD Primary Care Provider [phone] Source Comments [facility] [employer],non-owned Affiliates and Associated Physician Practices is amultiple site organization consisting of ambulatory clinics and hospital sitesin [place], [place], [place] and [place]. This disclosure is being madepursuant to the Care Everywhere program and may not contain all information available regarding this patient. Last updated 18.[facility] [employer] Allergies No known active allergies Medications * [...] Recorded Patient Health Questionnaire-2 Score 0 05/12/2024 [facility] - Occupational Stress Questionnaire Answer Date Recorded [...] any time in the past 12 m [facility], were you homeless or living in a intermediate (including now)? No 04/28/2024 Sex and Gender Information Value Date Recorded Sex Assigned at Not on file Gender Identity Not on file Sexual Orientation Not on file Last Filed Vital Signs Vital Sign Reading Time Taken Comments Blood Pressure 138/103 06/02/2024 7:26 PM MUSEUM INFORMATICS SPECIALIST Pulse 101 06/02/2024 7:26 PM MUSEUM INFORMATICS SPECIALIST Temperature 36.4 C (97.5 F) 06/02/2024 7:34 AM MUSEUM INFORMATICS SPECIALIST Respiratory Rate 18 06/02/2024 4:27 AM MUSEUM INFORMATICS SPECIALIST Oxygen Saturation 98% 06/02/2024 7:34 AM MUSEUM INFORMATICS SPECIALIST Inhaled Oxygen Concentration 28% 05/06/2024 7 :59 PM MUSEUM INFORMATICS SPECIALIST Weight 56.2 kg (124 lb) 05/27/2024 9:15 PM MUSEUM INFORMATICS SPECIALIST Height 177.8 cm (5' 10 ) 05/11/2024 8:00 AM MUSEUM INFORMATICS SPECIALIST Body Mass Index 17.79 05/11/2024 8:00 AM MUSEUM INFORMATICS SPECIALIST Plan of Treatment Health Maintenance Due Date [...] complete this topic MENINGOCOCCAL (Group B) VACCINE SHARED DECISION-MAKING Aged Out No longer eligible based on patient's age to complete this topic MENINGOCOCCAL GROUPS A/C/Y/W VACCINE Aged Out No longer eligible based on patient's age to complete this topic Procedures Procedure Name Priority Date/Time Associated Diagnosis Comments COMPREHENSIVE METABOLIC PANEL Routine 05/29/2024 8:44 PM MUSEUM INFORMATICS SPECIALIST HEMOGLOBIN A1C Add on 05/02/2024 9:09 AM [facility] from Last 3 Months or Most Recently Relevant to Health Maintenance Results * (ABNORMAL) COMPREHENSIVE METABOLIC PANEL (05/29/2024 8:44 PM [facility]) BUN 26 7 - 26 mg/dL 05/29/2024 9:45 PM [facility] Creatinine 0.94 0.71 - 1.16 mg/dL 05/29/2024 9:45 PM [facility] Sodium 140 136 - 145 mmol/L 05/29/2024 9:45 PM [facility] Potassium 4.0 3.5 - 4.5 mmol/L 05/29/2024 9:45 PM [facility] Chloride 103 98 - 107 mmol/L 05/29/2024 9:45 PM [facility] CO2 27 22 - 29 mmol/L 05/29/2024 9:45 PM [facility] Glucose 194(H) 70 - 99 mg/dL 05/29/2024 9:45 PM [facility] Calcium 9.5 8.4 - 10.2 mg/dL 05/29/2024 9:45 PM [facility] Protein Total 6.7 6.0 - 8.3 g/dL 05/29/2024 9:45 PM [facility] Albumin 3.2(L) 3.4 - 5.0 g/dL 05/29/2024 9:45 PM [facility] Bilirubin Total 0.3 0.2 - 1.2 mg/dL 05/29/2024 9:45 PM [facility] Alkaline Phosphatase 72 40 - 150 U/L 05/29/2024 9:45 PM [facility] ALT 32 5 - 55 U/L 05/29/2024 9:45 PM [facility] AST 17 5 - 34 U/L 05/29/2024 9:45 PM [facility] Anion Gap 10 6 - 16 05/29/2024 9:45 PM [facility] BUN/Creatinine Ratio 28(H) 7 - 23 05/29/2024 9:45 PM [facility] Osmolality Calculated 300(H) 275 - 295 mOsm/kg 05/29/2024 9:45 PM [facility] Albumin/Globulin Ratio 0.9(L) 1.1 - 2.3 05/29/2024 9:45 PM [facility] eGFR by CKD-EPI >90 >=90 mL/min/1.7 3 m2 05/29/2024 9:45 PM [facility] Blood BLOOD SPECIMEN / Unknown Lab Venipuncture / Unknown 05/29/2024 8:44 PM MUSEUM INFORMATICS SPECIALIST 05/29/2024 9:15 PM MUSEUM INFORMATICS SPECIALIST Oral Nguyen MD LAB - CHEMISTRY O RDERABLES Performing Organization Address City/[facility]/ZIP Co de Phone Number [address] [address], [facility] [phone] * (ABNORMAL) HEMOGLOBIN A1C (05/02/2024 9:09 AM MUSEUM INFORMATICS SPECIALIST) Hemoglobin A1c 8.5(H) <=5.6 % 05/02/2024 2:42 PM [facility] Estimated Average Glucose 197 mg/dL 05/02/2024 2:42 PM [facility] Comment: HbA1c Interpretation: Normal : < 5.7% Pre-diabetes: 5.7-6.4% Diabetes: Equal to or greater than 6.5% Test results diagnostic of diabetes should be repeated for confirmation. Treatment target values recommended by ADA and other clinical organizations should be used to evaluate metabolic control in patients. Reference: [place] [employer], Standards of Care in Diabetes -2020 In patients 70 years and older consider HbA1c target range of 7.0-7.5% (Reference: Rico Mercedes et al. JAMDA. 2012) The Sebia assay for the measurement of HbA1c is a National Glycohemoglobin Standardization Program (NGSP) certified method. Blood BLOOD SPECIMEN / Unknown Venipuncture / Unknown 05/02/2024 9:09 AM MUSEUM INFORMATICS SPECIALIST 05/02/2024 9:20 AM MUSEUM INFORMATICS SPECIALIST Martín Daly DO LAB - CHEMISTRY GHAZALA CABRAL Performing Organization Address City/[facility]/ZIP Co de Phone Number [facility] [address] [place] [address], [place] [phone] from Last 3 Months or Most Recently Relevant to Health Maintenance Advance Directives * Full Code (Latest Code Status on File) Date Activated Date Inactivated Comments 04/28/2024 10:02 AM 06/02/2024 9:04 PM Care Teams Mobile Device Engineer Relationship Specialty [place] [address] [address] [facility] [address] [place] [address] PCP - General Internal Medicine 04/28/24
--- OUTSIDE RECORDS SUMMARY | 2024-09-02 12:15 | XMS_ITS | Patient Health Summary ---
Author Organization [facility] Address [address] [place] [address] Care Team Providers Care Veneer Jointer Name Role Phone Clifton Garcia MD Primary Care Provider [phone] Note [address] [facility],non-owned Affiliates and Associated Physician Practices is amultiple site organization consisting of ambulatory clinics and hospital sitesin [place], [place] and [place]. This disclosure is being madepursuant to the Care Everywhere program and may not contain all information available regarding this patient. Last updated 18.[facility] Allergies No known active allergies Medications * [...] Recorded Patient Health Questionnaire-2 Score 0 05/12/2024 [facility] Occup[facility] ional [facility] - Occupational Stress [...] were you homeless or living in a nursing home (including now)? No 04/28/2024 Sex and Gender Information Value Date Recorded Sex Assigned at Not on file Gender Identity Not on file Sexual Orientation Not on file Last Filed Vital Signs Vital Sign Reading Time Taken Comments Blood Pressure 138/103 06/02/2024 7:26 PM TRAVEL ADMINISTRATOR Pulse 101 06/02/2024 7:26 PM TRAVEL ADMINISTRATOR Temperature 36.4 C (97.5 F) 06/02/2024 7:34 AM TRAVEL ADMINISTRATOR Respiratory Rate 18 06/02/2024 4:27 AM TRAVEL ADMINISTRATOR Oxygen Saturation 98% 06/02/2024 7:34 AM TRAVEL ADMINISTRATOR Inhaled Oxygen Concentration 28% 05/06/2024 7 :59 PM TRAVEL ADMINISTRATOR Weight 56.2 kg (124 lb) 05/27/2024 9:15 PM TRAVEL ADMINISTRATOR Height 177.8 cm (5' 10 ) 05/11/2024 8:00 AM TRAVEL ADMINISTRATOR Body Mass Index 17.79 05/11/2024 8:00 AM TRAVEL ADMINISTRATOR Procedures * GLUCOSE - POINT OF CARE(Performed [...] 04/28/2024) * HEMOGLOBIN A1C(Performed 04/28/2024) * PT-INR [facility](Performed 04/28/2024) * COMPREHENSIVE METABOLIC PANEL(Performed 04/28/2024) * CBC W AUTO DIFFERENTIAL(Performed 04/28/2024) Results * (ABNORMAL) GLUCOSE - POINT OF CARE (06/02/2024 4:32 PM TRAVEL ADMINISTRATOR) Only the most recent of274 resultswithin the time period is included. [facility] Glucose WB/POC 249(H) 70 - 99 mg/dL 06/02/2024 4:59 PM TRAVEL ADMINISTRATOR [facility] Specimen Type Cap Fingerstick 2023 4:59 PM TRAVEL ADMINISTRATOR [facility] Blood BLOOD SPECIMEN / Unknown 06/02/2024 4:32 PM TRAVEL ADMINISTRATOR 06/02/2024 4:59 PM TRAVEL ADMINISTRATOR Elida Capellan MD LAB - POINT OF CARE ORDERABLES [address] [address], [facility] [phone] * (ABNORMAL) CBC W/O DIFFERENTIAL (05/29/2024 8:44 PM TRAVEL ADMINISTRATOR) Only the most recent of35 resultswithin the time period is included. [facility] WBC 8.6 4.0 - 10.7 x10E9/L 05/29/2024 9:21 PM TRAVEL ADMINISTRATOR [facility] RBC Count 4.24(L) 4.30 - 5.80 x10E12/L 05/29/2024 9:21 PM TRAVEL ADMINISTRATOR [facility] Hemoglobin 13.1(L) 13.3 - 17.5 g/dL 05/29/2024 9:21 PM [facility] Hematocrit 40.0 38.7 - 51.1 % 05/29/2024 9:21 PM [facility] MCV 94.3 80.0 - 98.0 fL 05/29/2024 9:21 PM [facility] MCH 30.9 26.7 - 33.6 pg 05/29/2024 9:21 PM [facility] MCHC 32.8 31.7 - 36.3 g/dL 05/29/2024 9:21 PM [facility] RDW-CV 14.7 11.3 - 14.8 % 05/29/2024 9:21 PM [facility] Platelet Count 177 150 - 420 x10E9/L 05/29/2024 9:21 PM [facility] MPV 12.8(H) 7.8 - 11.4 fL 05/29/2024 9:21 PM [facility] Blood BLOOD SPECIMEN / Unknown Lab Venipuncture / Unknown 05/29/2024 8:44 PM TRAVEL ADMINISTRATOR 05/29/2024 9:15 PM TRAVEL ADMINISTRATOR Oral Nguyen MD LAB - HEMATOLOGY ORDERABLES Performing Organization Address City/State/[facility] Co de Phone Number [facility] [address] [place] [address], [facility] [phone] * (ABNORMAL) COMPREHENSIVE METABOLIC PANEL (05/29/2024 8:44 PM TRAVEL ADMINISTRATOR) Only the most recent of3 resultswithin the time period is included. BUN 26 7 - 26 mg/dL 05/29/2024 9:45 PM [facility] Creatinine 0.94 0.71 - 1.16 mg/dL 05/29/2024 9:45 PM [facility] Sodium 140 136 - 145 mmol/L 05/29/2024 9:45 PM [facility] Potassium 4.0 3.5 - 4.5 mmol/L 05/29/2024 9:45 PM [facility] Chloride 103 98 - 107 mmol/L 05/29/2024 9:45 PM [facility] CO2 27 22 - 29 mmol/L 05/29/2024 9:45 PM [facility] Glucose 194(H) 70 - 99 mg/dL 05/29/2024 9:45 PM [facility] Calcium 9.5 8.4 - 10.2 mg/dL 05/29/2024 9:45 PM [facility] Protein Total 6.7 6.0 - 8.3 g/dL 05/29/2024 9:45 PM [facility] Albumin 3.2(L) 3.4 - 5.0 g/dL 05/29/2024 9:45 PM [facility] Bilirubin Total 0.3 0.2 - 1.2 mg/dL 05/29/2024 9:45 PM [facility] Alkaline Phosphatase 72 40 - 150 U/L 05/29/2024 9:45 PM [facility] ALT 32 5 - 55 U/L 05/29/2024 9:45 PM [facility] AST 17 5 - 34 U/L 05/29/2024 9:45 PM [facility] Anion Gap 10 6 - 16 05/29/2024 9:45 PM [facility] BUN/Creatinine Ratio 28(H) 7 - 23 05/29/2024 9:45 PM [facility] Osmolality Calculated 300(H) 275 - 295 mOsm/kg 05/29/2024 9:45 PM [facility] Albumin/Globulin Ratio 0.9(L) 1.1 - 2.3 05/29/2024 9:45 PM [facility] eGFR by CKD-EPI >90 >=90 mL/min/1.7 3 m2 05/29/2024 9:45 PM [facility] Blood BLOOD SPECIMEN / Unknown Lab Venipuncture / Unknown 05/29/2024 8:44 PM TRAVEL ADMINISTRATOR 05/29/2024 9:15 PM [facility] Oral Nguyen MD LAB - CHEMISTRY O RDERABLES [facility] [address] [place] [address], [facility] [phone] * PHOSPHORUS BLOOD (05/29/2024 8:44 PM TRAVEL ADMINISTRATOR) Only the most recent of37 resultswithin the time period is included. Phosphorus 4.1 2.8 - 5.1 mg/dL 05/29/2024 9:45 PM TRAVEL ADMINISTRATOR [facility] Blood BLOOD SPECIMEN / Unknown Lab Venipuncture / Unknown 05/29/2024 8:44 PM TRAVEL ADMINISTRATOR 05/29/2024 9:15 PM TRAVEL ADMINISTRATOR Oral Nguyen MD LAB - CHEMISTRY O SALONI Performing Organization Address City/[facility]/ZIP Co de Phone Number [facility] [address] [place] [phone], [facility] [phone] * MAGNESIUM BLOOD (05/29/2024 8:44 PM TRAVEL ADMINISTRATOR) Only the most recent of37 resultswithin the time period is included. Magnesium 2.4 1.6 - 2.6 mg/dL 05/29/2024 9:45 PM TRAVEL ADMINISTRATOR [facility] Blood BLOOD SPECIMEN / Unknown Lab Venipuncture / Unknown 05/29/2024 8:44 PM TRAVEL ADMINISTRATOR 05/29/2024 9:15 PM TRAVEL ADMINISTRATOR Oral Nguyen MD LAB - CHEMISTRY O SALONI Performing Organization Address City/[facility]/ZIP Co de Phone Number [facility] [address] [place] [phone], [facility] [phone] * CT Brain Stroke (05/23/2024 12:36 PM TRAVEL ADMINISTRATOR) Only the most recent of3 resultswithin the time period is included. Anatomical Region Laterality Modality Head Computed Tomogra phy 05/23/2024 12:3 3 PM TRAVEL ADMINISTRATOR Impressions 05/23/2024 12:43 PM TRAVEL ADMINISTRATOR IMPRESSION: 1. No acute intracranial hemorrhage. 2. [...] 05/23/2024 12:43 PM Narrative 05/23/2024 12:43 PM TRAVEL ADMINISTRATOR PROCEDURE: CT BRAIN STROKE, DATE/TIME OF EXAM: 05/23/2024 12:36 PM, LOCATION [facility] INDICATION: I63.9: Cerebrovascular accident (CVA), unspecified mechanism [...] DATE/TIME OF EXAM: 05/23/2024 12:36 PM, LOCATION [facility] INDICATION: I63.9: Cerebrovascular accident (CVA), unspecified mechanism [...] METABOLIC PANEL (CALCIUM TOTAL) (05/22/2024 5:03 AM [facility]) Only the most recent of34 resultswithin the time period is included. BUN 23 7 - 26 mg/dL 05/22/2024 7:15 AM [facility] Creatinine 1.02 0.71 - 1.16 mg/dL 05/22/2024 7:15 AM [facility] Sodium 143 136 - 145 mmol/L 05/22/2024 7:15 AM [facility] Potassium 4.3 3.5 - 4.5 mmol/L 05/22/2024 7:15 AM [facility] Chloride 104 98 - 107 mmol/L 05/22/2024 7:15 AM [facility] CO2 29 22 - 29 mmol/L 05/22/2024 7:15 AM [facility] Glucose 91 70 - 99 mg/dL 05/22/2024 7:15 AM [facility] Calcium 9.9 8.4 - 10.2 mg/dL 05/22/2024 7:15 AM [facility] Anion Gap 10 6 - 16 05/22/2024 7:15 AM [facility] BUN/Creatinine Ratio 23 7 - 23 05/22/2024 7:15 AM [facility] Osmolality Calculated 299(H) 275 - 295 mOsm/kg 05/22/2024 7:15 AM [facility] eGFR by CKD-EPI 84(L) >=90 mL/min/1.7 3 m2 05/22/2024 7:15 AM [facility] Blood BLOOD SPECIMEN / Unknown Lab Venipuncture / Unknown 05/22/2024 5:03 AM TRAVEL ADMINISTRATOR 05/22/2024 6:48 AM TRAVEL ADMINISTRATOR Patel Carroll MD LAB - CHEMISTRY ORD RACHEL [facility] [address] [place] [address], [facility] [phone] * (ABNORMAL) C-PEPTIDE (05/20/2024 10:17 AM TRAVEL ADMINISTRATOR) C-Peptide 4.0(H) 0.5 - 3.3 ng/mL 05/25/2024 9:33 PM TRAVEL ADMINISTRATOR SCChef Dovunque ([facility]) Comment: INTERPRETIVE INFORMATION: Serum, C-Peptide Reference Interval applies to fasting specimens. To convert to nmol/L, multiply by 0.33 Performed By: [id number] [address] [place] [address] Operation Supervisor: Red Corbin MD, PhD CLIA Number: [id number] Blood BLOOD SPECIMEN / Unknown Lab Venipuncture / Unknown 05/20/2024 10:17 AM TRAVEL ADMINISTRATOR 05/20/2024 10:49 AM TRAVEL ADMINISTRATOR Marium Maria DO LAB - CHEMISTRY GHAZALA CABRAL [facility]) [address] * (ABNORMAL) VITAMIN D 25-HYDROXY (05/19/2024 5:25 AM TRAVEL ADMINISTRATOR) Vitamin D, 25 Hydroxy 28.4(L) 30.0 - 80.0 ng/mL 05/19/2024 7:38 AM TRAVEL ADMINISTRATOR [facility] Comment: The recommendations for 25-Hydroxy Vitamin D [...] Lab Venipuncture / Unknown 05/19/2024 5:25 AM TRAVEL ADMINISTRATOR 05/19/2024 6:32 AM TRAVEL ADMINISTRATOR Marium Maria DO LAB - CHEMISTRY ORDAdolfo CABRAL Performing Organization Address City/[facility]/ZIP Co de Phone Number [address] [address], [facility] [phone] * FOLATE (05/19/2024 5:25 AM TRAVEL ADMINISTRATOR) Folate 14.8 7.0 - 31.4 ng/mL 05/19/2024 7:38 AM TRAVEL ADMINISTRATOR [facility] Blood BLOOD SPECIMEN / Unknown Lab Venipuncture / Unknown 05/19/2024 5:25 AM TRAVEL ADMINISTRATOR 05/19/2024 6:32 AM TRAVEL ADMINISTRATOR Marium Maria DO LAB - CHEMISTRY ORDAdolfo CABRAL Performing Organization Address City/[facility]/ZIP Co de Phone Number [address] [address], [facility] [phone] * VITAMIN B12 (05/19/2024 5:25 AM TRAVEL ADMINISTRATOR) Vitamin B12 627 213 - 816 pg/mL 05/19/2024 7:38 AM TRAVEL ADMINISTRATOR [facility] Blood BLOOD SPECIMEN / Unknown Lab Venipuncture / Unknown 05/19/2024 5:25 AM TRAVEL ADMINISTRATOR 05/19/2024 6:32 AM TRAVEL ADMINISTRATOR Marium Maria DO LAB - CHEMISTRY ORDE MARIANNA Performing Organization Address City/[facility]/ZIP Co de Phone Number [address] [address], [facility] [phone] * (ABNORMAL) IRON + TRANSFERRIN PANEL (05/19/2024 5:25 AM TRAVEL ADMINISTRATOR) Pathologist [facility] Iron 48(L) 50 - 175 ug/dL 05/19/2024 7:09 AM [facility] Transferrin 198 174 - 382 mg/dL 05/19/2024 7:09 AM [facility] Transferrin Saturation % 19 16 - 50 % 05/19/2024 7:09 AM [facility] TIBC Calculated 248 240 - 450 ug/dL 05/19/2024 7:09 AM [facility] Blood BLOOD SPECIMEN / Unknown Lab Venipuncture / Unknown 05/19/2024 5:25 AM TRAVEL ADMINISTRATOR 05/19/2024 6:54 AM TRAVEL ADMINISTRATOR Marium Adolfo Maria DO LAB - CHEMISTRY GHAZALA CABRAL Performing Organization Address [facility] Co de Phone Number [address] [address], [facility] [phone] * (ABNORMAL) URINALYSIS REFLEX TO MICROSCOPIC NO CULTURE (05/13/2024 11:27 AM TRAVEL ADMINISTRATOR) Only the most recent of2 resultswithin the time period is included. Color UA Yellow Straw, Yellow 05/13/2024 11:58 AM [facility] Clarity UA Clear Clear 05/13/2024 11:58 AM [facility] Specific [place] UA 1.010 1.005 - 1.030 05/13/2024 11:58 AM [facility] pH UA 7.0 5.0 - 8.0 pH 05/13/2024 11:58 AM [facility] Protein UA Negative Negative 05/13/2024 11:58 AM [facility] Glucose UA 3+(A) Negative 05/13/2024 11:58 AM [facility] Ketone UA Negative Negative 05/13/2024 11:58 AM [facility] Bilirubin UA Negative Negative 05/13/2024 11:58 AM [facility] Blood UA Negative Negative 05/13/2024 11:58 AM [facility] Nitrite UA Negative Negative 05/13/2024 11:58 AM [facility] Leukocyte Esterase Negative Negative 05/13/2024 11:58 AM [facility] Urobilinogen UA Negative Negative mg/dL 05/13/2024 11:58 AM [facility] RBC UA 3-5 None Seen, 0-2, 3-5 /HPF 05/13/2024 11:58 AM [facility] WBC UA 0-5 None Seen, 0-5 /HPF 05/13/2024 11:58 AM [facility] Squamous Epithelial Cells UA None Seen None Seen, 0-2, 3-5 /HPF 05/13/2024 11:58 AM [facility] Urine URINE SPECIMEN OBTAINED BY SINGLE CATHETERIZATION OF URINARY BLADDER / Unknown Collection / Unknown 05/13/2024 11:27 AM TRAVEL ADMINISTRATOR 05/13/2024 11:36 AM TRAVEL ADMINISTRATOR Narrative [facility] - 05/13/2024 11:58 AM TRAVEL ADMINISTRATOR Sumanth Chacon APRN-CLAUDIO LAB - URINALYSIS O RDERABLES [address] [address], [facility] [phone] * LACTIC ACID BLOOD (05/13/2024 8:05 AM TRAVEL ADMINISTRATOR) Lactic Acid-Stat 1.0 <=2.0 mmol/L 05/13/2024 8:45 AM [facility] Blood BLOOD SPECIMEN / Unknown Venipuncture / Unknown 05/13/2024 8:05 AM TRAVEL ADMINISTRATOR 05/13/2024 8:13 AM TRAVEL ADMINISTRATOR Sonu Lemus MD LAB - CHEMISTRY GHAZALA CABRAL [address] [address], [facility] [phone] * XR Chest 1Vw Portable (05/12/2024 7:52 PM TRAVEL ADMINISTRATOR) Only the most recent of4 resultswithin the time period is included. Anatomical Region Laterality Modality Chest Digital Radiogra phy 05/13/2024 7:39 AM TRAVEL ADMINISTRATOR Impressions 05/13/2024 3:40 PM TRAVEL ADMINISTRATOR IMPRESSION: Mild amount of left medial basilar infiltrate and atelectasis. Report dictated by Summer Davidson MD, (Tactical Response Group Officer). David Carne MD have personally reviewed and interpreted this examination/study. > Interpreting Provider: David Fitch MD on 05/13/2024 3:40 PM Narrative 05/13/2024 3:40 PM TRAVEL ADMINISTRATOR PROCEDURE: XR CHEST 1VW PORTABLE DATE/TIME OF [...] andatelectasis. Report dictated by Summer Davidson MD, (Tactical Response Group Officer). David Crane MD have personally reviewed and interpreted this examination/study. > Interpreting Provider: David Fitch MD on 05/13/2024 3:40 PM Sonu Lemus MD DIAGNOSTIC IMAGING O RDERABLES * FL SWALLOWING FUNCTION STUDY (05/12/2024 2:11 PM TRAVEL ADMINISTRATOR) Only the most recent of3 resultswithin the time period is included. Anatomical Region Laterality Modality Chest Digital Radiogra phy 05/12/2024 2:35 PM TRAVEL ADMINISTRATOR Narrative 05/12/2024 6:40 PM TRAVEL ADMINISTRATOR PROCEDURE: FL SWALLOWING FUNCTION STUDY DATE/TIME OF [...] Report dictated by Summer Davidson MD, (global supply chain vice president). Betito Crane MD have personally reviewed [...] Report dictated by Summer Davidson MD, (global supply chain vice president). I, Betito Damico MD have personally reviewed and interpreted this examination/study. > Interpreting Provider: Betito Damico MD on 05/12/2024 6:40 PM Sonu Lemus MD FLUOROSCOPY ORDERABL ES * TSH REFLEX FREE T4 (05/08/2024 8:15 PM TRAVEL ADMINISTRATOR) Only the most recent of2 resultswithin the time period is included. TSH 3.223 0.350 - 4.940 uIU/mL 05/08/2024 9:12 PM TRAVEL ADMINISTRATOR [facility] Blood BLOOD SPECIMEN / Unknown Venipuncture / Unknown 05/08/2024 8:15 PM TRAVEL ADMINISTRATOR 05/08/2024 8:26 PM TRAVEL ADMINISTRATOR Sonu Lemus MD LAB - CHEMISTRY ORDAdolfo CABRAL Performing Organization Address City/[facility]/ZIP Co de Phone Number [address] [address], [facility] [phone] * (ABNORMAL) ACTH 60 MINUTES (05/08/2024 1:54 AM TRAVEL ADMINISTRATOR) Cortisol 60 Min 15.9(L) >=20.0 mcg/dL 05/08/2024 2:45 AM TRAVEL ADMINISTRATOR [facility] Blood BLOOD SPECIMEN / Unknown Venipuncture / Unknown 05/08/2024 1:54 AM TRAVEL ADMINISTRATOR 05/08/2024 1:57 AM TRAVEL ADMINISTRATOR Sonu Lemus MD [facility] [address] [address], [facility] [phone] * (ABNORMAL) ACTH 30 MINUTES (05/08/2024 1:06 AM TRAVEL ADMINISTRATOR) Cortisol 30 Min 16.1(L) >=20.0 mcg/dL 05/08/2024 2:04 AM TRAVEL ADMINISTRATOR [facility] Blood BLOOD SPECIMEN / Unknown Venipuncture / Unknown 05/08/2024 1:06 AM TRAVEL ADMINISTRATOR 05/08/2024 1:16 AM TRAVEL ADMINISTRATOR Sonu Lemus MD LAB - CHEMISTRY GHAZALA CABRAL [address] [address], [facility] [phone] * CORTISOL BLOOD AM (05/08/2024 12:21 AM TRAVEL ADMINISTRATOR) Cortisol AM 12.7 3.7 - 19.4 ug/dL 05/08/2024 1:22 AM TRAVEL ADMINISTRATOR [facility] Blood BLOOD SPECIMEN / Unknown Venipuncture / Unknown 05/08/2024 12:21 AM TRAVEL ADMINISTRATOR 05/08/2024 12:[address] [facility] - 05/08/2024 1:22 AM TRAVEL ADMINISTRATOR Normal cortisol levels are generally highest in the morning hours and lowest from late evening through the early intervention school psychologist hours (8 PM to 4 AM). The PM measurements of cortisol run approximately one-half to one-third of the AM values. Sonu Lemus MD LAB - CHEMISTRY GHAZALA CABRAL [address] [address], [facility] [phone] * PROCALCITONIN LEVEL (05/06/2024 3:58 PM TRAVEL ADMINISTRATOR) PROCALCITONIN 0.07 <=0.10 ng/mL 05/06/2024 5:12 PM TRAVEL ADMINISTRATOR [facility] Blood BLOOD SPECIMEN / Unknown Venipuncture / Unknown 05/06/2024 3:58 PM TRAVEL ADMINISTRATOR 05/06/2024 4:[address] [facility] - 05/06/2024 5:12 PM TRAVEL ADMINISTRATOR The change in procalcitonin (PCT) concentration over [...] Change in Procalcitonin Calculator is available at [email or web address] If clinical picture has not improved and PCT remains high, reevaluate and consider treatment failure or other causes. Terry Edwards MD LAB - CHEMISTRY GHAZALA CABRAL Performing Organization Address [facility]/ZIP Co de Phone Number [address] [address], [facility] [phone] * MRSA DNA PCR (05/05/2024 5:59 PM TRAVEL ADMINISTRATOR) MRSA DNA by PCR Not detected Not detected 05/06/2024 1:[address] [facility] MICROBIOLOGY Microbiology SPECIMEN FROM NASAL FOSSAE / Unknown Collection / Unknown 05/05/2024 5:59 PM TRAVEL ADMINISTRATOR 05/05/2024 6:22 PM TRAVEL ADMINISTRATOR Narrative [facility] MICROBIOLOGY - 05/06/2024 1:37 AM TRAVEL ADMINISTRATOR Methicillin-resistant Staphylococcus aureus (MRSA) DNA is not detected (presumed not colonized with MRSA). Terry Edwards MD LAB - MICROBIOLOGY O RDERABLES Performing Organization Address City/[facility]/ZIP Co de Phone Number [facility] MICROBIOLOGY [address] [place] [address], [facility] [phone] * (ABNORMAL) CULTURE SPUTUM+GRAM STAIN (05/05/2024 5:59 PM TRAVEL ADMINISTRATOR) Culture Heavy Staphylococcus aureus(A) ROBERT 05/09/2024 5:[address] [facility] MICROBIOLOGY Comment:Staphylococcus aureu s methicillin-susceptible (MSSA) detected by penicillin binding protein immunoassay. Culture Heavy Klebsiella pneumoniae(A) ROBERT 05/09/2024 5:38 AM [facility] MICROBIOLOGY Culture Heavy normal oropharyngeal jin ORBERT 05/09/2024 5:38 AM [facility] MICROBIOLOG[facility] Gram Stain Heavy Polymorphonuclear cells 05/09/2024 5:38 AM [facility] MICROBIOLOG[facility] Gram Stain Heavy Gram-positive bacilli 05/09/2024 5:38 AM [facility] MICROBIOLOG[facility] Gram Stain Heavy Gram-positive cocci 05/09/2024 5:38 AM [facility] MICROBI[facility] Gram Stain Light Gram-negative bacilli 05/09/2024 5:38 AM [facility] MICROBIOLOG[facility] Microbiology SPUTUM / Unknown Collection / Unknown 05/05/2024 5:59 PM TRAVEL ADMINISTRATOR 05/05/2024 6:22 PM [facility] Organism Antibiotic Method Susceptibility Staphylococcus aureus Cefazolin [...] Edwards MD LAB - MICROBIOLOGY O RDERABLES [facility] MICROBIOLOGY [address] [place] [address], [facility] [phone] * IR Picc Line Insert (05/04/2024 3:35 PM TRAVEL ADMINISTRATOR) Anatomical Region Laterality Modality Chest, Upper Extremity Other Narrative 05/04/2024 3:30 PM TRAVEL ADMINISTRATOR Richy Perez RN 05/04/2024 3:44 PM Department [...] male recently transferred from stroke service to [facility] after completion of stroke workup. 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 Patient was transferred on DAPT and Atorvastatin 80 mg with goal of liberalizing Blood Pressure goals to the 160s. Indication: Vasopressors Steamfitter: Richy Perez RN PR- Procedures: 1. Limited extremity ultrasound to assess vascular patency 2. Ultrasound guided access of the Right basilic vein. 3. Placement of peripherally inserted central line with magnetic tracking and ECG tip positioning system (GooodJob). Anesthesia: Local anesthesia with 4mL of 1% [...] magnetic tracking and ECG tip positioning system (StockCastr), The peel-away sheath was removed, and the [...] COLOR FLOW AND DOPPLER (05/04/2024 10:42 AM TRAVEL ADMINISTRATOR) IVSd 2D 1.331 cm SSM CV FUJ [...] Laterality Modality Ultrasound 05/04/2024 10:0 8 AM TRAVEL ADMINISTRATOR Narrative 05/04/2024 12:28 PM TRAVEL ADMINISTRATOR Summary * The left ventricle is not [...] Exam Date: 05/04/2024 10:08 AM Exam Room: [facility] Patient Status: I/P Study Site: [facility] Primary Location: [facility] EStudy Info Technical Quality: Technically Difficult Exam [...] Provider: Terry Edwards Attending Physician: Terry Edwards Regulatory Compliance Engineer: Jorden May Left Ventricle The left ventricle [...] Room: 314 Patient Status: I/P Study Site: [facility] Primary Location: [facility] EStud Info Technical Quality: Technically Difficult Exam [...] Provider: Terry Edwards Attending Physician: Terry Edwards Regulatory Compliance Engineer: Jorden May Left Ventricle The left ventricle [...] MRI BRAIN WO CONTRAST (05/04/2024 12:19 AM TRAVEL ADMINISTRATOR) Only the most recent of2 resultswithin the time period is included. Anatomical Region Laterality Modality Head Magnetic Resonan ce 05/04/2024 3:07 AM TRAVEL ADMINISTRATOR Impressions 05/04/2024 10:35 AM TRAVEL ADMINISTRATOR IMPRESSION: Compared to the prior MRI of [...] 05/04/2024 10:35 AM Narrative 05/04/2024 10:35 AM TRAVEL ADMINISTRATOR PROCEDURE: MRI BRAIN WO CONTRAST, DATE/TIME OF EXAM: 05/04/2024 12:19 AM, LOCATION [facility] INDICATION: I63.9: Cerebrovascular accident (CVA), unspecified mechanism [...] and additional degenerative changes, with mild or [id number] spinal canal stenosis at C3-C4. If there [...] CONTRAST, DATE/TIME OF EXAM: 05/04/2024 12:19AM, LOCATION [facility] INDICATION: I63.9: Cerebrovascular accident (CVA), unspecified mechanism [...] left insula, (series 3 and series 4, [id number]). *Additional new small infarcts in the left [...] and additional degenerative changes, with mild or [id number] spinal canalstenosis at C3-C4. If there is [...] Martín Daly DO MR ORDERABLES * PTT [facility] (05/02/2024 11:54 PM TRAVEL ADMINISTRATOR) APTT 23.1 23.0 - 38.4 Seconds 05/03/2024 12:26 AM TRAVEL ADMINISTRATOR [facility] Comment:Suggested therapeuti c range for full dose I.V. unfractionated heparin therapy for venous thromboembolism is 71 to 109 seconds. Blood BLOOD SPECIMEN / Unknown Venipuncture / Unknown 05/02/2024 11:54 PM TRAVEL ADMINISTRATOR 05/03/2024 12:00 AM TRAVEL ADMINISTRATOR Terry Edwards MD LAB - COAGULATION OR DERABLES [facility] [address] [place] [address], [facility] [phone] * TROPONIN-I HIGH SENSITIVE (05/02/2024 10:46 AM TRAVEL ADMINISTRATOR) Pathologist [facility] Troponin I High Sensitive 6 <=35 ng/L 05/02/2024 11:36 AM TRAVEL ADMINISTRATOR [facility] Blood BLOOD SPECIMEN / Unknown Venipuncture / Unknown 05/02/2024 10:46 AM TRAVEL ADMINISTRATOR 05/02/2024 10:56 AM TRAVEL ADMINISTRATOR Patel Carroll MD LAB - CHEMISTRY ORD ERABLES [facility] [address] [place] [address], [facility] [phone] * EKG 12-LEAD (05/02/2024 9:26 AM TRAVEL ADMINISTRATOR) [facility] Ventricular Rate 81 BPM SL MUSE Atrial Rate 81 BPM SL MUSE P-R Interval 204 ms SL MUSE QRS Duration ms 100 ms SL MUSE Q-T Interval ms 404 ms [facility] MUSE QTC Calculation (Bezet) 469 ms [facility] MUSE Calculated P Coleman 77 degrees SL MUSE Calculated R Coleman 59 degrees [facility] MUSE Calculated T Coleman 31 degrees [facility] MUSE Interpretation EKG NORMAL SINUS RHYTHM NORMAL ECG NO PREVIOUS ECGS AVAILABLE Confirmed by NATALIE MATHIAS, HAYDEN KABA ([id number]) on 05/06/2024 10:33:47 AM [facility] 05/02/2024 9:26 AM TRAVEL ADMINISTRATOR 05/06/2024 10:33 AM [facility] Patel Carroll MD ECG ORDERABLES Performing Organization Address [facility]/ZIP Co de Phone Number [facility] MUSE * TROPONIN-I HIGH SENSITIVE BASELINE + 1HR (05/02/2024 9:09 AM TRAVEL ADMINISTRATOR) Only the most recent of2 resultswithin the time period is included. Pathologist [facility] Troponin I High Sensitive 5 <=35 ng/L 05/02/2024 9:50 AM TRAVEL ADMINISTRATOR [facility] Blood BLOOD SPECIMEN / Unknown Venipuncture / Unknown 05/02/2024 9:09 AM TRAVEL ADMINISTRATOR 05/02/2024 9:18 AM TRAVEL ADMINISTRATOR Martín Daly DO LAB - CHEMISTRY GHAZALA CABRAL Performing Organization Address City/[facility]/ZIP Co de Phone Number [address] [address], [facility] [phone] * (ABNORMAL) HEMOGLOBIN A1C (05/02/2024 9:09 AM TRAVEL ADMINISTRATOR) Only the most recent of2 resultswithin the time period is included. Hemoglobin A1c 8.5(H) <=5.6 % 05/02/2024 2:[address] [facility] Estimated Average Glucose 197 mg/dL 05/02/2024 2:42 PM [facility] Comment: HbA1c Interpretation: Normal : < 5.7% Pre-diabetes: 5.7-6.4% Diabetes: Equal to or greater than 6.5% Test results diagnostic of diabetes should be repeated for confirmation. Treatment target values recommended by ADA and other clinical organizations should be used to evaluate metabolic control in patients. Reference: [place] [employer], Standards of Care in Diabetes -2020 In patients 70 years and older consider HbA1c target range of 7.0-7.5% (Reference: Rico Mercedes et al. JAMDA. 2012) The Sebia assay for the measurement of HbA1c is a National Glycohemoglobin Standardization Program (NGSP) certified method. Blood BLOOD SPECIMEN / Unknown Venipuncture / Unknown 05/02/2024 9:09 AM TRAVEL ADMINISTRATOR 05/02/2024 9:20 AM TRAVEL ADMINISTRATOR Martín Daly DO LAB - CHEMISTRY GHAZALA CABRAL Performing Organization Address City/[facility]/ZIP Co de Phone Number [address] [address], [facility] [phone] * CT Angio Brain Neck Stroke (05/02/2024 8:52 AM TRAVEL ADMINISTRATOR) Only the most recent of2 resultswithin the time period is included. Anatomical Region Laterality Modality Head Computed Tomogra phy 05/02/2024 8:49 AM TRAVEL ADMINISTRATOR Impressions 05/02/2024 10:24 AM TRAVEL ADMINISTRATOR IMPRESSION: 1.Diffusely slightly smaller caliber of the [...] detection. Report dictated by Yuri Cano MD (global supply chain vice president). I, Yen Resendiz MD have personally reviewed and interpreted this examination/study. > Interpreting Provider: Yen Resendiz MD on 05/02/2024 10:24 AM Narrative 05/02/2024 10:24 AM TRAVEL ADMINISTRATOR PROCEDURE: CT ANGIO BRAIN NECK STROKE, DATE/TIME OF EXAM: 05/02/2024 8:22 AM, LOCATION [facility] INDICATION: R53.1: Weakness I63.9: Cerebrovascular accident (CVA), [...] STROKE, DATE/TIME OF EXAM: 48:22 AM, LOCATION [facility] INDICATION: R53.1: Weakness I63.9: Cerebrovascular accident (CVA), [...] detection. Report dictated by Yuri Cano MD (global supply chain vice president). I, Yen Resendiz MD have personally reviewed and interpreted this examination/study. > Interpreting Provider: Yen Resendiz MD on 05/02/2024 10:24 AM Martín Daly DO CT ORDERABLES * CARDIAC EKG ORDER (04/29/2024 2:17 PM TRAVEL ADMINISTRATOR) Narrative 04/29/2024 2:17 PM TRAVEL ADMINISTRATOR Ordered by an unspecified provider. Scanned Document CARDIAC SERVICES ORD ERABLES * XR Skull 3Vw or Less (04/28/2024 5:40 PM TRAVEL ADMINISTRATOR) Anatomical Region Laterality Modality Head Digital Radiogra phy 04/29/2024 7:33 AM TRAVEL ADMINISTRATOR Impressions 04/29/2024 8:38 AM TRAVEL ADMINISTRATOR IMPRESSION: No metallic objects seen in the skull. Report dictated by David Denis MD,(global supply chain vice president). Wilfredo Crane MD have personally reviewed and interpreted this examination/study. > Interpreting Provider: Wilfredo Bach MD on 04/29/2024 8:38 AM Narrative 04/29/2024 8:38 AM TRAVEL ADMINISTRATOR PROCEDURE: XR SKULL 3VW OR LESS, DATE/TIME OF EXAM: 04/28/2024 5:40 PM, LOCATION [facility] INDICATION: R53.1: Weakness ADDITIONAL CLINICAL INFORMATION: Ordering Provider Reason For Exam: MRI Clearance Technologist Note: Additional: COMPARISON: None. FINDINGS: The calvarium is intact. No definite facial fracture is identified. The visible sinuses are unremarkable. No air-fluid level is seen. Procedure Note Wilfredo Bach MD - 04/29/2024 PROCEDURE: XR SKULL 3VW OR LESS, DATE/TIME OF EXAM: 04/28/2024 5:40 PM, LOCATION [facility] INDICATION: R53.1: Weakness ADDITIONAL CLINICAL INFORMATION: Ordering Provider Reason For Exam: MRI Clearance Technologist Note: Additional: COMPARISON: None. FINDINGS: The calvarium is intact. No definite facial fracture is identified. The visible sinuses are unremarkable. No air-fluid level is seen. IMPRESSION: No metallic objects seen in the skull. Report dictated by David Denis MD,(global supply chain vice president). Wilfredo Crane MD have personally reviewed and interpreted this examination/study. > Interpreting Provider: Wilfredo Bach MD on 04/29/2024 8:38 AM Tristan Quinn MD DIAGNOSTIC IMAGING O RDERABLES * XR Abdomen Kub Portable (04/28/2024 5:40 PM TRAVEL ADMINISTRATOR) Anatomical Region Laterality Modality Abdomen Digital Radiogra phy 04/29/2024 7:31 AM TRAVEL ADMINISTRATOR Impressions 04/29/2024 8:34 AM TRAVEL ADMINISTRATOR IMPRESSION: Non-obstructive bowel gas pattern. No metallic objects in the field of view. Report dictated by David Denis MD, (global supply chain vice president). Wilfredo Crane MD have personally reviewed and interpreted this examination/study. > Interpreting Provider: Wilfredo Bach MD on 04/29/2024 8:34 AM Narrative 04/29/2024 8:34 AM TRAVEL ADMINISTRATOR PROCEDURE: XR ABDOMEN KUB PORTABLE, DATE/TIME OF EXAM: 04/28/2024 5:40 PM, LOCATION [facility] INDICATION: R53.1: Weakness ADDITIONAL CLINICAL INFORMATION: Ordering [...] PORTABLE, DATE/TIME OF EXAM: 04/28/2024 5:40PM, LOCATION [facility] INDICATION: R53.1: Weakness ADDITIONAL CLINICAL INFORMATION: Ordering [...] view. Report dictated by David Denis MD, (global supply chain vice president). Wilfredo Crane MD have personally reviewed and interpreted this examination/study. > Interpreting Provider: Wilfredo Bach MD on 04/29/2024 8:34 AM Tristan Quinn MD DIAGNOSTIC IMAGING O RDERABLES * XR Pelvis 1 or 2Vw (04/28/2024 5:40 PM TRAVEL ADMINISTRATOR) Anatomical Region Laterality Modality Pelvis Digital Radiogra phy 04/29/2024 7:28 AM TRAVEL ADMINISTRATOR Impressions 04/29/2024 8:32 AM TRAVEL ADMINISTRATOR IMPRESSION: No acute fracture identified. No metallic objects identified. Report dictated by David Denis MD, (global supply chain vice president). Wilfredo Crane MD have personally reviewed and interpreted this examination/study. > Interpreting Provider: Wilfredo Bach MD on 04/29/2024 8:32 AM Narrative 04/29/2024 8:32 AM TRAVEL ADMINISTRATOR PROCEDURE: XR PELVIS 1 OR 2VW, DATE/TIME OF EXAM: 04/28/2024 5:40 PM, LOCATION [facility] INDICATION: R53.1: Weakness ADDITIONAL CLINICAL INFORMATION: Ordering [...] DATE/TIME OF EXAM: 04/28/2024 5:40 PM, LOCATION [facility] INDICATION: R53.1: Weakness ADDITIONAL CLINICAL INFORMATION: Ordering [...] identified. Report dictated by David Denis MD, (global supply chain vice president). Wilfredo Crane MD have personally reviewed and interpreted this examination/study. > Interpreting Provider: Wilfredo Bach MD on 04/29/2024 8:32 AM Tristan Quinn MD DIAGNOSTIC IMAGING O RDERABLES * TROPONIN-I HIGH SENSITIVE REFLEX 1HOUR (04/28/2024 1:26 PM TRAVEL ADMINISTRATOR) Troponin I High Sensitive 4 <=35 ng/L 04/28/2024 2:11 PM TRAVEL ADMINISTRATOR [facility] Delta Troponin I HS 04/28/2024 2:11 PM [facility] Comment:Delta value intentio darlene not calculated. Baseline to 1 hour specimen collection interval exceeded. Blood BLOOD SPECIMEN / Unknown Venipuncture / Unknown 04/28/2024 1:26 PM TRAVEL ADMINISTRATOR 04/28/2024 1:32 PM TRAVEL ADMINISTRATOR Noam Jeff MD LAB - CHEMISTRY GHAZALA CABRAL Performing Organization Address City/[facility]/ZIP Co de Phone Number [facility] [address] [place] [address], [place] [phone] * (ABNORMAL) LIPID PROFILE (04/28/2024 11:48 AM TRAVEL ADMINISTRATOR) [facility] Cholesterol Total 187 <200 mg/dL 04/28/2024 12:32 PM [facility] HDL 44 >40 mg/dL 04/28/2024 12:32 PM [facility] Comment: ATP III Classification of HDL Cholesterol: <40 mg/dL: Considered a major risk factor. >60 mg/dL: Considered a negative risk factor. LDL Calculated 122(H) <100 mg/dL 04/28/2024 12:32 PM [facility] Comment: ATP III Classification of LDL Cholesterol: <100 mg/dL: Optimal 100 - 129 mg/dL: Near Optimal/Above Optimal 130 - 159 mg/dL: Borderline High 160 - 189 mg/dL: High >190 mg/dL: Very High Triglycerides 107 <150 mg/dL 04/28/2024 12:32 PM [facility] Comment: ATP III Classification of Triglycerides: <150 mg/dL: Normal 150 - 199 mg/dL: Borderline High 200 - 400 mg/dL: High >500 mg/dL: Very High Blood BLOOD SPECIMEN / Unknown Venipuncture / Unknown 04/28/2024 11:48 AM TRAVEL ADMINISTRATOR 04/28/2024 12:00 PM TRAVEL ADMINISTRATOR Noam Jeff MD LAB - CHEMISTRY GHAZALA CABRAL [facility] [address] [place] [phone], [place] [phone] * BLOOD TYPE VERIFICATION (04/28/2024 11:45 AM TRAVEL ADMINISTRATOR) ABO Rh A POS 04/28/2024 12:33 PM TRAVEL ADMINISTRATOR [facility] Blood Bank BLOOD SPECIMEN / Unknown 04/28/2024 11:45 AM TRAVEL ADMINISTRATOR 04/28/2024 12:00 PM TRAVEL ADMINISTRATOR Noam Jeff MD LAB - BLOOD BANK ORD ERABLES [facility] [address] [place] [address], [facility] [phone] * INR WHOLE BLOOD - POINT OF CARE (IP) STROKE (04/28/2024 9:35 AM TRAVEL ADMINISTRATOR) INR 0.9 0.9 - 1.2 04/28/2024 12:02 PM TRAVEL ADMINISTRATOR [facility] Device [id number] 04/28/2024 12:02 PM TRAVEL ADMINISTRATOR [facility] [employer] ID [id number] 04/28/2024 12:02 PM [facility] Blood BLOOD SPECIMEN / Unknown 04/28/2024 9:35 AM TRAVEL ADMINISTRATOR 04/28/2024 12:01 PM TRAVEL ADMINISTRATOR Noam Jeff MD LAB - POINT OF CARE ORDERABLES Performing Organization Address City/[facility]/ZIP Co de Phone Number [facility] [address] [place] [address], [place] [phone] * CREATININE - POCT INTERFACED (04/28/2024 9:35 AM TRAVEL ADMINISTRATOR) Creatinine POCT 0.82 0.30 - 1.30 mg/dL 04/28/2024 9:46 AM [facility] eGFR >90 >=90 mL/min/1.7 3 m2 04/28/2024 9:46 AM [facility] Blood BLOOD SPECIMEN / Unknown 04/28/2024 9:35 AM TRAVEL ADMINISTRATOR 04/28/2024 9:46 AM TRAVEL ADMINISTRATOR Noam Jeff MD LAB - POINT OF CARE ORDERABLES [facility] [address] [place] [address], [facility] [phone] * (ABNORMAL) PT-INR [facility] (04/28/2024 9:23 AM TRAVEL ADMINISTRATOR) [facility] PT 12.0(L) 12.1 - 14.8 Seconds 04/28/2024 9:59 AM [facility] INR 0.9 See Comment 04/28/2024 9:59 AM [facility] Comment:The suggested therap eutic range for standard coumadin (warfarin) therapy is an INR of 2.0-3.0. For high-risk patients (Mechanical Mitral Valve Prosthesis, etc.), the suggested prophylactic therapeutic range is an INR of 2.5-3.5. Blood BLOOD SPECIMEN / Unknown Venipuncture / Unknown 04/28/2024 9:23 AM TRAVEL ADMINISTRATOR 04/28/2024 9:27 AM TRAVEL ADMINISTRATOR Chaparro Hines MD LAB - COAGULATION OR DERABLES Performing Organization Address City/[facility]/ZIP Co de Phone Number [address] [address], [facility] [phone] * TYPE + SCREEN PANEL (04/28/2024 9:23 AM TRAVEL ADMINISTRATOR) [facility] Antibody Screen NEG 10:15 AM TRAVEL ADMINISTRATOR [facility] ABO Rh A POS 04/28/2024 10:15 AM TRAVEL ADMINISTRATOR [facility] Blood Bank BLOOD SPECIMEN / Unknown Venipuncture / Unknown 04/28/2024 9:23 AM TRAVEL ADMINISTRATOR 04/28/2024 9:37 AM TRAVEL ADMINISTRATOR Chaparro Hines MD LAB - BLOOD BANK ORD ERABLES [facility] [address] [place] [address], [facility] [phone] * (ABNORMAL) CBC W AUTO DIFFERENTIAL (04/28/2024 9:23 AM TRAVEL ADMINISTRATOR) [facility] WBC 12.1(H) 4.0 - 10.7 x10E9/L 04/28/2024 9:41 AM [facility] RBC Count 4.59 4.30 - 5.80 x10E12/L 04/28/2024 9:41 AM [facility] Hemoglobin 14.1 13.3 - 17.5 g/dL 04/28/2024 9:41 AM [facility] Hematocrit 41.5 38.7 - 51.1 % 04/28/2024 9:41 AM [facility] MCV 90.4 80.0 - 98.0 fL 04/28/2024 9:41 AM [facility] MCH 30.7 26.7 - 33.6 pg 04/28/2024 9:41 AM [facility] MCHC 34.0 31.7 - 36.3 g/dL 04/28/2024 9:41 AM [facility] RDW-CV 13.2 11.3 - 14.8 % 04/28/2024 9:41 AM [facility] Platelet Count 239 150 - 420 x10E9/L 04/28/2024 9:41 AM [facility] MPV 11.5(H) 7.8 - 11.4 fL 04/28/2024 9:41 AM [facility] Neutrophil % 87.6(H) 41.0 - 74.0 % 04/28/2024 9:41 AM [facility] Lymphocyte % 4.0(L) 17.0 - 47.0 % 04/28/2024 9:41 AM [facility] Monocyte % 7.5 3.0 - 11.0 % 04/28/2024 9:41 AM [facility] Eosinophil % 0.0 0.0 - 7.0 % 04/28/2024 9:41 AM [facility] Basophil % 0.4 0.0 - 1.6 % 04/28/2024 9:41 AM [facility] Immature Granulocytes % 0.5 0.0 - 1.0 % 04/28/2024 9:41 AM [facility] Neutrophil Absolute 10.58(H) 1.60 - 7.50 x10E9/L 04/28/2024 9:41 AM [facility] Lymphocyte Absolute 0.48(L) 1.00 - 4.40 x10E9/L 04/28/2024 9:41 AM TRAVEL ADMINISTRATOR [facility] Monocyte Absolute 0.90 0.15 - 1.00 x10E9/L 04/28/2024 9:41 AM [facility] Eosinophil Absolute 0.00 0.00 - 0.60 x10E9/L 04/28/2024 9:41 AM [facility] Basophil Absolute 0.05 0.00 - 0.13 x10E9/L 04/28/2024 9:41 AM [facility] Blood BLOOD SPECIMEN / Unknown Venipuncture / Unknown 04/28/2024 9:23 AM TRAVEL ADMINISTRATOR 04/28/2024 9:36 AM [facility] Chaparro Hines MD LAB - HEMATOLOGY ORD ERABLES [facility] [address] [place] [address], [facility] [phone] Care Teams Veneer Jointer Relationship Specialty [place] [address] [facility] [address] [place] [id number] PCP - General Internal Medicine 04/28/24
--- OUTSIDE RECORDS SUMMARY | 2024-09-02 12:15 | XMS_ITS | Referral Summary ---
Author Organization [facility] Address [address] [facility] [place] [address] Care Team Providers Care Plasterer Helper Name Role Phone Clifton Garcia MD Primary Care Provider [phone] Source Comments [facility],non-owned Affiliates and Associated Physician Practices is amultiple site organization consisting of ambulatory clinics and hospital sitesin [place], [place], [place] and [place]. This disclosure is being madepursuant to the Care Everywhere program and may not contain all information available regarding this patient. Last updated 18.[facility] Allergies No known active allergies Medications * [...] Recorded Patient Health Questionnaire-2 Score 0 05/12/2024 [facility] - Occupational Stress Questionnaire Answer Date Recorded [...] any time in the past 12 m [facility], were you homeless or living in a alf (including now)? No 04/28/2024 Sex and Gender Information Value Date Recorded Sex Assigned at Not on file Gender Identity Not on file Sexual Orientation Not on file Last Filed Vital Signs Vital Sign Reading Time Taken Comments Blood Pressure 138/103 06/02/2024 7:26 PM [employer] Pulse 101 06/02/2024 7:26 PM [employer] Temperature 36.4 C (97.5 F) 06/02/2024 7:34 AM [employer] Respiratory Rate 18 06/02/2024 4:27 AM [employer] Oxygen Saturation 98% 06/02/2024 7:34 AM [employer] Inhaled Oxygen Concentration 28% 05/06/2024 7 :59 PM [employer] Weight 56.2 kg (124 lb) 05/27/2024 9:15 PM [employer] Height 177.8 cm (5' 10 ) 05/11/2024 8:00 AM [employer] Body Mass Index 17.79 05/11/2024 8:00 AM [employer] Functional Status Functional Status Response Date of [...] COMPREHENSIVE METABOLIC PANEL Routine 05/29/2024 8:44 PM [employer] HEMOGLOBIN A1C Add on 05/02/2024 9:09 AM [employer]RA[employer] from Last 3 Months or Most Recently Relevant to Health Maintenance Results * (ABNORMAL) COMPREHENSIVE METABOLIC PANEL (05/29/2024 8:44 PM [employer]RA[employer]) BUN 26 7 - 26 mg/dL 05/29/2024 9:45 PM [facility] Creatinine 0.94 0.71 - 1.16 mg/dL 05/29/2024 9:45 PM [facility] Sodium 140 136 - 145 mmol/L 05/29/2024 9:45 PM [facility] Potassium 4.0 3.5 - 4.5 mmol/L 05/29/2024 9:45 PM [facility] Chloride 103 98 - 107 mmol/L 05/29/2024 9:45 PM [facility] CO2 27 22 - 29 mmol/L 05/29/2024 9:45 PM [facility] Glucose 194(H) 70 - 99 mg/dL 05/29/2024 9:45 PM [facility] Calcium 9.5 8.4 - 10.2 mg/dL 05/29/2024 9:45 PM [facility] Protein Total 6.7 6.0 - 8.3 g/dL 05/29/2024 9:45 PM [facility] Albumin 3.2(L) 3.4 - 5.0 g/dL 05/29/2024 9:45 PM [facility] Bilirubin Total 0.3 0.2 - 1.2 mg/dL 05/29/2024 9:45 PM [facility] Alkaline Phosphatase 72 40 - 150 U/L 05/29/2024 9:45 PM [facility] ALT 32 5 - 55 U/L 05/29/2024 9:45 PM [facility] AST 17 5 - 34 U/L 05/29/2024 9:45 PM [facility] Anion Gap 10 6 - 16 05/29/2024 9:45 PM [facility] BUN/Creatinine Ratio 28(H) 7 - 23 05/29/2024 9:45 PM [facility] Osmolality Calculated 300(H) 275 - 295 mOsm/kg 05/29/2024 9:45 PM [facility] Albumin/Globulin Ratio 0.9(L) 1.1 - 2.3 05/29/2024 9:45 PM [facility] eGFR by CKD-EPI >90 >=90 mL/min/1.7 3 m2 05/29/2024 9:45 PM [facility] Blood BLOOD SPECIMEN / Unknown Lab Venipuncture / Unknown 05/29/2024 8:44 PM [employer] 05/29/2024 9:15 PM [facility] Oral Nguyen MD LAB - CHEMISTRY O RDERABLES [facility] [address] [place] [id number], [facility] [phone] * (ABNORMAL) HEMOGLOBIN A1C (05/02/2024 9:09 AM [facility]) Hemoglobin A1c 8.5(H) <=5.6 % 05/02/2024 2:42 PM [facility] Estimated Average Glucose 197 mg/dL 05/02/2024 2:42 PM [facility] Comment: HbA1c Interpretation: Normal : < 5.7% Pre-diabetes: 5.7-6.4% Diabetes: Equal to or greater than 6.5% Test results diagnostic of diabetes should be repeated for confirmation. Treatment target values recommended by ADA and other clinical organizations should be used to evaluate metabolic control in patients. Reference: [place] [employer], Standards of Care in Diabetes -2020 In patients 70 years and older consider HbA1c target range of 7.0-7.5% (Reference: Rico Mercedes et al. JAMDA. 2012) The Sebia assay for the measurement of HbA1c is a National Glycohemoglobin Standardization Program (NGSP) certified method. Blood BLOOD SPECIMEN / Unknown Venipuncture / Unknown 05/02/2024 9:09 AM [employer] 05/02/2024 9:20 AM [employer] Martín Daly DO LAB - CHEMISTRY GHAZALA CABRAL Performing Organization Address City/State/[facility] Co de Phone Number [facility] [address] [place] [address], [facility] [phone] from Last 3 Months or Most Recently Relevant to Health Maintenance Advance Directives * Full Code (Latest Code Status on File) Date Activated Date Inactivated Comments 04/28/2024 10:02 AM 06/02/2024 9:04 PM Care Teams Plasterer Helper Relationship Specialty [place] [id number] [address] [facility] [address] [place] [address] PCP - General Internal Medicine 04/28/24
--- OUTSIDE RECORDS SUMMARY | 2024-09-02 12:15 | XMS_ITS | Clinical Summary ---
Author Organization [facility] Physician Office Building [address] [place] [phone] Care Team Providers Care Publications Writer Name Role Phone Franck Garica MD Primary Care Provider [phone] Allergies No known active allergies Medications acetaminophen [...] 06/03/2024 Assessment & Plan (07/06/2024 11:09 AM GAS ENGINE PERFORMANCE ENGINEER): Hypotension has resolved, patient has not required use of midodrine. Midodrine discontinued. Continue to monitor Assessment & Plan (06/28/2024 1:34 PM GAS ENGINE PERFORMANCE ENGINEER): No further hypotensive episodes, patient denies dizziness with participation in therapy. Blood pressure was actually been higher. If this persists we will need to start an antihypertensive. Midodrine will remain on hold. Continue to monitor Assessment & Plan (06/23/2024 6:03 PM GAS ENGINE PERFORMANCE ENGINEER): Blood pressure has significantly improved. Midodrine has not been dosed due to hold parameters. We will place midodrine on hold. Monitor blood pressure Assessment & Plan (06/22/2024 9:07 AM GAS ENGINE PERFORMANCE ENGINEER): This is chronic but currently stable. We will continue midodrine 2.5 mg b.i.d.. Assessment & Plan (06/21/2024 6:18 PM GAS ENGINE PERFORMANCE ENGINEER): As patient's strength improves, blood pressure has rebounded. We will decrease midodrine to 2.5 mg b.i.d. with hold parameters in place. Assessment & Plan (06/20/2024 7:28 AM GAS ENGINE PERFORMANCE ENGINEER): This is chronic and currently stable. We will continue midodrine 10 mg b.i.d. Assessment & Plan (06/10/2024 2:44 PM GAS ENGINE PERFORMANCE ENGINEER): He had a witnessed episode of syncope [...] pressure. Assessment & Plan (06/08/2024 11:56 AM GAS ENGINE PERFORMANCE ENGINEER): Blood pressure has rebounded, we will place midodrine on hold Assessment & Plan (06/04/2024 10:30 PM GAS ENGINE PERFORMANCE ENGINEER): Blood pressure so far well controlled, patient currently asymptomatic. Continue scheduled midodrine 10 mg t.i.d.. Patient has not displayed any hypertensive episodes. Hold parameters in place Assessment & Plan (06/03/2024 1:36 PM GAS ENGINE PERFORMANCE ENGINEER): BP stable, mildly elevated. Is on Midodrine q8h to be held with MAP>80 per Neurology. History of stroke 06/03/2024 Assessment & Plan (07/06/2024 11:12 AM GAS ENGINE PERFORMANCE ENGINEER): Remains weak but is slowly making improvements with strength and endurance. Continue aspirin, atorvastatin, Plavix, blood pressure management. Assessment & Plan (06/28/2024 1:36 PM GAS ENGINE PERFORMANCE ENGINEER): No new neurologic changes, dysphagia persists although has improved. Modified barium swallow was postponed until tomorrow. Continue post stroke prophylaxis with aspirin, atorvastatin, Plavix, blood pressure management. Assessment & Plan (06/21/2024 6:20 PM GAS ENGINE PERFORMANCE ENGINEER): Right-sided weakness and some dysphagia, slowly improving with therapy modalities. Pain is controlled. Continue post stroke prophylaxis with Plavix, aspirin, atorvastatin, blood pressure management Assessment & Plan (06/10/2024 2:58 PM GAS ENGINE PERFORMANCE ENGINEER): This is chronic and stable. Please continue aspirin 81 mg, atorvastatin, Plavix. Assessment & Plan (06/08/2024 11:55 AM GAS ENGINE PERFORMANCE ENGINEER): With persistent right-sided weakness. Patient is participating well in therapy and is slowly making progress with strength and endurance. Continue post stroke prophylaxis with aspirin, atorvastatin, Plavix, blood pressure control Assessment & Plan (06/06/2024 8:45 AM GAS ENGINE PERFORMANCE ENGINEER): I endorse admission to jail care. The patient is at risk of [...] care. Assessment & Plan (06/03/2024 1:28 PM GAS ENGINE PERFORMANCE ENGINEER): L MCA stroke with residual effects of dysphagia & R-sided weakness. Continue ASA, Statin, BP & DM control. PT/OT/ST to assess. 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 Last week was upgraded to pureed solids with nectar thickened liquids and has been attempting to advance with speech therapy. Has not required tube feed for nutrition, was started on ensure enlive with each meal Assessment & Plan (06/30/2024 11:34 PM GAS ENGINE PERFORMANCE ENGINEER): Patient had modified barium swallow performed 06/29/2024 with the following recommendations: Puree solids and [place] thick liquids (initially with CSR advancing to PO diet per treating CSR recommendations) Medication Administration: per tube Compensatory Strategies/Modifications: Sit upright at 90' during all oral intake, Small bites, Small sips, and Dry swallow 2-3 time(s) between bites/sips Spoke with house CSR, is hopeful to advanced quickly as patient seemed to do very well with his swallow study. We will continue current tube feeds for now with Glucerna 1.2 calories 360 cc 5 times daily. Hopeful that patient's p.o. intake will improve quickly and we will be able to reassess nutritional status and need for further tube feed. Assessment & Plan (06/23/2024 6:08 PM GAS ENGINE PERFORMANCE ENGINEER): Working with CSR - patient was making good progress, tolerating ice chips. CSR requesting to repeat modified barium swallow which will be performed in a.m.. Tolerating current tube feeds with Glucerna 1.2 heidi 360 cc 5 times per day followed by 30 cc water flushes Assessment & Plan (06/08/2024 11:54 AM GAS ENGINE PERFORMANCE ENGINEER): Patient is now tolerating tube feeds well without nausea, abdominal pain, emesis. He is working hard with speech therapy, CSR reports that he has been tolerating all trials of liquids and pudding/applesauce. We will order repeat modified barium swallow per CSR request Assessment & Plan (06/04/2024 10:23 PM GAS ENGINE PERFORMANCE ENGINEER): Adjustment in tube feeds have significantly reduced GI symptoms. Continue Glucerna 1.2 calorie boluses 360cc , 5 times per day followed by a 30 cc water flush after each feeding. Speech therapy will continue to follow, we will monitor for improved strength with swallow. Assessment & Plan (06/03/2024 1:35 PM GAS ENGINE PERFORMANCE ENGINEER): PEG in place with bolus feeds. Not tolerating bolus feeds well currently per nursing. Have reduced water flush to 30ml after feeding, continue bolus feeding 5x/d but nursing can run over pump. Will monitor. CSR to follow. Urinary retention 06/03/2024 Assessment & Plan (07/06/2024 11:11 AM GAS ENGINE PERFORMANCE ENGINEER): Resolved, continue finasteride Assessment & Plan (06/30/2024 11:34 PM GAS ENGINE PERFORMANCE ENGINEER): Patient continues to void well, we will continue finasteride Assessment & Plan (06/23/2024 6:09 PM GAS ENGINE PERFORMANCE ENGINEER): Patient has been voiding without difficulty using urinal. Continue finasteride 5 mg daily Assessment & Plan (06/03/2024 1:29 PM GAS ENGINE PERFORMANCE ENGINEER): Noted in hospital. Etiology unknown. Likely s/t neurogenic. Will have staff bladder scan & monitor for need for ISC. PEG (percutaneous endoscopic gastrostomy) status 06/03/2024 Assessment & Plan (06/22/2024 9:07 AM GAS ENGINE PERFORMANCE ENGINEER): We will continue tube feedings for nutrition. I appreciate the input from speech therapy and the dietitian. Smoker 01/06/2019 Type 2 diabetes mellitus 03/09/2017 Assessment & Plan (07/08/2024 5:31 PM GAS ENGINE PERFORMANCE ENGINEER): Pending ER evaluation, continue insulin aspart, insulin glargine, metformin. Assessment & Plan (07/06/2024 11:09 AM GAS ENGINE PERFORMANCE ENGINEER): A1c 7.6, Accu-Cheks well controlled with rare use sliding scale. Continue Lantus 30 units q.h.s., metformin 1000 mg b.i.d. Assessment & Plan (06/30/2024 11:29 PM GAS ENGINE PERFORMANCE ENGINEER): Accu-Cheks ranging from 114-220 with a hemoglobin A1c of 7.6. Continue Lantus 30 units q.h.s., metformin 1000 mg b.i.d., sliding scale insulin with meals Assessment & Plan (06/28/2024 1:36 PM GAS ENGINE PERFORMANCE ENGINEER): A1c 7.6, Accu-Cheks ranging from 111-209. Continue metformin 1000 mg b.i.d., Lantus 30 units q.h.s., sliding scale insulin with meals Assessment & Plan (06/22/2024 9:07 AM GAS ENGINE PERFORMANCE ENGINEER): This is chronic but currently stable. We will continue to monitor point of care glucose and labs. We will continue aspirin, atorvastatin, insulin aspart, insulin glargine, and metformin. Assessment & Plan (06/21/2024 6:20 PM GAS ENGINE PERFORMANCE ENGINEER): A1c 7.6, Accu-Cheks 144-223 continue Lantus 30 units q.h.s., metformin 1000 mg b.i.d., sliding scale insulin with meals Assessment & Plan (06/20/2024 7:28 AM GAS ENGINE PERFORMANCE ENGINEER): This is chronic and stable. We will continue insulin aspart and insulin glargine. We will continue scripting of metformin. We will follow point of care glucose. Assessment & Plan (06/10/2024 2:58 PM GAS ENGINE PERFORMANCE ENGINEER): This is chronic and stable. Please continue metformin Assessment & Plan (06/08/2024 11:53 AM GAS ENGINE PERFORMANCE ENGINEER): A1c 7.6, Accu-Cheks ranging from 177 to 303. We will increase metformin to 1000 mg b.i.d., continue Lantus 30 units q.h.s. with sliding scale insulin t.i.d. a.c. Assessment & Plan (06/04/2024 10:28 PM GAS ENGINE PERFORMANCE ENGINEER): A1c 7.6, blood sugars ranging from 140-310. Continue Lantus 30 units q.h.s., sliding scale insulin t.i.d., metformin 500 mg b.i.d.. If blood sugars remain elevated we will consider increasing metformin dose Assessment & Plan (06/03/2024 1:40 PM GAS ENGINE PERFORMANCE ENGINEER): A1c ordered in am. Continue insulin + Metformin currently & Monitor BS. Hyperlipidemia 03/09/2017 Assessment & Plan (07/08/2024 5:34 PM GAS ENGINE PERFORMANCE ENGINEER): Chronic, stable. Continue atorvastatin Assessment & Plan (06/20/2024 7:28 AM GAS ENGINE PERFORMANCE ENGINEER): This is chronic and stable. We will continue atorvastatin 80 mg daily Assessment & Plan (06/10/2024 2:57 PM GAS ENGINE PERFORMANCE ENGINEER): This is chronic and stable. Please continue atorvastatin Resolved Problems Problem Noted Date Diagnosed Date Resolved Date Syncope and collapse 07/08/2024 025 Assessment & Plan (07/08/2024 5:32 PM GAS ENGINE PERFORMANCE ENGINEER): He experienced an unwitnessed fall. The therapist [...] Department Care Team Description 07/08/2024 12:43 PM GAS ENGINE PERFORMANCE ENGINEER - 07/13/2024 2:20 PM GAS ENGINE PERFORMANCE [place] [address] Lizet Sotelo MD Lun, Yu, MD Lopez, Manuel Emilio, MD Syncope and collapse (Primary Dx); Sepsis due to Escherichia coli, unspecified whether acute organ dysfunction present (HCC); Benign prostatic hyperplasia, unspecified whether lower urinary tract symptoms present Discharge Disposition: Discharge to SNF 07/08/2024 NH/SNF Visit [facility] [address] [phone] Percy Collins MD Syncope and collapse (Primary Dx); Type 2 diabetes mellitus without complication, with long-term current use of insulin (HCC); Dysphagia as late effect of cerebrovascular accident (CVA); PEG (percutaneous endoscopic gastrostomy) status (HCC); Hyperlipidemia, unspecified hyperlipidemia type 07/06/2024 NH/SNF Visit [facility] Post [address] [phone] Pat Knight PA Neurogenic orthostatic hypotension (HCC) (Primary Dx); History of stroke; Type 2 diabetes mellitus without complication, with long-term current use of insulin (HCC); Dysphagia as late effect of cerebrovascular accident (CVA); Urinary retention 07/01/2024 Documentation [facility] Post Acute Care [address] [phone] Percy Collins MD 06/30/2024 Orders Only [facility] Medical [facility] Hospitalists [address] [place] [phone] Pat Knight PA 06/30/2024 NH/SNF Visit [facility] Post Acute Care [address] [phone] Pat Knight PA Dysphagia as late effect of cerebrovascular accident (CVA) (Primary Dx); Type 2 diabetes mellitus without complication, with long-term current use of insulin (HCC); Urinary retention 06/29/2024 1:00 PM GAS ENGINE PERFORMANCE ENGINEER - 06/29/2024 11:59 PM GAS ENGINE PERFORMANCE ENGINEER Hospital Encounter [facility] [address] [place] [address] Dysphagia as late effect of cerebrovascular accident (CVA) Discharge Disposition: Discharge to home or self care 06/29/2024 1:00 PM GAS ENGINE PERFORMANCE ENGINEER Therapy [facility] OP Speech Therapy [address] [address] Edson Talbert, CSR Dysphagia as late effect of cerebrovascular accident (CVA) (Primary Dx); Oropharyngeal dysphagia 06/28/2024 NH/SNF Visit [facility] Medical [facility] Post Acute Care [address] [phone] Pat Knight PA Type 2 diabetes mellitus without complication, with long-term current use of insulin (HCC) (Primary Dx); Neurogenic orthostatic hypotension (HCC); History of stroke 06/23/2024 NH/SNF Visit [facility] Medical [facility] Post [facility] [address] [phone] Pat Knight PA Dysphagia as late effect of cerebrovascular accident (CVA) (Primary Dx); Neurogenic orthostatic hypotension (HCC); Urinary retention 06/22/2024 Orders Only [facility] Medical [facility] Post Acute Care [address] [phone] Pat Knight PA Dysphagia as late effect of cerebrovascular accident (CVA) (Primary Dx) 06/21/2024 NH/SNF Visit [facility] Medical [facility] Post [facility] [address] [phone] Pat Knight PA Type 2 diabetes mellitus without complication, with long-term current use of insulin (HCC) (Primary Dx); History of stroke; Neurogenic orthostatic hypotension (HCC) 06/18/2024 NH/SNF Visit [facility] Medical [facility] Post Acute Care [address] [phone] Percy Collins MD Type 2 diabetes mellitus without complication, with long-term current use of insulin (HCC) (Primary Dx); PEG (percutaneous endoscopic gastrostomy) status (HCC); Neurogenic orthostatic hypotension (HCC); History of stroke 06/15/2024 NH/SNF Visit [facility] Medical [facility] Post [facility] Care [address] [phone] Percy Collins MD Hyperlipidemia, unspecified hyperlipidemia type (Primary Dx); Neurogenic orthostatic hypotension (HCC); Type 2 diabetes mellitus without complication, with long-term current use of insulin (HCC); PEG (percutaneous endoscopic gastrostomy) status (HCC); Dysphagia as late effect of cerebrovascular accident (CVA) 06/10/2024 NH/SNF Visit [facility] Post [facility] Care [address] [phone] Percy Collins MD Neurogenic orthostatic hypotension (HCC) (Primary Dx); PEG (percutaneous endoscopic gastrostomy) status (HCC); Dysphagia as late effect of cerebrovascular accident (CVA); Hyperlipidemia, unspecified hyperlipidemia type; Type 2 diabetes mellitus without complication, with long-term current use of insulin (HCC); History of stroke 06/09/2024 1:30 PM GAS ENGINE PERFORMANCE ENGINEER Therapy [facility] OP Speech Therapy [address] [address] Quique, Oksana L., CSR History of stroke (Primary Dx); Dysphagia as late effect of cerebrovascular accident (CVA); PEG (percutaneous endoscopic gastrostomy) status (HCC) 06/09/2024 9:03 AM GAS ENGINE PERFORMANCE ENGINEER - 06/09/2024 11:59 PM GAS ENGINE PERFORMANCE ENGINEER Hospital Encounter [facility] [address] [place] [address] Dysphagia as late effect of cerebrovascular accident (CVA) Discharge Disposition: Discharge to home or self care 06/08/2024 NH/SNF Visit [address] [phone] Pat Knight PA Type 2 diabetes mellitus without complication, with long-term current use of insulin (HCC) (Primary Dx); Dysphagia as late effect of cerebrovascular accident (CVA); History of stroke; Neurogenic orthostatic hypotension (HCC) 06/06/2024 NH/SNF Visit [address] [phone] Percy Collins MD History of stroke (Primary Dx); Hyperlipidemia, unspecified hyperlipidemia type; Type 2 diabetes mellitus without complication, with long-term current use of insulin (HCC); PEG (percutaneous endoscopic gastrostomy) status (HCC); Dysphagia as late effect of cerebrovascular accident (CVA); Urinary retention; Smoker; Vitamin D deficiency; Benign prostatic hyperplasia, unspecified whether lower urinary tract symptoms present; Orthostatic hypotension; Slow transit constipation 06/04/2024 Orders Only [facility] Hospitalists [address] [place] [phone] Tawny Batres NP 06/04/2024 NH/SNF Visit [address] [phone] Pat Knight PA Dysphagia as late effect of cerebrovascular accident (CVA) (Primary Dx); Type 2 diabetes mellitus without complication, with long-term current use of insulin (HCC); Neurogenic orthostatic hypotension (HCC) from Last 3 Months Surgical History Surgery Date Site/Laterality Comments LAMINECTOMY 06/23/2016 - 06/22/2017 Medical History Medical History Date Comments Anxiety Cancer (HCC) Diabetes mellitus (HCC) Hypertension Dental disease Dizziness Family History Medical History Relation Name Comments Cancer Father Deep Diabetes Father Deep Hearing loss Father Deep Relation Name Status Comments Father Deep Social History Tobacco Use Types Packs/Day Years Used Date Smoking Tobacco: Light Smoker Smokeless Tobacco: Never Tobacco Cessation:Ready to Q uit: Not Asked; Counseling Given: Not Answered [facility] Utilities Answer Date Recorded In the past [...] often do you attend chur ch or orthodox services? Never 07/09/2024 Do you belong to any clubs o r organizations such as religion groups, unions, fraternal or athletic groups, or [...] any time in the past [address] [facility], were you homeless or living in a residential (including now)? No 07/09/2024 Personal Safety Answer Date Recorded Have you ever been in or are you currently in a harmful physical or emotional relationship or is someone making you feel afraid or unsafe? 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 Not on file Not on file Not on libra e Obstetrics History Last Filed Vital Signs Vital Sign Reading Time Taken Comments Blood Pressure 145/105 07/13/2024 11:04 AM GAS ENGINE PERFORMANCE ENGINEER Pulse 92 07/13/2024 11:04 AM GAS ENGINE PERFORMANCE ENGINEER Temperature 36.4 C (97.5 F) 07/13/2024 11:04 AM GAS ENGINE PERFORMANCE ENGINEER Respiratory Rate 18 07/13/2024 11:04 AM GAS ENGINE PERFORMANCE ENGINEER Oxygen Saturation 98% 07/13/2024 11:04 AM GAS ENGINE PERFORMANCE ENGINEER Inhaled Oxygen Concentration - - Weight 75.3 kg (166 lb 0.1 oz) 07/12/2024 5:00 A M GAS ENGINE PERFORMANCE ENGINEER Height 180.3 cm (5' 11 ) 07/08/2024 8:00 PM GAS ENGINE PERFORMANCE ENGINEER Body Mass Index 23.15 07/08/2024 8:00 PM GAS ENGINE PERFORMANCE ENGINEER Plan of Treatment Health Maintenance Due Date [...] Lipid Panel 10/30/2024 10/31/2023 Hemoglobin A1C 12/03/2024 06/04/2024, 11/15/2018 eGFR 07/09/2025 07/09/2024, 06/23, 06/30/2024, Additional history exists Zoster Vaccine Completed 02/07/2024, 11/09/2023 Influenza Vaccine Completed 06/01/2024, , 07/13/2019 Procedures Procedure Name Priority Date/Time Associated Diagnosis Comments POCT GLUCOSE DEVICE Routine 07/13/2024 12:00 PM GAS ENGINE PERFORMANCE ENGINEER POCT GLUCOSE DEVICE Routine 07/13/2024 8 :09 AM GAS ENGINE PERFORMANCE ENGINEER POCT GLUCOSE DEVICE Routine 07/12/2024 7 :48 PM GAS ENGINE PERFORMANCE ENGINEER POCT GLUCOSE DEVICE Routine 07/12/2024 4 :59 PM GAS ENGINE PERFORMANCE ENGINEER POCT GLUCOSE DEVICE Routine 07/12/2024 11:48 AM GAS ENGINE PERFORMANCE ENGINEER POCT GLUCOSE DEVICE Routine 07/12/2024 7 :39 AM GAS ENGINE PERFORMANCE ENGINEER POCT GLUCOSE DEVICE Routine 07/11/2024 8 :03 PM GAS ENGINE PERFORMANCE ENGINEER POCT GLUCOSE DEVICE Routine 07/11/2024 5 :26 PM GAS ENGINE PERFORMANCE ENGINEER POCT GLUCOSE DEVICE Routine 07/11/2024 1 :26 PM GAS ENGINE PERFORMANCE ENGINEER POCT GLUCOSE DEVICE Routine 07/11/2024 11:41 AM GAS ENGINE PERFORMANCE ENGINEER POCT GLUCOSE DEVICE Routine 07/11/2024 8 :04 AM GAS ENGINE PERFORMANCE ENGINEER POCT GLUCOSE DEVICE Routine 07/10/2024 7 :48 PM GAS ENGINE PERFORMANCE ENGINEER POCT GLUCOSE DEVICE Routine 07/10/2024 5 :34 PM GAS ENGINE PERFORMANCE ENGINEER POCT GLUCOSE DEVICE Routine 07/10/2024 1 :08 PM GAS ENGINE PERFORMANCE ENGINEER POCT GLUCOSE DEVICE Routine 07/10/2024 12:10 PM GAS ENGINE PERFORMANCE ENGINEER POCT GLUCOSE DEVICE Routine 07/10/2024 8 :04 AM GAS ENGINE PERFORMANCE ENGINEER POCT GLUCOSE DEVICE Routine 07/09/2024 8 :17 PM GAS ENGINE PERFORMANCE ENGINEER POCT GLUCOSE DEVICE Routine 07/09/2024 5 :18 PM GAS ENGINE PERFORMANCE ENGINEER CTA HEAD NECK W WO CONTRAST IP Routine 07/09/2024 3:57 PM GAS ENGINE PERFORMANCE ENGINEER POCT GLUCOSE DEVICE Routine 07/09/2024 1 :03 PM GAS ENGINE PERFORMANCE ENGINEER EEG Routine 07/09/2024 12:34 PM GAS ENGINE PERFORMANCE ENGINEER POCT GLUCOSE DEVICE Routine 07/09/2024 11:29 AM GAS ENGINE PERFORMANCE ENGINEER POCT GLUCOSE DEVICE Routine 07/09/2024 7 :40 AM GAS ENGINE PERFORMANCE ENGINEER EGFR Routine 07/09/2024 3:25 AM GAS ENGINE PERFORMANCE ENGINEER DIFFERENTIAL AUTO Routine 07/09/2024 3:2 5 AM GAS ENGINE PERFORMANCE ENGINEER BASIC METABOLIC PANEL Routine 07/09/2024 3:25 AM GAS ENGINE PERFORMANCE ENGINEER CBC WITH AUTO DIFFERENTIAL Routine 07/09/2024 3:25 AM GAS ENGINE PERFORMANCE ENGINEER POCT GLUCOSE DEVICE Routine 07/08/2024 8 :10 PM GAS ENGINE PERFORMANCE ENGINEER SEPSIS LACTATE WITH REFLEX Timed 07/08/2024 8:03 PM GAS ENGINE PERFORMANCE ENGINEER TROPONIN T HIGH-SENSITIVITY 6-HOUR Timed 07/08/2024 8:03 PM GAS ENGINE PERFORMANCE ENGINEER TROPONIN T HIGH-SENSITIVITY 4-HR Timed 07/08/2024 5:59 PM GAS ENGINE PERFORMANCE ENGINEER URINALYSIS, MICROSCOPIC ONLY STAT 07/08/2024 4:20 PM GAS ENGINE PERFORMANCE ENGINEER URINE CULTURE STAT 07/08/2024 4:20 PM GAS ENGINE PERFORMANCE ENGINEER URINALYSIS AND REFLEX TO MICROSCOPIC AND CULTURE STAT 07/08/2024 4:20 PM GAS ENGINE PERFORMANCE ENGINEER SEPSIS LACTATE WITH REFLEX Timed 07/08/2024 4:19 PM GAS ENGINE PERFORMANCE ENGINEER TROPONIN T HIGH-SENSITIVITY 2-HOUR Timed 07/08/2024 3:36 PM GAS ENGINE PERFORMANCE ENGINEER PROTIME-INR STAT 07/08/2024 1:34 PM GAS ENGINE PERFORMANCE ENGINEER SEPSIS LACTATE WITH REFLEX STAT 07/08/2024 1:34 PM GAS ENGINE PERFORMANCE ENGINEER CT HEAD WO CONTRAST ED 07/08/2024 1 :31 PM GAS ENGINE PERFORMANCE ENGINEER XR CHEST 1 VIEW ED 07/08/2024 1:30 PM GAS ENGINE PERFORMANCE ENGINEER EGFR STAT 07/08/2024 1:04 PM GAS ENGINE PERFORMANCE ENGINEER DIFFERENTIAL AUTO STAT 07/08/2024 1:0 4 PM GAS ENGINE PERFORMANCE ENGINEER TROPONIN T HIGH-SENSITIVITY SERIES (BASELINE, 2HR, 4HR, 6HR) STAT 07/08/2024 1:04 PM GAS ENGINE PERFORMANCE ENGINEER COMPREHENSIVE METABOLIC PANEL STAT 07/08/2024 1:04 PM GAS ENGINE PERFORMANCE ENGINEER CBC WITH AUTO DIFFERENTIAL STAT 07/08/2024 1:04 PM GAS ENGINE PERFORMANCE ENGINEER ECG 12-LEAD STAT 07/08/2024 12:50 PM GAS ENGINE PERFORMANCE ENGINEER EGFR Routine 06/30/2024 5:40 AM GAS ENGINE PERFORMANCE ENGINEER COMPREHENSIVE METABOLIC PANEL Routine 06/30/2024 5:40 AM GAS ENGINE PERFORMANCE ENGINEER CBC WITHOUT DIFFERENTIAL Routine 06/30/2024 5:40 AM GAS ENGINE PERFORMANCE ENGINEER FL MODIFIED BARIUM SWALLOW W VIDEO Schedule Routine, Read Routine (OP Routine) 06/29/2024 2:01 PM GAS ENGINE PERFORMANCE ENGINEER Dysphagia as late effect of cerebrovascular accident (CVA) CBC WITHOUT DIFFERENTIAL Routine 06/14/2024 5:44 AM GAS ENGINE PERFORMANCE ENGINEER [place] MODIFIED BARIUM SWALLOW W VIDEO Schedule Routine, Read Routine (OP Routine) 06/09/2024 2:28 PM GAS ENGINE PERFORMANCE ENGINEER Dysphagia as late effect of cerebrovascular accident (CVA) EGFR Routine 06/08/2024 8:31 AM GAS ENGINE PERFORMANCE ENGINEER COMPREHENSIVE METABOLIC PANEL Routine 06/08/2024 8:31 AM GAS ENGINE PERFORMANCE ENGINEER CBC WITHOUT DIFFERENTIAL Routine 06/08/2024 8:31 AM GAS ENGINE PERFORMANCE ENGINEER EGFR Routine 06/04/2024 4:21 PM GAS ENGINE PERFORMANCE ENGINEER COMPREHENSIVE METABOLIC PANEL Routine 06/04/2024 4:21 PM GAS ENGINE PERFORMANCE ENGINEER MAGNESIUM Routine 06/04/2024 4:21 PM GAS ENGINE PERFORMANCE ENGINEER PHOSPHORUS Routine 06/04/2024 4:21 PM GAS ENGINE PERFORMANCE ENGINEER HEMOGLOBIN A1C Routine 06/04/2024 4:21 PM GAS ENGINE PERFORMANCE ENGINEER CBC WITHOUT DIFFERENTIAL Routine 06/04/2024 4:21 PM GAS ENGINE PERFORMANCE ENGINEER from Last 3 Months Results * POCT glucose (07/13/2024 12:00 PM GAS ENGINE PERFORMANCE ENGINEER) Glucose, POC 172 70 - 199 mg/dL Glucose comment 1 Use This Result [facility] [place] Blood 07/13/2024 12:0 0 PM GAS ENGINE PERFORMANCE ENGINEER 07/13/2024 12:00 PM GAS ENGINE PERFORMANCE ENGINEER us Vignesh Lopez MD LAB POCT ORDERABLES - DEV ICE Final Result Performing Organization Address [facility] de Phone Number [address] [place] [address] * (ABNORMAL) POCT glucose (07/13/2024 8:09 AM GAS ENGINE PERFORMANCE ENGINEER) Glucose, POC 213(H) 70 - 199 mg/dL Glucose comment 1 Use This Result [facility] Glucose comment 2 RN/MD Not[facility] Blood 07/13/2024 8:09 AM GAS ENGINE PERFORMANCE ENGINEER 07/13/2024 8:09 AM GAS ENGINE PERFORMANCE ENGINEER Vignesh Lopez MD LAB POCT ORDERABLES - DEV ICE Final Result Performing Organization Address [facility] de Phone Number [address] [address] * (ABNORMAL) POCT glucose (07/12/2024 7:48 PM GAS ENGINE PERFORMANCE ENGINEER) Glucose, POC 326(H) 70 - 199 mg/dL Glucose comment 1 Use This Result [facility] Glucose comment 2 RN/MD Not[facility] Blood 07/12/2024 7:48 PM GAS ENGINE PERFORMANCE ENGINEER 07/12/2024 7:48 PM GAS ENGINE PERFORMANCE ENGINEER Leilani Resendiz MD LAB POCT ORDERABLES - DEVICE Fin al Result Performing Organization Address [facility] de Phone Number [address] [place] [address] * (ABNORMAL) POCT glucose (07/12/2024 4:59 PM GAS ENGINE PERFORMANCE ENGINEER) Glucose, POC 217(H) 70 - 199 mg/dL Blood 07/12/2024 4:59 PM GAS ENGINE PERFORMANCE ENGINEER 07/12/2024 4:59 PM GAS ENGINE PERFORMANCE ENGINEER Leilani Resendiz MD LAB POCT ORDERABLES - DEVICE Fin al Result Performing Organization Address [facility] Co de Phone Number KARL [address] [address] * (ABNORMAL) POCT glucose (07/12/2024 11:48 AM GAS ENGINE PERFORMANCE ENGINEER) Glucose, POC 317(H) 70 - 199 mg/dL Blood 07/12/2024 11:4 8 AM GAS ENGINE PERFORMANCE ENGINEER 07/12/2024 11:48 AM GAS ENGINE PERFORMANCE ENGINEER Leilani Resendiz MD LAB POCT ORDERABLES - DEVICE Fin al Result Performing Organization Address [facility] Co de Phone Number KARL [address] [address] * (ABNORMAL) POCT glucose (07/12/2024 7:39 AM GAS ENGINE PERFORMANCE ENGINEER) Glucose, POC 224(H) 70 - 199 mg/dL Blood 07/12/2024 7:39 AM GAS ENGINE PERFORMANCE ENGINEER 07/12/2024 7:39 AM GAS ENGINE PERFORMANCE ENGINEER Leilani Resendiz MD LAB POCT ORDERABLES - DEVICE Fin al Result Performing Organization Address [facility] de Phone Number [address] [address] * (ABNORMAL) POCT glucose (07/11/2024 8:03 PM GAS ENGINE PERFORMANCE ENGINEER) Glucose, POC 326(H) 70 - 199 mg/dL Glucose comment 1 Use This Result [facility] Blood 07/11/2024 8:03 PM GAS ENGINE PERFORMANCE ENGINEER 07/11/2024 8:03 PM GAS ENGINE PERFORMANCE ENGINEER Leilani Resendiz MD LAB POCT ORDERABLES - DEVICE Fin al Result Performing Organization Address [facility] Co de Phone Number [address] [address] * (ABNORMAL) POCT glucose (07/11/2024 5:26 PM GAS ENGINE PERFORMANCE ENGINEER) Glucose, POC 325(H) 70 - 199 mg/dL Blood 07/11/2024 5:26 PM GAS ENGINE PERFORMANCE ENGINEER 07/11/2024 5:26 PM GAS ENGINE PERFORMANCE ENGINEER us Leilani Resendiz MD LAB POCT ORDERABLES - DEVICE Fin al Result Performing Organization Address [facility] de Phone Number [address]RYST[address] [place] [address] * (ABNORMAL) POCT glucose (07/11/2024 1:26 PM GAS ENGINE PERFORMANCE ENGINEER) Glucose, POC 283(H) 70 - 199 mg/dL Blood 07/11/2024 1:26 PM GAS ENGINE PERFORMANCE ENGINEER 07/11/2024 1:26 PM GAS ENGINE PERFORMANCE ENGINEER Result [facility] Leilani Resendiz MD LAB POCT ORDERABLES - DEVICE Fin al Result Performing Organization Address [facility] de Phone Number [address] [place] [address] * (ABNORMAL) POCT glucose (07/11/2024 11:41 AM GAS ENGINE PERFORMANCE ENGINEER) Glucose, POC 366(H) 70 - 199 mg/dL Glucose comment 1 Use This Result [facility] Glucose comment 2 RN/MD Notified [facility] Blood 07/11/2024 11:4 1 AM GAS ENGINE PERFORMANCE ENGINEER 07/11/2024 11:41 AM GAS ENGINE PERFORMANCE ENGINEER Result [facility] Leilani Resendiz MD LAB POCT ORDERABLES - DEVICE Fin al Result Performing Organization Address [facility] de Phone Number [address] [address] * (ABNORMAL) POCT glucose (07/11/2024 8:04 AM GAS ENGINE PERFORMANCE ENGINEER) Glucose, POC 264(H) 70 - 199 mg/dL Blood 07/11/2024 8:04 AM GAS ENGINE PERFORMANCE ENGINEER 07/11/2024 8:04 AM GAS ENGINE PERFORMANCE ENGINEER us Leilani Resendiz MD LAB POCT ORDERABLES - DEVICE Fin al Result Performing Organization Address [facility] Co de Phone Number [address]RY[address] [place] [address] * (ABNORMAL) POCT glucose (07/10/2024 7:48 PM GAS ENGINE PERFORMANCE ENGINEER) Glucose, POC 281(H) 70 - 199 mg/dL Glucose comment 1 Use This Result [facility] Blood 07/10/2024 7:48 PM GAS ENGINE PERFORMANCE ENGINEER 07/10/2024 7:48 PM GAS ENGINE PERFORMANCE ENGINEER Leilani Resendiz MD LAB POCT ORDERABLES - DEVICE Fin al Result Performing Organization Address [facility] de Phone Number [address] [place] [address] * (ABNORMAL) POCT glucose (07/10/2024 5:34 PM GAS ENGINE PERFORMANCE ENGINEER) Glucose, POC 366(H) 70 - 199 mg/dL Blood 07/10/2024 5:34 PM GAS ENGINE PERFORMANCE ENGINEER 07/10/2024 5:34 PM GAS ENGINE PERFORMANCE ENGINEER Leilani Resendiz MD LAB POCT ORDERABLES - DEVICE Fin al Result Performing Organization Address [facility] Co de Phone Number [address] [place] [address] * (ABNORMAL) POCT glucose (07/10/2024 1:08 PM GAS ENGINE PERFORMANCE ENGINEER) Glucose, POC 294(H) 70 - 199 mg/dL Blood 07/10/2024 1:08 PM GAS ENGINE PERFORMANCE ENGINEER 07/10/2024 1:08 PM GAS ENGINE PERFORMANCE ENGINEER Result [facility] Leilani Resendiz MD LAB POCT ORDERABLES - DEVICE Fin al Result Performing Organization Address [facility] Co de Phone Number [address] [place] [address] * (ABNORMAL) POCT glucose (07/10/2024 12:10 PM GAS ENGINE PERFORMANCE ENGINEER) Glucose, POC 332(H) 70 - 199 mg/dL Glucose comment 1 RN/MD Notified [facility] Blood 07/10/2024 12:1 0 PM GAS ENGINE PERFORMANCE ENGINEER 07/10/2024 12:10 PM GAS ENGINE PERFORMANCE ENGINEER Leilani Resendiz MD LAB POCT ORDERABLES - DEVICE Fin al Result Performing Organization Address [facility] Co de Phone Number KARL [address] [place] [address] * (ABNORMAL) POCT glucose (07/10/2024 8:04 AM GAS ENGINE PERFORMANCE ENGINEER) Glucose, POC 269(H) 70 - 199 mg/dL Blood 07/10/2024 8:04 AM GAS ENGINE PERFORMANCE ENGINEER 07/10/2024 8:04 AM GAS ENGINE PERFORMANCE ENGINEER Leilani Resendiz MD LAB POCT ORDERABLES - DEVICE Fin al Result Performing Organization Address [facility] Co de Phone Number [address] [place] [address] * (ABNORMAL) POCT glucose (07/09/2024 8:17 PM GAS ENGINE PERFORMANCE ENGINEER) Glucose, POC 387(H) 70 - 199 mg/dL Blood 07/09/2024 8:17 PM GAS ENGINE PERFORMANCE ENGINEER 07/09/2024 8:17 PM GAS ENGINE PERFORMANCE ENGINEER Leilani Resendiz MD LAB POCT ORDERABLES - DEVICE Fin al Result Performing Organization Address [facility] Co de Phone Number [address] [place] [address] * (ABNORMAL) POCT glucose (07/09/2024 5:18 PM GAS ENGINE PERFORMANCE ENGINEER) Glucose, POC 275(H) 70 - 199 mg/dL Glucose comment 1 Use This Result [facility] Blood 07/09/2024 5:18 PM GAS ENGINE PERFORMANCE ENGINEER 07/09/2024 5:18 PM GAS ENGINE PERFORMANCE ENGINEER us Leilani Resendiz MD LAB POCT ORDERABLES - DEVICE Fin al Result [facility] [address] [facility] Department [place] [address] * CTA Head Neck W WO Contrast (07/09/2024 3:57 PM GAS ENGINE PERFORMANCE ENGINEER) Anatomical Region Laterality Modality Head and Neck N/A Computed Tomogra phy 07/09/2024 4:24 PM GAS ENGINE PERFORMANCE ENGINEER Narrative 07/09/2024 8:21 PM GAS ENGINE PERFORMANCE ENGINEER EXAM DESCRIPTION: CTA HEAD NECK W WO [...] OTHER: No other significant abnormality. INTRACRANIAL VESSELS [place] OF [place]: The cervical internal carotid arteries [...] Sanjuanita Cleveland M.D. LC T: Report ID: [id number] Reading Location: [id number] Procedure Note Colette Cleveland MD - 07/09/2024 [...] OTHER: No other significant abnormality. INTRACRANIAL VESSELS [place] OF [place]: The cervical internal carotid arteries [...] by Sanjuanita Cleveland M.D. T: Report ID: [id number] Reading Location: [id number] us Leilani Resendiz MD IMG CT PROCEDURES Final Result * (ABNORMAL) POCT glucose (07/09/2024 1:03 PM GAS ENGINE PERFORMANCE ENGINEER) Glucose, POC 215(H) 70 - 199 mg/dL Glucose comment 1 Use This Result K[facility] Blood 07/09/2024 1:03 PM GAS ENGINE PERFORMANCE ENGINEER 07/09/2024 1:03 PM GAS ENGINE PERFORMANCE ENGINEER Result [facility] Leilani Resendiz MD LAB POCT ORDERABLES - DEVICE Fin al Result K[facility] [address] [facility] Department [place] [address] * EEG (07/09/2024 12:34 PM GAS ENGINE PERFORMANCE ENGINEER) Anatomical Region Laterality Modality Other Narrative 07/09/2024 12:46 PM GAS ENGINE PERFORMANCE ENGINEER Hilario Gilmore MD 07/09/2024 12:46 PM Reason [...] observed. Correlation with clinical findings is needed. Result Merlin Resendiz MD NEUROLOGY ORDERABLES Final Resul t * (ABNORMAL) POCT glucose (07/09/2024 11:29 AM GAS ENGINE PERFORMANCE ENGINEER) Glucose, POC 284(H) 70 - 199 mg/dL Glucose comment 1 Use This Result K[facility]L Blood 07/09/2024 11:2 9 AM GAS ENGINE PERFORMANCE ENGINEER 07/09/2024 11:29 AM GAS ENGINE PERFORMANCE ENGINEER Leilani Resendiz MD LAB POCT ORDERABLES - DEVICE Fin al Result Performing Organization Address City/[facility] Co de Phone Number KARL [address] [place] [address] * POCT glucose (07/09/2024 7:40 AM GAS ENGINE PERFORMANCE ENGINEER) Glucose, POC 147 70 - 199 mg/dL Glucose comment 1 Use This Result KARL Blood 07/09/2024 7:40 AM GAS ENGINE PERFORMANCE ENGINEER 07/09/2024 7:40 AM GAS ENGINE PERFORMANCE ENGINEER Leilani Resendiz MD LAB POCT ORDERABLES - DEVICE Fin al Result Performing Organization Address [facility] de Phone Number KARL [address] [address] * eGFR (07/09/2024 3:25 AM GAS ENGINE PERFORMANCE ENGINEER) eGFR >90 >=60 mL/min/1. 73 m2 Comment: [...] last reviewed 2021. Blood 07/09/2024 3:25 AM GAS ENGINE PERFORMANCE ENGINEER 07/09/2024 3:29 AM GAS ENGINE PERFORMANCE ENGINEER us Leilani Resendiz MD LAB BLOOD ORDERABLES Final Resul t [facility] [address] [facility] Department [place] [address] * (ABNORMAL) Differential, auto (07/09/2024 3:25 AM GAS ENGINE PERFORMANCE ENGINEER) Neutrophil abs 5.5 1.5 - 6.5 K/cumm Imm gran abs 0.0 0.0 - 0.1 K/cumm [facility] Lymphocyte abs 1.6 0.8 - 3.3 K/cumm [facility] Monocyte abs 0.9(H) 0.2 - 0.8 K/cumm [facility] Eosinophil abs 0.3 0.0 - 0.5 K/cumm [facility] Basophil abs 0.1 0.0 - 0.1 K/cumm [facility] Neutrophil pct 65.0 % [facility] Comment: Interpretive Data Percent cell count reference ranges are not reported, since discordance with absolute values may lead to misinterpretation of CBC data. Current Interpretive Data was last revised on 2017. Imm gran pct 0.5 % [facility] Comment: Interpretive Data Percent cell count reference ranges are not reported, since discordance with absolute values may lead to misinterpretation of CBC data. Current Interpretive Data was last revised on 2017. Lymphocyte pct 18.4 % [facility] Comment: Interpretive Data Percent cell count reference ranges are not reported, since discordance with absolute values may lead to misinterpretation of CBC data. Current Interpretive Data was last revised on 2017. Monocyte pct 11.1 % [facility] Comment: Interpretive Data Percent cell count reference ranges are not reported, since discordance with absolute values may lead to misinterpretation of CBC data. Current Interpretive Data was last revised on 2017. Eosinophil pct 3.8 % [facility] Comment: Interpretive Data Percent cell count reference ranges are not reported, since discordance with absolute values may lead to misinterpretation of CBC data. Current Interpretive Data was last revised on 2017. Basophil pct 1.2 % [facility] Comment: Interpretive Data Percent cell count reference ranges are not reported, since discordance with absolute values may lead to misinterpretation of CBC data. Current Interpretive Data was last revised on 2017. Blood 07/09/2024 3:25 AM GAS ENGINE PERFORMANCE ENGINEER 07/09/2024 3:29 AM GAS ENGINE PERFORMANCE ENGINEER Leilani Resendiz MD LAB BLOOD ORDERABLES Final Resul t Performing Organization Address [facility] Co de Phone Number [facility] [address] [place] [address] * (ABNORMAL) CBC with auto differential (07/09/2024 3:25 AM GAS ENGINE PERFORMANCE ENGINEER) WBC 8.5 3.8 - 9.9 K/cumm Hgb 14.1 13.0 - 17.5 g/dL [facility] Hct 43.7 38.9 - 50.3 % [facility] Plt 214 150 - 400 K/cumm [facility] MPV 11.7 9.1 - 12.3 fL [facility] RBC 4.59 4.30 - 5.80 M/cumm [facility] MCV 95.2 81.3 - 96.4 fL [facility] MCH 30.7 27.1 - 33.3 pg [facility] MCHC 32.3 32.3 - 35.7 g/dL [facility] RDW CV 13.9 11.1 - 14.9 % [facility] RDW SD 48.3(H) 35.7 - 48.1 fL [facility] NRBC abs 0.00 0.00 - 0.01 K/cumm [facility] Blood 07/09/2024 3:25 AM GAS ENGINE PERFORMANCE ENGINEER 07/09/2024 3:29 AM GAS ENGINE PERFORMANCE ENGINEER Leilani Reesndiz MD LAB BLOOD ORDERABLES Final Resul t Performing Organization Address [facility] de Phone Number KARL [address] [place] [address] * Basic metabolic panel (07/09/2024 3:25 AM GAS ENGINE PERFORMANCE ENGINEER) Sodium 138 135 - 145 mmol/L Potassium, pl 4.1 3.3 - 4.9 mmol/L [facility] Chloride 102 97 - 110 mmol/L [facility] CO2 26 22 - 32 mmol/L [facility] Anion gap 10 2 - 15 mmol/L [facility] BUN 14 6 - 25 mg/dL [facility] Creatinine 0.81 0.80 - 1.30 mg/dL [facility] Glucose 152 70 - 199 mg/dL [facility] Comment: Interpretive Data Fasting glucose >/= [...] 2022. Calcium 9.8 8.5 - 10.3 mg/dL [facility] Blood 07/09/2024 3:25 AM GAS ENGINE PERFORMANCE ENGINEER 07/09/2024 3:29 AM GAS ENGINE PERFORMANCE ENGINEER Leilani Resendiz MD LAB BLOOD ORDERABLES Final Resul t Performing Organization Address City/[facility] Co de Phone Number [address] [place] [address] * POCT glucose (07/08/2024 8:10 PM GAS ENGINE PERFORMANCE ENGINEER) Glucose, POC 96 70 - 199 mg/dL Glucose comment 1 RN/MD Notified [facility] Blood 07/08/2024 8:10 PM GAS ENGINE PERFORMANCE ENGINEER 07/08/2024 8:10 PM GAS ENGINE PERFORMANCE ENGINEER Leilani Resendiz MD LAB POCT ORDERABLES - DEVICE Fin al Result Performing Organization Address City/[facility]/ZIP Co de Phone Number [address] [place] [address] * Troponin T high-sensitivity 6-hour (07/08/2024 8:03 PM GAS ENGINE PERFORMANCE ENGINEER) Trop T hs 13 <=22 ng/L Comment: Interpretive Data For further hscTnT resources including the diagnostic algorithm and an aid in interpretation, copy and paste this link: https://nrl.[employer]cat[email or web address].org/show/hsTrop Current Interpretive Data last revised 2020. Trop T hs delta -3 ng/L KARL Trop T hs interp Insignificant [facility] Blood 07/08/2024 8:03 PM GAS ENGINE PERFORMANCE ENGINEER 07/08/2024 8:07 PM GAS ENGINE PERFORMANCE ENGINEER Lorraine Dumont MD LAB BLOOD ORDERABLES Final Resu lt KARL [address] [place] [address] * Sepsis Lactate w/ Reflex (07/08/2024 8:03 PM GAS ENGINE PERFORMANCE ENGINEER) Sepsis Lactate 1.4 0.7 - 2.0 mmol/L Blood 07/08/2024 8:03 PM GAS ENGINE PERFORMANCE ENGINEER 07/08/2024 8:07 PM GAS ENGINE PERFORMANCE ENGINEER Lizet Sotelo MD LAB BLOOD ORDERABLES F inal Result Performing Organization Address [facility]/ZIP Co de Phone Number [address]RYSTAL[address] [place] [address] * Troponin T high-sensitivity 4-hour (07/08/2024 5:59 PM GAS ENGINE PERFORMANCE ENGINEER) Trop T hs 11 <=22 ng/L Comment: Interpretive Data For further hscTnT resources including the diagnostic algorithm and an aid in interpretation, copy and paste this link: https://nrl.[employer]Med [employer].org/show/hsTrop Current Interpretive Data last revised 2020. Trop T hs delta -5 ng/L KARL Trop T hs interp Equivocal [facility] Blood 07/08/2024 5:59 PM GAS ENGINE PERFORMANCE ENGINEER 07/08/2024 6:01 PM GAS ENGINE PERFORMANCE ENGINEER Lorraine Dumont MD LAB BLOOD ORDERABLES Final Resu lt Performing Organization Address [facility]/ZIP Co de Phone Number KARL [address] [facility] [place] [address] * (ABNORMAL) Urinalysis reflex to microscopic and culture Urine, in and out catheter (07/08/2024 4:20PM GAS ENGINE PERFORMANCE ENGINEER) Color, ur Yellow Yellow Clarity, ur Cloudy(A) Clear [facility] Specific gravity, ur 1.018 1.003 - 1.030 [facility] pH, urine 6.0 [facility] Comment: Interpretive Data U rine pH is affected by diet, medications, systemic acid-base disturbances, and renal tubular function. pH may affect urinary stone formation. For example, urine pH below 6.0 may help reduce the tendency for calcium phosphate stones and pH greater than 6.0 may reduce the tendency for uric acid stone formation. Source: [facility] Current Interpretive Data was last revised on 2017 Protein, ur ql 1+(A) Negative [facility] Glucose, ur ql Negative Negative [facility] Ketones, ur Negative Negative [facility] Bilirubin, ur Negative Negative [facility] Blood, ur Negative Negative [facility] Urobilinogen, ur 2.0(A) <2.0 mg/dL [facility] Nitrite, ur Positive(A) Negative [facility] Leukocyte esterase, ur 4+(A) Negative [facility] UA reflex comment Reflex to microscopic UA will be performed. [facility] Urine, in and out catheter 07/08/2024 4:20 PM GAS ENGINE PERFORMANCE ENGINEER 07/08/2024 4:25 PM GAS ENGINE PERFORMANCE ENGINEER us Lizet Sotelo MD LAB MICROBIOLOGY - GEN ERAL ORDERABLES Final Result Performing Organization Address [facility]/ZIP Co de Phone Number KARL [address] [facility] [place] [address] * (ABNORMAL) Urinalysis, microscopic only (07/08/2024 4:20 PM GAS ENGINE PERFORMANCE ENGINEER) WBC, ur >50(A) 0 - 5 /HPF RBC, ur 6-10(A) 0 - 2 /HPF [facility] Bacteria, ur 4+(A) [facility] Mucous, ur Present(A) [facility] Culture Reflex Comment Reflex to urine culture will be performed. [facility] Urine, in and out catheter 07/08/2024 4:20 PM GAS ENGINE PERFORMANCE ENGINEER 07/08/2024 4:25 PM GAS ENGINE PERFORMANCE ENGINEER us Lizet Sotelo MD LAB URINE ORDERABLES F inal Result KARL [address] [facility] Department [place] [address] * (ABNORMAL) Urine culture Urine, in and out catheter (07/08/2024 4:20 PM GAS ENGINE PERFORMANCE ENGINEER) Report Final Report: Greater than or equal to 100,000 colonies/mL of Klebsiella pneumoniae Greater than or equal to 100,000 colonies/mL of Klebsiella pneumoniae #2 (.) Comment:Testing performed by : [facility], [address] [place]., [address] Organism KLEBSIELLA PNEUMONIAE [facility] Organism KLEBSIELLA PNEUMONIAE [facility] Urine, in and out catheter 07/08/2024 4:20 PM GAS ENGINE PERFORMANCE ENGINEER 07/08/2024 8:01 PM GAS ENGINE PERFORMANCE ENGINEER Narrative [facility] - 07/10/2024 3:41 PM GAS ENGINE PERFORMANCE ENGINEER Urine culture reflexed based upon urinalysis results. Testing performed by [facility] ([phone]) Organism Antibiotic Method Susceptibility Klebsiella pneumoniae Ampicillin [...] ERAL ORDERABLES Final Result Performing Organization Address City/[facility]/ZIP Co de Phone Number KRYSTAL[address] [place] [address] * (ABNORMAL) Sepsis Lactate w/ Reflex (07/08/2024 4:19 PM GAS ENGINE PERFORMANCE ENGINEER) Pathologist [facility] Sepsis Lactate 3.2(C) 0.7 - 2.0 mmol/L Comment:Critical Result call ed to and read back by [id number], DATE: 2024-07-08 16:56:38 BY: [id number] Blood 07/08/2024 4:19 PM GAS ENGINE PERFORMANCE ENGINEER 07/08/2024 4:25 PM GAS ENGINE PERFORMANCE ENGINEER Lizet Sotelo MD LAB BLOOD ORDERABLES F inal Result Performing Organization Address [facility]/ZIP Co de Phone Number [address] [place] [address] * Troponin T high-sensitivity 2-hour (07/08/2024 3:36 PM GAS ENGINE PERFORMANCE ENGINEER) [facility] Trop T hs 14 <=22 ng/L Comment: Interpretive Data For further hscTnT resources including the diagnostic algorithm and an aid in interpretation, copy and paste this link: [email or web address].[email or web address]/[email or web address] Current Interpretive Data last revised 2020. Trop T hs delta -2 ng/L KARL WASHINGTON Trop T hs interp Insignificant KARL Blood 07/08/2024 3:36 PM GAS ENGINE PERFORMANCE ENGINEER 07/08/2024 3:41 PM GAS ENGINE PERFORMANCE ENGINEER Lorraine Dumont MD LAB BLOOD ORDERABLES Final Resu lt Performing Organization Address City/[facility]/ZIP Co de Phone Number KRYSTAL[address] [place] [address] * (ABNORMAL) Sepsis Lactate w/ Reflex (07/08/2024 1:34 PM GAS ENGINE PERFORMANCE ENGINEER) Pathologist [facility] Sepsis Lactate 3.5(C) 0.7 - 2.0 mmol/L Comment:Critical Result call ed to and read back by [id number], DATE: 2024-07-08 14:05:44 BY: [id number] Blood 07/08/2024 1:34 PM GAS ENGINE PERFORMANCE ENGINEER 07/08/2024 1:36 PM GAS ENGINE PERFORMANCE ENGINEER Lizet Sotelo MD LAB BLOOD ORDERABLES F inal Result Performing Organization Address [facility] Co de Phone Number [facility] [address] [facility] [place] [address] * Protime-INR (07/08/2024 1:34 PM GAS ENGINE PERFORMANCE ENGINEER) Pathologist [facility] PT 12.9 12.0 - 14.6 sec INR 1.0 0.9 - 1.2 [facility] Comment: Ref Range High Interpretive data Oral anticoagulant therapeutic ranges: Venous thromboembolism prophylaxis or treatment: 2.0-3.0 CARDIOLOGY Standard range: 2.0-3.0 High-intensity range: 2.5-3.5 Refer to indication-specific guidelines for appropriate target ranges for prosthetic heart valve replacement. Current interpretive data was last revised on 2019. Blood 07/08/2024 1:34 PM GAS ENGINE PERFORMANCE ENGINEER 07/08/2024 1:36 PM GAS ENGINE PERFORMANCE ENGINEER Lizet Sotelo MD LAB BLOOD ORDERABLES F inal Result Performing Organization Address [facility] Co de Phone Number [place] [phone] [facility] [place] [place] [address] * CT Head WO Contrast (07/08/2024 1:31 PM GAS ENGINE PERFORMANCE ENGINEER) Anatomical Region Laterality Modality Head and Neck N/A Computed Tomogra phy 07/08/2024 1:41 PM GAS ENGINE PERFORMANCE ENGINEER Narrative 07/08/2024 1:44 PM GAS ENGINE PERFORMANCE ENGINEER EXAM DESCRIPTION: CT HEAD WO CONTRAST REASON [...] well-developed and well aerated. Debris in the otkag-qjlsfea-xpxa-left EACs. ORBITS: No acute abnormality. Right tangirnaq ocular lens replaced. OTHER: No other significant abnormality. IMPRESSION: No acute intracranial process with chronic findings as above. THIS IS AN ELECTRONICALLY VERIFIED FINAL REPORT 07/08/2024 1:44 PM - Electronically signed by Mike OLIVEIRA T: Report ID: [id number] Reading Location: [id number] Procedure Note Mike Madera MD - 07/08/2024 [...] portions of CT soft tissue neck with pyxnmiby87/06/2023. FINDINGS: BRAIN: No acute intra-axial hemorrhage. No [...] cells well-developed andwell aerated. Debris in the zrsjm-qcngube-johd-left EACs. ORBITS: No acute abnormality. Right tangirnaq ocular lens replaced. OTHER: No other significant abnormality. IMPRESSION: No acute intracranial process with chronic findings as above. THIS IS AN ELECTRONICALLY VERIFIED FINAL REPORT 07/08/2024 1:44 PM - Electronically signed by Mike Madera M.D. TEE T: Report ID: [id number] Reading Location: [id number] Lizet Sotelo MD IMG CT PROCEDURES Di l Result * XR Chest 1 Vw Portable (if patient condition/safety warrant portable) (07/08/2024 1:30 PM GAS ENGINE PERFORMANCE ENGINEER) Anatomical Region Laterality Modality Body, Chest N/A Computed Radiogr aphy 07/08/2024 1:44 PM GAS ENGINE PERFORMANCE ENGINEER Narrative 07/08/2024 1:45 PM GAS ENGINE PERFORMANCE ENGINEER EXAM DESCRIPTION: XR CHEST 1 VIEW REASON [...] 1:45 PM - Electronically signed by Mike Madera M.D. TEE T: Report ID: [id number] Reading Location: [id number] Procedure Note Mike Madera MD - 07/08/2024 [...] 1:45 PM - Electronically signed by Mike Madera M.D. TEE T: Report ID: [id number] Reading Location: [id number] Lizet Sotelo MD IMG XR PROCEDURES Di l Result * Troponin T high-sensitivity series (baseline, 2hr, 4hr, 6hr) (07/08/2024 1:04 PM GAS ENGINE PERFORMANCE ENGINEER) Trop T hs 16 <=22 ng/L Comment: Interpretive Data For further hscTnT resources including the diagnostic algorithm and an aid in interpretation, copy and paste this link: [email or web address].testcatalog.org/[email or web address] Current Interpretive Data last revised 2020. Blood 07/08/2024 1:04 PM GAS ENGINE PERFORMANCE ENGINEER 07/08/2024 1:07 PM GAS ENGINE PERFORMANCE ENGINEER Lizet Sotelo MD LAB BLOOD ORDERABLES F inal Result Performing Organization Address [facility] Co de Phone Number KARL [address] [place] [address] * eGFR (07/08/2024 1:04 PM GAS ENGINE PERFORMANCE ENGINEER) Pathologist [facility] eGFR >90 >=60 mL/min/1. 73 m2 Comment: [...] last reviewed 2021. Blood 07/08/2024 1:04 PM GAS ENGINE PERFORMANCE ENGINEER 07/08/2024 1:07 PM GAS ENGINE PERFORMANCE ENGINEER Lorraine Dumont MD LAB BLOOD ORDERABLES Final Resu lt Performing Organization Address City/[facility]/ZIP Co de Phone Number KARL [address] [place] [address] * (ABNORMAL) Differential, auto (07/08/2024 1:04 PM GAS ENGINE PERFORMANCE ENGINEER) [facility] Neutrophil abs 10.0(H) 1.5 - 6.5 K/cumm Imm gran abs 0.1 0.0 - 0.1 K/cumm [facility] Lymphocyte abs 1.3 0.8 - 3.3 K/cumm [facility] Monocyte abs 1.0(H) 0.2 - 0.8 K/cumm [facility] Eosinophil abs 0.2 0.0 - 0.5 K/cumm [facility] Basophil abs 0.1 0.0 - 0.1 K/cumm [facility] Neutrophil pct 79.9 % [facility] Comment: Interpretive Data Percent cell count reference ranges are not reported, since discordance with absolute values may lead to misinterpretation of CBC data. Current Interpretive Data was last revised on 2017. Imm gran pct 0.4 % [facility] Comment: Interpretive Data Percent cell count reference ranges are not reported, since discordance with absolute values may lead to misinterpretation of CBC data. Current Interpretive Data was last revised on 2017. Lymphocyte pct 10.1 % [facility] Comment: Interpretive Data Percent cell count reference ranges are not reported, since discordance with absolute values may lead to misinterpretation of CBC data. Current Interpretive Data was last revised on 2017. Monocyte pct 7.7 % [facility] Comment: Interpretive Data Percent cell count reference ranges are not reported, since discordance with absolute values may lead to misinterpretation of CBC data. Current Interpretive Data was last revised on 2017. Eosinophil pct 1.3 % [facility] Comment: Interpretive Data Percent cell count reference ranges are not reported, since discordance with absolute values may lead to misinterpretation of CBC data. Current Interpretive Data was last revised on 2017. Basophil pct 0.6 % [facility] Comment: Interpretive Data Percent cell count reference ranges are not reported, since discordance with absolute values may lead to misinterpretation of CBC data. Current Interpretive Data was last revised on 2017. Blood 07/08/2024 1:04 PM GAS ENGINE PERFORMANCE ENGINEER 07/08/2024 1:07 PM GAS ENGINE PERFORMANCE ENGINEER us [facility] Tim MATHIAS LAB BLOOD ORDERABLES Final Resu lt KARL [address] [facility] Department [place] [address] * (ABNORMAL) CBC with auto differential (07/08/2024 1:04 PM GAS ENGINE PERFORMANCE ENGINEER) [facility] WBC 12.5(H) 3.8 - 9.9 K/cumm Hgb 15.0 13.0 - 17.5 g/dL [facility] Hct 44.9 38.9 - 50.3 % [facility] Plt 213 150 - 400 K/cumm [facility] MPV 11.9 9.1 - 12.3 fL [facility] RBC 4.79 4.30 - 5.80 M/cumm [facility] MCV 93.7 81.3 - 96.4 fL [facility] MCH 31.3 27.1 - 33.3 pg [facility] MCHC 33.4 32.3 - 35.7 g/dL [facility] RDW CV 13.9 11.1 - 14.9 % [facility] RDW SD 47.7 35.7 - 48.1 fL [facility] NRBC abs 0.00 0.00 - 0.01 K/cumm [facility] Blood Venous blood specimen / Unknown 07/08/2024 1:04 PM GAS ENGINE PERFORMANCE ENGINEER 07/08/2024 1:07 PM GAS ENGINE PERFORMANCE ENGINEER us Lizet Sotelo MD LAB BLOOD ORDERABLES F inal Result [facility] [address] [facility] Department [place] [address] * Comprehensive metabolic panel (07/08/2024 1:04 PM GAS ENGINE PERFORMANCE ENGINEER) [facility] Sodium 135 135 - 145 mmol/L Potassium, pl 4.3 3.3 - 4.9 mmol/L [facility] Chloride 98 97 - 110 mmol/L [facility] CO2 25 22 - 32 mmol/L [facility] Anion gap 12 2 - 15 mmol/L [facility] BUN 15 6 - 25 mg/dL [facility] Creatinine 0.90 0.80 - 1.30 mg/dL [facility] Glucose 177 70 - 199 mg/dL [facility] Comment: Interpretive Data Fasting glucose >/= [...] 2022. Calcium 9.9 8.5 - 10.3 mg/dL [facility] Bilirubin, total 0.5 0.1 - 1.2 mg/dL [facility] Protein, pl 7.3 6.5 - 8.5 g/dL [facility] Albumin 4.2 3.5 - 5.0 g/dL [facility] Alk phos 76 40 - 130 Units/L [facility] ALT 19 7 - 55 Units/L [facility] AST 12 10 - 50 Units/L [facility] Blood 07/08/2024 1:04 PM GAS ENGINE PERFORMANCE ENGINEER 07/08/2024 1:07 PM GAS ENGINE PERFORMANCE ENGINEER us Lizet Sotelo MD LAB BLOOD ORDERABLES F inal Result KARL [address] [facility] Department [place] [address] * ECG 12 lead (07/08/2024 12:50 PM GAS ENGINE PERFORMANCE ENGINEER) Ventricular Rate EKG/Min 107 BPM [facility] Atrial Rate 107 BPM [facility] NV-Interval (MSEC) 190 ms [facility] QRS-Interval (MSEC) 92 ms [facility] QT-Interval (MSEC) 356 ms [facility] QTc 475 ms [facility] P [place] 62 degrees [facility] R [place] 61 degrees [facility] T [place] 55 degrees [facility] Diagnosis Sinus tachycardia Low voltage QRS Borderline ECG No previous ECGs available Confirmed by KENDALL ORTEGA M.D. ([id number]) on 07/09/2024 8:19:39 AM [facility] 07/08/2024 12:5 0 PM GAS ENGINE PERFORMANCE ENGINEER 07/09/2024 8:19 AM GAS ENGINE PERFORMANCE ENGINEER Lizet Sotelo MD ECG ORDERABLES Final Result [facility] * eGFR (06/30/2024 5:40 AM GAS ENGINE PERFORMANCE ENGINEER) eGFR >90 >=60 mL/min/1. 73 m2 KARL [...] Current interpretive data was last reviewed 2021. [facility], [address] [place] [address]., [id number] Blood 06/30/2024 5:40 AM GAS ENGINE PERFORMANCE ENGINEER 06/30/2024 7:08 AM GAS ENGINE PERFORMANCE ENGINEER us Pat EMERY LAB BLOOD ORDERABLES Final Resu lt Performing Organization Address City/[facility]/ZIP Co de Phone Number KARL [address] Department [place] [address] * (ABNORMAL) CBC without differential (06/30/2024 5:40 AM GAS ENGINE PERFORMANCE ENGINEER) WBC 7.6 3.8 - 9.9 K/cumm KARL W[place] Comment:[address] [address] Hgb 13.9 13.0 - 17.5 g/dL KARL [place] Comment:[address] [address] Hct 42.5 38.9 - 50.3 % KARL WASHINGTON Comment:[address] [place]., [address] Plt 185 150 - 400 K/cumm KARL MH Comment:[address] [address] MPV 12.9(H) 9.1 - 12.3 fL KARL MH Comment:[address] [address] RBC 4.50 4.30 - 5.80 M/cumm CERKEVIN MH Comment:[address], [address] MCV 94.4 81.3 - 96.4 fL CERKEVIN MH Comment:[address], [address] MCH 30.9 27.1 - 33.3 pg KARL MH Comment:[address], [address] MCHC 32.7 32.3 - 35.7 g/dL KARL MH Comment:[address], [address] RDW CV 13.9 11.1 - 14.9 % KARL Comment:[address], [address] RDW SD 47.9 35.7 - 48.1 fL CERKEVIN Comment:[address] [address] NRBC abs 0.00 0.00 - 0.01 K/cumm KARL Comment:[address] [address] Blood 06/30/2024 5:40 AM GAS ENGINE PERFORMANCE ENGINEER 06/30/2024 7:08 AM GAS ENGINE PERFORMANCE ENGINEER us Pat EMERY LAB BLOOD ORDERABLES Final Resu lt KARL [address] [facility] Department [place] [address] * Comprehensive metabolic panel (06/30/2024 5:40 AM GAS ENGINE PERFORMANCE ENGINEER) Sodium 138 135 - 145 mmol/L KARL Comment:[address] [address] Potassium, pl 4.1 3.3 - 4.9 mmol/L [facility] Comment:[address] [address] Chloride 99 97 - 110 mmol/L [facility] Comment:[address] [address] CO2 29 22 - 32 mmol/L [facility] Comment:[address] [address] Anion gap 10 2 - 15 mmol/L [facility] Comment:[address] [address] BUN 18 6 - 25 mg/dL [facility] Comment:[address] [address] Creatinine 0.80 0.80 - 1.30 mg/dL [facility] Comment:[address] [address] Glucose 187 70 - 199 mg/dL [facility] Comment: Interpretive Data Fasting glucose >/= [...] Current interpretive data was last revised 2022. [facility], [address] [place]., [address] Calcium 9.5 8.5 - 10.3 mg/dL [facility] Comment:[address] [address] Bilirubin, total 0.3 0.1 - 1.2 mg/dL [facility] Comment:[address] [address] Protein, pl 6.5 6.5 - 8.5 g/dL [facility] Comment:[address] [address] Albumin 3.9 3.5 - 5.0 g/dL [facility] Comment:[address] [address] Alk phos 69 40 - 130 Units/L KARL W[place] Comment:[facility], [address] [place] [address]., [address] ALT 12 7 - 55 Units/L KARL W[place] Comment:[address] [address] AST 12 10 - 50 Units/L KARL W[place] Comment:[address] [address] Blood 06/30/2024 5:40 AM GAS ENGINE PERFORMANCE ENGINEER 06/30/2024 7:08 AM GAS ENGINE PERFORMANCE ENGINEER us Pat EMERY LAB BLOOD ORDERABLES Final Resu lt KARL [address] [facility] Department [place] [address] * FL Modified Barium Swallow W Video (06/29/2024 2:01 PM GAS ENGINE PERFORMANCE ENGINEER) Anatomical Region Laterality Modality Head and Neck N/A Computed Radiogr aphy, Computed Radiography 06/29/2024 2:13 PM GAS ENGINE PERFORMANCE ENGINEER Narrative 06/29/2024 2:14 PM GAS ENGINE PERFORMANCE ENGINEER EXAM DESCRIPTION: FL MODIFIED BARIUM SWALLOW EVALUATION [...] 2:14 PM - Electronically signed by Kareem MOREIRA T: Report ID: [id number] Reading Location: [id number] Procedure Note Kareem Burnett MD - 06/29/2024 [...] Kareem Burnett M.D. SN T: Report ID: [id number] Reading Location: [place] [address] Pat EMERY IMG FLUOROSCOPY PROCEDURES Di l Result * (ABNORMAL) CBC without differential (06/14/2024 5:44 AM GAS ENGINE PERFORMANCE ENGINEER) WBC 9.2 3.8 - 9.9 K/cumm CERNER MH Comment:[address], [address] Hgb 13.5 13.0 - 17.5 g/dL [facility]ERNER MH Comment:[address], [address] Hct 41.7 38.9 - 50.3 % [facility]ER MH Comment:[address], [address] Plt 226 150 - 400 K/cumm [facility]ER MH Comment:[address], [address] MPV 13.1(H) 9.1 - 12.3 fL [facility] MH Comment:[address] [address] RBC 4.33 4.30 - 5.80 M/cumm [facility]ER MH Comment:[address], [address] MCV 96.3 81.3 - 96.4 fL [facility] MH Comment:[address] [address] MCH 31.2 27.1 - 33.3 pg [facility] MH Comment:[address] [address] MCHC 32.4 32.3 - 35.7 g/dL [facility] MH Comment:[address], [address] RDW CV 14.2 11.1 - 14.9 % [facility]ER MH Comment:[address] [address] RDW SD 50.1(H) 35.7 - 48.1 fL KARL [place] Comment:[address] [address] NRBC abs 0.00 0.00 - 0.01 K/cumm KARL [place] Comment:[address] [address] Blood 06/14/2024 5:44 AM GAS ENGINE PERFORMANCE ENGINEER 06/14/2024 8:08 AM GAS ENGINE PERFORMANCE ENGINEER us Pat EMERY LAB BLOOD ORDERABLES Final Resu lt KARL [place] [address] [facility] Department [place] [address] * FL Modified Barium Swallow W Video (06/09/2024 2:28 PM GAS ENGINE PERFORMANCE ENGINEER) Anatomical Region Laterality Modality Head and Neck N/A Computed Radiogr aphy, Computed Radiography 06/09/2024 2:41 PM GAS ENGINE PERFORMANCE ENGINEER Narrative 06/09/2024 2:43 PM GAS ENGINE PERFORMANCE ENGINEER EXAM DESCRIPTION: FL MODIFIED BARIUM SWALLOW EVALUATION [...] Mike Madera M.D. TEE T: Report ID: [id number] Reading Location: [id number] Procedure Note Mike Madera MD - 06/09/2024 [...] signed by Mike OLIVEIRA T: Report ID: [id number] Reading Location: [id number] Pat EMERY IMG FLUOROSCOPY PROCEDURES Di l Result * eGFR (06/08/2024 8:31 AM GAS ENGINE PERFORMANCE ENGINEER) eGFR >90 >=60 mL/min/1. 73 m2 KARL [...] Current interpretive data was last reviewed 2021. [facility], [facility] [place]., [address] Blood 06/08/2024 8:31 AM GAS ENGINE PERFORMANCE ENGINEER 06/08/2024 8:42 AM GAS ENGINE PERFORMANCE ENGINEER us Pat EMERY LAB BLOOD ORDERABLES Final Resu lt KARL [address] Department [place] [address] * (ABNORMAL) CBC without differential (06/08/2024 8:31 AM GAS ENGINE PERFORMANCE ENGINEER) WBC 11.1(H) 3.8 - 9.9 K/cumm KARL Comment:[address] [address] Hgb 13.6 13.0 - 17.5 g/dL KARL Comment:[address] [address] Hct 41.6 38.9 - 50.3 % CERKEVIN Comment:[address] [address] Plt 171 150 - 400 K/cumm CERKEVIN MH Comment:[address] [address] MPV 13.2(H) 9.1 - 12.3 fL [facility]ERKEVIN MH Comment:[address] [address] RBC 4.33 4.30 - 5.80 M/cumm [facility]ERKEVIN MH Comment:[address] [address] MCV 96.1 81.3 - 96.4 fL [facility]ER[facility]IN MH Comment:[address] [address] MCH 31.4 27.1 - 33.3 pg [facility]ERKE[facility]IN MH Comment:[address], [address] MCHC 32.7 32.3 - 35.7 g/dL [facility]IN MH Comment:[address] [address] RDW CV 14.6 11.1 - 14.9 % KARL [place] Comment:[address] [address] RDW SD 51.8(H) 35.7 - 48.1 fL KARL [place] Comment:[address] [address] NRBC abs 0.00 0.00 - 0.01 K/cumm KARL [place] Comment:[address] [address] Blood 06/08/2024 8:31 AM GAS ENGINE PERFORMANCE ENGINEER 06/08/2024 8:42 AM GAS ENGINE PERFORMANCE ENGINEER us Pat EMERY LAB BLOOD ORDERABLES Final Resu lt KARL [address] [facility] Department [place] [address] * (ABNORMAL) Comprehensive metabolic panel (06/08/2024 8:31 AM GAS ENGINE PERFORMANCE ENGINEER) Sodium 135 135 - 145 mmol/L KARL [place] Comment:[address] [address] Potassium, pl 4.2 3.3 - 4.9 mmol/L KARL [place] Comment:[address] [address] Chloride 98 97 - 110 mmol/L KARL Comment:[address] [address] CO2 29 22 - 32 mmol/L KARL Comment:[address] [address] Anion gap 8 2 - 15 mmol/L KARL Comment:[address] [address] BUN 24 6 - 25 mg/dL KARL Comment:[address] [address] Creatinine 0.94 0.80 - 1.30 mg/dL KARL [place] Comment:[address] [address] Glucose 271(H) 70 - 199 mg/dL KARL [place] Comment: Interpretive Data Fasting glucose >/= 126 [...] Current interpretive data was last revised 2022. [facility], [address] [place]., [address] Calcium 9.9 8.5 - 10.3 mg/dL KARL Comment:[address] [address] Bilirubin, total 0.3 0.1 - 1.2 mg/dL KARL Comment:[address] [address] Protein, pl 6.6 6.5 - 8.5 g/dL KARL Comment:[address] [address] Albumin 3.9 3.5 - 5.0 g/dL KARL Comment:[address] [address] Alk phos 78 40 - 130 Units/L KARL Comment:[address] [address] ALT 23 7 - 55 Units/L KARL Comment:[address] [address] AST 18 10 - 50 Units/L KARL Comment:[address] [address] Blood 06/08/2024 8:31 AM GAS ENGINE PERFORMANCE ENGINEER 06/08/2024 8:42 AM GAS ENGINE PERFORMANCE ENGINEER us Pat EMERY LAB BLOOD ORDERABLES Final Resu lt KARL [place] [address] [place] [address] Department [place] [address] * eGFR (06/04/2024 4:21 PM GAS ENGINE PERFORMANCE ENGINEER) Pathologist [facility] eGFR >90 >=60 mL/min/1. 73 m2 KARL [...] Current interpretive data was last reviewed 2021. [facility], [address] [place] [address]., [address] Blood 06/04/2024 4:21 PM GAS ENGINE PERFORMANCE ENGINEER 06/04/2024 4:34 PM GAS ENGINE PERFORMANCE ENGINEER us Tawny Batres JOB CAPTAIN LAB BLOOD ORDERABLES Final Result KARL [address] Department [place] [address] * (ABNORMAL) CBC without differential (06/04/2024 4:21 PM GAS ENGINE PERFORMANCE ENGINEER) WBC 8.3 3.8 - 9.9 K/cumm KARL [place] Comment:[address] [address] Hgb 13.3 13.0 - 17.5 g/dL KARL [place] Comment:[address] [address] Hct 39.4 38.9 - 50.3 % KARL [place] Comment:[address] [address] Plt 136(L) 150 - 400 K/cumm KARL [place] Comment:[address] [address] MPV 12.7(H) 9.1 - 12.3 fL KARL Comment:[address] [address] RBC 4.17(L) 4.30 - 5.80 M/cumm KARL Comment:[address] [address] MCV 94.5 81.3 - 96.4 fL KARL Comment:[address], [address] MCH 31.9 27.1 - 33.3 pg KARL Comment:[address], [address] MCHC 33.8 32.3 - 35.7 g/dL KARL Comment:[address], [address] RDW CV 14.6 11.1 - 14.9 % KARL Comment:[address], [address] RDW SD 50.1(H) 35.7 - 48.1 fL KARL Comment:[address], [address] NRBC abs 0.00 0.00 - 0.01 K/cumm KARL Comment:[address] [address] Blood 06/04/2024 4:21 PM GAS ENGINE PERFORMANCE ENGINEER 06/04/2024 4:34 PM GAS ENGINE PERFORMANCE ENGINEER Tawny Batres JOB CAPTAIN LAB BLOOD ORDERABLES Final Result KARL [address] [facility] Department [place] [address] * Phosphorus (06/04/2024 4:21 PM GAS ENGINE PERFORMANCE ENGINEER) Phosphorus, pl 3.6 2.3 - 4.5 mg/dL KARL Comment:[address] [address] Blood 06/04/2024 4:21 PM GAS ENGINE PERFORMANCE ENGINEER 06/04/2024 4:34 PM GAS ENGINE PERFORMANCE ENGINEER Tawny Batres NP LAB BLOOD ORDERABLES Final Result Performing Organization Address City/[facility]/ZIP Co de Phone Number [address] [address] * Magnesium (06/04/2024 4:21 PM GAS ENGINE PERFORMANCE ENGINEER) [facility] Magnesium 2.3 1.4 - 2.5 mg/dL [facility] Comment:[address] [address] Blood 06/04/2024 4:21 PM GAS ENGINE PERFORMANCE ENGINEER 06/04/2024 4:34 PM GAS ENGINE PERFORMANCE ENGINEER Tawny Batres NP LAB BLOOD ORDERABLES Final Result Performing Organization Address [facility] de Phone Number [address] [address] * (ABNORMAL) Hemoglobin A1c (06/04/2024 4:21 PM GAS ENGINE PERFORMANCE ENGINEER) [facility] Hgb A1C 7.6(H) 4.0 - 5.6 % KARL Comment:[address] [address] Estimated Average Glucose 171 mg/dL KARL Comment: The ADA recommends reporting an estimated Average Glucose (eAG) with all Hemoglobin A1c results using the equation derived from a study of 507 normal and diabetic adults. Minority populations were underrepresented and children were not included. (Diabetes Care 31:0858-5286, 2008). The eAG is not equivalent to a fasting glucose. [address] [address] Blood 06/04/2024 4:21 PM GAS ENGINE PERFORMANCE ENGINEER 06/04/2024 4:34 PM GAS ENGINE PERFORMANCE ENGINEER Tawny Batres NP LAB BLOOD ORDERABLES Final Result Performing Organization Address [facility] Co de Phone Number [address] [address] * (ABNORMAL) Comprehensive metabolic panel (06/04/2024 4:21 PM GAS ENGINE PERFORMANCE ENGINEER) Sodium 134(L) 135 - 145 mmol/L KARL Comment:[address] [address] Potassium, pl 4.1 3.3 - 4.9 mmol/L [facility] Comment:[address] [address] Chloride 95(L) 97 - 110 mmol/L [facility] Comment:[address] [address] CO2 27 22 - 32 mmol/L [facility] Comment:[address] [address] Anion gap 12 2 - 15 mmol/L [facility] Comment:[address] [address] BUN 25 6 - 25 mg/dL [facility] Comment:[address] [address] Creatinine 0.86 0.80 - 1.30 mg/dL [facility] Comment:[address] [address] Glucose 229(H) 70 - 199 mg/dL [facility] Comment: Interpretive Data Fasting glucose >/= [...] Current interpretive data was last revised 2022. [facility], [address] [place]., [address] Calcium 9.5 8.5 - 10.3 mg/dL [facility] Comment:[address] [address] Bilirubin, total 0.4 0.1 - 1.2 mg/dL [facility] Comment:[address] [address] Protein, pl 6.5 6.5 - 8.5 g/dL [facility] Comment:[address] [address] Albumin 3.9 3.5 - 5.0 g/dL [facility] [place] Comment:[facility], [address] [place] [address]., [address] Alk phos 79 40 - 130 Units/L [facility] Comment:[facility], [address] [place] [address]., [address] ALT 28 7 - 55 Units/L [facility] Comment:[address] [address] AST 13 10 - 50 Units/L [facility] Comment:[address] [address] Blood 06/04/2024 4:21 PM GAS ENGINE PERFORMANCE ENGINEER 06/04/2024 4:34 PM GAS ENGINE PERFORMANCE ENGINEER us Tawny Batres JOB CAPTAIN LAB BLOOD ORDERABLES Final Result Performing Organization Address City/State/[facility] Co de Phone Number KAR[facility] [address] [facility] Department [place] [address] from Last 3 Months Insurance [facility] CHOICE PLUS [facility] CHOICE PLUS Advance Directives For more information, please contact: [phone] Documents on File Type Date Recorded 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
--- OUTSIDE RECORDS SUMMARY | 2024-09-02 12:15 | XMS_ITS | Encounter Summary ---
Author Organization [employer] Address 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 Gender Identity Not on file Sexual Orientation [...] CDT) BUN 20 6 - 20 mg/dL [facility] ALKALINE PHOSPHATASE 107 40 - 129 U/L [facility] ALBUMIN 3.9 3.4 - 4.8 g/dL [facility] CHLORIDE 95(L) 96 - 108 mmol/L [facility] TOTAL PROTEIN 7.4 6.3 - 8.6 g/dL [facility] SODIUM 132(L) 135 - 145 mmol/L [facility] GLUCOSE 218(H) 65 - 99 mg/dL [facility] AST 17 12 - 38 U/L [facility] CO2 29 22 - 30 mmol/L [facility] CALCIUM 9.1 8.4 - 10.2 mg/dL [facility] POTASSIUM 4.6 3.5 - 4.9 mmol/L [facility] CREATININE 1.11 0.67 - 1.17 mg/dL [facility] ALT 11 0 - 41 U/L [facility] BILIRUBIN TOTAL 0.2 0.2 - 1.0 mg/dL [facility] GFR, >60 >=60 mL/min/1. 7 sq meter [facility] GFR >60 >=60 mL/min/1. 7 sq meter [facility] Comment: Modification of Diet in Renal Disease (MDRD) study formula. Estimated GFR rate interpretative information for both Americans and non- Americans is available on the [facility] Intranet at: [email or web address] Select: Lab Policies and Procedures Select: Reference Ranges - GFR Blood specimen (specimen) 11/27/2007 8:25 AM CDT 11/27/2007 8:25 AM CDT Ever Recio CHEMISTRY ORDERABLES Edited [facility] CLIA# [id number] [address] [place] [address] * (ABNORMAL) CBC WITH DIFFERENTIAL (11/27/2007 8:25 AM CDT) HEMATOCRIT 37.2(L) 40.0 - 48.0 % [facility] RDW-STDEV 54.2(H) 37.1 - 48.7 fL [facility] RBC 3.81(L) 4.50 - 5.40 M/uL [facility] Comment: All cbc indices show significant change from prior results, correlate clinically and redraw if necessary. MCHC 32.8 31.5 - 35.5 % [facility] MCV 97.6 82.0 - 99.0 fL [facility] PLATELETS 293 140 - 350 K/uL [facility] HEMOGLOBIN 12.2(L) 13.6 - 16.5 g/dL [facility] RDW 16.2(H) 11.5 - 14.5 % [facility] WBC 13.6(H) 4.0 - 9.8 K/uL [facility] MCH 32.0 27.2 - 32.6 pg [facility] MPV 10.2 9.3 - 12.4 fL [facility] CLUMPED PLATELETS Present [facility] NEUTROPHIL ABSOLUTE 10.88(H) 1.90 - 7.00 K/uL [facility] NEUTROPHILS, SEG 66 45 - 70 % [facility] BASOPHILS 0 0 - 2 % [facility] ANISOCYTOSIS Slight [facility] EOSINOPHIL ABSOLUTE 0.14 0.00 - 0.70 K/uL [facility] MONOCYTES 7 3 - 13 % [facility] REVIEWED ON SMEAR WBC & Plt Reviewed [facility] ATYPICAL LYMPHOCYTE 1 0 - 5 % [facility] LYMPHOCYTE ABSOLUTE 0.41(L) 0.70 - 4.50 K/uL [facility] BANDS 14(H) 0 - 5 % [facility] TOXIC GRANULATION Slight [facility] METAMYELOCYTE 4(H) <=0 % [facility] BASOPHILS ABSOLUTE 0.00 0.00 - 0.20 K/uL [facility] PLATELET EST. Consistent w/ count Normal [facility] EOSINOPHILS 1 0 - 7 % [facility] MONOCYTE ABSOLUTE 0.95 0.10 - 1.30 K/uL [facility] MYELOCYTES 5(H) <=0 % [facility] LYMPHOCYTES 2(L) 16 - 45 % [facility] Blood specimen (specimen) 11/27/2007 8:25 AM CDT 11/27/2007 8:25 AM CDT us Hsiaoou Hu HEMATOLOGY ORDERABLES Edited [facility] CLIA# [id number] [address] [place] [address] * (ABNORMAL) COMPREHENSIVE METABOLIC PANEL (11/06/2007 8:37 AM CDT) CREATININE 0.84 0.67 - 1.17 mg/dL [facility] ALT 25 0 - 41 U/L [facility] SODIUM 133(L) 135 - 145 mmol/L [facility] ALKALINE PHOSPHATASE 109 40 - 129 U/L [facility] CO2 28 22 - 30 mmol/L [facility] BILIRUBIN TOTAL 0.3 0.2 - 1.0 mg/dL [facility] POTASSIUM 4.0 3.5 - 4.9 mmol/L [facility] TOTAL PROTEIN 7.3 6.3 - 8.6 g/dL [facility] GLUCOSE 193(H) 65 - 99 mg/dL [facility] AST 17 12 - 38 U/L [facility] BUN 13 6 - 20 mg/dL [facility] CALCIUM 9.2 8.4 - 10.2 mg/dL [facility] ALBUMIN 4.1 3.4 - 4.8 g/dL [facility] CHLORIDE 95(L) 96 - 108 mmol/L [facility] GFR, >60 >=60 mL/min/1. 7 sq meter [facility] GFR >60 >=60 mL/min/1. 7 sq meter [facility] Comment: Estimated GFR rate interpretative information for both Americans and non- Americans is available on the [facility] Intranet at: [email or web address] Select: Lab Policies and Procedures Select: Reference Ranges - GFR Blood specimen (specimen) 11/06/2007 8:37 AM CDT 11/06/2007 8:45 AM CDT Hsiaoou Hu CHEMISTRY ORDERABLES Edited [facility] CLIA# [id number] [address] [place] [address] * (ABNORMAL) CBC WITH DIFFERENTIAL (11/06/2007 8:37 AM CDT) HEMOGLOBIN 13.7 13.6 - 16.5 g/dL [facility] RDW 14.6(H) 11.5 - 14.5 % [facility] MPV 9.9 9.3 - 12.4 fL [facility] WBC 5.9 4.0 - 9.8 K/uL [facility] MCH 31.1 27.2 - 32.6 pg [facility] HEMATOCRIT 41.1 40.0 - 48.0 % [facility] RDW-STDEV 48.0 37.1 - 48.7 fL [facility] RBC 4.40(L) 4.50 - 5.40 M/uL [facility] MCHC 33.3 31.5 - 35.5 % [facility] PLATELETS 189 140 - 350 K/uL [facility] MCV 93.4 82.0 - 99.0 fL [facility] BASOPHILS ABSOLUTE 0.03 0.00 - 0.20 K/uL [facility] MONOCYTES 10 3 - 13 % [facility] MONOCYTE ABSOLUTE 0.56 0.10 - 1.30 K/uL [facility] NEUTROPHILS 77(H) 45 - 70 % [facility] NEUTROPHIL ABSOLUTE 4.57 1.90 - 7.00 K/uL [facility] EOSINOPHILS 3 0 - 7 % [facility] EOSINOPHIL ABSOLUTE 0.15 0.00 - 0.70 K/uL [facility] LYMPHOCYTES 10(L) 16 - 45 % [facility] LYMPHOCYTE ABSOLUTE 0.60(L) 0.70 - 4.50 K/uL [facility] BASOPHILS 1 0 - 2 % [facility] Blood specimen (specimen) 11/06/2007 8:37 AM CDT 11/06/2007 8:45 AM CDT Hsiaoou Hu HEMATOLOGY ORDERABLES Edited INTERFACE SYSTEM Refer to clinic/hospital department [facility] CLIA# [id number] [address] [place] [address] * (ABNORMAL) COMPREHENSIVE METABOLIC PANEL (10/30/2007 3:14 PM CDT) POTASSIUM 4.4 3.5 - 4.9 mmol/L [facility] GLUCOSE 107(H) 65 - 99 mg/dL [facility] AST 18 12 - 38 U/L [facility] BUN 14 6 - 20 mg/dL [facility] CALCIUM 9.3 8.4 - 10.2 mg/dL [facility] CHLORIDE 96 96 - 108 mmol/L [facility] ALBUMIN 4.0 3.4 - 4.8 g/dL [facility] CREATININE 0.85 0.67 - 1.17 mg/dL [facility] SODIUM 134(L) 135 - 145 mmol/L [facility] ALT 40 0 - 41 U/L [facility] ALKALINE PHOSPHATASE 136(H) 40 - 129 U/L [facility] BILIRUBIN TOTAL 0.2 0.2 - 1.0 mg/dL [facility] CO2 30 22 - 30 mmol/L [facility] TOTAL PROTEIN 7.0 6.3 - 8.6 g/dL [facility] GFR, >60 >=60 mL/min/1. 7 sq meter [facility] GFR >60 >=60 mL/min/1. 7 sq meter [facility] Comment: Estimated GFR rate interpretative information for both Americans and non- Americans is available on the [facility] Intranet at: [email or web address] Select: Lab Policies and Procedures Select: Reference Ranges - GFR Blood specimen (specimen) 10/30/2007 3:14 PM CDT 10/30/2007 3:17 PM CDT Ever Recio CHEMISTRY ORDERABLES Edited [facility] CLIA# [id number] [address] [facility] [place] [place] [address] * (ABNORMAL) CBC WITH DIFFERENTIAL (10/30/2007 3:14 PM CDT) WBC 6.9 4.0 - 9.8 K/uL [facility] MCH 30.9 27.2 - 32.6 pg [facility] MPV 10.8 9.3 - 12.4 fL [facility] HEMATOCRIT 40.0 40.0 - 48.0 % [facility] RDW-STDEV 44.7 37.1 - 48.7 fL [facility] RBC 4.34(L) 4.50 - 5.40 M/uL [facility] MCHC 33.5 31.5 - 35.5 % [facility] MCV 92.2 82.0 - 99.0 fL [facility] PLATELETS 96(L) 140 - 350 K/uL [facility] Comment: Results to be confirmed. HEMOGLOBIN 13.4(L) 13.6 - 16.5 g/dL [facility] RDW 13.8 11.5 - 14.5 % [facility] MONOCYTES 10 3 - 13 % [facility] MONOCYTE ABSOLUTE 0.67 0.10 - 1.30 K/uL [facility] NEUTROPHILS 76(H) 45 - 70 % [facility] NEUTROPHIL ABSOLUTE 5.21 1.90 - 7.00 K/uL [facility] EOSINOPHILS 2 0 - 7 % [facility] EOSINOPHIL ABSOLUTE 0.11 0.00 - 0.70 K/uL [facility] LYMPHOCYTES 12(L) 16 - 45 % [facility] LYMPHOCYTE ABSOLUTE 0.84 0.70 - 4.50 K/uL [facility] BASOPHILS 0 0 - 2 % [facility] BASOPHILS ABSOLUTE 0.03 0.00 - 0.20 K/uL [facility] Blood specimen (specimen) 10/30/2007 3:14 PM CDT 10/30/2007 3:17 PM CDT Hsiaoou Hu HEMATOLOGY ORDERABLES Edited INTERFACE SYSTEM Refer to clinic/hospital department [facility] CLIA# [id number] [address] [place] [address] documented in this encounter Visit Diagnoses Diagnosis Malignant neoplasm of head, face, and neck (CMS/HCC) Malignant neoplasm of head, face, and neck documented in this encounter Care Teams Auto Body Mechanic Relationship Specialty [place] [address] [place] [address] PCP - General 04/25/09 documented as of this encounter
--- OUTSIDE RECORDS SUMMARY | 2024-09-02 12:15 | XMS_ITS | Encounter Summary ---
Author Organization [employer] Address 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 [place], [place] [address] Admit Date: 10/21/2008 FRANCK LOUISE Sex: M Admit Prov: YE CORNELIUS Date: 1965 Primary Care Prov: CMRN: [id number] Room: [facility] SSN: [id number] IMAGING SERVICES Ordering Prov: N/A Interpretation PET/CT [...] neck documented in this encounter Care Teams Quantitative Analyst Relationship Specialty [place] [address] [place] [address] PCP - General 04/25/09 documented as of this encounter
--- OUTSIDE RECORDS SUMMARY | 2024-09-02 12:15 | XMS_ITS | Encounter Summary ---
Author Organization [employer] Address 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 Gender Identity Not on file Sexual Orientation Not on file documented as of this encounter Plan of Treatment Not on file documented as of this encounter Procedures Procedure Name Priority Date/Time Associated Diagnosis Comments CT CHEST W CONTRAST Timed Study 01/20/2009 8:[address] SOFT TISSUE NECK W CONTRAST Timed Study 01/20/2009 8:37 AM CDT documented in this encounter Results * CT SOFT TISSUE NECK W CONTRAST (01/20/2009 8:37 AM CDT) Anatomical Region Laterality Modality Neck Other 01/20/2009 8:37 AM CDT Narrative 01/20/2009 4:30 PM CDT [facility] [address] [place], [place] [address] Admit Date: 01/20/2009 FRANCK LOUISE Sex: M Admit Prov: YE RECIO Date: 1965 Primary Care Prov: CMRN: [id number] [facility] [address] [place] [address] IMAGING SERVICES Ordering Prov: N/A Accession Number: [id number] Interpretation CT SOFT TISSUE NECK WITH IV CONTRAST, 01/20/2009 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 TECHNIQUE: 2.5 mm axial images with intravenous Optiray-320. FINDINGS: The left tonsil is surgically absent. There is mild fat stranding and fascia thickening in the left submandibular space which appears unchanged since 07/25/08. The left submandibular gland and jugular vein are surgically absent. Atherosclerotic carotid artery changes are present bilaterally. No pathologic lymphadenopathy or discrete mass lesion is identified. There are subcentimeter lymph nodes in the right neck which are nonspecific and unchanged. Pulmonary apices are unremarkable. Multilevel cervical spondylosis is present. IMPRESSION: 1. Postsurgical changes with no evidence of pathologic adenopathy or recurrent mass lesion. . 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 TECHNIQUE: 2.5 mm axial images with intravenous Optiray-320. FINDINGS: The left tonsil is surgically absent. There is mild fatstranding and fascia thickening in the left submandibular space which appears unchanged since 07/25/08. The left submandibular gland and jugular veinare surgically absent. Atherosclerotic carotid artery changes arepresent bilaterally. No pathologic lymphadenopathy or discrete mass lesionis identified. There are subcentimeter lymph nodes in the right neckwhich are nonspecific and unchanged. Pulmonary apices are unremarkable.Multilevel cervical spondylosis is present. IMPRESSION: 1. Postsurgical changes with no evidence of pathologic adenopathyor recurrent mass lesion. . Dictated by: FRANCK MO 01/20/2009 09:57 Electronically signed by: FRANCK MO 01/20/2009 16:29 Transcribed: 01/20/2009 14:[address] ORDERABLES Final Result * CT CHEST W CONTRAST (01/20/2009 8:37 AM CDT) Anatomical Region Laterality Modality Chest Other 01/20/2009 8:37 AM CDT Narrative 01/20/2009 1:30 PM CDT [address] [address] Admit Date: 01/20/2009 FRANCK LOUISE Sex: M Admit Prov: YE RECIO Date: 1965 Primary Care Prov: CMRN: [id number] Room: [facility] SSN: [id number] IMAGING SERVICES Ordering Prov: N/A Accession Number: [id number] Interpretation CT SCAN OF THE CHEST WITH IV CONTRAST 01/20/2009 CLINICAL HISTORY: Head and neck cancer. TECHNIQUE: 5 mm contiguous axial images were obtained from the lung apices through the lung bases following IV contrast administration. Comparison is made to prior exam dated 07/25/2008. FINDINGS: There is no pulmonary infiltrate, pleural effusion, pneumothorax or nodule. There is a calcified granuloma in the posterior left lower lobe which is stable. There is no mediastinal, hilar or axillary lymphadenopathy. The heart, aorta and visualized organs in the upper abdomen are within normal limits. IMPRESSION: No evidence of metastatic disease. . Dictated by: LINNETTE DICKSON 01/20/2009 09:33 Electronically signed by: LINNETTE DICKSON 01/20/2009 13:29 Transcribed: 01/20/2009 13:03 SMM Procedure Note Linnette Dickson MD - 01/20/2009 [facility] [address] [place], [place] [address] Admit Date: 01/20/2009 FRANCK LOUISE Sex: M Admit Prov: ADRYAN SCOTTYSISI ADRIANNE Date: 1965 Primary Care Prov: CMRN: [id number] Room: [facility] SSN: [id number] IMAGING SERVICES Ordering Prov: N/A Interpretation CT SCAN OF THE CHEST WITH IV CONTRAST 01/20/2009 CLINICAL HISTORY: Head and neck cancer. TECHNIQUE: 5 mm contiguous axial images were obtained from the lungapices through the lung bases following IV contrast administration. Comparison is made to prior exam dated 07/25/2008. FINDINGS: There is no pulmonary infiltrate, pleural effusion,pneumothorax or nodule. There is a calcified granuloma in the posterior left lowerlobe which is stable. There is no mediastinal, hilar or axillary lymphadenopathy. The heart, aorta and visualized organs in theupper abdomen are within normal limits. IMPRESSION: No evidence of metastatic disease. . Dictated by: LINNETTE DICKSON 01/20/2009 09:33 Electronically signed by: LINNETTE DICKSON 01/20/2009 13:29 Transcribed: 01/20/2009 13:[address] ORDERABLES Final Result documented in this encounter Visit Diagnoses Diagnosis Malignant neoplasm of head, face, and neck (CMS/HCC) Malignant neoplasm of head, face, and neck documented in this encounter Care Teams Program Trainer Relationship Specialty [place] [address] [place] [address] PCP - General 04/25/09 documented as of this encounter
--- OUTSIDE RECORDS SUMMARY | 2024-09-02 12:15 | XMS_ITS | Encounter Summary ---
Author Organization [employer] Address [address] [place] [address] Care Team Providers Care Disc Jockey Name Role Phone Franck Garcia MD Primary Care Provider [phone] Encounter Details Date Type Department Care Team (Late st Contact Info) Description 09/02/2007 Outpatient Historical [facility] Stephania Howard MD 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 Gender Identity Not on file Sexual Orientation [...] GLUCOSE POC 196(H) 65 - 99 mg/dL [facility] Venous blood specimen (specimen) 09/02/2007 3:53 PM CDT 09/02/2007 3:53 PM CDT us Stephania Howard MD POINT OF CARE TESTING Final Resu lt Performing Organization Address City/State/[facility] Co de Phone Number [facility] [address] [place] [address] * PATHOLOGY (09/02/2007 2:37 PM CDT) FINAL REPORT [facility] [address] [place] [id number] Patient: FRANCK LOUISE : 1965 Procedure Date: 09/02/2007 Accession Date: 09/02/2007 Case No: [id number] Ordering Dr: STEPHANIA HOWARD Case types AW, BW, FW, NW and SH are performed by [place], [place] SURGICAL PATHOLOGY & NON-GYNECOLOGIC CYTOPATHOLOGY REPORT [...] ORDERABLES Fi nal Result Performing Organization Address City/[facility]/ZIP Co de Phone Number INTERFACE SYSTEM Refer to clinic/hospital department * (ABNORMAL) POC GLUCOSE (09/02/2007 2:36 PM CDT) GLUCOSE POC 210(H) 65 - 99 mg/dL [facility] Venous blood specimen (specimen) 09/02/2007 2:36 PM CDT 09/02/2007 2:36 PM CDT Stephania Howard MD POINT OF CARE TESTING Final Resu lt Performing Organization Address [facility] Co de Phone Number [facility] [address] [place] [address] * PATHOLOGY (09/02/2007 1:48 PM CDT) FINAL REPORT [facility] [address] [place], [place] [address] Patient: FRANCK LOUISE : 1965 Procedure Date: 09/02/2007 Accession Date: 09/02/2007 Case No: [id number] Ordering Dr: STEPHANIA HOWARD Case types AW, BW, FW, NW and SH are performed by [facility], [place], [place] SURGICAL PATHOLOGY & NON-GYNECOLOGIC CYTOPATHOLOGY REPORT [...] - Acute inflammation. - Bacterial aggregates. [facility] 09.02.2007 04:01 pm Gross: Received are [...] fragments, which are submitted in block B1. [facility] 09.02.2007 04:01 pm Microscopic: Received are [...] ORDERABLES Fi nal Result Performing Organization Address City/[facility] Co de Phone Number INTERFACE SYSTEM Refer to clinic/hospital department * (ABNORMAL) POC GLUCOSE (09/02/2007 1:05 PM CDT) GLUCOSE POC 207(H) 65 - 99 mg/dL [facility] Venous blood specimen (specimen) 09/02/2007 1:05 PM CDT 09/02/2007 1:05 PM CDT Stephania Howard MD POINT OF CARE TESTING Final Resu lt Performing Organization Address [facility] Co de Phone Number [facility] [address] [place] [address] * (ABNORMAL) POC GLUCOSE (09/02/2007 12:23 PM CDT) GLUCOSE POC 197(H) 65 - 99 mg/dL [facility] Venous blood specimen (specimen) 09/02/2007 12:23 PM CDT 09/02/2007 12:23 PM CDT Stephania Howard MD POINT OF CARE TESTING Final Resu lt Performing Organization Address [facility] Co de Phone Number [facility] [address] [place] [address] * (ABNORMAL) POC RT, BLOOD GASES (09/02/2007 10:30 AM CDT) POTASSIUM POC 4.3 3.5 - 4.9 mmol/L [facility] HEMATOCRIT POC 49.0(H) 40.0 - 48.0 % [facility] PATIENT'S TEMPERATURE 37.0 Degree C [facility] COMMENT, GASES POC NOTIFIED [facility] Blood specimen (specimen) 09/02/2007 10:30 AM CDT 09/02/2007 10:30 AM CDT us Stephania Howard MD CHEMISTRY ORDERABLES Final Resul t Performing Organization Address City/State/[facility] Co de Phone Number [facility] [address] [place] [address] documented in this encounter Visit Diagnoses Not on filedocumented in this encounter Care Teams Disc Jockey Relationship Specialty [place] [address] [place] [address] PCP - General 04/25/09 documented as of this encounter
--- OUTSIDE RECORDS SUMMARY | 2024-09-02 12:15 | XMS_ITS | Encounter Summary ---
Author Organization [employer] Address [address] [place] [address] Care Team Providers Care Hogshead Packer Name Role Phone Clifton Garcia MD Primary Care Provider [phone] Encounter Details Date Type Department Care Team (Latest Contact Info) Description 11/06/2007 Outpatient Historical [facility] David Seymour MD [facility] [address] [place] [address] Hilario Howard MD [address] 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
--- OUTSIDE RECORDS SUMMARY | 2024-09-02 12:15 | XMS_ITS | Encounter Summary ---
Author Organization [employer] Address [address] [place] [address] Care Team Providers Care Storage Architect Name Role Phone Clifton Garcia MD Primary Care Provider [phone] Encounter Details Date Type Department Care Team (Latest Contact Info) Description 09/28/2008 Outpatient Historical [facility] David Seymour MD [address] [place] [address] [address] [place] [address] Malignant Neoplasm of Oropharynx, Unspecified Site (CMS/HCC) Social History Tobacco Use Types Packs/Day Years Used Date Smoking Tobacco: Never Assessed Sex and Gender Information Value Date Recorded Sex Assigned at Not on file 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
--- OUTSIDE RECORDS SUMMARY | 2024-09-02 12:15 | XMS_ITS | Encounter Summary ---
Author Organization [employer] Address 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 Gender Identity Not on file Sexual [...] CDT) CO2 31(H) 22 - 30 mmol/L [facility] TOTAL PROTEIN 7.3 6.3 - 8.6 g/dL [facility] POTASSIUM 5.1(H) 3.5 - 4.9 mmol/L [facility] Comment: No significant hemolysis GLUCOSE 247(H) 65 - 99 mg/dL [facility] AST 17 12 - 38 U/L [facility] BUN 25(H) 6 - 20 mg/dL [facility] CALCIUM 9.8 8.4 - 10.2 mg/dL [facility] CHLORIDE 91(L) 96 - 108 mmol/L [facility] ALBUMIN 4.2 3.4 - 4.8 g/dL [facility] CREATININE 1.15 0.67 - 1.17 mg/dL [facility] SODIUM 132(L) 135 - 145 mmol/L [facility] ALT 15 0 - 41 U/L [facility] ALKALINE PHOSPHATASE 108 40 - 129 U/L [facility] BILIRUBIN TOTAL 0.2 0.2 - 1.0 mg/dL [facility] GFR, >60 >=60 mL/min/1. 7 sq meter [facility] GFR >60 >=60 mL/min/1. 7 sq meter [facility] Comment: Modification of Diet in Renal Disease (MDRD) study formula. Estimated GFR rate interpretative information for both Americans and non- Americans is available on the [facility] Intranet at: [email or web address] [email or web address] Select: Lab Policies and Procedures Select: Reference Ranges - GFR Blood specimen (specimen) 12/18/2007 9:22 AM CDT 12/18/2007 9:30 AM CDT Ever [employer] CHEMISTRY ORDERABLES Edited [facility] CLIA# [id number] [address] [place] [address] * (ABNORMAL) CBC WITH DIFFERENTIAL (12/18/2007 9:22 AM CDT) HEMOGLOBIN 11.1(L) 13.6 - 16.5 g/dL [facility] RDW 16.7(H) 11.5 - 14.5 % [facility] WBC 10.6(H) 4.0 - 9.8 K/uL [facility] MCH 32.4 27.2 - 32.6 pg [facility] MPV 9.9 9.3 - 12.4 fL [facility] HEMATOCRIT 33.7(L) 40.0 - 48.0 % [facility] RDW-STDEV 57.1(H) 37.1 - 48.7 fL [facility] RBC 3.43(L) 4.50 - 5.40 M/uL [facility] MCHC 32.9 31.5 - 35.5 % [facility] MCV 98.3 82.0 - 99.0 fL [facility] PLATELETS 198 140 - 350 K/uL [facility] MONOCYTE ABSOLUTE 0.74 0.10 - 1.30 K/uL [facility] LYMPHOCYTES 5(L) 16 - 45 % [facility] DOHLE BODIES Present [facility] PLATELET EST. Consistent w/ count Normal [facility] NEUTROPHIL ABSOLUTE 9.01(H) 1.90 - 7.00 K/uL [facility] NEUTROPHILS, SEG 82(H) 45 - 70 % [facility] HYPOCHROMIA Slight [facility] BASOPHILS 1 0 - 2 % [facility] EOSINOPHIL ABSOLUTE 0.11 0.00 - 0.70 K/uL [facility] MONOCYTES 7 3 - 13 % [facility] ANISOCYTOSIS Slight [facility] LYMPHOCYTE ABSOLUTE 0.53(L) 0.70 - 4.50 K/uL [facility] BANDS 3 0 - 5 % [facility] MYELOCYTES 1(H) <=0 % [facility] TOXIC GRANULATION Slight [facility] BASOPHILS ABSOLUTE 0.11 0.00 - 0.20 K/uL [facility] EOSINOPHILS 1 0 - 7 % [facility] POLYCHROMASIA Slight [facility] Blood specimen (specimen) 12/18/2007 9:22 AM CDT 12/18/2007 9:30 AM CDT Hsiaoou Hu HEMATOLOGY ORDERABLES Edited [facility] CLIA# [id number] [address] [place] [address] documented in this encounter Visit Diagnoses Diagnosis Malignant neoplasm of head, face, and neck (CMS/HCC) Malignant neoplasm of head, face, and neck documented in this encounter Care Teams Mangle Roller Relationship Specialty [place] [address] [place] [address] PCP - General 04/25/09 documented as of this encounter
--- OUTSIDE RECORDS SUMMARY | 2024-09-02 12:15 | XMS_ITS | Encounter Summary ---
Author Organization [employer] Address [address] [place] [address] Care Team Providers Care Cell Room Supervisor Name Role Phone Clifton Garcia MD Primary Care Provider [phone] Encounter Details Date Type Department Care Team (Latest Contact Info) Description 12/08/2007 Outpatient Historical [facility] David Seymour MD [facility] [address] [place] [address] Hilario Howard MD [address] 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
--- OUTSIDE RECORDS SUMMARY | 2024-09-02 12:15 | XMS_ITS | Encounter Summary ---
Author Organization [employer] Address 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
--- OUTSIDE RECORDS SUMMARY | 2024-09-02 12:15 | XMS_ITS | Encounter Summary ---
Author Organization [employer] Address [address] [place] [address] Care Team Providers Care Condenser Cleaner Name Role Phone Clifton Garcia MD Primary Care Provider [phone] Encounter Details Date Type Department Care Team (Latest Contact Info) Description 10/07/2007 Outpatient Historical [facility] Hilario Howard MD [address] 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
--- OUTSIDE RECORDS SUMMARY | 2024-09-02 12:15 | XMS_ITS | Encounter Summary ---
Author Organization [facility] Address [address] [place] [address] Care Team Providers Care Jewelry Appraiser Name Role Phone Franck Garcia MD Primary Care Provider [phone] Encounter Details Date Type Department Care Team (Latest Contact Info) Description 09/04/2007 Inpatient Historical [facility] Stephania Howard MD 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, [place] [address] Patient: FRANCK LOUISE : 1965 Procedure Date: 09/04/2007 Accession Date: 09/04/2007 Case No: [id number] Ordering Dr: STEPHANIA HOWARD Case types AW, BW, FW, NW and SH are performed by [facility], [place], [place] SURGICAL PATHOLOGY & NON-GYNECOLOGIC CYTOPATHOLOGY REPORT [...] the posterior triangle nodes are in C10. [facility] 09.04.2007 08:17 pm Microscopic: Received are slides labeled [id number], Franck Louise. Sections of left tonsil identify [...] 15. Margin(s): See description. Perineural Invasion: Present. [facility] 09.07.2007 04:19 pm Staging Form: Yes. ELECTRONIC SIGNATURE FOR SARAH SIN M.D.- 09/08/07 04:42 pm INTERFACE SYSTEM ADDENDUM REPORT [facility] [address] [place], [place] [address] Patient: FRANKC LOUISE : 1965 Procedure Date: 09/04/2007 Accession Date: 09/04/2007 Case No: [id number] Ordering Dr: STEPHANIA HOWARD Case types AW, BW, FW, NW and SH are performed by [facility], [place], [place] ADDENDUM REPORT NOTE: This addendum is issued to report the results of in situ hybridization studies for human papilloma virus. 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 Testing was performed and interpreted by [facility]. Tissue was tested via in situ hybridization using the INFORM low-risk and high-risk HPV kit. The low-risk HPV is interpreted as negative. The high- risk HPV was interpreted as positive. The high-risk HPV probe detects the following HPV genotypes: 16, 18, 31, 33, 35, 45, 51, 52, 56, 58, 59, 68, and 70. [facility] 02.08.08 ELECTRONIC SIGNATURE FOR SARAH SIN M.D. [...] the posterior triangle nodes are in C10. [facility] 09.04.2007 08:17 pm Microscopic: Received are slides labeled [id number], Franck Louise. Sections of left tonsil identify [...] CDT) HEMATOCRIT 48.2(H) 40.0 - 48.0 % [facility] HEMOGLOBIN 16.2 13.6 - 16.5 g/dL [facility] Blood specimen (specimen) 09/04/2007 12:14 PM CDT 09/04/2007 12:22 PM CDT Narrative [facility] - 09/04/2007 12:28 PM CDT RM 36 us Stephania Howard MD HEMATOLOGY ORDERABLES Final Resu lt [facility] [address] [place], [place] [address] * (ABNORMAL) BASIC METABOLIC PANEL (09/04/2007 11:43 AM CDT) BUN 16 6 - 20 mg/dL [facility] CHLORIDE 96 96 - 108 mmol/L [facility] GLUCOSE 188(H) 65 - 99 mg/dL [facility] SODIUM 134(L) 135 - 145 mmol/L [facility] CALCIUM 8.9 8.4 - 10.2 mg/dL [facility] CO2 29 22 - 30 mmol/L [facility] CREATININE 0.91 0.67 - 1.17 mg/dL [facility] POTASSIUM 4.4 3.5 - 4.9 mmol/L [facility] GFR, >60 >=60 mL/min/1. 7 sq meter [facility] GFR >60 >=60 mL/min/1. 7 sq meter [facility] Comment: Estimated GFR rate interpretative information for both Americans and non- Americans is available on the [facility] Intranet at: [email or web address] Select: Lab Policies and Procedures Select: Reference Ranges - GFR Blood specimen (specimen) 09/04/2007 11:43 AM CDT 09/04/2007 12:22 PM CDT Narrative [facility] - 09/04/2007 12:57 PM CDT [id number] us Stephania Howard MD CHEMISTRY ORDERABLES Edited [facility] [address] [place] [address] documented in this encounter Visit Diagnoses Diagnosis Malignant neoplasm of head, face, and neck (CMS/HCC) Malignant neoplasm of head, face, and neck documented in this encounter Care Teams Jewelry Appraiser Relationship Specialty [place] [address] [place] [address] PCP - General 04/25/09 documented as of this encounter
--- OUTSIDE RECORDS SUMMARY | 2024-09-02 12:15 | XMS_ITS | Encounter Summary ---
Author Organization [facility] Address [address] [place] [address] Care Team Providers Care Fashion Consultant Sales Name Role Phone Franck Garcia MD Primary Care Provider [phone] Encounter Details Date Type Department Care Team (Late st Contact Info) Description 03/14/2008 Outpatient Historical [facility] Abilio Bernstein MD [address] [place] [phone] Social History Tobacco Use Types Packs/Day Years Used Date Smoking Tobacco: Never Assessed Sex and Gender Information Value Date Recorded Sex Assigned at Not on file Legal Sex Male 5:32 AM [employer]ENN[employer] Gender Identity Not on file Sexual Orientation Not on file documented as of this encounter Plan of Treatment Not on file documented as of this encounter Procedures Procedure Name Priority Date/Time Associated Diagnosis Comments PATHOLOGY Routine 03/14/2008 3:26 PM CDT HELICOBACTER PYLORI RAPID UREASE TEST Routine 03/14/2008 2:35 PM CDT documented in this encounter Results * PATHOLOGY (03/14/2008 3:26 PM CDT) FINAL REPORT [place] [id number] [place], [place] [address] Patient: FRANCK LOUISE : 1965 Procedure Date: 03/14/2008 Accession Date: 03/14/2008 Case No: 1- [id number] Ordering Dr: Ace BERNSTEIN Case types AW, BW, FW, NW and SH are performed by [facility], [place], [place] SURGICAL PATHOLOGY & NON-GYNECOLOGIC CYTOPATHOLOGY REPORT [...] 07:06 pm Microscopic: The sections are labeled [id number], Franck Louise. The biopsy from the esophagus [...] ORDER SIN Final Result Performing Organization Address City/State/[facility] Co de Phone Number INTERFACE SYSTEM Refer to clinic/hospital department * HELICOBACTER PYLORI RAPID UREASE TEST (03/14/2008 2:35 PM CDT) FINAL REPORT KATHARINA Test: Negative [facility] 03/14/2008 2:35 PM CDT 03/14/2008 4:10 PM CDT Abilio Bernstein MD MICROBIOLOGY - GENERAL O RDERABLES Final Result INTERFACE SYSTEM Refer to clinic/hospital department [facility] CLIA# [id number] [address] [place] [address] documented in this encounter Visit Diagnoses Not on filedocumented in this encounter Care Teams Fashion Consultant Sales Relationship Specialty [place] [address] [place], [place] [id number] PCP - General 04/25/09 documented as of this encounter
--- OUTSIDE RECORDS SUMMARY | 2024-09-02 12:15 | XMS_ITS | Encounter Summary ---
Author Organization [employer] Address 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 SODIUM 143 135 - 145 mmol/L [facility] CALCIUM 8.5 8.4 - 10.2 mg/dL [facility] CO2 29 22 - 30 mmol/L [facility] CREATININE 0.69 0.67 - 1.17 mg/dL [facility] POTASSIUM 3.7 3.5 - 4.9 mmol/L [facility] BUN 6 6 - 20 mg/dL [facility] CHLORIDE 108 96 - 108 mmol/L [facility] GFR, >60 >=60 mL/min/1.[address] [facility] GFR >60 >=60 mL/min/1.[address] [facility] Comment: Modification of Diet in Renal Disease (MDRD) study formula. Estimated GFR rate interpretative information for both Americans and non- Americans is available on the [facility] Intranet at: [email or web address] Select: Lab Policies and Procedures Select: Reference Ranges - GFR Blood specimen (specimen) 11/22/2007 5:50 AM CDT 11/22/2007 6:56 AM CDT Stuart Osborne MD CHEMISTRY ORDERABLES Edited [facility] CLIA# [id number] [address] [facility] [address] [place], [place] [address] * (ABNORMAL) CBC WITH DIFFERENTIAL (11/22/2007 5:50 AM CDT) WBC 2.3(AA) 4.0 - 9.8 K/uL [facility] Comment: Persistent abnormal result MCH 30.8 27.2 - 32.[address] [facility] MPV 10.1 9.3 - 12.[address] [facility] HEMATOCRIT 27.1(L) 40.0 - 48.0 % [facility] RDW-STDEV 50.7(H) 37.1 - 48.[address] [facility] RBC 2.92(L) 4.50 - 5.40 M/uL [facility] MCHC 33.2 31.5 - 35.5 % [facility] MCV 92.8 82.0 - 99.[address] [facility] PLATELETS 93(L) 140 - 350 K/uL [facility] Comment: Persistent abnormal result HEMOGLOBIN 9.0(L) 13.6 - 16.5 g/dL [facility] RDW 15.4(H) 11.5 - 14.5 % [facility] METAMYELOCYTE 1(H) <=0 % [facility] BANDS 12(H) 0 - 5 % [facility] POIKILOCYTES Slight [facility] BASOPHILS ABSOLUTE 0.05 0.00 - 0.20 K/uL [facility] EOSINOPHILS 1 0 - 7 % [facility] REVIEWED ON SMEAR Plt OK by Smear Rev. [facility] PLATELET EST. Consistent w/ count Normal [facility] MONOCYTE ABSOLUTE 0.14 0.10 - 1.30 K/uL [facility] LYMPHOCYTES 17 16 - 45 % [facility] POLYCHROMASIA Slight [facility] MYELOCYTES 1(H) <=0 % [facility] NEUTROPHIL ABSOLUTE 1.61(L) 1.90 - 7.00 K/uL [facility] NEUTROPHILS, SEG 58 45 - 70 % [facility] ANISOCYTOSIS Slight [facility] BASOPHILS 2 0 - 2 % [facility] EOSINOPHIL ABSOLUTE 0.02 0.00 - 0.70 K/uL [facility] ATYPICAL LYMPHOCYTE 2 0 - 5 % [facility] MONOCYTES 6 3 - 13 % [facility] TOXIC GRANULATION Slight [facility] LYMPHOCYTE ABSOLUTE 0.44(L) 0.70 - 4.50 K/uL [facility] Blood specimen (specimen) 11/22/2007 5:50 AM CDT 11/22/2007 6:56 AM CDT Stuart Osborne MD HEMATOLOGY ORDERABLES Edited [facility] CLIA# [id number] [address] [place] [address] * XR CHEST PA AND LATERAL (11/21/2007 10:56 AM CDT) Anatomical Region Laterality Modality Chest Other 11/21/2007 10:5 6 AM CDT Narrative 11/21/2007 11:49 AM CDT [facility] [address] [place], [place] [address] Admit Date: 11/16/2007 FRANCK LOUISE Sex: M Admit Prov: YE CORNELIUS Date: 1965 Primary Care Prov: CMRN: [id number] Room: [address] [place] [address] SSN: [id number] IMAGING SERVICES Ordering Prov: N/A Accession Number: [id number] Interpretation CHEST 2 VIEWS, 11/21/2007 Comparison: 11/16/2007 [...] SJ Procedure Note Lindsey Jamil - 11/21/2007 [facility] [address] [place], [place] [address] Admit Date: 11/16/2007 KIERADEMETRIFRANCK Sex: M Admit Prov: YE CORNELIUS Date: 1965 Primary Care Prov: CMRN: [id number] Room: [address] [place] [address] SSN: [id number] IMAGING SERVICES Ordering Prov: N/A Interpretation CHEST [...] No growth to date. Culture in progress [facility] FINAL REPORT No growth [address] [facility] Blood specimen (specimen) 11/21/2007 4:00 AM CDT 11/21/2007 7:15 AM CDT Stuart Osborne MD MICROBIOLOGY - GENERAL ORDERABL ES Final Result [facility] CLIA# [id number] [address] [place], [place] [address] * (ABNORMAL) CBC WITH DIFFERENTIAL (11/21/2007 3:45 AM CDT) MCV 91.3 82.0 - 99.[address] [facility] PLATELETS 81(L) 140 - 350 K/uL [facility] Comment: Persistent abnormal result HEMOGLOBIN 9.5(L) 13.6 - 16.5 g/dL [facility] RDW 14.8(H) 11.5 - 14.5 % [facility] WBC 1.8(AA) 4.0 - 9.8 K/uL [facility] Comment: Persistent abnormal result MCH 30.5 27.2 - 32.[address] [facility] MPV 10.2 9.3 - 12.[address] [facility] HEMATOCRIT 28.4(L) 40.0 - 48.0 % [facility] RDW-STDEV 47.8 37.1 - 48.[address] [facility] RBC 3.11(L) 4.50 - 5.40 M/uL [facility] MCHC 33.5 31.5 - 35.5 % [facility] BASOPHILIC STIPPLING Slight [facility] LYMPHOCYTE ABSOLUTE 0.29(L) 0.70 - 4.50 K/uL [facility] METAMYELOCYTE 1(H) <=0 % [facility] BANDS 18(H) 0 - 5 % [facility] REVIEWED ON SMEAR Plt OK by Smear Rev. [facility] POIKILOCYTES Slight [facility] BASOPHILS ABSOLUTE 0.04 0.00 - 0.20 K/uL [facility] EOSINOPHILS 3 0 - 7 % [facility] TOXIC GRANULATION Slight [facility] PLATELET EST. Consistent w/ count Normal [facility] MONOCYTE ABSOLUTE 0.20 0.10 - 1.30 K/uL [facility] LYMPHOCYTES 15(L) 16 - 45 % [facility] POLYCHROMASIA Slight [facility] MYELOCYTES 1(H) <=0 % [facility] NEUTROPHIL ABSOLUTE 1.19(L) 1.90 - 7.00 K/uL [facility] NEUTROPHILS, SEG 48 45 - 70 % [facility] ANISOCYTOSIS Slight [facility] BASOPHILS 2 0 - 2 % [facility] DOHLE BODIES Present [facility] EOSINOPHIL ABSOLUTE 0.05 0.00 - 0.70 K/uL [facility] ATYPICAL LYMPHOCYTE 1 0 - 5 % [facility] MONOCYTES 11 3 - 13 % [facility] Blood specimen (specimen) 11/21/2007 3:45 AM CDT 11/21/2007 4:06 AM CDT Hsiaoou Hu HEMATOLOGY ORDERABLES Edited [facility] CLIA# [id number] [address] [place] [address] * (ABNORMAL) C-PEPTIDE (11/21/2007 3:45 AM CDT) C-PEPTIDE 5.0(H) 0.8 - 3.1 ng/mL [facility] Comment: Lab test performed by: [employer] [address] [address] [place] [address] ERIK STUART MD Blood specimen (specimen) 11/21/2007 3:45 AM CDT 11/21/2007 4:06 AM CDT Stuart Osborne MD CHEMISTRY ORDERABLES Final Resu lt Performing Organization Address [facility] Co de Phone Number [facility] CLIA# [id number] [address] [facility] [place] [address] * BLOOD CULTURE (11/21/2007 3:45 AM CDT) REPORT/SPECIMEN COMMENT Specimen processed with suboptimal blood volume collected. Recommended adult blood volume is 8-10mL per bottle. [facility] PRELIMINARY REPORT No growth to date. Culture in progress [facility] FINAL REPORT No growth [address] [facility] Blood specimen (specimen) 11/21/2007 3:45 AM CDT 11/21/2007 7:15 AM CDT Stuart Osborne MD MICROBIOLOGY - GENERAL ORDERABL ES Final Result Performing Organization Address [facility] Co de Phone Number [facility] CLIA# [id number] [address] [facility] [place] [address] * URINALYSIS (11/20/2007 11:00 PM CDT) COLOR UA Pale Yellow [facility] NITRITE UA Negative Negative [facility] UROBILINOGEN UA <1 <=1 mg/dL [facility] PH UA 7.0 5.0 - 8.0 [facility] KETONES UA Negative Negative [facility] CLARITY UA Clear Clear [facility] BILIRUBIN UA Negative Negative [facility] PROTEIN UA Negative Negative [facility] LEUKOCYTE ESTERASE UA Negative Negative [facility] SPECIFIC GRAVITY UA 1.004 1.001 - 1.035 [facility] GLUCOSE UA Negative Negative [facility] BLOOD UA Negative Negative [facility] WBC UA 1 0 - 3 /HPF [facility] RBC UA 1 0 - 3 /HPF [facility] 11/20/2007 11:0 0 PM CDT 11/21/2007 1:43 AM CDT Stuart Osborne MD URINE ORDERABLES Edited Performing Organization Address [facility] Co de Phone Number [facility] CLIA# [id number] [address] [place] [address] * URINALYSIS WITH REFLEX CULTURE (11/20/2007 11:00 PM CDT) Pathologist [facility] URINE CULTURE ORDER Not indicated [facility] Comment: Criteria for a reflex culture [...] URINE ORDERABLES Final Result Performing Organization Address [facility] Co de Phone Number [facility] CLIA# [id number] [address] [place] [address] * (ABNORMAL) COMPREHENSIVE METABOLIC PANEL (11/20/2007 4:58 AM CDT) ALKALINE PHOSPHATASE 105 40 - 129 U/L [facility] BILIRUBIN TOTAL 0.3 0.2 - 1.0 mg/dL [facility] CO2 28 22 - 30 mmol/L [facility] TOTAL PROTEIN 6.0(L) 6.3 - 8.6 g/dL [facility] POTASSIUM 3.0(L) 3.5 - 4.9 mmol/L [facility] GLUCOSE 169(H) 65 - 99 mg/dL [facility] AST 12 12 - 38 U/L [facility] BUN 9 6 - 20 mg/dL [facility] CALCIUM 7.8(L) 8.4 - 10.2 mg/dL [facility] CHLORIDE 96 96 - 108 mmol/L [facility] ALBUMIN 3.2(L) 3.4 - 4.8 g/dL [facility] CREATININE 0.71 0.67 - 1.17 mg/dL [facility] SODIUM 135 135 - 145 mmol/L [facility] ALT 13 0 - 41 U/L [facility] GFR, >60 >=60 mL/min/1. [address] [facility] GFR >60 >=60 mL/min/1. [address] [facility] Comment: Modification of Diet in Renal Disease (MDRD) study formula. Estimated GFR rate interpretative information for both Americans and non- Americans is available on the [facility] Intranet at: [email or web address] Select: Lab Policies and Procedures Select: Reference Ranges - GFR Blood specimen (specimen) 11/20/2007 4:58 AM CDT 11/20/2007 5:41 AM CDT Hsiaoou Hu CHEMISTRY ORDERABLES Edited [facility] CLIA# [id number] [address] [place] [address] * (ABNORMAL) CBC WITH DIFFERENTIAL (11/20/2007 4:58 AM CDT) MPV 10.2 9.3 - 12.[address] [facility] HEMATOCRIT 29.2(L) 40.0 - 48.0 % [facility] RDW-STDEV 48.3 37.1 - 48.[address] [facility] RBC 3.19(L) 4.50 - 5.40 M/uL [facility] MCHC 33.6 31.5 - 35.5 % [facility] PLATELETS 81(L) 140 - 350 K/uL [facility] MCV 91.5 82.0 - 99.[address] [facility] HEMOGLOBIN 9.8(L) 13.6 - 16.5 g/dL [facility] RDW 14.7(H) 11.5 - 14.5 % [facility] WBC 1.2(AA) 4.0 - 9.8 K/uL [facility] Comment: Verified by repeat analysis. Attempt made to phone results. 11/20/07 7:02 AM MCH 30.7 27.2 - 32.[address] [facility] BASOPHILS ABSOLUTE 0.00 0.00 - 0.20 K/uL [facility] LYMPHOCYTES 10(L) 16 - 45 % [facility] RBC MORPHOLOGY Normal Normal [facility] MONOCYTE ABSOLUTE 0.17 0.10 - 1.30 K/uL [facility] NEUTROPHILS, SEG 74(H) 45 - 70 % [facility] BASOPHILS 0 0 - 2 % [facility] NEUTROPHIL ABSOLUTE 0.89(L) 1.90 - 7.00 K/uL [facility] TOTAL CELLS COUNTED IN DIFF [address] [facility] MONOCYTES 14(H) 3 - 13 % [facility] EOSINOPHIL ABSOLUTE 0.02 0.00 - 0.70 K/uL [facility] PLATELET EST. Consistent w/ count Normal [facility] LYMPHOCYTE ABSOLUTE 0.12(L) 0.70 - 4.50 K/uL [facility] EOSINOPHILS 2 0 - 7 % [facility] Blood specimen (specimen) 11/20/2007 4:58 AM CDT 11/20/2007 5:41 AM CDT [facility] HEMATOLOGY ORDERABLES Edited Performing Organization Address City/[facility]/ZIP Co de Phone Number [facility] CLIA# [id number] [address] [place], [place] [address] * BLOOD BANK DRAW ONLY (11/18/2007 1:33 PM CDT) Blood specimen (specimen) 11/18/2007 1:33 PM CDT 11/18/2007 1:33 PM CDT [facility] BLOOD BANK ORDERABLES Final Resu lt Performing Organization Address City/[facility]/ZIP Co de Phone Number INTERFACE SYSTEM Refer to clinic/hospital department * (ABNORMAL) CBC WITH DIFFERENTIAL (11/18/2007 11:55 AM CDT) HEMATOCRIT 31.7(L) 40.0 - 48.0 % [facility] RDW-STDEV 46.9 37.1 - 48.[address] [facility] RBC 3.50(L) 4.50 - 5.40 M/uL [facility] MCHC 34.1 31.5 - 35.5 % [facility] MCV 90.6 82.0 - 99.[address] [facility] HEMOGLOBIN 10.8(L) 13.6 - 16.5 g/dL [facility] RDW 14.3 11.5 - 14.5 % [facility] WBC 2.6(L) 4.0 - 9.8 K/uL [facility] MCH 30.9 27.2 - 32.[address] [facility] PLATELETS 88(L) 140 - 350 K/uL [facility] MPV 10.1 9.3 - 12.[address] [facility] MONOCYTE ABSOLUTE 0.10 0.10 - 1.30 K/uL [facility] ANISOCYTOSIS Slight [facility] LYMPHOCYTES 12(L) 16 - 45 % [facility] NEUTROPHIL ABSOLUTE 2.18 1.90 - 7.00 K/uL [facility] NEUTROPHILS, SEG 81(H) 45 - 70 % [facility] BASOPHILS 0 0 - 2 % [facility] EOSINOPHIL ABSOLUTE 0.00 0.00 - 0.70 K/uL [facility] MONOCYTES 4 3 - 13 % [facility] REVIEWED ON SMEAR Plt OK by Smear Rev. [facility] LYMPHOCYTE ABSOLUTE 0.31(L) 0.70 - 4.50 K/uL [facility] BANDS 3 0 - 5 % [facility] PLATELET EST. Consistent w/ count Normal [facility] BASOPHILS ABSOLUTE 0.00 0.00 - 0.20 K/uL [facility] EOSINOPHILS 0 0 - 7 % [facility] Blood specimen (specimen) 11/18/2007 11:55 AM CDT 11/18/2007 12:00 PM CDT us Chencho Pete MD HEMATOLOGY ORDERABLES Edite d [facility] CLIA# [id number] [address] [place] [address] * (ABNORMAL) COMPREHENSIVE METABOLIC PANEL (11/18/2007 8:17 AM CDT) CREATININE 0.75 0.67 - 1.17 mg/dL [facility] ALT 15 0 - 41 U/L [facility] SODIUM 135 135 - 145 mmol/L [facility] ALKALINE PHOSPHATASE 116 40 - 129 U/L [facility] CO2 26 22 - 30 mmol/L [facility] BILIRUBIN TOTAL 0.3 0.2 - 1.0 mg/dL [facility] POTASSIUM 3.4(L) 3.5 - 4.9 mmol/L [facility] TOTAL PROTEIN 6.2(L) 6.3 - 8.6 g/dL [facility] GLUCOSE 80 65 - 99 mg/dL [facility] AST 11(L) 12 - 38 U/L [facility] BUN 12 6 - 20 mg/dL [facility] CALCIUM 8.1(L) 8.4 - 10.2 mg/dL [facility] ALBUMIN 3.5 3.4 - 4.8 g/dL [facility] CHLORIDE 100 96 - 108 mmol/L [facility] GFR, >60 >=60 mL/min/1. [address] [facility] GFR >60 >=60 mL/min/1. [address] [facility] Comment: Modification of Diet in Renal Disease (MDRD) study formula. Estimated GFR rate interpretative information for both Americans and non- Americans is available on the [facility]an[facility] at: [email or web address] Select: Lab Policies and Procedures Select: Reference Ranges - GFR Blood specimen (specimen) 11/18/2007 8:17 AM CDT 11/18/2007 8:58 AM CDT Hsiaoou Hu CHEMISTRY ORDERABLES Edited [facility] CLIA# [id number] [address] [place] [address] * (ABNORMAL) CBC WITH DIFFERENTIAL (11/18/2007 8:17 AM CDT) HEMATOCRIT 30.2(L) 40.0 - 48.0 % [facility] RDW-STDEV 47.3 37.1 - 48.[address] [facility] RBC 3.32(L) 4.50 - 5.40 M/uL [facility] MCHC 33.8 31.5 - 35.5 % [facility] MCV 91.0 82.0 - 99.[address] [facility] HEMOGLOBIN 10.2(L) 13.6 - 16.5 g/dL [facility] RDW 14.4 11.5 - 14.5 % [facility] WBC 2.9(L) 4.0 - 9.8 K/uL [facility] MCH 30.7 27.2 - 32.[address] [facility] MONOCYTES 4 3 - 13 % [facility] MONOCYTE ABSOLUTE 0.12 0.10 - 1.30 K/uL [facility] NEUTROPHILS 83(H) 45 - 70 % [facility] NEUTROPHIL ABSOLUTE 2.41 1.90 - 7.00 K/uL [facility] EOSINOPHILS 1 0 - 7 % [facility] EOSINOPHIL ABSOLUTE 0.02 0.00 - 0.70 K/uL [facility] LYMPHOCYTES 11(L) 16 - 45 % [facility] LYMPHOCYTE ABSOLUTE 0.32(L) 0.70 - 4.50 K/uL [facility] BASOPHILS 1 0 - 2 % [facility] BASOPHILS ABSOLUTE 0.02 0.00 - 0.20 K/uL [facility] MPV 11.3 9.3 - 12.[address] [facility] PLATELETS 51(L) 140 - 350 K/uL [facility] Comment: Persistent abnormal result Platelets verified by smear review. Blood specimen (specimen) 11/18/2007 8:17 AM CDT 11/18/2007 8:58 AM CDT [facility]EM[facility] ORDERABLES Edited Performing Organization Address City/[facility]/ZIP Co de Phone Number [facility] CLIA# [id number] [address] [place], [place] [address] * PRODUCT PLATELETS (11/18/2007 7:53 AM CDT) Specimen of unknown material (specimen) 11/18/2007 7:53 AM CDT 11/18/2007 9:32 AM CDT Narrative INTERFACE SYSTEM - 11/18/2007 9:32 AM CDT stat for PEG tube placement [facility] ORDERABLES Final Resu lt Performing Organization Address [facility] Co de Phone Number INTERFACE SYSTEM Refer to clinic/hospital department * (ABNORMAL) BASIC METABOLIC PANEL (11/17/2007 1:13 PM CDT) POTASSIUM 3.9 3.5 - 4.9 mmol/L [facility] BUN 16 6 - 20 mg/dL [facility] CHLORIDE 99 96 - 108 mmol/L [facility] GLUCOSE 92 65 - 99 mg/dL [facility] SODIUM 135 135 - 145 mmol/L [facility] CALCIUM 8.3(L) 8.4 - 10.2 mg/dL [facility] CO2 27 22 - 30 mmol/L [facility] CREATININE 0.84 0.67 - 1.17 mg/dL [facility] Comment: Significant change from prior result, correlate clinically and redraw if necessary. GFR, >60 >=60 mL/min/1. [address] [facility] GFR >60 >=60 mL/min/1. [address] [facility] Comment: Modification of Diet in Renal Disease (MDRD) study formula. Estimated GFR rate interpretative information for both Americans and non- Americans is available on the [facility]an[facility] at: [email or web address] Select: Lab Policies and Procedures Select: Reference Ranges - GFR Blood specimen (specimen) 11/17/2007 1:13 PM CDT 11/17/2007 2:37 PM CDT Cyril Hua MD CHEMISTRY ORDERABLES Ed ited [facility] CLIA# [id number] [address] [facility] [place] [address] * XR CHEST PA OR AP (11/16/2007 6:42 PM CDT) Anatomical Region Laterality Modality Chest Other 11/16/2007 6:42 PM CDT Narrative 11/16/2007 9:13 PM CDT [facility] [address] [place], [place] [address] Admit Date: 11/16/2007 FRANCK LOUISE Sex: M Admit Prov: YE CORNELIUS Date: 1965 Primary Care Prov: CMRN: [id number] Room: ER-A N: [id number] IMAGING SERVICES Ordering Prov: N/A Accession Number: [id number] Interpretation Portable AP upright chest at 1840 [...] Procedure Note Cristina Otto MD - 11/16/2007 [facility] [address] [place], [place] [address] Admit Date: 11/16/2007 FRANCK LOUISE Sex: M Admit Prov: YE CORNELIUS Date: 1965 Primary Care Prov: CMRN: [id number] [facility]: [id number] IMAGING SERVICES Ordering Prov: N/A Interpretation Portable [...] CDT) CRP 4.2(H) 0.0 - 0.8 mg/dL [facility] Blood specimen (specimen) 11/16/2007 4:49 PM CDT 11/16/2007 4:59 PM CDT Jaime Luong MD CHEMISTRY ORDERABLES Final Resu lt [facility] CLIA# [id number] [address] [place] [address] * (ABNORMAL) COMPREHENSIVE METABOLIC PANEL (11/16/2007 4:49 PM CDT) CO2 31(H) 22 - 30 mmol/L [facility] TOTAL PROTEIN 7.3 6.3 - 8.6 g/dL [facility] POTASSIUM 3.2(L) 3.5 - 4.9 mmol/L [facility] GLUCOSE 118(H) 65 - 99 mg/dL [facility] AST 11(L) 12 - 38 U/L [facility] BUN 33(H) 6 - 20 mg/dL [facility] CALCIUM 9.2 8.4 - 10.2 mg/dL [facility] CHLORIDE 92(L) 96 - 108 mmol/L [facility] ALBUMIN 4.1 3.4 - 4.8 g/dL [facility] CREATININE 1.41(H) 0.67 - 1.17 mg/dL [facility] SODIUM 133(L) 135 - 145 mmol/L [facility] ALT 19 0 - 41 U/L [facility] ALKALINE PHOSPHATASE 150(H) 40 - 129 U/L [facility] BILIRUBIN TOTAL 0.5 0.2 - 1.0 mg/dL [facility] GFR, >60 >=60 mL/min/1. [address] [facility] GFR 55(L) >=60 mL/min/1. [address] [facility] Comment: Modification of Diet in Renal Disease (MDRD) study formula. Estimated GFR rate interpretative information for both Americans and non- Americans is available on the [facility] at: [email or web address] Select: Lab Policies and Procedures Select: Reference Ranges - GFR Blood specimen (specimen) 11/16/2007 4:49 PM CDT 11/16/2007 4:59 PM CDT Jaime Luong MD CHEMISTRY ORDERABLES Edited [facility] CLIA# [id number] [address] [facility] [place] [address] * (ABNORMAL) CBC WITH DIFFERENTIAL (11/16/2007 4:49 PM CDT) RBC 3.83(L) 4.50 - 5.40 M/uL [facility] MCHC 34.6 31.5 - 35.5 % [facility] MCV 90.6 82.0 - 99.[address] [facility] HEMOGLOBIN 12.0(L) 13.6 - 16.5 g/dL [facility] RDW 14.4 11.5 - 14.5 % [facility] WBC 6.2 4.0 - 9.8 K/uL [facility] MCH 31.3 27.2 - 32.[address] [facility] HEMATOCRIT 34.7(L) 40.0 - 48.0 % [facility] RDW-STDEV 47.0 37.1 - 48.[address] [facility] NEUTROPHILS 86(H) 45 - 70 % [facility] NEUTROPHIL ABSOLUTE 5.34 1.90 - 7.00 K/uL [facility] EOSINOPHILS 0 0 - 7 % [facility] EOSINOPHIL ABSOLUTE 0.02 0.00 - 0.70 K/uL [facility] LYMPHOCYTES 8(L) 16 - 45 % [facility] LYMPHOCYTE ABSOLUTE 0.49(L) 0.70 - 4.50 K/uL [facility] BASOPHILS 0 0 - 2 % [facility] BASOPHILS ABSOLUTE 0.02 0.00 - 0.20 K/uL [facility] MONOCYTES 6 3 - 13 % [facility] MONOCYTE ABSOLUTE 0.36 0.10 - 1.30 K/uL [facility] PLATELETS 67(L) 140 - 350 K/uL [facility] Comment: Platelets verified by smear review. MPV 12.0 9.3 - 12.[address] [facility] Blood specimen (specimen) 11/16/2007 4:49 PM CDT 11/16/2007 4:59 PM CDT Jaime Luong MD HEMATOLOGY ORDERABLES Edited Performing Organization Address City/[facility]/ZIP Co de Phone Number [facility] CLIA# [id number] [address] [place] [address] * BLOOD CULTURE (11/16/2007 4:49 PM CDT) PRELIMINARY REPORT No growth to date. Culture in progress [facility] FINAL REPORT No growth [address] [facility] Blood specimen (specimen) 11/16/2007 4:49 PM CDT 11/16/2007 6:48 PM CDT us Jaime Luong MD MICROBIOLOGY - GENERAL ORDERABL ES Final Result Performing Organization Address City/[facility]/ZIP Co de Phone Number [facility] CLIA# [id number] [address] [place] [place] [address] * BLOOD CULTURE (11/16/2007 4:49 PM CDT) PRELIMINARY REPORT No growth to date. Culture in progress [facility] FINAL REPORT No growth [address] [facility] Blood specimen (specimen) 11/16/2007 4:49 PM CDT 11/16/2007 6:48 PM CDT Jaime Luong MD MICROBIOLOGY - GENERAL ORDERABL ES Final Result Performing Organization Address City/[facility]/ZIP Co de Phone Number [facility] CLIA# [id number] [address] [place] [address] * URINE CULTURE (11/16/2007 4:49 PM CDT) Pathologist [facility] PRELIMINARY REPORT Pending [facility] FINAL REPORT Polymicrobial growth present consistent with urethral jin and/or colonizing bacteria. [facility] 11/16/2007 4:49 PM CDT 11/16/2007 5:26 PM CDT Jaime Luong MD MICROBIOLOGY - GENERAL ORDERABL ES Final Result Performing Organization Address [facility] Co de Phone Number [facility] CLIA# [id number] [address] [place] [address] * (ABNORMAL) URINALYSIS WITH MICROSCOPIC (11/16/2007 4:49 PM CDT) Pathologist [facility] LEUKOCYTE ESTERASE UA Negative Negative [facility] RBC UA 4(H) 0 - 3 /HPF [facility] CLARITY UA Clear Clear [facility] GLUCOSE UA Negative Negative [facility] BLOOD UA 1+(A) Negative [facility] NITRITE UA Negative Negative [facility] EPITHELIAL CELLS, URINE 0-2 /HPF [facility] UROBILINOGEN UA <1 <=1 mg/dL [facility] SPECIFIC GRAVITY UA 1.017 1.001 - 1.035 [facility] PH UA 5.5 5.0 - 8.0 [facility] WBC UA 4(H) 0 - 3 /HPF [facility] KETONES UA Negative Negative [facility] COLOR UA Yellow [facility] BILIRUBIN UA Negative Negative [facility] PROTEIN UA Trace(A) Negative [facility] 11/16/2007 4:49 PM CDT 11/16/2007 4:59 PM CDT us Jaime Luong MD URINE ORDERABLES Final Result Performing Organization Address [facility] Co de Phone Number [facility] CLIA# [id number] [address] [place] [address] * ED HOLD (11/16/2007 4:32 PM CDT) SPECIMEN HOLD, BLOOD [address] [facility] Specimen of unknown material (specimen) 11/16/2007 4:32 PM CDT 11/16/2007 4:59 PM CDT us Jaime Luong MD CHEMISTRY ORDERABLES Final Resu lt Performing Organization Address City/[facility] Co de Phone Number [facility] CLIA# [id number] [address] [place] [address] documented in this encounter Visit Diagnoses Diagnosis Hypotension, unspecified documented in this encounter Care Teams Business Center Manager Relationship Specialty [place] [address] [place] [address] PCP - General 04/25/09 documented as of this encounter
--- OUTSIDE RECORDS SUMMARY | 2024-09-02 12:15 | XMS_ITS | Encounter Summary ---
Author Organization [employer] Address [address] [place] [address] Care Team Providers Care Senior Financial Consultant Name Role Phone Clifton Garcia MD Primary Care Provider [phone] Encounter Details Date Type Department Care Team (Latest Contact Info) Description 09/03/2007 Outpatient Historical [facility] David Seymour MD [facility] [address] [place] [address] Hilario Howard MD [address] 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 [address] [place], [place] [id number] PCP - General 11/3/09 documented as of this encounter
--- OUTSIDE RECORDS SUMMARY | 2024-09-02 12:15 | XMS_ITS | Encounter Summary ---
Author Organization [employer] Address [address] [place] [address] Care Team Providers Care Head Of Operation And Logistics Name Role Phone Clifton Garcia MD Primary Care Provider [phone] Encounter Details Date Type Department Care Team (Latest Contact Info) Description 06/01/2008 Outpatient Historical [facility] David Seymour MD [address] [place] [address] [address] [place] [address] Malignant Neoplasm of Oropharynx, Unspecified Site (CMS/HCC) Social History Tobacco Use Types Packs/Day Years Used Date Smoking Tobacco: Never Assessed Sex and Gender Information Value Date Recorded Sex Assigned at Not on file 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
--- OUTSIDE RECORDS SUMMARY | 2024-09-02 12:15 | XMS_ITS | Encounter Summary ---
Author Organization [employer] Address 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
--- OUTSIDE RECORDS SUMMARY | 2024-09-02 12:15 | XMS_ITS | Encounter Summary ---
Author Organization [employer] Address 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
--- OUTSIDE RECORDS SUMMARY | 2024-09-02 12:15 | XMS_ITS | Encounter Summary ---
Author Organization [employer] Address [address] [place] [address] Care Team Providers Care Optic Fibre Drawer Name Role Phone Franck Garcia MD Primary Care Provider Encounter Details Date Type Department Care Team (Latest Contact Info) Description 10/07/2007 Outpatient Historical [facility] Stephania Howard MD 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 [place], [place] [address] Admit Date: 10/07/2007 FRANCK LOUISE Sex: M Admit Prov: STEPHANIA HOWARD Date: 1965 Primary Care Prov: CMRN: [id number] Room: [facility] SSN: [id number] IMAGING SERVICES Ordering Prov: N/A Accession Number: [id number] Interpretation WHOLE BODY PET/CT HISTORY: 42 year [...] 10:55 Procedure Note Kole Gonzalez - 10/07/[address] [address] Admit Date: 10/07/2007 FRANCK LOUISE Sex: M Admit Prov: STEPHANIA HOWARD Date: 1965 Primary Care Prov: CMRN: [id number] Room: [facility] SSN: [id number] IMAGING SERVICES Ordering Prov: N/A Interpretation WHOLE [...] neck documented in this encounter Care Teams Optic Fibre Drawer Relationship Specialty [place] [address] [place] [id number] PCP - General 04/25/09 documented as of this encounter
--- OUTSIDE RECORDS SUMMARY | 2024-09-02 12:16 | XMS_ITS | Continuity of Care Document ---
Author Organization [facility] Address [address] [place] [address] Phone Care Team Providers Care Kinder Teacher Name Role Phone Clifton Garcia MD Unavailable [...] ASSESSMENT DOC'D PRES/ABSN URINE INCON ASSESS OFFICE [id number] BODY MASS INDEX DOCD SYST BP LT [...] ASSESSMENT DOC'D PRES/ABSN URINE INCON ASSESS OFFICE [id number] BODY MASS INDEX DOCD SYST BP LT 130 MM HG DIAST BP 80-89 MM HG HEMOGLOBIN A1C HGA1C, GLYCO ROUTINE VENIPUNCTURE FALL PLAN OF CARE DOC'D URINE INCON PLAN DOC'D PRES/ABSN URINE INCON ASSESS HEMOGLOBIN A1C HGA1C, GLYCO ROUTINE VENIPUNCTURE IMMUN ADMIN (INC PERCUTANEOUS) Carole AGUILAR IRST INJ Flu Vac, quad (RIV4), Preservative And A ntibiotic Free IM OFFICE [id number] BODY MASS INDEX DOCD SYST BP LT 130 MM HG DIAST BP < 80 MM HG FALL PLAN OF CARE DOC'D URINE INCON PLAN DOC'D PRES/ABSN URINE INCON ASSESS IMMUN ADMIN (INC PERCUTANEOUS) Carole AGUILAR IRST INJ Flu Vac, quad (RIV4), Preservative And A ntibiotic Free IM HEMOGLOBIN A1C HGA1C, GLYCO ROUTINE VENIPUNCTURE OFFICE [id number] BODY MASS INDEX DOCD SYST BP GE 130 - 139MM HG DIAST BP 80-89 MM HG SCREENING COLONOSCOPY (NOT HIGH RISK) Oc FALL PLAN OF CARE DOC'D URINE INCON PLAN DOC'D PRES/ABSN URINE INCON ASSESS COMPREHEN METABOLIC PANEL [facility] 9 HEMOGLOBIN A1C HGA1C, GLYCO LIPID PANEL MICROALBUMIN, QN (URINE) CREATININE, (U-R) PSA, TOTAL ROUTINE VENIPUNCTURE IMMUN ADMIN (INC PERCUTANEOUS) LAUREN, Carole IRST INJ PNEUMOCOCCAL CONJUGATE VACCINE, 13 DOTTY T, IM Pt inelig neg scrn depres PREVENTATIVE-EST: 40-64 BODY MASS INDEX DOCD SYST BP LT 130 MM HG DIAST BP < 80 MM HG Advance Directives Directive Yes / No Effective Date File Name No Information Encounters Encounter Description Practice Location Reason(s) For Visit Diagnoses Date Provider Providers Copied on Encounter [facility] [employer], [address], [place], [place], [address] , tel: [phone] [facility] No Information 5 Jose Lazo. [address] [place] [address], [address] , [place], [place], [address], . tel:[phone] [facility], [address], [place], [place], [address] , tel: [phone] [facility] No Information 4 Jose Lazo. [address] [place] [address], [address], [place], [place], [address], [place]. tel:[phone] [facility] [employer], [address], [place], [place], [address] , tel: [phone] [facility] No Information 4 Jose Lazo. [address] [place] [address], [address] , [place], [place], [address], . tel:[phone] PREVENTATIVE -EST: 40-64 [facility] [employer], [address], [place], [place], [address] , tel: [phone] [facility] Chronic Conditions (chief complaint) Encounter for annual health examinationContr olled type 2 diabetes mellitus with diabetic cataract, without long-term current use of insulinPrimary hypertensionHype rlipidemia, unspecified hyperlipidemia typeCervical myelopathyAnxiet yScreening for prostate cancerEncounter for immunizationBody mass index [BMI] 26.0-26.9, adult 4 Jose Lazo. [address] [place] [address], [address] , [place], [place], [address], . tel:[phone] Referring Provider: Clifton Garcia, [address] [place] [address] [address] , [place], [address] . tel:[phone] OFFICE [id number]-[id number]-YW TAILED [facility], [address], [place], [place], [address] , tel: [phone] [facility] Chronic Conditions (chief complaint) Controlled type 2 diabetes mellitus with complication, without long-term current use of insulinCervical myelopathyEncoun ter for immunization 3 Jose Lazo. [address] [place] [address], [address], [place], [place], [address], . tel:[phone] Referring Provider: Clifton Garcia, [address] [place] [address] [address], [place], [address] . tel:[phone] PREVENTATIVE -EST: 64 [facility], [address], [place], [place], [address] , tel: [phone] [facility] Chronic Conditions (chief complaint) Hyperlipidemia, unspecified hyperlipidemia typeScreening for prostate cancerEncounter for annual health examinationContr olled type 2 diabetes mellitus without complication, without long-term current use of insulinPrimary hypertensionCerv ical myelopathyChroni c sinusitis, unspecified location 3 Jose Lazo. [address] [place] [address], [address], [place], [place], [address], . [phone] Referring Provider: Clifton Garcia [address] [place] [address] [address] , [place], [address] . tel:[phone] PREVENTATIVE -EST: [facility], [address], [place], [place], [address] , tel: [phone] [facility] Chronic Conditions (chief complaint) Encounter for annual health examinationContr olled type 2 diabetes mellitus without complication, without long-term current use of insulinPrimary hypertensionHype rlipidemia, unspecified hyperlipidemia typeCervical myelopathySmoker Screening for prostate cancer 1 Jose Lazo. [address] [place] [address], [address], [place], [place], [address], . [phone] Referring Provider: Clifton Garcia [address] [place] [address] [address], [place], [address] . tel:[phone] OFFICE [id number]-OLN-KR [facility], [address], [place], [place], [address] , tel: [phone] [facility] Chronic Conditions (chief complaint) Controlled type 2 diabetes mellitus without complication, without long-term current use of insulinSmokerSea rafael allergic rhinitis, unspecified trigger 0 Jose Lazo. [address] [place] [address], [address], [place], [place], [address], [place]. tel:[phone] Referring Provider: Clifton Garcia, [address] [place] [address] [address], [place], [address] . tel:[phone] OFFICE FJESZ-HYV-BH [facility], [address], [place], [place], [address] , tel: [phone] [facility] Chronic Conditions (chief complaint) Uncontrolled type 2 diabetes mellitus with hyperglycemiaEnc ounter for immunizationEsse ntial hypertensionHype rlipidemia, unspecified hyperlipidemia typeErectile dysfunction, unspecified erectile dysfunction typeSmoker 0 Jose Lazo. [address] [place] [address], [address], [place], [place], [address], [place]. tel:[phone] Referring Provider: Clifton Garcia, [address] [place] [address] [address], [place], [address] . tel:[phone] [facility]ICE [facility], [address], [place], [place], [address] , [place] tel: [phone] [facility] Chronic Conditions (chief complaint) Controlled type 2 diabetes mellitus without complication, without long-term current use of insulinEncounter for immunizationErec tile dysfunction due to diseases classified elsewhere 9 Jose Lazo. [address] [place] [address], [address], [place], [place], [address], [place]. tel:[phone] Referring Provider: Clifton Garcia [address] [place] [address] [address], [place], [address] . tel:[phone] [facility], [address], [place], [place], [address] , [place] tel: [phone] [facility] No Information 9 Marisol Alatorre. [address] [place] [address], [facility], [place], [place], [address], [place]. tel:[phone] Referring Provider: Clifton Garcia [address] [place] [address] [address], [place], [address] . tel:[phone] PREVENTATIVE -EST: 40-64 [facility], [address], [place], [place], [address] , tel: [phone] [facility] Chronic Conditions (chief complaint) Cervical myelopathyContro lled type 2 diabetes mellitus without complication, without long-term current use of insulinEssential hypertensionHype rlipidemia, unspecified hyperlipidemia typeSkin lesionSmokerScre ening for prostate cancerScreening for colon cancerBody mass index (BMI) 26.0-26.9, adultEncjohn f. kennedy memorial hospitaler for general health examination 9 Jose Lazo. [address] [place] [address], [address], [place], [place], [address], . tel:[phone] Referring Provider: Clifton Garcia, [address] [place] [address] [address], [place], [address] . tel:[phone] [facility], [address], [place], [place], [address] , tel: [phone] [facility] Controlled type 2 diabetes mellitus without complication, without long-term current use of insulinHyperlipi demia, unspecified hyperlipidemia typeCervical myelopathyEssent ial hypertensionScre ening for prostate cancer Jose Lazo. [address] [place] [address], [address], [place], [place], [address], . tel:[phone] Referring Provider: Clifton Garcia, [address] [place] [address] [address], [place], [address] . tel:[phone] [facility] [address], [place], [place], [address] , tel: [phone] [facility] UnderweightCervi heidi myelopathyContro lled type 2 diabetes mellitus without complication, without long-term current use of insulin 7 Elsa Almazan. [address] [place] [address], [address], [place], [place], [address], . tel:[phone] Referring Provider: Clifton Garcia, [address] [place] [address] [address], [place], [address] . tel:[phone] [facility] [employer], [address], [place], [place], [address] , tel: [phone] [facility] Radiculopathy of cervical region [facility]. [address], [place], [place], [address]. tel: [phone] [facility] [employer], [address], [place], [place], [address] , tel: [phone] [facility] Cervical radiculopathyAcu te non-recurrent sinusitis, unspecified location [facility]. [address], [place], [place], [address]. tel: [phone] Referring Provider: Clifton Garcia, [address] [place] [address] [address], [place], [address] . tel:[phone] [facility], [address], [place], [place], [address] , tel: [phone] [facility] Controlled type 2 diabetes mellitus without complication, without long-term current use of insulinEssential hypertensionHype rlipidemia, unspecified hyperlipidemia typeMild episode of recurrent major depressive disorderGastroes ophageal reflux disease without esophagitisSmoke rAnxietyNeed for Tdap vaccination [facility]. [address] , [facility] [address], [place], [place], [address]. tel:[phone] Referring Provider: Clifton Garcia, [address] [place] [address] [address], [place], [address] . tel:[phone] [facility], [address], [place], [place], [address] , tel: [phone] [facility] Diabetes mellitus type 2, uncontrolledHype rlipidemia, unspecified Jose Lazo. [address] [place] [address], [address], [place], [place], [address], . tel:[phone] Referring Provider: Clifton Garcia [address] [place] [address] [address], [place], [address] . tel:[phone] [facility], [address], [place], [place], [address] , tel: [phone] [facility] Encounter for general health examinationDiabe brenda mellitus type 2, controlledHypert ensionHyperlipid emiaED (erectile dysfunction)Pros valentin cancer screening [address] [place] [address], [address], [place], [place], [address], . tel:[phone] Referring Provider: Clifton Garcia, [address] [place] [address] [address], [place], [address] . tel:[phone] [facility], [address], [place], [place], [address] , tel: [phone] [facility] Dysthymic disorderDiabetes mellitus without mention of complication, type II or unspecified type, not stated as uncontrolledEsop hageal refluxOther and unspecified hyperlipidemiaUn specified essential hypertension [address] [place] [address], [address], [place], [place], [address], . tel:[phone] Referring Provider: Clifton Garcia, [address] [place] [address] [address], [place], [address] . tel:[phone] [facility], [address], [place], [place], [address] , tel: [phone] [facility] Diabetes mellitus type 2, controlledHypert ensionHyperlipid emiaGERD (gastroesophagea l reflux disease)Anxiety and depressionPerson al history of malignant neoplasm of other and unspecified parts of oral cavity and pharynxFatigueSc reening for malignant neoplasms of the prostate 3 Brice Gallagher. [address] [facility], [address], [place], [place], [address]. tel:[phone] Referring Provider: Clifton Garcia, [address] [place] [address] [address], [place], [address] . tel:[phone] [facility], [address], [place], [place], [address] , tel: [phone] [facility] Unspecified essential hypertensionEsop hageal refluxDiabetes mellitus type 2, controlledHyperl ipidemiaPersonal history of malignant neoplasm of other and unspecified parts of oral cavity and pharynxDepressiv e disorder, not elsewhere classified 2 Brice Gallagher. [address] [place] [address], [address], [place], [place], [address]. tel:[phone] Referring Provider: Clifton Garcia, [address] [place] [address] [address], [place], [address] . tel:[phone] [facility], [address], [place], [place], [address] , tel: [phone] [facility] Diabetes mellitus without mention of complication, type II or unspecified type, not stated as uncontrolledOthe r and unspecified hyperlipidemiaEs ophageal refluxPersonal history of malignant neoplasm of other and unspecified parts of oral cavity and pharynx 2 Jose Lazo. [address] [place] [address], [facility] [address] [place], [place], [address], . tel:[phone] [facility], [address], [place], [place], [address] , tel: [phone] [facility] Diabetes mellitus without mention of complication, type II or unspecified type, not stated as uncontrolledUnsp ecified essential hypertensionOthe r and unspecified hyperlipidemiaEs ophageal refluxANXIETY STATE NOSScreening for malignant neoplasms of the prostate 1 Jose Lazo. [address] [place] [address], [facility] [address] [place], [place], [address], . tel:[phone] Referring Provider: Clifton Garcia, [address] [place] [address] [address], [place], [address] . tel:[phone] [facility], [address], [place], [place], [address] , tel: [phone] [facility] DM Controlled, No ComplicationUnsp ecified essential hypertensionOthe r and unspecified hyperlipidemiaAn xiety state, unspecifiedEsoph ageal reflux 1 Jose Lazo. [address] [place] [address], [facility] [address] [place], [address], . tel:[phone] Referring Provider: Clifton Garcia, [address] [place] [address] [address], [place], [address] . tel:[phone] [facility], [address], [place], [place], [address] , [place] tel: [phone] [facility] Unspecified essential hypertension 201 1 oJse Lazo. [address] [place] [address], [address], [place], [place], [address], . tel: [phone] [facility], [address], [place], [place], [address] , [place] tel:[phone] [facility] SCREENING-PULMON RUTH TB 8200 8 Garciaольга Lazo. [address] [place] [address], [address], [place], [place], [address], [place]. tel: [phone] [facility], [address], [place], [place], [address] , tel: [phone] [facility] ACUTE BRONCHITIS 8 Elsa Norah. [address] [place] [address], [address], [place], [place], [address], [place]. tel: [phone] [facility], [address], [place], [address] , [place] tel: [phone] [facility] ENLARGEMENT LYMPH NODES 8 Garciaольга Lazo. [address] [place] [address], [address], [place], [place], [address], [place]. tel: [phone] [facility], [address], [place], [place], [address] , [place] tel: [phone] [facility] CHEST PAIN NOS 8200 8 Conversion Doctor. [address], [place], [address], [place]. [facility], [address], [place], [place], [address] , [place] tel: [phone] [facility] COUGH 5200 7 Conversion Doctor. [address], [place], [address], [place]. [facility], [address], [place], [place], [address] , [place] tel: [phone] [facility] ACUTE URI NOS 1200 6 Conversion Doctor. [address] [place] [address], [address], [place]. [facility] [employer], [address], [place], [address] , [place] tel: [phone] [facility] ANXIETY STATE NOS 6 [address] [place] [address], [address], [place], [place], [address], [place]. tel: [phone] [facility] [employer], [address], [place], [place], [address] , [place] tel: [phone] [facility] BENIGN HYPERTENSIONDMII WO CMP NT ST UNCNTRSHORTNESS OF BREATHMIXED HYPERLIPIDEMIAMA LAISE AND FATIGUE NEC [address] [place] [address], [address], [place], [place], [address], [place]. tel: [phone] [facility] [employer], [address], [place], [place], [address] , [place] tel: [phone] [facility] PURE HYPERCHOLESTEROL EMHYPERLIPIDEMIA NEC/NOS 6 Jose Lazo. [address] [place] [address], [address], [place], [place], [address], [place]. tel: [phone] Family History Family Member Type Diagnosis Age At Onset Mother Problem (finding) diabetes melli tus in first degree relative Father Problem (finding) prostate cancer Immunizations Vaccine Date Status Comments zoster recombinant administered Source: O ther Provider zoster recombinant administered Source: O ther Provider Fluzone High-Dose, high dose , preservative free administered Source: New Immuniza tion Record Pfizer (Diluent Reconstitute d) COVID19 Vaccine, 0.3mL [...] Record Payers Payer name Insurance type Covered democrat ID Authoriza tion(s) [facility] CI [id number] [facility] CI [id number] [facility] CI [id number] [facility] CI [id number] Social History Type Description Quantity Date Captured [...] nt Illness Chronic Conditions *See Chronic Conditions [facility] Chronic Conditions *See Chronic Conditions [facility] Chronic Conditions *See Chronic Conditions [facility] Chronic Conditions *See Chronic Conditions [facility] Chronic Conditions *See Chronic Conditions [facility] Chronic Conditions *See Chronic Conditions [facility] Chronic Conditions *See Chronic Conditions [facility] Chronic Conditions *See Chronic Conditions [facility] Functional Status Date Functional Assessmen t No [...] Encou nter for immunization OK to try wound care physician. Rel ated to Cervical myelopathy Continue medications at current dose/regimen and check A1C. Goals: Your goal is to monitor your diabetes. Barriers: No barriers to goal achievement have been identified. Related to Controlled type 2 diabetes mellitus with complication, without long-term current use of insulin Disease process Check PSA today. Related to Scre ening for prostate cancer Given [facility] U ENT inf ormation to call and [...] d to Encounter for annual health examination Disease process Urinary Incontinence Diabetes Health Report Fall Risk Prevention Continue medications at current dose/regimen and check [...] ications for now. Related to Essential hypertension Diabetes Health Report Disease process Retry sildenafil and call if not helping. [...] mass index (BMI) 26.0-26.9, adult Disease process Disease process Dietary management e ducation, guidance, and counseling Related to Body mass index (BMI) 26.0-26.9, adult Assessments Type Assessment Date No Information Patient Care Teams Name Effective Dates (start - stop) Status Members No Information
--- OUTSIDE RECORDS SUMMARY | 2024-09-02 12:16 | XMS_ITS | Continuity of Care Document ---
Author Organization [facility] Address [address] [place] [address] Phone Care Team Providers Care Monomer Recovery Operator Name Role Phone Raoul Salomon DO Unavailable Unavailable Advance Directives Directive Yes / No Effective Date File Name No Information Encounters Encounter Description Practice Location Reason(s) For Visit Diagnoses Date Provider Providers Copied on Encounter [facility], [address], [place], [place], [address], [place] tel:[phone] [facility] No Information Aime Suarez. [address] [facility], [place], [address], [place]. tel: [phone] Family History Family Member Type Diagnosis Age At Onset No Information Payers Payer name Insurance type Covered democrat ID Authoriza tion(s) [facility] Commercial CI [id number] Social History Type Description Quantity Date [...]
[2024-09-02] MEDS: LABETALOL HCL INJ 100 MG/20 ML VIAL 20 MG IV PUSH ×2 (12:57→16:06)
[2024-09-02] MEDS: levoFLOXacin 750 MG/D5W 150 ML 750 MG/150 ML BAG 100 MG IVPB (13:00)
== END 2024-09-02 16:38 ==
PROVIDERS: Emergency Provider Emergency Medicine; PCP Internal Medicine
DX: R10.9 Unspecified abdominal pain (principal); I10 Essential (primary) hypertension; F17.290 Nicotine dependence, other tobacco product, uncomplicated; K40.20 Bilateral inguinal hernia, without obstruction or gangrene, not specified as recurrent; Z79.84 Long term (current) use of oral hypoglycemic drugs; Z79.899 Other long term (current) drug therapy
CPT/HCPCS: 36415; 71045; 74177; 80053; 81003; 83690; 85025; 87040; 96361; 96365; 96375; 96376; 99284; J1956; J7030; Q9967

== ENCOUNTER 2025-02-14 08:23 | Emergency (ER) | payer BC, SELFPAY ==
--- OUTSIDE RECORDS SUMMARY | 2003-05-24 04:30 | XMS_ITS | Continuity of Care Document ---
Author Organization [facility] Address [address] [place] [address] Phone Care Team Providers Care Caregiver Services Home Name Role Phone Raoul Salomon DO Unavailable Unavailable Advance Directives Directive Yes / No Effective Date File Name No Information Encounters Encounter Description Practice Location Reason(s) For Visit Diagnoses Date Provider Providers Copied on Encounter [facility], [address], [place], [place], [id number], [place] tel:[phone] [facility] No Information Aime Suarez. [address] [facility], [place], [address], [place]. tel: [phone] Family History Family Member Type Diagnosis Age At Onset No Information Payers Payer name Insurance type Covered constitution party ID Authoriza tion(s) [facility] Commercial CI [id number] Social History Type Description Quantity Date Captured Comments Sex Male Smoking Status No Information Chief Complaint And Reason For Visit No Information Reason For Referral Reason For Referral No Information History Of Present Illness Encounter Date Complaint History Of Prese nt Illness No Information Functional Status Date Functional Assessmen t No Information Instructions Date Instruction Additional Infor mation No Information Assessments Type Assessment Date No Information Patient Care Teams Name Effective Dates (start - stop) Status Members No Information
--- OUTSIDE RECORDS SUMMARY | 2024-09-15 04:43 | XMS_ITS | Continuity of Care Document ---
Author Organization [facility] Address [address] [place] [address] Phone Care Team Providers Care Pharmacy Intake Coordinator Name Role Phone Clifton Garcia MD Unavailable [...] ASSESSMENT DOC'D PRES/ABSN URINE INCON ASSESS OFFICE [id number] BODY MASS INDEX DOCD SYST BP LT [...] ASSESSMENT DOC'D PRES/ABSN URINE INCON ASSESS OFFICE [id number] BODY MASS INDEX DOCD SYST BP LT 130 MM HG DIAST BP 80-89 MM HG HEMOGLOBIN A1C HGA1C, GLYCO ROUTINE VENIPUNCTURE FALL PLAN OF CARE DOC'D URINE INCON PLAN DOC'D PRES/ABSN URINE INCON ASSESS HEMOGLOBIN A1C HGA1C, GLYCO ROUTINE VENIPUNCTURE IMMUN ADMIN (INC PERCUTANEOUS) Carole AGUILAR IRST INJ Flu Vac, quad (RIV4), Preservative And A ntibiotic Free IM OFFICE [id number] BODY MASS INDEX DOCD SYST BP LT 130 MM HG DIAST BP < 80 MM HG FALL PLAN OF CARE DOC'D URINE INCON PLAN DOC'D PRES/ABSN URINE INCON ASSESS IMMUN ADMIN (INC PERCUTANEOUS) Carole AGUILAR IRST INJ Flu Vac, quad (RIV4), Preservative And A ntibiotic Free IM HEMOGLOBIN A1C HGA1C, GLYCO ROUTINE VENIPUNCTURE OFFICE [id number] BODY MASS INDEX DOCD SYST BP GE 130 - 139MM HG DIAST BP 80-89 MM HG SCREENING COLONOSCOPY (NOT HIGH RISK) Oc FALL PLAN OF CARE DOC'D URINE INCON PLAN DOC'D PRES/ABSN URINE INCON ASSESS COMPREHEN METABOLIC PANEL [facility] 9 HEMOGLOBIN A1C HGA1C, GLYCO LIPID [...] Diagnoses Date Provider Providers Copied on Encounter [facility], [address], [place], [place], [address] , tel: [phone] [facility] No Information 5 Jose Lazo. [address] [place] [address], [address] , [place], [place], [address], . tel:[phone] [facility], [address], [place], [place], [address] , tel: [phone] [facility] No Information 4 Jose Lazo. [address] [place] [address], [address], [place], [place], [address], [place]. tel:[phone] [facility], [address], [place], [place], [address] , tel: [phone] [facility] No Information 4 Jose Lazo. [address] [place] [address], [address] , [place], [place], [address], . tel:[phone] PREVENTATIVE -EST: 40-64 [facility], [address], [place], [place], [address] , tel: [phone] [facility] Chronic Conditions (chief complaint) Encounter for annual health examinationContr olled type 2 diabetes mellitus with diabetic cataract, without long-term current use of insulinPrimary hypertensionHype rlipidemia, unspecified hyperlipidemia typeCervical myelopathyAnxiet yScreening for prostate cancerEncounter for immunizationBody mass index [BMI] 26.0-26.9, adult 4 Jose Lazo. [address] [place] [address], [address] , [place], [place], [address], [place]. tel:[phone] Referring Provider: Clifton Garcia, [address] [place] [address] [address] , [place], [address] . tel:[phone] OFFICE OVCIB-VQL-OZ TAILED [facility], [address], [place], [place], [address] , tel: [phone] [facility] Chronic Conditions (chief complaint) Controlled type 2 diabetes mellitus with complication, without long-term current use of insulinCervical myelopathyEncoun ter for immunization 3 Jose Lazo. [address] [place] [address], [address], [place], [place], [address], . tel:[phone] Referring Provider: Clifton Garcia, [address] [place] [address] [address], [place], [address] . tel:[phone] PREVENTATIVE -EST: 62 [facility], [address], [place], [place], [address] , tel: [phone] [facility] Chronic Conditions (chief complaint) Hyperlipidemia, unspecified hyperlipidemia typeScreening for prostate cancerEncounter for annual health examinationContr olled type 2 diabetes mellitus without complication, without long-term current use of insulinPrimary hypertensionCerv ical myelopathyChroni c sinusitis, unspecified location 3 Jose Lazo. [address] [place] [address], [address], [place], [place], [address], . [phone] Referring Provider: Clifton Garcia, [address] [place] [address] [address] , [place], [address] . tel:[phone] PREVENTATIVE -EST: [facility], [address], [place], [place], [address] , tel: [phone] [facility] Chronic Conditions (chief complaint) Encounter for annual health examinationContr olled type 2 diabetes mellitus without complication, without long-term current use of insulinPrimary hypertensionHype rlipidemia, unspecified hyperlipidemia typeCervical myelopathySmoker Screening for prostate cancer 1 Jose Lazo. [address] [place] [address], [address] , [place], [place], [address], . [phone] Referring Provider: Clifton Garcia, [address] [place] [address] [address], [place], [address] . tel:[phone] OFFICE WIJWS-DIS-MO [facility], [address], [place], [place], [address] , tel: [phone] [facility] Chronic Conditions (chief complaint) Controlled type 2 diabetes mellitus without complication, without long-term current use of insulinSmokerSea rafael allergic rhinitis, unspecified trigger 0 Jose Lazo. [address] [place] [address], [address], [place], [place], [address], [place]. tel:[phone] Referring Provider: Clifton Garcia [address] [place] [address] [address], [place], [address] . tel:[phone] OFFICE DBNIK-OPS-KZ TAILED [facility], [address], [place], [place], [address] , tel: [phone] [facility] Chronic Conditions (chief complaint) Uncontrolled type 2 diabetes mellitus with hyperglycemiaEnc ounter for immunizationEsse ntial hypertensionHype rlipidemia, unspecified hyperlipidemia typeErectile dysfunction, unspecified erectile dysfunction typeSmoker 0 Jose Lazo. [address] [place] [address], [address], [place], [place], [address], [place]. tel:[phone] Referring Provider: Clifton Garcia, [address] [place] [address] [address], [place], [address] . tel:[phone] OFFICE IZRTP-MAQ-NU PANDED [facility], [address], [place], [place], [address] , [place] tel: [phone] [facility] Chronic Conditions (chief complaint) Controlled type 2 diabetes mellitus without complication, without long-term current use of insulinEncounter for immunizationErec tile dysfunction due to diseases classified elsewhere 9 Jose Lazo. [address] [place] [address], [address], [place], [place], [address], [place]. tel:[phone] Referring Provider: Clifton Garcia [address] [place] [address] [address], [place], [address] . tel:[phone] [facility], [address], [place], [place], [address] , [place] tel:[phone] [facility] No Information 9 Marisol Alatorre. [address] [place] [address], [facility] [address], [place], [place], [address], [place]. tel:[phone] Referring Provider: Clfiton Garcia [address] [place] [address] [address], [place], [address] . tel:[phone] PREVENTATIVE -EST: 40-64 [facility], [address], [place], [place], [address] , tel: [phone] [facility] Chronic Conditions (chief complaint) Cervical myelopathyContro lled type 2 diabetes mellitus without complication, without long-term current use of insulinEssential hypertensionHype rlipidemia, unspecified hyperlipidemia typeSkin lesionSmokerScre ening for prostate cancerScreening for colon cancerBody mass index (BMI) 26.0-26.9, adultOhiohealth Shelby Hospitaler for general health examination 9 Jose Lazo. [address] [place] [address], [address], [place], [place], [address], . tel:[phone] Referring Provider: Clifton Garcia, [address] [place] [address] [address], [place], [address] . tel:[phone] [facility] [address], [place], [place], [address] , tel: [phone] [facility] Controlled type 2 diabetes mellitus without complication, without long-term current use of insulinHyperlipi demia, unspecified hyperlipidemia typeCervical myelopathyEssent ial hypertensionScre ening for prostate cancer 7 Jose Lazo. [address] [place] [address], [address], [place], [place], [address], . tel:[phone] Referring Provider: Clifton Garcia, [address] [place] [address] [address], [place], [address] . tel:[phone] [facility] [address], [place], [place], [address] , tel: [phone] [facility] UnderweightCervi heidi myelopathyContro lled type 2 diabetes mellitus without complication, without long-term current use of insulin 7 Elsa Almazan. [address] [place] [address], [address] , [place], [place], [address], . tel:[phone] Referring Provider: Clifton Garcia, [address] [place] [address] [address], [place], [address] . tel:[phone] [facility] [address], [place], [place], [address] , tel: [phone] [facility] Radiculopathy of cervical region Brice Aileen. [address] , [address], [place], [place], [address]. tel: [phone] [facility], [address], [place], [place], [address] , tel: [phone] [facility] Cervical radiculopathyAcu te non-recurrent sinusitis, unspecified location Brice Aileen. [address] , [address], [place], [place], [address]. tel: [phone] Referring Provider: Clifton Garcia, [address] [place] [address] [address], [place], [address] . tel:[phone] [facility], [address], [place], [place], [address] , tel: [phone] [facility] Controlled type 2 diabetes mellitus without complication, without long-term current use of insulinEssential hypertensionHype rlipidemia, unspecified hyperlipidemia typeMild episode of recurrent major depressive disorderGastroes ophageal reflux disease without esophagitisSmoke rAnxietyNeed for Tdap vaccination Brice Aileen. [address] , [facility] [address], [place], [place], [address]. tel:[phone] Referring Provider: Clifton Garcia, [address] [place] [address] [address], [place], [address] . tel:[phone] [facility], [address], [place], [place], [address] , tel: [phone] [facility] Diabetes mellitus type 2, uncontrolledHype rlipidemia, unspecified Jose Lazo. [address] [place] [address], [address], [place], [place], [address], . tel:[phone] Referring Provider: Clifton Garcia, [address] [place] [address] [address], [place], [address] . tel:[phone] [facility], [address], [place], [place], [address] , tel: [phone] [facility] Encounter for general health examinationDiabe brenda mellitus type 2, controlledHypert ensionHyperlipid emiaED (erectile dysfunction)Pros valentin cancer screening 5 Jose Lazo. [address] [place] [address], [address], [place], [place], [address], . tel:[phone] Referring Provider: Clifton Garcia, [address] [place] [address] [address], [place], [address] . tel:[phone] [facility], [address], [place], [place], [address] , tel: [phone] [facility] Dysthymic disorderDiabetes mellitus without mention of complication, type II or unspecified type, not stated as uncontrolledEsop hageal refluxOther and unspecified hyperlipidemiaUn specified essential hypertension 3 Elsa Almazan. [address] [place] [address], [address], [place], [place], [address], . tel:[phone] Referring Provider: Clifton Garcia, [address] [place] [address] [address], [place], [address] . tel:[phone] [facility], [address], [place], [place], [address] , tel: [phone] [facility] Diabetes mellitus type 2, controlledHypert ensionHyperlipid emiaGERD (gastroesophagea l reflux disease)Anxiety and depressionPerson al history of malignant neoplasm of other and unspecified parts of oral cavity and pharynxFatigueSc reening for malignant neoplasms of the prostate [address] [place] [address], [address], [place], [place], [address]. tel:[phone] Referring Provider: Clifton Garcia, [address] [place] [address] [address], [place], [address] . tel:[phone] [facility], [address], [place], [place], [address] , tel: [phone] [facility] Unspecified essential hypertensionEsop hageal refluxDiabetes mellitus type 2, controlledHyperl ipidemiaPersonal history of malignant neoplasm of other and unspecified parts of oral cavity and pharynxDepressiv e disorder, not elsewhere classified 2 Brice Gallagher. [address] [place] [address], [address], [place], [place], [address]. tel:[phone] Referring Provider: Clifton Garcia, [address] [place] [address] [address], [place], [address] . tel:[phone] [facility], [address], [place], [place], [address] , tel: [phone] [facility] Diabetes mellitus without mention of complication, type II or unspecified type, not stated as uncontrolledOthe r and unspecified hyperlipidemiaEs ophageal refluxPersonal history of malignant neoplasm of other and unspecified parts of oral cavity and pharynx 2 Jose Lazo. [address] [place] [address], [facility] [address] [place], [place], [address], . tel:[phone] [facility], [address], [place], [place], [address] , tel: [phone] [facility] Diabetes mellitus without mention of complication, type II or unspecified type, not stated as uncontrolledUnsp ecified essential hypertensionOthe r and unspecified hyperlipidemiaEs ophageal refluxANXIETY STATE NOSScreening for malignant neoplasms of the prostate 1 Jose Lazo. [address] [place] [address], [facility] [address] [place], [place], [address], . tel:[phone] Referring Provider: Clifton Garcia, [address] [place] [address] [address], [place], [address] . tel:[phone] [facility], [address], [place], [place], [address] , tel: [phone] [facility] DM Controlled, No ComplicationUnsp ecified essential hypertensionOthe r and unspecified hyperlipidemiaAn xiety state, unspecifiedEsoph ageal reflux 1 Jose Lazo. [address] [place] [address], [address], [place], [place], [address], . tel:[phone] Referring Provider: Clifton Garcia, [address] [place] [address] [address], [place], [address] . tel:[phone] [facility], [address], [place], [place], [address] , [place] tel: [phone] [facility] Unspecified essential hypertension 0 3201 1 Jose Lazo. [address] [place] [address], [address], [place], [place], [address], . tel: [phone] [facility], [address], [place], [place], [address] , [place] tel:[phone] [facility] SCREENING-PULMON RUTH TB 8200 8 Garciaольга Lazo. [address] [place] [address], [address], [place], [place], [address], [place]. tel: [phone] [facility], [address], [place], [place], [address] , tel: [phone] [facility] ACUTE BRONCHITIS 0 7200 8 Elsa Almazan. [address] [place] [address], [address], [place], [place], [address], [place]. tel: [phone] [facility], [address], [place], [place], [address] , [place] tel: [phone] [facility] ENLARGEMENT LYMPH NODES 7200 8 Garcia Clifton. [address] [place] [address], [address], [place], [place], [address], [place]. tel: [phone] [facility], [address], [place], [place], [address] , [place] tel: [phone] [facility] CHEST PAIN NOS 8200 8 [facility]. [facility], [place], [address], [place]. [facility], [address], [place], [place], [address] , [place] tel: [phone] [facility] COUGH 5-200 7 [facility] Doctor. [address], [place], [address], [place]. [facility], [address], [place], [place], [address] , [place] tel: [phone] [facility] ACUTE URI NOS 1-200 6 [employer] [facility]. [address] [place], [address], [place]. [facility], [address], [place], [place], [address] , [place] tel: [phone] [facility] ANXIETY STATE NOS [address] [place] [address], [address], [place], [place], [address], [place]. tel: [phone] [facility], [address], [place], [place], [address] , [place] tel: [phone] [facility] BENIGN HYPERTENSIONDMII WO CMP NT ST UNCNTRSHORTNESS OF BREATHMIXED HYPERLIPIDEMIAMA LAISE AND FATIGUE NEC [address] [place] [address], [address], [place], [place], [address], [place]. tel: [phone] [facility], [address], [place], [place], [address] , [place] tel: [phone] [facility] PURE HYPERCHOLESTEROL EMHYPERLIPIDEMIA NEC/NOS 6 Jose Lazo. [address] [place] [address], [address], [place], [place], [address], [place]. tel: [phone] Family History Family Member Type Diagnosis Age [...] Record Payers Payer name Insurance type Covered libertarian ID Authoriza tion(s) [facility] CI [id number] [facility] CI [id number] [facility] CI [id number] [facility] CI [id number] Social History Type Description Quantity Date Captured [...] nt Illness Chronic Conditions *See Chronic Conditions [facility] Chronic Conditions *See Chronic Conditions [facility] Chronic Conditions *See Chronic Conditions [facility] Chronic Conditions *See Chronic Conditions [facility] Chronic Conditions *See Chronic Conditions [facility] Chronic Conditions *See Chronic Conditions [facility] Chronic Conditions *See Chronic Conditions [facility] Chronic Conditions *See Chronic Conditions [facility] Functional Status Date Functional Assessmen t No Information Instructions Date Instruction Additional Infor mation Check PSA today. 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 Rel ated to Cervical myelopathy Continue medications [...]
[2025-02-14] VITALS (9 sets, daily range): BP systolic 85–137; BP diastolic 64–122; PULSE 79–88; RESP 20; TEMP 36.9; O2SAT 92–100
--- NOTE | ~2025-02-14 | CT_ITS ---
EXAMINATION: CT brain wo con DATE: 02/14/2025 08:52 INDICATION: Status post fall from wheelchair. TECHNIQUE: Computed tomography (CT) of the head was performed without intravenous contrast. The dose-length product was 681.00 mGy-cm. Automated exposure control and iterative reconstruction technique were employed. COMPARISON: CT dated 08/12/2024 FINDINGS: There are chronic infarctions of the right frontal lobe, left frontal lobe and left centrum semiovale as well as the left basal ganglia. There is intracranial atherosclerosis. No ventriculomegaly or midline shift. Basilar cisterns are patent. There are scattered moderate periventricular and s ubcortical white matter changes, most likely related to small vessel ischemic disease (microangiopathy). Paranasal sinuses and mastoids are pneumatized. No depressed skull fractures. IMPRESSION: 1. No acute intracranial abnormality. 2: Chronic bilateral infarctions discussed above. Reviewed, dictated and finalized at location O.
--- NOTE | ~2025-02-14 | CT_ITS ---
EXAMINATION: CT cervical spine wo con DATE: 02/14/2025 08:52 INDICATION: Status post fall from wheelchair. TECHNIQUE: Computed tomography (CT) of the cervical spine was performed without intravenous contrast. The dose-length product was 310 mGy-cm. Automated exposure control and iterative reconstruction technique were employed. COMPARISON: CT dated 08/12/2024 FINDINGS: There is severe facet degenerative changes at C3-4 and C4-5. There is degenerative anterolisthesis at these levels which is stable. Craniovertebral junction is normal. Odontoid process is normal. There is levocurvature of the cervical spine. Lung apices are unremarkable. There is intracranial atherosclerosis. There is carotid atherosclerosis. Lung apices are normal. No acute fracture, subluxation or dislocation. IMPRESSION: 1. No acute abnormality of the cervical spine. 2: Severe cervical spondylosis with levoscoliosis. Reviewed, dictated and finalized at location O.
--- NOTE | 2025-02-14 08:32 | ECG_ITS ---
Test Date: 2025-02-14 08:38:[address] Rate: 90 P: 76 MN: 201 QRS: 51 QRSD: 95 T: 47 QT: 376 QTc: 461 Interpretive Statements SINUS RHYTHM LOW QRS VOLTAGE IN PRECORDIAL LEADS CANNOT R/O SEPTAL INFARCT, AGE INDETERMINATE BASELINE ARTIFACT- I, III, AVR, AVL, AVF, V1-V6 ABNORMAL ECG No previous ECG available for comparison Electronically Signed On 02-14-2025 09:06:09 CDT by Salvador Yusuf D.O.
--- OUTSIDE RECORDS SUMMARY | 2025-02-14 08:57 | XMS_ITS | Clinical Summary ---
Author Organization [facility] [address] [place] [id number] Care Team Providers Care Shop Hand Name Role Phone Unavailable Primary Care Provider Unavailabl e Allergies No known active allergies Medications acetaminophen (TYLENOL) 325 mg tablet Administer per tube 2 tablets (650 mg total) every 6 (six) hours as needed for pain Active metFORMIN (GLUCOPHAGE) 500 mg tablet Administer per tube 2 tablets (1,000 mg total) 2 (two) times a day with meals Active atorvastatin (LIPITOR) 80 mg tablet Administer per tube 1 tablet (80 mg total) daily Active clopidogreL (PLAVIX) 75 mg tablet Administer per tube 1 tablet (75 mg total) daily Active cholecalciferol 25 mcg (1,000 unit) tablet Administer per tube 1 tablet (1,000 Units total) daily Active finasteride (PROSCAR) 5 mg tablet Administer per tube 1 tablet (5 mg total) daily Active insulin aspart (NovoLOG) 100 unit/mL (3 [...] 2 tablets by mouth nightly 5 Active aspirin 325 mg tabletIndication s:cerebral ischemia,Cerebra l Ischemia Take 1 tablet (325 mg total) by mouth daily 5 09/17/19 Active midodrine (PROAMATINE) 5 mg tabletIndication s:Symptomatic Orthostatic Hypotension Take 1 tablet (5 mg total) by mouth daily Active insulin glargine (LANTUS, SEMGLEE) 100 unit/mL vial for injectionIndicat ions:Diabetes Mellitus Inject 13 Units under the skin nightly 5 09/16/19 Active Active Problems Problem Noted Date Diagnosed Date Acute ischemic left MCA stroke 09/11/2024 Pulmonary nodule 07/12/2024 Severe protein-calorie malnutrition 07/09/2024 Fall 07/08/2024 Hypotension 06/03/2024 Assessment & Plan (07/06/2024 11:09 AM MDS NURSE): Hypotension has resolved, patient has not required use of midodrine. Midodrine discontinued. Continue to monitor Assessment & Plan (06/28/2024 1:34 PM MDS NURSE): No further hypotensive episodes, patient denies dizziness with participation in therapy. Blood pressure was actually been higher. If this persists we will need to start an antihypertensive. Midodrine will remain on hold. Continue to monitor Assessment & Plan (06/23/2024 6:03 PM MDS NURSE): Blood pressure has significantly improved. Midodrine has not been dosed due to hold parameters. We will place midodrine on hold. Monitor blood pressure Assessment & Plan (06/22/2024 9:07 AM MDS NURSE): This is chronic but currently stable. We will continue midodrine 2.5 mg b.i.d.. Assessment & Plan (06/21/2024 6:18 PM MDS NURSE): As patient's strength improves, blood pressure has rebounded. We will decrease midodrine to 2.5 mg b.i.d. with hold parameters in place. Assessment & Plan (06/20/2024 7:28 AM MDS NURSE): This is chronic and currently stable. We will continue midodrine 10 mg b.i.d. Assessment & Plan (06/10/2024 2:44 PM MDS NURSE): He had a witnessed episode of syncope [...] pressure. Assessment & Plan (06/08/2024 11:56 AM MDS NURSE): Blood pressure has rebounded, we will place midodrine on hold Assessment & Plan (06/04/2024 10:30 PM MDS NURSE): Blood pressure so far well controlled, patient currently asymptomatic. Continue scheduled midodrine 10 mg t.i.d.. Patient has not displayed any hypertensive episodes. Hold parameters in place Assessment & Plan (06/03/2024 1:36 PM MDS NURSE): BP stable, mildly elevated. Is on Midodrine q8h to be held with MAP>80 per Neurology. History of stroke 06/03/2024 Assessment & Plan (07/06/2024 11:12 AM MDS NURSE): Remains weak but is slowly making improvements with strength and endurance. Continue aspirin, atorvastatin, Plavix, blood pressure management. Assessment & Plan (06/28/2024 1:36 PM MDS NURSE): No new neurologic changes, dysphagia persists although has improved. Modified barium swallow was postponed until tomorrow. Continue post stroke prophylaxis with aspirin, atorvastatin, Plavix, blood pressure management. Assessment & Plan (06/21/2024 6:20 PM MDS NURSE): Right-sided weakness and some dysphagia, slowly improving with therapy modalities. Pain is controlled. Continue post stroke prophylaxis with Plavix, aspirin, atorvastatin, blood pressure management Assessment & Plan (06/10/2024 2:58 PM MDS NURSE): This is chronic and stable. Please continue aspirin 81 mg, atorvastatin, Plavix. Assessment & Plan (06/08/2024 11:55 AM MDS NURSE): With persistent right-sided weakness. Patient is participating well in therapy and is slowly making progress with strength and endurance. Continue post stroke prophylaxis with aspirin, atorvastatin, Plavix, blood pressure control Assessment & Plan (06/06/2024 8:45 AM MDS NURSE): I endorse admission to alf care. The patient is at risk of [...] care. Assessment & Plan (06/03/2024 1:28 PM MDS NURSE): L MCA stroke with residual effects of dysphagia & R-sided weakness. Continue ASA, Statin, BP & DM control. PT/OT/ST to assess. 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 Last week was upgraded to pureed solids with nectar thickened liquids and has been attempting to advance with speech therapy. Has not required tube feed for nutrition, was started on ensure enlive with each meal Assessment & Plan (06/30/2024 11:34 PM MDS NURSE): Patient had modified barium swallow performed 06/29/2024 with the following recommendations: Puree solids and [place] thick liquids (initially with FIREBRICK AND REFRACTORY TILE REPAIRER advancing to PO diet per treating FIREBRICK AND REFRACTORY TILE REPAIRER recommendations) Medication Administration: per tube Compensatory Strategies/Modifications: Sit upright at 90' during all oral intake, Small bites, Small sips, and Dry swallow 2-3 time(s) between bites/sips Spoke with house FIREBRICK AND REFRACTORY TILE REPAIRER, is hopeful to advanced quickly as patient seemed to do very well with his swallow study. We will continue current tube feeds for now with Glucerna 1.2 calories 360 cc 5 times daily. Hopeful that patient's p.o. intake will improve quickly and we will be able to reassess nutritional status and need for further tube feed. Assessment & Plan (06/23/2024 6:08 PM MDS NURSE): Working with FIREBRICK AND REFRACTORY TILE REPAIRER - patient was making good progress, tolerating ice chips. FIREBRICK AND REFRACTORY TILE REPAIRER requesting to repeat modified barium swallow which will be performed in a.m.. Tolerating current tube feeds with Glucerna 1.2 heidi 360 cc 5 times per day followed by 30 cc water flushes Assessment & Plan (06/08/2024 11:54 AM MDS NURSE): Patient is now tolerating tube feeds well without nausea, abdominal pain, emesis. He is working hard with speech therapy, FIREBRICK AND REFRACTORY TILE REPAIRER reports that he has been tolerating all trials of liquids and pudding/applesauce. We will order repeat modified barium swallow per FIREBRICK AND REFRACTORY TILE REPAIRER request Assessment & Plan (06/04/2024 10:23 PM MDS NURSE): Adjustment in tube feeds have significantly reduced GI symptoms. Continue Glucerna 1.2 calorie boluses 360cc , 5 times per day followed by a 30 cc water flush after each feeding. Speech therapy will continue to follow, we will monitor for improved strength with swallow. Assessment & Plan (06/03/2024 1:35 PM MDS NURSE): PEG in place with bolus feeds. Not tolerating bolus feeds well currently per nursing. Have reduced water flush to 30ml after feeding, continue bolus feeding 5x/d but nursing can run over pump. Will monitor. FIREBRICK AND REFRACTORY TILE REPAIRER to follow. Urinary retention 06/03/2024 Assessment & Plan (07/06/2024 11:11 AM MDS NURSE): Resolved, continue finasteride Assessment & Plan (06/30/2024 11:34 PM MDS NURSE): Patient continues to void well, we will continue finasteride Assessment & Plan (06/23/2024 6:09 PM MDS NURSE): Patient has been voiding without difficulty using urinal. Continue finasteride 5 mg daily Assessment & Plan (06/03/2024 1:29 PM MDS NURSE): Noted in hospital. Etiology unknown. Likely s/t neurogenic. Will have staff bladder scan & monitor for need for ISC. PEG (percutaneous endoscopic gastrostomy) status 06/03/2024 Assessment & Plan (06/22/2024 9:07 AM MDS NURSE): We will continue tube feedings for nutrition. I appreciate the input from speech therapy and the dietitian. Smoker 01/06/2019 Type 2 diabetes mellitus 03/09/2017 Assessment & Plan (07/08/2024 5:31 PM MDS NURSE): Pending ER evaluation, continue insulin aspart, insulin glargine, metformin. Assessment & Plan (07/06/2024 11:09 AM MDS NURSE): A1c 7.6, Accu-Cheks well controlled with rare use sliding scale. Continue Lantus 30 units q.h.s., metformin 1000 mg b.i.d. Assessment & Plan (06/30/2024 11:29 PM MDS NURSE): Accu-Cheks ranging from 114-220 with a hemoglobin A1c of 7.6. Continue Lantus 30 units q.h.s., metformin 1000 mg b.i.d., sliding scale insulin with meals Assessment & Plan (06/28/2024 1:36 PM MDS NURSE): A1c 7.6, Accu-Cheks ranging from 111-209. Continue metformin 1000 mg b.i.d., Lantus 30 units q.h.s., sliding scale insulin with meals Assessment & Plan (06/22/2024 9:07 AM MDS NURSE): This is chronic but currently stable. We will continue to monitor point of care glucose and labs. We will continue aspirin, atorvastatin, insulin aspart, insulin glargine, and metformin. Assessment & Plan (06/21/2024 6:20 PM MDS NURSE): A1c 7.6, Accu-Cheks 144-223 continue Lantus 30 units q.h.s., metformin 1000 mg b.i.d., sliding scale insulin with meals Assessment & Plan (06/20/2024 7:28 AM MDS NURSE): This is chronic and stable. We will continue insulin aspart and insulin glargine. We will continue scripting of metformin. We will follow point of care glucose. Assessment & Plan (06/10/2024 2:58 PM MDS NURSE): This is chronic and stable. Please continue metformin Assessment & Plan (06/08/2024 11:53 AM MDS NURSE): A1c 7.6, Accu-Cheks ranging from 177 to 303. We will increase metformin to 1000 mg b.i.d., continue Lantus 30 units q.h.s. with sliding scale insulin t.i.d. a.c. Assessment & Plan (06/04/2024 10:28 PM MDS NURSE): A1c 7.6, blood sugars ranging from 140-310. Continue Lantus 30 units q.h.s., sliding scale insulin t.i.d., metformin 500 mg b.i.d.. If blood sugars remain elevated we will consider increasing metformin dose Assessment & Plan (06/03/2024 1:40 PM MDS NURSE): A1c ordered in am. Continue insulin + Metformin currently & Monitor BS. Hyperlipidemia 03/09/2017 Assessment & Plan (07/08/2024 5:34 PM MDS NURSE): Chronic, stable. Continue atorvastatin Assessment & Plan (06/20/2024 7:28 AM MDS NURSE): This is chronic and stable. We will continue atorvastatin 80 mg daily Assessment & Plan (06/10/2024 2:57 PM MDS NURSE): This is chronic and stable. Please continue atorvastatin Resolved Problems Problem Noted Date Diagnosed Date Resolved Date Syncope and collapse 07/08/2024 025 Assessment & Plan (07/08/2024 5:32 PM MDS NURSE): He experienced an unwitnessed fall. The therapist [...] emergency room for further investigation and care. Surgical History Surgery Date Site/Laterality Comments LAMINECTOMY 06/23/2016 - 06/22/2017 PORT PLACEMENT CHEST >5 YEARS 05/04/2024 N/A Medical History Medical History Date Comments Anxiety [...] uit: Not Asked; Counseling Given: Not Answered [facility] Utilities Answer Date Recorded In the past 12 months has [employer], oil, or water [employer] threatened to shut off services in your home? No 07/09/2024 Social Connection and Isolation Panel Answer Date Recorded In a typical week, how many times do you talk on the phone with family, friends, or neighbors? Three times a week 07/09/2024 How often do you get togethe r with friends or relatives? Three times a week 07/09/2024 How often do you attend chur or muslim services? Never 07/09/2024 Do you belong to any clubs o r organizations such as confucianist groups, unions, fraternal or athletic groups, or [...] care, and heating? Not very hard 07/09/2024 PHQ-2 Answer Date Recorded PHQ-2 Total Score (If total score is 3 or more points, staff should administer the PHQ-9) 0 09/13/2024 Hunger Vital Sign Answer Date Recorded Within [...] things needed for daily living? No 07/09/2024 PHQ-9 Answer Date Recorded PHQ-9 Total Score 0 09/11/2024 Housing Stability Vital Sign Answer Jose e Recorded In the last 12 months, was t here a time when you were not able to pay the mortgage or rent on time? No 07/09/2024 In the past 12 months, how m any times have you moved where you were living? 0 07/09/2024 At any time in the past 12 m [facility], were you homeless or living in a retirement (including now)? No 07/09/2024 Personal Safety Answer Date Recorded Have you ever been in or are you currently in a harmful physical or emotional relationship or is someone making you feel afraid or unsafe? 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 Not on file Not on file Not on libra e Obstetrics History Last Filed Vital Signs Vital Sign Reading Time Taken Comments Blood Pressure 156/96 09/15/2024 11:36 AM CDT Pulse 90 09/15/2024 11:36 AM CDT Temperature 36.6 C (97.9 F) 09/15/2024 11:36 AM CDT Respiratory Rate 18 09/15/2024 11:36 AM CDT Oxygen Saturation 97% 09/15/2024 11:36 AM CDT Inhaled Oxygen Concentration - - Weight 70.9 kg (156 lb 3.2 oz) 09/12/2024 2:00 A M CDT Height 180.3 cm (5' 11) 09/12/2024 2:00 AM CDT Body Mass Index 21.79 09/12/2024 2:00 AM CDT Plan of Treatment Health Maintenance Due Date Last Done Comments Albumin Creatinine Ratio, Urine 1965 Colon Cancer Screening-Colonoscopy 1965 Hepatitis C Screening 1963 Prostate Cancer Screening-PSA 1963 Dilated Eye Exam 1963 Foot Exam 1963 DTaP/Tdap/Td Vaccine (1 - Tdap) 09/28/1974 Hepatitis B Screening 09/28/1981 Regular Well Visit/Exam 18-64 09/28/1981 Pneumococcal vaccine <65 (2 of 2 - PPSV23, PCV20, or PCV21) 03/03/2019 01/06/2019 Covid-19 Vaccine (6 - 2023-2 5 season) 2024 04/24/2021, 10/15/2020, 09/22/2020, Additional history exists Influenza Vaccine (#1) 2025 , 06/01/2024, 08/02/2022, Additional history exists Hemoglobin A1C 03/14/2025 09/11/2024, 08/22, 06/04/2024, Additional history exists Depression Screening 09/11/2025 09/11/2024, 09/12/19 Lipid Panel 09/11/2025 09/11/2024, 08/22, 04/28/2024, Additional history exists eGFR 09/14/2025 09/14/2024, 08/22, 09/12/2024, Additional history exists Zoster Vaccine Completed 02/07/2024, 11/09/2023 Procedures Procedure Name Priority Date/Time Associated Diagnosis Comments EGFR Routine 09/14/2024 9:28 PM CDT HEMOGLOBIN A1C STAT 09/11/2024 4:47 AM CDT LIPID PANEL STAT 09/11/2024 4:47 AM CDT from Last 3 Months or Most Recently Relevant to Health Maintenance Results * eGFR (09/14/2024 9:28 PM CDT) eGFR >90 >=60 mL/min/1. 73 m2 Comment: [...] interpretive data was last reviewed 2021. Blood 09/14/2024 9:28 PM CDT 09/14/2024 10:34 PM CDT us Laurie Kwok MD LAB BLOOD ORDERABLES Fin al Result [facility] Department [place] [address] * (ABNORMAL) Hemoglobin A1c (09/11/2024 4:47 AM CDT) Hgb A1C 8.9(H) 4.0 - 5.6 % Estimated Average Glucose 209 mg/dL [facility] Comment: The ADA recommends reporting an estimated Average Glucose (eAG) with all Hemoglobin A1c results using the equation derived from a study of 507 normal and diabetic adults. Minority populations were underrepresented and children were not included. (Diabetes Care 2020; 43(S1): S66-S76). The eAG is not equivalent to a fasting glucose. Blood 09/11/2024 4:47 AM CDT 09/11/2024 4:57 AM CDT us Theo Mckenna MD LAB BLOOD ORDERABLES Final Result [facility] Department [place] [address] * Lipid panel (09/11/2024 4:47 AM CDT) Cholesterol 127 30 - 199 mg/dL Comment: Interpretive Data Ages < or = 19 years Acceptable: <170 mg/dL Borderline high: 170-199 mg/dL High: >or= 200 mg/dL Ages > or = 20 years Desirable: <200 mg/dL Borderline high: 200-239 mg/dL High: >or= 240 mg/dL Literature References: 1. Expert Panel on Integrated Guidelines for Cardiovascular Health and Risk Reduction in Children and Adolescents. Pediatrics 2011;128:S213 2. NCEP Expert Panel. Circulation 2004;110:227 Current Interpretive Data was last revised on 2018. Triglycerides 120 <=149 mg/dL [facility] Comment: Interpretive Data Ages < or = 9 years Acceptable: <75 mg/dL Borderline high: 75-99 mg/dL High: >or= 100 mg/dL Ages 10 to 20 years Acceptable: <90 mg/dL Borderline high: 90-129 mg/dL High: >or= 130 mg/dL Ages > or = 20 years Desirable: <150 mg/dL Borderline high: 150-199 mg/dL High: 200-499 mg/dL Very high: >or= 499 mg/dL Literature References: 1. Expert Panel on Integrated Guidelines for Cardiovascular Health and Risk Reduction in Children and Adolescents. Pediatrics 2011;128:S213 2. NCEP Expert Panel. Circulation 2004;110:227 Current Interpretive Data was last revised on 2018. HDL 47 >=40 mg/dL [facility] Comment: Interpretive Data Ages < or = 19 years Acceptable: >45 mg/dL Borderline low: 40-45 mg/dL Low: <40 mg/dL Ages > or = 20 years Desirable: >or= 60 mg/dL Low: <40 mg/dL Literature References: 1. Expert Panel on Integrated Guidelines for Cardiovascular Health and Risk Reduction in Children and Adolescents. Pediatrics 2011;128:S213 2. NCEP Expert Panel. Circulation 2004;110:227 Current Interpretive Data was last revised on 2018. LDL, calculated 58 <=129 mg/dL [facility] Comment: Interpretive Data Ages < or = 19 years Acceptable: <110 mg/dL Borderline high: 110-129 mg/dL High: >or= 130 mg/dL Ages > or = 20 years Optimal: <100 mg/dL Near optimal: 100-129 mg/dL Borderline high: 130-159 mg/dL High: >160 mg/dL Calculated using the Jone LDL-C estimating equation. This equation was implemented on 2024. Prior to this date LDL-C was estimated using the Friedewald equation. Literature References: 1. Expert Panel on Integrated Guidelines for Cardiovascular Health and Risk Reduction in Children and Adolescents. Pediatrics 2011;128:S213 2. NCEP Expert Panel. Circulation 2004;110:227 3. Jone Causey et al. WOO Cardiol. 2019October 21;5(5):540-548. doi: 10.1001/jamacardio.2020.0013 Current Interpretive Data was last revised on 2024. Non-HDL Cholesterol 80 mg/dL [facility] Comment: Interpretive Data Ages < or = 19 years Acceptable: <120 mg/dL Borderline high: 120-144 mg/dL High: >145 mg/dL Ages > or = 20 years When triglycerides are >200 mg/dL, Non-HDL cholesterol is a secondary target of therapy with treatment goals that are 30 mg/dL greater than the LDL cholesterol target. Literature References: 1. Expert Panel on Integrated Guidelines for Cardiovascular Health and Risk Reduction in Children and Adolescents. Pediatrics 2011;128:S213 2. NCEP Expert Panel. Circulation 2004;110:227 Current Interpretive Data was last revised on 2018. Chol/HDL ratio 3 [facility] Blood 09/11/2024 4:47 AM CDT 09/11/2024 4:52 AM CDT us Theo Mckenna MD LAB BLOOD ORDERABLES Final Result [facility] Department [place] [address] from Last 3 Months or Most Recently Relevant to Health Maintenance Insurance [employer] Advance Directives For more information, please contact: [phone] Documents on File Type Date Recorded Patient Circuit Board Assembler Expl anation ADVANCE DIRECTIVE 09/20/2024 7:24 PM POLST ADVANCE DIRECTIVE 09/20/2024 7:24 PM POWER OF AIR POLLUTION CONTROL ENGINEER-MEDICAL ADVANCE DIRECTIVE 09/12/2024 2:06 PM YUE R OF AIR POLLUTION CONTROL ENGINEER-MEDICAL ADVANCE DIRECTIVE 07/14/2024 11:20 AM POLS T - Phys Order for PT Preferences * Full Code (Latest Code Status on File) Date Activated Date Inactivated Comments 09/11/2024 5:58 AM 09/15/2024 8:06 PM * Full Code Date Activated Date Inactivated Comments 07/08/2024 8:07 PM 07/13/2024 6:31 PM
--- OUTSIDE RECORDS SUMMARY | 2025-02-14 08:57 | XMS_ITS | Clinical Summary ---
Author Organization [employer] [facility] Address [address] [place] [address] Care Team Providers Care Tankroom Tender Name Role Phone Clifton Garcia MD [...] on file Legal Sex Male 5:32 AM GENERAL MANAGER FOOD Gender Identity Not on file Sexual Orientation [...] P M CDT Height 180.3 cm (5' 11) 11/15/2018 8:42 PM CDT Body Mass Index [...] 6 MONTHS 10/30/20242023, 04/28/2024, 11/15/2018 INFLUENZA VACCINE (#1) 2025 06/01/2024 Procedures Procedure Name Priority Date/Time Associated Diagnosis Comments HEMOGLOBIN A1C Routine 11/15/2018 4:43 PM CDT from Last 3 Months or Most Recently Relevant to Health Maintenance Results * (ABNORMAL) HEMOGLOBIN A1C (11/15/2018 4:43 PM CDT) HEMOGLOBIN A1C 10.6(H) See comment % 11/15/2018 9:12 PM CDT [facility] EST. AVG GLUCOSE, A1C 258 mg/dL 11/15/2018 9:12 PM CDT [facility] Blood Venipuncture / Unknown 11/15/2018 4:43 PM CDT 11/15/2018 4:49 PM CDT Narrative [facility] - 11/15/2018 9:12 PM CDT HGB A1C INTERPRETATION NORMAL: <5.7% PRE-DIABETES: 5.7 - 6.4% DIABETES: 6.5% OR GREATER us Zee Isaacs NP CHEMISTRY ORDERABLES Final Re sult [facility] CLIA# [id number] [place] [address] from Last 3 Months or Most Recently Relevant to Health Maintenance Insurance [facility] [employer] PPO [id number] [facility] [employer] PPO [id number] Advance Directives For more information, please contact: [phone] * Full Code (Latest Code Status on File) Date Activated Date Inactivated Comments 11/15/2018 8:45 PM 11/16/2018 3:20 PM * Full Code Date Activated Date Inactivated Comments 10/24/2009 7:24 AM 10/25/2009 2:32 AM Care Teams Tankroom Tender Relationship Specialty [place] [address] [place] [address] PCP - General 04/25/09
--- OUTSIDE RECORDS SUMMARY | 2025-02-14 08:58 | XMS_ITS | Encounter Summary ---
Author Organization [employer] Address 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 Gender Identity Not on file Sexual Orientation Not on file documented as of this encounter Plan of Treatment Not on file documented as of this encounter Procedures Procedure Name Priority Date/Time Associated Diagnosis Comments CT CHEST W CONTRAST Routine 07/25/2008 8 :[address] SOFT TISSUE NECK W CONTRAST Routine 07/25/2008 8:35 AM TUNNEL INSPECTOR documented in this encounter Results * CT CHEST W CONTRAST (07/25/2008 8:35 AM TUNNEL INSPECTOR) Anatomical Region Laterality Modality Chest Other 07/25/2008 8:35 AM TUNNEL INSPECTOR Narrative 07/25/2008 6:40 PM TUNNEL INSPECTOR [facility] [address] [place], [place] [address] Admit Date: 07/25/2008 FRANCK LOUISE Sex: M Admit Prov: EVER RECIO Date: 1965 Primary Care Prov: CMRN: [id number] Room: [facility] SSN: [id number] IMAGING SERVICES Ordering Prov: N/A Accession Number: [id number] Interpretation CT OF THE CHEST WITH INTRAVENOUS [...] Procedure Note Roseline Diego MD - 07/25/[address] [address] Admit Date: 07/25/2008 FRANCK LOUISE Sex: M Admit Prov: EVER RECIO Date: 1965 Primary Care Prov: CMRN: [id number] Room: [facility] SSN: [id number] IMAGING SERVICES Ordering Prov: N/A Interpretation CT [...] TISSUE NECK W CONTRAST (07/25/2008 8:35 AM TUNNEL INSPECTOR) Anatomical Region Laterality Modality Neck Other 07/25/2008 8:35 AM TUNNEL INSPECTOR Narrative 07/25/2008 2:42 PM TUNNEL INSPECTOR [facility] [place] [address] [place], [place] [address] Admit Date: 07/25/2008 FRANCK LOUISE Sex: M Admit Prov: EVER RECIO Date: 1965 Primary Care Prov: CMRN: [id number] Room: [facility] SSN: [id number] IMAGING SERVICES Ordering Prov: N/A Accession Number: [id number] Interpretation SOFT TISSUE NECK CT WITH IV [...] 11:45 Procedure Note Lindsey Jamil - 07/25/2008 [facility] [address] [place], [place] [address] Admit Date: 07/25/2008 FRANCK LOUISE Sex: M Admit Prov: HEMALSCOTTYSISI ADRIANNE Date: 1965 Primary Care Prov: CMRN: [id number] Room: [facility] SSN: [id number] IMAGING SERVICES Ordering Prov: N/A Interpretation SOFT [...] neck documented in this encounter Care Teams Casting Repairer Relationship Specialty [place] [address] [place] [address] PCP - General 04/25/09 documented as of this encounter
--- OUTSIDE RECORDS SUMMARY | 2025-02-14 08:58 | XMS_ITS | Encounter Summary ---
Author Organization [employer] Address [address] [place] [address] Care Team Providers Care Copy Cutter Name Role Phone Clifton Garcia MD Primary Care Provider [phone] Encounter Details Date Type Department Care Team (Latest Contact Info) Description 09/28/2008 Outpatient Historical [facility] David Seymour MD [address] [place] [address] [address] [place] [address] Malignant Neoplasm of Oropharynx, Unspecified Site (CMS/HCC) Social History Tobacco Use Types Packs/Day Years Used Date Smoking Tobacco: Never Assessed Sex and Gender Information Value Date Recorded Sex Assigned at Not on file 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
--- OUTSIDE RECORDS SUMMARY | 2025-02-14 08:58 | XMS_ITS | Encounter Summary ---
Author Organization [employer] Address [address] [place] [address] Care Team Providers Care Paint Roller Winder Name Role Phone Clifton Garcia MD Primary Care Provider [phone] Encounter Details Date Type Department Care Team (Latest Contact Info) Description 01/09/2008 Outpatient Historical [facility] David Seymour MD [facility] [address] [place] [address] Hilario Howard MD [address] [facility]. 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
--- OUTSIDE RECORDS SUMMARY | 2025-02-14 08:58 | XMS_ITS | Encounter Summary ---
Author Organization [employer] Address 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
--- OUTSIDE RECORDS SUMMARY | 2025-02-14 08:58 | XMS_ITS | Encounter Summary ---
Author Organization [employer] Address [address] [place] [address] Care Team Providers Care Grinder Set Up Operator Name Role Phone Clifton Garcia MD Primary Care Provider [phone] Encounter Details Date Type Department Care Team (Latest Contact Info) Description 10/05/2007 Outpatient Historical [facility] David Seymour MD [facility] [address] [place] [address] Hilario Howard MD [address] [facility] [facility] [address] [place] [address] Malignant Neoplasm of Head, Face, and Neck (CMS/HCC) Social History Tobacco Use Types Packs/Day Years Used Date Smoking Tobacco: Never Assessed Sex and Gender Information Value Date Recorded Sex Assigned at Not on file Legal Sex Male 5:32 AM INSULATION BOARD HEAD SAW OPERATOR Gender Identity Not on file Sexual Orientation Not on file documented as of this encounter Plan of Treatment Not on file documented as of this encounter Visit Diagnoses Diagnosis Malignant neoplasm of head, face, and neck (CMS/HCC) Malignant neoplasm of head, face, and neck documented in this encounter Care Teams Grinder Set Up Operator Relationship Specialty [place] [address] [facility] [address] [place], [place] [id number] PCP - General 11/3/09 documented as of this encounter
--- OUTSIDE RECORDS SUMMARY | 2025-02-14 08:58 | XMS_ITS | Encounter Summary ---
Author Organization [employer] Address [address] [place] [address] Care Team Providers Care Information Assurance Engineer Name Role Phone Clifton Garcia MD Primary Care Provider [phone] Encounter Details Date Type Department Care Team (Latest Contact Info) Description 12/08/2007 Outpatient Historical [facility] David Seymour MD [facility] [address] [place] [address] Hilario Howard MD [address] [facility]. 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
--- OUTSIDE RECORDS SUMMARY | 2025-02-14 08:58 | XMS_ITS | Encounter Summary ---
Author Organization [facility] [employer] Address [address] [place] [address] Care Team Providers Care Woolen Mill Utility Worker Name Role Phone Franck Garcia MD Primary Care Provider [phone] Encounter Details Date Type Department Care Team (Latest Contact Info) Description 10/07/2007 Outpatient Historical [facility] Stephania Howard MD [address] [facility] [address] [place] [address] Malignant Neoplasm of Head, Face, and Neck (CMS/HCC) Social History Tobacco Use Types Packs/Day Years Used Date Smoking Tobacco: Never Assessed Sex and Gender Information Value Date Recorded Sex Assigned at Not on file Legal Sex Male 5:32 AM BELL TIER Gender Identity Not on file Sexual [...] AM CDT Narrative 10/07/2007 10:55 AM CDT [place] [address], [place] [address] Admit Date: 10/07/2007 FRANCK LOUISE Sex: M Admit Prov: STEPHANIA HOWARD Date: 1965 Primary Care Prov: CMRN: [id number] Room: [facility] SSN: [id number] IMAGING SERVICES Ordering Prov: N/A Accession Number: [id number] Interpretation WHOLE BODY PET/CT HISTORY: 42 year [...] 10:55 Procedure Note Kole Gonzalez - 10/07/[address] [address] Admit Date: 10/07/2007 FRANCK LOUISE Sex: M Admit Prov: STEPHANIA HOWARD Date: 1965 Primary Care Prov: CMRN: [id number] Room: [facility] SSN: [id number] IMAGING SERVICES Ordering Prov: N/A Interpretation WHOLE [...] neck documented in this encounter Care Teams Woolen Mill Utility Worker Relationship Specialty [place] [address] [place] [id number] PCP - General 04/25/09 documented as of this encounter
--- OUTSIDE RECORDS SUMMARY | 2025-02-14 08:58 | XMS_ITS | Encounter Summary ---
Author Organization [employer] Address [address] [place] [address] Care Team Providers Care Sales Agent Protective Service Name Role Phone Clifton Garcia MD Primary Care Provider [phone] Encounter Details Date Type Department Care Team (Latest Contact Info) Description 09/03/2007 Outpatient Historical [facility] David Seymour MD [facility] [address] [place] [address] Hilario Howard MD [address] [facility] [facility] [[email or web address] [address] [place] [address] Malignant Neoplasm of Head, Face, and Neck (CMS/HCC) Social History Tobacco Use Types Packs/Day Years Used Date Smoking Tobacco: Never Assessed Sex and Gender Information Value Date Recorded Sex Assigned at Not on file Legal Sex Male 5:32 AM SENIOR CENTER DIRECTOR Gender Identity Not on file Sexual Orientation Not on file documented as of this encounter Plan of Treatment Not on file documented as of this encounter Visit Diagnoses Diagnosis Malignant neoplasm of head, face, and neck (CMS/HCC) Malignant neoplasm of head, face, and neck documented in this encounter Care Teams Sales Agent Protective Service Relationship Specialty [place] [address] [facility] [address] [place], [place] [phone] PCP - General 11/3/09 documented as of this encounter
--- OUTSIDE RECORDS SUMMARY | 2025-02-14 08:58 | XMS_ITS | Encounter Summary ---
Author Organization [employer] Address 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
--- OUTSIDE RECORDS SUMMARY | 2025-02-14 08:58 | XMS_ITS | Encounter Summary ---
Author Organization [employer] Address [address] [place] [address] Care Team Providers Care Reactor Kettle Operator Name Role Phone Clifton Garcia MD Primary Care Provider [phone] Encounter Details Date Type Department Care Team (Latest Contact Info) Description 10/07/2007 Outpatient Historical [facility] Hilario Howard MD [address] [facility]. 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
--- OUTSIDE RECORDS SUMMARY | 2025-02-14 08:58 | XMS_ITS | Encounter Summary ---
Author Organization [employer] Address 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 PERSON Gender Identity Not on file Sexual Orientation [...] CDT) CREATININE 1.05 0.67 - 1.17 mg/dL [facility] ALT 25 0 - 41 U/L [facility] SODIUM 136 135 - 145 mmol/L [facility] ALKALINE PHOSPHATASE 69 40 - 129 U/L [facility] CO2 26 22 - 30 mmol/L [facility] BILIRUBIN TOTAL 0.3 0.2 - 1.0 mg/dL [facility] POTASSIUM 4.0 3.5 - 4.9 mmol/L [facility] TOTAL PROTEIN 7.4 6.3 - 8.6 g/dL [facility] GLUCOSE 134(H) 65 - 99 mg/dL [facility] AST 21 12 - 38 U/L [facility] BUN 17 6 - 20 mg/dL [facility] CALCIUM 9.7 8.6 - 10.2 mg/dL [facility] ALBUMIN 4.5 3.4 - 4.8 g/dL [facility] CHLORIDE 98 96 - 108 mmol/L [facility] GFR, >60 >=60 mL/min/1. 7 sq meter [facility] GFR >60 >=60 mL/min/1. 7 sq meter [facility] Comment: Modification of Diet in Renal Disease (MDRD) study formula. Estimated GFR rate interpretative information for both Americans and non- Americans is available on the [facility] Intranet at: [email or web address] Select: Lab Policies and Procedures Select: Reference Ranges - GFR Blood specimen (specimen) 10/28/2008 10:01 AM CDT 10/28/2008 10:01 AM CDT us Hsiaoou Hu CHEMISTRY ORDERABLES Edited INTERFACE SYSTEM Refer to clinic/hospital department [facility] CLIA# [id number] [address] [place], [place] [address] * (ABNORMAL) CBC WITH DIFFERENTIAL (10/28/2008 10:01 AM CDT) HEMOGLOBIN 14.6 13.6 - 16.5 g/dL [facility] RDW 13.5 11.5 - 14.5 % [facility] WBC 7.7 4.0 - 9.8 K/uL [facility] MCH 32.1 27.2 - 32.6 pg [facility] MPV 10.5 9.3 - 12.4 fL [facility] HEMATOCRIT 41.3 40.0 - 48.0 % [facility] RDW-STDEV 44.9 37.1 - 48.7 fL [facility] RBC 4.55 4.50 - 5.40 M/uL [facility] MCHC 35.4 31.5 - 35.5 % [facility] MCV 90.8 82.0 - 99.0 fL [facility] PLATELETS 209 140 - 350 K/uL [facility] EOSINOPHILS 3 0 - 7 % [facility] EOSINOPHIL ABSOLUTE 0.24 0.00 - 0.70 K/uL [facility] LYMPHOCYTES 15(L) 16 - 45 % [facility] LYMPHOCYTE ABSOLUTE 1.14 0.70 - 4.50 K/uL [facility] BASOPHILS 1 0 - 2 % [facility] BASOPHILS ABSOLUTE 0.04 0.00 - 0.20 K/uL [facility] MONOCYTES 10 3 - 13 % [facility] MONOCYTE ABSOLUTE 0.74 0.10 - 1.30 K/uL [facility] NEUTROPHILS 72(H) 45 - 70 % [facility] NEUTROPHIL ABSOLUTE 5.56 1.90 - 7.00 K/uL [facility] Blood specimen (specimen) 10/28/2008 10:01 AM CDT 10/28/2008 10:01 AM CDT Hsiaoou Hu HEMATOLOGY ORDERABLES Edited INTERFACE SYSTEM Refer to clinic/hospital department [facility] CLIA# [id number] [address] [place] [address] documented in this encounter Visit Diagnoses Diagnosis Malignant neoplasm of head, face, and neck (CMS/HCC) Malignant neoplasm of head, face, and neck documented in this encounter Care Teams Meat Supervisor Relationship Specialty [place] [address] [place] [address] PCP - General 04/25/09 documented as of this encounter
--- OUTSIDE RECORDS SUMMARY | 2025-02-14 08:58 | XMS_ITS | Encounter Summary ---
Author Organization [facility] Address [address] [place] [address] Care Team Providers Care Byproducts Supervisor Name Role Phone Franck Garcia MD Primary Care Provider [phone] Encounter Details Date Type Department Care Team (Late st Contact Info) Description 08/10/2008 Outpatient Historical [facility] Stephania Howard MD [address] [place] [address] Sebaceous Cyst Social History Tobacco Use Types Packs/Day Years Used Date Smoking Tobacco: Never Assessed Sex and Gender Information Value Date Recorded Sex Assigned at Not on file Legal Sex Male 5:32 AM RN HEDIS Gender Identity Not on file Sexual Orientation Not on file documented as of this encounter Plan of Treatment Not on file documented as of this encounter Procedures Procedure Name Priority Date/Time Associated Diagnosis Comments PATHOLOGY Routine 08/17/2008 11:18 AM RN HEDIS CBC WITH DIFFERENTIAL Stat 08/17/2008 9:15 AM RN HEDIS BASIC METABOLIC PANEL Stat 08/17/2008 9:15 AM RN HEDIS documented in this encounter Results * PATHOLOGY (08/17/2008 11:18 AM RN HEDIS) FINAL REPORT [facility] [address] [place], [place] [address] Patient: FRANCK LOUISE : 1965 Procedure Date: 08/17/2008 Accession Date: 08/17/2008 Case No: [id number] Ordering Dr: STEPHANIA HOWARD Case types AW, BW, FW, NW and SH are performed by [facility], [place], [place] SURGICAL PATHOLOGY & NON-GYNECOLOGIC CYTOPATHOLOGY REPORT [...] is submitted in cassettes A1 and A2. [facility] 08.17.2008 10:52 pm Microscopic: The slides are labeled [id number]. Sections demonstrate a ruptured epidermal cyst. There is a marked foreign-body granulomatous inflammatory response to the extruded keratin contents. The features are benign. [facility] 08.18.2008 02:06 pm Staging Form: No ELECTRONIC SIGNATURE FOR TAD MATA M.D.- 08/18/08 04:02 pm INTERFACE SYSTEM 08/17/2008 11:1 8 AM RN HEDIS Stephania Howard MD PATHOLOGY/CYTOLOGY ORDERABLES Fi nal Result Performing Organization Address City/[facility] Co de Phone Number INTERFACE SYSTEM Refer to clinic/hospital department * CBC WITH DIFFERENTIAL (08/17/2008 9:15 AM RN HEDIS) Blood specimen (specimen) 08/17/2008 9:15 AM RN HEDIS 08/17/2008 9:27 AM RN HEDIS Stephania Howard MD HEMATOLOGY ORDERABLES Edited Performing Organization Address [facility] Co de Phone Number INTERFACE SYSTEM Refer to clinic/hospital department * (ABNORMAL) BASIC METABOLIC PANEL (08/17/2008 9:15 AM RN HEDIS) CREATININE 0.91 0.67 - 1.17 mg/dL [facility] POTASSIUM 4.2 3.5 - 4.9 mmol/L [facility] BUN 13 6 - 20 mg/dL [facility] CHLORIDE 101 96 - 108 mmol/L [facility] GLUCOSE 107(H) 65 - 99 mg/dL [facility] SODIUM 138 135 - 145 mmol/L [facility] GFR, >60 >=60 mL/min/1. 7 sq meter [facility] CALCIUM 9.2 8.6 - 10.2 mg/dL [facility] CO2 31(H) 22 - 30 mmol/L [facility] GFR >60 >=60 mL/min/1. 7 sq meter [facility] Comment: Modification of Diet in Renal Disease (MDRD) study formula. Estimated GFR rate interpretative information for both Americans and non- Americans is available on the [facility] Intranet at: [email or web address] Select: Lab Policies and Procedures Select: Reference Ranges - GFR Blood specimen (specimen) 08/17/2008 9:15 AM RN HEDIS 08/17/2008 9:27 AM RN HEDIS Narrative INTERFACE SYSTEM - 08/17/2008 10:03 AM RN HEDIS 26 Stephania Howard MD CHEMISTRY ORDERABLES Edited INTERFACE SYSTEM Refer to clinic/hospital department [facility] CLIA# [id number] [address] [place] [address] documented in this encounter Visit Diagnoses Diagnosis Sebaceous cyst documented in this encounter Care Teams Byproducts Supervisor Relationship Specialty [place] [address] [place] [address] PCP - General 04/25/09 documented as of this encounter
--- OUTSIDE RECORDS SUMMARY | 2025-02-14 08:58 | XMS_ITS | Encounter Summary ---
Author Organization [employer] Address 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 CLIA# [id number] [address] [facility] [address] [place], [place] [address] * (ABNORMAL) CBC WITH DIFFERENTIAL (11/22/2007 5:50 [...] MEDICAL CENTER LAB METAMYELOCYTE 1(H) <=0 % [facility] BANDS 12(H) 0 - 5 % [facility] POIKILOCYTES Slight [facility] BASOPHILS ABSOLUTE 0.05 0.00 - 0.20 K/uL [facility] EOSINOPHILS 1 0 - 7 % [facility] REVIEWED ON SMEAR Plt OK by Smear Rev. [facility] PLATELET EST. Consistent w/ count Normal [facility] MONOCYTE ABSOLUTE 0.14 0.10 - 1.30 K/uL [facility] LYMPHOCYTES 17 16 - 45 % [facility] POLYCHROMASIA Slight [facility] MYELOCYTES 1(H) <=0 % [facility] NEUTROPHIL ABSOLUTE 1.61(L) 1.90 - 7.00 K/uL [facility] NEUTROPHILS, SEG 58 45 - 70 % [facility] ANISOCYTOSIS Slight [facility] BASOPHILS 2 0 - 2 % [facility] EOSINOPHIL ABSOLUTE 0.02 0.00 - 0.70 K/uL [facility] ATYPICAL LYMPHOCYTE 2 0 - 5 % [facility] MONOCYTES 6 3 - 13 % [facility] TOXIC GRANULATION Slight [facility] LYMPHOCYTE ABSOLUTE 0.44(L) 0.70 - 4.50 K/uL [facility] Blood specimen (specimen) 11/22/2007 5:50 AM CDT 11/22/2007 6:56 AM CDT Stuart Osborne MD HEMATOLOGY ORDERABLES Edited [facility] CLIA# [id number] [address] [place] [address] * XR CHEST PA AND LATERAL (11/21/2007 10:56 AM CDT) Anatomical Region Laterality Modality Chest Other 11/21/2007 10:5 6 AM CDT Narrative 11/21/2007 11:49 AM CDT [facility] [address] [place], [place] [address] Admit Date: 11/16/2007 FRANCK LOUISE Sex: M Admit Prov: YE CORNELIUS Date: 1965 Primary Care Prov: CMRN: [id number] Room: [address] [place] [address] SSN: [id number] IMAGING SERVICES Ordering Prov: N/A Accession Number: [id number] Interpretation CHEST 2 VIEWS, 11/21/2007 Comparison: 11/16/2007 [...] SJ Procedure Note Lindsey Jamil - 11/21/2007 [facility] [address] [place], [place] [address] Admit Date: 11/16/2007 KIERADEMETRIFRANCK Sex: M Admit Prov: YE CORNELIUS Date: 1965 Primary Care Prov: CMRN: [id number] Room: [address] [place] [address] SSN: [id number] IMAGING SERVICES Ordering Prov: N/A Interpretation CHEST [...] Result [facility] CLIA# [id number] [address] [place], [place] [address] * (ABNORMAL) CBC WITH DIFFERENTIAL (11/21/2007 3:45 [...] MEDICAL CENTER LAB METAMYELOCYTE 1(H) <=0 % [facility] BANDS 18(H) 0 - 5 % [facility] REVIEWED ON SMEAR Plt OK by Smear Rev. [facility] POIKILOCYTES Slight [facility] BASOPHILS ABSOLUTE 0.04 0.00 - 0.20 K/uL [facility] EOSINOPHILS 3 0 - 7 % [facility] TOXIC GRANULATION Slight [facility] PLATELET EST. Consistent w/ count Normal [facility] MONOCYTE ABSOLUTE 0.20 0.10 - 1.30 K/uL [facility] LYMPHOCYTES 15(L) 16 - 45 % [facility] POLYCHROMASIA Slight [facility] MYELOCYTES 1(H) <=0 % [facility] NEUTROPHIL ABSOLUTE 1.19(L) 1.90 - 7.00 K/uL [facility] NEUTROPHILS, SEG 48 45 - 70 % [facility] ANISOCYTOSIS Slight [facility] BASOPHILS 2 0 - 2 % [facility] DOHLE BODIES Present [facility] EOSINOPHIL ABSOLUTE 0.05 0.00 - 0.70 K/uL [facility] ATYPICAL LYMPHOCYTE 1 0 - 5 % [facility] MONOCYTES 11 3 - 13 % [facility] Blood specimen (specimen) 11/21/2007 3:45 AM CDT 11/21/2007 4:06 AM CDT Hsiaoou Hu HEMATOLOGY ORDERABLES Edited [facility] CLIA# [id number] [address] [place] [address] * (ABNORMAL) C-PEPTIDE (11/21/2007 3:45 AM CDT) C-PEPTIDE 5.0(H) 0.8 - 3.1 ng/mL [facility] Comment: Lab test performed by: [employer] [address] [address] [place] [address] ERIK STUART MD Blood specimen (specimen) 11/21/2007 3:45 AM CDT 11/21/2007 4:06 AM CDT Stuart Osborne MD CHEMISTRY ORDERABLES Final Resu lt Performing Organization Address [facility] Co de Phone Number [facility] CLIA# [id number] [address] [place] [address] * BLOOD CULTURE (11/21/2007 3:45 AM CDT) [...] ORDERABL ES Final Result Performing Organization Address [facility] Co de Phone Number [facility] CLIA# [id number] [address] [facility] [place] [address] * URINALYSIS (11/20/2007 11:00 PM CDT) COLOR UA Pale Yellow [facility] NITRITE UA Negative Negative [facility] UROBILINOGEN UA <1 <=1 mg/dL [facility] PH UA 7.0 5.0 - 8.0 [facility] KETONES UA Negative Negative [facility] CLARITY UA Clear Clear [facility] BILIRUBIN UA Negative Negative [facility] PROTEIN UA Negative Negative [facility] LEUKOCYTE ESTERASE UA Negative Negative [facility] SPECIFIC GRAVITY UA 1.004 1.001 - 1.035 [facility] GLUCOSE UA Negative Negative [facility] BLOOD UA Negative Negative [facility] WBC UA 1 0 - 3 /HPF [facility] RBC UA 1 0 - 3 /HPF [facility] 11/20/2007 11:0 0 PM CDT 11/21/2007 1:43 AM CDT Stuart Osborne MD URINE ORDERABLES Edited Performing Organization Address [facility] Co de Phone Number [facility] CLIA# [id number] [address] [place] [address] * URINALYSIS WITH REFLEX CULTURE (11/20/2007 11:00 PM CDT) Pathologist [facility] URINE CULTURE ORDER Not indicated [facility] [...] URINE ORDERABLES Final Result Performing Organization Address [facility] Co de Phone Number [facility] CLIA# [id number] [address] [place] [address] * (ABNORMAL) COMPREHENSIVE METABOLIC PANEL (11/20/2007 4:58 [...] and non- Americans is available on the [facility] Intranet at: [email or web address] Select: Lab Policies and Procedures Select: Reference Ranges - GFR Blood specimen (specimen) 11/20/2007 4:58 AM CDT 11/20/2007 5:41 AM CDT Hsiaoou Hu CHEMISTRY ORDERABLES Edited [facility] CLIA# [id number] [address] [place] [address] * (ABNORMAL) CBC WITH DIFFERENTIAL (11/20/2007 4:58 [...] LAB LYMPHOCYTES 10(L) 16 - 45 % [facility] RBC MORPHOLOGY Normal Normal [facility] [...] LAB EOSINOPHILS 2 0 - 7 % [facility] Blood specimen (specimen) 11/20/2007 4:58 AM CDT 11/20/2007 5:41 AM CDT [facility] HEMATOLOGY ORDERABLES Edited Performing Organization Address City/[facility]/ZIP Co de Phone Number [facility] CLIA# [id number] [address] [place], [place] [address] * BLOOD BANK DRAW ONLY (11/18/2007 1:33 PM CDT) Blood specimen (specimen) 11/18/2007 1:33 PM CDT 11/18/2007 1:33 PM CDT [facility] BLOOD BANK ORDERABLES Final Resu lt Performing Organization Address City/[facility]/ZIP Co de Phone Number INTERFACE SYSTEM Refer [...] [facility] ANISOCYTOSIS Slight [facility] LYMPHOCYTES 12(L) 16 - 45 % [facility] NEUTROPHIL ABSOLUTE 2.18 1.90 - 7.00 [...] LAB EOSINOPHILS 0 0 - 7 % [facility] Blood specimen (specimen) 11/18/2007 11:55 AM CDT 11/18/2007 12:00 PM CDT us Chencho Pete MD HEMATOLOGY ORDERABLES Edite d [facility] CLIA# [id number] [address] [place] [address] * (ABNORMAL) COMPREHENSIVE METABOLIC PANEL (11/18/2007 8:17 [...] and non- Americans is available on the [facility] Intranet at: [email or web address] Select: Lab Policies and Procedures Select: Reference Ranges - GFR Blood specimen (specimen) 11/18/2007 8:17 AM CDT 11/18/2007 8:58 AM CDT Hsiaoou Hu CHEMISTRY ORDERABLES Edited [facility] CLIA# [id number] [address] [place] [address] * (ABNORMAL) CBC WITH DIFFERENTIAL (11/18/2007 8:17 [...] LAB NEUTROPHILS 83(H) 45 - 70 % [facility] NEUTROPHIL ABSOLUTE 2.41 1.90 - 7.00 K/uL [facility] EOSINOPHILS 1 0 - 7 % [facility] EOSINOPHIL ABSOLUTE 0.02 0.00 - 0.70 K/uL [facility] LYMPHOCYTES 11(L) 16 - 45 % [facility] LYMPHOCYTE ABSOLUTE 0.32(L) 0.70 - 4.50 [...] 8:17 AM CDT 11/18/2007 8:[address] [facility] ORDERABLES Edited Performing Organization Address City/[facility]/ZIP Co de Phone Number [facility] CLIA# [id number] [address] [place], [place] [address] * PRODUCT PLATELETS (11/18/2007 7:53 AM CDT) Specimen of unknown material (specimen) 11/18/2007 7:53 AM CDT 11/18/2007 9:32 AM CDT Narrative INTERFACE SYSTEM - 11/18/2007 9:32 AM CDT stat for PEG tube placement [facility] BLOOD BANK ORDERABLES Final Resu lt Performing Organization Address [facility] Co de Phone Number INTERFACE SYSTEM [...] and non- Americans is available on the [facility] Intranet at: [email or web address] Select: Lab Policies and Procedures Select: Reference Ranges - GFR Blood specimen (specimen) 11/17/2007 1:13 PM CDT 11/17/2007 2:37 PM CDT Cyril Hua MD CHEMISTRY ORDERABLES Ed ited [facility] CLIA# [id number] [address] [facility] [place] [place] [address] * XR CHEST PA OR AP (11/16/2007 6:42 PM CDT) Anatomical Region Laterality Modality Chest Other 11/16/2007 6:42 PM CDT Narrative 11/16/2007 9:13 PM CDT [facility] [address] [place], [place] [address] Admit Date: 11/16/2007 FRANCK LOUISE Sex: M Admit Prov: YE CORNELIUS Date: 1965 Primary Care Prov: CMRN: [id number] Room: ER-A N: [id number] IMAGING SERVICES Ordering Prov: N/A Accession Number: [id number] Interpretation Portable AP upright chest at 1840 [...] Procedure Note Cristina Otto MD - 11/16/2007 [facility] [address] [place], [place] [address] Admit Date: 11/16/2007 FRANCK LOUISE Sex: M Admit Prov: YE CORNELIUS Date: 1965 Primary Care Prov: CMRN: [id number] [facility] SSN: [id number] IMAGING SERVICES Ordering Prov: N/A Interpretation Portable [...] lt [facility] CLIA# [id number] [address] [place] [address] * (ABNORMAL) COMPREHENSIVE METABOLIC PANEL (11/16/2007 4:49 [...] and non- Americans is available on the [facility] Intran[facility] at: [email or web address] Select: Lab Policies and Procedures Select: Reference Ranges - GFR Blood specimen (specimen) 11/16/2007 4:49 PM CDT 11/16/2007 4:59 PM CDT Jaime Luong MD CHEMISTRY ORDERABLES Edited [facility] CLIA# [id number] [address] [facility] [place] [address] * (ABNORMAL) CBC WITH DIFFERENTIAL (11/16/2007 4:49 [...] LAB NEUTROPHILS 86(H) 45 - 70 % [facility] NEUTROPHIL ABSOLUTE 5.34 1.90 - 7.00 K/uL [facility] EOSINOPHILS 0 0 - 7 % [facility] EOSINOPHIL ABSOLUTE 0.02 0.00 - 0.70 K/uL [facility] LYMPHOCYTES 8(L) 16 - 45 % [facility] LYMPHOCYTE ABSOLUTE 0.49(L) 0.70 - 4.50 [...] MD HEMATOLOGY ORDERABLES Edited Performing Organization Address City/[facility]/ZIP Co de Phone Number [facility] CLIA# [id number] [address] [place] [address] * BLOOD CULTURE (11/16/2007 4:49 PM CDT) PRELIMINARY REPORT No growth to date. Culture in progress [facility] FINAL REPORT No growth [address] [facility] Blood specimen (specimen) 11/16/2007 4:49 PM CDT 11/16/2007 6:48 PM CDT us Jaime Luong MD MICROBIOLOGY - GENERAL ORDERABL ES Final Result Performing Organization Address City/[facility]/ZIP Co de Phone Number [facility] CLIA# [id number] [address] [place] [place] [address] * BLOOD CULTURE (11/16/2007 4:49 PM CDT) PRELIMINARY REPORT No growth to date. Culture in progress [facility] FINAL REPORT No growth [address] [facility] Blood specimen (specimen) 11/16/2007 4:49 PM CDT 11/16/2007 6:48 PM CDT Jaime Luong MD MICROBIOLOGY - GENERAL ORDERABL ES Final Result Performing Organization Address City/[facility]/ZIP Co de Phone Number [facility] CLIA# [id number] [address] [place] [address] * URINE CULTURE (11/16/2007 4:49 PM CDT) Pathologist [facility] PRELIMINARY REPORT Pending [facility] FINAL REPORT Polymicrobial growth present consistent with urethral jin and/or colonizing bacteria. [facility] 11/16/2007 4:49 PM CDT 11/16/2007 5:26 PM CDT Jaime Luong MD MICROBIOLOGY - GENERAL ORDERABL ES Final Result Performing Organization Address [facility] Co de Phone Number [facility] CLIA# [id number] [address] [place] [address] * (ABNORMAL) URINALYSIS WITH MICROSCOPIC (11/16/2007 4:49 PM CDT) Pathologist [facility] LEUKOCYTE ESTERASE UA Negative Negative [facility] RBC UA 4(H) 0 - 3 /HPF [facility] CLARITY UA Clear Clear [facility] GLUCOSE UA Negative Negative [facility] BLOOD UA 1+(A) Negative [facility] NITRITE UA Negative Negative [facility] EPITHELIAL CELLS, URINE 0-2 /HPF [facility] UROBILINOGEN UA <1 <=1 mg/dL [facility] SPECIFIC GRAVITY UA 1.017 1.001 - 1.035 [facility] PH UA 5.5 5.0 - 8.0 [facility] WBC UA 4(H) 0 - 3 /HPF [facility] KETONES UA Negative Negative [facility] COLOR UA Yellow [facility] BILIRUBIN UA Negative Negative [facility] PROTEIN UA Trace(A) Negative [facility] 11/16/2007 4:49 PM CDT 11/16/2007 4:59 PM CDT us Jaime Luong MD URINE ORDERABLES Final Result Performing Organization Address [facility] Co de Phone Number [facility] CLIA# [id number] [address] [place] [address] * ED HOLD (11/16/2007 4:32 PM CDT) SPECIMEN HOLD, BLOOD [address] [facility] Specimen of unknown material (specimen) 11/16/2007 4:32 PM CDT 11/16/2007 4:59 PM CDT us Jaime Luong MD CHEMISTRY ORDERABLES Final Resu lt Performing Organization Address City/[facility] Co de Phone Number [facility] CLIA# [id number] [address] [place] [address] documented in this encounter Visit Diagnoses Diagnosis Hypotension, unspecified documented in this encounter Care Teams Blade Aligner Relationship Specialty [place] [address] [place] [address] PCP - General 04/25/09 documented as of this encounter
--- OUTSIDE RECORDS SUMMARY | 2025-02-14 08:58 | XMS_ITS | Encounter Summary ---
Author Organization [employer] Address [address] [place] [address] Care Team Providers Care Jewelry Cutter Name Role Phone Franck Garcia MD Primary Care Provider [phone] Encounter Details Date Type Department Care Team (Late st Contact Info) Description 09/02/2007 Outpatient Historical [facility] Stephania Howard MD 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 Gender Identity Not on file Sexual [...] GLUCOSE POC 196(H) 65 - 99 mg/dL [facility] Venous blood specimen (specimen) 09/02/2007 3:53 PM CDT 09/02/2007 3:53 PM CDT us Stepahnia Howard MD POINT OF CARE TESTING Final Resu lt Performing Organization Address City/State/[facility] Co de Phone Number [facility] [address] [place] [address] * PATHOLOGY (09/02/2007 2:37 PM CDT) FINAL REPORT [facility] [address] [place] [address] Patient: FRANCK LOUISE : 1965 Procedure Date: 09/02/2007 Accession Date: 09/02/2007 Case No: [id number] Ordering Dr: STEPHANIA HOWARD Case types AW, BW, FW, NW and SH are performed by [place], [place] SURGICAL PATHOLOGY & NON-GYNECOLOGIC CYTOPATHOLOGY REPORT [...] ORDERABLES Fi nal Result Performing Organization Address City/[facility]/ZIP Co de Phone Number INTERFACE SYSTEM Refer to clinic/hospital department * (ABNORMAL) POC GLUCOSE (09/02/2007 2:36 PM CDT) GLUCOSE POC 210(H) 65 - 99 mg/dL [facility] Venous blood specimen (specimen) 09/02/2007 2:36 PM CDT 09/02/2007 2:36 PM CDT Stephania Howard MD POINT OF CARE TESTING Final Resu lt Performing Organization Address [facility] Co de Phone Number [facility] [address] [place] [address] * PATHOLOGY (09/02/2007 1:48 PM CDT) FINAL REPORT [facility] [address] [place], [place] [address] Patient: FRANCK LOUISE : 1965 Procedure Date: 09/02/2007 Accession Date: 09/02/2007 Case No: [id number] Ordering Dr: STEPHANIA HOWARD Case types AW, BW, FW, NW and SH are performed [place] [facility] [place] SURGICAL PATHOLOGY & NON-GYNECOLOGIC CYTOPATHOLOGY REPORT [...] - Acute inflammation. - Bacterial aggregates. [facility] 09.02.2007 04:01 pm Gross: Received are [...] fragments, which are submitted in block B1. [facility] 09.02.2007 04:01 pm Microscopic: Received are [...] ORDERABLES Fi nal Result Performing Organization Address City/[facility] Co de Phone Number INTERFACE SYSTEM Refer to clinic/hospital department * (ABNORMAL) POC GLUCOSE (09/02/2007 1:05 PM CDT) GLUCOSE POC 207(H) 65 - 99 mg/dL [facility] Venous blood specimen (specimen) 09/02/2007 1:05 PM CDT 09/02/2007 1:05 PM CDT Stephania Howard MD POINT OF CARE TESTING Final Resu lt Performing Organization Address [facility] Co de Phone Number [facility] [address] [place] [address] * (ABNORMAL) POC GLUCOSE (09/02/2007 12:23 PM CDT) GLUCOSE POC 197(H) 65 - 99 mg/dL [facility] Venous blood specimen (specimen) 09/02/2007 12:23 PM CDT 09/02/2007 12:23 PM CDT Stephania Howard MD POINT OF CARE TESTING Final Resu lt Performing Organization Address [facility] Co de Phone Number [facility] [address] [place] [address] * (ABNORMAL) POC RT, BLOOD GASES (09/02/2007 10:30 AM CDT) POTASSIUM POC 4.3 3.5 - 4.9 mmol/L [facility] HEMATOCRIT POC 49.0(H) 40.0 - 48.0 % [facility] PATIENT'S TEMPERATURE 37.0 Degree C [facility] COMMENT, GASES POC NOTIFIED [facility] Blood specimen (specimen) 09/02/2007 10:30 AM CDT 09/02/2007 10:30 AM CDT us Stephania Howard MD CHEMISTRY ORDERABLES Final Resul t Performing Organization Address City/State/[facility] Co de Phone Number [facility] [address] [facility] [place] [address] documented in this encounter Visit Diagnoses Not on filedocumented in this encounter Care Teams Jewelry Cutter Relationship Specialty [place] [address] [place] [address] PCP - General 04/25/09 documented as of this encounter
--- OUTSIDE RECORDS SUMMARY | 2025-02-14 08:58 | XMS_ITS | Encounter Summary ---
Author Organization [employer] Address 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 [place], [place] [address] Admit Date: 10/21/2008 FRANCK LOUISE Sex: M Admit Prov: YE CORNELIUS Date: 1965 Primary Care Prov: CMRN: [id number] Room: [facility] SSN: [id number] IMAGING SERVICES Ordering Prov: N/A Interpretation PET/CT [...] neck documented in this encounter Care Teams Independent Living Advisor Relationship Specialty [place] [address] [place] [address] PCP - General 04/25/09 documented as of this encounter
--- OUTSIDE RECORDS SUMMARY | 2025-02-14 08:58 | XMS_ITS | Encounter Summary ---
Author Organization [employer] Address 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 Gender Identity Not on file Sexual [...] 20 6 - 20 mg/dL [facility] ALKALINE PHOSPHATASE 107 40 - 129 U/L [facility] ALBUMIN 3.9 3.4 - 4.8 g/dL [facility] CHLORIDE 95(L) 96 - 108 mmol/L [facility] TOTAL PROTEIN 7.4 6.3 - 8.6 g/dL [facility] SODIUM 132(L) 135 - 145 mmol/L [facility] GLUCOSE 218(H) 65 - 99 mg/dL [facility] AST 17 12 - 38 U/L [facility] CO2 29 22 - 30 mmol/L [facility] CALCIUM 9.1 8.4 - 10.2 mg/dL [facility] POTASSIUM 4.6 3.5 - 4.9 mmol/L [facility] CREATININE 1.11 0.67 - 1.17 mg/dL [facility] ALT 11 0 - 41 U/L [facility] BILIRUBIN TOTAL 0.2 0.2 - 1.0 mg/dL [facility] GFR, >60 >=60 mL/min/1. 7 sq meter [facility] GFR >60 >=60 mL/min/1. 7 sq meter [facility] Comment: Modification of Diet in Renal Disease (MDRD) study formula. Estimated GFR rate interpretative information for both Americans and non- Americans is available on the [facility] Intranet at: [email or web address] Select: Lab Policies and Procedures Select: Reference Ranges - GFR Blood specimen (specimen) 11/27/2007 8:25 AM CDT 11/27/2007 8:25 AM CDT [employer] CHEMISTRY ORDERABLES Edited [facility] CLIA# [id number] [address] [place] [address] * (ABNORMAL) CBC WITH DIFFERENTIAL (11/27/2007 8:25 AM CDT) HEMATOCRIT 37.2(L) 40.0 - 48.0 % [facility] RDW-STDEV 54.2(H) 37.1 - 48.7 fL [facility] RBC 3.81(L) 4.50 - 5.40 M/uL [facility] Comment: All cbc indices show significant change from prior results, correlate clinically and redraw if necessary. MCHC 32.8 31.5 - 35.5 % [facility] MCV 97.6 82.0 - 99.0 fL [facility] PLATELETS 293 140 - 350 K/uL [facility] HEMOGLOBIN 12.2(L) 13.6 - 16.5 g/dL [facility] RDW 16.2(H) 11.5 - 14.5 % [facility] WBC 13.6(H) 4.0 - 9.8 K/uL [facility] MCH 32.0 27.2 - 32.6 pg [facility] MPV 10.2 9.3 - 12.4 fL [facility] CLUMPED PLATELETS Present [facility] NEUTROPHIL ABSOLUTE 10.88(H) 1.90 - 7.00 K/uL [facility] NEUTROPHILS, SEG 66 45 - 70 % [facility] BASOPHILS 0 0 - 2 % [facility] ANISOCYTOSIS Slight [facility] EOSINOPHIL ABSOLUTE 0.14 0.00 - 0.70 K/uL [facility] MONOCYTES 7 3 - 13 % [facility] REVIEWED ON SMEAR WBC & Plt Reviewed [facility] ATYPICAL LYMPHOCYTE 1 0 - 5 % [facility] LYMPHOCYTE ABSOLUTE 0.41(L) 0.70 - 4.50 K/uL [facility] BANDS 14(H) 0 - 5 % [facility] TOXIC GRANULATION Slight [facility] METAMYELOCYTE 4(H) <=0 % [facility] BASOPHILS ABSOLUTE 0.00 0.00 - 0.20 K/uL [facility] PLATELET EST. Consistent w/ count Normal [facility] EOSINOPHILS 1 0 - 7 % [facility] MONOCYTE ABSOLUTE 0.95 0.10 - 1.30 K/uL [facility] MYELOCYTES 5(H) <=0 % [facility] LYMPHOCYTES 2(L) 16 - 45 % [facility] Blood specimen (specimen) 11/27/2007 8:25 AM CDT 11/27/2007 8:25 AM CDT us [employer] HEMATOLOGY ORDERABLES Edited [facility] CLIA# [id number] [address] [place] [address] * (ABNORMAL) COMPREHENSIVE METABOLIC PANEL (11/06/2007 8:37 AM CDT) CREATININE 0.84 0.67 - 1.17 mg/dL [facility] ALT 25 0 - 41 U/L [facility] SODIUM 133(L) 135 - 145 mmol/L [facility] ALKALINE PHOSPHATASE 109 40 - 129 U/L [facility] CO2 28 22 - 30 mmol/L [facility] BILIRUBIN TOTAL 0.3 0.2 - 1.0 mg/dL [facility] POTASSIUM 4.0 3.5 - 4.9 mmol/L [facility] TOTAL PROTEIN 7.3 6.3 - 8.6 g/dL [facility] GLUCOSE 193(H) 65 - 99 mg/dL [facility] AST 17 12 - 38 U/L [facility] BUN 13 6 - 20 mg/dL [facility] CALCIUM 9.2 8.4 - 10.2 mg/dL [facility] ALBUMIN 4.1 3.4 - 4.8 g/dL [facility] CHLORIDE 95(L) 96 - 108 mmol/L [facility] GFR, >60 >=60 mL/min/1. 7 sq meter [facility] GFR >60 >=60 mL/min/1. 7 sq meter [facility] Comment: Estimated GFR rate interpretative information for both Americans and non- Americans is available on the [facility] Intranet at: [email or web address] Select: Lab Policies and Procedures Select: Reference Ranges - GFR Blood specimen (specimen) 11/06/2007 8:37 AM CDT 11/06/2007 8:45 AM CDT Hs[employer] Hu CHEMISTRY ORDERABLES Edited [facility] CLIA# [id number] [address] [place] [address] * (ABNORMAL) CBC WITH DIFFERENTIAL (11/06/2007 8:37 AM CDT) HEMOGLOBIN 13.7 13.6 - 16.5 g/dL [facility] RDW 14.6(H) 11.5 - 14.5 % [facility] MPV 9.9 9.3 - 12.4 fL [facility] WBC 5.9 4.0 - 9.8 K/uL [facility] MCH 31.1 27.2 - 32.6 pg [facility] HEMATOCRIT 41.1 40.0 - 48.0 % [facility] RDW-STDEV 48.0 37.1 - 48.7 fL [facility] RBC 4.40(L) 4.50 - 5.40 M/uL [facility] MCHC 33.3 31.5 - 35.5 % [facility] PLATELETS 189 140 - 350 K/uL [facility] MCV 93.4 82.0 - 99.0 fL [facility] BASOPHILS ABSOLUTE 0.03 0.00 - 0.20 K/uL [facility] MONOCYTES 10 3 - 13 % [facility] MONOCYTE ABSOLUTE 0.56 0.10 - 1.30 K/uL [facility] NEUTROPHILS 77(H) 45 - 70 % [facility] NEUTROPHIL ABSOLUTE 4.57 1.90 - 7.00 K/uL [facility] EOSINOPHILS 3 0 - 7 % [facility] EOSINOPHIL ABSOLUTE 0.15 0.00 - 0.70 K/uL [facility] LYMPHOCYTES 10(L) 16 - 45 % [facility] LYMPHOCYTE ABSOLUTE 0.60(L) 0.70 - 4.50 K/uL [facility] BASOPHILS 1 0 - 2 % [facility] Blood specimen (specimen) 11/06/2007 8:37 AM CDT 11/06/2007 8:45 AM CDT Hsiaoou Hu HEMATOLOGY ORDERABLES Edited INTERFACE SYSTEM Refer to clinic/hospital department [facility] CLIA# [id number] [address] [place] [address] * (ABNORMAL) COMPREHENSIVE METABOLIC PANEL (10/30/2007 3:14 PM CDT) POTASSIUM 4.4 3.5 - 4.9 mmol/L [facility] GLUCOSE 107(H) 65 - 99 mg/dL [facility] AST 18 12 - 38 U/L [facility] BUN 14 6 - 20 mg/dL [facility] CALCIUM 9.3 8.4 - 10.2 mg/dL [facility] CHLORIDE 96 96 - 108 mmol/L [facility] ALBUMIN 4.0 3.4 - 4.8 g/dL [facility] CREATININE 0.85 0.67 - 1.17 mg/dL [facility] SODIUM 134(L) 135 - 145 mmol/L [facility] ALT 40 0 - 41 U/L [facility] ALKALINE PHOSPHATASE 136(H) 40 - 129 U/L [facility] BILIRUBIN TOTAL 0.2 0.2 - 1.0 mg/dL [facility] CO2 30 22 - 30 mmol/L [facility] TOTAL PROTEIN 7.0 6.3 - 8.6 g/dL [facility] GFR, >60 >=60 mL/min/1. 7 sq meter [facility] GFR >60 >=60 mL/min/1. 7 sq meter [facility] Comment: Estimated GFR rate interpretative information for both Americans and non- Americans is available on the [facility] Intranet at: [email or web address] Select: Lab Policies and Procedures Select: Reference Ranges - GFR Blood specimen (specimen) 10/30/2007 3:14 PM CDT 10/30/2007 3:17 PM CDT [employer] CHEMISTRY ORDERABLES Edited [facility] CLIA# [id number] [address] [facility] [address] [place] [place] [address] * (ABNORMAL) CBC WITH DIFFERENTIAL (10/30/2007 3:14 PM CDT) WBC 6.9 4.0 - 9.8 K/uL [facility] MCH 30.9 27.2 - 32.6 pg [facility] MPV 10.8 9.3 - 12.4 fL [facility] HEMATOCRIT 40.0 40.0 - 48.0 % [facility] RDW-STDEV 44.7 37.1 - 48.7 fL [facility] RBC 4.34(L) 4.50 - 5.40 M/uL [facility] MCHC 33.5 31.5 - 35.5 % [facility] MCV 92.2 82.0 - 99.0 fL [facility] PLATELETS 96(L) 140 - 350 K/uL [facility] Comment: Results to be confirmed. HEMOGLOBIN 13.4(L) 13.6 - 16.5 g/dL [facility] RDW 13.8 11.5 - 14.5 % [facility] MONOCYTES 10 3 - 13 % [facility] MONOCYTE ABSOLUTE 0.67 0.10 - 1.30 K/uL [facility] NEUTROPHILS 76(H) 45 - 70 % [facility] NEUTROPHIL ABSOLUTE 5.21 1.90 - 7.00 K/uL [facility] EOSINOPHILS 2 0 - 7 % [facility] EOSINOPHIL ABSOLUTE 0.11 0.00 - 0.70 K/uL [facility] LYMPHOCYTES 12(L) 16 - 45 % [facility] LYMPHOCYTE ABSOLUTE 0.84 0.70 - 4.50 K/uL [facility] BASOPHILS 0 0 - 2 % [facility] BASOPHILS ABSOLUTE 0.03 0.00 - 0.20 K/uL [facility] Blood specimen (specimen) 10/30/2007 3:14 PM CDT 10/30/2007 3:17 PM CDT Hsiaoou Hu HEMATOLOGY ORDERABLES Edited INTERFACE SYSTEM Refer to clinic/hospital department [facility] CLIA# [id number] [address] [place] [address] documented in this encounter Visit Diagnoses Diagnosis Malignant neoplasm of head, face, and neck (CMS/HCC) Malignant neoplasm of head, face, and neck documented in this encounter Care Teams Reservations Agent Relationship Specialty Start [place] [address] [place] [address] PCP - General 04/25/09 documented as of this encounter
--- OUTSIDE RECORDS SUMMARY | 2025-02-14 08:58 | XMS_ITS | Encounter Summary ---
Author Organization [employer] Address [address] [place] [address] Care Team Providers Care Area Safety Manager Name Role Phone Franck Garcia MD Primary Care Provider [phone] Encounter Details Date Type Department Care Team (Latest Contact Info) Description 01/18/2008 Outpatient Historical [facility] Stephania Howard MD [address] 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 Gender Identity Not on file Sexual Orientation [...] PM CDT Narrative 01/19/2008 12:18 PM CDT [facility] [address] [place], [place] [address] Admit Date: 01/18/2008 FRANCK LOUISE Sex: M Admit Prov: STEPHANIA HOWARD Date: 1965 Primary Care Prov: CMRN: [id number] Room: [facility] SSN: [id number] IMAGING SERVICES Ordering Prov: N/A Accession Number: [id number] Interpretation CT SCAN SOFT TISSUE NECK WITH [...] Procedure Note Latesha Cartagena MD - 01/19/[address] [address] Admit Date: 01/18/2008 FRANCK LOUISE Sex: M Admit Prov: STEPHANIA HOWARD Date: 1965 Primary Care Prov: CMRN: [id number] Room: [facility] SSN: [id number] IMAGING SERVICES Ordering Prov: N/A Interpretation CT [...] tonsil documented in this encounter Care Teams Area Safety Manager Relationship Specialty [place] [address] [facility] [address] [place] [address] PCP - General 04/25/09 documented as of this encounter
--- OUTSIDE RECORDS SUMMARY | 2025-02-14 08:58 | XMS_ITS | Encounter Summary ---
Author Organization [employer], Address 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 Gender Identity Not on file Sexual Orientation [...] CDT) CO2 31(H) 22 - 30 mmol/L [facility] TOTAL PROTEIN 7.3 6.3 - 8.6 g/dL [facility] POTASSIUM 5.1(H) 3.5 - 4.9 mmol/L [facility] Comment: No significant hemolysis GLUCOSE 247(H) 65 - 99 mg/dL [facility] AST 17 12 - 38 U/L [facility] BUN 25(H) 6 - 20 mg/dL [facility] CALCIUM 9.8 8.4 - 10.2 mg/dL [facility] CHLORIDE 91(L) 96 - 108 mmol/L [facility] ALBUMIN 4.2 3.4 - 4.8 g/dL [facility] CREATININE 1.15 0.67 - 1.17 mg/dL [facility] SODIUM 132(L) 135 - 145 mmol/L [facility] ALT 15 0 - 41 U/L [facility] ALKALINE PHOSPHATASE 108 40 - 129 U/L [facility] BILIRUBIN TOTAL 0.2 0.2 - 1.0 mg/dL [facility] GFR, >60 >=60 mL/min/1. 7 sq meter [facility] GFR >60 >=60 mL/min/1. 7 sq meter [facility] Comment: Modification of Diet in Renal Disease (MDRD) study formula. Estimated GFR rate interpretative information for both Americans and non- Americans is available on the [facility] Intranet at: [email or web address] Select: Lab Policies and Procedures Select: Reference Ranges - GFR Blood specimen (specimen) 12/18/2007 9:22 AM CDT 12/18/2007 9:30 AM CDT Ever [employer] CHEMISTRY ORDERABLES Edited [facility] CLIA# [id number] [address] [place] [address] * (ABNORMAL) CBC WITH DIFFERENTIAL (12/18/2007 9:22 AM CDT) HEMOGLOBIN 11.1(L) 13.6 - 16.5 g/dL [facility] RDW 16.7(H) 11.5 - 14.5 % [facility] WBC 10.6(H) 4.0 - 9.8 K/uL [facility] MCH 32.4 27.2 - 32.6 pg [facility] MPV 9.9 9.3 - 12.4 fL [facility] HEMATOCRIT 33.7(L) 40.0 - 48.0 % [facility] RDW-STDEV 57.1(H) 37.1 - 48.7 fL [facility] RBC 3.43(L) 4.50 - 5.40 M/uL [facility] MCHC 32.9 31.5 - 35.5 % [facility] MCV 98.3 82.0 - 99.0 fL [facility] PLATELETS 198 140 - 350 K/uL [facility] MONOCYTE ABSOLUTE 0.74 0.10 - 1.30 K/uL [facility] LYMPHOCYTES 5(L) 16 - 45 % [facility] DOHLE BODIES Present [facility] PLATELET EST. Consistent w/ count Normal [facility] NEUTROPHIL ABSOLUTE 9.01(H) 1.90 - 7.00 K/uL [facility] NEUTROPHILS, SEG 82(H) 45 - 70 % [facility] HYPOCHROMIA Slight [facility] BASOPHILS 1 0 - 2 % [facility] EOSINOPHIL ABSOLUTE 0.11 0.00 - 0.70 K/uL [facility] MONOCYTES 7 3 - 13 % [facility] ANISOCYTOSIS Slight [facility] LYMPHOCYTE ABSOLUTE 0.53(L) 0.70 - 4.50 K/uL [facility] BANDS 3 0 - 5 % [facility] MYELOCYTES 1(H) <=0 % [facility] TOXIC GRANULATION Slight [facility] BASOPHILS ABSOLUTE 0.11 0.00 - 0.20 K/uL [facility] EOSINOPHILS 1 0 - 7 % [facility] POLYCHROMASIA Slight [facility] Blood specimen (specimen) 12/18/2007 9:22 AM CDT 12/18/2007 9:30 AM CDT Hsiaoou Hu HEMATOLOGY ORDERABLES Edited [facility] CLIA# [id number] [address] [place] [address] documented in this encounter Visit Diagnoses Diagnosis Malignant neoplasm of head, face, and neck (CMS/HCC) Malignant neoplasm of head, face, and neck documented in this encounter Care Teams Internal Combustion Engine Subassembler Relationship Specialty [place] [address] [place] [address] PCP - General 04/25/09 documented as of this encounter
--- OUTSIDE RECORDS SUMMARY | 2025-02-14 08:58 | XMS_ITS | Clinical Summary ---
Author Organization [facility] Address [address] [place] [address] Care Team Providers Care Commercial Real Estate Associate Name Role Phone Clifton Garcia MD Primary Care Provider [phone] Source Comments [facility],non-owned Affiliates and Associated Physician Practices is amultiple site organization consisting of ambulatory clinics and hospital sitesin [place], [place], [place] and [place]. This disclosure is being madepursuant to the Care Everywhere program and may not contain all information available regarding this patient. Last updated 18.[facility] Allergies No known active allergies Medications * Be aware that medications may not be up to date on this document. Alwaysverify current medications with the patient. metFORMIN (Glucophage) 500 MG tablet Take 1 (one) tablet by mouth 2 times daily with morning and evening meal Active polyethylene glycol 3350 (Miralax) 17 g packet 17 (seventeen) g by Enteral Tube route once daily 4 Active senna (Senokot) 8.6 MG tablet 1 (one) tablet by Enteral Tube route once daily 4 Active insulin aspart (NovoLOG) pen Inject 0 (zero) Units to 24 (twenty four) Units subcutaneously every 4 hours 4 Active clopidogrel (plaVIX) 75 MG tablet Take 1 (one) tablet by mouth once daily 4 Active atorvastatin (Lipitor) 80 MG tablet Take 1 (one) tablet by mouth at bedtime 4 Active aspirin (Aspirin) 81 MG chew tablet Take 1 (one) tablet by mouth once daily 4 Active finasteride (Proscar) 5 MG tablet Take 1 (one) tablet by mouth once daily 4 Active insulin glargine (Lantus/Semgle e) 100 units/mL pen Inject 30 (thirty) Units subcutaneously at bedtime 4 Active vitamin D3 (Cholecalcifer ol) 25 MCG (1000 UNITS) tablet 4 (four) tablets by Enteral Tube route once daily 4 Active multiple vitamins with iron tablet tablet 1 (one) tablet by Enteral Tube route once daily 4 Active midodrine (Proamatine) 10 MG tablet 1 (one) tablet by Enteral Tube route every 8 hours 4 Active Active Problems Problem Noted Date Diagnosed Date Severe malnutrition 06/01/2024 Adrenal insufficiency 05/08/2024 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 [...] Recorded Patient Health Questionnaire-2 Score 0 05/12/2024 [facility] of Occupat ional Health - Occupational Stress [...] any time in the past 12 m [facility], were you homeless or living in a residential (including now)? No 04/28/2024 Sex and Gender Information Value Date Recorded Sex Assigned at Not on file Legal Sex Male 11:03 AM ELEMENT BURNER Gender Identity Not on file Sexual Orientation Not on file Last Filed Vital Signs Vital Sign Reading Time Taken Comments Blood Pressure 138/103 06/02/2024 7:26 PM ELEMENT BURNER Pulse 101 06/02/2024 7:26 PM ELEMENT BURNER Temperature 36.4 C (97.5 F) 06/02/2024 7:34 AM ELEMENT BURNER Respiratory Rate 18 06/02/2024 4:27 AM ELEMENT BURNER Oxygen Saturation 98% 06/02/2024 7:34 AM ELEMENT BURNER Inhaled Oxygen Concentration 28% 05/06/2024 7 :59 PM ELEMENT BURNER Weight 56.2 kg (124 lb) 05/27/2024 9:15 PM ELEMENT BURNER Height 177.8 cm (5' 10) 05/11/2024 8:00 AM ELEMENT BURNER Body Mass Index 17.79 05/11/2024 8:00 AM ELEMENT BURNER Plan of Treatment Health Maintenance Due Date [...] 1-dose series) 2023 COVID-19 VACCINE ( - 2023- season) 2024 DIABETES RETINOPATHY SCREENING 04/28/2024 DIABETES-FOOT EXAM WITH MONOFILAMENT 04/28/2024 DEPRESSION SCREENING 06/23/2024 04/28/2024 DIABETES - URINE PROTEIN SCREENING 06/23/2024 DIABETES-HGB A1C 10/30/2024 05/02/2024, 11/2023, 11/16/2019, Additional history exists INFLUENZA VACCINE (#1) 2025 06/01/2024, 2019 DIABETES-SERUM CREATININE 05/29/20252023, 05/22/2024, 05/21/2024, Additional history exists HEPATITIS B VACCINE Aged Out No longe [...] COMPREHENSIVE METABOLIC PANEL Routine 05/29/2024 8:44 PM ELEMENT BURNER HEMOGLOBIN A1C Add on 05/02/2024 9:09 AM ELEMENT BURNER from Last 3 Months or Most Recently Relevant to Health Maintenance Results * (ABNORMAL) COMPREHENSIVE METABOLIC PANEL (05/29/2024 8:44 PM ELEMENT BURNER) BUN 26 7 - 26 mg/dL 05/29/2024 9:45 PM [facility] Creatinine 0.94 0.71 - 1.16 mg/dL 05/29/2024 9:45 PM [facility] Sodium 140 136 - 145 mmol/L 05/29/2024 9:45 PM [facility] Potassium 4.0 3.5 - 4.5 mmol/L 05/29/2024 9:45 PM [facility] Chloride 103 98 - 107 mmol/L 05/29/2024 9:45 PM [facility] CO2 27 22 - 29 mmol/L 05/29/2024 9:45 PM [facility] Glucose 194(H) 70 - 99 mg/dL 05/29/2024 9:45 PM [facility] Calcium 9.5 8.4 - 10.2 mg/dL 05/29/2024 9:45 PM [facility] Protein Total 6.7 6.0 - 8.3 g/dL 05/29/2024 9:45 PM [facility] Albumin 3.2(L) 3.4 - 5.0 g/dL 05/29/2024 9:45 PM [facility] Bilirubin Total 0.3 0.2 - 1.2 mg/dL 05/29/2024 9:45 PM [facility] Alkaline Phosphatase 72 40 - 150 U/L 05/29/2024 9:45 PM [facility] ALT 32 5 - 55 U/L 05/29/2024 9:45 PM [facility] AST 17 5 - 34 U/L 05/29/2024 9:45 PM [facility] Anion Gap 10 6 - 16 05/29/2024 9:45 PM [facility] BUN/Creatinine Ratio 28(H) 7 - 23 05/29/2024 9:45 PM [facility] Osmolality Calculated 300(H) 275 - 295 mOsm/kg 05/29/2024 9:45 PM [facility] Albumin/Globulin Ratio 0.9(L) 1.1 - 2.3 05/29/2024 9:45 PM [facility] eGFR by CKD-EPI >90 >=90 mL/min/1.7 3 m2 05/29/2024 9:45 PM [facility] Blood BLOOD SPECIMEN / Unknown Lab Venipuncture / Unknown 05/29/2024 8:44 PM ELEMENT BURNER 05/29/2024 9:15 PM ELEMENT BURNER us Oral Nguyen MD LAB - CHEMISTRY ORDERABLE S Final Result Performing Organization Address City/State/[facility] Co de Phone Number [facility] [address] [place] [address], [facility] [phone] * (ABNORMAL) HEMOGLOBIN A1C (05/02/2024 9:09 AM [facility]) Hemoglobin A1c 8.5(H) <=5.6 % 05/02/2024 2:42 PM [facility] Estimated Average Glucose 197 mg/dL 05/02/2024 2:42 PM [facility] Comment: HbA1c Interpretation: Normal : < 5.7% Pre-diabetes: 5.7-6.4% Diabetes: Equal to or greater than 6.5% Test results diagnostic of diabetes should be repeated for confirmation. Treatment target values recommended by ADA and other clinical organizations should be used to evaluate metabolic control in patients. Reference: [place] [employer], Standards of Care in Diabetes -2020 In patients 70 years and older consider HbA1c target range of 7.0-7.5% (Reference: Rico Mercedes et al. JAMDA. 2012) The Sebia assay for the measurement of HbA1c is a National Glycohemoglobin Standardization Program (NGSP) certified method. Blood BLOOD SPECIMEN / Unknown Venipuncture / Unknown 05/02/2024 9:09 AM ELEMENT BURNER 05/02/2024 9:20 AM ELEMENT BURNER us Martín Daly DO LAB - CHEMISTRY ORDERABLES Final Result [facility] [address] [place] [address], [facility] [phone] from Last 3 Months or Most Recently Relevant to Health Maintenance Insurance [facility] Advance Directives * Full Code (Latest Code Status on File) Date Activated Date Inactivated Comments 04/28/2024 10:02 AM 06/02/2024 9:04 PM Care Teams Commercial Real Estate Associate Relationship Specialty [place] [address] [facility] [address] [place] [address] PCP - General Internal Medicine 04/28/24
--- OUTSIDE RECORDS SUMMARY | 2025-02-14 08:58 | XMS_ITS | Encounter Summary ---
Author Organization [employer] Address [address] [place] [address] Care Team Providers Care Historiographer Name Role Phone Clifton Garcia MD Primary Care Provider [phone] Encounter Details Date Type Department Care Team (Latest Contact Info) Description 06/01/2008 Outpatient Historical HIS RADIATION THERAPY David Seymour MD [address] [place] [address] [address] [place] [address] Malignant Neoplasm of Oropharynx, Unspecified Site (CMS/HCC) Social History Tobacco Use Types Packs/Day Years Used Date Smoking Tobacco: Never Assessed Sex and Gender Information Value Date Recorded Sex Assigned at Not on file Legal Sex Male 5:32 AM BAG LOADER Gender Identity Not on file Sexual Orientation Not on file documented as of this encounter Plan of Treatment Not on file documented as of this encounter Visit Diagnoses Diagnosis Malignant neoplasm of oropharynx, unspecified site (CMS/HCC) Malignant neoplasm of oropharynx, unspecified site documented in this encounter Care Teams Historiographer Relationship Specialty [place] [address] [place] [address] PCP - General 04/25/09 documented as of this encounter
--- OUTSIDE RECORDS SUMMARY | 2025-02-14 08:58 | XMS_ITS | Encounter Summary ---
Author Organization [employer] Address [address] [place] [address] Care Team Providers Care Solution Coordinator Name Role Phone Clifton Garcia MD Primary Care Provider [phone] Encounter Details Date Type Department Care Team (Latest Contact Info) Description 02/17/2008 Outpatient Historical HIS RADIATION THERAPY David Seymour MD [address] [place] [address] [address] [place] [address] Malignant Neoplasm of Oropharynx, Unspecified Site (CMS/HCC) Social History Tobacco Use Types Packs/Day Years Used Date Smoking Tobacco: Never Assessed Sex and Gender Information Value Date Recorded Sex Assigned at Not on file Legal Sex Male 5:32 AM NECK BAND OPERATOR Gender Identity Not on file Sexual Orientation Not on file documented as of this encounter Plan of Treatment Not on file documented as of this encounter Visit Diagnoses Diagnosis Malignant neoplasm of oropharynx, unspecified site (CMS/HCC) Malignant neoplasm of oropharynx, unspecified site documented in this encounter Care Teams Solution Coordinator Relationship Specialty Start [place] [address] [place] [address] PCP - General 04/25/09 documented as of this encounter
--- OUTSIDE RECORDS SUMMARY | 2025-02-14 08:58 | XMS_ITS | Encounter Summary ---
Author Organization [email or web address] Address [address] [place] [address] Care Team Providers Care Theatrical Performer Name Role Phone Clifton Garcia MD Primary Care Provider [phone] Encounter Details Date Type Department Care Team (Latest Contact Info) Description 11/06/2007 Outpatient Historical HIS RADIATION THERAPY David Seymour MD [facility] [address] [place] [address] Hilario Howard MD [address] [facility]. 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
--- OUTSIDE RECORDS SUMMARY | 2025-02-14 08:58 | XMS_ITS | Encounter Summary ---
Author Organization [employer] Address 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 Gender Identity Not on file Sexual Orientation Not on file documented as of this encounter Plan of Treatment Not on file documented as of this encounter Procedures Procedure Name Priority Date/Time Associated Diagnosis Comments CBC WITH DIFFERENTIAL Stat 04/29/2008 9:37 AM MARINE FUEL DOCK ATTENDANT COMPREHENSIVE METABOLIC PANEL Stat 04/29/2008 9:37 AM MARINE FUEL DOCK ATTENDANT PET TUMOR OR INFECTION IMG W CT SKB MDTH Routine 04/25/2008 8:28 AM MARINE FUEL DOCK ATTENDANT documented in this encounter Results * (ABNORMAL) COMPREHENSIVE METABOLIC PANEL (04/29/2008 9:37 AM MARINE FUEL DOCK ATTENDANT) ALKALINE PHOSPHATASE 82 40 - 129 U/L [facility] BILIRUBIN TOTAL 0.3 0.2 - 1.0 mg/dL [facility] CO2 30 22 - 30 mmol/L [facility] POTASSIUM 4.5 3.5 - 4.9 mmol/L [facility] TOTAL PROTEIN 7.3 6.3 - 8.6 g/dL [facility] GLUCOSE 141(H) 65 - 99 mg/dL [facility] AST 22 12 - 38 U/L [facility] BUN 17 6 - 20 mg/dL [facility] CALCIUM 9.7 8.6 - 10.2 mg/dL [facility] ALBUMIN 4.5 3.4 - 4.8 g/dL [facility] CHLORIDE 97 96 - 108 mmol/L [facility] CREATININE 0.90 0.67 - 1.17 mg/dL [facility] ALT 21 0 - 41 U/L [facility] SODIUM 138 135 - 145 mmol/L [facility] GFR, >60 >=60 mL/min/1. 7 sq meter [facility] GFR >60 >=60 mL/min/1. 7 sq meter [facility] Comment: Modification of Diet in Renal Disease (MDRD) study formula. Estimated GFR rate interpretative information for both Americans and non- Americans is available on the [facility] Intranet at: [email or web address] Select: Lab Policies and Procedures Select: Reference Ranges - GFR Blood specimen (specimen) 04/29/2008 9:37 AM MARINE FUEL DOCK ATTENDANT 04/29/2008 9:43 AM MARINE FUEL DOCK ATTENDANT Hsiaoou Hu CHEMISTRY ORDERABLES Edited INTERFACE SYSTEM Refer to clinic/hospital department [facility] CLIA# [id number] [address] [place] [address] * (ABNORMAL) CBC WITH DIFFERENTIAL (04/29/2008 9:37 AM MARINE FUEL DOCK ATTENDANT) WBC 5.3 4.0 - 9.8 K/uL [facility] MCH 31.8 27.2 - 32.6 pg [facility] MPV 10.4 9.3 - 12.4 fL [facility] HEMATOCRIT 40.6 40.0 - 48.0 % [facility] RDW-STDEV 42.9 37.1 - 48.7 fL [facility] RBC 4.43(L) 4.50 - 5.40 M/uL [facility] MCHC 34.7 31.5 - 35.5 % [facility] MCV 91.6 82.0 - 99.0 fL [facility] PLATELETS 215 140 - 350 K/uL [facility] HEMOGLOBIN 14.1 13.6 - 16.5 g/dL [facility] RDW 12.7 11.5 - 14.5 % [facility] BASOPHILS 1 0 - 2 % [facility] BASOPHILS ABSOLUTE 0.05 0.00 - 0.20 K/uL [facility] MONOCYTES 10 3 - 13 % [facility] MONOCYTE ABSOLUTE 0.53 0.10 - 1.30 K/uL [facility] NEUTROPHILS 66 45 - 70 % [facility] NEUTROPHIL ABSOLUTE 3.53 1.90 - 7.00 K/uL [facility] EOSINOPHILS 4 0 - 7 % [facility] EOSINOPHIL ABSOLUTE 0.21 0.00 - 0.70 K/uL [facility] LYMPHOCYTES 19 16 - 45 % [facility] LYMPHOCYTE ABSOLUTE 1.01 0.70 - 4.50 K/uL [facility] Blood specimen (specimen) 04/29/2008 9:37 AM MARINE FUEL DOCK ATTENDANT 04/29/2008 9:43 AM MARINE FUEL DOCK ATTENDANT Ye [employer] HEMATOLOGY ORDERABLES Edited INTERFACE SYSTEM Refer to clinic/hospital department [facility] CLIA# [id number] [address] [place] [address] * PET TUMOR IMG W CT SKL BSE MID THG (04/25/2008 8:28 AM MARINE FUEL DOCK ATTENDANT) Anatomical Region Laterality Modality Other 04/25/2008 8:28 AM MARINE FUEL DOCK ATTENDANT Narrative 04/25/2008 10:45 AM MARINE FUEL DOCK ATTENDANT [facility] [address] [place], [place] [address] Admit Date: 04/25/2008 KIERADEMETRIFRANCK Sex: M Admit Prov: YE RECIO Date: 1965 Primary Care Prov: CMRN: [id number] Room: [facility] SSN: [id number] IMAGING SERVICES Ordering Prov: N/A Accession Number: [id number] Interpretation WHOLE BODY PET/CT HISTORY: 42 year [...] 10:44 Procedure Note Kole Gonzalez - 04/25/2008 [facility] [address] [place], [place] [address] Admit Date: 04/25/2008 FRANCK LOUISE Sex: M Admit Prov: YE RECIO Date: 1965 Primary Care Prov: CMRN: [id number] Room: [facility] SSN: [id number] IMAGING SERVICES Ordering Prov: N/A Interpretation WHOLE [...] neck documented in this encounter Care Teams Photographic Equipment Assembler Relationship Specialty [place] [address] [facility] [address] [place] [address] PCP - General 04/25/09 documented as of this encounter
--- OUTSIDE RECORDS SUMMARY | 2025-02-14 08:58 | XMS_ITS | Encounter Summary ---
Author Organization [facility] Address [address] [place] [address] Care Team Providers Care Mail Distributor Name Role Phone Franck Garcia MD Primary Care Provider [phone] Encounter Details Date Type Department Care Team (Latest Contact Info) Description 09/04/2007 Inpatient Historical [facility] Stephania Howard MD 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, [place] [address] Patient: FRANCK LOUISE : 1965 Procedure Date: 09/04/2007 Accession Date: 09/04/2007 Case No: [id number] Ordering Dr: STEPHANIA HOWARD Case types AW, BW, FW, NW and SH are performed by [facility] [place] [place], [place] SURGICAL PATHOLOGY & NON-GYNECOLOGIC CYTOPATHOLOGY REPORT [...] the posterior triangle nodes are in C10. [facility] 09.04.2007 08:17 pm Microscopic: Received are slides labeled [id number], Franck Louise. Sections of left tonsil identify [...] 15. Margin(s): See description. Perineural Invasion: Present. [facility] 09.07.2007 04:19 pm Staging Form: Yes. ELECTRONIC SIGNATURE FOR SARAH SIN M.D.- 09/08/07 04:42 pm INTERFACE SYSTEM ADDENDUM REPORT [facility] [address], [place] [address] Patient: FRANCK LOUISE : 1965 Procedure Date: 09/04/2007 Accession Date: 09/04/2007 Case No: [id number] Ordering Dr: STEPHANIA HOWARD Case types AW, BW, FW, NW and SH are performed by [facility] [place] [place] ADDENDUM REPORT NOTE: This addendum is issued to report the results of in situ hybridization studies for human papilloma virus. 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 Testing was performed and interpreted by [facility]. Tissue was tested via in situ hybridization using the INFORM low-risk and high-risk HPV kit. The low-risk HPV is interpreted as negative. The high- risk HPV was interpreted as positive. The high-risk HPV probe detects the following HPV genotypes: 16, 18, 31, 33, 35, 45, 51, 52, 56, 58, 59, 68, and 70. [facility] 02.08.08 ELECTRONIC SIGNATURE FOR SARAH SIN M.D. [...] tonsil. Gross: Two containers are received, labeled Farnck Louise. Received in the first container, additionally [...] the posterior triangle nodes are in C10. [facility] 09.04.2007 08:17 pm Microscopic: Received are slides labeled [id number], Franck Louise. Sections of left tonsil identify [...] CDT) HEMATOCRIT 48.2(H) 40.0 - 48.0 % [facility] HEMOGLOBIN 16.2 13.6 - 16.5 g/dL [facility] Blood specimen (specimen) 09/04/2007 12:14 PM CDT 09/04/2007 12:22 PM CDT Narrative [facility] - 09/04/2007 12:28 PM CDT RM 36 us Stephania Howard MD HEMATOLOGY ORDERABLES Final Resu lt [facility] [address] [place], [place] [address] * (ABNORMAL) BASIC METABOLIC PANEL (09/04/2007 11:43 AM CDT) BUN 16 6 - 20 mg/dL [facility] CHLORIDE 96 96 - 108 mmol/L [facility] GLUCOSE 188(H) 65 - 99 mg/dL [facility] SODIUM 134(L) 135 - 145 mmol/L [facility] CALCIUM 8.9 8.4 - 10.2 mg/dL [facility] CO2 29 22 - 30 mmol/L [facility] CREATININE 0.91 0.67 - 1.17 mg/dL [facility] POTASSIUM 4.4 3.5 - 4.9 mmol/L [facility] GFR, >60 >=60 mL/min/1. 7 sq meter [facility] GFR >60 >=60 mL/min/1. 7 sq meter [facility] Comment: Estimated GFR rate interpretative information for both Americans and non- Americans is available on the [facility] Intranet at: [email or web address] Select: Lab Policies and Procedures Select: Reference Ranges - GFR Blood specimen (specimen) 09/04/2007 11:43 AM CDT 09/04/2007 12:22 PM CDT Narrative [facility] - 09/04/2007 12:57 PM CDT rm36 us Stephania Howard MD CHEMISTRY ORDERABLES Edited [facility] [address] [place] [address] documented in this encounter Visit Diagnoses Diagnosis Malignant neoplasm of head, face, and neck (CMS/HCC) Malignant neoplasm of head, face, and neck documented in this encounter Care Teams Mail Distributor Relationship Specialty [place] [address] [place] [address] PCP - General 04/25/09 documented as of this encounter
--- OUTSIDE RECORDS SUMMARY | 2025-02-14 08:58 | XMS_ITS | Encounter Summary ---
Author Organization [facility] Address 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 Gender Identity Not on file Sexual Orientation Not on file documented as of this encounter Plan of Treatment Not on file documented as of this encounter Procedures Procedure Name Priority Date/Time Associated Diagnosis Comments PATHOLOGY Routine 03/14/2008 3:26 PM CDT HELICOBACTER PYLORI RAPID UREASE TEST Routine 03/14/2008 2:35 PM CDT documented in this encounter Results * PATHOLOGY (03/14/2008 3:26 PM CDT) FINAL REPORT [place] [address] [place], [place] [address] Patient: FRANCK LOUISE : 1965 Procedure Date: 03/14/2008 Accession Date: 03/14/2008 Case No: [id number] Ordering Dr: Ace BERNSTEIN Case types AW, BW, FW, NW and SH are performed by [facility] [place], [place], [place] SURGICAL PATHOLOGY & NON-GYNECOLOGIC CYTOPATHOLOGY REPORT [...] 07:06 pm Microscopic: The sections are labeled [id number], Franck Louise. The biopsy from the esophagus [...] ORDER SIN Final Result Performing Organization Address City/State/[facility] Co de Phone Number INTERFACE SYSTEM Refer to clinic/hospital department * HELICOBACTER PYLORI RAPID UREASE TEST (03/14/2008 2:35 PM CDT) FINAL REPORT KATHARINA Test: Negative [facility] 03/14/2008 2:35 PM CDT 03/14/2008 4:10 PM CDT Abilio Bernstein MD MICROBIOLOGY - GENERAL O RDERABLES Final Result INTERFACE SYSTEM Refer to clinic/hospital department [facility] CLIA# [id number] [address] [place] [address] documented in this encounter Visit Diagnoses Not on filedocumented in this encounter Care Teams Marketing Liaison Relationship Specialty [place] [address] [place], [place] [id number] PCP - General 04/25/09 documented as of this encounter
--- OUTSIDE RECORDS SUMMARY | 2025-02-14 08:58 | XMS_ITS | Encounter Summary ---
Author Organization [facility] Address 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 Gender Identity Not on file Sexual [...] CDT) CALCIUM 10.0 8.6 - 10.2 mg/dL [facility] Comment:Note new reference r devan effective 01/21/08 ALBUMIN 4.2 3.4 - 4.8 g/dL [facility] CHLORIDE 98 96 - 108 mmol/L [facility] CREATININE 0.96 0.67 - 1.17 mg/dL [facility] ALT 17 0 - 41 U/L [facility] SODIUM 138 135 - 145 mmol/L [facility] ALKALINE PHOSPHATASE 73 40 - 129 U/L [facility] CO2 28 22 - 30 mmol/L [facility] BILIRUBIN TOTAL 0.2 0.2 - 1.0 mg/dL [facility] POTASSIUM 4.3 3.5 - 4.9 mmol/L [facility] TOTAL PROTEIN 7.2 6.3 - 8.6 g/dL [facility] GLUCOSE 212(H) 65 - 99 mg/dL [facility] AST 14 12 - 38 U/L [facility] BUN 20 6 - 20 mg/dL [facility] GFR, >60 >=60 mL/min/1. 7 sq meter [facility] GFR >60 >=60 mL/min/1. 7 sq meter [facility] Comment: Modification of Diet in Renal Disease (MDRD) study formula. Estimated GFR rate interpretative information for both Americans and non- Americans is available on the [facility] Intranet at: [email or web address] Select: Lab Policies and Procedures Select: Reference Ranges - GFR Blood specimen (specimen) 01/29/2008 9:22 AM CDT 01/29/2008 9:25 AM CDT Ever Recio CHEMISTRY ORDERABLES Edited [facility] CLIA# [id number] [address] [place] [address] * (ABNORMAL) CBC WITH DIFFERENTIAL (01/29/2008 9:22 AM CDT) [facility] MCV 96.1 82.0 - 99.0 fL [facility] PLATELETS 223 140 - 350 K/uL [facility] HEMOGLOBIN 12.9(L) 13.6 - 16.5 g/dL [facility] RDW 12.9 11.5 - 14.5 % [facility] WBC 8.8 4.0 - 9.8 K/uL [facility] MCH 33.2(H) 27.2 - 32.6 pg [facility] MPV 9.6 9.3 - 12.4 fL [facility] HEMATOCRIT 37.3(L) 40.0 - 48.0 % [facility] RDW-STDEV 45.1 37.1 - 48.7 fL [facility] RBC 3.88(L) 4.50 - 5.40 M/uL [facility] MCHC 34.6 31.5 - 35.5 % [facility] ANISOCYTOSIS Slight [facility] MONOCYTES 8 3 - 13 % [facility] NEUTROPHIL ABSOLUTE 7.39(H) 1.90 - 7.00 K/uL [facility] NEUTROPHILS, SEG 84(H) 45 - 70 % [facility] PLATELET EST. Consistent w/ count Normal [facility] EOSINOPHIL ABSOLUTE 0.18 0.00 - 0.70 K/uL [facility] EOSINOPHILS 2 0 - 7 % [facility] LYMPHOCYTE ABSOLUTE 0.53(L) 0.70 - 4.50 K/uL [facility] LYMPHOCYTES 6(L) 16 - 45 % [facility] BASOPHILS ABSOLUTE 0.00 0.00 - 0.20 K/uL [facility] BASOPHILS 0 0 - 2 % [facility] MONOCYTE ABSOLUTE 0.70 0.10 - 1.30 K/uL [facility] Blood specimen (specimen) 01/29/2008 9:22 AM CDT 01/29/2008 9:25 AM CDT us Hsiaoou Hu HEMATOLOGY ORDERABLES Edited [facility] CLIA# [id number] [address] [place] [address] documented in this encounter Visit Diagnoses Diagnosis Malignant neoplasm of head, face, and neck (CMS/HCC) Malignant neoplasm of head, face, and neck documented in this encounter Care Teams Debone Processing Supervisor Relationship Specialty [place] [address] [place] [address] PCP - General 04/25/09 documented as of this encounter
--- OUTSIDE RECORDS SUMMARY | 2025-02-14 08:58 | XMS_ITS | Encounter Summary ---
Author Organization [email or web address] Address 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
--- OUTSIDE RECORDS SUMMARY | 2025-02-14 08:58 | XMS_ITS | Encounter Summary ---
Author Organization [employer] Address 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 Gender Identity Not on file Sexual [...] AM CDT Narrative 01/20/2009 4:30 PM CDT [facility] [address] [place], [place] [address] Admit Date: 01/20/2009 FRANCK LOUISE Sex: M Admit Prov: YE RECIO Date: 1965 Primary Care Prov: CMRN: [id number] [facility] [address] [place] [address] IMAGING SERVICES Ordering Prov: N/A Accession Number: [id number] Interpretation CT SOFT TISSUE NECK WITH IV [...] SMM Procedure Note Franck Mo - 01/20/2009 [place] [address] [place], [place] [address] Admit Date: 01/20/2009 FRANCK LOUISE Sex: M Admit Prov: YE RECIO Date: 1965 Primary Care Prov: CMRN: [id number] [facility] [address] [place] [address] IMAGING SERVICES Ordering Prov: N/A Interpretation CT [...] AM CDT Narrative 01/20/2009 1:30 PM CDT [address] [address] Admit Date: 01/20/2009 FRANCK LOUISE Sex: M Admit Prov: YE RECIO Date: 1965 Primary Care Prov: CMRN: [id number] Room: [facility] SSN: [id number] IMAGING SERVICES Ordering Prov: N/A Accession Number: [id number] Interpretation CT SCAN OF THE CHEST WITH [...] Procedure Note Linnette Dickson MD - 01/20/2009 [facility] [address] [place], [place] [address] Admit Date: 01/20/2009 FRANCK LOUISE Sex: M Admit Prov: ADRYAN SCOTTYSISI ADRIANNE Date: 1965 Primary Care Prov: CMRN: [id number] Room: [facility] SSN: [id number] IMAGING SERVICES Ordering Prov: N/A Interpretation CT [...] neck documented in this encounter Care Teams Belt Splicer Relationship Specialty [place] [address] [facility] [address] [address] [place] [address] PCP - General 04/25/09 documented as of this encounter
[2025-02-14] MEDS: LACTATED RINGERS 1,000 ML 999 ML IV CONT (09:14)
[2025-02-14 09:33] LABS: Hematocrit 43.5 % (42.0-52.0); Hemoglobin 13.5 g/dL (14.0-18.0); Immature Granulocyte Percent A 0.4 % (0-0.5); Lymphocytes Absolute Auto 1.23 K/mm3 (0.9-3.2); Mean Corpuscular HGB Conc 31.0 g/dl (32-36); Mean Corpuscular Hemoglobin 28.0 pg (26-34); Mean Corpuscular Volume 90.2 fl (80-100); Nucleated Red Blood Cells Absolute Auto 0.000 K/mm3 (0.0-0.012); Nucleated Red Blood Cells Perc 0.0 % (0.0-0.2); Platelet Count Result 253 k/mm3 (150-375); Red Blood Count 4.82 M/mm3 (4.6-6.20); White Blood Count 10.2 K/mm3 (4.5-10.0)
[2025-02-14 09:52] LABS: Anion Gap 11 mmol/L (4-12); Blood Urea Nitrogen 19 mg/dL (9-20); Calcium 9.3 mg/dL (8.4-10.2); Carbon Dioxide 20 mmol/L (22-30); Chloride 106 mmol/L (98-107); Estimated CRCL calculation 88 ml/min; Estimated Glomerular Filt Rate > 60; Glucose 150 mg/dL (65-110); Potassium 4.4 mmol/L (3.4-5.0); Sodium 137 mmol/L (137-145)
--- NOTE | 2025-02-14 14:18 | ED_ITS ---
HPI - Fall General Chief Complaint: Fall Stated Complaint: fall Time Seen by Provider: 02/14/25 08:26 History of Present Illness HPI Narrative: Patient presenting here after he tipped out of his wheelchair, this has happened in the past, based on weight he sits in his chair. He did hit his face, he is denying any pain anywhere other than a little bit to his neck. 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 Related Data Home Medications ?Medication ?Instructions ?Recorded ?Confirmed ?Last Taken ?Type alprazolam 0.5 mg tablet 0.5 mg PO TID PRN 01/10/23 Unknown History empagliflozin 10 mg-metformin ER 1 tablet PO DAILY Unknown History 1,000 mg tablet,extended release 24hr (Synjardy XR) glimepiride 4 mg tablet 4 mg PO QAM 01/10/23 Unknow n History lisinopril 20 1 tablet PO DAILY 01/10/23 Unknown History mg-hydrochlorothiazide 12.5 mg tablet pioglitazone 15 mg tablet 15 mg PO DAILY 01/10/23 Unk nown History simvastatin 40 mg tablet 40 mg PO DAILY 01/10/23 Unk nown History Allergies Allergy/AdvReac Type Severity Reaction Status Date / Time No Known Allergies Allergy Verified 09/02/24 10:03 Review of Systems 2 Review of Systems: All systems reviewed & are unremarkable except as noted in HPI and below PMFSH Family History Family History Father Diabetes mellitus Cancer Mother Hypertension Heart disease Social History Social History Social History: Clifton is very confident filling out medical forms. In the last 12 months he has not received assistance from an organization or program. 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 Lack of Transportation: No Lack of Food: Sometimes True Current Housing: I Have Housing Concerned About Future Housing: No Difficulty Paying Gas/Electric Bills: No Difficulty Paying for Meds: No Currently Unemployed: No Education: High School Diploma/GED Difficulty w/ Childcare or Family Care: No Living arrangements: alone Occupation/Education: occupation 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 EYES: EOMI, conjunctiva normal ENT: Hearing grossly intact LUNGS: Nonlabored breathing. HEART: [Regular rate and rhythm] ABD: [Soft], [nontender to palpation] EXT: Normal range of motion, no obvious deformities anywhere or tenderness to palpation SKIN: [No rashes or lesions.] NEURO: [Alert. No gross focal sensory or strength deficits.] PSYCH: Normal affect Course Vital Signs Vital signs: Vital Signs Temperature 98.4 F 02/14/25 08:19 Pulse Rate 88 02/14/25 08:19 Respiratory Rate 20 02/14/25 08:19 Blood Pressure 94/72 L 02/14/25 08:19 Pulse Oximetry 98 02/14/25 08:19 Oxygen Delivery Room Air 02/14/25 08:19 Temperature 98.4 F 02/14/25 08:19 Pulse Rate 79 02/14/25 11:01 Respiratory Rate 20 02/14/25 11:01 Blood Pressure 137/122 H 02/14/25 11:01 Pulse Oximetry 100 02/14/25 11:01 Oxygen Delivery Room Air 02/14/25 08:19 MDM - Fall MDM Narrative Medical decision making narrative: Patient presents here after mechanical fall, but he does report he has been a little bit lightheaded, he is not complaining of any complaints right now. Due to his report of him being lightheaded I did obtain some workup CT head and C-spine thankfully negative for acute abnormality. EKG shows sinus rhythm rate 90, CA 201, QRS 95, QTC 461, no significant ST elevations or depressions signs of acute ischemia or arrhythmia, patient also denies any chest pain or shortness of breath. Labs within acceptable limits, he is given fluids, and on re-evaluation he does feel completely fine, his repeat blood pressure is now 105/80, I did talk to him and let him know that he may need to talk to his doctor about lowering his blood pressure medication dosage. I did let him know to come back for any further issues he is agreeable to the plan Lab Data 02/14/25 09:27 02/14/25 09:27 Labs: Lab Results 02/14/25 Range/Units 09:27 WBC 10.2 H (4.5-10.0) K/mm3 RBC 4.82 (4.6-6.20) M/mm3 Hgb 13.5 L (14.0-18.0) g/dL Hct 43.5 (42.0-52.0) % MCV 90.2 (80-100) fl MCH 28.0 (26-34) pg MCHC 31.0 L (32-36) g/dl RDW 14.5 (11.5-14.5) % Plt Count 253 (150-375) k/mm3 MPV 11.6 H (7.4-10.4) fl Immature Gran % (Auto) 0.4 (0-0.5) % Neut % (Auto) 77.1 H (45.5-73.1) % Lymph % (Auto) 12.1 L (18.3-44.2) % [place] % (Auto) 7.6 (2.6-8.5) % Eos % (Auto) 1.9 (0-4.4) % Baso % (Auto) 0.9 (0.2-1.2) % Lymph # (Auto) 1.23 (0.9-3.2) K/mm3 [place] # (Auto) 0.8 H (0.1-0.6) K/mm3 Eos # (Auto) 0.2 (0-0.3) K/mm3 Baso # (Auto) 0.1 (0.0-0.1) K/mm3 Abs Immat Gran (auto) 0.04 H (0.00-0.031) K/mm3 Absolute Neuts (auto) 7.8 H (1.3-6.7) K/mm3 Absolute Nucleated RBC 0.000 (0.0-0.012) K/mm3 Nucleated RBC % 0.0 (0.0-0.2) % Sodium 137 (137-145) mmol/L Potassium 4.4 (3.4-5.0) mmol/L Chloride 106 (98-107) mmol/L Carbon Dioxide 20 L (22-30) mmol/L Anion Gap 11 (4-12) mmol/L BUN 19 D (9-20) mg/dL Creatinine 0.73 (0.7-1.3) mg/dL Estim Creat Clear Calc 88 ml/min Estimated GFR > 60 (59 - ) Glucose 150 H (65-110) mg/dL Calcium 9.3 (8.4-10.2) mg/dL Discharge Plan Discharge Clinical Impression: Fall Patient Disposition: NH Long Term/Asst Living Condition: Stable Instructions: Head Injury (ED), Fall Prevention (ED) Additional Instructions: Make sure keeping hydrated, please follow-up with your doctor, you may need an adjustment of her medications since your blood pressure was slightly lower today than usual. If you have any further issues please come back to the hospital. Patient Language: Filipino Prescriptions: No Action alprazolam 0.5 mg tablet 0.5 mg PO TID PRN glimepiride 4 mg tablet 4 mg PO QAM Rx Instructions: administer with breakfast lisinopril-hydrochlorothiazide 20-12.5 mg tablet 1 tablet PO DAILY simvastatin 40 mg tablet 40 mg PO DAILY Synjardy XR 10-1,000 mg tablet, IR - ER, biphasic 24hr 1 tablet PO DAILY pioglitazone 15 mg tablet 15 mg PO DAILY amoxicillin-pot clavulanate 875-125 mg tablet 1 tablet PO Q12H Qty: 10 0RF Follow-up/Referrals: Garcia,Clifton Glasgow MD [Primary Care Provider, Unknown] - 1 Day
== END 2025-02-14 12:00 ==
PROVIDERS: Emergency Provider Emergency Medicine; PCP Internal Medicine
DX: S09.93XA Unspecified injury of face, initial encounter (principal); R42 Dizziness and giddiness; G62.9 Polyneuropathy, unspecified; F17.290 Nicotine dependence, other tobacco product, uncomplicated; R94.31 Abnormal electrocardiogram [ECG] [EKG]; W05.0XXA Fall from non-moving wheelchair, initial encounter
CPT/HCPCS: 36415; 70450; 72125; 80048; 85025; 93005; 96360; 99283; 99284; J7120